=== PATIENT | male | born 1965 | race Caucasian/White ===

== ENCOUNTER 2018-04-02 12:38 | Emergency (ER) | payer MEDICAID ==
[~2018-04-02] VITALS: Ht 175.3 cm; Wt 72.6 kg
[2018-04-02] MEDS ORDERED: ADVIL200 MG PO (13:06)
[2018-04-02] MEDS ORDERED: LORAZEPAM2 MG PO (16:43)
[2018-04-02] MEDS ORDERED: ONDANSETRON ODT4 MG SL (16:44)
== END 2018-04-02 16:55 | disposition home or self-care (01) ==
LOC: ED 12:38
DX: F10.239 Alcohol dependence with withdrawal, unspecified (principal); R11.2 Nausea with vomiting, unspecified; R19.7 Diarrhea, unspecified; I10 Essential (primary) hypertension; F17.200 Nicotine dependence, unspecified, uncomplicated; Z88.8 Allergy status to other drugs, medicaments and biological substances; Z79.899 Other long term (current) drug therapy
CPT/HCPCS: 80053; 84484; 85025; 96360; 99284; J7030

== ENCOUNTER 2018-07-14 11:29 | Emergency (ER) | payer OTHER ==
[~2018-07-14] VITALS: Ht 175.3 cm; Wt 83.9 kg
[~2018-07-14 11:29] MED LIST: ADVIL200 MG PO; LORAZEPAM2 MG PO; ONDANSETRON ODT4 MG SL
[2018-07-14] MEDS ORDERED: PROPRANOLOL HCL10 MG PO (11:42)
[2018-07-14] MEDS ORDERED: LORAZEPAM1 MG PO (15:09)
== END 2018-07-14 15:34 | disposition home or self-care (01) ==
LOC: ED 11:29
DX: F43.10 Post-traumatic stress disorder, unspecified (principal); F41.9 Anxiety disorder, unspecified; F10.10 Alcohol abuse, uncomplicated; I10 Essential (primary) hypertension; F17.200 Nicotine dependence, unspecified, uncomplicated; Z88.6 Allergy status to analgesic agent; Z79.899 Other long term (current) drug therapy; Y90.7 Blood alcohol level of 200-239 mg/100 ml
CPT/HCPCS: 80053; 80176; 81001; 84443; 85025; 99284; G0480

== ENCOUNTER 2018-07-16 15:47 | Emergency (ER) | payer OTHER ==
[~2018-07-16] VITALS: Ht 175.3 cm; Wt 83.9 kg
[~2018-07-16 15:47] MED LIST changes: +LORAZEPAM1 MG PO; +PROPRANOLOL HCL10 MG PO
== END 2018-07-17 07:24 | disposition home or self-care (01) ==
LOC: ED 15:47
DX: T42.4X2A Poisoning by benzodiazepines, intentional self-harm, initial encounter (principal); F10.10 Alcohol abuse, uncomplicated; I10 Essential (primary) hypertension; F17.200 Nicotine dependence, unspecified, uncomplicated; Z79.899 Other long term (current) drug therapy; Y90.5 Blood alcohol level of 100-119 mg/100 ml
CPT/HCPCS: 36415; 80053; 80176; 81001; 85025; 96360; 99285; G0480; J7030

== ENCOUNTER 2019-09-12 18:58 | Emergency (ER) | payer OTHER ==
[~2019-09-12] VITALS: Ht 175.3 cm; Wt 96.6 kg
[2019-09-12] MEDS ORDERED: LEXAPRO20 MG PO (20:32)
[2019-09-12] MEDS ORDERED: ABILIFY5 MG PO (20:32)
[2019-09-12] MEDS ORDERED: CATAPRES0.3 MG PO (20:32)
[2019-09-12] MEDS ORDERED: HYDROXYZINE HCL25 MG PO (20:33)
== END 2019-09-12 23:26 | disposition home or self-care (01) ==
LOC: ED 18:58
DX: K52.9 Noninfective gastroenteritis and colitis, unspecified (principal); I10 Essential (primary) hypertension; F43.10 Post-traumatic stress disorder, unspecified; F17.200 Nicotine dependence, unspecified, uncomplicated; Z88.8 Allergy status to other drugs, medicaments and biological substances; Z79.899 Other long term (current) drug therapy
CPT/HCPCS: 80053; 81001; 83735; 85025; 96361; 96374; 99284-25; J2405; J7030

== ENCOUNTER 2020-03-19 12:18 | Emergency (ER) | payer OTHER ==
[~2020-03-19] VITALS: Ht 175.3 cm; Wt 95.3 kg
[~2020-03-19 12:18] MED LIST changes: +ABILIFY5 MG PO; +CATAPRES0.3 MG PO; +HYDROXYZINE HCL25 MG PO; +LEXAPRO20 MG PO
[2020-03-19] MEDS ORDERED: ALPRAZOLAM0.5 MG PO (12:38)
[2020-03-19] MEDS ORDERED: MINIPRESS2 MG PO (12:39)
[2020-03-19] MEDS ORDERED: MELATONIN10 MG PO (12:40)
--- NOTE | 2020-03-19 22:02 | EKG ---
[facility] [address] [facility] [place], [place] [address] Signed Normal sinus rhythm Cannot rule out Inferior infarct , age undetermined Abnormal ECG No previous ECGs available Confirmed by ISAIAH CONNER MD ([id number]) on 03/19/2020 10:02:29 PM Electronically Signed By: ISAIAH CONNER MD 03/19/202201 PATIENT NAME: LUCILLE PATEL Electrocardiogram DATE OF : 65 PHYSICIAN: ISAIAH CONNER MD REPORT #: [id number] REPORT IS CONFIDENTIAL AND NOT TO BE RELEASED WITHOUT AUTHORIZATION
== END 2020-03-19 14:07 | disposition home or self-care (01) ==
LOC: ED 12:18
DX: R20.0 Anesthesia of skin (principal); R20.2 Paresthesia of skin; G62.9 Polyneuropathy, unspecified; I10 Essential (primary) hypertension; F17.200 Nicotine dependence, unspecified, uncomplicated; Z79.899 Other long term (current) drug therapy
CPT/HCPCS: 70450; 71045; 80053; 84484; 85025; 85610; 85730; 93005; 93010; 99284-25

== ENCOUNTER 2020-07-27 12:30 | Observation (INO) | payer OTHER ==
[~2020-07-27] VITALS: Ht 175.3 cm; Wt 94.3 kg
--- OUTSIDE RECORDS SUMMARY | ~2020-07-27 | XMS | Clinical Summary ---
Demographics + + + | Address | [address] | | | [place] [address] | + + + | Home Phone | | + + + | Preferred Language | Unknown | + + + | Marital Status | | + + + | Yarsanism Affiliation | 1013 | + + + | Race | White | + + + | Ethnic Group | Not or | + + + Author + + + | Author | [facility] | | | and [place] | + + + | Organization | [facility] | | | and [place] | + + + | Address | Unknown | + + + | Phone | Unavailable | + + + Support + + + + + | Name | Relationship | Address | Phone | + + + + + | Susie Pollack | ECON | Unknown | | + + + + + | Mandeep Pollack | ECON | [place] [address] | | + + + + + Care Team Providers + +------+ + | Care [employer] Salesperson Name | Role | Phone | + +------+ + | Latasha Barnard | PCP | | + +------+ + Allergies No Known Allergies Medications + + + +---------+------+------+-------+ | Medication | Sig | Dispensed | Refills | Star | End | Statu | | | | | | t | Date | s | | | | | | Date | | | + + + +---------+------+------+-------+ | escitalopram | Take 30 mg by mouth | | 0 | | | Activ | | (LEXAPRO) 20 mg | Daily. | | | | | e | | tablet | | | | | | | + + + +---------+------+------+-------+ | prazosin | Take 5 mg by mouth | | 0 | | | Activ | | (MINIPRESS) 5 mg | nightly. | | | | | e | | capsule | | | | | | | + + + +---------+------+------+-------+ | ALPRAZolam (XANAX) | Take 0.5 mg by mouth | | 0 | | | Activ | | 0.5 mg tablet | Daily as needed. At | | | | | e | | | onset of panic | | | | | | | | attack | | | | | | + + + +---------+------+------+-------+ | clonazePAM | Take 1 mg by mouth | | 0 | | | Activ | | (KLONOPIN) 1 mg | nightly. | | | | | e | | tablet | | | | | | | + + + +---------+------+------+-------+ | busPIRone (BUSPAR) | Take 15 mg by mouth | | 0 | 05/1 | | Activ | | 10 MG tablet | 2 times daily. | | | 3/20 | | e | | | | | | 20 | | | + + + +---------+------+------+-------+ | acetaminophen | Take 1,000 mg by | | 0 | | | Activ | | (TYLENOL) 500 mg | mouth every 6 hours | | | | | e | | tablet | as needed for | | | | | | | | Headaches. | | | | | | + + + +---------+------+------+-------+ | Melatonin 10 MG | Take 10 mg by mouth | | 0 | | | Activ | | TABS | nightly. | | | | | e | + + + +---------+------+------+-------+ | aspirin 81 MG EC | Take 1 tablet by | 30 | 0 | 05/1 | | Activ | | tablet | mouth Daily. | tablet | | 04/16 | | e | | | | | | 20 | | | + + + +---------+------+------+-------+ +---+ + | | Additional | | | InformationPatient | | | not taking. Reason: | | | Not Available, | | | Reported on | | | 04/11/2020 9:20 AM | +---+ + + + +--------+---+------+---+-------+ | atorvaSTATin | Take 1 tablet by | 30 | 0 | 05/1 | | Activ | | (LIPITOR) 80 MG | mouth nightly. | tablet | | 03/17 | | e | | tablet | | | | 20 | | | + + +--------+---+------+---+-------+ +---+ + | | Additional | | | InformationPatient | | | not taking. Reason: | | | Not Available, | | | Reported on | | | 04/11/2020 9:20 AM | +---+ + + + +--------+---+------+---+-------+ | clonazePAM | Take 1 mg by mouth | | 0 | | | Activ | | (KLONOPIN) 1 mg | as needed. At onset | | | | | e | | tablet | of panic attack. No | | | | | | | | more than 2 tablets | | | | | | | | per day. (Give with | | | | | | | | Alprazolam) | | | | | | + + +--------+---+------+---+-------+ | hydrOXYzine | Take 50-100 mg by | | 0 | | | Activ | | (VISTARIL) 50 MG | mouth Twice daily | | | | | e | | capsule | as needed for | | | | | | | | Anxiety. | | | | | | + + +--------+---+------+---+-------+ | sildenafil | Take 100 mg by mouth | | 0 | | | Activ | | (VIAGRA) 100 MG | as needed for | | | | | e | | tablet | Erectile | | | | | | | | Dysfunction. Not to | | | | | | | | exceed 4 tabs in 1 | | | | | | | | month | | | | | | + + +--------+---+------+---+-------+ | lidocaine | Place 1 patch onto | | 0 | | | Activ | | (LIDODERM) 5% patch | the skin Daily. | | | | | e | | | Apply for 12 hours, | | | | | | | | then remove for 12 | | | | | | | | hours. | | | | | | + + +--------+---+------+---+-------+ | calcium carbonate | Chew and swallow 2 | | 0 | | | Activ | | (TUMS) 500 mg | tablets Daily as | | | | | e | | chewable tablet | needed for | | | | | | | | Heartburn. | | | | | | + + +--------+---+------+---+-------+ | ARTIFICIAL TEAR | Apply 2-3 drops to | | 0 | | | Activ | | SOLUTION OP | eye Twice daily as | | | | | e | | | needed (dry/itchy | | | | | | | | eyes). | | | | | | + + +--------+---+------+---+-------+ | cloNIDine | Take 1 tablet by | 60 | 3 | 05/2 | | Activ | | (CATAPRES) 0.1 mg | mouth 2 times daily. | tablet | | 7/20 | | e | | tablet | | | | 20 | | | + + +--------+---+------+---+-------+ | nicotine | Place 1 patch onto | 30 | 2 | 05/2 | | Activ | | (NICODERM) 14 mg/24 | the skin Daily. | patch | | 8/20 | | e | | hr | | | | 20 | | | + + +--------+---+------+---+-------+ | clopidogrel | Take 1 tablet by | 30 | 3 | 05/2 | | Activ | | (PLAVIX) 75 mg | mouth Daily. | tablet | | 7/20 | | e | | tablet | | | | 20 | | | + + +--------+---+------+---+-------+ Active Problems + + + | Problem | Noted Date | + + + | Dysphagia, oral phase | 07/11/2020 | + + + | Ischemic cerebrovascular accident (CVA) | 04/08/2020 | + + + | Hypertension | 04/08/2020 | + + + | Tobacco abuse | 04/08/2020 | + + + Encounters +--------+ + + + + | Date | Type | Specialty | Care Team | Description | +--------+ + + + + | 07/14/ | Telephone | Rehabilitation | Lenora Delgado, | Appointment | | 2019 | | | Speech Pathologist | | +--------+ + + + + | 07/10/ | Office | Rehabilitation | Lenora Delgado, | Ischemic | | 2019 | Visit | | Speech Pathologist | cerebrovascular | | | | | | accident (CVA) (HCC) | | | | | | (Primary Dx); | | | | | | Dysphagia, oral | | | | | | phase | +--------+ + + + + from Last 3 Months Social History + + + +--------+------+ | Tobacco Use | Types | Packs/Day | Years | Date | | | | | Used | | + + + +--------+------+ | Current Every Day | Cigarettes | | | | | Smoker | | | | | + + + +--------+------+ + +---+---+---+ | Smokeless Tobacco: | | | | | Never Used | | | | + +---+---+---+ + + +---------+ + | Alcohol Use | Drinks/Week | oz/Week | Comments | + + +---------+ + | Not Currently | | | | + + +---------+ + + + + | Sex Assigned at | Date Recorded | | | | + + + | Not on file | | + + + Last Filed Vital Signs + + + + + | Vital Sign | Reading | Time Taken | Comments | + + + + + | Blood Pressure | 123/63 | 04/23/2020 8:25 AM | | | | | PDT | | + + + + + | Pulse | 62 | 04/23/2020 8:25 AM | | | | | PDT | | + + + + + | Temperature | 37.1 C (98.7 F) | 04/23/2020 8:25 AM | | | | | PDT | | + + + + + | Respiratory Rate | 16 | 04/23/2020 8:25 AM | | | | | PDT | | + + + + + | Oxygen Saturation | 97% | 04/23/2020 8:25 AM | | | | | PDT | | + + + + + | Inhaled Oxygen | - | - | | | Concentration | | | | + + + + + | Weight | 93.8 kg (206 lb 12.7 | 04/17/2020 4:54 AM | | | | oz) | PDT | | + + + + + | Height | 175.3 cm (5' 9") | 04/10/2020 6:51 PM | | | | | PDT | | + + + + + | Body Mass Index | 30.54 | 04/10/2020 6:51 PM | | | | | PDT | | + + + + + Plan of Treatment +--------+---------+ + + + | Date | Type | Specialty | Care Team | Description | +--------+---------+ + + + | 07/29/ | Office | Rehabilitation | Lenora Delgado, | | | 2019 | Visit | | Speech Pathologist | | +--------+---------+ + + + | 08/05/ | Office | Rehabilitation | Lenora Delgado, | | | 2019 | Visit | | Speech Pathologist | | +--------+---------+ + + + | 08/07/ | Office | Rehabilitation | Lenora Delgado, | | | 2019 | Visit | | Speech Pathologist | | +--------+---------+ + + + + + +-------+ + | Health Maintenance | Due Date | Last | Comments | | | | Done | | + + +-------+ + | Hepatitis C | | | | | Screening | 5 | | | + + +-------+ + | Vaccine: | | | | | Pneumococcal 19-64 | 1 | | | | (1 of 1 - PPSV23) | | | | + + +-------+ + | Vaccine: | | | | | Dtap/Tdap/Td (1 - | 4 | | | | Tdap) | | | | + + +-------+ + | Colorectal Cancer | | | | | Screening | 5 | | | | (Colonoscopy) | | | | + + +-------+ + | Vaccine: Zoster (1 | | | | | of 2) | 5 | | | + + +-------+ + | Vaccine: Influenza | | | | | (#1) | 0 | | | + + +-------+ + Results Not on filefrom Last 3 Months Insurance + +--------+ +--------+-------+---------+--------+ | Payer | Benefi | Subscriber | Effect | Phone | Address | Type | | | t Plan | ID | ashish | | | | | | / | | Dates | | | | | | Group | | | | | | + +--------+ +--------+-------+---------+--------+ | [employer] | [employer] | [id number] | 05/02/20 | | | Indemn | | | NS | | 18-Pre | | | ity | | | ADMIN | | sent | | | | | | [place] | | | | | | | | [place] | | | | | | + +--------+ +--------+-------+---------+--------+ | [employer] | [employer] | [id number] | 05/02/20 | | | Indemn | | | NS | | 18-Pre | | | ity | | | ADMIN | | sent | | | | | | [place] | | | | | | | | [place] | | | | | | + +--------+ +--------+-------+---------+--------+ | [employer] | [place] | [id number] | 04/04/20 | | | Indemn | | | COMMUN | | 20-Pre | | | ity | | | ITY | | sent | | | | | | CARE | | | | | | + +--------+ +--------+-------+---------+--------+ + +--------+ +--------+ + + | Guarantor Name | Accoun | Relation to | Date | Phone | Billing Address | | | t Type | Patient | of | | | | | | | | | | + +--------+ +--------+ + + | Efren Pollack | Person | Self [birth year] | [address] | | | al/Fam | | 1965 | [phone] | [place] [address] | | | aline | | | 4 (Home) | | + +--------+ +--------+ + + | Efren Pollack | Person | Self | [birth year][address] | | [address] | | | al/Fam | | 1965 | [phone] | [place] [address] | | | aline | | | 4 (Home) | | + +--------+ +--------+ + + | Efren Pollack | Person | Self | [address] | | [address] | | | al/Fam | | 1965 | [phone] | [place] [address] | | | aline | | | 4 (Home) | | + +--------+ +--------+ + + Advance Directives + + + + + | Type | Date Recorded | Patient | Explanation | | | | Nanofabrication Specialist | | + + + + + | Power of | | | | | Steerer | | | | + + + + + | Advance | 04/08/2020 4:07 | | | | Directive | PM | | | + + + + + + + + + + | Code Status | Date | Date | Comments | | | Activated | Inactivated | | + + + + + | Full Code | 04/10/2020 | 04/23/2020 | | | | 6:51 PM | 2:15 PM | | + + + + + + + + +---+ | | | | | + + + +---+ | Full Code | 04/08/2020 | 04/10/2020 | | | | 9:07 PM | 6:44 PM | | + + + +---+
--- OUTSIDE RECORDS SUMMARY | ~2020-07-27 | XMS | Encounter Summary ---
Demographics + + + | Address | [address] | | | [place] [address] | + + + | Home Phone | | + + + | Preferred Language | Unknown | + + + | Marital Status | | + + + | Jehovah'S Witness Affiliation | 1013 | + + + | Race | White | + + + | Ethnic Group | Not or | + + + Author + + + | Author | [facility] | | | and [place] | + + + | Organization | [facility] | | | and [...] Mandeep Pollack | ECON | [place] [address] | | + + + + + Care Team Providers + +------+ + | Care Furniture Salesperson Name | Role | Phone | + +------+ + | Latasha Barnard | PCP | | + +------+ + Reason for Visit + + + | Reason | Comments | + + + | Headache (Adult - | | | New Onset Or New | | | Symptoms) | | + + + Auth/Cert +--------+--------+ + + + + | Status | Reason | Specialty | Diagnoses / | Referred By | Referred To | | | | | Procedures | Contact | Contact | +--------+--------+ + + + + | | | | Diagnoses | | | | | | | | | | | | | | Cerebrovascu | | | | | | | lar accident | | | | | | | (CVA), | | | | | | | unspecified | | | | | | | mechanism | | | | | | | (HCC) | | | +--------+--------+ + + + + Encounter Details +--------+ + + + + | Date | Type | Department | Care Team | Description | +--------+ + + + + | 04/08/ | Hospital | [facility] | Carter Hope MD | Cerebrovascular | | 2019 - | Encounter | MED CTR SUR[facility] | [address] | accident (CVA), | | | | [address] [place] | [place] | unspecified | | 04/10/ | | [place] [address] | [id number] | mechanism (HCC) | | 2019 | | [phone] | | (Primary Dx) | | | | | Loraine Mccallum, | | | | | | [address] | | | | | | [place] | | | | | | [phone] | | | | | | | | +--------+ + + + + Social History + + + +--------+------+ | [...] on file | | + + + documented as of this encounter Last Filed Vital Signs + + + + + | Vital Sign | Reading | Time Taken | Comments | + + + + + | Blood Pressure | 127/76 | 04/10/2020 3:13 PM | | | | | PDT | | + + + + + | Pulse | 62 | 04/10/2020 3:13 PM | | | | | PDT | | + + + + + | Temperature | 35.8 C (96.4 F) | 04/10/2020 3:13 PM | | | | | PDT | | + + + + + | Respiratory Rate | 19 | 04/10/2020 3:13 PM | | | | | PDT | | + + + + + | Oxygen Saturation | 94% | 04/10/2020 3:13 PM | | | | | PDT | | + + + + + | Inhaled Oxygen | - | - | | | Concentration | | | | + + + + + | Weight | 104.3 kg (230 lb) | 04/08/2020 3:17 PM | | | | | PDT | | + + + + + | Height | 175.3 cm (5' 9") | 04/08/2020 3:17 PM | | | | | PDT | | + + + + + | Body Mass Index | 33.97 | 04/08/2020 3:17 PM | | | | | PDT | | + + + + + documented in this encounter Discharge Summaries Kristopher Rios MD - 04/10/2020 4:15 PM PDTFormatting of this note might be differen t from the original. [facility] [place] HOSPITALIST DISCHARGE SUMMARY Pt. Name/Age/: Efren Pollack 55 y.o. 1965 Date of Admission: 04/08/2020 Date of Discharge: 04/10/2020 Admitting Physician: Loraine cMcallum MD Primary Care Provider: KORY Galarza Discharging Physician: Kristopehr Rios MD DISCHARGE DIAGNOSES: Active Hospital Problems Diagnosis Ischemic cerebrovascular accident (CVA) Hypertension Tobacco abuse Resolved Hospital Problems No resolved problems to display. DISCHARGE MEDICATIONS: Discharge Medications New Medications Details aspirin 81 MG EC tablet Take 1 tablet by mouth Daily. Start: April 11, 2020 atorvaSTATin 80 MG tablet Take 1 tablet by mouth nightly. aka: LIPITOR clopidogrel 75 mg tablet Take 1 tablet by mouth Daily. aka: PLAVIX Start: April 11, 2020 Unchanged Medications Details acetaminophen 325 mg tablet Take 650 mg by mouth every 4 hours as needed for Pain. aka: TYLENOL ALPRAZolam 0.5 mg tablet Take 0.5 mg by mouth 3 times daily as needed for Anxiety. aka: XANAX busPIRone 15 mg tablet Take 15 mg by mouth 2 times daily. aka: BUSPAR clonazePAM 1 mg tablet Take 1 mg by mouth nightly as needed for Anxiety. aka: klonoPIN cloNIDine 0.2 MG tablet Take 0.2 mg by mouth 2 times daily. aka: CATAPRES escitalopram 10 mg tablet Take 30 mg by mouth Daily. aka: LEXAPRO hydrOXYzine 50 MG tablet Take 100 mg by mouth 3 times daily as needed for Itching. aka: ATARAX melatonin 1 mg Tabs Take 10 mg by mouth nightly as needed. prazosin 5 mg capsule Take 5 mg by mouth nightly. aka: MINIPRESS [facility] COURSE: Please refer to the H&P for full details and the most recent rounding rounding (progress) n ote. 55M PMhx HTN, Anxiety, Depression, presented with around 2-3 weeks of left sided weakness, mild expressive aphasia and left visual field deficits, progressively worsened, admitted for subacute ischemic CVA, no current hemorrhagic conversion. #Acute Ischemic CVA, right posterior cerebral artery distribution Please see H&P for details. In brief, patient noticed to have symptoms of left sided weakne ss 03/19, evaluated in [place] and had a nonemegent outpatient MRI that was done on 04/03. Co ncern for hemorrhage at on 04/03 MRI brain and patient noted not to be on aspirin/plavix possi silva because of that finding, however it was unclear if it was stroke at that point and MS neo s on the differential. Weakness and left sided peripheral vision persisted and reevaluated i n [place] transferred to [place] for MRI. 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 As d iscussed below the admitting provider and Dr. Rios discussed findings with telestroke. Aspi rin/plavix and statin started on 04/08 after CTA findings and tpa/thrombectomy not indicated given length of symptoms. During hospitalization symptoms did not worsen, headache controlle d with tylenol during admission. No new neurologic symptoms during admission. Patient evalua singh by inpatient rehab and admitted to IPR on 04/[address] Vanegas's service. Recommend to continue telemetry during IPR service, recommend 30 day holter monitor to be arranged as ou tpatient, I discussed with [facility] that this can be arranged as outpatient. ECHO 04/09 not ed EF 65% with possible diastolic dysfunction, patient may have component of CHFpEF but on r oom air and euvolemic this can be followed up as outpatient, no diuresis required at time of discharge. As noted per progress note: MRI brain 04/09: Right posterior cerebral artery distribution: right occipital love, posteri or medial right tempral lobe, posterior right corpus callosm, posterior right thalamus. Like ly Subacute in nature. 04/08 CTA head/neck: Occlusion of right posterior cerebral artery Telestroke said to have been consulted but currently no note, will d/w telestroke with abov e finding. Dr. Reyes. Discussed case with him, agrees would not benefit from tpa at this luis e and to prevent further insults with aspirin/plavix/statin. Also recommended holter monitor Initial insult likely 03/19 and seen in [facility] in [place], was to follow up outp atient but has not yet prior to admission on 04/08. Not Tpa candidate. 04/09 ECHO: EF stable, possible diastolic dysfunction noted, no PFO, no clot 04/10: no new neurologic changes. IPR evaluation. Patient stable for discharge once able. -30 day Holter monitor as outpatient after discussion with tele stroke on 04/09 -Inpatient rehab -continue aspirin/plavix and high dose statin -smoking cessation, counseled #HTN Continue clonidine, permissive HTN #Anxiety/Depression Clonazapem, Xanax, escitalopram #Tobacco use. Nicotine patch, cessation Most recent weight: Input and output for last 24hrs: Wt Readings from Last 1 Encounters: 04/08/20 104.3 kg (230 lb) I/O last 24 Hours: In: 2009 [P.O.:2009] Out: 750 [Urine:750] Vitals Ranges: Temp: [35.7 C (96.2 F)-36.7 C (98 F)] 35.8 C (96.4 F) Pulse: [52-95] 62 Resp: [16-19] 19 BP: (105-132)/(61-76) 127/76 Vitals: Temp: 35.8 C (96.4 F) BP: 127/76 Pulse: 62 Resp: 19 SpO2: 94 % SpO2 94 % on room air at flow rate 3L/min PHYSICAL EXAM: Patient seen and examined by me on discharge day General NAD, AOx3 Cardiac RRR, no murmurs rubs or gallups Extremities No edema Lung CTA bilaterally Abdominal Soft, NT, ND, NBS Neuro Balance disturbance but cerebellar signs intact, 5/5 MS bilaterally, sluggish movement of l eft arm and leg noticeable but full range of motion, no facial assymmetry, no slurred speech . Noticeable left sided hemianopsia central vision both eyes is spared PROCEDURES AND CONSULTS: Procedures 04/09 MRI brain without contrast IMPRESSION: Right posterior cerebral artery distribution infarction involving the right occipital lobe, posterior medial right temporal lobe, posterior right corpus callosum, and posterior right thalamus. Nonspecific T2/FLAIR hyperintense periventricular and subcortical white matter findings likely reflect chronic microvascular changes. Chronic basal ganglia lacunar infarctions. Mastoid effusions, left greater than right. 04/08 CTA head neck IMPRESSION: Occlusion of the right posterior cerebral artery approximately 1 cm from its origin. High-grade and moderate to high-grade narrowing in the intracranial right and left vertebral arteries. No definite posterior communicating arteries. No significant atherosclerotic narrowing in the internal carotid arteries Bilaterally. CT head without contrast IMPRESSION: Findings in the right occipital and temporal lobes consistent with the history of subacute ischemia and probable cortical mineralization. Encephalomalacia in the left cerebellar hemisphere is diffusely with a chronic infarct. Bilateral white matter disease. Left otitis media. Consults Telestroke PT/OT IPR CM PENDING RESULTS: DISPOSITION AND DISCHARGE INSTRUCTIONS: Follow-up Information KORY Galarza. Schedule an appointment as soon as possible for a visit in 1 week. Specialty: Family Nurse Practitioner Why: Hospital follow up [facility] [address] Condition: Patient being discharged with condition improved Transferred to Inpatient rehab Diet: cardiac Greater than 30 minutes were spent on discharge and coordination of post-hospital care. Electronically signed by: Kristopher Rios MD, 04/10/2020 4:31 PM [facility] Reference. This is NOT part of the patient's formal assessment section. In the assessment or plan section of notes the author may date some of the subsections with a number such as "23" or "23rd" to indicate the date of that entry or event. In the example below the 1st line is the original entry and the subsequent lines indicate flowing updates to the subsection: Example assessment subsection (such as CHF or CP or Pneumonia) Patient is improved today with resolution of symptoms 24th Worse with recurrence of symptoms requiring further testing Portions of this chart may have been created with [employer] voice recognition software. Occasi onal wrong-word or sound-alike substitutions may have occurred due to the inherent phillips itations of voice recognition software. Please read the chart carefully and recognize, using context, where these substitutions have occurred documented in th is encounter Medications at Time of Discharge + + + +---------+ + + | Medication | Sig | Dispensed | Refills | Start | End Date | | | | | | Date | | + + + +---------+ + + | acetaminophen | Take 1,000 mg by | | 0 | | | | (TYLENOL) 500 mg | mouth every 6 hours | | | | | | tablet | as needed for | | | | | | | Headaches. | | | | | + + + +---------+ + + | ALPRAZolam (XANAX) | Take 0.5 mg by mouth | | 0 | | | | 0.5 mg tablet | Daily as needed. At | | | | | | | onset of panic | | | | | | | attack | | | | | + + + +---------+ + + | ARTIFICIAL TEAR | Apply 2-3 drops to | | 0 | | | | SOLUTION OP | eye Twice daily as | | | | | | | needed (dry/itchy | | | | | | | eyes). | | | | | + + + +---------+ + + | aspirin 81 MG EC | Take 1 tablet by | 30 | 0 | / | | | tablet | mouth Daily. | tablet | | 20 | | + + + +---------+ + + | atorvaSTATin | Take 1 tablet by | 30 | 0 | / | | | (LIPITOR) 80 MG | mouth nightly. | tablet | | 20 | | | tablet | | | | | | + + + +---------+ + + | busPIRone (BUSPAR) | Take 15 mg by mouth | | 0 | / | | | 10 MG tablet | 2 times daily. | | | 20 | | + + + +---------+ + + | calcium carbonate | Chew and swallow 2 | | 0 | | | | (TUMS) 500 mg | tablets Daily as | | | | | | chewable tablet | needed for | | | | | | | Heartburn. | | | | | + + + +---------+ + + | clonazePAM | Take 1 mg by mouth | | 0 | | | | (KLONOPIN) 1 mg | as needed. At onset | | | | | | tablet | of panic attack. No | | | | | | | more than 2 tablets | | | | | | | per day. (Give with | | | | | | | Alprazolam) | | | | | + + + +---------+ + + | clonazePAM | Take 1 mg by mouth | | 0 | | | | (KLONOPIN) 1 mg | nightly. | | | | | | tablet | | | | | | + + + +---------+ + + | cloNIDine | Take 1 tablet by | 60 | 3 | 04/23/20 | | | (CATAPRES) 0.1 mg | mouth 2 times daily. | tablet | | 20 | | | tablet | | | | | | + + + +---------+ + + | clopidogrel | Take 1 tablet by | 30 | 3 | 04/23/20 | | | (PLAVIX) 75 mg | mouth Daily. | tablet | | 20 | | | tablet | | | | | | + + + +---------+ + + | escitalopram | Take 30 mg by mouth | | 0 | | | | (LEXAPRO) 20 mg | Daily. | | | | | | tablet | | | | | | + + + +---------+ + + | hydrOXYzine | Take 50-100 mg by | | 0 | | | | (VISTARIL) 50 MG | mouth Twice daily | | | | | | capsule | as needed for | | | | | | | Anxiety. | | | | | + + + +---------+ + + | lidocaine | Place 1 patch onto | | 0 | | | | (LIDODERM) 5% patch | the skin Daily. | | | | | | | Apply for 12 hours, | | | | | | | then remove for 12 | | | | | | | hours. | | | | | + + + +---------+ + + | Melatonin 10 MG | Take 10 mg by mouth | | 0 | | | | TABS | nightly. | | | | | + + + +---------+ + + | nicotine | Place 1 patch onto | 30 | 2 | //20 | | | (NICODERM) 14 mg/24 | the skin Daily. | patch | | 20 | | | hr | | | | | | + + + +---------+ + + | prazosin | Take 5 mg by mouth | | 0 | | | | (MINIPRESS) 5 mg | nightly. | | | | | | capsule | | | | | | + + + +---------+ + + | sildenafil | Take 100 mg by mouth | | 0 | | | | (VIAGRA) 100 MG | as needed for | | | | | | tablet | Erectile | | | | | | | Dysfunction. Not to | | | | | | | exceed 4 tabs in 1 | | | | | | | month | | | | | + + + +---------+ + + | busPIRone (BUSPAR) | Take 10 mg by mouth | | 0 | 03/30/20 | | | 10 MG tablet | 2 times daily. For 5 | | | 20 | 0 | | | days | | | | | + + + +---------+ + + | busPIRone (BUSPAR) | Take 10 mg by mouth | | 0 | 04/04/20 | | | 10 MG tablet | every morning and 15 | | | 20 | 0 | | | mg every evening | | | | | | | for 5 days. | | | | | + + + +---------+ + + | cloNIDine | Take 0.2 mg by mouth | | 0 | 04/04/20 | | | (CATAPRES) 0.2 MG | 2 times daily. | | | 20 | 0 | | tablet | | | | | | + + + +---------+ + + | cloNIDine | Take 0.2 mg by mouth | | 0 | | | | (CATAPRES) 0.2 MG | 2 times daily. | | | | 0 | | tablet | | | | | | + + + +---------+ + + | cloNIDine | Take 0.15 mg by | | 0 | | | | (CATAPRES) 0.3 MG | mouth 2 times daily. | | | | 0 | | tablet | | | | | | + + + +---------+ + + | clopidogrel | Take 1 tablet by | 30 | 0 | 04/11/20 | | | (PLAVIX) 75 mg | mouth Daily. | tablet | | 20 | 0 | | tablet | | | | | | + + + +---------+ + + | hydrOXYzine | Take 100 mg by mouth | | 0 | | | | (ATARAX) 50 MG | 3 times daily as | | | | 0 | | tablet | needed for Itching. | | | | | + + + +---------+ + + | prazosin | Take 2 mg by mouth | | 0 | | | | (MINIPRESS) 2 MG | nightly. | | | | 0 | | capsule | | | | | | + + + +---------+ + + | tetrahydrozoline | Place 2 drops into | | 0 | | | | (VISINE) 0.05% | both eyes Twice | | | | 0 | | ophthalmic solution | daily as needed. | | | | | | | Dry/itchy eyes | | | | | + + + +---------+ + + documented as of this encounter Progress Notes Kristopher Rios MD - 04/10/2020 11:57 AM PDTFormatting of this note might be differen t from the original. [place], [place] HOSPITALIST PROGRESS NOTE Patient: Efren Pollack : 1965: Age: 55 y.o. MedRec: [id number] PCP: KORY Galarza Admission date: 04/08/2020 Hospital day # : 2 Physician author: Kristopher Rios MD Today: 04/10/2020 Assessment and Hospital Course Active Hospital Problems Diagnosis Ischemic cerebrovascular accident (CVA) Hypertension Tobacco abuse Resolved Hospital Problems No resolved problems to display. 55M PMhx HTN, Anxiety, Depression, presented with around 2-3 weeks of left sided weakness, mild expressive aphasia and left visual field deficits, progressively worsened, admitted for subacute ischemic CVA, no hemorrhagic conversion identified on scans during this admission. Plan #Acute Ischemic CVA, right posterior cerebral artery distribution MRI brain 04/09: Right posterior cerebral artery distribution: right occipital love, posteri or medial right tempral lobe, posterior right corpus callosm, posterior right thalamus. Like ly Subacute in nature. 04/08 CTA head/neck: Occlusion of right posterior cerebral artery Telestroke said to have been consulted but currently no note, will d/w telestroke with abov e finding. Dr. Reyes. Discussed case with him, agrees would not benefit from tpa at this luis e and to prevent further insults with aspirin/plavix/statin. Also recommended holter monitor Initial insult likely 03/19 and seen in [facility] in [place], was to follow up outp atient but has not yet prior to admission on 04/08. Not Tpa candidate. 04/09 ECHO: EF stable, possible diastolic dysfunction noted, no PFO, no clot 04/10: no new neurologic changes. IPR evaluation. Patient stable for discharge once able. -30 day Holter monitor as outpatient after discussion with tele stroke on 04/09 -Inpatient rehab consult, can benefit from structured setting -continue aspirin/plavix and high dose statin -smoking cessation, counseled #HTN Continue clonidine, permissive HTN #Anxiety/Depression Clonazapem, Xanax, escitalopram #Tobacco use. Nicotine patch, cessation DVT PPx: lovenox GI PPx: protonix Diet: cardiac diet DIspo: Pending IPR evaluation per PT/OT. Given [facility] coverage may not qualify, will follow up if can be transferred to SNF for PT/OT vs home with home health PT/OT. Kristopher Rios MD 04/10/2020 11:57 AM Merged with [facility] Subjective CC Had frontal headache overnight, controlled with tylenol. No new neurologic changes overnigh t, sluggishness of left arm and leg. Left peripheral vision deficit continued. ROS See above Objective Exam General NAD, AOx3 Cardiac RRR, no murmurs rubs or gallups Extremities No edema Lung CTA bilaterally Abdominal Soft, NT, ND, NBS Neuro Balance disturbance but cerebellar signs intact, 5/5 MS bilaterally, sluggish movement of l eft arm and leg noticeable but full range of motion, no facial assymmetry, no slurred speech . Noticeable left sided hemianopsia central vision both eyes is spared Serial weights: Filed Weights: 04/08/20 1517 Weight: 104.3 kg (230 lb) Most recent weight: Input and output 2 shifts and 3 shifts: Wt Readings from Last 1 Encounters: 04/08/20 104.3 kg (230 lb) I/O last 24 Hours: In: 2009 [P.O.:2009] Out: 750 [Urine:750] I/O last 3 completed shifts: In: 2010 [P.O.:2009] Out: 1100 [Urine:1100] Vitals Ranges: Temp: [35.7 C (96.2 F)-36.7 C (98 F)] 36.2 C (97.2 F) Pulse: [52-95] 95 Resp: [16-18] 16 BP: (105-132)/(61-75) 132/67 Vitals: Temp: 36.2 C (97.2 F) BP: 132/67 Pulse: 95 Resp: 16 SpO2: 96 % SpO2 96 % on room air at flow rate 3L/min Diet and Supplements Diet Diet fat and cholesterol modified; Effective Now Number of Occurrences: Until Specified Order Questions: Type Diet fat and cholesterol modified Objective Data Allergies: No Known Allergies Current Medications: Current Facility-Administered Medications Medication Dose Route Frequency Provider Last Rate Last Dose acetaminophen (TYLENOL) 160 mg/5 mL liquid 650 mg 650 mg Per NG tube Q4H PRN Loraine conti MD Or acetaminophen (TYLENOL) tablet 650 mg 650 mg Oral Q4H PRN Loraine Mccallum MD 650 mg at 04/09/20 1716 Or acetaminophen (TYLENOL) suppository 650 mg 650 mg Rectal Q4H PRN Loraine Mccallum MD ALPRAZolam (XANAX) tablet 0.5 mg 0.5 mg Oral TID PRN Loraine Mccallum MD 0.5 mg at 0 04/08/202256 aspirin EC tablet 81 mg 81 mg Oral Daily Loraine Mccallum MD 81 mg at 04/10/20918 atorvaSTATin (LIPITOR) tablet 80 mg 80 mg Oral Nightly Loraine Mccallum MD 80 mg at 04/09/202012 busPIRone (BUSPAR) tablet 15 mg 15 mg Oral BID Loraine Mccallum MD 15 mg at 04/10/20918 clonazePAM (klonoPIN) tablet 1 mg 1 mg Oral Nightly PRN Loraine Mccallum MD 1 mg at 04/09/202012 cloNIDine (CATAPRES) tablet 0.2 mg 0.2 mg Oral BID Loraine Mccallum MD 0.2 mg at 918 clopidogrel (PLAVIX) tablet 75 mg 75 mg Oral Daily Loraine Mccallum MD 75 mg at 03/28 docusate sodium (COLACE) capsule 100 mg 100 mg Oral BID PRN Loraine Mccallum MD enoxaparin (LOVENOX) 40 mg/0.4 mL injection 40 mg 40 mg Subcutaneous Daily Kristopher Cabello or MD Gabriel 40 mg at 04/10/20919 escitalopram (LEXAPRO) tablet 30 mg 30 mg Oral Daily Loraine Mccallum MD 30 mg at 918 nicotine (NICODERM) 14 mg/24 hr 1 patch 1 patch Transdermal Daily Loraine Mccallum MD 1 patch at 05/14/20 0921 ondansetron (ZOFRAN) injection 4 mg 4 mg Intravenous Q6H PRN Loraine Mccallum MD pantoprazole (PROTONIX) DR tablet 40 mg 40 mg Oral QAM AC Kristopher Rios MD 40 mg at 04/10/20 0634 polyethylene glycol (MIRALAX) powder 17 g 17 g Oral Daily PRN Loraine Mccallum MD prazosin (MINIPRESS) capsule 5 mg 5 mg Oral Nightly Loraine Mccallum MD 5 mg at 03/28 Current Infusions: Hematology and anemia Recent Labs Lab 04/10/2045704/09/206 04/08/20 1528 WBC 6.8 6.8 6.9 HGB 14.9 14.7 14.8 HCT 43.3 42.1 42.1 PLT 239 250 253 NEUPCT 52.3 53.7 50.0 Recent Labs Lab 04/09/2044604/08/20 1528 PROTIME 12.8 13.4 INR 0.9 1.0 No results for input(s): IRON, TIBC, PCTSAT, FERRITIN, TSH, LOLYPLNQ90, FOLATE in the last 168 hours. Inflammatory markers No results for input(s): LACTATE, PROCALCITONI, CRP, ESR in the last 168 hours. Chemistry Recent Labs Lab 04/10/2045704/09/207 04/08/20 1528 GLU 92 106 82 NA 140 140 139 K 4.0 3.7 3.9 CL 111* 109* 106 CO2 26 27 30 ANIONGAP 3 4 3 BUN 11 11 13 CREA 0.78 0.78 0.85 GFRNONAA >60 >60 >60 CALCIUM 9.3 9.4 9.8 Recent Labs Lab 04/10/2045704/09/20 044 MG 1.8 1.9 No results for input(s): AMYLASE, LIPASE in the last 168 hours. Recent Labs Lab 04/09/20446 TRIG 152* CHOL 149 HDL 28* LDL 91 No results for input(s): AMMONIA in the last 168 hours. Cardiology & Digoxin No results for input(s): TROPONIN, CK, CKMB, BNP, DIGOXIN in the last 168 hours. Invalid input(s): CKTOTAL ABG No results for input(s): PHART, PO2ART, BYO3PMZ, DYW4CDQ, BEART, Q4YFIHIT in the last 168 h ours. No results for input(s): SPECSOURCE, PHPOCB, PCO2, PO2, HCO3, TCO2, BEART, [id number] in the last 168 hours. Drug of overdose and abuse No results for input(s): ALCOHOL, ACTMN, SALICYLATE in the last 168 hours. No results for input(s): AMPHEQUAL, BARBITURATE, BENZSCR, CANNIBSCR, AMPHETAMINE, METHADSCR , OPIATESCR in the last 168 hours. Urinalysis No results for input(s): GLUCOSEU, WBCUA, RBCUA, SQUAMEPIUA, BACTERIAUA, CULTIF in the last 168 hours. Point of care glucose Recent Labs Lab 04/10/20 0635 04/09/20 2031 04/09/20 1633 04/09/20 1158 04/09/20 0643 POCGLU 102 104 100 138* 92 Micro results more choices using dot micro (below is last 7 days) Microbiology Results (Last 7) Date with Culture/Sensitivity) No results found for the last 168 hours. Radiology results (more choices using dot risresults) Ct Head Wo Contrast Result Date: 04/08/2020 EXAM: CT HEAD WO CONTRAST dated 04/08/2020 3:27 PM HISTORY: Emergent Patient - see comments Pain Comparison: None. TECHNIQUE: Noncontrast CT is performed from the top of calvarium thr ough the skull base. Coronal and sagittal reformats are performed. DOSE: DLP 735.38 mGy-cm FINDINGS: BRAIN: No significant cerebral or cerebellar atrophy. There is some subtle gyral hyperintensity in portions of the right occipital lobe and medial temporal lobe. There is a prominent area of hypoattenuation in some loss of shah-white differentiation throughout th is same region. There is no associated mass effect. There are areas of hypoattenuation in the periventricular white matter of both frontal lobes. There is a focal area of hypodensit y in the left cerebellar hemisphere that may be encephalomalacia. There is appropriate size and configuration of the ventricles. Bilateral basal ganglia mineralization. Calcified dis ease in the cavernous carotids and posterior circulation. SCALP/ CALVARIUM: The scalp and sk ull are intact and are unremarkable. SINUSES / ORBITS/ MASTOIDS: There is a small amount of opacification in the inferior right mastoid air cells. There is diffuse opacification throu ghout the left middle ear. There is mild mucosal thickening in the ethmoid air cells. There are chronic appearing changes along the upper right maxillary sinus. The globes and retrob ulbar structures are symmetric and unremarkable. Findings in the right occipital and temporal lobes consistent with the history of subacute ischemia and probable cortical mineralization. Encephalomalacia in the left cerebellar hemis phere is diffusely with a chronic infarct. Bilateral white matter disease. Left otitis media . Dictated and Signed by: Mehrdad Lakhani MD Electronically signed: 04/08/2020 4:09 PM Mri Brain Wo Contrast Result Date: 04/09/2020 TECHNIQUE: MRI of the brain with sequences to include sagittal T1, axial T1, axial diffusi on-weighted imaging and ADC maps, axial T2, axial T2 FLAIR, axial susceptibility weighted im aging. CLINICAL INFORMATION: Neuro deficit, acute, stroke suspected COMPARISON: CT dated 03/28 FINDINGS: Orbits have a normal appearance. Mild mucosal thickening at the ethmoid air cells. Left mastoid effusion and fluid in the middle ear. Trace right mastoid effusion. Lar ge area of restricted diffusion involving the distribution of the right posterior cerebral a rtery including the right occipital lobe, posterior medial right temporal lobe the posterior right corpus callosum, and posterior aspect of the right thalamus. Chronic bilateral basal ganglia lacunar infarctions. Multiple T2/flair hyperintense periventricular and subcortical white matter foci are noted without associated restricted diffusion. Focal susceptibility ar tifact at the basal ganglia, left greater than right, most compatible with punctate basal ga nglia mineralization. No suspicious susceptibility artifact in the area of acute infarction to suggest hemorrhagic conversion. Normal appearance of the ventricles and other CSF spaces. No midline shift. No intracranial hemorrhage or mass lesion. Right posterior cerebral artery distribution infarction involving the right occipital lobe, posterior medial right temporal lobe, posterior right corpus callosum, and posterior right thalamus. Nonspecific T2/FLAIR hyperintense periventricular and subcortical white matter fin dings likely reflect chronic microvascular changes. Chronic basal ganglia lacunar infarction s. Mastoid effusions, left greater than right. Dictated and Signed by: Barrett Hidalgo MD E lectronically signed: 04/09/2020 9:[address] Angiogram Head Neck Acute Stroke Result Date: 04/08/2020 EXAM: CT ANGIOGRAM HEAD NECK ACUTE STROKE dated 04/08/2020 5:55 PM HISTORY: Eval stroke wor k up COMPARISON: Noncontrast head CT performed the same day. TECHNIQUE: Post contrast imagi ng is performed through the head and neck vasculature following the arterial timed injection of 120 ml of Omnipaque 350. Images are reconstructed. DOSE: DLP 590.29 mGy per centimeter FINDINGS: HEAD CTA: Focal high-grade narrowing in the intracranial right vertebral artery. Focal moderate to severe narrowing in the intracranial left vertebral artery. There is a pa tent right posterior inferior cerebellar artery. There is a patent left anterior inferior c erebellar artery. Basilar artery is widely patent. Superior cerebellar arteries are patent bilaterally. The left posterior cerebral artery is diffusely diseased but patent. The rig ht posterior cerebral artery is patent for approximately 1 cm. It is then occluded. No def inite posterior communicating arteries. The intracranial internal carotid arteries are reveles nt bilaterally. There is diffuse disease through the cavernous portions with mostly mild na rrowing. There is a focal area of mild to moderate narrowing in the distal right cavernous internal carotid artery. The middle cerebral arteries are patent. The anterior cerebral ar teries are patent. There is diffuse mild disease in the right A1 segment. There is a paten t anterior communicating artery. NECK CTA: Aorta: No aneurysmal dilatation or dissection in the visible portion of the aortic arch. There is mild disease in mild narrowing in the prox imal brachiocephalic artery. There is mild disease in mild narrowing in the proximal right subclavian artery. The visible right axillary artery is patent. There is mild disease in n arrowing in the proximal several centimeters of the left subclavian artery. The visible lef t axillary artery is patent. Right: Mild disease in mild narrowing in the proximal, carotid artery. Mild disease in mild narrowing (less than 50% narrowing based on NASCET criteria) i n the internal carotid artery. The right vertebral artery is codominant. It is patent at i ts origin. It is patent throughout its extracranial extent. Left: Mild disease in the left common carotid artery. Mild disease in the internal carotid artery. No significant narrowi ng. The left vertebral artery is codominant. It is patent at its origin through its extrac ranial extent. NONVASCULAR: No abnormal parenchymal enhancement. No mass effect upon the ai rway. No cervical lymphadenopathy. No visible salivary gland mass. There is mild diffuse enlargement of the thyroid without definite focal thyroid disease. Emphysematous changes are present in the upper lungs bilaterally. Anterior cervical discectomy and fusion changes at C5, C6, and C7. Occlusion of the right posterior cerebral artery approximately 1 cm from its origin. High-g rade and moderate to high-grade narrowing in the intracranial right and left vertebral arter ies. No definite posterior communicating arteries. No significant atherosclerotic narrowing in the internal carotid arteries bilaterally. Dictated and Signed by: Mehrdad Lakhani MD E lectronically signed: 04/08/2020 6:30 PM Reference. This is NOT part of the patient's formal assessment section. In the assessment or plan section of notes the author may date some of the subsections with a number such as "" or "" to indicate the date of that entry or event. In the example below the 1st line is the original entry and the subsequent lines indicate flowing updates to the subsection: Example assessment subsection (such as CHF or CP or Pneumonia) Patient is improved today with resolution of symptoms Worse with recurrence of symptoms requiring further testing Portions of this chart may have been created with [employer] voice recognition software. Occasi onal wrong-word or sound-alike substitutions may have occurred due to the inherent phillips itations of voice recognition software. Please read the chart carefully and recognize, using context, where these substitutions have occurred erry, Kristopher finnegan MD - 04/09/2020 12:24 PM PDTFormatting of this note might be different from the origin [place], [place] HOSPITALIST PROGRESS NOTE Patient: Efren Pollack : 1965: Age: 55 y.o. MedRec: [id number] PCP: KORY Galarza Admission date: 04/08/2020 Hospital day # : 1 Physician author: Kristopher Rios MD Today: 04/09/2020 Assessment and Hospital Course Active Hospital Problems Diagnosis Ischemic cerebrovascular accident (CVA) Hypertension Tobacco abuse Resolved Hospital Problems No resolved problems to display. 55M PMhx HTN, Anxiety, Depression, presented with around 2-3 weeks of left sided weakness, mild expressive aphasia and left visual field deficits, progressively worsened, admitted for subacute ischemic CVA, no hemorrhagic conversion identified on scans during this admission. Plan #Acute Ischemic CVA MRI brain 04/09: Right posterior cerebral artery distribution: right occipital love, posteri or medial right tempral lobe, posterior right corpus callosm, posterior right thalamus. Like ly Subacute in nature. 04/08 CTA head/neck: Occlusion of right posterior cerebral artery Telestroke said to have been consulted but currently no note, will d/w telestroke with abov e finding. Dr. Reyes. Discussed case with him, agrees would not benefit from tpa at this luis e and to prevent further insults with aspirin/plavix/statin. Also recommended holter monitor Initial insult likely 03/19 and seen in [facility] in [place], was to follow up outp atient but has not yet prior to admission on 04/08. -Holter monitor as outpatient after discussion with tele stroke on 04/09 -f/u ECHO -Inpatient rehab consult, possibly can benefit starting on 04/10 -continue aspirin/plavix and high dose statin -smoking cessation, counseled -patient not in window for tpa on admission given history #HTN Continue clonidine, permissive HTN #Anxiety/Depression Clonazapem, Xanax, escitalopram #Tobacco use. Nicotine patch, cessation DVT PPx: lovenox GI PPx: protonix Diet: cardiac diet DIspo: may benefit from IPR, consult placed, if not qualify recommend home with home health within 1-2 days. Holter monitor on discharge Kristopher Rios MD 04/09/2020 12:24 PM Merged with [facility] Subjective CC Currently no complaints, neuro exam stable from previous, continued left visual defects, a tingling sensation in left fingertips. Cerebellar signs intact, no trouble swallowing, no fa cial droop, has full range of motion of left leg and arm. Worked with PT/OT in am. ROS See above Objective Exam General NAD, AOx3 Cardiac RRR, no murmurs rubs or gallups Extremities No edema Lung CTA bilaterally Abdominal Soft, NT, ND, NBS Neuro Addendum, Neuro exam previously from 04/09 note in error: addendum 544pm 04/10 Balance disturbance but cerebellar signs intact, 5/5 MS bilaterally, sluggish movement of l eft arm and leg noticeable but full range of motion, no facial assymmetry, no slurred speech . Noticeable left sided hemianopsia central vision both eyes is spared Serial weights: Filed Weights: 04/08/20 1517 Weight: 104.3 kg (230 lb) Most recent weight: Input and output 2 shifts and 3 shifts: Wt Readings from Last 1 Encounters: 04/08/20 104.3 kg (230 lb) I/O last 24 Hours: In: - Out: 350 [Urine:350] I/O last 3 completed shifts: In: - Out: 350 [Urine:350] Vitals Ranges: Temp: [35.6 C (96.1 F)-36.7 C (98.1 F)] 35.9 C (96.6 F) Pulse: [52-65] 52 Resp: [16-28] 16 BP: (103-136)/(66-87) 111/66 Vitals: Temp: 35.9 C (96.6 F) BP: 111/66 Pulse: 52 Resp: 16 SpO2: 98 % SpO2 98 % on nasal cannula at flow rate 3L/min Diet and Supplements Diet Diet fat and cholesterol modified; Effective Now Number of Occurrences: Until Specified Order Questions: Type Diet fat and cholesterol modified Objective Data Allergies: No Known Allergies Current Medications: Current Facility-Administered Medications Medication Dose Route Frequency Provider Last Rate Last Dose acetaminophen (TYLENOL) 160 mg/5 mL liquid 650 mg 650 mg Per NG tube Q4H PRN Loraine conti MD Or acetaminophen (TYLENOL) tablet 650 mg 650 mg Oral Q4H PRN Loraine Mccallum MD 650 mg at 04/09/20 0801 Or acetaminophen (TYLENOL) suppository 650 mg 650 mg Rectal Q4H PRN Loraine Mccallum MD ALPRAZolam (XANAX) tablet 0.5 mg 0.5 mg Oral TID PRN Loraine Mccallum MD 0.5 mg at 0 04/08/202256 aspirin EC tablet 81 mg 81 mg Oral Daily Loraine Mccallum MD 81 mg at 04/09/20 0859 atorvaSTATin (LIPITOR) tablet 80 mg 80 mg Oral Nightly Loraine Mccallum MD 80 mg at 04/08/20 230 busPIRone (BUSPAR) tablet 15 mg 15 mg Oral BID Loraine Mccallum MD 15 mg at 04/09/20 0859 clonazePAM (klonoPIN) tablet 1 mg 1 mg Oral Nightly PRN Loraine Mccallum MD cloNIDine (CATAPRES) tablet 0.2 mg 0.2 mg Oral BID Loraine Mccallum MD 0.2 mg at 11/16 2258 clopidogrel (PLAVIX) tablet 75 mg 75 mg Oral Daily Loraine Mccallum MD 75 mg at 03/28 02/14 0859 docusate sodium (COLACE) capsule 100 mg 100 mg Oral BID PRN Loraine Mccallum MD escitalopram (LEXAPRO) tablet 30 mg 30 mg Oral Daily Loraine Mccallum MD 30 mg at 0859 nicotine (NICODERM) 14 mg/24 hr 1 patch 1 patch Transdermal Daily Loraine Mccallum MD 1 patch at 04/09/20 0852 ondansetron (ZOFRAN) injection 4 mg 4 mg Intravenous Q6H PRN Loraine Mccallum MD polyethylene glycol (MIRALAX) powder 17 g 17 g Oral Daily PRN Loraine Mccallum MD prazosin (MINIPRESS) capsule 5 mg 5 mg Oral Nightly Loraine Mccallum MD 5 mg at 03/28 01/17 2303 Current Infusions: Hematology and anemia Recent Labs Lab 04/09/20 0446 04/08/20 1528 WBC 6.8 6.9 HGB 14.7 14.8 HCT 42.1 42.1 PLT 250 253 NEUPCT 53.7 50.0 Recent Labs Lab 04/09/20 0447 04/08/20 1528 PROTIME 12.8 13.4 INR 0.9 1.0 No results for input(s): IRON, TIBC, PCTSAT, FERRITIN, TSH, [id number], FOLATE in the last 168 hours. Inflammatory markers No results for input(s): LACTATE, PROCALCITONI, CRP, ESR in the last 168 hours. Chemistry Recent Labs Lab 04/09/20 0447 04/08/20 1528 GLU 106 82 NA 140 139 K 3.7 3.9 CL 109* 106 CO2 27 30 ANIONGAP 4 3 BUN 11 13 CREA 0.78 0.85 GFRNONAA >60 >60 CALCIUM 9.4 9.8 Recent Labs Lab 04/09/20 0447 MG 1.9 No results for input(s): AMYLASE, LIPASE in the last 168 hours. Recent Labs Lab 04/09/20 0447 TRIG 152* CHOL 149 HDL 28* LDL 91 No results for input(s): AMMONIA in the last 168 hours. Cardiology & Digoxin No results for input(s): TROPONIN, CK, CKMB, BNP, DIGOXIN in the last 168 hours. Invalid input(s): CKTOTAL ABG No results for input(s): PHART, PO2ART, OHM0JRA, FJF5TJG, BEART, [id number] in the last 168 h ours. No results for input(s): SPECSOURCE, PHPOCB, PCO2, PO2, HCO3, TCO2, BEART, PKDQ4IMP in the last 168 hours. Drug of overdose and abuse No results for input(s): ALCOHOL, ACTMN, SALICYLATE in the last 168 hours. No results for input(s): AMPHEQUAL, BARBITURATE, BENZSCR, CANNIBSCR, AMPHETAMINE, METHADSCR , OPIATESCR in the last 168 hours. Urinalysis No results for input(s): GLUCOSEU, WBCUA, RBCUA, SQUAMEPIUA, BACTERIAUA, CULTIF in the last 168 hours. Point of care glucose Recent Labs Lab 04/09/20 1158 04/09/20 0643 POCGLU 138* 92 Micro results more choices using dot micro (below is last 7 days) Microbiology Results (Last 7) Date with Culture/Sensitivity) No results found for the last 168 hours. Radiology results (more choices using dot risresults) Ct Head Wo Contrast Result Date: 04/08/2020 EXAM: CT HEAD WO CONTRAST dated 04/08/2020 3:27 PM HISTORY: Emergent Patient - see comments Pain Comparison: None. TECHNIQUE: Noncontrast CT is performed from the top of calvarium thr ough the skull base. Coronal and sagittal reformats are performed. DOSE: DLP 735.38 mGy-cm FINDINGS: BRAIN: No significant cerebral or cerebellar atrophy. There is some subtle gyral hyperintensity in portions of the right occipital lobe and medial temporal lobe. There is a prominent area of hypoattenuation in some loss of shah-white differentiation throughout th is same region. There is no associated mass effect. There are areas of hypoattenuation in the periventricular white matter of both frontal lobes. There is a focal area of hypodensit y in the left cerebellar hemisphere that may be encephalomalacia. There is appropriate size and configuration of the ventricles. Bilateral basal ganglia mineralization. Calcified dis ease in the cavernous carotids and posterior circulation. SCALP/ CALVARIUM: The scalp and sk ull are intact and are unremarkable. SINUSES / ORBITS/ MASTOIDS: There is a small amount of opacification in the inferior right mastoid air cells. There is diffuse opacification throu ghout the left middle ear. There is mild mucosal thickening in the ethmoid air cells. There are chronic appearing changes along the upper right maxillary sinus. The globes and retrob ulbar structures are symmetric and unremarkable. Findings in the right occipital and temporal lobes consistent with the history of subacute ischemia and probable cortical mineralization. Encephalomalacia in the left cerebellar hemis phere is diffusely with a chronic infarct. Bilateral white matter disease. Left otitis media . Dictated and Signed by: Mehrdad Lakhani MD Electronically signed: 04/08/2020 4:09 PM Mri Brain Wo Contrast Result Date: 04/09/2020 TECHNIQUE: MRI of the brain with sequences to include sagittal T1, axial T1, axial diffusi on-weighted imaging and ADC maps, axial T2, axial T2 FLAIR, axial susceptibility weighted im aging. CLINICAL INFORMATION: Neuro deficit, acute, stroke suspected COMPARISON: CT dated 03/28 FINDINGS: Orbits have a normal appearance. Mild mucosal thickening at the ethmoid air cells. Left mastoid effusion and fluid in the middle ear. Trace right mastoid effusion. Lar ge area of restricted diffusion involving the distribution of the right posterior cerebral a rtery including the right occipital lobe, posterior medial right temporal lobe the posterior right corpus callosum, and posterior aspect of the right thalamus. Chronic bilateral basal ganglia lacunar infarctions. Multiple T2/flair hyperintense periventricular and subcortical white matter foci are noted without associated restricted diffusion. Focal susceptibility ar tifact at the basal ganglia, left greater than right, most compatible with punctate basal ga nglia mineralization. No suspicious susceptibility artifact in the area of acute infarction to suggest hemorrhagic conversion. Normal appearance of the ventricles and other CSF spaces. No midline shift. No intracranial hemorrhage or mass lesion. Right posterior cerebral artery distribution infarction involving the right occipital lobe, posterior medial right temporal lobe, posterior right corpus callosum, and posterior right thalamus. Nonspecific T2/FLAIR hyperintense periventricular and subcortical white matter fin dings likely reflect chronic microvascular changes. Chronic basal ganglia lacunar infarction s. Mastoid effusions, left greater than right. Dictated and Signed by: Barrett Hidalgo MD E lectronically signed: 04/09/2020 9:[address] Angiogram Head Neck Acute Stroke Result Date: 04/08/2020 EXAM: CT ANGIOGRAM HEAD NECK ACUTE STROKE dated 04/08/2020 5:55 PM HISTORY: Eval stroke wor k up COMPARISON: Noncontrast head CT performed the same day. TECHNIQUE: Post contrast imagi ng is performed through the head and neck vasculature following the arterial timed injection of 120 ml of Omnipaque 350. Images are reconstructed. DOSE: DLP 590.29 mGy per centimeter FINDINGS: HEAD CTA: Focal high-grade narrowing in the intracranial right vertebral artery. Focal moderate to severe narrowing in the intracranial left vertebral artery. There is a pa tent right posterior inferior cerebellar artery. There is a patent left anterior inferior c erebellar artery. Basilar artery is widely patent. Superior cerebellar arteries are patent bilaterally. The left posterior cerebral artery is diffusely diseased but patent. The rig ht posterior cerebral artery is patent for approximately 1 cm. It is then occluded. No def inite posterior communicating arteries. The intracranial internal carotid arteries are reveles nt bilaterally. There is diffuse disease through the cavernous portions with mostly mild na rrowing. There is a focal area of mild to moderate narrowing in the distal right cavernous internal carotid artery. The middle cerebral arteries are patent. The anterior cerebral ar teries are patent. There is diffuse mild disease in the right A1 segment. There is a paten t anterior communicating artery. NECK CTA: Aorta: No aneurysmal dilatation or dissection in the visible portion of the aortic arch. There is mild disease in mild narrowing in the prox imal brachiocephalic artery. There is mild disease in mild narrowing in the proximal right subclavian artery. The visible right axillary artery is patent. There is mild disease in n arrowing in the proximal several centimeters of the left subclavian artery. The visible lef t axillary artery is patent. Right: Mild disease in mild narrowing in the proximal, carotid artery. Mild disease in mild narrowing (less than 50% narrowing based on NASCET criteria) i n the internal carotid artery. The right vertebral artery is codominant. It is patent at i ts origin. It is patent throughout its extracranial extent. Left: Mild disease in the left common carotid artery. Mild disease in the internal carotid artery. No significant narrowi ng. The left vertebral artery is codominant. It is patent at its origin through its extrac ranial extent. NONVASCULAR: No abnormal parenchymal enhancement. No mass effect upon the ai rway. No cervical lymphadenopathy. No visible salivary gland mass. There is mild diffuse enlargement of the thyroid without definite focal thyroid disease. Emphysematous changes are present in the upper lungs bilaterally. Anterior cervical discectomy and fusion changes at C5, C6, and C7. Occlusion of the right posterior cerebral artery approximately 1 cm from its origin. High-g rade and moderate to high-grade narrowing in the intracranial right and left vertebral arter ies. No definite posterior communicating arteries. No significant atherosclerotic narrowing in the internal carotid arteries bilaterally. Dictated and Signed by: Mehrdad Lakhani MD E lectronically signed: 04/08/2020 6:30 PM Reference. This is NOT part of the patient's formal assessment section. In the assessment or plan section of notes the author may date some of the subsections with a number such as "23" or "23" to indicate the date of that entry or event. In the example below the 1st line is the original entry and the subsequent lines indicate flowing updates to the subsection: Example assessment subsection (such as CHF or CP or Pneumonia) Patient is improved today with resolution of symptoms 24th Worse with recurrence of symptoms requiring further testing Portions of this chart may have been created with [employer] voice recognition software. Occasi onal wrong-word or sound-alike substitutions may have occurred due to the inherent phillips itations of voice recognition software. Please read the chart carefully and recognize, using context, where these substitutions have occurred Marcy Neri Chaplain - 04/08/2020 3:19 PM PDT Spiritual Care Efren Pollack is a 55 y.o. male who is admitted for No admission diagnoses are document ed for this encounter.. 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 Person(s) Visited, Contact Information: Patient spouse is Susie Pollack [phone]. 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 Communication Guidance Interventions: Per Susie Efren was seen on 03/13 for possible TIA, MRI at [facility] revealed infarc t and small bleed. Susie provided a medication list, insurance and ID information. Outcomes: Medication list was taken to patient room, ID and Insurance card scanned and returned. Travis matiasra appreciation contact with patient advocate and information. Plan / Follow-up: Chaplains will continue to provide communication assistance and emotional / spiritual suppo rt. documented in this encounter H&P Notes Loraine Mccallum MD - 04/08/2020 5:24 PM PDTFormatting of this note might be different fr om the original. [place], [place] HOSPITALIST HISTORY & PHYSICAL Patient: Efren Pollack : 1965: Age: 55 y.o. MedRec: [id number] Admission date: 04/08/2020 Hospital day # : 0 Physician author: Loraine Mccallum MD Today: 04/08/2020 CHIEF COMPLAINT: Left-sided weakness, mild expressive aphasia HISTORY OF PRESENT ILLNESS: This is a 55 y.o. male with a history of hypertension, anxiety, depression who presents wit h left-sided weakness, mild expressive aphasia and vision deficit with recent concern for ac deloris CVA with concern for progression of event versus new ischemic event. Spoke with patient and who reports initially presenting to [facility] on 03/19/2020 with new onset left-sided weakness, numbness and a syncopal episode. Patient additionally endorsed left-sided vision deficit. While in the emergency department had a CT head performed with f indings with bilateral white matter changes with concerns for possible demyelinating process and recommended nonemergent brain MRI. The reports that they were concerned there is a possible urinary tract infection but no additional medications were given. 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 As per the , felt weakness worsened on left side. Patient was using walker at home with poor coordination. Patient h ad increased bifrontal headache and prevented to the emergency department at [facility] again . Sent to [facility] for MRI evaluation. Patient and spouse were unable to get outpatient neurology appointment. While in the emergency department a CT scan was performed with right occipital and temporal lobes consistent with subacute ischemia and probable cortical mineralization. Encephalomal acia in the left cerebellar hemisphere is diffusely with a chronic infarct. Patient does have a longstanding smoking history currently smoking 4 cigarettes/day. PAST MEDICAL and SURGICAL HISTORY: Past Medical History: Diagnosis Date Hypertension FAMILY HISTORY: No pertinent family history SOCIAL HISTORY: reports that he has been smoking cigarettes. He has never used smokeless tobacco. He repor ts previous alcohol use. He reports current drug use. Drug: Marijuana. REVIEW OF SYSTEMS: Review of Systems Constitutional: Negative. HENT: Negative. Eyes: Negative. Respiratory: Negative. Cardiovascular: Negative. Gastrointestinal: Negative. Genitourinary: Negative. Musculoskeletal: Negative. Skin: Negative. Neurological: Positive for sensory change, speech change and weakness. Endo/Heme/Allergies: Negative. Psychiatric/Behavioral: Negative. HOME MEDICATIONS: PT REPORTED TAKING NOT TAKING Medication Sig Last Dose Dispense Doc. Provider acetaminophen (TYLENOL) 325 mg tablet Take 650 mg by mouth every 4 hours as needed for Lisandra n. Historical Provider, ALPRAZolam (XANAX) 0.5 mg tablet Take 0.5 mg by mouth 3 times daily as needed for Anxiety. Historical Provider, busPIRone (BUSPAR) 15 mg tablet Take 15 mg by mouth 2 times daily. Historical Provider, clonazePAM (KLONOPIN) 1 mg tablet Take 1 mg by mouth nightly as needed for Anxiety. Hist orical Provider, cloNIDine (CATAPRES) 0.2 MG tablet Take 0.2 mg by mouth 2 times daily. Historical Provid erMD escitalopram (LEXAPRO) 10 mg tablet Take 30 mg by mouth Daily. Historical Provider, hydrOXYzine (ATARAX) 50 MG tablet Take 100 mg by mouth 3 times daily as needed for Itching . Historical Provider, melatonin 1 mg TABS Take 10 mg by mouth nightly as needed. Historical Provider, prazosin (MINIPRESS) 5 mg capsule Take 5 mg by mouth nightly. Historical Provider, ALLERGIES: No Known Allergies VITAL SIGNS: Temp: 36.3 C (97.4 F), Pulse: 53, Resp: 28, BP: 118/87, SpO2 94 % on room air at flow r ate L/min Temp Min: 36.3 C (97.4 F) Max: 36.3 C (97.4 F) Weight: 104.3 kg (230 lb) PHYSICAL EXAMINATION: Constitutional Answering questions Eye No conjunctivitis nor scleral icterus ENT Unremarkable oral ear and nose Neck No adenopathy, thyromegaly nor masses Lymph node exam Negative in the following areas: neck and epitrochlear Cardiac S1, S2 present, no murmurs Lung CTA throughout Abdomen + BS, Soft, NT, no HSM nor masses Extremities No b/l LE edema Psych Mood and affect normal Neuro + Pronator drift, left lower quadrant, left eye field deficit, poor coordination with finge r-to-nose on the left upper extremity. 5/5 strength on upper and lower extremities. Mild e xpressive aphasia. CN otherwise intact. DIAGNOSTIC STUDIES: Lab results last 24 hours Recent Results (from the past 24 hour(s)) CBC w/ Auto Differential Collection Time: 04/08/20 3:28 PM Result Value Ref Range WBC 6.9 4.0 - 11.0 K/uL RBC 4.32 4.30 - 5.70 M/uL Hemoglobin 14.8 13.5 - 18.0 g/dL Hematocrit 42.1 40.0 - 51.0 % MCV 97.5 83.0 - 101.0 fL MCH 34.3 28.0 - 35.0 pg MCHC 35.2 32.0 - 36.0 g/dL RDW-CV 11.7 <15.0 % RDW-SD 42.4 35.1 - 46.3 fL Platelet Count 253 140 - 440 K/uL MPV 9.1 6.5 - 12.4 fL % Neutrophils 50.0 45.0 - 82.0 % % Lymphocytes 36.6 20.0 - 45.0 % % Monocytes 9.5 4.0 - 12.0 % % Eosinophils 3.2 0.0 - 5.0 % % Basophils 0.6 0.0 - 1.0 % % Immature Granulocytes 0.1 0.0 - 0.4 % Absolute Neutrophils 3.47 1.80 - 8.50 K/uL Absolute Lymphocytes 2.54 0.60 - 3.20 K/uL Absolute Monocytes 0.66 0.00 - 1.00 K/uL Absolute Eosinophils 0.22 0.00 - 0.40 K/uL Absolute Basophils 0.04 0.00 - 0.10 K/uL Absolute Immature Granulocytes 0.01 0.00 - 0.03 K/uL % nRBC 0 0 - 2 per 100 WBCs Absolute nRBC 0.00 0.00 - 0.01 K/uL Basic Metabolic Panel Collection Time: 04/08/20 3:28 PM Result Value Ref Range Na 139 136 - 145 mmol/L K 3.9 3.4 - 5.1 mmol/L Cl 106 98 - 107 mmol/L CO2 30 20 - 31 mmol/L Anion Gap 3 3 - 16 mmol/L Glucose 82 60 - 106 mg/dL BUN 13 9 - 23 mg/dL Creatinine 0.85 0.70 - 1.30 mg/dL eGFR if not >60 >=60 mL/min/1.73m2 Calcium 9.8 8.7 - 10.4 mg/dL BUN/Creatinine Ratio 15.3 Protime INR Collection Time: 04/08/20 3:28 PM Result Value Ref Range Prothrombin Time 13.4 11.3 - 13.9 seconds INR 1.0 0.9 - 1.1 Extra Lavender Top Tube Collection Time: 04/08/20 3:28 PM Result Value Ref Range Extra Lavender Top Tube Done Extra Green Top Tube Collection Time: 04/08/20 3:28 PM Result Value Ref Range Extra Green Top Tube Done ECG 12 lead Collection Time: 04/08/20 3:40 PM Result Value Ref Range INTERPRETATION TEXT Not Confirmed Micro results Microbiology Results (72 hrs) No results found for the last [address] Head Wo Contrast Result Date: 04/08/2020 EXAM: CT HEAD WO CONTRAST dated 04/08/2020 3:27 PM HISTORY: Emergent Patient - see comments Pain Comparison: None. TECHNIQUE: Noncontrast CT is performed from the top of calvarium thr ough the skull base. Coronal and sagittal reformats are performed. DOSE: DLP 735.38 mGy-cm FINDINGS: BRAIN: No significant cerebral or cerebellar atrophy. There is some subtle gyral hyperintensity in portions of the right occipital lobe and medial temporal lobe. There is a prominent area of hypoattenuation in some loss of shah-white differentiation throughout th is same region. There is no associated mass effect. There are areas of hypoattenuation in the periventricular white matter of both frontal lobes. There is a focal area of hypodensit y in the left cerebellar hemisphere that may be encephalomalacia. There is appropriate size and configuration of the ventricles. Bilateral basal ganglia mineralization. Calcified dis ease in the cavernous carotids and posterior circulation. SCALP/ CALVARIUM: The scalp and sk ull are intact and are unremarkable. SINUSES / ORBITS/ MASTOIDS: There is a small amount of opacification in the inferior right mastoid air cells. There is diffuse opacification throu ghout the left middle ear. There is mild mucosal thickening in the ethmoid air cells. There are chronic appearing changes along the upper right maxillary sinus. The globes and retrob ulbar structures are symmetric and unremarkable. Findings in the right occipital and temporal lobes consistent with the history of subacute ischemia and probable cortical mineralization. Encephalomalacia in the left cerebellar hemis phere is diffusely with a chronic infarct. Bilateral white matter disease. Left otitis media . Dictated and Signed by: Mehrdad Lakhani MD Electronically signed: 04/08/2020 4:09 PM I reviewed imaging EKG Results (I reviewed EKG) I reviewed and summarized old records ASSESSMENT: Principal Problem: Acute ischemic CVA versus progression of CVA Code Status Full Medical Decision Maker Self DVT Prophylaxis SCDs PLAN: Acute ischemic CVA vs progression of prior hemorrhagic CVA (possibly 2/2 to hemorrhagic con version from earlier CVA) Patient initially presented with onset of symptoms on 03/19. Initial CT scan with? Multipl e sclerosis findings. 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 Patient is a current smoker. reports concern for progression of symptoms. CT head showed right occipital and temporal lobes cons istent with history of subacute ischemia and probable cortical mineralization. 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 High-g rade and moderate to high-grade narrowing in the intracranial right and left vertebral arteries. Started asa and plavix. 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 Electronically signed by: Loraine Mccallum MD 04/08/2020 5:25 PM [facility] documented in this e ncounter Consult Notes Wiliam Vanegas MD - 04/10/2020 4:41 PM PDTFormatting of this note might be diff erent from the original. INPATIENT REHABILITATION MEDICINE PRESCREEN Patient Identification Efren Pollack is a 55 y.o. male. : 1965 Admit Date: 04/08/2020 Attending Provider: Gabby tyson. providers found Primary Care Physician: KORY Galarza Admitting Diagnosis: Cerebrovascular accident (CVA), unspecified mechanism (HCC) [I63.9] Chief Complaint/Identification: Efren Pollack is a 55 y.o. male who was admitted to [facility] on 04/08/2020 for Cerebrovascular accident (CVA), unspecified mechanism (HCC) [I63.9]. PM&R consultation was requested by Dr. Gabby tyson. providers found to provide an opinion regarding Efren Burnham en rehabilitation needs. History of Present Illness: This is a 55 y.o. male with a history of hypertension, anxiety, depression who presents wit h left-sided weakness, mild expressive aphasia and vision deficit with recent concern for ac deloris CVA with concern for progression of event versus new ischemic event. Spoke with patient and who reports initially presenting to [facility] on 03/19/2020 with new onset left-sided weakness, numbness and a syncopal episode. Patient additionally endorsed left-sided vision deficit. While in the emergency department had a CT head performed with f indings with bilateral white matter changes with concerns for possible demyelinating process and recommended nonemergent brain MRI. The reports that they were concerned there is a possible urinary tract infection but no additional medications were given. 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 As per the , felt weakness worsened on left side. Patient was using walker at home with poor coordination. Patient h ad increased bifrontal headache and prevented to the emergency department at [facility] again . Sent to [facility] for MRI evaluation. Patient and spouse were unable to get outpatient neurology appointment. While in the emergency department a CT scan was performed with right occipital and temporal lobes consistent with subacute ischemia and probable cortical mineralization. Encephalomal acia in the left cerebellar hemisphere is diffusely with a chronic infarct. Patient does have a longstanding smoking history currently smoking 4 cigarettes/day. Dr. Rios set him up with nicotine patches and warmed him not to smoke again. He has done well in all therapies and thus is to be admitted to [facility] with the goal of home w ith his , after we got approval from the [place] to admit him. PMHx: (per chart review confirmed with pt) Past Medical History: Diagnosis Date Hypertension PSx: No past surgical history on file. Meds During Hospitalization Current Facility-Administered Medications Medication Dose Route Frequency Provider Last Rate Last Dose acetaminophen (TYLENOL) 160 mg/5 mL liquid 650 mg 650 mg Per NG tube Q4H PRN Loraine conti MD Or acetaminophen (TYLENOL) tablet 650 mg 650 mg Oral Q4H PRN Loranie Mccallum MD 650 mg at 04/09/20 1716 Or acetaminophen (TYLENOL) suppository 650 mg 650 mg Rectal Q4H PRN Loraine Mccallum MD ALPRAZolam (XANAX) tablet 0.5 mg 0.5 mg Oral TID PRN Loraine Mccallum MD 0.5 mg at 0 04/08/202256 aspirin EC tablet 81 mg 81 mg Oral Daily Loraine Mccallum MD 81 mg at 04/10/20918 atorvaSTATin (LIPITOR) tablet 80 mg 80 mg Oral Nightly Loraine Mccallum MD 80 mg at 04/09/202012 busPIRone (BUSPAR) tablet 15 mg 15 mg Oral BID Loraine Mccallum MD 15 mg at 04/10/20 09 clonazePAM (klonoPIN) tablet 1 mg 1 mg Oral Nightly PRN Loraine Mccallum MD 1 mg at 04/09/202012 cloNIDine (CATAPRES) tablet 0.2 mg 0.2 mg Oral BID Loraine Mccallum MD 0.2 mg at 918 clopidogrel (PLAVIX) tablet 75 mg 75 mg Oral Daily Loraine Mccallum MD 75 mg at 03/28 docusate sodium (COLACE) capsule 100 mg 100 mg Oral BID PRN Loraine Mccallum MD enoxaparin (LOVENOX) 40 mg/0.4 mL injection 40 mg 40 mg Subcutaneous Daily Kristopher Rios MD 40 mg at 04/10/20919 escitalopram (LEXAPRO) tablet 30 mg 30 mg Oral Daily Loraine Mccallum MD 30 mg at 918 nicotine (NICODERM) 14 mg/24 hr 1 patch 1 patch Transdermal Daily Loraine Mccallum MD 1 patch at 04/10/20920 ondansetron (ZOFRAN) injection 4 mg 4 mg Intravenous Q6H PRN Loraine Mccallum MD pantoprazole (PROTONIX) DR tablet 40 mg 40 mg Oral QAM AC Kristopher Rios MD 40 mg at 04/10/20 06 polyethylene glycol (MIRALAX) powder 17 g 17 g Oral Daily PRN Loraine Mccallum MD prazosin (MINIPRESS) capsule 5 mg 5 mg Oral Nightly Loraine Mccallum MD 5 mg at 03/28 Allergies: Allergies No active allergies Intolerance No active intolerances/contraindications Family History: No family history on file. Social History: per chart review and confirmed with pt Social History Socioeconomic History Marital status: Spouse name: Not on file Number of children: Not on file Years of education: Not on file Highest education level: Not on file Occupational History Not on file Social Needs Financial resource strain: Not on file Food insecurity: Worry: Not on file Inability: Not on file Transportation needs: Medical: Not on file Non-medical: Not on file Tobacco Use Smoking status: Current Every Day Smoker Types: Cigarettes Smokeless tobacco: Never Used Substance and Sexual Activity Alcohol use: Not Currently Drug use: Yes Types: Marijuana Sexual activity: Not on file Lifestyle Physical activity: Days per week: Not on file Minutes per session: Not on file Stress: Not on file Relationships Social connections: Talks on phone: Not on file Gets together: Not on file Attends voodoo service: Not on file Active member of club or organization: Not on file Attends meetings of clubs or organizations: Not on file Relationship status: Not on file Intimate partner violence: Fear of current or ex partner: Not on file Emotionally abused: Not on file Physically abused: Not on file Forced sexual activity: Not on file Other Topics Concern Not on file Social History Narrative Not on file Lives with spouse in a 1 story home with 1 stairs to enter. Bedroom and shower on 1st floor . Functional History: PRIOR FUNCTION: Patient was independent in mobility, self-care, swallowing, bladder/bowel, communication, and cognition. CURRENT FUNCTION: Report Date 04/10/2020 [facility] Bed Transfer Score: 4 [facility] Toilet Transfer Score: [facility] Tub/Shower Transfer Score: [facility] Walk Score: 2 [facility] Distance Walked(feet): 20 [facility] Dressing Lower Body Score: 4 [facility] Toileting Score: 4 Labs: Recent Results (from the past 48 hour(s)) CBC with Differential Collection Time: 04/09/20 4:46 AM Result Value Ref Range WBC 6.8 4.0 - 11.0 K/uL RBC 4.33 4.30 - 5.70 M/uL Hemoglobin 14.7 13.5 - 18.0 g/dL Hematocrit 42.1 40.0 - 51.0 % MCV 97.2 83.0 - 101.0 fL MCH 33.9 28.0 - 35.0 pg MCHC 34.9 32.0 - 36.0 g/dL RDW-CV 11.4 <15.0 % RDW-SD 41.4 35.1 - 46.3 fL Platelet Count 250 140 - 440 K/uL MPV 9.4 6.5 - 12.4 fL % Neutrophils 53.7 45.0 - 82.0 % % Lymphocytes 34.0 20.0 - 45.0 % % Monocytes 8.7 4.0 - 12.0 % % Eosinophils 2.9 0.0 - 5.0 % % Basophils 0.6 0.0 - 1.0 % % Immature Granulocytes 0.1 0.0 - 0.4 % Absolute Neutrophils 3.65 1.80 - 8.50 K/uL Absolute Lymphocytes 2.31 0.60 - 3.20 K/uL Absolute Monocytes 0.59 0.00 - 1.00 K/uL Absolute Eosinophils 0.20 0.00 - 0.40 K/uL Absolute Basophils 0.04 0.00 - 0.10 K/uL Absolute Immature Granulocytes 0.01 0.00 - 0.03 K/uL % nRBC 0 0 - 2 per 100 WBCs Absolute nRBC 0.00 0.00 - 0.01 K/uL Hemoglobin A1C Collection Time: 04/09/20 4:46 AM Result Value Ref Range Hemoglobin A1c 5.5 4.3 - 6.0 % Estimated Average Glucose 111 mg/dL Basic Metabolic Panel Collection Time: 04/09/20 4:47 AM Result Value Ref Range Na 140 136 - 145 mmol/L K 3.7 3.4 - 5.1 mmol/L Cl 109 (H) 98 - 107 mmol/L CO2 27 20 - 31 mmol/L Anion Gap 4 3 - 16 mmol/L Glucose 106 60 - 106 mg/dL BUN 11 9 - 23 mg/dL Creatinine 0.78 0.70 - 1.30 mg/dL eGFR if not >60 >=60 mL/min/1.73m2 Calcium 9.4 8.7 - 10.4 mg/dL BUN/Creatinine Ratio 14.1 Magnesium Collection Time: 04/09/20 4:47 AM Result Value Ref Range Magnesium 1.9 1.6 - 2.6 mg/dL Protime INR Collection Time: 04/09/20 4:47 AM Result Value Ref Range Prothrombin Time 12.8 11.3 - 13.9 seconds INR 0.9 0.9 - 1.1 Lipid Panel Collection Time: 04/09/20 4:47 AM Result Value Ref Range Triglycerides 152 (H) <=150 mg/dL Cholesterol 149 <=200 mg/dL HDL 28 (L) 40 - 60 mg/dL Chol/HDL Ratio 5.3 LDL, Calculated 91 <=130 mg/dL POC Glucose Collection Time: 04/09/20 6:43 AM Result Value Ref Range Glucose, POC 92 70 - 109 mg/dL POC Glucose Collection Time: 04/09/20 11:58 AM Result Value Ref Range Glucose, POC 138 (H) 70 - 109 mg/dL ECHO Complete Collection Time: 04/09/20 2:49 PM Result Value Ref Range Inferior Vena Cava Diameter at Expiration 1.72 cm LVIDd 3.81 cm FS 20 % LA volume 60.83 mL Aortic arch 3.57 cm MV Area by P 1/2 method 3.61 cm2 LVOT diameter 2.25 cm LVOT peak travis 90.93 cm/s AV peak travis 113 cm/s AV peak gradient 5.11 mmHg MV Pressure 1/2 time 60.94 msec LA Volume Index 28 mL/m2 AV LVOT Peak Gradient 3.31 mmHg TR Peak Gradient 25 mmHg RV Free Wall Peak S' 14 cm/s TR Velocity 249.33 cm/s RV Diastolic Basal Diameter 3.56 cm LV Mckenna's Biplane EF 65 % MV E' Lateral Velocity 12.91 cm/s MV E' Septal Velocity 11.34 cm/s MV Deceleration [place] 282.7 cm/s2 MV Deceleration Time 210.15 msec MV E/A Ratio 0.98 MV Peak A-Wave 68.44 cm/s MV Peak E-Wave 66.98 cm/s RA Area 18 cm2 LA/Aorta Ratio 1.04 LA Area 18.92 cm2 LA Systolic Pressure 8.49 mmHg MV E/E SEPTAL 5.91 MV E/E LATERAL 5.19 Vitals Heart Rate Rest 58 Vitals BP Systolic 111 Vitals BP Diastolic 66 Vitals Height 175.3 Vitals Weight 104.30 Vitals BSA 2.19 Vitals BMI 33.97 Aortic Root Diameter 3.5 cm IVS Diastolic Thickness MM 0.9 cm LVPW Diastolic Thickness MM 1.12 cm IVS Systolic Thickness MM 0.94 cm LV Systolic Diameter MM 3.03 cm LVPW Systolic Thickness MM 0.99 cm LA Systolic Diameter MM 3.63 cm TAPSE 2.2 cm LVEF-TTE TRANSTHORACIC ECHO 65 POC Glucose Collection Time: 04/09/20 4:33 PM Result Value Ref Range Glucose, POC 100 70 - 109 mg/dL POC Glucose Collection Time: 04/09/20 8:31 PM Result Value Ref Range Glucose, POC 104 70 - 109 mg/dL CBC with Differential Collection Time: 04/10/20 4:58 AM Result Value Ref Range WBC 6.8 4.0 - 11.0 K/uL RBC 4.40 4.30 - 5.70 M/uL Hemoglobin 14.9 13.5 - 18.0 g/dL Hematocrit 43.3 40.0 - 51.0 % MCV 98.4 83.0 - 101.0 fL MCH 33.9 28.0 - 35.0 pg MCHC 34.4 32.0 - 36.0 g/dL RDW-CV 11.4 <15.0 % RDW-SD 41.6 35.1 - 46.3 fL Platelet Count 239 140 - 440 K/uL MPV 9.4 6.5 - 12.4 fL % Neutrophils 52.3 45.0 - 82.0 % % Lymphocytes 34.7 20.0 - 45.0 % % Monocytes 9.2 4.0 - 12.0 % % Eosinophils 3.3 0.0 - 5.0 % % Basophils 0.4 0.0 - 1.0 % % Immature Granulocytes 0.1 0.0 - 0.4 % Absolute Neutrophils 3.53 1.80 - 8.50 K/uL Absolute Lymphocytes 2.34 0.60 - 3.20 K/uL Absolute Monocytes 0.62 0.00 - 1.00 K/uL Absolute Eosinophils 0.22 0.00 - 0.40 K/uL Absolute Basophils 0.03 0.00 - 0.10 K/uL Absolute Immature Granulocytes 0.01 0.00 - 0.03 K/uL % nRBC 0 0 - 2 per 100 WBCs Absolute nRBC 0.00 0.00 - 0.01 K/uL Basic Metabolic Panel Collection Time: 04/10/20 4:58 AM Result Value Ref Range Na 140 136 - 145 mmol/L K 4.0 3.4 - 5.1 mmol/L Cl 111 (H) 98 - 107 mmol/L CO2 26 20 - 31 mmol/L Anion Gap 3 3 - 16 mmol/L Glucose 92 60 - 106 mg/dL BUN 11 9 - 23 mg/dL Creatinine 0.78 0.70 - 1.30 mg/dL eGFR if not >60 >=60 mL/min/1.73m2 Calcium 9.3 8.7 - 10.4 mg/dL BUN/Creatinine Ratio 14.1 Magnesium Collection Time: 04/10/20 4:58 AM Result Value Ref Range Magnesium 1.8 1.6 - 2.6 mg/dL POC Glucose Collection Time: 04/10/20 6:35 AM Result Value Ref Range Glucose, POC 102 70 - 109 mg/dL POC Glucose Collection Time: 04/10/20 11:47 AM Result Value Ref Range Glucose, POC 120 (H) 70 - 109 mg/dL Imaging: Recent Results (from the past 360 hour(s)) CT Head wo Contrast Narrative EXAM: CT HEAD WO CONTRAST dated 04/08/2020 3:27 PM HISTORY: Emergent Patient - see comments Pain Comparison: None. TECHNIQUE: Noncontrast CT is performed from the top of calvarium through the skull base. Coronal and sagittal reformats are performed. DOSE: DLP 735.38 mGy-cm FINDINGS: BRAIN: No significant cerebral or cerebellar atrophy. There is some subtle gyral hyperintensity in portions of the right occipital lobe and medial temporal lobe. There is a prominent area of hypoattenuation in some loss of shah-white differentiation throughout this same region. There is no associated mass effect. There are areas of hypoattenuation in the periventricular white matter of both frontal lobes. There is a focal area of hypodensity in the left cerebellar hemisphere that may be encephalomalacia. There is appropriate size and configuration of the ventricles. Bilateral basal ganglia mineralization. Calcified disease in the cavernous carotids and posterior circulation. SCALP/ CALVARIUM: The scalp and skull are intact and are unremarkable. SINUSES / ORBITS/ MASTOIDS: There is a small amount of opacification in the inferior right mastoid air cells. There is diffuse opacification throughout the left middle ear. There is mild mucosal thickening in the ethmoid air cells. There are chronic appearing changes along the upper right maxillary sinus. The globes and retrobulbar structures are symmetric and unremarkable. Impression Findings in the right occipital and temporal lobes consistent with the history of subacute ischemia and probable cortical mineralization. Encephalomalacia in the left cerebellar hemisphere is diffusely with a chronic infarct. Bilateral white matter disease. Left otitis media. Dictated and Signed by: Mehrdad Lakhani MD Electronically signed: 04/08/2020 4:[address] Angiogram Head Neck Acute Stroke Narrative EXAM: CT ANGIOGRAM HEAD NECK ACUTE STROKE dated 04/08/2020 5:55 PM HISTORY: Eval stroke work up COMPARISON: Noncontrast head CT performed the same day. TECHNIQUE: Post contrast imaging is performed through the head and neck vasculature following the arterial timed injection of 120 ml of Omnipaque 350. Images are reconstructed. DOSE: DLP 590.29 mGy per centimeter FINDINGS: HEAD CTA: Focal high-grade narrowing in the intracranial right vertebral artery. Focal moderate to severe narrowing in the intracranial left vertebral artery. There is a patent right posterior inferior cerebellar artery. There is a patent left anterior inferior cerebellar artery. Basilar artery is widely patent. Superior cerebellar arteries are patent bilaterally. The left posterior cerebral artery is diffusely diseased but patent. The right posterior cerebral artery is patent for approximately 1 cm. It is then occluded. No definite posterior communicating arteries. The intracranial internal carotid arteries are patent bilaterally. There is diffuse disease through the cavernous portions with mostly mild narrowing. There is a focal area of mild to moderate narrowing in the distal right cavernous internal carotid artery. The middle cerebral arteries are patent. The anterior cerebral arteries are patent. There is diffuse mild disease in the right A1 segment. There is a patent anterior communicating artery. NECK CTA: Aorta: No aneurysmal dilatation or dissection in the visible portion of the aortic arch. There is mild disease in mild narrowing in the proximal brachiocephalic artery. There is mild disease in mild narrowing in the proximal right subclavian artery. The visible right axillary artery is patent. There is mild disease in narrowing in the proximal several centimeters of the left subclavian artery. The visible left axillary artery is patent. Right: Mild disease in mild narrowing in the proximal, carotid artery. Mild disease in mild narrowing (less than 50% narrowing based on NASCET criteria) in the internal carotid artery. The right vertebral artery is codominant. It is patent at its origin. It is patent throughout its extracranial extent. Left: Mild disease in the left common carotid artery. Mild disease in the internal carotid artery. No significant narrowing. The left vertebral artery is codominant. It is patent at its origin through its extracranial extent. NONVASCULAR: No abnormal parenchymal enhancement. No mass effect upon the airway. No cervical lymphadenopathy. No visible salivary gland mass. There is mild diffuse enlargement of the thyroid without definite focal thyroid disease. Emphysematous changes are present in the upper lungs bilaterally. Anterior cervical discectomy and fusion changes at C5, C6, and C7. Impression Occlusion of the right posterior cerebral artery approximately 1 cm from its origin. High-grade and moderate to high-grade narrowing in the intracranial right and left vertebral arteries. No definite posterior communicating arteries. No significant atherosclerotic narrowing in the internal carotid arteries bilaterally. Dictated and Signed by: Mehrdad Lakhani MD Electronically signed: 04/08/2020 6:30 PM MRI Brain wo Contrast Narrative TECHNIQUE: MRI of the brain with sequences to include sagittal T1, axial T1, axial diffusion-weighted imaging and ADC maps, axial T2, axial T2 FLAIR, axial susceptibility weighted imaging. CLINICAL INFORMATION: Neuro deficit, acute, stroke suspected COMPARISON: CT dated 04/08/2020 FINDINGS: Orbits have a normal appearance. Mild mucosal thickening at the ethmoid air cells. Left mastoid effusion and fluid in the middle ear. Trace right mastoid effusion. Large area of restricted diffusion involving the distribution of the right posterior cerebral artery including the right occipital lobe, posterior medial right temporal lobe the posterior right corpus callosum, and posterior aspect of the right thalamus. Chronic bilateral basal ganglia lacunar infarctions. Multiple T2/flair hyperintense periventricular and subcortical white matter foci are noted without associated restricted diffusion. Focal susceptibility artifact at the basal ganglia, left greater than right, most compatible with punctate basal ganglia mineralization. No suspicious susceptibility artifact in the area of acute infarction to suggest hemorrhagic conversion. Normal appearance of the ventricles and other CSF spaces. No midline shift. No intracranial hemorrhage or mass lesion. Impression Right posterior cerebral artery distribution infarction involving the right occipital lobe, posterior medial right temporal lobe, posterior right corpus callosum, and posterior right thalamus. Nonspecific T2/FLAIR hyperintense periventricular and subcortical white matter findings likely reflect chronic microvascular changes. Chronic basal ganglia lacunar infarctions. Mastoid effusions, left greater than right. Dictated and Signed by: Barrett Hidalgo MD Electronically signed: 04/09/2020 9:01 AM Assessment: Pt now has deficits in attention, executive functioning, memory, cognition, coordination, a mbulation, strength, left field cut, ADLs, and IADLs. Patient demonstrated they are safe to continue therapies, has demonstrated they can do 3 ho urs of therapies per day, are medically complex and need 24 hours physician and IPR nursing care. Rehabilitation Medicine Plan: -- PT for strength, endurance, ROM, ambulation, balance -- OT for UE strengthening, functioning, and ROM; and training in ADLs, IADLs -- Speech therapy (BUSINESS CONTINUITY PLANNER) for cognitive/communication rehab Thank you for the opportunity to be involved in the care of this patient. Please feel free to call with questions or concerns. I will continue to follow with you regarding rehabilitat ion needs. -- -- -- -- -- -- -- -- -- -- -- -- -- -- -- -- -- -- -- -- ---- -- -- -- -- -- -- -- -- -- -- -- -- -- -- -- -- -- -- -- -- Supplemental Rehab Info: Primary Diagnosis: Stroke 01.1 Left body involvement (right brain) Onset: 04/08/2020, with initial CVA 03/19/20 Impairments include:hemiplegia, motor weakness, cognitive deficits, sensory deficits, lisandra n control, left field cut. Comorbidities: (current medical problems) Patient Active Problem List Diagnosis Ischemic cerebrovascular accident (CVA) Hypertension Tobacco abuse Rehab Problem list: Impaired mobility Impaired ADLs Impaired IADLs Impaired communication Impaired Cognition Inpatient Rehabilitation Evaluation Determination: By my evaluation, I have determined that: The patient can participate in 3 hours of therapy per day and has demonstrated appropriate carryover, they are ready for inpatient rehabilitation admission. The pt is medically ready with no further medical/surgical interventions planned, but has complex rehab and medical ne eds requiring intensive therapy intervention. I anticipate that the patient will meet the pamella criteria: 1) able to make a meaningful amount of functional progress in a reasonable amount of time. 2) The patient is willing and able to participate in rehabilitation therapies based on prog ress during acute care. 3) The patient will require 24 hours supervision from rehabilitation physicians and nursing . 4) Rehabilitation goals cannot be achieved at a lower level of care. 5) Patient requires a minimum of the 3 hours of intensive therapy per day. Rehabilitation medicine physician for daily monitoring of care, 24 hour availability for ac deloris medical issues, medication management, and therapeutic and diagnostic assessments. 24 hour rehabilitation nursing 7 days per week for: management/teaching of medications, bow el/bladder routine, skin care. PT for 60 minutes per day 5-6 days/week OT for 60 minutes per day 5-6 days/week BUSINESS CONTINUITY PLANNER for 60 minutes per day 4-6 days/week Prosthetics/Orthotics/Equipment: PT and OT will evaluate the patient regarding the need for equipment such as 2 wheeled walker, 4 wheeled walker versus a wheelchair, as well as other needs such as ankle or knee braces, bed side commodes, transfer poles, canes, toilet riser f rames, grab bars, sliding boards. They will also make recommendations regarding possible ne eds for extra help at home for laundry, grocery shopping, house cleaning, or even 24/ help or supervision. . SW for discharge planning, community resources, and family support. Estimated length of stay is 10 days and pt is planning to discharge home with his . Current barriers to inpatient rehabilitation include: weakness, decreased balance, neglect, decreased cognition, left neglect Goals/Expected level of improvement: mod I with ambulation, ADLs, toileting, supervision-min A with iADLs, and supervision with community access. Potential Clinical Complications: falls with injury, depression d/t new injury and deficits , [place], aspiration pneumonia Inpatient Rehabilitation Recommendation: The patient is currently a good candidate for inpatient rehabilitation. We will coordinate with the physicians, nurses, family, and, if applicable, the insurance companies to expedit e the admission as soon as possible. Signed: Deacon Vanegas MD DATE/TIME: 04/10/2020 4:41 PM Portions of this chart may have been created with [employer] voice recognition software. Occas ional wrong-word or sound-alike substitutions may have occurred due to the inherent li mitations of voice recognition software. Please read the chart carefully and recognize, in g context, where these substitutions have occurred Maria Elizondo MSW - 04/10/2020 4:29 PM PDTIRF Consultation Review and Final Decision sql manager received IRF consult for Efren and has reviewed his case with Dr. Vanegas. OJLENE h eard back from [facility] at the [place] who indicated that the [place] has given authorization for Tricia ross to be admitted to the IRF for continuation of care. VERS health and social care teacher, Basilio Marquez @ [phone], FAXED over authorization to JOLENE and Efren is being admitted to the unit th is evening between 5:00 and 7:00 pm. JOLENE reached out to his , Susie, and she is also aware of the transfer and will drop off his clothing, shoes, personal items and tablet this coming Tuesday. Case Management, nursing, and sales performance manager were also made aware of the decis ion and will schedule accordingly. .Electronically signed by: GRAYSON Keating 04/10/2020 4:35 PM Maria Elizondo MSW - 4:33 PM PDTIRF Consultation Review sql manager received IRF consult for Efren and has reviewed his case with Dr. Vanegas. Unf ortunately, IRF cannot accept VA Insurance, but if VA can be funding source, IRF can review patient for possible admittance. CM reached out to the [facility] and spoke with GUTIERREZ Sadler, who i nstructed CM to FAX over clinicals to LEÓN Ellington @ [phone] for review. CM FAXED over clinicals and will wait to hear back from [place] with determination if they are able to be the funding source for Efren and if they can, Dr. Vanegas will review Efren's case for possibl e IRF admittance. .Electronically signed by: GRAYSON Keating 04/09/2020 4:49 PM documented in this enco unter ED Notes Carter Hope MD - 04/08/2020 3:15 PM PDT Chief Complaint: Headache HPI: Efren Pollack is a 55 y.o. male who presents to the Emergency Department was been havin g headache for several days. He was seen in outside hospital had what he states is an MRI t hat revealed hemorrhage. They gave him a referral to neurosurgery but is not been able foll ow up with him. Since that time he developed increasing headache as well as left-sided weak ness and left-sided visual field cut. He's not had fever. No cough. No vomiting. No rece nt trauma. Past Medical and Surgical History: The patient has no past medical history on file. The patient has no past surgical history o n file. Family and Social History: The patient's family history is not on file. The patient Medications: No current outpatient medications on file prior to encounter. Allergies: No Known Allergies Review of Systems: Positive findings in the HPI, all other systems were reviewed and are negative Physical Examination: VITAL SIGNS: (first vital signs):Temp: 36.3 C (97.4 F) Pulse: 54 Resp: 23 SpO2: 99 % BP : 117/79 General: somewhat slowwith slow to respondbut alert and oriented, appears well, non toxic, GCS 15 Eyes::EOMI, no Ptosis, visual field cut on the left ENMT: Normocephalic, atraumatic, OP clear Neck: Supple, full range of motion, no tracheal deviation Cardiovascular: Normal rate and rhythm, normal 2 + radial pulse Respiratory: No tachypnea, no respiratory distress, no stridor Musculoskeletal: normal ROM, no edema, no cyanosis Neurologic: Alert, no cranial nerve deficits, no focal deficits Skin: warm and dry, no ulcerations ECG: (Interperted by me) Sinus bradycardia, 52 bpm, no other acute Labs: CBC: unremarkable BMP: unremarkable INR 1.0 Imaging: (Xrays interpreted by me) CT head with right occipital temporal lobe subacute ischemia ED Course & Medical Decision Making: Patient here with subacute stroke. He's been having progressing symptoms since this first occurred. Initially started with sensory processing but now is turned into a visual field c ut as well as partial left side hemiparesis. He continues to have a headache. CT scan reve als subacute ischemia. He has not been followed effectively as an outpatient. Given his wo rsening symptoms as well as need for urgent workup and evaluation discussed the case with ho spitalist for further evaluation management. Disposition: Admit Final Impression: CVA Carter Hope MD 04/08/20 1651 allory Hernandez RN - 04/08/2020 3:13 PM PDTArrives with c/o headache, "horrible BERNSTEIN" and left sided weakness. S tates he was referred here for "another MRI" for known brain bleed. Noted left side weaker a nd dec'd vision in left eye. 3:2 9 PM PDTdocumented in this encounter Miscellaneous Notes Plan of Care - Aylin Gottlieb RN - 04/10/2020 4:31 PM PDTGreg's NIH was stable at 4 throughout shift for mild droop with visual loss and left sided weakness. VSS, tolerating di et, CGA for ambulation, BM today. Transferred to IRF after dinner, notified via phone b y CM. lan of Care - Carolyn Luther RN - 04/10/2020 4:26 PM PDT Problem: Discharge Planning Goal: Patient's discharge needs will be identified in a timely manner Outcome: Ongoing, progressing Received a call from Mallory Ellington RN at the [place] who has been working with Efren trying to g et him into a neurologist. She explained her concerns and frustration with a neurology clinic in [facility] that would not see him. The [place] physicians were thinking that he may have MS, but his MRI today shows a recent stroke that correlates with his sx. Also received a message from the associate software application engineer that Efren's would like a call from joanna ford. This case liner called Susie with an update. Let her know that we are trying to get him into IPR. She wanted help applying for social Diversion benefits, but told her she needs to go to her local social security office to start the process. She would like a call from the doctor. Told her I would get Dr. Rios to give her an updat e. Dr. Rios did call her right away with an update. PT/OT and MD all think Efren would be an excellent candidate for IPR. A referral was placed and Maria, The rehab housekeeper child care is working with the [place] to authorize payment source. Maria the rehab, CM let me know about 1600 that Efren has been accepted into rehab. Called Monica torrez back and let her know that Efren has been accepted to IPR. She was very happy with t his news. She wanted to know if he could have visitors there and I let her know that it is no different that the hospital. She states she is going to drop off an ipad so they can vis it via skype or zoom. Plan: IPR between 1700 and 1900 tonight. Electronically signed by: Carolyn Luther RN 2019 4:43 PM This case liner also sent off a GEC to the [facility] to apply for some home based care. H & P , med list and PT/OT notes also provided. Fax confirmation received.Electronically signed b y: Carolyn Luther RN 04/10/2020 5:41 PM lan of Care - Fiorella Rao, Speech Pathologist - 04/10/2020 3:38 PM PDTFormatting of this note might be diffe rent from the original. Speech Therapy Plan of Care Treatment Note Summary: Efren has been participating in speech therapy for treatment of Severe cognitive impairments. Emphasis of session included administration of a full cognitive assessment demetrio ross the RBANS forma a. See below for results. Remaining barriers to Cognition include comorbi dities, severity of deficits. Speech was clear, spontaneous, and logical, however tangential at times. Efren will benefit from continued therapeutic intervention to address ongoing impa irments and increase safety and independence. Refer below for specific details regarding sp ecifics of session and impairments. Repeatable Battery for the Assessment of Neuropsychological Status (RBANS): Efren scored a total scale score of 65 on the RBANS (see breakdown below) and a Classificati on of Extremely Low (69 and below). This score indicates he is over 3 Standard Deviations ( 15) below normal limits (score 100). Scores: Total Score Index Score Classification Immediate Memory 69 Severe List Learning 21 Story Memory 11 Visuospatial/Constructional 64 Severe Figure Copy 7 Line Orientation 13 Language 90 WNL Picture Naming 10 16 Semantic Fluency 16 Attention 91 WNL Digit Span 16 Coding 8 Delayed Memory 48 Severe List Recall 3 List Recognition 16 Story Recall 0 Figure Recall 3 Sum of Index Scores: 362 Total Scale Score: 65, indicating an overall severe impairment. Severe deficits in the are a of immediate memory, short term memory, and visuospatial/constructional skills. Language a nd attention function within normal limits. Significant left side neglect also observed. Interpretation: Qualitative Descriptions of RBANS Index Scores Index Score Classification 130 and above Very Superior 120-129 Superior 110-119 Highly Average 90-109 Average 80-89 Mild 70-79 Moderate 69 and below Severe Speech Language Pathology Discharge Recommendations are: Recommended discharge disposition: IRF Post discharge speech language pathology recommendation: continue BUSINESS CONTINUITY PLANNER tx for cognitive-dillon guistic, outpatient therapy Identified Problems Needing Skilled Intervention: Severe cognitive impairments Planned Interventions: compensatory strategies, memory, executive function skills, reading , cognitive stimulation, writing Recommended Frequency: 5 times/wk, daily Patient Status/Goals: Reflects last filed data and may be from multiple contributors. Cognitive Mood/Behavior: calm, cooperative Orientation: oriented x 4 Attention: WNL/WFL Arousal Level: opens eyes spontaneously Speech: clear, logical, spontaneous Auditory Comprehension WNL Verbal Expression WNL Reading Wears reading glasses. Significant impairment with vision, left side neglect Writing Further assessment is needed. Voice WNL BUSINESS CONTINUITY PLANNER Goal Review Date Most Recent Value STG Review Date 04/17/20 at 04/10/2020 153 Cognition Goal Most Recent Value STG Status met at 04/10/20201537 STG Pt will participate in a cognitive assessment to determine strengths/weaknesses and u pdate POC. at 04/10/20201537 Additional Goals #1 BUSINESS CONTINUITY PLANNER Most Recent Value STG Status new at 04/10/20201537 STG Patient will improve immediate memory skills to accuracy of 85% and min cues from clin ician at 04/10/20201537 Additional Goals #2 BUSINESS CONTINUITY PLANNER Most Recent Value STG Status new at 04/10/20201537 STG Patient will improve short term memory skils to 85% with min cues at 04/10/20201537 Additional Goals #3 BUSINESS CONTINUITY PLANNER Most Recent Value STG Status new at 04/10/20201537 STG Patient will participate in education of compensatory strategies for improved STM at 0 04/10/20201537 LTG Status new at 04/10/20201537 LTG Patient will utilize compensatory strategies for improved recall 4/5 opportunities ove r 3 consecutive sessions and min cues at 04/10/20201537 BUSINESS CONTINUITY PLANNER Time Calculation BUSINESS CONTINUITY PLANNER Individual Start Time: 1500 BUSINESS CONTINUITY PLANNER Individual Stop Time: 1538 BUSINESS CONTINUITY PLANNER Individual Total Time: 38 BUSINESS CONTINUITY PLANNER Missed Treatment Time: 0 BUSINESS CONTINUITY PLANNER Total Treatment Time: 38 Timed TX Code Minutes: 0 Electronically signed by: Fiorella Rao Speech Pathologist, 04/10/2020 4:11 PMElectronicall y signed by Fiorella Rao Speech Pathologist at 04/10/2020 4:26 PM PDTPlan of Care - Zainab son, Gini, PT - 04/10/2020 2:00 PM PDTFormatting of this note might be different from t he original. Physical Therapy Plan of Care Treatment Note Summary: Efren has been participating in physical therapy for treatment of impaired balanc e, basic mobility, and high level gait following CVA 03/19. Emphasis of session included bal ance training and gait with distractions. Patient demonstrates progress towards functional goals as evidenced by increased tolerance to activity. Efren with significant path finding a nd memory impairment. Patient unable to recall instructions to "Take a right out of the deshawn m, walk down to the end of the holt, and take a right into the therapy room" - patient took a right in the holt, then attempted to take a right into the next patient room. Following re-instruction attempted to enter patient room 4 down from his. Unable to recall events of the therapy session or retrace steps when fatigued. Patient was agreeable to therapy. Patient participated without adverse reaction. Patient is encouraged to ambulate into hallway with nursing staff. It is encouraged that the patient b e up in chair for all meals. Recommended mobility with nursing: Day Night into the hallway into the bathroom No Assistive Device No Assistive Device stand by assistance contact guard assistance Remaining barriers to discharge and functional limitations include decreased insight into s afety and deficits, decreased functional activity tolerance, decreased functional transfers, decreased gait velocity, stairs at home, demonstrating need for 24/7 supervision, not yet a ble to mobilize at level safe for home discharge, AMPA indicating significant impairment wi th basic functional mobility, medical status, and vision and cognitive status. Efren may lakeisha efit from stay in IRF in order to attain level closer to baseline prior to return home. Efren will benefit from continued therapeutic intervention to address ongoing impairments an d increase safety and independence with activities necessary for safe discharge. Refer jean-pierre valle for specific details regarding functional levels. Physical Therapy Discharge Recommendations are: Recommended discharge disposition: inpatient rehabilitation facility Post discharge physical therapy recommendation: will benefit from structured setting, pt i s motivated participant, minimum 5 days of therapy/week, ongoing high intensity therapy Equipment Recommendations: none Planned Interventions: balance training, bed mobility training, gait training, home exerci se program, patient/family education, strengthening, transfer training Recommended Frequency: (5-7 times/wk) Patient Status/Goals: Reflects last filed data and may be from multiple contributors. Gait fatigue with prolonged activity. assistance and cues for safety. knee buckling with each step when fatigued, ran into wall on left x1 Level of Wilcox: stand by assist Assistive Device: none Impairments: impaired balance, coordination impaired, motor control impaired Transfers SBA with gait belt Sit-Stand, Level of Wilcox: stand by assist Stand-Sit, Level of Wilcox: stand by assist Hhu-Nyufg-Vwy, Assistive Device: gait belt Safety Issues: step length decreased, weight-shifting ability decreased Impairments: coordination impaired, sensory feedback impaired Therapeutic Exercise Balance exercises: catch, throw, head turns Repetitions: volleyball x5 min, impaired reaching to the left, no attempts to reach wh en the volleyball when about 3 feet left of midline. "round the world" catch x5 with cues t o keep feet planted as tendancy towards turning entire body Functional Exercises: A-G Scavenger chakraborty down 45 foot hallway (A,B,D,G on left; C,E,F on ri ght) with cues to find in alphabetical order. [id number] (BATHROOM BREAK) D Functional Endurance fatigue with prolonged activity PT Goal Review Date Most Recent Value STG Review Date 04/16/20 at 04/09/2020 1045 Gait Goal Most Recent Value STG Status progressing at 04/10/2020 1400 STG Wilcox Level modified independent at 04/09/2020 1045 STG Assistive Device none at 04/09/2020 1045 STG Distance (feet) 500 at 04/09/2020 1045 Additional Goal #1 PT Most Recent Value STG Status progressing at 04/10/2020 1400 STG Improve DGI to at 04/09/2020 1045 PT Time Calculation Individual Start Time: 1330 Individual Stop Time: 1400 Individual Total Time: 30 Missed Treatment Time: 0 PT Total Treatment Time: 30 Timed TX Code Minutes: 30 Electronically signed by: Gini Myers, PT, 04/10/2020 2:17 PM lan of Care - Anabela Bah OT - 04/10/2020 11:05 AM PDT Occupational Therapy Plan of Care Treatment Note Summary: Efren has been participating in occupational therapy for treatment of decreased A DLs, decreased functional mobility, mod to severe visual impairments affecting ADLS and func tional mobility,motor planning problems, LUE decreased proprioception and kinesthetic sense, sensory motor, sensation deficits affecting daily activities.. Emphasis of session include d ADLs, LUE sensation testing, ocular alignment-visual motor. Patient demonstrates progress towards functional goals as evidenced by participation with OT. RN cleared patient for participation in therapy. Patient was agreeable to therapy. Patient participated without adverse reaction. RN debriefed on therapy session and patient status. I t is encouraged that the patient be up in chair for all meals. Recommended toileting with nursing: Day Night toilet toilet No Assistive Device No Assistive Device contact guard assistance contact guard assistance Remaining barriers to discharge and functional limitations include decreased insight into s afety and deficits, decreased functional activity tolerance, decreased bed mobility, decreas ed functional transfers, decreased ability to perform ADLs, demonstrating need for 24/7 supe rvision, not yet able to mobilize at level safe for home discharge, and medical status. Efren will benefit from continued therapeutic intervention to address ongoing impairments an d increase safety and independence with activities necessary for safe discharge. Refer jean-pierre valle for specific details regarding functional levels. Occupational Therapy Discharge Recommendations are: Recommended discharge disposition: inpatient rehabilitation facility Post discharge occupational therapy recommendation: pt is motivated participant, will bene fit from structured setting, ongoing high intensity therapy, able to tolerate 3 hours of the rapy/day Equipment Recommendations: (TBD) Planned Interventions:ADL retraining, balance training, fine motor coordination training, f unctional endurance training, motor coordination training, neuromuscular re-education, patie nt/family education, transfer training, visual/perceptual retraining Recommended Frequency: daily Patient Status/Goals: Reflects last filed data and may be from multiple contributors. ADLs Increase time and effort VC throughout due to spatial relation and depth perception impairm ents. hospital pants. Increase time and effort to don. stand and pull up with continual VC to use LUE due to lack of sensation LUE and visual impairments LB Dressing, Level of Wilcox: stand by assist Assistive Device: none LB Dressing Assess/Train, Position: sitting, standing LB Dressing Impairments: coordination impaired, sensory feedback impaired, impaired vision standing at toilet to urinate. Toileting, Level of Wilcox: stand by assist Assistive Device: none Toileting Assess/Train, Position: standing Toileting Impairments: impaired vision, coordination impaired standing at sink to brush teeth and wash face. VC to engage LUE. increase time and effot. Grooming, Level of Wilcox: stand by assist, verbal cues required, set up required Assistive Device: none Grooming Assess/Train, Position: standing Grooming Impairments: coordination impaired, impaired vision Vision: Vision Comments: Object identification visual and naming: box with items in front 20 object s- pt able to distinguish all items. Ambulation tendency to run into object l side and R haylie e due to lack of spatial relations and depth perception. cont vertical diplopia.. lack of di fferentiation of eyes/head. visual motor activity pt tendency to log turn to object vs turni ng head eyes. Continual VC for pt to differentiate. Saccadic eye corrective movement. lakc of visual focus with turning of head. Additional Documentation: visual impairments, tracking visual pursuits Visual Impairment: visual impairment, left Functional Endurance Good for activities performed Cognitive Mood/Behavior: calm, cooperative Orientation: oriented x 4 Attention: WNL/WFL Arousal Level: opens eyes spontaneously Speech: spontaneous, logical, slurred, pace/rate variance Transfers SBA with gait belt. Pt tendency to run into objects L due to field cut and R due to lack of spatial relations and depth perception. Sit-Stand, Level of Wilcox: stand by assist Stand-Sit, Level of Wilcox: stand by assist Fpl-Acaux-Sli, Assistive Device: gait belt Safety Issues: step length decreased, weight-shifting ability decreased Impairments: coordination impaired, sensory feedback impaired Sensation: sensation BUE with eyes closed. Pt C/O not having sensation around L ear and temporal side of of head. LUE Light Touch: absent sensation RUE Light Touch: WNL LUE Sharp/Dull Discrimination: absent sensation RUE Sharp/Dull Discrimination: WNL LUE Proprioception: moderate impairment RUE Proprioception: WNL LUE Stereognosis: severe impairment RUE Stereognosis: WNL OT Goal Review Date Most Recent Value STG Review Date 04/16/20 at 04/09/2020 1400 Grooming Goal Most Recent Value STG Status met, revised at 04/10/2020 1341 STG Wilcox Level supervised at 04/10/2020 1341 STG Position standing at 04/09/2020 1400 STG Adaptive Equipment none at 04/09/2020 1400 LB Dressing Goal Most Recent Value STG Status progressing at 04/10/2020 1341 STG Wilcox Level supervised at 04/09/2020 1400 STG Adaptive Equipment none at 04/09/2020 1400 Toilet Transfer Goal Most Recent Value STG Status new at 04/09/2020 1400 STG Wilcox Level stand by assist at 04/09/2020 1400 STG Assistive Device none at 04/09/2020 1400 STG Comments decreasing log pattern. Able to differenitiate eye/head- turning normally at 04/09/2020 1400 Vision Goal Most Recent Value STG Status progressing at 04/10/2020 1341 STG Increase ocular alignment- smooth pursuits, vergence, initiate saccadic eye motion, in crease VOR with eye focusing. decrease diplopia, increase depth perception and spatial relat ion affecting ADLs. at 04/09/2020 1400 Additional Goals #2 OT Most Recent Value STG Status progressing at 04/10/2020 1341 STG Increase LUE sensation affecting ADLs and safety. Increase coordination. at 04/09/2020 1400 OT Time Calculation OT Individual Start Time: 1005 OT Individual Stop Time: 1100 OT Individual Total Time: 55 OT Total Treatment Time: 55 Timed [place] Code Minutes: 55 Electronically signed by: Anabela Bah OT, 04/10/2020 1:49 PM lan of [facility] - Dom Alvarez RN - 04/09/2020 7:02 PM PDTComplained of headache twice and managed wi th acetaminophen. Diet advanced to fat and cholesterol. Clonidine held due to BP 111/66 an d HR 52. New orders for enoxaparin, pantoprazole, and impatient consult to rehab unit. NIH Stroke Scale 4. BG ranged from 92-138 mg/dL. lan of Fiorella Gilmore, Speech Pathologist - 04/09/2020 3:35 PM PDT Speech Therapy Plan of Care Initial Evaluation Note Summary: Efren presents to speech therapy with Slight dysarthria, suspected higher level co gnitive deficits s/p CVA. Patient participated in an assessment of expressive and receptive language due to concerns for expressive aphasia. Patient participated in the Western Aphasia Battery - revised. See below for results. Objective exam reveals impairments characterized by slight dysarthria with more complex utterances and suspected high level cognitive abiliti es. Barriers to Cognition, motor speech include comorbidities. Efren will benefit from intens e therapeutic intervention in IRF to address impairments and increase safety and independenc e. Refer below for specific details regarding specifics of session and impairments. High lev el cognitive deficits suspected. Participation in a full cognitive assessment recommended to further guide treatment plan. Cognitive deficits observed today during session included: sl ow to respond, tangential conversation suspicious for attention deficits, difficulty with di vergent thinking. Western Aphasia-Battery Revised (WAB-R): Efren scored as following on the WAB-R: Aphasia Quotient (sum of below x2): Spontaneous speech: Aud comp: 09/06 Repetition: 09/06 Namin.6/10 Aphasia Type: None Spontaneous speech total: * Information content: 08/07 * Fluency: 09/06 Auditory verbal comprehension Total: 09/06 * Yes/no questions: 60/60 * Aud wd reco/60 * Seq commands: 80/80 Repetition: 100/100 Naming and Word Finding Total: * Object namin/60 * Wd fluency: 16/20 * Sentence completion: 09/06 * Responsive speech: 09/06 Aphasia Quotient (AQ): 93 and above = WNL- No Aphasia; High level cognitive deficits suspec singh. Participation in a full cognitive assessment recommended to further guide treatment mary n. Cognitive deficits observed today during session included: slow to respond, tangential co nversation suspicious for attention deficits, difficulty with divergent thinking. Slight sl urring of speech observed during complex verbal utterances. Will administer a dysarthria ass essment in upcoming sessions if warranted. For more information, please visit: [email or web address] Precautions/Limitations: falls, vision impairment Previous Level of Function: Transferring: independent Ambulation: independent Toileting: independent Bathing: independent Dressing: independent Eating: independent Communication: understands/communicates without difficulty Swallowin-->swallows foods/liquids without difficulty Equipment Currently Used at Home: 2 wheeled walker (FWW) Prior Functional Level Comment: prior to mid February: Pt lives at home with and was inde pendent with all ADLs, and gardening. No AD with ambulation. Potential available assistance at discharge: Significant Relationships: spouse Patient/Family s Goals: None stated at this time Rehabilitation potential: good Speech Language Pathology Discharge Recommendations are: Recommended discharge disposition: IRF Post discharge speech language pathology recommendation: continue BUSINESS CONTINUITY PLANNER tx for cognitive-dillon guistic, outpatient therapy Identified Problems Needing Skilled Intervention: Slight dysarthria, suspected higher leve l cognitiv deficits s/p CVA. Planned Interventions: attention, compensatory strategies, executive function skills, nataliia ent/caregiver education, memory, problem solving, cognitive stimulation Recommended Frequency: 4 times/wk, 5 times/wk Patient Status/Goals: Reflects last filed data and may be from multiple contributors. Cognitive Mood/Behavior: calm, cooperative Orientation: oriented x 4 Attention: WNL/WFL Arousal Level: opens eyes spontaneously Speech: pace/rate variance, slurred(Slight slurring of speech with complex speech) Able to follow 4 step directions Auditory Comprehension WNL Verbal Expression Slight dysarthria Reading Wears reading glasses Writing Patent reported writing ability has been impacted. Cognition Goal Most Recent Value STG Status new at 04/09/2020 1535 STG Pt will participate in a cognitive assessment to determine strengths/weaknesses and u pdate POC. at 04/09/2020 1535 BUSINESS CONTINUITY PLANNER Time Calculation BUSINESS CONTINUITY PLANNER Individual Start Time: 1450 BUSINESS CONTINUITY PLANNER Individual Stop Time: 1535 BUSINESS CONTINUITY PLANNER Individual Total Time: 45 BUSINESS CONTINUITY PLANNER Missed Treatment Time: 0 BUSINESS CONTINUITY PLANNER Total Treatment Time: 45 Timed TX Code Minutes: 0 Electronically signed by: Fiorella Rao, Speech Pathologist, 04/09/2020 3:53 PMElectronicall y signed by Fiorella Rao Speech Pathologist at 04/09/2020 4:07 PM PDTPlan of Care - Jonathan rosibel Anabela E, OT - 04/09/2020 2:30 PM PDTFormatting of this note might be different fr om the original. Occupational Therapy Plan of Care Initial Evaluation, Treatment Note Summary: Efren presents to occupational therapy with decreased ADLs, decreased functional mobility, mod to severe visual impairments affecting ADLS and functional mobility,motor plan yazmin problems, LUE decreased proprioception and kinesthetic sense, sensory motor, sensation deficits affecting daily activities.. Objective exam reveals impairments with aerobic capac ity/endurance, ergonomics and body mechanics, functional endurance/activity tolerance, gait, locomotion, and balance, motor function, neuromotor, sensory integration/regulation, visual /perceptual, .DX CVA 03/19. RN cleared patient for participation in therapy. Patient was agreeable to therapy. RN debri efed on therapy session and patient status. It is encouraged that the patient be up in chair for all meals.Pt is unsafe with AD due to visual and motor planning impairments. Recommended toileting with nursing: Day Night toilet toilet No assistive device No assistive device contact guard assistance contact guard assistance Barriers to discharge and functional limitations include decreased insight into safety and deficits, decreased functional activity tolerance, decreased bed mobility, decreased functio nal transfers, decreased ability to perform ADLs, demonstrating need for 24/7 supervision, n ot yet able to mobilize at level safe for home discharge, and medical status. Efren will benefit from therapeutic intervention to address impairments and increase safety and independence with activities necessary for safe discharge. Refer below for specific det ails regarding functional levels. Precautions/Limitations: falls, vision impairment Previous Level of Function: Transferring: independent Ambulation: independent Toileting: independent Bathing: independent Dressing: independent Eating: independent Communication: understands/communicates without difficulty Swallowin-->swallows foods/liquids without difficulty Equipment Currently Used at Home: 2 wheeled walker (FWW) Prior Functional Level Comment: prior to february: Pt lives at home with and was inde pendent with all ADLs, and gardening. No AD with ambulation. Potential available assistance at discharge: Significant Relationships: spouse Living Environment/Accessibility: Lives With: spouse Living Arrangements: house Home Accessibility: no concerns Number of Stairs to Enter Home: 0 Number of Stairs Within Home: 0 Financial Concerns: none Transportation Available: family or friend will provide Living Environment Comment: N/A Patient/Family s Goals: further therapy. Pt aware of visual problems and LUE problems aff ecting him to be independent. Rehabilitation potential: extremely good Occupational Therapy Discharge Recommendations are: Recommended discharge disposition: inpatient rehabilitation facility Post discharge occupational therapy recommendation: pt is motivated participant, will bene fit from structured setting, ongoing high intensity therapy, able to tolerate 3 hours of the rapy/day Equipment Recommendations: (TBD) Planned Interventions:ADL retraining, balance training, fine motor coordination training, f unctional endurance training, motor coordination training, neuromuscular re-education, patie nt/family education, transfer training, visual/perceptual retraining Recommended Frequency: daily Patient Status/Goals: Reflects last filed data and may be from multiple contributors. ADLs hospital socks. slow increase time and effort due to visual impairments and L side coordina tion impairments, spatial relation deficits LB Dressing, Level of Wilcox: stand by assist Assistive Device: none LB Dressing Assess/Train, Position: sitting LB Dressing Impairments: coordination impaired, sensory feedback impaired, sensation decrea sed Vision: Vision Comments: Ocular alignment: smooth pursuits: see below. vergence alck of B eyes movi ng except for breaks 24-16-8 inches. though attempting to find object. position of eyes focu sing R eye pupil superior to L side inferior. observed vertical diplopia and pt c/o vertica l diplopia. when asked if he was experiencing pt denied until therapist stated looks vertica l Pt stated he didn't consider that double vision.. Saccadic eye motion pt unable to perfor m continually had to turn head horizontal or vertical. VOR slow: serve lack of eyes focusin g on object saccadic eye correction horizontal and vertical. pt denied dizziness. finger to object to thumb. R side of midline pt able to perform with R and L hand slowly. L side of m idline undershooting r hand and L hand. peripheral R WNL. L lack 45 degrees from nose. yolanda re lack of depth perception and spatial relations demonstrated. Log pattern of movement due to visual impairments. Pt stated he only wears glasses for reading Additional Documentation: visual impairments, tracking visual pursuits Visual Impairment: inattention to the left, left neglect, needs cues to attend visually, de creased visual tracking, decreased convergence, diplopia Functional Endurance Good for activities performed Cognitive Mood/Behavior: calm, cooperative Orientation: oriented x 4 Attention: WNL/WFL Arousal Level: opens eyes spontaneously Speech: spontaneous, logical, slurred, pace/rate variance Bed Mobility Pt able to perform without assistance though L sided moderate lack of coordintaion and dec rease proprioceptive/kinesthetic senses. increase time and effort. Scoot/Bridge, Level of Wilcox: supervised Supine to Sit, Level of Wilcox: supervised Sit to Supine, Level of Wilcox: supervised Impairments: coordination impaired, sensation decreased, sensory feedback impaired, impaire d vision Transfers transfer chair to bed-SBA. Log pattern movement. lack of differentiation eye/head/torso. Sit-Stand, Level of Wilcox: stand by assist Stand-Sit, Level of [place]: stand by assist Euk-Uxecj-Spo, Assistive Device: gait belt Safety Issues: step length decreased, weight-shifting ability decreased Impairments: coordination impaired, motor control impaired, impaired balance, sensory feedb ack impaired Sensation: LUE pt demonstrated decreased stereognosis though will be formaily tesed with sharp/dull. Pt tendency to lean L. LUE hanging over arm rest lack of awareness position to arm. Pt state d at times will go to get up and find his L arm wrapped up. LUE Light Touch: mild impairment RUE Light Touch: WNL LUE Proprioception: moderate impairment RUE Proprioception: WNL Coordination: Coordination Comments: thumb to each finger R WNL. L slow and pt watching L hand. eyes clos ed pt unable to perform L side. R side WNL Additional Documentation: L UE, rapid alternating movements LUE coordination: impaired Rapid Alternating Movements: LUE slow when both hands plam down/palm up. Pt unable to perfo rm bilateral one palm up/other palm down. able to perform one hand at a time. ROM BUE. LUE slower to mobilize ROM Testing Results: no range of motion deficits identified Coordination and sensory impairments affecting daily function Strength RUE WNL. LUE movement initiated then able to hold. Strength Testing Results: no strength deficits were identified OT Goal Review Date Most Recent Value STG Review Date 04/16/20 at 04/09/2020 1400 Grooming Goal Most Recent Value STG Status new at 04/09/2020 1400 STG Wilcox Level stand by assist, set up required at 04/09/2020 1400 STG Position standing at 04/09/2020 1400 STG Adaptive Equipment none at 04/09/2020 1400 LB Dressing Goal Most Recent Value STG Status new at 04/09/2020 1400 STG Wilcox Level supervised at 04/09/2020 1400 STG Adaptive Equipment none at 04/09/2020 1400 Toilet Transfer Goal Most Recent Value STG Status new at 04/09/2020 1400 STG Wilcox Level stand by assist at 04/09/2020 1400 STG Assistive Device none at 04/09/2020 1400 STG Comments decreasing log pattern. Able to differenitiate eye/head- turning normally at 04/09/2020 1400 Vision Goal Most Recent Value STG Status new at 04/09/2020 1400 STG Increase ocular alignment- smooth pursuits, vergence, initiate saccadic eye motion, in crease VOR with eye focusing. decrease diplopia, increase depth perception and spatial relat ion affecting ADLs. at 04/09/2020 1400 Additional Goals #2 OT Most Recent Value STG Status new at 04/09/2020 1400 STG Increase LUE sensation affecting ADLs and safety. Increase coordination. at 04/09/2020 1400 OT Time Calculation OT Individual Start Time: 1330 OT Individual Stop Time: 1425 OT Individual Total Time: 55 OT Total Treatment Time: 55 Timed [place] Code Minutes: 40 Electronically signed by: Anabela Bah OT, 04/09/2020 4:33 PM lan of [facility] - Vince Arreguin [facility] - 04/09/2020 12:01 PM PDTVisited with this patient who came in with weakness and dysarthria. Patient lives in [place] with his . 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 Patient david that he has had symptoms for a couple of w eeks. He has tried to use a borrowed walker but it did not work. [facility] and a [facility] bench for his tub shower. Patient [facility] not [facility] but has s poken to her a few times over the phone since the symptoms started. Patient's plan is to re turn home with his .Electronically signed by: JODIE Vasquez 04/09/2020 12:06 PM lan of [facility] - Gini Myers, PT - 04/09/2020 10:45 AM PDTFormatting of this note might be differ ent from the original. Physical Therapy Plan of Care Initial Evaluation Note Summary: Efren presents to physical therapy with impaired balance, basic mobility, and hig h level gait following CVA 03/19. Objective exam reveals impairments with gait, locomotion, and balance, motor function, neuromotor, muscle performance, sensory integration/regulation, and vision. Efren was very pleasant. He reports that his symptoms started in February, no lisa nge since, but has felt like he is learning to adapt. Efren with high level balance needs an d vision needs (OT notified). Efren may benefit from stay in IRF in order to attain level cl oser to baseline prior to return home. RN cleared patient for participation in therapy. Patient was agreeable to therapy. Patient participated without adverse reaction. RN debriefed on therapy session and patient status. P atient is encouraged to ambulate into hallway with nursing staff. It is encouraged that the patient be up in chair for all meals. Recommended mobility with nursing: Day Night into the hallway into the bathroom No Assistive Device No Assistive Device contact guard assistance contact guard assistance Barriers to discharge and functional limitations include decreased gait velocity, demonstra ting need for 24/7 supervision, not yet able to mobilize at level safe for home discharge, A MPAC indicating significant impairment with basic functional mobility, medical status, and h igh level balance deficits. Efren will benefit from therapeutic intervention to address impairments and increase safety and independence with activities necessary for safe discharge. Refer below for specific det ails regarding functional levels. Precautions/Limitations: falls Previous Level of Function: Transferring: independent Ambulation: independent Toileting: independent Bathing: independent Dressing: independent Eating: independent Communication: understands/communicates without difficulty Swallowin-->swallows foods/liquids without difficulty Equipment Currently Used at Home: 2 wheeled walker (FWW) Prior Functional Level Comment: Borrowed a friends walker to use at home, intermittent use of FWW. prior to February, was independent without AD, likes to garden Potential available assistance at discharge: Significant Relationships: spouse Living Environment/Accessibility: Lives With: spouse Living Arrangements: house Home Accessibility: no concerns Number of Stairs to Enter Home: 0 Number of Stairs Within Home: 0 Financial Concerns: none Transportation Available: family or friend will provide Living Environment Comment: N/A Patient/Family s Goals: Be able to get back to being active Rehabilitation potential: good, to achieve stated therapy goals Physical Therapy Discharge Recommendations are: Recommended discharge disposition: inpatient rehabilitation facility Post discharge physical therapy recommendation: will benefit from structured setting, pt i s motivated participant, minimum 5 days of therapy/week, ongoing high intensity therapy Equipment Recommendations: none Planned Interventions: balance training, bed mobility training, gait training, home exerci se program, patient/family education, strengthening, transfer training Recommended Frequency: (5-7 times/wk) Patient Status/Goals: Reflects last filed data and may be from multiple contributors. Gait safety supervision; cues for safety (please see balance section). patient stopped and turne d entire body as opposed to turning head Level of Wilcox: stand by assist Assistive Device: none Impairments: impaired balance, coordination impaired, motor control impaired Stairs safety supervision Number of Stairs: 4 Handrail Location: right side (ascending) Level of Wilcox: stand by assist Assistive Device: 1 rail Technique Used: step to step (ascending), step to step (descending) Impairments: impaired balance, coordination impaired, motor control impaired Transfers Sit-Stand, Level of Wilcox: stand by assist Stand-Sit, Level of Wilcox: stand by assist [id number]-N[employer], Assistive Device: gait belt Impairments: impaired balance, coordination impaired, motor control impaired Bed Mobility [employer] reported supervision Balance Dynamic Gait Index: Efren scored 9/24 on the Dynamic Gait Index (with gait belt), indicating he is a high fall r isk. Gait Level Surface: 2 - Mild impairment, walks 20', uses assistive device, slower speed, mi ld gait deviation Change in Gait Speed: 2 - Mild impairment: is able to change speeds but demonstrates mild g ait deviation or not gait deviation but unable to achieve a significant change in velocity o r uses assistive device. Horizontal Head Turns: 0 - Severe impairment: performs task with severe disruption of gait, ie. stagger outside 15" path, loses balance, stops, reaches for wall. Vertical Head Turns: 1 - Moderate impairment: performs head turns with moderate change in g ait velocity, slows down, staggers but recovers, can continue to walk Gait Pivot Turn: 1 - Moderate impairment: turns slowly, requires verbal cueing, requires se veral small steps to catch balance following turn and stop Step over Obstacle: 1 - Moderate impairment: is able to step over box but must stop, then s tep over. May require verbal cueing Step around Obstacle: 1 - Moderate impairment: is able to clear cones but must significantl y decrease speed to accomplish task, or requires verbal cueing Steps: 1 - Moderate impairment: two feet to a stair, must use rail Total score: 9 Fall Risk: <19 - high fall risk Interpretation: - Predicts fall risk <19 = high fall risk 19-22 = moderate fall risk > 22 = low fall risk <19/24 = predictive of falls in elderly >22/24 = more likely to be safe ambulator - Brain Injury Score of 0 / 24 has 100% probability of falling Score of 19 / 24 has 28% probability of falling Score of 24 / 24 has 6% probability of falling For more information, please visit: [email or web address] Gait Velocity: Efren scored 0.52 meters/seconds on the Gait Velocity Test (with out AD ), indicating he is a fall risk. Interpretation: - Need for fall risk intervention > 1.0 m/s less likely to have adverse event < 1.0 m/s needs intervention to reduce fall risk - Ambulation Categories Household < 0.4 m/s Limited community ambulator 0.4 m/s to 0.8 m/s Community ambulator 0.8 m/s to 1.2 m/s Speed needed to cross street with normal walking speed > 1.2 or 1.4 m/s For more information, please visit: [email or web address] Functional Endurance good; 96% on RA ROM ROM Testing Results: no range of motion deficits identified Strength delayed initiation of movement, but true strength of L side okay L LE Strength: grossly 4/5 R LE Strength: grossly 5/5 MMT: Hip, Rehab Eval Left Flexion: 4/5 good, left Right Flexion: 5/5 normal, right Left ABduction: 4/5 good, left Right ABduction: 5/5 normal, right Left ADduction: 4/5 good, left Right ADduction: 5/5 normal, right MMT: Knee, Rehab Eval Left Flexion: 4/5 good, left Right Flexion: 5/5 normal, right Left Extension: 4/5 good, left Right Extension: 5/5 normal, right MMT: Ankle, Rehab Eval Left Dorsiflexion: 4/5 good, left Right Dorsiflexion: 5/5 normal, right Left Plantarflexion: 4/5 good, left Right Plantarflexion: 5/5 normal, right [facility] Turning from your back to your side while in a flat bed without using bedrails?: min assist , CGA, SBA, Supervision/a little help Moving from lying on your back to sitting on the side of a flat bed without using bedrails? : min assist, CGA, SBA, Supervision/a little help Standing up from a chair using your arms (e.g. wheelchair, or bedside chair)?: min assist, CGA, SBA, Supervision/a little help Moving to and from a bed to a chair (including a wheelchair)?: min assist, CGA, SBA, Superv ision/a little help To walk in a hospital room?: min assist, CGA, SBA, Supervision/a little of help Climbing 3-5 steps with a railing?: min assist, CGA, SBA, Supervision/a little help Total Basic Mobility Six Click AM-PAC: 18 Completed the [facility] Activity Measure for Post Acute Care (AM-PAC) "6 Clicks" Ba sic Mobility Inpatient Short Form. This version of the AM-PAC is an assessment tool used to measure a person's level of disability in performing basic mobility tasks. Efren's score in dicates a performance of 46.58% impairment in the functioning of basic mobility. Raw Score - Functional Limitation % (for CMS) - "Severity Modifier" CN 6 - 100.00 CM 7 - 92.36 8 - 86.62 9 - 81.38 CL 10 - 76.75 11 - 72.57 12 - 68.66 13 - 64.91 14 - 61.29 CK 15 - 57.70 16 - 54.16 17 - 50.57 18 - 46.58 19 - 41.77 CJ 20 - 35.83 21 - 28.97 22 - 20.91 CI 23 - 11.2 CH 24 - 0.00 Predicted Discharge During Acute Hospitalization (Raw Score) Home = 20.1 With assist = 17.9 SNF = 14 IRF = 13.6 LTAC = 11.5 PT Goal Review Date Most Recent Value STG Review Date 04/16/20 at 04/09/2020 1045 Gait Goal Most Recent Value STG Status new at 04/09/2020 1045 STG Wilcox Level modified independent at 04/09/2020 1045 STG Assistive Device none at 04/09/2020 1045 STG Distance (feet) 500 at 04/09/2020 1045 Additional Goal #1 PT Most Recent Value STG Status new at 04/09/2020 1045 STG Improve DGI to at 04/09/2020 1045 PT Time Calculation Individual Start Time: 1020 Individual Stop Time: 1046 Individual Total Time: 26 Missed Treatment Time: 0 PT Total Treatment Time: 26 Timed TX Code Minutes: 10 Electronically signed by: Gini Myers, PT, 04/09/2020 11:21 AM lan of Martha Yaa hSaw RN - 8:05 AM PDTPatient is alert and oriented x3, disoriented to time. Complains of cont inual headache from hemorrhage, PRN tylenol given with relief. Has a hx of depression, anxie ty and PTSD from being in the but very polite and pleasant, PRN xanax as needed. NI H stroke scale q 4 hours score of 4, left sided weakness and slight L sided facial droop not ed. Ambulates CGA, continent of bowel and bladder. VSS, heart rate can become sandy at night , 3L 02 at night to keep saturation between 94-98%. Denies N/V. Tolerating diet without diff iculty. Remains free from falls, hourly safety rounds completed. Problem: Adult Inpatient Plan of Care Goal: Plan of Care Review Outcome: Ongoing, progressing Goal: Patient-Specific Goal Outcome: Ongoing, progressing Goal: Absence of Hospital-Acquired Illness or Injury Outcome: Ongoing, progressing Goal: Optimal Comfort and Wellbeing Outcome: Ongoing, progressing Goal: Readiness for Transition of Care Outcome: Ongoing, progressing Goal: Rounds/Family Conference Outcome: Ongoing, progressing Problem: Fall Injury Risk Goal: Absence of Fall and Fall-Related Injury Outcome: Ongoing, progressing lan of Care - Liz Falcon 04/08/2020 5:57 PM PDTDischarge Planning: This CM Asst spoke with Efren at his bedside regarding discharge plans. Efren reports he lives with his in their home in [place]. There are 4 steps to enter the home at the front door and 6 steps at the back door. He reports no steps inside the home. The bathroom has a tub shower with a shower chair and a toilet riser. Efren reports previously being independent in his ADL's. He drove. He states he owns a FWW b ut doesnt use it because it gets in the way. He uses a CPAP at night. Efren is a 60% service connected . His PCP is Latasha Barnard at the [facility]. He fills pr escriptions at the [place] and [place] [facility] [facility]. CM will need to follow up with Efren after therapies have worked with him on Tuesday. Dispo: TBD Electronically signed by: Liz Lunsford 04/08/2020 6:11 PM documented in this encou nter Plan of Treatment +--------+---------+ + + + [...] Pathologist | | +--------+---------+ + + + documented as of this encounter Procedures + +--------+ + + + | Procedure Name | Priori | Date/Time | Associated Diagnosis | Comments | | | ty | | | | + +--------+ + + + | POC GLUCOSE | Routin | 04/10/2020 | | Results for this | | | e | 5:05 PM | | procedure are in the | | | | PDT | | results section. | + +--------+ + + + | POC GLUCOSE | Routin | 04/10/2020 | | Results for this | | | e | 11:47 AM | | procedure are in the | | | | PDT | | results section. | + +--------+ + + + | POC GLUCOSE | Routin | 04/10/2020 | | Results for this | | | e | 6:35 AM | | procedure are in the | | | | PDT | | results section. | + +--------+ + + + | CBC WITH | Routin | 04/10/2020 | | Results for this | | DIFFERENTIAL | e | 4:58 AM | | procedure are in the | | | | PDT | | results section. | + +--------+ + + + | MAGNESIUM | Routin | 04/10/2020 | | Results for this | | | e | 4:58 AM | | procedure are in the | | | | PDT | | results section. | + +--------+ + + + | BASIC METABOLIC | Routin | 04/10/2020 | | Results for this | | PANEL | e | 4:58 AM | | procedure are in the | | | | PDT | | results section. | + +--------+ + + + | POC GLUCOSE | Routin | 04/09/2020 | | Results for this | | | e | 8:31 PM | | procedure are in the | | | | PDT | | results section. | + +--------+ + + + | POC GLUCOSE | Routin | 04/09/2020 | | Results for this | | | e | 4:33 PM | | procedure are in the | | | | PDT | | results section. | + +--------+ + + + | ECHO COMPLETE | Routin | 04/09/2020 | | Results for this | | | e | 2:49 PM | | procedure are in the | | | | PDT | | results section. | + +--------+ + + + | POC GLUCOSE | Routin | 04/09/2020 | | Results for this | | | e | 11:58 AM | | procedure are in the | | | | PDT | | results section. | + +--------+ + + + | MRI BRAIN WO | STAT | 04/09/2020 | | Results for this | | CONTRAST | | 8:24 AM | | procedure are in the | | | | PDT | | results section. | + +--------+ + + + | POC GLUCOSE | Routin | 04/09/2020 | | Results for this | | | e | 6:43 AM | | procedure are in the | | | | PDT | | results section. | + +--------+ + + + | LIPID PANEL | Routin | 04/09/2020 | | Results for this | | | e | 4:47 AM | | procedure are in the | | | | PDT | | results section. | + +--------+ + + + | PROTIME INR | Routin | 04/09/2020 | | Results for this | | | e | 4:47 AM | | procedure are in the | | | | PDT | | results section. | + +--------+ + + + | MAGNESIUM | Routin | 04/09/2020 | | Results for this | | | e | 4:47 AM | | procedure are in the | | | | PDT | | results section. | + +--------+ + + + | BASIC METABOLIC | Routin | 04/09/2020 | | Results for this | | PANEL | e | 4:47 AM | | procedure are in the | | | | PDT | | results section. | + +--------+ + + + | CBC WITH | Routin | 04/09/2020 | | Results for this | | DIFFERENTIAL | e | 4:46 AM | | procedure are in the | | | | PDT | | results section. | + +--------+ + + + | HEMOGLOBIN A1C | Routin | 04/09/2020 | | Results for this | | | e | 4:46 AM | | procedure are in the | | | | PDT | | results section. | + +--------+ + + + | CT ANGIOGRAM HEAD | STAT | 04/08/2020 | | Results for this | | NECK ACUTE STROKE | | 5:59 PM | | procedure are in the | | | | PDT | | results section. | + +--------+ + + + | ECG 12 LEAD | STAT | 04/08/2020 | | Results for this | | | | 3:40 PM | | procedure are in the | | | | PDT | | results section. | + +--------+ + + + | CT HEAD WO CONTRAST | STAT | 04/08/2020 | | Results for this | | | | 3:30 PM | | procedure are in the | | | | PDT | | results section. | + +--------+ + + + | CBC W/AUTO | STAT | 04/08/2020 | | Results for this | | DIFFERENTIAL | | 3:28 PM | | procedure are in the | | | | PDT | | results section. | + +--------+ + + + | EXTRA LAVENDER TOP | STAT | 04/08/2020 | | Results for this | | TUBE | | 3:28 PM | | procedure are in the | | | | PDT | | results section. | + +--------+ + + + | EXTRA GREEN TOP TUBE | STAT | 04/08/2020 | | Results for this | | | | 3:28 PM | | procedure are in the | | | | PDT | | results section. | + +--------+ + + + | PROTIME INR | STAT | 04/08/2020 | | Results for this | | | | 3:28 PM | | procedure are in the | | | | PDT | | results section. | + +--------+ + + + | BASIC METABOLIC | STAT | 04/08/2020 | | Results for this | | PANEL | | 3:28 PM | | procedure are in the | | | | PDT | | results section. | + +--------+ + + + | IMAGING REPORT - | | 03/19/2020 | | Results for this | | EXTERNAL SCAN | | 12:00 AM | | procedure are in the | | | | PDT | | results section. | + +--------+ + + + documented in this encounter Results POC Glucose (04/10/2020 5:05 PM PDT) + +-------+ + + + | Component | Value | Ref Range | Performed | Pathologist | | | | | At | Signature | + +-------+ + + + | Glucose, | 109 | 70 - 109 mg/dL | [facility] | | | [facility] | | | [facility] | | | | | | [facility] | | | | | | [facility] - | | | | | | LABORATORY | | + +-------+ + + + + + | Specimen | + + | Blood | + + + + + + + | Performing | Address | City/State/Zipcode | Phone Number | | Organization | | | | + + + + + | [facility] | [address] | [place] | [phone] | | [facility] | | [address] | | | - LABORATORY | | | | + + + + + POC Glucose (04/10/2020 11:47 AM PDT) + +---------+ + + + | Component | Value | Ref Range | Performed | Pathologist | | | | | At | Signature | + +---------+ + + + | Glucose, | 120 (H) | 70 - 109 mg/dL | [facility] | | | [facility] | | | [facility] | | | | | [facility] | | | | | | [facility] - | | | | | | LABORATORY | | + +---------+ + + + + + | Specimen | + + | Blood | + + + + + + + | Performing | Address | City/State/Zipcode | Phone Number | | Organization | | | | + + + + + | [facility] | [address] | [place] | [phone] | | [facility] | | [address] | | | - LABORATORY | | | | + + + + + POC Glucose (04/10/2020 6:35 AM PDT) + +-------+ + + + | Component | Value | Ref Range | Performed | Pathologist | | | | | At | Signature | + +-------+ + + + | Glucose, | 102 | 70 - 109 mg/dL | [facility] | | | POC [facility] | | [facility] | | | | | | [facility] | | | | | | CENTER - | | | | | | LABORATORY | | + +-------+ + + + + + | Specimen | + + | Blood | + + + + + + + | Performing | Address | City/State/Zipcode | Phone Number | | Organization | | | | + + + + + | [facility] | [address] | [place] | [phone] | | [facility] | | [address] | | | - LABORATORY | | | | + + + + + Magnesium (04/10/2020 4:58 AM PDT) + +-------+ + + + | Component | Value | Ref Range | Performed | Pathologist | | | | | At | Signature | + +-------+ + + + | Magnesium | 1.8 | 1.6 - 2.6 mg/dL | [facility] | | | | | | [facility] | | | | | | [facility] | | | | | | CENTER - | | | | | | LABORATORY | | + +-------+ + + + + + | Specimen | + + | Blood | + + + + + + + | Performing | Address | City/State/Zipcode | Phone Number | | Organization | | | | + + + + + | [facility] | [address] | [place] | [phone] | | [facility] | | [address] | | | - LABORATORY | | | | + + + + + Basic Metabolic Panel (04/10/2020 4:58 AM PDT) + + + + + + | Component | Value | Ref Range | Performed | Pathologist | | | | | At | Signature | + + + + + + | Na | 140 | 136 - 145 | [facility] | | | | | mmol/L | [facility] | | | | | | MEDICAL | | | | | | CENTER - | | | | | | LABORATORY | | + + + + + + | K | 4.0 | 3.4 - 5.1 | [facility] | | | | | mmol/L | [facility] | | | | | | MEDICAL | | | | | | CENTER - | | | | | | LABORATORY | | + + + + + + | Cl | 111 (H) | 98 - 107 mmol/L | [facility] | | | | | | [facility] | | | | | | MEDICAL | | | | | | CENTER - | | | | | | LABORATORY | | + + + + + + | CO2 | 26 | 20 - 31 mmol/L | [facility] | | | | | | [facility] | | | | | | MEDICAL | | | | | | CENTER - | | | | | | LABORATORY | | + + + + + + | Anion Gap | 3 | 3 - 16 mmol/L | [facility] | | | | | | [facility] | | | | | | [facility]ICAL | | | | | | CENTER - | | | | | | LABORATORY | | + + + + + + | Glucose | 92 | 60 - 106 mg/dL | [facility] | | | | | | [facility] | | | | | | MEDICAL | | | | | | CENTER - | | | | | | LABORATORY | | + + + + + + | BUN | 11 | 9 - 23 mg/dL | [facility] | | | | | | [facility] | | | | | | [facility]ICAL | | | | | | CENTER - | | | | | | LABORATORY | | + + + + + + | Creatinine | 0.78 | 0.70 - 1.30 | [facility] | | | | | mg/dL | [facility] | | | | | | MEDICAL | | | | | | CENTER - | | | | | | LABORATORY | | + + + + + + | eGFR, | >60Comment: GLOMERULAR | >=60 | [facility] | | | non- | FILTRATION | mL/min/1.73m2 | [facility] | | | [place] | RATE,ESTIMATED | | MEDICAL | | | | mL/min/1.83e9Gwfa than | | CENTER - | | | | 60 Chronic kidney | | LABORATORY | | | | disease,if found over a | | | | | | 3-month period.Less than | | | | | | 15 Kidney failureFor | | | | | | | | | | | | Americans,multiply the | | | | | | calculated GFR by 1.21. | | | | | | | | | | + + + + + + | Calcium | 9.3 | 8.7 - 10.4 | [facility] | | | | | mg/dL | [facility] | | | | | | [facility] | | | | | | CENTER - | | | | | | LABORATORY | | + + + + + + | BUN/Creatin | 14.1 | | [facility] | | | ine Ratio | | | [facility] | | | | | | [facility]ICAL | | | | | | CENTER - | | | | | | LABORATORY | | + + + + + + + + | Specimen | + + | Blood | + + + + + + + | Performing | Address | City/State/Zipcode | Phone Number | | Organization | | | | + + + + + | [facility] | [address] | [place] | [phone] | | [facility] | | [address] | | | - LABORATORY | | | | + + + + + CBC with Differential (04/10/2020 4:58 AM PDT) + +-------+ + + + | Component | Value | Ref Range | Performed | Pathologist | | | | | At | Signature | + +-------+ + + + | White Blood | 6.8 | 4.0 - 11.0 K/uL | [facility] | | | Cells | | | [facility] | | | | | | MEDICAL | | | | | | CENTER - | | | | | | LABORATORY | | + +-------+ + + + | Red Blood | 4.40 | 4.30 - 5.70 | [facility] | | | Cells | | M/uL | [facility] | | | | | | MEDICAL | | | | | | CENTER - | | | | | | LABORATORY | | + +-------+ + + + | Hemoglobin | 14.9 | 13.5 - 18.0 | [facility] | | | | | g/dL | [facility] | | | | | | MEDICAL | | | | | | CENTER - | | | | | | LABORATORY | | + +-------+ + + + | Hematocrit | 43.3 | 40.0 - 51.0 % | [facility] | | | | | | [facility] | | | | | | [facility]ICAL | | | | | | CENTER - | | | | | | LABORATORY | | + +-------+ + + + | MCV | 98.4 | 83.0 - 101.0 fL | [facility] | | | | | | [facility] | | | | | | [facility] | | | | | | CENTER - | | | | | | LABORATORY | | + +-------+ + + + | MCH | 33.9 | 28.0 - 35.0 pg | [facility] | | | | | | [facility] | | | | | | [facility]ICAL | | | | | | CENTER - | | | | | | LABORATORY | | + +-------+ + + + | MCHC | 34.4 | 32.0 - 36.0 | [facility] | | | | | g/dL | [facility] | | | | | | [facility]ICAL | | | | | | CENTER - | | | | | | LABORATORY | | + +-------+ + + + | RDW-CV | 11.4 | <15.0 % | [facility] | | | | | | [facility] | | | | | | [facility] | | | | | | CENTER - | | | | | | LABORATORY | | + +-------+ + + + | RDW-SD | 41.6 | 35.1 - 46.3 fL | [facility] | | | | | | [facility] | | | | | | [facility] | | | | | | CENTER - | | | | | | LABORATORY | | + +-------+ + + + | Platelet | 239 | 140 - 440 K/uL | [facility] | | | Count | | | [facility] | | | | | | [facility]ICAL | | | | | | CENTER - | | | | | | LABORATORY | | + +-------+ + + + | MPV | 9.4 | 6.5 - 12.4 fL | [facility] | | | | | | [facility] | | | | | | [facility]ICAL | | | | | | CENTER - | | | | | | LABORATORY | | + +-------+ + + + | % | 52.3 | 45.0 - 82.0 % | [facility] | | | Neutrophils | | | [facility] | | | | | | [facility]ICAL | | | | | | CENTER - | | | | | | LABORATORY | | + +-------+ + + + | % | 34.7 | 20.0 - 45.0 % | [facility] | | | Lymphocytes | | | [facility] | | | | | | MEDICAL | | | | | | CENTER - | | | | | | LABORATORY | | + +-------+ + + + | % Monocytes | 9.2 | 4.0 - 12.0 % | [facility] | | | | | | [facility] | | | | | | [facility] | | | | | | CENTER - | | | | | | LABORATORY | | + +-------+ + + + | % | 3.3 | 0.0 - 5.0 % | [facility] | | | Eosinophils | | | [facility] | | | | | | MEDICAL | | | | | | CENTER - | | | | | | LABORATORY | | + +-------+ + + + | % Basophils | 0.4 | 0.0 - 1.0 % | [facility] | | | | | | [facility] | | | | | | MEDICAL | | | | | | CENTER - | | | | | | LABORATORY | | + +-------+ + + + | % Immature | 0.1 | 0.0 - 0.4 % | [facility] | | | Granulocyte | | | [facility] | | | s | | | MEDICAL | | | | | | CENTER - | | | | | | LABORATORY | | + +-------+ + + + | Absolute | 3.53 | 1.80 - 8.50 | [facility] | | | Neutrophils | | K/uL | [facility] | | | | | | [facility] | | | | | | CENTER - | | | | | | LABORATORY | | + +-------+ + + + | Absolute | 2.34 | 0.60 - 3.20 | [facility] | | | Lymphocytes | | K/uL | [facility] | | | | | | [facility] | | | | | | CENTER - | | | | | | LABORATORY | | + +-------+ + + + | Absolute | 0.62 | 0.00 - 1.00 | [facility] | | | Monocytes | | K/uL | [facility] | | | | | | MEDICAL | | | | | | CENTER - | | | | | | LABORATORY | | + +-------+ + + + | Absolute | 0.22 | 0.00 - 0.40 | [facility] | | | Eosinophils | | K/uL | [facility] | | | | | | [facility] | | | | | | CENTER - | | | | | | LABORATORY | | + +-------+ + + + | Absolute | 0.03 | 0.00 - 0.10 | [facility] | | | Basophils | | K/uL | [facility] | | | | | | MEDICAL | | | | | | CENTER - | | | | | | LABORATORY | | + +-------+ + + + | Absolute | 0.01 | 0.00 - 0.03 | [facility] | | | Immature | | K/uL | [facility] | | | Granulocyte | | | MEDICAL | | | s | | | CENTER - | | | | | | LABORATORY | | + +-------+ + + + | % nRBC | 0 | 0 - 2 per 100 | [facility] | | | | | WBCs | [facility] | | | | | | [facility] | | | | | | CENTER - | | | | | | LABORATORY | | + +-------+ + + + | Absolute | 0.00 | 0.00 - 0.01 | [facility] | | | nRBC | | K/uL | [facility] | | | | | | [facility] | | | | | | CENTER - | | | | | | LABORATORY | | + +-------+ + + + + + | Specimen | + + | Blood | + + + + + + + | Performing | Address | City/State/Zipcode | Phone Number | | Organization | | | | + + + + + | [facility] | [address] | [place] | [phone] | | [facility] | | [address] | | | - LABORATORY | | | | + + + + + POC Glucose (04/09/2020 8:31 PM PDT) + +-------+ + + + | Component | Value | Ref Range | Performed | Pathologist | | | | | At | Signature | + +-------+ + + + | Glucose, | 104 | 70 - 109 mg/dL | [facility] | | | POC | | | [facility] | | | | | | [facility] | | | | | | CENTER - | | | | | | LABORATORY | | + +-------+ + + + + + | Specimen | + + | Blood | + + + + + + + | Performing | Address | City/State/Zipcode | Phone Number | | Organization | | | | + + + + + | [facility] | [address] | [place] | [phone] | | [facility] | | [address] | | | - LABORATORY | | | | + + + + + POC Glucose (04/09/2020 4:33 PM PDT) + +-------+ + + + | Component | Value | Ref Range | Performed | Pathologist | | | | | At | Signature | + +-------+ + + + | Glucose, | 100 | 70 - 109 mg/dL | [facility] | | | POC | | | [facility] | | | | | | [facility] | | | | | | CENTER - | | | | | | LABORATORY | | + +-------+ + + + + + | Specimen | + + | Blood | + + + + + + + | Performing | Address | City/State/Zipcode | Phone Number | | Organization | | | | + + + + + | [facility] | [address] | [place] | [phone] | | [facility] | | [address] | | | - LABORATORY | | | | + + + + + ECHO Complete (04/09/2020 2:49 PM PDT) + +--------+ + + + | Component | Value | Ref Range | Performed | Pathologist | | | | | At | Signature | + +--------+ + + + | Inferior | 1.72 | cm | [facility] | | | Vena Cava | | | | | | Diameter at | | | | | | Expiration | | | | | + +--------+ + + + | LVIDd | 3.81 | cm | [facility] | | + +--------+ + + + | FS | 20 | % | [facility] | | + +--------+ + + + | LA volume | 60.83 | mL | [facility] | | + +--------+ + + + | Aortic arch | 3.57 | cm | [facility] | | + +--------+ + + + | MV Area by | 3.61 | cm2 | [facility] | | | P 1/2 | | | | | | method | | | | | + +--------+ + + + | LVOT | 2.25 | cm | [facility] | | | diameter | | | | | + +--------+ + + + | LVOT peak | 90.93 | cm/s | [facility] | | | travis | | | | | + +--------+ + + + | AV peak travis | 113 | cm/s | [facility] | | + +--------+ + + + | AV peak | 5.11 | mmHg | [facility] | | | gradient | | | | | + +--------+ + + + | MV Pressure | 60.94 | msec | [facility] | | | 1/2 time | | | | | + +--------+ + + + | LA Volume | 28 | mL/m2 | [facility] | | | Index | | | | | + +--------+ + + + | AV LVOT | 3.31 | mmHg | [facility] | | | Peak | | | | | | Gradient | | | | | + +--------+ + + + | TR Peak | 25 | mmHg | [facility] | | | Gradient | | | | | + +--------+ + + + | RV Free | 14 | cm/s | [facility] | | | Wall Peak | | | | | | S' | | | | | + +--------+ + + + | TR Velocity | 249.33 | cm/s | [facility] | | + +--------+ + + + | RV | 3.56 | cm | [facility] | | | Diastolic | | | | | | Basal | | | | | | Diameter | | | | | + +--------+ + + + | LV | 65 | % | [facility] | | | Mckenna's | | | | | | Biplane EF | | | | | + +--------+ + + + | MV E' | 12.91 | cm/s | [facility] | | | Lateral | | | | | | Velocity | | | | | + +--------+ + + + | MV E' | 11.34 | cm/s | [facility] | | | Septal | | | | | | Velocity | | | | | + +--------+ + + + | MV | 282.7 | cm/s2 | [facility] | | | Deceleratio | | | | | | n [place] | | | | | + +--------+ + + + | MV | 210.15 | msec | [facility] | | | Deceleratio | | | | | | n Time | | | | | + +--------+ + + + | MV E/A | 0.98 | | [facility] | | | Ratio | | | | | + +--------+ + + + | MV Peak | 68.44 | cm/s | [facility] | | | A-Wave | | | | | + +--------+ + + + | MV Peak | 66.98 | cm/s | [facility] | | | E-Wave | | | | | + +--------+ + + + | RA Area | 18 | cm2 | [facility] | | + +--------+ + + + | LA/Aorta | 1.04 | | [facility] | | | Ratio | | | | | + +--------+ + + + | LA Area | 18.92 | cm2 | [facility] | | + +--------+ + + + | LA Systolic | 8.49 | mmHg | [facility] | | | Pressure | | | | | + +--------+ + + + | MV E/E | 5.91 | | [facility] | | | SEPTAL | | | | | + +--------+ + + + | MV E/E | 5.19 | | [facility] | | | LATERAL | | | | | + +--------+ + + + | Vitals | 58 | | [facility] | | | Heart Rate | | | | | | Rest | | | | | + +--------+ + + + | Vitals BP | 111 | | [facility] | | | Systolic | | | | | + +--------+ + + + | Vitals BP | 66 | | [facility] | | | Diastolic | | | | | + +--------+ + + + | Vitals | 175.3 | | [facility] | | | Height | | | | | + +--------+ + + + | Vitals | 104.30 | | [facility] | | | Weight | | | | | + +--------+ + + + | Vitals BSA | 2.19 | | [facility] | | + +--------+ + + + | Vitals BMI | 33.97 | | [facility] | | + +--------+ + + + | Aortic Root | 3.5 | cm | [facility] | | | Diameter | | | | | + +--------+ + + + | IVS | 0.9 | cm | [facility] | | | Diastolic | | | | | | Thickness | | | | | | MM | | | | | + +--------+ + + + | LVPW | 1.12 | cm | [facility] | | | Diastolic | | | | | | Thickness | | | | | | MM | | | | | + +--------+ + + + | IVS | 0.94 | cm | [facility] | | | Systolic | | | | | | Thickness | | | | | | MM | | | | | + +--------+ + + + | LV Systolic | 3.03 | cm | [facility] | | | Diameter | | | | | | MM | | | | | + +--------+ + + + | LVPW | 0.99 | cm | [facility] | | | Systolic | | | | | | Thickness | | | | | | MM | | | | | + +--------+ + + + | LA Systolic | 3.63 | cm | [facility] | | | Diameter | | | | | | MM | | | | | + +--------+ + + + | TAPSE | 2.2 | cm | [facility] | | + +--------+ + + + | LVEF-TTE | 65 | | [facility] | | | TRANSTHORAC | | | | | | IC ECHO | | | | | + +--------+ + + + + + | Specimen | + + | | + + + + + | Narrative | Performed At | + + + | Transthoracic | [facility] | | Echocardiography Report (TTE) Demographics Patient Name JAKI | | | EFREN SANCHEZ Room Number 347 Patient Number | | | [id number] Date of Study 04/09/2020 Visit | | | Number [id number] Referring Physician EUSEBIA | | | LORAINE Washing Machine Repairer | | | JOYCE ROSENBERG [facility] Number Date of 1965 | | | Interpreting SOO AWAN MD | | | Physician 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 Procedure DateDate: 04/09/2020 Start: 02:20 PM Study | | | Location: [facility] Quality: Adequate visualization | | | Indications:Stroke 436/I67.89. Patient Status: Routine Height: 69 | | | inches Weight: 230 pounds BSA: 2.19 m^2 BMI: 33.96 kg/m^2 Rhythm: | | | Sinus bradycardia HR: 54 bpm Conclusions Summary Left ventricle is | | | normal in size and function. Ejection fraction is estimated at 65%. | | | Impaired relaxation compatible with diastolic dysfunction (reversed | | | E/A ratio). Structurally normal tricuspid valve with trace | | | insufficiency and peak velocity consistent with RVSP 30-35 mmHg. No | | | evidence of right to left shunt with agitated saline contrast. | | | Signature | | | | | | Electronically signed by SOO AWAN MD (Interpreting physician) on | | | 04/09/2020 at 05:23 PM | | | | | | Structures Left Atrium LA Dimension: 3.63 cm | | | LA Area: 18.92 cm^2 LA/Aorta: 1.04 | | | LA Systolic Pressure: 8.49 mmHg LA Volume/Index: 60.83 ml /28m^2 | | | Left Atrium Findings Left atrium is borderline enlarged. Left | | | Ventricle Diastolic Dimension: 3.81 cm Systolic | | | Dimension: 3.03 cm Septum Diastolic: 0.9 cm Septum | | | Systolic: 0.94 cm PW Diastolic: 1.12 cm PW | | | Systolic: 0.99 cm EF Estimated: 65% FS: | | | 20.5 % EF Calculated: 65% LVOT Diameter: 2.25 cm Left Ventricle | | | Findings Left ventricle is normal in size and function. Ejection | | | fraction is estimated at 65%. Impaired relaxation compatible with | | | diastolic dysfunction (reversed E/A ratio). Right Atrium | | | RA Area: 18 cm^2 Right Atrium | | | Findings Normal right atrial size. Right Ventricle Diastolic | | | Dimension: 3.56 cm S' velocity wall14 cm/s Right | | | Ventricle Findings Normal right ventricular size and function. TAPSE | | | 2.2 cm MiscellaneousAorta Aortic Root: 3.5 cm | | | Aortic Arch: 3.57 cm LVOT Diameter: 2.25 cm Vena Cava IVC | | | Expirium: 1.72 cm Miscellaneous FindingsAortic root is at the upper | | | limit of normal in size.No evidence of right to left shunt with | | | agitated saline contrast. Pericardium Pericardial Effusion Findings | | | No evidence of pericardial effusion. Pleura Pleural Effusion | | | Findings No evidence of pleural effusion. Valves Mitral Valve Peak | | | E-Wave: 66.98 cm/s Peak A-Wave: 68.44 cm/s | | | P1/2t: 60.9 msec E/A Ratio: 0.98 | | | Deceleration | | | Time: 210.2 msec Area (PHT): 3.61 cm^2 Tissue Doppler E' Septal | | | Velocity: 11.34 cm/s E' Lateral Velocity: 12.91 cm/s Mitral Valve | | | Findings Structurally normal mitral valve without significant stenosis | | | or regurgitation. Aortic Valve Peak Velocity: 113 cm/s Peak | | | Gradient: 5.11 mmHg Aortic Valve Findings Aortic valve is a probable | | | trileaflet valve without significant stenosis or regurgitation. | | | Tricuspid Valve TR Velocity: 249.33 cm/s TR | | | Gradient: 24.87 mmHg Tricuspid Valve Findings Structurally normal | | | tricuspid valve with trace insufficiency and peak velocity consistent | | | with RVSP 30-35 mmHg. Pulmonic Valve Pulmonic Valve Findings Normal | | | pulmonic valve structure and function. Normal pulmonary valve and RVOT | | | flow by color and Doppler flow imaging. LVOT Peak Velocity: 90.93 | | | cm/s Peak Gradient: 3.31 mmHg LVOT Diameter: 2.25 cm | | | | | | Left Atrium Findings | | | Left atrium is borderline enlarged. | | | | | | Left Ventricle | | | | | | Diastolic Dimension: 3.81 cm Systolic Dimension: 3.03 cm | | | Septum Diastolic: 0.9 cm Septum Systolic: 0.94 cm | | | PW Diastolic: 1.12 cm PW Systolic: 0.99 cm | | | EF Estimated: 65% FS: 20.5 % | | | EF Calculated: 65% | | | | | | LVOT Diameter: 2.25 cm | | | | | | Left Ventricle Findings | | | Left ventricle is normal in size and function. Ejection fraction is | | | estimated at 65%. | | | Impaired relaxation compatible with diastolic dysfunction (reversed E/A | | | ratio). | | | | | | Right Atrium | | | | | | RA Area: 18 cm^2 | | | | | | Right Atrium Findings | | | Normal right atrial size. | | | | | | Right Ventricle | | | | | | Diastolic Dimension: 3.56 cm S' velocity wall14 cm/s | | | | | | Right Ventricle Findings | | | Normal right ventricular size and function. | | | TAPSE 2.2 cm | | | | | |Miscellaneous | | |Aorta | | | | | | Aortic Root: 3.5 cm Aortic Arch: 3.57 cm | | | LVOT Diameter: 2.25 cm | | | | | |Vena Cava | | | | | | IVC Expirium: 1.72 cm | | | | | |Miscellaneous Findings | | |Aortic root is at the upper limit of normal in size. | | |No evidence of right to left shunt with agitated saline contrast. | | | | | | Pericardium | | | | | | Pericardial Effusion Findings | | | No evidence of pericardial effusion. | | | | | | Pleura | | | | | | Pleural Effusion Findings | | | No evidence of pleural effusion. | | | | | |Valves | | | | | | Mitral Valve | | | | | | Peak E-Wave: 66.98 cm/s Peak A-Wave: 68.44 cm/s | | | P1/2t: 60.9 msec E/A Ratio: 0.98 | | | Deceleration Time: 210.2 msec | | | Area (PHT): 3.61 cm^2 | | | | | | Tissue Doppler | | | | | | E' Septal Velocity: 11.34 cm/s | | | E' Lateral Velocity: 12.91 cm/s | | | | | | Mitral Valve Findings | | | Structurally normal mitral valve without significant stenosis or | | | regurgitation. | | | | | | Aortic Valve | | | | | | Peak Velocity: 113 cm/s | | | Peak Gradient: 5.11 mmHg | | | | | | Aortic Valve Findings | | | Aortic valve is a probable trileaflet valve without significant stenosis | | | or regurgitation. | | | | | | Tricuspid Valve | | | | | | TR Velocity: 249.33 cm/s TR Gradient: 24.87 mmHg | | | | | | Tricuspid Valve Findings | | | Structurally normal tricuspid valve with trace insufficiency and peak | | | velocity consistent with RVSP 30-35 mmHg. | | | | | | Pulmonic Valve | | | | | | Pulmonic Valve Findings | | | Normal pulmonic valve structure and function. Normal pulmonary valve and | | | RVOT flow by color and Doppler flow imaging. 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 Ejection fraction is estimated at 65%. Impaired | | relaxation compatible with diastolic dysfunction (reversed E/A ratio). Structurally | | normal tricuspid valve with trace insufficiency and peak velocity consistent with RVSP | | 30-35 mmHg. No evidence of right to left shunt with agitated saline contrast. Signature | | | | Structures Left Atrium | | LA Dimension: 3.63 cm LA Area: 18.92 cm^2 LA/Aorta: 1.04 | | LA Systolic Pressure: 8.49 mmHg LA Volume/Index: 60.83 ml /28m^2 Left Atrium | | Findings Left atrium is borderline enlarged. Left Ventricle Diastolic Dimension: 3.81 cm | | Systolic Dimension: 3.03 cm Septum Diastolic: 0.9 cm Septum | | Systolic: 0.94 cm PW Diastolic: 1.12 cm PW Systolic: 0.99 cm EF | | Estimated: 65% FS: 20.5 % EF Calculated: 65% LVOT Diameter: 2.25 cm | | Left Ventricle Findings Left ventricle is normal in size and function. Ejection fraction | | is estimated at 65%. Impaired relaxation compatible with diastolic dysfunction | | (reversed E/A ratio). Right Atrium RA Area: 18 cm^2 | | Right Atrium Findings Normal right atrial size. Right Ventricle Diastolic Dimension: | | 3.56 cm S' velocity wall14 cm/s Right Ventricle Findings Normal right | | ventricular size and function. TAPSE 2.2 cmMiscellaneousAorta Aortic Root: 3.5 cm | | Aortic Arch: 3.57 cm LVOT Diameter: 2.25 cmVena Cava IVC Expirium: 1.72 | | cmMiscellaneous FindingsAortic root is at the upper limit of normal in size.No evidence | | of right to left shunt with agitated saline contrast. Pericardium Pericardial Effusion | | Findings No evidence of pericardial effusion. Pleura Pleural Effusion Findings No | | evidence of pleural effusion.Valves Mitral Valve Peak E-Wave: 66.98 cm/s | | Peak A-Wave: 68.44 cm/s P1/2t: 60.9 msec E/A Ratio: 0.98 | | Deceleration Time: 210.2 msec Area (PHT): 3.61 cm^2 Tissue | | Doppler E' Septal Velocity: 11.34 cm/s E' Lateral Velocity: 12.91 cm/s Mitral Valve | | Findings Structurally normal mitral valve without significant stenosis or regurgitation. | | Aortic Valve Peak Velocity: 113 cm/s Peak Gradient: 5.11 mmHg Aortic Valve Findings | | Aortic valve is a probable trileaflet valve without significant stenosis or | | regurgitation. Tricuspid Valve TR Velocity: 249.33 cm/s TR Gradient: 24.87 | | mmHg Tricuspid Valve Findings Structurally normal tricuspid valve with trace | | insufficiency and peak velocity consistent with RVSP 30-35 mmHg. Pulmonic Valve Pulmonic | | Valve Findings Normal pulmonic valve structure and function. Normal pulmonary valve and | | RVOT flow by color and Doppler flow imaging. LVOT Peak Velocity: 90.93 cm/s Peak | | Gradient: 3.31 mmHg LVOT Diameter: 2.25 cm | | Structurally normal tricuspid valve with trace insufficiency and peak | | velocity consistent with RVSP 30-35 mmHg. | | No evidence of right to left shunt with agitated saline contrast. | | | | Signature | | | | | | | | | | | |Structures | | | | Left Atrium | | | | LA Dimension: 3.63 cm LA Area: 18.92 cm^2 | | LA/Aorta: 1.04 LA Systolic Pressure: 8.49 mmHg | | LA Volume/Index: 60.83 ml /28m^2 | | | | Left Atrium Findings | | Left atrium is borderline enlarged. | | | | Left Ventricle | | | | Diastolic Dimension: 3.81 cm Systolic Dimension: 3.03 cm | | Septum Diastolic: 0.9 cm Septum Systolic: 0.94 cm | | PW Diastolic: 1.12 cm PW Systolic: 0.99 cm | | EF Estimated: 65% FS: 20.5 % | | EF Calculated: 65% | | | | LVOT Diameter: 2.25 cm | | | | Left Ventricle Findings | | Left ventricle is normal in size and function. Ejection fraction is | | estimated at 65%. | | Impaired relaxation compatible with diastolic dysfunction (reversed E/A | | ratio). | | | | Right Atrium | | | | RA Area: 18 cm^2 | | | | Right Atrium Findings | | Normal right atrial size. | | | | Right Ventricle | | | | Diastolic Dimension: 3.56 cm S' velocity wall14 cm/s | | | | Right Ventricle Findings | | Normal right ventricular size and function. | | TAPSE 2.2 cm | | | |Miscellaneous | |Aorta | | | | Aortic Root: 3.5 cm Aortic Arch: 3.57 cm | | LVOT Diameter: 2.25 cm | | | |Vena Cava | | | | IVC Expirium: 1.72 cm | | | |Miscellaneous Findings | |Aortic root is at the upper limit of normal in size. | |No evidence of right to left shunt with agitated saline contrast. | | | | Pericardium | | | | Pericardial Effusion Findings | | No evidence of pericardial effusion. | | | | Pleura | | | | Pleural Effusion Findings | | No evidence of pleural effusion. | | | |Valves | | | | Mitral Valve | | | | Peak E-Wave: 66.98 cm/s Peak A-Wave: 68.44 cm/s | | P1/2t: 60.9 msec E/A Ratio: 0.98 | | Deceleration Time: 210.2 msec | | Area (PHT): 3.61 cm^2 | | | | Tissue Doppler | | | | E' Septal Velocity: 11.34 cm/s | | E' Lateral Velocity: 12.91 cm/s | | | | Mitral Valve Findings | | Structurally normal mitral valve without significant stenosis or | | regurgitation. | | | | Aortic Valve | | | | Peak Velocity: 113 cm/s | | Peak Gradient: 5.11 mmHg | | | | Aortic Valve Findings | | Aortic valve is a probable trileaflet valve without significant stenosis | | or regurgitation. | | | | Tricuspid Valve | | | | TR Velocity: 249.33 cm/s TR Gradient: 24.87 mmHg | | | | Tricuspid Valve Findings | | Structurally normal tricuspid valve with trace insufficiency and peak | | velocity consistent with RVSP 30-35 mmHg. | | | | Pulmonic Valve | | | | Pulmonic Valve Findings | | Normal pulmonic valve structure and function. Normal pulmonary valve and | | RVOT flow by color and Doppler flow imaging. | | | | LVOT | | | | Peak Velocity: 90.93 cm/s | | Peak Gradient: 3.31 mmHg | | LVOT Diameter: 2.25 cm | + + + +---------+ + + | Performing | Address | City/State/Zipcode | Phone Number | | Organization | | | | + +---------+ + + | [facility] | | | | + +---------+ + + POC Glucose (04/09/2020 11:58 AM PDT) + +---------+ + + + | Component | Value | Ref Range | Performed | Pathologist | | | | | At | Signature | + +---------+ + + + | Glucose, | 138 (H) | 70 - 109 mg/dL | [facility] | | | POC | | | [facility] | | | | | | [facility] | | | | | | C[facility] - | | | | | | LABORATORY | | + +---------+ + + + + + | Specimen | + + | Blood | + + + + + + + | Performing | Address | City/State/Zipcode | Phone Number | | Organization | | | | + + + + + | [facility] | [address] | [place] | [phone] | | [facility] | | [address] | | | - LABORATORY | | | | + + + + + MRI Brain wo Contrast (04/09/2020 8:24 AM PDT) + + | Specimen | + + | | + + + + + | Impressions | Performed At | + + + | Right posterior cerebral artery distribution infarction involving | [facility] | | the right occipital lobe, posterior medial right temporal lobe, | | | posterior right corpus callosum, and posterior right thalamus. | | | Nonspecific T2/FLAIR hyperintense periventricular and subcortical | | | white matter findings likely reflect chronic microvascular changes. | | | Chronic basal ganglia lacunar infarctions. Mastoid effusions, | | | left greater than right. Dictated and Signed by: Barrett Hidalgo, | | | Electronically signed: 04/09/2020 9:01 AM | | + + + + + + | Narrative | Performed At | + + + | TECHNIQUE: MRI of the brain with sequences to include sagittal | [facility] | | T1, axial T1, axial diffusion-weighted imaging and ADC maps, axial | | | T2, axial T2 FLAIR, axial susceptibility weighted imaging. | | | CLINICAL INFORMATION: Neuro deficit, acute, stroke suspected | | | COMPARISON: CT dated 04/08/2020 FINDINGS: Orbits have a normal | | | appearance. Mild mucosal thickening at the ethmoid air cells. Left | | | mastoid effusion and fluid in the middle ear. Trace right mastoid | | | effusion. Large area of restricted diffusion involving the | | | distribution of the right posterior cerebral artery including the | | | right occipital lobe, posterior medial right temporal lobe the | | | posterior right corpus callosum, and posterior aspect of the right | | | thalamus. Chronic bilateral basal ganglia lacunar infarctions. | | | Multiple T2/flair hyperintense periventricular and subcortical white | | | matter foci are noted without associated restricted diffusion. | | | Focal susceptibility artifact at the basal ganglia, left greater than | | | right, most compatible with punctate basal ganglia mineralization. No | | | suspicious susceptibility artifact in the area of acute infarction | | | to suggest hemorrhagic conversion. Normal appearance of the | | | ventricles and other CSF spaces. No midline shift. No intracranial | | | hemorrhage or mass lesion. | | + + + + + | Procedure Note | + + | Jose, Rad Results In 04/09/2020 9:04 AM PDT | | TECHNIQUE: MRI of the brain with sequences to include sagittal T1, axial T1, | | axial diffusion-weighted imaging and ADC maps, axial T2, axial T2 FLAIR, axial | | susceptibility weighted imaging. | | | | CLINICAL INFORMATION: Neuro deficit, acute, stroke suspected | | | | COMPARISON: CT dated 04/08/2020 | | | | FINDINGS: | | Orbits have a normal appearance. | | | | Mild mucosal thickening at the ethmoid air cells. Left mastoid effusion and | | fluid in the middle ear. Trace right mastoid effusion. | | | | Large area of restricted diffusion involving the distribution of the right | | posterior cerebral artery including the right occipital lobe, posterior medial | | right temporal lobe the posterior right corpus callosum, and posterior aspect of | | the right thalamus. Chronic bilateral basal ganglia lacunar infarctions. | | Multiple T2/flair hyperintense periventricular and subcortical white matter foci | | are noted without associated restricted diffusion. | | | | Focal susceptibility artifact at the basal ganglia, left greater than right, | | most compatible with punctate basal ganglia mineralization. No suspicious | | susceptibility artifact in the area of acute infarction to suggest hemorrhagic | | conversion. | | | | Normal appearance of the ventricles and other CSF spaces. No midline shift. No | | intracranial hemorrhage or mass lesion. | | | | | | IMPRESSION: | | | | Right posterior cerebral artery distribution infarction involving the right | | occipital lobe, posterior medial right temporal lobe, posterior right corpus | | callosum, and posterior right thalamus. | | | | Nonspecific T2/FLAIR hyperintense periventricular and subcortical white matter | | findings likely reflect chronic microvascular changes. Chronic basal ganglia | | lacunar infarctions. | | | | Mastoid effusions, left greater than right. | | | | Dictated and Signed by: Barrett Hidalgo MD | | Electronically signed: 04/09/2020 9:01 AM | + + + +---------+ + + | Performing | Address | City/State/Zipcode | Phone Number | | Organization | | | | + +---------+ + + | [facility] | | | | + +---------+ + + POC Glucose (04/09/2020 6:43 AM PDT) + +-------+ + + + | Component | Value | Ref Range | Performed | Pathologist | | | | | At | Signature | + +-------+ + + + | Glucose, | 92 | 70 - 109 mg/dL | [facility] | | | POC | | | [facility] | | | | | | [facility]ICAL | | | | | | CENTER - | | | | | | LABORATORY | | + +-------+ + + + + + | Specimen | + + | Blood | + + + + + + + | Performing | Address | City/State/Zipcode | Phone Number | | Organization | | | | + + + + + | [facility] | [address] | [place] | [phone] | | [facility] | | [address] | | | - LABORATORY | | | | + + + + + Lipid Panel (04/09/2020 4:47 AM PDT) + +---------+ + + + | Component | Value | Ref Range | Performed | Pathologist | | | | | At | Signature | + +---------+ + + + | Triglycerid | 152 (H) | <=150 mg/dL | [facility] | | | es | | | [facility] | | | | | | MEDICAL | | | | | | CENTER - | | | | | | LABORATORY | | + +---------+ + + + | Cholesterol | 149 | <=200 mg/dL | [facility] | | | | | | [facility] | | | | | | MEDICAL | | | | | | CENTER - | | | | | | LABORATORY | | + +---------+ + + + | HDL | 28 (L) | 40 - 60 mg/dL | [facility] | | | | | | [facility] | | | | | | MEDICAL | | | | | | CENTER - | | | | | | LABORATORY | | + +---------+ + + + | Chol/HDL | 5.3 | | [facility] | | | Ratio | | | [facility] | | | | | | MEDICAL | | | | | | CENTER - | | | | | | LABORATORY | | + +---------+ + + + | LDL, | 91 | <=130 mg/dL | [facility] | | | Calculated | | | [facility] | | | | | | MEDICAL | | | | | | CENTER - | | | | | | LABORATORY | | + +---------+ + + + + + | Specimen | + + | Blood | + + + + + + + | Performing | Address | City/State/Zipcode | Phone Number | | Organization | | | | + + + + + | [facility] | [address] | [place] | [phone] | | [facility] | | [address] | | | - LABORATORY | | | | + + + + + Protime INR (04/09/2020 4:47 AM PDT) + + + + + + | Component | Value | Ref Range | Performed | Pathologist | | | | | At | Signature | + + + + + + | Prothrombin | 12.8 | 11.3 - 13.9 | [facility] | | | Time | | seconds | [facility] | | | | | | [facility]ICAL | | | | | | CENTER - | | | | | | LABORATORY | | + + + + + + | INR | 0.9Comment: Usual Oral | 0.9 - 1.1 | [facility] | | | | Anticoagulation Range: | | [facility] | | | | 2.0 - 3.0High | | MEDICAL | | | | Level Oral | | CENTER - | | | | Anticoagulation Range: | | LABORATORY | | | | 2.5 - 3.5 | | | | + + + + + + + + | Specimen | + + | Blood | + + + + + + + | Performing | Address | City/State/Zipcode | Phone Number | | Organization | | | | + + + + + | [facility] | [address] | [place] | [phone] | | [facility] | | [address] | | | - LABORATORY | | | | + + + + + Magnesium (04/09/2020 4:47 AM PDT) + +-------+ + + + | Component | Value | Ref Range | Performed | Pathologist | | | | | At | Signature | + +-------+ + + + | Magnesium | 1.9 | 1.6 - 2.6 mg/dL | [facility] | | | | | | [facility] | | | | | | [facility] | | | | | | [facility] - | | | | | | LABORATORY | | + +-------+ + + + + + | Specimen | + + | Blood | + + + + + + + | Performing | Address | City/State/Zipcode | Phone Number | | Organization | | | | + + + + + | [facility] | [address] | [place] | [phone] | | [facility] | | [address] | | | - LABORATORY | | | | + + + + + Basic Metabolic Panel (04/09/2020 4:47 AM PDT) + + + + + + | Component | Value | Ref Range | Performed | Pathologist | | | | | At | Signature | + + + + + + | Na | 140 | 136 - 145 | [facility] | | | | | mmol/L | [facility] | | | | | | MEDICAL | | | | | | CENTER - | | | | | | LABORATORY | | + + + + + + | K | 3.7 | 3.4 - 5.1 | [facility] | | | | | mmol/L | [facility] | | | | | | MEDICAL | | | | | | CENTER - | | | | | | LABORATORY | | + + + + + + | Cl | 109 (H) | 98 - 107 mmol/L | [facility] | | | | | | [facility] | | | | | | MEDICAL | | | | | | CENTER - | | | | | | LABORATORY | | + + + + + + | CO2 | 27 | 20 - 31 mmol/L | [facility] | | | | | | [facility] | | | | | | [facility] | | | | | | [facility] - | | | | | | LABORATORY | | + + + + + + | Anion Gap | 4 | 3 - 16 mmol/L | [facility] | | | | | | [facility] | | | | | [facility] | | | | | | C[facility] - | | | | | | LABORATORY | | + + + + + + | Glucose | 106 | 60 - 106 mg/dL | [facility] | | | | | | [facility] | | | | | | [facility] | | | | | | CENTER - | | | | | | LABORATORY | | + + + + + + | BUN | 11 | 9 - 23 mg/dL | [facility] | | | | | | [facility] | | | | | | MEDICAL | | | | | | CENTER - | | | | | | LABORATORY | | + + + + + + | Creatinine | 0.78 | 0.70 - 1.30 | [facility] | | | | | mg/dL | [facility] | | | | | | MEDICAL | | | | | | CENTER - | | | | | | LABORATORY | | + + + + + + | eGFR, | >60Comment: GLOMERULAR | >=60 | [facility] | | | non- | FILTRATION | mL/min/1.73m2 | [facility] | | | [place] | RATE,ESTIMATED | | MEDICAL | | | | mL/min/1.04x4Pfie than | | CENTER - | | | | 60 Chronic kidney | | LABORATORY | | | | disease,if found over a | | | | | | 3-month period.Less than | | | | | | 15 Kidney failureFor | | | | | | | | | | | | Americans,multiply the | | | | | | calculated GFR by 1.21. | | | | | | | | | | + + + + + + | Calcium | 9.4 | 8.7 - 10.4 | [facility] | | | | | mg/dL | [facility] | | | | | | MEDICAL | | | | | | CENTER - | | | | | | LABORATORY | | + + + + + + | BUN/Creatin | 14.1 | | [facility] | | | ine Ratio | | | [facility] | | | | | | MEDICAL | | | | | | CENTER - | | | | | | LABORATORY | | + + + + + + + + | Specimen | + + | Blood | + + + + + + + | Performing | Address | City/State/Zipcode | Phone Number | | Organization | | | | + + + + + | [facility] | [address] | [place] | [phone] | | [facility] | | [address] | | | - LABORATORY | | | | + + + + + Hemoglobin A1C (04/09/2020 4:46 AM PDT) + +-------+ + + + | Component | Value | Ref Range | Performed | Pathologist | | | | | At | Signature | + +-------+ + + + | Hemoglobin | 5.5 | 4.3 - 6.0 % | [facility] | | | A1c | | | [facility] | [facility] | | | | | | CENTER - | | | | | | LABORATORY | | + +-------+ + + + | Estimated | 111 | mg/dL | [facility] | | | Average | | | [facility] | | | Glucose | | | MEDICAL | | | | | | CENTER - | | | | | | LABORATORY | | + +-------+ + + + + + | Specimen | + + | Blood | + + + + + + + | Performing | Address | City/State/Zipcode | Phone Number | | Organization | | | | + + + + + | [facility] | [address] | [place] | [phone] | | [facility] | | [address] | | | - LABORATORY | | | | + + + + + CBC with Differential (04/09/2020 4:46 AM PDT) + +-------+ + + + | Component | Value | Ref Range | Performed | Pathologist | | | | | At | Signature | + +-------+ + + + | White Blood | 6.8 | 4.0 - 11.0 K/uL | [facility] | | | Cells | | | [facility] | | | | | | MEDICAL | | | | | | CENTER - | | | | | | LABORATORY | | + +-------+ + + + | Red Blood | 4.33 | 4.30 - 5.70 | [facility] | | | Cells | | M/uL | [facility] | | | | | | MEDICAL | | | | | | CENTER - | | | | | | LABORATORY | | + +-------+ + + + | Hemoglobin | 14.7 | 13.5 - 18.0 | [facility] | | | | | g/dL | [facility] | | | | | | MEDICAL | | | | | | CENTER - | | | | | | LABORATORY | | + +-------+ + + + | Hematocrit | 42.1 | 40.0 - 51.0 % | [facility] | | | | | | [facility] | | | | | | MEDICAL | | | | | | CENTER - | | | | | | LABORATORY | | + +-------+ + + + | MCV | 97.2 | 83.0 - 101.0 fL | [facility] | | | | | | [facility] | | | | | | MEDICAL | | | | | | CENTER - | | | | | | LABORATORY | | + +-------+ + + + | MCH | 33.9 | 28.0 - 35.0 pg | [facility] | | | | | | [facility] | | | | | | MEDICAL | | | | | | CENTER - | | | | | | LABORATORY | | + +-------+ + + + | MCHC | 34.9 | 32.0 - 36.0 | [facility] | | | | | g/dL | [facility] | | | | | | MEDICAL | | | | | | CENTER - | | | | | | LABORATORY | | + +-------+ + + + | RDW-CV | 11.4 | <15.0 % | [facility] | | | | | | [facility] | | | | | | MEDICAL | | | | | | CENTER - | | | | | | LABORATORY | | + +-------+ + + + | RDW-SD | 41.4 | 35.1 - 46.3 fL | [facility] | | | | | | [facility] | | | | | | MEDICAL | | | | | | CENTER - | | | | | | LABORATORY | | + +-------+ + + + | Platelet | 250 | 140 - 440 K/uL | [facility] | | | Count | | | [facility] | | | | | | MEDICAL | | | | | | CENTER - | | | | | | LABORATORY | | + +-------+ + + + | MPV | 9.4 | 6.5 - 12.4 fL | [facility] | | | | | | [facility] | | | | | | MEDICAL | | | | | | CENTER - | | | | | | LABORATORY | | + +-------+ + + + | % | 53.7 | 45.0 - 82.0 % | [facility] | | | Neutrophils | | | [facility] | | | | | | MEDICAL | | | | | | CENTER - | | | | | | LABORATORY | | + +-------+ + + + | % | 34.0 | 20.0 - 45.0 % | [facility] | | | Lymphocytes | | | [facility] | | | | | | MEDICAL | | | | | | CENTER - | | | | | | LABORATORY | | + +-------+ + + + | % Monocytes | 8.7 | 4.0 - 12.0 % | [facility] | | | | | | [facility] | | | | | | MEDICAL | | | | | | CENTER - | | | | | | LABORATORY | | + +-------+ + + + | % | 2.9 | 0.0 - 5.0 % | [facility] | | | Eosinophils | | | [facility] | | | | | | MEDICAL | | | | | | CENTER - | | | | | | LABORATORY | | + +-------+ + + + | % Basophils | 0.6 | 0.0 - 1.0 % | [facility] | | | | | | [facility] | | | | | | MEDICAL | | | | | | CENTER - | | | | | | LABORATORY | | + +-------+ + + + | % Immature | 0.1 | 0.0 - 0.4 % | [facility] | | | Granulocyte | | | [facility] | | | s | | | MEDICAL | | | | | | CENTER - | | | | | | LABORATORY | | + +-------+ + + + | Absolute | 3.65 | 1.80 - 8.50 | [facility] | | | Neutrophils | | K/uL | [facility] | | | | | | MEDICAL | | | | | | CENTER - | | | | | | LABORATORY | | + +-------+ + + + | Absolute | 2.31 | 0.60 - 3.20 | [facility] | | | Lymphocytes | | K/uL | [facility] | | | | | | MEDICAL | | | | | | CENTER - | | | | | | LABORATORY | | + +-------+ + + + | Absolute | 0.59 | 0.00 - 1.00 | [facility] | | | Monocytes | | K/uL | [facility] | | | | | | MEDICAL | | | | | | CENTER - | | | | | | LABORATORY | | + +-------+ + + + | Absolute | 0.20 | 0.00 - 0.40 | [facility] | | | Eosinophils | | K/uL | [facility] | | | | | | MEDICAL | | | | | | CENTER - | | | | | | LABORATORY | | + +-------+ + + + | Absolute | 0.04 | 0.00 - 0.10 | [facility] | | | Basophils | | K/uL | [facility] | | | | | | MEDICAL | | | | | | CENTER - | | | | | | LABORATORY | | + +-------+ + + + | Absolute | 0.01 | 0.00 - 0.03 | [facility] | | | Immature | | K/uL | [facility] | | | Granulocyte | | | MEDICAL | | | s | | | CENTER - | | | | | | LABORATORY | | + +-------+ + + + | % nRBC | 0 | 0 - 2 per 100 | [facility] | | | | | WBCs | [facility] | | | | | | MEDICAL | | | | | | CENTER - | | | | | | LABORATORY | | + +-------+ + + + | Absolute | 0.00 | 0.00 - 0.01 | [facility] | | | nRBC | | K/uL | [facility] | | | | | | MEDICAL | | | | | | CENTER - | | | | | | LABORATORY | | + +-------+ + + + + + | Specimen | + + | Blood | + + + + + + + | Performing | Address | City/State/Zipcode | Phone Number | | Organization | | | | + + + + + | [facility] | 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 High-grade and moderate to high-grade | | | narrowing in the intracranial right and left vertebral arteries. | | | No definite posterior communicating arteries. No significant | | | atherosclerotic narrowing in the internal carotid arteries | | | bilaterally. Dictated and Signed by: Mehrdad Lakhani MD | | | Electronically signed: 04/08/2020 6:30 PM | | + + + + + + | Narrative | Performed At | + + + | EXAM: CT ANGIOGRAM HEAD NECK ACUTE STROKE dated 04/08/2020 5:55 PM | [facility] | | HISTORY: Eval stroke work up COMPARISON: Noncontrast head CT | | | performed the same day. TECHNIQUE: Post contrast imaging is | | | performed through the head and neck vasculature following the | | | arterial timed injection of 120 ml of Omnipaque 350. Images are | | | reconstructed. DOSE: DLP 590.29 mGy per centimeter FINDINGS: | | | HEAD CTA: Focal high-grade narrowing in the intracranial | | | right vertebral artery. Focal moderate to severe narrowing in the | | | intracranial left vertebral artery. There is a patent right | | | posterior inferior cerebellar artery. There is a patent left | | | anterior inferior cerebellar artery. Basilar artery is widely | | | patent. Superior cerebellar arteries are patent bilaterally. The | | | left posterior cerebral artery is diffusely diseased but patent. | | | The right posterior cerebral artery is patent for approximately 1 | | | cm. It is then occluded. No definite posterior communicating | | | arteries. The intracranial internal carotid arteries are patent | | | bilaterally. There is diffuse disease through the cavernous portions | | | with mostly mild narrowing. There is a focal area of mild to | | | moderate narrowing in the distal right cavernous internal carotid | | | artery. The middle cerebral arteries are patent. The anterior | | | cerebral arteries are patent. There is diffuse mild disease in the | | | right A1 segment. There is a patent anterior communicating artery. | | | NECK CTA: Aorta: No aneurysmal dilatation or dissection in the | | | visible portion of the aortic arch. There is mild disease in mild | | | narrowing in the proximal brachiocephalic artery. There is mild | | | disease in mild narrowing in the proximal right subclavian artery. | | | The visible right axillary artery is patent. There is mild | | | disease in narrowing in the proximal several centimeters of the left | | | subclavian artery. The visible left axillary artery is patent. | | | Right: Mild disease in mild narrowing in the proximal, carotid artery. | | | Mild disease in mild narrowing (less than 50% narrowing based on | | | NASCET criteria) in the internal carotid artery. The right | | | vertebral artery is codominant. It is patent at its origin. It is | | | patent throughout its extracranial extent. Left: Mild disease in | | | the left common carotid artery. Mild disease in the internal | | | carotid artery. No significant narrowing. The left vertebral | | | artery is codominant. It is patent at its origin through its | | | extracranial extent. NONVASCULAR: No abnormal parenchymal | | | enhancement. No mass effect upon the airway. No cervical | | | lymphadenopathy. No visible salivary gland mass. There is mild | | | diffuse enlargement of the thyroid without definite focal thyroid | | | disease. Emphysematous changes are present in the upper lungs | | | bilaterally. Anterior cervical discectomy and fusion changes at | | | C5, C6, and C7. | | + + + + + | Procedure Note | + + | Jose, Rad Results In - 04/08/2020 6:33 PM PDT EXAM: CT ANGIOGRAM HEAD NECK ACUTE | | STROKE dated 04/08/2020 5:55 PMHISTORY: Eval stroke work upCOMPARISON: Noncontrast head | | CT performed the same day.TECHNIQUE: Post contrast imaging is performed through the | | head and neckvasculature following the arterial timed injection of 120 ml of Omnipaque | | 350. Images are reconstructed.DOSE: DLP 590.29 mGy per centimeterFINDINGS: HEAD | | CTA:Focal high-grade narrowing in the intracranial right vertebral artery. | | Focalmoderate to severe narrowing in the intracranial left vertebral artery. Thereis a | | patent right posterior inferior cerebellar artery. There is a patent leftanterior | | inferior cerebellar artery. Basilar artery is widely patent. Superiorcerebellar | | arteries are patent bilaterally. The left posterior cerebral arteryis diffusely | | diseased but patent. The right posterior cerebral artery is patentfor approximately 1 | | cm. It is then occluded. No definite posteriorcommunicating arteries. The | | intracranial internal carotid arteries are patentbilaterally. There is diffuse disease | | through the cavernous portions withmostly mild narrowing. There is a focal area of mild | | to moderate narrowing inthe distal right cavernous internal carotid artery. The middle | | cerebralarteries are patent. The anterior cerebral arteries are patent. There | | isdiffuse mild disease in the right A1 segment. There is a patent anteriorcommunicating | | artery.NECK CTA:Aorta: No aneurysmal dilatation or dissection in the visible portion of | | theaortic arch. There is mild disease in mild narrowing in the proximalbrachiocephalic | | artery. There is mild disease in mild narrowing in the proximalright subclavian | | artery. The visible right axillary artery is patent. There ismild disease in narrowing | | in the proximal several centimeters of the leftsubclavian artery. The visible left | | axillary artery is patent.Right: Mild disease in mild narrowing in the proximal, carotid | | artery. Milddisease in mild narrowing (less than 50% narrowing based on NASCET | | criteria) inthe internal carotid artery. The right vertebral artery is codominant. It | | ispatent at its origin. It is patent throughout its extracranial extent.Left: Mild | | disease in the left common carotid artery. Mild disease in theinternal carotid artery. | | No significant narrowing. The left vertebral arteryis codominant. It is patent at its | | origin through its extracranial extent.NONVASCULAR:No abnormal parenchymal enhancement. | | No mass effect upon the airway. Nocervical lymphadenopathy. No visible salivary | | gland mass. There is milddiffuse enlargement of the thyroid without definite focal | | thyroid disease. Emphysematous changes are present in the upper lungs | | bilaterally.Anterior cervical discectomy and fusion changes at C5, C6, and | | C7.IMPRESSION: Occlusion of the right posterior cerebral artery approximately 1 cm from | | itsorigin.High-grade and moderate to high-grade narrowing in the intracranial right | | andleft vertebral arteries.No definite posterior communicating arteries.No significant | | atherosclerotic narrowing in the internal carotid arteriesbilaterally.Dictated and | | Signed by: Mehrdad Lakhani MD Electronically signed: 04/08/2020 6:30 PM | |subclavian artery. The visible left axillary artery is patent. | | | |Right: Mild disease in mild narrowing in the proximal, carotid artery. Mild | |disease in mild narrowing (less than 50% narrowing based on NASCET criteria) in | |the internal carotid artery. The right vertebral artery is codominant. It is | |patent at its origin. It is patent throughout its extracranial extent. | | | |Left: Mild disease in the left common carotid artery. Mild disease in the | |internal carotid artery. No significant narrowing. The left vertebral artery | |is codominant. It is patent at its origin through its extracranial extent. | | | |NONVASCULAR: | | | |No abnormal parenchymal enhancement. No mass effect upon the airway. No | |cervical lymphadenopathy. No visible salivary gland mass. There is mild | |diffuse enlargement of the thyroid without definite focal thyroid disease. | |Emphysematous changes are present in the upper lungs bilaterally. | | | |Anterior cervical discectomy and fusion changes at C5, C6, and C7. 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 | | | |High-grade and moderate to high-grade narrowing in the intracranial right and | |left vertebral arteries. | | | |No definite posterior communicating arteries. | | | |No significant atherosclerotic narrowing in the internal carotid arteries | |bilaterally. | | | |Dictated and Signed by: Mehrdad Lakhani MD | | Electronically signed: 04/08/2020 6:30 PM | + + + +---------+ + + | Performing | Address | City/State/Zipcode | Phone Number | | Organization | | | | + +---------+ + + | [facility] | | | | + +---------+ + + ECG 12 lead (04/08/2020 3:40 PM PDT) + + + + + + | Component | Value | Ref Range | Performed | Pathologist | | | | | At | Signature | + + + + + + | VENTRICULAR | 52 | BPM | [facility] | | | RATE EKG | | | | | + + + + + + | ATRIAL RATE | 52 | BPM | [facility] | | + + + + + + | P-R | 160 | ms | [facility] | | | INTERVAL | | | | | + + + + + + | QRS | 94 | ms | [facility] | | | DURATION | | | | | + + + + + + | Q-T | 466 | ms | [facility] | | | INTERVAL | | | | | + + + + + + | Q-T | 433 | ms | [facility] | | | INTERVAL | | | | | | (CORRECTED) | | | | | + + + + + + | P WAVE AXIS | 59 | degrees | [facility] | | + + + + + + | QRS AXIS | -16 | degrees | [facility] | | + + + + + + | T AXIS | 17 | degrees | [facility] | | + + + + + + | INTERPRETAT | Sinus | | [facility] | | | ION TEXT | bradycardiaInferior | | | | | | infarct , age | | | | | | undeterminedAbnormal | | | | | | ECGNo previous ECGs | | | | | | availableConfirmed by | | | | | | ACACIA MARINO MD ([id number]) | | | | | | on 04/09/2020 6:09:47 AM | | | | + + + + + + + + | Specimen | + + | | + + + + + | Narrative | Performed At | + + + | | | + + + + +---------+ + + | Performing | Address | City/State/Zipcode | Phone Number | | Organization | | | | + +---------+ + + | [facility] | | | | + +---------+ + + CT Head wo Contrast (04/08/2020 3:30 PM PDT) + + | Specimen | + + | | + + + + + | Impressions | Performed At | + + + | Findings in the right occipital and temporal lobes consistent | [facility] | | with the history of subacute ischemia and probable cortical | | | mineralization. Encephalomalacia in the left cerebellar hemisphere | | | is diffusely with a chronic infarct. Bilateral white matter | | | disease. Left otitis media. Dictated and Signed by: | | | Mehrdad Lakhani MD Electronically signed: 04/08/2020 4:09 PM | | + + + + + + | Narrative | Performed At | + + + | EXAM: CT HEAD WO CONTRAST dated 04/08/2020 3:27 PM HISTORY: | [facility] | | Emergent Patient - see comments Pain Comparison: None. | | | TECHNIQUE: Noncontrast CT is performed from the top of calvarium | | | through the skull base. Coronal and sagittal reformats are | | | performed. DOSE: DLP 735.38 mGy-cm FINDINGS: BRAIN: No | | | significant cerebral or cerebellar atrophy. There is some subtle | | | gyral hyperintensity in portions of the right occipital lobe and | | | medial temporal lobe. There is a prominent area of hypoattenuation | | | in some loss of shah-white differentiation throughout this same | | | region. There is no associated mass effect. There are areas of | | | hypoattenuation in the periventricular white matter of both frontal | | | lobes. There is a focal area of hypodensity in the left cerebellar | | | hemisphere that may be encephalomalacia. There is appropriate size | | | and configuration of the ventricles. Bilateral basal ganglia | | | mineralization. Calcified disease in the cavernous carotids and | | | posterior circulation. SCALP/ CALVARIUM: The scalp and skull are | | | intact and are unremarkable. SINUSES / ORBITS/ MASTOIDS: There is | | | a small amount of opacification in the inferior right mastoid air | | | cells. There is diffuse opacification throughout the left middle | | | ear. There is mild mucosal thickening in the ethmoid air cells. | | | There are chronic appearing changes along the upper right maxillary | | | sinus. The globes and retrobulbar structures are symmetric and | | | unremarkable. | | + + + + + | Procedure Note | + + | Jose, Rad Results In - 04/08/2020 4:12 PM PDT EXAM: CT HEAD WO CONTRAST dated | | 04/08/2020 3:27 PMHISTORY: Emergent Patient - see commentsPainComparison: | | None.TECHNIQUE: Noncontrast CT is performed from the top of calvarium through theskull | | base. Coronal and sagittal reformats are performed.DOSE: DLP 735.38 mGy-cmFINDINGS: | | BRAIN: No significant cerebral or cerebellar atrophy. There is some subtlegyral | | hyperintensity in portions of the right occipital lobe and medial temporallobe. There | | is a prominent area of hypoattenuation in some loss of shah-whitedifferentiation | | throughout this same region. There is no associated masseffect. There are areas of | | hypoattenuation in the periventricular white matterof both frontal lobes. There is a | | focal area of hypodensity in the leftcerebellar hemisphere that may be encephalomalacia. | | There is appropriate sizeand configuration of the ventricles. Bilateral basal ganglia | | mineralization. Calcified disease in the cavernous carotids and posterior | | circulation.SCALP/ CALVARIUM: The scalp and skull are intact and are | | unremarkable.SINUSES / ORBITS/ MASTOIDS: There is a small amount of opacification in | | theinferior right mastoid air cells. There is diffuse opacification throughout theleft | | middle ear. There is mild mucosal thickening in the ethmoid air cells. There are | | chronic appearing changes along the upper right maxillary sinus. Theglobes and | | retrobulbar structures are symmetric and unremarkable.IMPRESSION: Findings in the right | | occipital and temporal lobes consistent with the historyof subacute ischemia and | | probable cortical mineralization.Encephalomalacia in the left cerebellar hemisphere is | | diffusely with a chronicinfarct.Bilateral white matter disease.Left otitis | | media.Dictated and Signed by: Mehrdad Lakhani MD Electronically signed: 04/08/2020 4:09 | | PM | | | |SCALP/ CALVARIUM: The scalp and skull are intact and are unremarkable. | | | |SINUSES / ORBITS/ MASTOIDS: There is a small amount of opacification in the | |inferior right mastoid air cells. There is diffuse opacification throughout the | |left middle ear. There is mild mucosal thickening in the ethmoid air cells. | |There are chronic appearing changes along the upper right maxillary sinus. The | |globes and retrobulbar structures are symmetric and unremarkable. | | | |IMPRESSION: | | | |Findings in the right occipital and temporal lobes consistent with the history | |of subacute ischemia and probable cortical mineralization. | | | |Encephalomalacia in the left cerebellar hemisphere is diffusely with a chronic | |infarct. | | | |Bilateral white matter disease. | | | |Left otitis media. | | | | | | | |Dictated and Signed by: Mehrdad Lakhani MD | | Electronically signed: 04/08/2020 4:09 PM | + + + +---------+ + + | Performing | Address | City/State/Zipcode | Phone Number | | Organization | | | | + +---------+ + + | [facility] | | | | + +---------+ + + Extra Green Top Tube (04/08/2020 3:28 PM PDT) + +-------+ + + + | Component | Value | Ref Range | Performed | Pathologist | | | | | At | Signature | + +-------+ + + + | Extra Green | Done | | [facility] | | | Top Tube | | | [facility] | | | | | | [facility]ICAL | | | | | | CENTER - | | | | | | LABORATORY | | + +-------+ + + + + + | Specimen | + + | Blood | + + + + + + + | Performing | Address | City/State/Zipcode | Phone Number | | Organization | | | | + + + + + | [facility] | [address] | [place] | [phone] | | [facility] | | [address] | | | - LABORATORY | | | | + + + + + Extra Lavender Top Tube (04/08/2020 3:28 PM PDT) + +-------+ + + + | Component | Value | Ref Range | Performed | Pathologist | | | | | At | Signature | + +-------+ + + + | Extra | Done | | [facility] | | | [facility] | | | [facility] | | | [facility] | | | [facility] | | | | | | CENTER - | | | | | | LABORATORY | | + +-------+ + + + + + | Specimen | + + | Blood | + + + + + + + | Performing | Address | City/State/Zipcode | Phone Number | | Organization | | | | + + + + + | [facility] | [address] | [place] | [phone] | | [facility] | | [address] | | | - LABORATORY | | | | + + + + + Protime INR (04/08/2020 3:28 PM PDT) + + + + + + | Component | Value | Ref Range | Performed | Pathologist | | | | | At | Signature | + + + + + + | Prothrombin | 13.4 | 11.3 - 13.9 | [facility] | | | Time | | seconds | [facility] | | | | | | MEDICAL | | | | | | CENTER - | | | | | | LABORATORY | | + + + + + + | INR | 1.0Comment: Usual Oral | 0.9 - 1.1 | [facility] | | | | Anticoagulation Range: | | [facility] | | | | 2.0 - 3.0High | | MEDICAL | | | | Level Oral | | CENTER - | | | | Anticoagulation Range: | | LABORATORY | | | | 2.5 - 3.5 | | | | + + + + + + + + | Specimen | + + | Blood | + + + + + + + | Performing | Address | City/State/Zipcode | Phone Number | | Organization | | | | + + + + + | [facility] | [address] | [place] | [phone] | | [facility] | | [address] | | | - LABORATORY | | | | + + + + + Basic Metabolic Panel (04/08/2020 3:28 PM PDT) + + + + + + | Component | Value | Ref Range | Performed | Pathologist | | | | | At | Signature | + + + + + + | Na | 139 | 136 - 145 | [facility] | | | | | mmol/L | [facility] | | | | | | MEDICAL | | | | | | CENTER - | | | | | | LABORATORY | | + + + + + + | K | 3.9 | 3.4 - 5.1 | [facility] | | | | | mmol/L | [facility] | | | | | | MEDICAL | | | | | | CENTER - | | | | | | LABORATORY | | + + + + + + | Cl | 106 | 98 - 107 mmol/L | [facility] | | | | | | [facility] | | | | | | MEDICAL | | | | | | CENTER - | | | | | | LABORATORY | | + + + + + + | CO2 | 30 | 20 - 31 mmol/L | [facility] | | | | | | [facility] | | | | | | MEDICAL | | | | | | CENTER - | | | | | | LABORATORY | | + + + + + + | Anion Gap | 3 | 3 - 16 mmol/L | [facility] | | | | | | [facility] | | | | | | MEDICAL | | | | | | CENTER - | | | | | | LABORATORY | | + + + + + + | Glucose | 82 | 60 - 106 mg/dL | [facility] | | | | | | [facility] | | | | | | MEDICAL | | | | | | CENTER - | | | | | | LABORATORY | | + + + + + + | BUN | 13 | 9 - 23 mg/dL | [facility] | | | | | | [facility] | | | | | | MEDICAL | | | | | | CENTER - | | | | | | LABORATORY | | + + + + + + | Creatinine | 0.85 | 0.70 - 1.30 | [facility] | | | | | mg/dL | [facility] | | | | | | MEDICAL | | | | | | CENTER - | | | | | | LABORATORY | | + + + + + + | eGFR, | >60Comment: GLOMERULAR | >=60 | [facility] | | | non- | FILTRATION | mL/min/1.73m2 | [facility] | | | [place] | RATE,ESTIMATED | | MEDICAL | | | | mL/min/1.07f9Meii than | | CENTER - | | | | 60 Chronic kidney | | LABORATORY | | | | disease,if found over a | | | | | | 3-month period.Less than | | | | | | 15 Kidney failureFor | | | | | | | | | | | | Americans,multiply the | | | | | | calculated GFR by 1.21. | | | | | | | | | | + + + + + + | Calcium | 9.8 | 8.7 - 10.4 | [facility] | | | | | mg/dL | [facility] | | | | | | MEDICAL | | | | | | CENTER - | | | | | | LABORATORY | | + + + + + + | BUN/Creatin | 15.3 | | [facility] | | | ine Ratio | | | [facility] | | | | | | MEDICAL | | | | | | CENTER - | | | | | | LABORATORY | | + + + + + + + + | Specimen | + + | Blood | + + + + + + + | Performing | Address | City/State/Zipcode | Phone Number | | Organization | | | | + + + + + | [facility] | [address] | [place] | [phone] | | [facility] | | [address] | | | - LABORATORY | | | | + + + + + CBC w/ Auto Differential (04/08/2020 3:28 PM PDT) + +-------+ + + + | Component | Value | Ref Range | Performed | Pathologist | | | | | At | Signature | + +-------+ + + + | White Blood | 6.9 | 4.0 - 11.0 K/uL | [facility] | | | Cells | | | [facility] | | | | | | MEDICAL | | | | | | CENTER - | | | | | | LABORATORY | | + +-------+ + + + | Red Blood | 4.32 | 4.30 - 5.70 | [facility] | | | Cells | | M/uL | [facility] | | | | | | MEDICAL | | | | | | CENTER - | | | | | | LABORATORY | | + +-------+ + + + | Hemoglobin | 14.8 | 13.5 - 18.0 | [facility] | | | | | g/dL | [facility] | | | | | | MEDICAL | | | | | | CENTER - | | | | | | LABORATORY | | + +-------+ + + + | Hematocrit | 42.1 | 40.0 - 51.0 % | [facility] | | | | | | [facility] | | | | | | [facility]ICAL | | | | | | CENTER - | | | | | | LABORATORY | | + +-------+ + + + | MCV | 97.5 | 83.0 - 101.0 fL | [facility] | | | | | | [facility] | | | | | | MEDICAL | | | | | | CENTER - | | | | | | LABORATORY | | + +-------+ + + + | MCH | 34.3 | 28.0 - 35.0 pg | [facility] | | | | | | [facility] | | | | | | MEDICAL | | | | | | CENTER - | | | | | | LABORATORY | | + +-------+ + + + | MCHC | 35.2 | 32.0 - 36.0 | [facility] | | | | | g/dL | [facility] | | | | | | MEDICAL | | | | | | CENTER - | | | | | | LABORATORY | | + +-------+ + + + | RDW-CV | 11.7 | <15.0 % | [facility] | | | | | | [facility] | | | | | | MEDICAL | | | | | | CENTER - | | | | | | LABORATORY | | + +-------+ + + + | RDW-SD | 42.4 | 35.1 - 46.3 fL | [facility] | | | | | | [facility] | | | | | | MEDICAL | | | | | | CENTER - | | | | | | LABORATORY | | + +-------+ + + + | Platelet | 253 | 140 - 440 K/uL | [facility] | | | Count | | | [facility] | | | | | | MEDICAL | | | | | | CENTER - | | | | | | LABORATORY | | + +-------+ + + + | MPV | 9.1 | 6.5 - 12.4 fL | [facility] | | | | | | [facility] | | | | | | MEDICAL | | | | | | CENTER - | | | | | | LABORATORY | | + +-------+ + + + | % | 50.0 | 45.0 - 82.0 % | [facility] | | | Neutrophils | | | [facility] | | | | | | MEDICAL | | | | | | CENTER - | | | | | | LABORATORY | | + +-------+ + + + | % | 36.6 | 20.0 - 45.0 % | [facility] | | | Lymphocytes | | | [facility] | | | | | | MEDICAL | | | | | | CENTER - | | | | | | LABORATORY | | + +-------+ + + + | % Monocytes | 9.5 | 4.0 - 12.0 % | [facility] | | | | | | [facility] | | | | | | MEDICAL | | | | | | CENTER - | | | | | | LABORATORY | | + +-------+ + + + | % | 3.2 | 0.0 - 5.0 % | [facility] | | | Eosinophils | | | [facility] | | | | | | MEDICAL | | | | | | CENTER - | | | | | | LABORATORY | | + +-------+ + + + | % Basophils | 0.6 | 0.0 - 1.0 % | [facility] | | | | | | [facility] | | | | | | MEDICAL | | | | | | CENTER - | | | | | | LABORATORY | | + +-------+ + + + | % Immature | 0.1 | 0.0 - 0.4 % | [facility] | | | Granulocyte | | | [facility] | | | s | | | MEDICAL | | | | | | CENTER - | | | | | | LABORATORY | | + +-------+ + + + | Absolute | 3.47 | 1.80 - 8.50 | [facility] | | | Neutrophils | | K/uL | [facility] | | | | | | MEDICAL | | | | | | CENTER - | | | | | | LABORATORY | | + +-------+ + + + | Absolute | 2.54 | 0.60 - 3.20 | [facility] | | | Lymphocytes | | K/uL | [facility] | | | | | | MEDICAL | | | | | | CENTER - | | | | | | LABORATORY | | + +-------+ + + + | Absolute | 0.66 | 0.00 - 1.00 | [facility] | | | Monocytes | | K/uL | [facility] | | | | | | MEDICAL | | | | | | CENTER - | | | | | | LABORATORY | | + +-------+ + + + | Absolute | 0.22 | 0.00 - 0.40 | [facility] | | | Eosinophils | | K/uL | [facility] | | | | | | MEDICAL | | | | | | CENTER - | | | | | | LABORATORY | | + +-------+ + + + | Absolute | 0.04 | 0.00 - 0.10 | [facility] | | | Basophils | | K/uL | [facility] | | | | | | MEDICAL | | | | | | CENTER - | | | | | | LABORATORY | | + +-------+ + + + | Absolute | 0.01 | 0.00 - 0.03 | [facility] | | | Immature | | K/uL | [facility] | | | Granulocyte | | | MEDICAL | | | s | | | CENTER - | | | | | | LABORATORY | | + +-------+ + + + | % nRBC | 0 | 0 - 2 per 100 | [facility] | | | | | WBCs | [facility] | | | | | | MEDICAL | | | | | | CENTER - | | | | | | LABORATORY | | + +-------+ + + + | Absolute | 0.00 | 0.00 - 0.01 | [facility] | | | nRBC | | K/uL | [facility] | [facility] | | | | | | CENTER - | | | | | | LABORATORY | | + +-------+ + + + + + | Specimen | + + | Blood | + + + + + + + | Performing | Address | City/State/Zipcode | Phone Number | | Organization | | | | + + + + + | [facility] | [address] | [place] | [phone] | | [facility] | | [address] | | | - LABORATORY | | | | + + + + + IMAGING REPORT - EXTERNAL SCAN (03/19/2020 12:00 AM PDT) + + + | Narrative | Performed At | + + + | Ordered by an | | | unspecified provider. | | + + + documented in this encounter Visit Diagnoses + + | Diagnosis | + + | Cerebrovascular accident (CVA), unspecified mechanism (HCC) - Primary | + + | Ischemic cerebrovascular accident (CVA) (HCC) | + + | Hypertension Unspecified essential hypertension | + + | Tobacco abuse Tobacco use disorder | + + documented in this encounter Administered Medications + +--------+---------+------+------+------+ | Medication Order | MAR | Action | Dose | Rate | Site | | | Action | Date | | | | + +--------+---------+------+------+------+ + +---+ | acetaminophen (TYLENOL) 160 | | | mg/5 mL liquid 650 mg 650 mg, | | | Per NG tube, EVERY 4 HOURS PRN, | | | Pain, Fever, temperature > or | | | equal to 38.0 C (100.4 F), | | | Starting 04/08/20 at 2107 | | + +---+ | | | + +---+ | acetaminophen (TYLENOL) | | | suppository 650 mg 650 mg, | | | Rectal, EVERY 4 HOURS PRN, Pain, | | | Fever, temperature > or equal to | | | 38.0 C (100.4 F), Starting Tue | | | 04/08/20 at 2107, If unable to | | | take oral., | | + +---+ | | | + +---+ + +-------+ +--------+---+---+ | acetaminophen (TYLENOL) tablet | Given | 04/09/20 | 650 mg | | | | 650 mg 650 mg, Oral, EVERY 4 | | 20 5:16 | | | | | HOURS PRN, Pain, Fever, | | PM PDT | | | | | temperature > or equal to 38.0 C | | | | | | | (100.4 F), Starting 04/08/20 | | | | | | | at 2107 | | | | | | + +-------+ +--------+---+---+ +-------+ +--------+---+---+ | Given | 04/09/20 | 650 mg | | | | | 20 8:01 | | | | | | AM PDT | | | | +-------+ +--------+---+---+ | Given | 04/08/20 | 650 mg | | | | | 20 10:55 | | | | | | PM PDT | | | | +-------+ +--------+---+---+ +---+---+ | | | +---+---+ + +-------+ +--------+---+---+ | ALPRAZolam (XANAX) tablet 0.5 | Given | 04/08/20 | 0.5 mg | | | | mg 0.5 mg, Oral, 3 TIMES DAILY | | 20 10:57 | | | | | PRN, Anxiety, Starting Tue | | PM PDT | | | | | 04/08/20 at 1750 | | | | | | + +-------+ +--------+---+---+ +-------+ +--------+---+---+ | Given | 04/08/20 | 0.5 mg | | | | | 20 5:53 | | | | | | PM PDT | | | | +-------+ +--------+---+---+ +---+---+ | | | +---+---+ + +-------+ +-------+---+---+ | aspirin EC tablet 81 mg 81 mg, | Given | 04/10/20 | 81 mg | | | | Oral, DAILY, First dose on Tue | | 20 9:19 | | | | | 04/09/20 at 0900 | | AM PDT | | | | + +-------+ +-------+---+---+ +-------+ +-------+---+---+ | Given | 04/09/20 | 81 mg | | | | | 20 8:59 | | | | | | AM PDT | | | | +-------+ +-------+---+---+ +---+---+ | | | +---+---+ + +-------+ +--------+---+---+ | aspirin tablet 325 mg 325 mg, | Given | 04/08/20 | 325 mg | | | | Oral, ONCE, Tue04/08/20 at 1725, | | 20 5:47 | | | | | For 1 dose | | PM PDT | | | | + +-------+ +--------+---+---+ +---+---+ | | | +---+---+ + +-------+ +-------+---+---+ | atorvaSTATin (LIPITOR) tablet | Given | 04/09/20 | 80 mg | | | | 80 mg 80 mg, Oral, NIGHTLY, | | 20 8:13 | | | | | First dose on Tue04/08/20 at 2130 | | PM PDT | | | | + +-------+ +-------+---+---+ +-------+ +-------+---+---+ | Given | 04/08/20 | 80 mg | | | | | 20 11:02 | | | | | | PM PDT | | | | +-------+ +-------+---+---+ +---+---+ | | | +---+---+ + +-------+ +-------+---+---+ | busPIRone (BUSPAR) tablet 15 mg | Given | 04/10/20 | 15 mg | | | | 15 mg, Oral, 2 TIMES DAILY, | | 20 9:19 | | | | | First dose on Tue04/08/20 at 2130 | | AM PDT | | | | + +-------+ +-------+---+---+ +-------+ +-------+---+---+ | Given | 04/09/20 | 15 mg | | | | | 20 8:14 | | | | | | PM PDT | | | | +-------+ +-------+---+---+ | Given | 04/09/20 | 15 mg | | | | | 20 8:59 | | | | | | AM PDT | | | | +-------+ +-------+---+---+ +---+---+ | | | +---+---+ + +-------+ +------+---+---+ | clonazePAM (klonoPIN) tablet 1 | Given | 04/09/20 | 1 mg | | | | mg 1 mg, Oral, NIGHTLY PRN, | | 20 8:13 | | | | | Anxiety, Starting Tue04/08/20 at | | PM PDT | | | | | 2107, Reproductive Risk: Use | | | | | | | appropriate handling | | | | | | | precautions., | | | | | | + +-------+ +------+---+---+ +---+---+ | | | +---+---+ + +-------+ +--------+---+---+ | cloNIDine (CATAPRES) tablet 0.2 | Given | 04/10/20 | 0.2 mg | | | | mg 0.2 mg, Oral, 2 TIMES DAILY, | | 20 9:19 | | | | | First dose on Tue04/08/20 at | | AM PDT | | | | | 2130 | | | | | | + +-------+ +--------+---+---+ +-------+ +--------+---+---+ | Given | 04/09/20 | 0.2 mg | | | | | 20 8:13 | | | | | | PM PDT | | | | +-------+ +--------+---+---+ | Given | 04/08/20 | 0.2 mg | | | | | 20 10:58 | | | | | | PM PDT | | | | +-------+ +--------+---+---+ +---+---+ | | | +---+---+ + +-------+ +-------+---+---+ | clopidogrel (PLAVIX) tablet 75 | Given | 04/10/20 | 75 mg | | | | mg 75 mg, Oral, DAILY, First | | 20 9:19 | | | | | dose on 04/09/20 at 0900 | | AM PDT | | | | + +-------+ +-------+---+---+ +-------+ +-------+---+---+ | Given | 04/09/20 | 75 mg | | | | | 20 8:59 | | | | | | AM PDT | | | | +-------+ +-------+---+---+ +---+---+ | | | +---+---+ + +-------+ +-------+---+ + | enoxaparin (LOVENOX) 40 mg/0.4 | Given | 04/10/20 | 40 mg | | Abdomen- | | mL injection 40 mg 40 mg, | | 20 9:20 | | | LLQ | | Subcutaneous, EVERY 24 HOURS | | AM PDT | | | | | (Daily), First dose on Paloma | | | | | | | 04/10/20 at 0900 | | | | | | + +-------+ +-------+---+ + +---+---+ | | | +---+---+ + +-------+ +-------+---+---+ | escitalopram (LEXAPRO) tablet | Given | 04/10/20 | 30 mg | | | | 30 mg 30 mg, Oral, DAILY, First | | 20 9:19 | | | | | dose on Tue04/09/20 at 0900 | | AM PDT | | | | + +-------+ +-------+---+---+ +-------+ +-------+---+---+ | Given | 04/09/20 | 30 mg | | | | | 20 8:59 | | | | | | AM PDT | | | | +-------+ +-------+---+---+ +---+---+ | | | +---+---+ + +-------+ +---------+---+---+ | iohexol (OMNIPAQUE 350) 350 | Given | 04/08/20 | 120 mLs | | | | mg/mL injection 120 mL 120 mL, | | 20 6:03 | | | | | Intravenous, ONCE PRN, Other, | | PM PDT | | | | | Starting Tu04/08/20 at 1800, For | | | | | | | 1 dose, Cat Scanner | | | | | | + +-------+ +---------+---+---+ +---+---+ | | | +---+---+ + +---------+ +---------+---+ + | nicotine (NICODERM) 14 mg/24 hr | Patch | 04/10/20 | 1 patch | | Arm-Righ | | 1 patch 1 patch, Transdermal, | Applied | 20 9:21 | | | t Upper | | DAILY, First dose on Tue04/09/20 | | AM PDT | | | | | at 0900 | | | | | | + +---------+ +---------+---+ + + + +---------+---+ + | Patch Applied | 04/09/20 | 1 patch | | Deltoid- | | | 20 8:52 | | | Left | | | AM PDT | | | | + + +---------+---+ + +---+---+ | | | +---+---+ + +-------+ +-------+---+---+ | pantoprazole (PROTONIX) DR | Given | 04/10/20 | 40 mg | | | | tablet 40 mg 40 mg, Oral, DAILY | | 20 6:34 | | | | | BEFORE BREAKFAST, First dose on | | AM PDT | | | | | Paloma 04/10/20 at 0700, Do not cut | | | | | | | or crush., Indication: GERD | | | | | | + +-------+ +-------+---+---+ +---+---+ | | | +---+---+ + +-------+ +------+---+---+ | prazosin (MINIPRESS) capsule 5 | Given | 04/09/20 | 5 mg | | | | mg 5 mg, Oral, NIGHTLY, First | | 20 8:14 | | | | | dose on Tue04/08/20 at 2130 | | PM PDT | | | | + +-------+ +------+---+---+ +-------+ +------+---+---+ | Given | 04/08/20 | 5 mg | | | | | 20 11:03 | | | | | | PM PDT | | | | +-------+ +------+---+---+ +---+---+ | | | +---+---+ + +------+ +---------+-------+---+ | sodium chloride 0.9% (NS) bolus | Push | 04/08/20 | 100 mLs | 6000 | | | 100 mL 100 mL, Intravenous, | | 20 6:03 | | mL/hr | | | Administer over 1 Minutes, ONCE | | PM PDT | | | | | PRN, for contrast study, Starting | | | | | | | Tue04/08/20 at 1803, For 1 dose, | | | | | | | May infuse at a different rate | | | | | | | per protocol., Cat Scanner | | | | | | + +------+ +---------+-------+---+ +---+---+ | | | +---+---+ documented in this encounter
--- OUTSIDE RECORDS SUMMARY | ~2020-07-27 | XMS | Encounter Summary ---
Demographics + + + | Address | [address] | | | [place] [address] | + + + | Home Phone | | + + + | Preferred Language | Unknown | + + + | Marital Status | | + + + | Confucianism Affiliation | [id number] | + + + | Race | White | + + + | Ethnic Group | Not or | + + + Author + + + | Author | [facility] | | | and [place] | + + + | Organization | [facility] | | | and [...] Mandeep Pollack | ECON | [place] [address] | | + + + + + Care Team Providers + +------+ + | Care Net Coordinator Name | Role | Phone | + +------+ + | Latasha Branard | PCP | | + +------+ + Reason for Referral Evaluate & Treat (Routine) +--------+ + + + + + | Status | Reason | Specialty | Diagnoses / | Referred By | Referred To | | | | | Procedures | Contact | Contact | +--------+ + + + + + | Closed | Specialty | Home Health | Diagnoses | Guilherme, | | | | Services | Services | Essential | Wiliam | | | | Required | | hypertension | MD Pratik | | | | | | Ischemic | [address] | | | | | [address] | [address] | | | | | | lar accident | INDIRA INDIRA, | | | | | | (CVA) (HCC) | [place] [address] | | | | | | Tobacco | Phone: | | | | | | abuse Panic | [phone] | | | | | | anxiety | Fax: | | | | | | syndrome | [phone] | | | | | | Chronic | | | | | | | post-traumat | | | | | | | ic stress | | | | | | | disorder | | | | | | | (PTSD) Left | | | | | | | homonymous | | | | | | | hemianopsia | | | | | | | due to | | | | | | | recent | | | | | | | cerebral | | | | | | | infarction | | | | | | | Carlton-neglect | | | | | | | of left | | | | | | | side | | | +--------+ + + + + + Evaluate & Treat (Routine) +--------+ + + + + + | Status | Reason | Specialty | Diagnoses / | Referred By | Referred To | | | | | Procedures | Contact | Contact | +--------+ + + + + + | Closed | Specialty | Home Health | Diagnoses | Guilherme, | | | | Services | Services | Essential | Wiliam | | | | Required | | hypertension | MD Pratik | | | | | | Ischemic | [address] | | | | | | [address] | [address] | | | | | | lar accident | INDIRA JACOBSON, | | | | | | (CVA) ([facility]) | [place] [address] | | | | | | Tobacco | Phone: | | | | | | abuse Panic | [phone] | | | | | | anxiety | Fax: | | | | | | syndrome | [phone] | | | | | | Chronic | | | | | | | post-traumat | | | | | | | ic stress | | | | | | | disorder | | | | | | | (PTSD) Left | | | | | | | homonymous | | | | | | | hemianopsia | | | | | | | due to | | | | | | | recent | | | | | | | cerebral | | | | | | | infarction | | | | | | | Carlton-neglect | | | | | | | of left | | | | | | | side | | | +--------+ + + + + + Reason for Visit Auth/Cert +--------+--------+ + + + + | Status | Reason | Specialty | Diagnoses / | Referred By | Referred To | | | | | Procedures | Contact | Contact | +--------+--------+ + + + + | | | | Diagnoses | | | | | | | CVA | | | +--------+--------+ + + + + Encounter Details +--------+ + + + + | Date | Type | Department | Care Team | Description | +--------+ + + + + | 05/14/ | Hospital | [facility] | Wiliam Vanegas | Essential | | 2020 - | Encounter | MED [facility] [address] | MD Pratik [address] | hypertension; | | | | [place], | [address] [place] | Ischemic | | 04/23/ | | [place] [address] | [place] [address] | cerebrovascular | | 2020 | | [phone] | [phone] | accident (CVA) | | | | | | (HCC); Tobacco | | | | | | abuse; Panic anxiety | | | | | | syndrome; Chronic | | | | | | post-traumatic | | | | | | stress disorder | | | | | | (PTSD); Left | | | | | | homonymous | | | | | | hemianopsia due to | | | | | | recent cerebral | | | | | | infarction; | | | | | | Carlton-neglect of left | | | | | | side | +--------+ + + + + Social [...] + documented in this encounter Discharge Summaries Wiliam Vanegas MD - 04/23/2020 10:51 AM PDTFormatting of this note might be diff erent from the original. 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 FINDINGS: Hypoattenuation of parenchyma within the mesial right temporal and occipital lobes and right thalamus is again apparent and is similar in extent, allowing for beam hardening, corresponding with regions of ischemia/infarction described on recent MRI. Chronic infarcts are again visible in the left centrum semiovale and superior left cerebellar hemisphere. Additional small hypoattenuating foci are again apparent elsewhere in the frontoparietal white matter and are similar in appearance, favoring chronic, microvascular ischemic change. The ventricles and brainstem are unremarkable. There is no mass effect, evidence of recent intracranial hemorrhage or extra-axial abnormality. Heavily calcified plaque is present in the terminal vertebral and internal carotid arteries. Mucous membrane thickening is again apparent at the right frontoethmoidal recess and within bilateral ethmoid air cells. Low-attenuation fluid or other material persists in the left middle ear cavity. There is opacification of the paucity of left mastoid air cells as well as scattered right mastoid air cells. There is periapical lucency involving right maxillary molars. No fracture is visible. Impression 1. NO EVIDENCE OF TRAUMATIC INJURY OR NEW INTRACRANIAL DISEASE. 2. SIMILAR PARENCHYMAL HYPOATTENUATION IN THE RIGHT POSTERIOR CEREBRAL ARTERY DISTRIBUTION, CONSISTENT WITH INFARCTION. 3. STABLE CHRONIC INFARCTS IN THE LEFT CENTRUM SEMIOVALE AND LEFT CEREBELLUM. 4. EXTENSIVE VASCULAR CALCIFICATION. 5. SIMILAR PARANASAL SINUS DISEASE, LEFT MIDDLE EAR OPACIFICATION OF BILATERAL MASTOID FLUID. Preliminary results of this study were reported by the [facility] radiologist on April 16, 2020 at 2351 hours. Dictated and Signed by: Fred Acosta MD Electronically signed: 04/17/2020 7:24 AM Treatments: therapies: PT, OT and ST and intensive inpatient rehabilitation ADMISSION HPI: This is a55 y.o.malewith a history ofhypertension, anxiety, depression who presents with left-sided weakness, mild expressive aphasia and vision deficit with recent concern fo r acute CVA withconcern for progression of event versus new ischemic event. Spoke with p atient and who reports initially presenting to [facility] on 03/19/2020 wi th new onset left-sided weakness, numbness and a syncopal episode. Patient additionally en dorsed left-sided vision deficit. While in the emergency department had a CT head performe d with findings with bilateral white matter changes with concerns for possible demyelinating process and recommended nonemergent brain MRI. The reports that they were concerned there is a possible urinary tract infection but no additional medications were given. Meghana ent symptoms persisted and were able to have a outpatient MRI performed on 04/03 with mildly h emorrhagic right CAR ICER infarct and chronic small vessel ischemic change. As per the , fe lt weakness worsened on left side. Patient was using walker at home with poor coordination . Patient had increased bifrontal headache and prevented to the emergency department at [facility] again. Sent to [facility] for MRI evaluation. Patient and spouse were unable to get outpatient neurology appointment. While in the emergency department a CT scan was performed with right occipital and temporal lobes consistent with subacute ischemia and probable cortical mineralization. 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 Patient does have a longstanding smoking history currently smoking 4 cigarettes/day. Dr. Rios set him up with nicotine patches and warmed him not to smoke again. He has done well in all therapies and thus is to be admitted to [facility] with the goal of home w ith his , after we got approval from the [place] to admit him. PMHx: (per chart review confirmed with pt) Past Medical History: Diagnosis Date Hypertension PSx: No past surgical history on file. Meds During Hospitalization Current Facility-Administered Medications Medication Dose Route Frequency Provider Last Rate Last Dose acetaminophen (TYLENOL) 160 mg/5 mL liquid 650 mg 650 mg Per NG tube Q4H PRN Wiliam Vanegas MD Or acetaminophen (TYLENOL) tablet 650 mg 650 mg Oral Q4H PRN Wiliam Vanegas MD 650 mg at 04/21/20 1615 Or acetaminophen (TYLENOL) suppository 650 mg 650 mg Rectal Q4H PRN Wiliam Mejía nd, MD ALPRAZolam (XANAX) tablet 0.5 mg 0.5 mg Oral TID PRN Wiliam Vanegas MD 0.5 mg at 04/22/20 1047 aluminum & magnesium hydroxide-simethicone (MAALOX PLUS REGULAR STRENGTH) 200-200-20 mg /5 mL suspension 30 mL 30 mL Oral Q4H PRN Wiliam Vanegas MD aspirin EC tablet 81 mg 81 mg Oral Daily Wiliam Vanegas MD 81 mg at 0845 atorvaSTATin (LIPITOR) tablet 80 mg 80 mg Oral Nightly Wiliam Vanegas MD 8 0 mg at 04/22/202106 bisacodyl (DULCOLAX) suppository 10 mg 10 mg Rectal Daily PRN Wiliam Vanegas MD busPIRone (BUSPAR) tablet 10 mg 10 mg Oral BID Wiliam Vanegas MD 10 mg at 04/23/20 0845 carboxymethylcellulose (PF) (REFRESH CELLUVISC, THERATEARS) 1% ophthalmic gel 1 drop 1 drop Both Eyes Q1H PRN Wiliam Vanegas MD 1 drop at 04/14/202021 clonazePAM (klonoPIN) tablet 1 mg 1 mg Oral BID PRN Wiliam Vanegas MD 1 mg at 04/23/20 0845 cloNIDine (CATAPRES) tablet 0.1 mg 0.1 mg Oral BID Wiliam Vanegas MD 0.1 m g at 04/23/20 0845 clopidogrel (PLAVIX) tablet 75 mg 75 mg Oral Daily Wiliam Vanegas MD 75 mg at 04/23/20 0845 docusate sodium (COLACE) capsule 100 mg 100 mg Oral BID PRN Ollie Barksdale D 100 mg at 04/18/202011 enoxaparin (LOVENOX) 40 mg/0.4 mL injection 40 mg 40 mg Subcutaneous Daily Wiliam Vanegas MD 40 mg at 04/23/20 0845 escitalopram (LEXAPRO) tablet 30 mg 30 mg Oral Daily Wiliam Vanegas MD 30 mg at 04/23/20 0845 hydrOXYzine hydrochloride (ATARAX) tablet 25 mg 25 mg Oral Q8H PRN Wiliam mosquera MD magnesium hydroxide (MILK OF MAGNESIA) 400 mg/5 mL suspension 30 mL 30 mL Oral Nightly PRN Wiliam Vanegas MD nicotine (NICODERM) 14 mg/24 hr 1 patch 1 patch Transdermal Daily Wiliam Valerio MD 1 patch at 04/23/20 0846 ondansetron (ZOFRAN ODT) disintegrating tablet 4 mg 4 mg Oral Q6H PRN Wiliam Vanegas MD ondansetron (ZOFRAN) injection 4 mg 4 mg Intravenous Q6H PRN Wiliam Vanegas MD pantoprazole (PROTONIX) DR tablet 40 mg 40 mg Oral QAM AC Wiliam Vanegas MD 40 mg at 04/23/20 0632 polyethylene glycol (MIRALAX) powder 17 g 17 g Oral Daily PRN Wiliam Vanegas MD prazosin (MINIPRESS) capsule 3 mg 3 mg Oral Nightly Wiliam Vanegas MD 3 mg at 04/22/208 senna (SENOKOT) tablet 8.6 mg 8.6 mg Oral BID PRN Wiliam Vanegas MD 8.6 mg at 04/16/20 1825 Allergies: Allergies No active allergies Intolerance No [...] file Gets together: Not on file Attends yarsani service: Not on file Active member of [...] file Social History Narrative Not on file Liveswith spousein a 4story home with 1stairs to enter. Bedroom and shower on f wilmer Functional Status: Current: IRF-UCHE Bed Transfer Score: 6 IRF-UCHE Toilet Transfer Score: 5 IRF-UCHE Tub/Shower Transfer Score: IRF-UCHE Walk Score: 5 IRF-UCHE Distance Walked(feet): 200 IRF-UCHE Dressing Upper Body Score: 5 IRF-UCHE Dressing Lower Body Score: 5 IRF-UCHE Toileting Score: 5 DISCHARGE PHYSICAL EXAMINATION: VS: BP 123/63 | Pulse 62 | Temp 37.1 C (98.7 F) (Oral) | Resp 16 | Ht 1.753 m (5' 9 ") | Wt 93.8 kg (206 lb 12.7 oz) | SpO2 97% | BMI 30.54 kg/m GEN: Normally developed, sitting in chair, NAD PSYCH: Appropriate, pleasant, cooperative HEENT: moderate left visual field cut, moderate left neglect Throat: tongue protrudes slightlyto left and has a mild left facial droop CV: Heart RRR, no m/r/g Lungs: Clear ABD: +BS, soft Extremities:traceedema LE at ankles Neurologic Exam: CN II-XII: grossly intactexcept a right VII and XII nerve injury Muscle Strength: Right:UE/LE 4+ Left: Shoulder4, elbow4, grip4, hip4, knee4, ankle4- Sensory:decreased left scalp, face, neck, thorax, leg down to toes, tingling sensation Cognitive exam:Orientedto: Self, name of hospital, city, month, year, day. Follows 2step commands. Moderate left neglect noted. Hospital Course: He did really well, but still has a left neglect, so will need outpatient therapies after d one with home health. I cut his clonidine to 0.1 mg bid since his bp was a little low after his CVA. He was also started on Plavix on acute, so I re did his orders to include this and had it r esent to [facility], his correct pharmacy. 1.CVA with left hemiparesis: mild. Main barrier is d/c his sensory loss and field cut -: strength good, function improving. 2.Left hemisensory loss with neglect: left scalp down through the toes. 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 He also tends to ignore the left side -: improving, but still mild to moderate left sided neglect noted, especially with f atigue. Better spontaneous use today also of left arm. 3.Left visual field cut: moderate. Learning to compensate, but still tends to run into thing on the left -04/14-: improving, but still significant problem and probably main barrier to independent and safe living. -04/17: fall to left last night, no injury, neuro intact. Head CT no change. -: no new problems today, improving compensation, but still needs supervision. 4.PTSD: moderately severe, but under control so far with Klonopin, Xanax -04/14: moderate problems over the weekend. He was on atarax also at home, so I ordered phoenix t, plus he was on bid klonopin at home and would rather avoid the xanax, so I changed that t o BID. -04/15:moved to other side of building from where helicopters land, as they set off his PTSD . -: better with move -04/18: xanax today d/t panic attack with good benefit and not interfere with therapies. -04/21-: stable 5.Hypotension: BP down to 102 this morning, as well as in PT, so I cut back on his clonop ine to .1mg bid and asked OT to check BP when they first see him -04/14: bp improving, still a little low for post CVA, but no symptoms; lowest systolic wa s 110, but transient and no symptoms, still on BK TEDS. -04/15: bp down to 102, then up to 137, no symptoms, continue TEDS -04/16: down to 112 today, no symptoms, continue to monitor closely. -04/17: bp slowly coming up, low 114 today. -04/18: bp stabilizing 110-120's range. -04/21-: down to 100's transiently, no symptoms, continue TEDs 6. Tobacco Abuse: on nicotine patches and doing ok for now. -04/14-: stable on nicotine patches, so will give d/c script # Pain:MSK pain Tylenol, PRN narco. #Bowel/Bladder: Bowel and bladder program started per IPR protocol. Adjustments and treat ments as needed based upon results, including PVR's, IC, suppositories, enemas, and PO meds. DISCHARGE MEDICATIONS: Discharge Medications New Medications Details nicotine 14 mg/[address] 1 patch onto the skin Daily. aka: NICODERM Start: April 24, 2020 Changed Medications Details busPIRone 10 MG tablet Take 15 mg by mouth 2 times daily. What changed: Another medication with the same name was removed. Continue taking this medi cation, and follow the directions you see here. aka: BUSPAR cloNIDine 0.1 mg tablet Take 1 tablet by mouth 2 times daily. What changed: medication strength how much to take Another medication with the same name was removed. Continue taking this medication, and follow the directions you see here. aka: CATAPRES prazosin 5 mg capsule Take 5 mg by mouth nightly. What changed: Another medication with the same name was removed. Continue taking this medi cation, and follow the directions you see here. aka: MINIPRESS Unchanged Medications Details acetaminophen 500 mg tablet Take 1,000 mg by mouth every 6 hours as needed for Headaches. aka: TYLENOL ALPRAZolam 0.5 mg tablet Take 0.5 mg by mouth Daily as needed. At onset of panic attack aka: XANAX ARTIFICIAL TEAR SOLUTION OP Apply 2-3 drops to eye Twice daily as needed (dry/itchy eyes). aspirin 81 MG EC tablet Take 1 tablet by mouth Daily. atorvaSTATin 80 MG tablet Take 1 tablet by mouth nightly. aka: LIPITOR calcium carbonate 500 mg chewable tablet Chew and swallow 2 tablets Daily as needed for Heartburn. aka: TUMS clonazePAM 1 mg tablet Take 1 mg by mouth nightly. aka: klonoPIN clonazePAM 1 mg tablet Take 1 mg by mouth as needed. At onset of panic attack. No more than 2 tablets per day. (G ashish with Alprazolam) aka: klonoPIN clopidogrel 75 mg tablet Take 1 tablet by mouth Daily. aka: PLAVIX escitalopram 20 mg tablet Take 30 mg by mouth Daily. aka: LEXAPRO hydrOXYzine 50 MG capsule Take 50-100 mg by mouth Twice daily as needed for Anxiety. aka: VISTARIL lidocaine 5% patch Place 1 patch onto the skin Daily. Apply for 12 hours, then remove for 12 hours. aka: LIDODERM Melatonin 10 MG Tabs Take 10 mg by mouth nightly. sildenafil 100 MG tablet Take 100 mg by mouth as needed for Erectile Dysfunction. Not to exceed 4 tabs in 1 month aka: VIAGRA Current Discharge Medication List START taking these medications Medication Dose Last Dose Taken; nicotine (NICODERM) 14 mg/24 hr 1 patch [ ] Place 1 patch onto the skin Daily. Qty: 30 patch Refills: 2 Start date: 04/24/2020 CONTINUE these medications which have CHANGED or have been refilled with a NEW PRESCRIPTIO N Medication Dose Last Dose Taken; cloNIDine (CATAPRES) 0.1 mg tablet 0.1 mg [ ] Take 1 tablet by mouth 2 times daily. Qty: 60 tablet Refills: 3 Start date: 04/23/2020 CONTINUE these medications which have NOT CHANGED Medication Dose Last Dose Taken; acetaminophen (TYLENOL) 500 mg tablet 1,000 mg [ ] Take 1,000 mg by mouth every 6 hours as needed for Headaches. ALPRAZolam (XANAX) 0.5 mg tablet 0.5 mg [ ] Take 0.5 mg by mouth Daily as needed. At onset of panic attack ARTIFICIAL TEAR SOLUTION OP 2-3 drops [ ] Apply 2-3 drops to eye Twice daily as needed (dry/itchy eyes). aspirin 81 MG EC tablet 81 mg [ ] Take 1 tablet by mouth Daily. Qty: 30 tablet Refills: 0 Start date: 04/11/2020 atorvaSTATin (LIPITOR) 80 MG tablet 80 mg [ ] Take 1 tablet by mouth nightly. Qty: 30 tablet Refills: 0 Start date: 04/10/2020 busPIRone (BUSPAR) 10 MG tablet 15 mg [ ] Take 15 mg by mouth 2 times daily. calcium carbonate (TUMS) 500 mg chewable tablet 2 tablets [ ] Chew and swallow 2 tablets Daily as needed for Heartburn. !! clonazePAM (KLONOPIN) 1 mg tablet 1 mg [ ] Take 1 mg by mouth nightly. !! clonazePAM (KLONOPIN) 1 mg tablet 1 mg [ ] Take 1 mg by mouth as needed. At onset of panic attack. No more than 2 tablets per day. (G ashish with Alprazolam) clopidogrel (PLAVIX) 75 mg tablet 75 mg [ ] Take 1 tablet by mouth Daily. Qty: 30 tablet Refills: 0 Start date: 04/11/2020 escitalopram (LEXAPRO) 20 mg tablet 30 mg [ ] Take 30 mg by mouth Daily. hydrOXYzine (VISTARIL) 50 MG capsule 50-100 mg [ ] Take 50-100 mg by mouth Twice daily as needed for Anxiety. lidocaine (LIDODERM) 5% patch 1 patch [ ] Place 1 patch onto the skin Daily. Apply for 12 hours, then remove for 12 hours. Melatonin 10 MG TABS 10 mg [ ] Take 10 mg by mouth nightly. prazosin (MINIPRESS) 5 mg capsule 5 mg [ ] Take 5 mg by mouth nightly. sildenafil (VIAGRA) 100 MG tablet 100 mg [ ] Take 100 mg by mouth as needed for Erectile Dysfunction. Not to exceed 4 tabs in 1 month !! Potential duplicate medications found. Please discuss with provider. DISPOSITION: Home with family And HH FOLLOW UP: -PCP: 1-2 weeks after d/c from hospital, KORY Galarza DISCHARGE INSTRUCTIONS: Discharge Instructions 1. Home health will call you to set up appointments for PT, OT, and speech therapy, as wel l as a social media job titles to set up transport for outpatient therapies, after home health is done . 2. It is ok to continue your buspar and minipress at the same doses you were on at home if that is what you want. However, your health care provider wanted you to continue increasin g those medications, so those higher doses are what are on your discharge printout. I spent 52 minutes face to face with the patient, with over 50% spent in counseling and/or coordination of care regarding discharge meds, f/u appointments, setting up d/c therapies, a rranging for equipment. Signed: Deacon Vanegas MD 04/23/2020 10:51 AM CC: KORY Galarza Portions of this chart may have been created with [employer] voice recognition software. Occasi onal wrong-word or sound-alike substitutions may have occurred due to the inherent phillips itations of voice recognition software. Please read the chart carefully and recognize, using context, where these substitutions have occurred documented i n this encounter Discharge Instructions Instructions Wiliam Vanegas MD - 04/23/20201. Home health will call you to set up appointments for PT, OT, and speech therapy, as well as a social media job titles to set up transpo rt for outpatient therapies, after home health is done. 2. It is ok to continue your buspar and minipress at the same doses you were on at home if that is what you want. However, your health care provider wanted you to continue increasin g those medications, so those higher doses are what are on your discharge printout. documented in this encounter Medications at Time of Discharge + [...] | 0 | 04/11/20 | | | tablet | mouth Daily. | tablet | | 20 | | + + + +---------+ + + | atorvaSTATin | Take 1 tablet by | 30 | 0 | 04/10/20 | | | (LIPITOR) 80 MG | mouth nightly. | tablet | | 20 | | | tablet | | | | | | + + + +---------+ + + | busPIRone (BUSPAR) | Take 15 mg by mouth | | 0 | 04/09/20 | | | 10 MG tablet | [...] documented as of this encounter Progress Notes Wiliam Vanegas MD - 04/22/2020 2:17 PM PDTFormatting of this note might be diff erent from the original. [facility] Daily Progress Note Date: 04/22/20 ID/CC: Efren Menard a 55 y.o.malewho was admitted to [facility] on 04[facility]08[facility]20 20for Cerebrovascular accident (CVA), unspecified mechanism (HCC) [I63.9]. PM&R consulta tion was requested by Dr. Gabby tyson. providers foundto provide an opinion regarding Efren Hansennrehabilitation needs. Interval history: BP 119-127 today, therapists aware and checking bp when seeing him, continue TEDS for now. PSTD better after switched to opposite side of building and he's very pleased. Still using klonopin qd to bid with good help. Still tending to run into things on the left and left neglect is in the moderate range, but improving. [facility] can transport him and do training tomorrow. Team conference today, ready for d/c tomorrow Past Medical History: Past Medical History: Diagnosis Date Hypertension Current Meds: Current Facility-Administered Medications: acetaminophen (TYLENOL) 160 mg/5 mL liquid 650 mg, 650 mg, Per NG tube, Q4H PRN OR acetaminophen (TYLENOL) tablet 650 mg, 650 mg, Oral, Q4H PRN, 650 mg at 04/21/20 1615 OR* * acetaminophen (TYLENOL) suppository 650 mg, 650 mg, Rectal, Q4H PRN, Wiliam Mejía nd, MD ALPRAZolam (XANAX) tablet 0.5 mg, 0.5 mg, Oral, TID PRN, Wiliam Vanegas MD, 0.5 mg at 04/22/20 1047 aluminum & magnesium hydroxide-simethicone (MAALOX PLUS REGULAR STRENGTH) 200-200-20 m g/5 mL suspension 30 mL, 30 mL, Oral, Q4H PRN, Wiliam Vanegas MD aspirin EC tablet 81 mg, 81 mg, Oral, Daily, Wiliam Vanegas MD, 81 mg at 800 atorvaSTATin (LIPITOR) tablet 80 mg, 80 mg, Oral, Nightly, Wiliam Vanegas MD , 80 mg at 04/21/202107 bisacodyl (DULCOLAX) suppository 10 mg, 10 mg, Rectal, Daily PRN, Wiliam Valerio MD busPIRone (BUSPAR) tablet 10 mg, 10 mg, Oral, BID, Wiliam Vanegas MD carboxymethylcellulose (PF) (REFRESH CELLUVISC, THERATEARS) 1% ophthalmic gel 1 drop, 1 drop, Both Eyes, Q1H PRN, Wiliam Vanegas MD, 1 drop at 04/14/202021 clonazePAM (klonoPIN) tablet 1 mg, 1 mg, Oral, BID PRN, Wiliam Vanegas MD, 1 mg at 04/22/20802 cloNIDine (CATAPRES) tablet 0.1 mg, 0.1 mg, Oral, BID, Wiliam Vanegas MD, 0. 1 mg at 04/22/20800 clopidogrel (PLAVIX) tablet 75 mg, 75 mg, Oral, Daily, Wiliam Vanegas MD, 75 mg at 04/22/20 0800 docusate sodium (COLACE) capsule 100 mg, 100 mg, Oral, BID PRN, Wiliam montoya MD, 100 mg at 04/18/202011 enoxaparin (LOVENOX) 40 mg/0.4 mL injection 40 mg, 40 mg, Subcutaneous, Daily, Wiliam Vanegas MD, 40 mg at 04/22/20 0803 escitalopram (LEXAPRO) tablet 30 mg, 30 mg, Oral, Daily, Wiliam Vanegas MD, 30 mg at 04/22/20 0800 hydrOXYzine hydrochloride (ATARAX) tablet 25 mg, 25 mg, Oral, Q8H PRN, Wiliam Vanegas MD magnesium hydroxide (MILK OF MAGNESIA) 400 mg/5 mL suspension 30 mL, 30 mL, Oral, Nigh tly PRN, Wiliam Vanegas MD nicotine (NICODERM) 14 mg/24 hr 1 patch, 1 patch, Transdermal, Daily, Wiliam Vanegas MD, 1 patch at 04/22/20 0804 ondansetron (ZOFRAN ODT) disintegrating tablet 4 mg, 4 mg, Oral, Q6H PRN, Wiliam Vanegas MD ondansetron (ZOFRAN) injection 4 mg, 4 mg, Intravenous, Q6H PRN, Wiliam Mejía nd, MD pantoprazole (PROTONIX) DR tablet 40 mg, 40 mg, Oral, QAM AC, Wiliam Vanegas MD, 40 mg at 04/22/20 0643 polyethylene glycol (MIRALAX) powder 17 g, 17 g, Oral, Daily PRN, Wiliam Valerio MD prazosin (MINIPRESS) capsule 3 mg, 3 mg, Oral, Nightly, Wiliam Vanegas MD senna (SENOKOT) tablet 8.6 mg, 8.6 mg, Oral, BID PRN, Wiliam Vanegas MD, 8.6 mg at 04/16/20 1825 Allergies: Allergies No active allergies Intolerance No active intolerances/contraindications Physical Exam: BP 119/70 | Pulse 57 | Temp 36 C (96.8 F) (Oral) | Resp 18 | Ht 1.753 m (5' 9") | Wt 93.8 kg (206 lb 12.7 oz) | SpO2 97% | BMI 30.54 kg/m GEN: Normally developed, sitting in chair, NAD PSYCH: Appropriate, pleasant, cooperative HEENT: moderate left visual field cut, moderate left neglect Throat: tongue protrudes slightly to left and has a mild left facial droop CV: Heart RRR, no m/r/g Lungs: Clear ABD: +BS, soft Extremities: trace edema LE at ankles Neurologic Exam: CN II-XII: grossly intact except a right VII and XII nerve injury Muscle Strength: Right: UE/LE 4+ Left: Shoulder 4, elbow 4, surveying teacher 4, hip 4, knee 4, ankle 4- Sensory: decreased left scalp, face, neck, thorax, leg down to toes, tingling sensation Cognitive exam: Oriented to: Self, name of hospital, city, month, year, day. Follows [address] ep commands. Moderate left neglect noted. Assessment/Rehab Plan: This is a55 y.o.malewith a history ofhypertension, anxiety, depression who presents with left-sided weakness, mild expressive aphasia and vision deficit with recent concern fo r acute CVA withconcern for progression of event versus new ischemic event. Spoke with p suri and who reports initially presenting to [facility] on 03/19/2020 wi th new onset left-sided weakness, numbness and a syncopal episode. Patient additionally en dorsed left-sided vision deficit. While in the emergency department had a CT head performe d with findings with bilateral white matter changes with concerns for possible demyelinating process and recommended nonemergent brain MRI. The reports that they were concerned there is a possible urinary tract infection but no additional medications were given. Meghana ent symptoms persisted and were able to have a outpatient MRI performed on 04/03 with mildly h emorrhagic right CAR ICER infarct and chronic small vessel ischemic change. As per the , fe lt weakness worsened on left side. Patient was using walker at home with poor coordination . Patient had increased bifrontal headache and prevented to the emergency department at [facility] again. Sent to [facility] for MRI evaluation. Patient and spouse were unable to get outpatient neurology appointment. While in the emergency department a CT scan was performed with right occipital and temporal lobes consistent with subacute ischemia and probable cortical mineralization. 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 Patient does have a longstanding smoking history currently smoking 4 cigarettes/day[address] Dr. Rios set him up with nicotine patches and warmed him not to smoke again. He has done well in all therapies and thus is to be admitted to [facility] with the goal of home w ith his , after we got approval from the [place] to admit [place]. Patient is benefiting from inpatient rehabilitation since he needs physical therapy, occup ational therapy, speech therapy, social service director, physiatric and nursing intervention. #Rehab - -Continue PT for gait, transfers, braces, wheelchair versus walker evaluation. -Continue OT for adl's, self care, home eval, equipment, cognition, safety -Continue SAND WORKER for cognition, safety -Continue SW for discharge planning IMPRESSION/OVERALL PLAN: 1. CVA with left hemiparesis: mild. Main barrier is d/c his sensory loss and field cut -: strength good, function improving. 2. 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 He also tends to ignore the left side -: improving, but still mild to moderate left sided neglect noted, especially with f atigue. Better spontaneous use today also of left arm. 3. Left visual field cut: moderate. Learning to compensate, but still tends to run into th ing on the left -: improving, but still significant problem and probably main barrier to independent and safe living. -04/17: fall to left last night, no injury, neuro intact. Head CT no change. -: no new problems today, improving compensation, but still needs supervision. 4. PTSD: moderately severe, but under control so far with Klonopin, Xanax -04/14: moderate problems over the weekend. He was on atarax also at home, so I ordered phoenix t, plus he was on bid klonopin at home and would rather avoid the xanax, so I changed that t o BID. -04/15:moved to other side of building from where helicopters land, as they set off his PTSD . -04/16-: better with move -04/18: xanax today d/t panic attack with good benefit and not interfere with therapies. -: stable 5. Hypotension: BP down to 102 this morning, as well as in PT, so I cut back on his clonopi ne to .1mg bid and asked OT to check BP when they first see him -04/14: bp improving, still a little low for post CVA, but no symptoms; lowest systolic wa s 110, but transient and no symptoms, still on BK TEDS. -04/15: bp down to 102, then up to 137, no symptoms, continue TEDS -04/16: down to 112 today, no symptoms, continue to monitor closely. -04/17: bp slowly coming up, low 114 today. -04/18: bp stabilizing 110-120's range. -04/21-: down to 10's transiently, no symptoms, continue TEDs 6. Tobacco Abuse: on nicotine patches and doing ok for now. -04/14-: stable on nicotine patches. # Pain: MSK pain Tylenol, PRN narco. #Bowel/Bladder: Bowel and bladder program started per IPR protocol. Adjustments and treatm ents as needed based upon results, including PVR's, IC, suppositories, enemas, and PO meds. #Diet - Current active diet order is: Diet Diet fat and cholesterol modified; Effective Now Code Status: Full Code Dispo: Home with HH and Planned f/u: Primary Caregiver 2 weeks: ELOS: 04/21/20 Total time of 27 minutes was spent with the patient and/or patient's family, and/or on the patient's floor/unit, of which more than 50% was spent counseling and/or coordination the pa tient's care as outlined above. Signed: Deacon Vanegas MD Portions of this chart may have been created with [employer] voice recognition software. Occasi onal wrong-word or sound-alike substitutions may have occurred due to the inherent phillips itations of voice recognition software. Please read the chart carefully and recognize, using context, where these substitutions have occurred. Rufino Maldonado MD - 04/21/2020 2:25 PM PDTFormatting of this note might be different from th e original. [id number] Daily Progress Note Date: 04/21/20 ID/CC: Efren Menard a 55 y.o.malewho was admitted to [facility] on 04/08/20 20for Cerebrovascular accident (CVA), unspecified mechanism (HCC) [I63.9]. PM&R consulta tion was requested by Dr. Pierre att. providers foundto provide an opinion regarding Efren Hansennrehabilitation needs. Interval history: BP 103-134 today, therapists aware and checking bp when seeing him, continue TEDS for now. PSTD better after switched to opposite side of building and he's very pleased. Still using klonopin qd to bid with good help. Still tending to run into things on the left and left neglect is in the moderate range, but improving. He reached with both hands today alsowithout cueing, so this is improving. We will be in touch with re transport and training to be sure she can manage him at th is level at home. Past Medical History: Past Medical History: Diagnosis Date Hypertension Current Meds: Current Facility-Administered Medications: acetaminophen (TYLENOL) 160 mg/5 mL liquid 650 mg, 650 mg, Per NG tube, Q4H PRN OR acetaminophen (TYLENOL) tablet 650 mg, 650 mg, Oral, Q4H PRN, 650 mg at 04/21/20 0138 OR* * acetaminophen (TYLENOL) suppository 650 mg, 650 mg, Rectal, Q4H PRN, Wiliam Mejía nd, MD ALPRAZolam (XANAX) tablet 0.5 mg, 0.5 mg, Oral, TID PRN, Wiliam Vanegas MD, 0.5 mg at 04/21/20 0138 aluminum & magnesium hydroxide-simethicone (MAALOX PLUS REGULAR STRENGTH) 200-200-20 m g/5 mL suspension 30 mL, 30 mL, Oral, Q4H PRN, Wiliam Vanegas MD aspirin EC tablet 81 mg, 81 mg, Oral, Daily, Wiliam Vanegas MD, 81 mg at 0942 atorvaSTATin (LIPITOR) tablet 80 mg, 80 mg, Oral, Nightly, Wiliam Vanegas MD , 80 mg at 04/20/202002 bisacodyl (DULCOLAX) suppository 10 mg, 10 mg, Rectal, Daily PRN, Wiliam Valerio MD busPIRone (BUSPAR) tablet 15 mg, 15 mg, Oral, BID, Wiliam Vanegas MD, 15 mg at 04/21/20941 carboxymethylcellulose (PF) (REFRESH CELLUVISC, THERATEARS) 1% ophthalmic gel 1 drop, 1 drop, Both Eyes, Q1H PRN, Wiliam Vanegas MD, 1 drop at 04/14/202021 clonazePAM (klonoPIN) tablet 1 mg, 1 mg, Oral, BID PRN, Wiliam Vanegas MD, 1 mg at 04/21/20622 cloNIDine (CATAPRES) tablet 0.1 mg, 0.1 mg, Oral, BID, Wiliam Vanegas MD, 0. 1 mg at 04/21/20940 clopidogrel (PLAVIX) tablet 75 mg, 75 mg, Oral, Daily, Wiliam Vanegas MD, 75 mg at 04/21/20940 docusate sodium (COLACE) capsule 100 mg, 100 mg, Oral, BID PRN, Wiliam montoya MD, 100 mg at 04/18/202011 enoxaparin (LOVENOX) 40 mg/0.4 mL injection 40 mg, 40 mg, Subcutaneous, Daily, Wiliam Vanegas MD, 40 mg at 04/21/20940 escitalopram (LEXAPRO) tablet 30 mg, 30 mg, Oral, Daily, Wiliam Vanegas MD, 30 mg at 04/21/20941 hydrOXYzine hydrochloride (ATARAX) tablet 25 mg, 25 mg, Oral, Q8H PRN, Wiliam Vanegas MD magnesium hydroxide (MILK OF MAGNESIA) 400 mg/5 mL suspension 30 mL, 30 mL, Oral, Nigh tly PRN, Wiliam Vanegas MD nicotine (NICODERM) 14 mg/24 hr 1 patch, 1 patch, Transdermal, Daily, Wiliam Vanegas MD, 1 patch at 04/21/20940 ondansetron (ZOFRAN ODT) disintegrating tablet 4 mg, 4 mg, Oral, Q6H PRN, Wiliam Vanegas MD ondansetron (ZOFRAN) injection 4 mg, 4 mg, Intravenous, Q6H PRN, Wiliam Mejía nd, MD pantoprazole (PROTONIX) DR tablet 40 mg, 40 mg, Oral, QAM AC, Wiliam Vanegas MD, 40 mg at 04/21/20 06 polyethylene glycol (MIRALAX) powder 17 g, 17 g, Oral, Daily PRN, Wiliam Valerio MD prazosin (MINIPRESS) capsule 5 mg, 5 mg, Oral, Nightly, Wiliam Vanegas MD, 5 mg at 04/20/202001 senna (SENOKOT) tablet 8.6 mg, 8.6 mg, Oral, BID PRN, Wiliam Vanegas MD, 8.6 mg at 04/16/201824 Allergies: Allergies No active allergies Intolerance No active intolerances/contraindications Physical Exam: BP 103/79 | Pulse 60 | Temp 35.9 C (96.6 F) (Oral) | Resp 18 | Ht 1.753 m (5' 9") | Wt 93.8 kg (206 lb 12.7 oz) | SpO2 97% | BMI 30.54 kg/m GEN: Normally developed, sitting in chair, NAD PSYCH: Appropriate, pleasant, cooperative HEENT: moderate left visual field cut, moderate left neglect Throat: tongue protrudes in the midline to left and has left facial droop CV: Heart RRR, no m/r/g Lungs: Clear ABD: +BS, soft Extremities: trace edema LE at ankles Neurologic Exam: CN II-XII: grossly intact except a right VII and XII nerve injury Muscle Strength: Right: UE/LE 4+ Left: Shoulder 4, elbow 4, surveying teacher 4, hip 4, knee 4, ankle 4- Sensory: decreased left scalp, face, neck, thorax, leg down to toes, tingling sensation Cognitive exam: Oriented to: Self, name of hospital, city, month, year, day. Follows [address] ep commands. Moderate left neglect noted. Assessment/Rehab Plan: This is a55 y.o.malewith a history ofhypertension, anxiety, depression who presents with left-sided weakness, mild expressive aphasia and vision deficit with recent concern fo r acute CVA withconcern for progression of event versus new ischemic event. Spoke with p atient and who reports initially presenting [facility] on 03/[facility]2020 wi th new onset left-sided weakness, numbness and a syncopal episode. Patient additionally en dorsed left-sided vision deficit. While in the emergency department had a CT head performe d with findings with bilateral white matter changes with concerns for possible demyelinating process and recommended nonemergent brain MRI. The reports that they were concerned there is a possible urinary tract infection but no additional medications were given. Meghana ent symptoms persisted and were able to have a outpatient MRI performed on 04/03 with mildly h emorrhagic right CAR ICER infarct and chronic small vessel ischemic change. As per the , fe lt weakness worsened on left side. Patient was using walker at home with poor coordination . Patient had increased bifrontal headache and prevented to the emergency department at [facility] again. Sent to [facility] for MRI evaluation. Patient and spouse were unable to get outpatient neurology appointment. While in the emergency department a CT scan was performed with right occipital and temporal lobes consistent with subacute ischemia and probable cortical mineralization. 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 Patient does have a longstanding smoking history currently smoking 4 cigarettes/day. Dr. Rios set him up with nicotine patches and warmed him not to smoke again. He has done well in all therapies and thus is to be admitted to [facility] with the goal of home w ith his , after we got approval from the [place] to admit [place]. Patient is benefiting from inpatient rehabilitation since he needs physical therapy, occup ational therapy, speech therapy, social service director, physiatric and nursing intervention. #Rehab - -Continue PT for gait, transfers, braces, wheelchair versus walker evaluation. -Continue OT for adl's, self care, home eval, equipment, cognition, safety -Continue SAND WORKER for cognition, safety -Continue for discharge planning IMPRESSION/OVERALL PLAN: 1. CVA with left hemiparesis: mild. Main barrier is d/c his sensory loss and field cut -: strength good, function improving. 2. 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 He also tends to ignore the left side -: improving, but still moderate left sided neglect noted, especially with fatigue. Better spontaneous use today also of left arm. 3. Left visual field cut: moderate. Learning to compensate, but still tends to run into th ing on the left -: improving, but still significant problem and probably main barrier to independent and safe living. -04/17: fall to left last night, no injury, neuro intact. Head CT no change. -04/18-: no new problems today, improving compensation. 4. PTSD: moderately severe, but under control so far with Klonopin, Xanax -04/14: moderate problems over the weekend. He was on atarax also at home, so I ordered phoenix t, plus he was on bid klonopin at home and would rather avoid the xanax, so I changed that t o BID. -04/15:moved to other side of building from where helicopters land, as they set off his PTSD . -04/16-: better with move -04/18: xanax today d/t panic attack with good benefit and not interfere with therapies. -04/21: stable 5. Hypotension: BP down to 102 this morning, as well as in PT, so I cut back on his clonopi ne to .1mg bid and asked OT to check BP when they first see him -04/14: bp improving, still a little low for post CVA, but no symptoms; lowest systolic wa s 110, but transient and no symptoms, still on BK TEDS. -04/15: bp down to 102, then up to 137, no symptoms, continue TEDS -04/16: down to 112 today, no symptoms, continue to monitor closely. -04/17: bp slowly coming up, low 114 today. -04/18: bp stabilizing 110-120's range. -04/21: down to 104 transiently, no symptoms, continue TEDs 6. Tobacco Abuse: on nicotine patches and doing ok for now. -04/14-: stable on nicotine patches. # Pain: MSK pain Tylenol, PRN narco. #Bowel/Bladder: Bowel and bladder program started per IPR protocol. Adjustments and treatm ents as needed based upon results, including PVR's, IC, suppositories, enemas, and PO meds. #Diet - Current active diet order is: Diet Diet fat and cholesterol modified; Effective Now Code Status: Full Code Dispo: Home with HH and Planned f/u: Primary Caregiver 2 weeks: ELOS: 04/21/20 Total time of 19 minutes was spent with the patient and/or patient's family, and/or on the patient's floor/unit, of which more than 50% was spent counseling and/or coordination the pa manjeet's care as outlined above. Signed: Deacon Vanegas MD Portions of this chart may have been created with [employer] voice recognition software. Occasi onal wrong-word or sound-alike substitutions may have occurred due to the inherent phillips itations of voice recognition software. Please read the chart carefully and recognize, using context, where these substitutions have occurred. reland, Rufino Christie MD - 04/18/2020 11:32 AM PDTFormatting of this note might be different from th e original. [id number] Rehabilitation Medicine Daily Progress Note Date: 04/18/20 ID/CC: Efren Sanchez Cammiekristen a 55 y.o.malewho was admitted to [facility] on 04/08/20 20for Cerebrovascular accident (CVA), unspecified mechanism (HCC) [I63.9]. PM&R consulta tion was requested by Dr. Gabby tyson. providers foundto provide an opinion regarding Efren montoya Jadenrehabilitation needs. Interval history: BP 114-127 today, therapists aware and checking bp when seeing him, continue TEDS for now. Stabilizing in this range. PSTD better after switched to opposite side of building and he's very pleased. However, he needed a xanax this morning for a brief panic attack, which resolved with xanax. Still tending to run into things on the left and left neglect is in the moderate range, so between the hemianopsia and neglect, he's still significantly involved, but improving. He r eached with both hands without cueing, so this is improving. Fall night of 04/17 and hit head, no injury, CT head ok, neuro no change, no headache, not e yair any scrapes or bumps to head. Past Medical History: Past Medical History: Diagnosis Date Hypertension Current Meds: Current Facility-Administered Medications: acetaminophen (TYLENOL) 160 mg/5 mL liquid 650 mg, 650 mg, Per NG tube, Q4H PRN OR acetaminophen (TYLENOL) tablet 650 mg, 650 mg, Oral, Q4H PRN, 650 mg at 04/17/20 195 OR* * acetaminophen (TYLENOL) suppository 650 mg, 650 mg, Rectal, Q4H PRN, Wiliam Mejía nd, MD ALPRAZolam (XANAX) tablet 0.5 mg, 0.5 mg, Oral, TID PRN, Wiliam Vanegas MD, 0.5 mg at 04/18/20 0815 aluminum & magnesium hydroxide-simethicone (MAALOX PLUS REGULAR STRENGTH) 200-200-20 m g/5 mL suspension 30 mL, 30 mL, Oral, Q4H PRN, Wiliam Vanegas MD aspirin EC tablet 81 mg, 81 mg, Oral, Daily, Wiliam Vanegas MD, 81 mg at 08 atorvaSTATin (LIPITOR) tablet 80 mg, 80 mg, Oral, Nightly, Wiliam Vanegas MD , 80 mg at 04/17/20 2100 bisacodyl (DULCOLAX) suppository 10 mg, 10 mg, Rectal, Daily PRN, Wiliam Valerio MD busPIRone (BUSPAR) tablet 15 mg, 15 mg, Oral, BID, Wiliam Vanegas MD, 15 mg at 04/18/20 08 carboxymethylcellulose (PF) (REFRESH CELLUVISC, THERATEARS) 1% ophthalmic gel 1 drop, 1 drop, Both Eyes, Q1H PRN, Wiliam Vanegas MD, 1 drop at 04/14/202021 clonazePAM (klonoPIN) tablet 1 mg, 1 mg, Oral, BID PRN, Wiliam Vanegas MD, 1 mg at 04/18/20 100 cloNIDine (CATAPRES) tablet 0.1 mg, 0.1 mg, Oral, BID, Wiliam Vanegas MD, 0. 1 mg at 04/18/20 08 clopidogrel (PLAVIX) tablet 75 mg, 75 mg, Oral, Daily, Wiliam Vanegas MD, 75 mg at 04/18/20 08 docusate sodium (COLACE) capsule 100 mg, 100 mg, Oral, BID PRN, Wiliam montoya MD, 100 mg at 04/16/20 182 enoxaparin (LOVENOX) 40 mg/0.4 mL injection 40 mg, 40 mg, Subcutaneous, Daily, Wiliam Vanegas MD, 40 mg at 04/18/20 0805 escitalopram (LEXAPRO) tablet 30 mg, 30 mg, Oral, Daily, Wiliam Vanegas MD, 30 mg at 04/18/20 0804 hydrOXYzine hydrochloride (ATARAX) tablet 25 mg, 25 mg, Oral, Q8H PRN, Wiliam Vanegas MD magnesium hydroxide (MILK OF MAGNESIA) 400 mg/5 mL suspension 30 mL, 30 mL, Oral, Nigh tly PRN, Wiliam Vanegas MD nicotine (NICODERM) 14 mg/24 hr 1 patch, 1 patch, Transdermal, Daily, Wiliam Vanegas MD, 1 patch at 04/18/20 0806 ondansetron (ZOFRAN ODT) disintegrating tablet 4 mg, 4 mg, Oral, Q6H PRN, Wiliam Vanegas MD ondansetron (ZOFRAN) injection 4 mg, 4 mg, Intravenous, Q6H PRN, Wiliam Mejía nd, MD pantoprazole (PROTONIX) DR tablet 40 mg, 40 mg, Oral, QAM AC, Wiliam Vanegas MD, 40 mg at 04/18/20 0611 polyethylene glycol (MIRALAX) powder 17 g, 17 g, Oral, Daily PRN, Wiliam Valerio MD prazosin (MINIPRESS) capsule 5 mg, 5 mg, Oral, Nightly, Wiliam Vanegas MD, 5 mg at 04/17/20 2100 senna (SENOKOT) tablet 8.6 mg, 8.6 mg, Oral, BID PRN, Wiliam Vanegas MD, 8.6 mg at 04/16/20 1825 Allergies: Allergies No active allergies Intolerance No active intolerances/contraindications Physical Exam: BP 114/69 | Pulse 72 | Temp 36.9 C (98.4 F) (Oral) | Resp 18 | Ht 1.753 m (5' 9") | Wt 93.8 kg (206 lb 12.7 oz) | SpO2 97% | BMI 30.54 kg/m GEN: Normally developed, sitting in chair, NAD PSYCH: Appropriate, pleasant, cooperative HEENT: moderate left visual field cut, head atraumatic, no bumps, no scrapes. Throat: tongue protrudes in the midline to left and has left facial droop CV: Heart RRR, no m/r/g Lungs: Clear ABD: +BS, soft Extremities: trace edema LE at ankles Neurologic Exam: CN II-XII: grossly intact except a right VII and XII nerve injury Muscle Strength: Right: UE/LE 4+ Left: Shoulder 4, elbow 4, surveying teacher 4, hip 4, knee 4, ankle 4- Sensory: decreased left scalp, face, neck, thorax, leg down to toes, tingling sensation Cognitive exam: Oriented to: Self, name of hospital, city, month, year, day. Follows 1-2 step commands. Moderate left neglect noted. Assessment/Rehab Plan: This is a55 y.o.malewith a history ofhypertension, anxiety, depression who presents with left-sided weakness, mild expressive aphasia and vision deficit with recent concern fo r acute CVA withconcern for progression of event versus new ischemic event. Spoke with p suri and who reports initially presenting to [facility] on 03/19/2020 wi th new onset left-sided weakness, numbness and a syncopal episode. Patient additionally en dorsed left-sided vision deficit. While in the emergency department had a CT head performe d with findings with bilateral white matter changes with concerns for possible demyelinating process and recommended nonemergent brain MRI. The reports that they were concerned there is a possible urinary tract infection but no additional medications were given. Meghana ent symptoms persisted and were able to have a outpatient MRI performed on 04/03 with mildly h emorrhagic right CAR ICER infarct and chronic small vessel ischemic change. As per the , fe lt weakness worsened on left side. Patient was using walker at home with poor coordination . Patient had increased bifrontal headache and prevented to the emergency department at [facility] again. Sent to [facility] for MRI evaluation. Patient and spouse were unable to get outpatient neurology appointment. While in the emergency department a CT scan was performed with right occipital and temporal lobes consistent with subacute ischemia and probable cortical mineralization. 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 PTSD: moderately severe, but under control so far with Klonopin, Xanax -04/14: moderate problems over the weekend. He was on atarax also at home, so I ordered phoenix t, plus he was on bid klonopin at home and would rather avoid the xanax, so I changed that t o BID. -04/15:moved to other side of building from where helicopters land, as they set off his PTSD . -03/29: better with move 5. Hypotension: BP down to 102 this morning, as well as in PT, so I cut back on his clonopi ne to .1mg bid and asked OT to check BP when they first see him -04/14: bp improving, still a little low for post CVA, but no symptoms; lowest systolic wa s 110, but transient and no symptoms, still on BK TEDS. -04/15: bp down to 102, then up to 137, no symptoms, continue TEDS -04/16: down to 112 today, no symptoms, continue to monitor closely. 6. Tobacco Abuse: on nicotine patches and doing ok for now. -04/14-: stable on nicotine patches. # Pain: MSK pain Tylenol, PRN narco. #Bowel/Bladder: Bowel and bladder program started per IPR protocol. Adjustments and treatm ents as needed based upon results, including PVR's, IC, suppositories, enemas, and PO meds. #Diet - Current active diet order is: Diet Diet fat and cholesterol modified; Effective Now Code Status: Full Code Dispo: Home with HH and Planned f/u: Primary Caregiver 2 weeks: ELOS: 04/21/20 Total time of 18 minutes was spent with the patient and/or patient's family, and/or on the patient's floor/unit, of which more than 50% was spent counseling and/or coordination the pa tient's care as outlined above. Signed: Deacon Vanegas MD Portions of this chart may have been created with [employer] voice recognition software. Occasi onal wrong-word or sound-alike substitutions may have occurred due to the inherent phillips itations of voice recognition software. Please read the chart carefully and recognize, using context, where these substitutions have occurred. Rufino Maldonado MD - 04/15/2020 2:34 PM PDTFormatting of this note might be different from th e original. [id number] Daily Progress Note Date: 04/15/20 ID/CC: Efren Menard a 55 y.o.malewho was admitted to [facility] on 04/08/20 20for Cerebrovascular accident (CVA), unspecified mechanism (HCC) [I63.9]. PM&R consulta tion was requested by Dr. Pierre att. providers foundto provide an opinion regarding Efren Hansennrehabilitation needs. Interval history: BP 102-137 today, therapists aware and checking bp when seeing him, continue TEDS for now. Down to .1mb clonidine bid and minipress helps his PSTS, so will not change these meds for now. PSTD still a problem with episodic feelings of panic, worsened by hearing helicopter at [facility], so switched to opposite side of building today. Still tending to run into things on the left and left neglect is in the moderate range, so between the hemianopsia and neglect, he's still significantly involved, but improving. This was reviewed in team conference today and ELOS set. Past Medical History: Past Medical History: Diagnosis Date Hypertension Current Meds: Current Facility-Administered Medications: acetaminophen (TYLENOL) 160 mg/5 mL liquid 650 mg, 650 mg, Per NG tube, Q4H PRN OR acetaminophen (TYLENOL) tablet 650 mg, 650 mg, Oral, Q4H PRN, 650 mg at 04/15/20 1132 OR* * acetaminophen (TYLENOL) suppository 650 mg, 650 mg, Rectal, Q4H PRN, Wiliam Mejía nd, MD ALPRAZolam (XANAX) tablet 0.5 mg, 0.5 mg, Oral, TID PRN, Wiliam Vanegas MD, 0.5 mg at 04/15/20 1132 aluminum & magnesium hydroxide-simethicone (MAALOX PLUS REGULAR STRENGTH) 200-200-20 m g/5 mL suspension 30 mL, 30 mL, Oral, Q4H PRN, Wiliam Vanegas MD aspirin EC tablet 81 mg, 81 mg, Oral, Daily, Wiliam Vanegas MD, 81 mg at 0803 atorvaSTATin (LIPITOR) tablet 80 mg, 80 mg, Oral, Nightly, Wiliam Vanegas MD , 80 mg at 04/14/202019 bisacodyl (DULCOLAX) suppository 10 mg, 10 mg, Rectal, Daily PRN, Wiliam Valerio MD busPIRone (BUSPAR) tablet 15 mg, 15 mg, Oral, BID, Wiliam Vanegas MD, 15 mg at 04/15/20802 carboxymethylcellulose (PF) (REFRESH CELLUVISC, THERATEARS) 1% ophthalmic gel 1 drop, 1 drop, Both Eyes, Q1H PRN, Wiliam Vanegas MD, 1 drop at 04/14/202021 clonazePAM (klonoPIN) tablet 1 mg, 1 mg, Oral, BID PRN, Wiliam Vanegas MD, 1 mg at 04/15/20802 cloNIDine (CATAPRES) tablet 0.1 mg, 0.1 mg, Oral, BID, Wiliam Vanegas MD, 0. 1 mg at 04/15/20802 clopidogrel (PLAVIX) tablet 75 mg, 75 mg, Oral, Daily, Wiliam Vanegas MD, 75 mg at 04/15/20 08 docusate sodium (COLACE) capsule 100 mg, 100 mg, Oral, BID PRN, Wiliam montoya MD enoxaparin (LOVENOX) 40 mg/0.4 mL injection 40 mg, 40 mg, Subcutaneous, Daily, Wiliam Vanegas MD, 40 mg at 04/15/20 0804 escitalopram (LEXAPRO) tablet 30 mg, 30 mg, Oral, Daily, Wiliam Vanegas MD, 30 mg at 04/15/20 0802 hydrOXYzine hydrochloride (ATARAX) tablet 25 mg, 25 mg, Oral, Q8H PRN, Wiliam Vanegas MD magnesium hydroxide (MILK OF MAGNESIA) 400 mg/5 mL suspension 30 mL, 30 mL, Oral, Nigh tly PRN, Wiliam Vanegas MD nicotine (NICODERM) 14 mg/24 hr 1 patch, 1 patch, Transdermal, Daily, Wiliam Vanegas MD, 1 patch at 04/15/20 0804 ondansetron (ZOFRAN ODT) disintegrating tablet 4 mg, 4 mg, Oral, Q6H PRN, Wiliam Vanegas MD ondansetron (ZOFRAN) injection 4 mg, 4 mg, Intravenous, Q6H PRN, Wiliam Mejía nd, MD pantoprazole (PROTONIX) DR tablet 40 mg, 40 mg, Oral, QAM AC, Wiliam Vanegas MD, 40 mg at 04/15/20 0558 polyethylene glycol (MIRALAX) powder 17 g, 17 g, Oral, Daily PRN, Wiliam Valerio MD prazosin (MINIPRESS) capsule 5 mg, 5 mg, Oral, Nightly, Wiliam Vanegas MD, 5 mg at 04/14/202020 senna (SENOKOT) tablet 8.6 mg, 8.6 mg, Oral, BID PRN, Wiliam Vanegas MD Allergies: Allergies No active allergies Intolerance No active intolerances/contraindications Physical Exam: BP 102/61 | Pulse 67 | Temp 35.6 C (96.1 F) (Oral) | Resp 18 | Ht 1.753 m (5' 9") | Wt 92.5 kg (203 lb 14.8 oz) | SpO2 96% | BMI 30.11 kg/m GEN: Normally developed, sitting in OT, NAD PSYCH: Appropriate, pleasant, cooperative HEENT: left visual field cut Throat: tongue protrudes in the midline to left and has left facial droop CV: Heart RRR, no m/r/g Lungs: Clear ABD: +BS, soft Extremities: trace edema LE at ankles Neurologic Exam: CN II-XII: grossly intact except a right VII and XII nerve injury Muscle Strength: Right: UE/LE 4+ Left: Shoulder 4-, elbow 4, surveying teacher 4, hip 4-, knee 4-, ankle 4- Sensory: decreased left scalp, face, neck, thorax, leg down to toes, tingling sensation Cognitive exam: Oriented to: Self, name of hospital, city, month, year, day. Follows 1-2 step commands. Moderate left neglect noted. Assessment/Rehab Plan: This is a55 y.o.malewith a history ofhypertension, anxiety, depression who presents with left-sided weakness, mild expressive aphasia and vision deficit with recent concern fo r acute CVA withconcern for progression of event versus new ischemic event. Spoke with p atient and who reports initially presenting to [facility] on 03/19/2020 wi th new onset left-sided weakness, numbness and a syncopal episode. Patient additionally en dorsed left-sided vision deficit. While in the emergency department had a CT head performe d with findings with bilateral white matter changes with concerns for possible demyelinating process and recommended nonemergent brain MRI. The reports that they were concerned there is a possible urinary tract infection but no additional medications were given. Meghana ent symptoms persisted and were able to have a outpatient MRI performed on 04/03 with mildly h emorrhagic right CAR ICER infarct and chronic small vessel ischemic change. As per the , fe lt weakness worsened on left side. Patient was using walker at home with poor coordination . Patient had increased bifrontal headache and prevented to the emergency department at [facility] again. Sent to [facility] for MRI evaluation. Patient and spouse were unable to get outpatient neurology appointment. While in the emergency department a CT scan was performed with right occipital and temporal lobes consistent with subacute ischemia and probable cortical mineralization. 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 Patient does have a longstanding smoking history currently smoking 4 cigarettes/day[address] Dr. Rios set him up with nicotine patches and warmed him not to smoke again. He has done well in all therapies and thus is to be admitted to [facility] with the goal of home w ith his , after we got approval from the [place] to admit [place]. Patient is benefiting from inpatient rehabilitation since he needs physical therapy, occup ational therapy, speech therapy, social service director, physiatric and nursing intervention. #Rehab - -Continue PT for gait, transfers, braces, wheelchair versus walker evaluation. -Continue OT for adl's, self care, home eval, equipment, cognition, safety -Continue SAND WORKER for cognition, safety -Continue SW for discharge planning IMPRESSION/OVERALL PLAN: 1. CVA with left hemiparesis: mild. Main barrier is d/c his sensory loss and field cut -: strength good, function improving. 2. 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 He also tends to ignore the left side -: improving, but still moderate left sided neglect noted, especially with fatigue. 3. Left visual field cut: moderate. Learning to compensate, but still tends to run into th ing on the left -04/14-: improving, but still significant problem and probably main barrier to independent and safe living. 4. PTSD: moderately severe, but under control so far with Klonopin, Xanax -04/14: moderate problems over the weekend. He was on atarax also at home, so I ordered phoenix t, plus he was on bid klonopin at home and would rather avoid the xanax, so I changed that t o BID. -04/15:moved to other side of building from where helicopters land, as they set off his PTSD . 5. Hypotension: BP down to 102 this morning, as well as in PT, so I cut back on his clonopi ne to .1mg bid and asked OT to check BP when they first see him -04/14: bp improving, still a little low for post CVA, but no symptoms; lowest systolic wa s 110, but transient and no symptoms, still on BK TEDS. -04/15: bp down to 102, then up to 137, no symptoms, continue TEDS 6. Tobacco Abuse: on nicotine patches and doing ok for now. -04/14-: stable on nicotine patches. # Pain: MSK pain Tylenol, PRN narco. #Bowel/Bladder: Bowel and bladder program started per IPR protocol. Adjustments and treatm ents as needed based upon results, including PVR's, IC, suppositories, enemas, and PO meds. #Diet - Current active diet order is: Diet Diet fat and cholesterol modified; Effective Now Code Status: Full Code Dispo: Home with HH and Planned f/u: Primary Caregiver 2 weeks: ELOS: 04/21/20 Total time of 26 minutes was spent with the patient and/or patient's family, and/or on the patient's floor/unit, of which more than 50% was spent counseling and/or coordination the pa tient's care as outlined above. Signed: Deacon Vanegas MD Portions of this chart may have been created with [employer] voice recognition software. Occasi onal wrong-word or sound-alike substitutions may have occurred due to the inherent phillips itations of voice recognition software. Please read the chart carefully and recognize, using context, where these substitutions have occurred. uilherme, Rufino Christie MD - 04/14/2020 1:02 PM PDTFormatting of this note might be different from aaron soriano original. [id number] Rehabilitation Medicine Daily Progress Note Date: 04/14/20 ID/CC: Efren Menard a 55 y.o.malewho was admitted to [facility] on 04/08/20 20for Cerebrovascular accident (CVA), unspecified mechanism (HCC) [I63.9]. PM&R consulta tion was requested by Dr. Pierre att. providers foundto provide an opinion regarding Efren Hansennrehabilitation needs. Interval history: BP a little low at 110 systolic transiently and no symptoms. PSTD still a problem with episodic feelings of panic. He uses Klonopin bid at home, so lisa nged to that dosing, plus added atarax he was also on at home. Still tending to run into things on the left and left neglect is in the moderate range, so between the hemianopsia and neglect, he's still significantly involved, but improving. Past Medical History: Past Medical History: Diagnosis Date Hypertension Current Meds: Current Facility-Administered Medications: acetaminophen (TYLENOL) 160 mg/5 mL liquid 650 mg, 650 mg, Per NG tube, Q4H PRN OR acetaminophen (TYLENOL) tablet 650 mg, 650 mg, Oral, Q4H PRN, 650 mg at 04/14/20 0609 OR* * acetaminophen (TYLENOL) suppository 650 mg, 650 mg, Rectal, Q4H PRN, Wiliam Mejía nd, MD ALPRAZolam (XANAX) tablet 0.5 mg, 0.5 mg, Oral, TID PRN, Wiliam Vanegas MD, 0.5 mg at 04/14/20 1035 aluminum & magnesium hydroxide-simethicone (MAALOX PLUS REGULAR STRENGTH) 200-200-20 m g/5 mL suspension 30 mL, 30 mL, Oral, Q4H PRN, Wiliam Vanegas MD aspirin EC tablet 81 mg, 81 mg, Oral, Daily, Wiliam Vanegas MD, 81 mg at 0824 atorvaSTATin (LIPITOR) tablet 80 mg, 80 mg, Oral, Nightly, Wiliam Vanegas MD , 80 mg at 04/13/202035 bisacodyl (DULCOLAX) suppository 10 mg, 10 mg, Rectal, Daily PRN, Wiliam Valerio MD busPIRone (BUSPAR) tablet 15 mg, 15 mg, Oral, BID, Wiliam Vanegas MD, 15 mg at 04/14/20823 clonazePAM (klonoPIN) tablet 1 mg, 1 mg, Oral, BID PRN, Wiliam Vanegas MD cloNIDine (CATAPRES) tablet 0.1 mg, 0.1 mg, Oral, BID, Wiliam Vanegas MD, 0. 1 mg at 04/14/20823 clopidogrel (PLAVIX) tablet 75 mg, 75 mg, Oral, Daily, Wiliam Vanegas MD, 75 mg at 04/14/20824 docusate sodium (COLACE) capsule 100 mg, 100 mg, Oral, BID PRN, Wiliam montoya MD enoxaparin (LOVENOX) 40 mg/0.4 mL injection 40 mg, 40 mg, Subcutaneous, Daily, Wiliam Vanegas MD, 40 mg at 04/14/20824 escitalopram (LEXAPRO) tablet 30 mg, 30 mg, Oral, Daily, Wiliam Vanegas MD, 30 mg at 04/14/20823 magnesium hydroxide (MILK OF MAGNESIA) 400 mg/5 mL suspension 30 mL, 30 mL, Oral, Nigh tly PRN, Wiliam Vanegas MD nicotine (NICODERM) 14 mg/24 hr 1 patch, 1 patch, Transdermal, Daily, Wiliam Vanegas MD, 1 patch at 04/14/20824 ondansetron (ZOFRAN ODT) disintegrating tablet 4 mg, 4 mg, Oral, Q6H PRN, Wiliam Vanegas MD ondansetron (ZOFRAN) injection 4 mg, 4 mg, Intravenous, Q6H PRN, Wiliam Mejía nd, MD pantoprazole (PROTONIX) DR tablet 40 mg, 40 mg, Oral, QAM AC, Wiliam Vanegas MD, 40 mg at 04/14/20605 polyethylene glycol (MIRALAX) powder 17 g, 17 g, Oral, Daily PRN, Wiliam Valerio MD prazosin (MINIPRESS) capsule 5 mg, 5 mg, Oral, Nightly, Wiliam Vanegas MD, 5 mg at 04/13/202035 senna (SENOKOT) tablet 8.6 mg, 8.6 mg, Oral, BID PRN, Wiliam Vanegas MD Allergies: Allergies No active allergies Intolerance No active intolerances/contraindications Physical Exam: BP 129/74 | Pulse 63 | Temp 36.3 C (97.4 F) (Oral) | Resp 18 | Ht 1.753 m (5' 9") | Wt 92.5 kg (203 lb 14.8 oz) | SpO2 97% | BMI 30.11 kg/m GEN: Normally developed, sitting in chair, NAD PSYCH: Appropriate, pleasant, cooperative HEENT: EOMI, PERRL, anicteric sclera, left visual field cut Throat: tongue protrudes in the midline to left and has left facial droop CV: Heart RRR, no m/r/g Lungs: Clear ABD: +BS, soft Extremities: trace edema LE at ankles Neurologic Exam: CN II-XII: grossly intact except a right VII and XII nerve injury Muscle Strength: Right: UE/LE 4+ Left: Shoulder 4-, elbow 4, surveying teacher 4, hip 4-, knee 4-, ankle 4- Sensory: decreased left scalp, face, neck, thorax, leg down to toes, tingling sensation Cognitive exam: Oriented to: Self, name of hospital, city, month, year, day. Follows 1-2 step commands Labs: Recent Results (from the past 48 hour(s)) POC Glucose Result Value Ref Range Glucose, POC 107 70 - 109 mg/dL POC Glucose Result Value Ref Range Glucose, POC 90 70 - 109 mg/dL Assessment/Rehab Plan: This is a55 y.o.malewith a history ofhypertension, anxiety, depression who presents with left-sided weakness, mild expressive aphasia and vision deficit with recent concern fo r acute CVA withconcern for progression of event versus new ischemic event. Spoke with p atient and who reports initially presenting to [facility] on 03/19/2020 wi th new onset left-sided weakness, numbness and a syncopal episode. Patient additionally en dorsed left-sided vision deficit. While in the emergency department had a CT head performe d with findings with bilateral white matter changes with concerns for possible demyelinating process and recommended nonemergent brain MRI. The reports that they were concerned there is a possible urinary tract infection but no additional medications were given. Meghana ent symptoms persisted and were able to have a outpatient MRI performed on 04/03 with mildly h emorrhagic right CAR ICER infarct and chronic small vessel ischemic change. As per the , fe lt weakness worsened on left side. Patient was using walker at home with poor coordination . Patient had increased bifrontal headache and prevented to the emergency department at [facility] again. Sent to [facility] for MRI evaluation. Patient and spouse were unable to get outpatient neurology appointment. While in the emergency department a CT scan was performed with right occipital and temporal lobes consistent with subacute ischemia and probable cortical mineralization. 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 Patient does have a longstanding smoking history currently smoking 4 cigarettes/day. Dr. Rios set him up with nicotine patches and warmed him not to smoke again. He has done well in all therapies and thus is to be admitted to [facility] with the goal of home w ith his , after we got approval from the [place] to admit [place]. Patient is benefiting from inpatient rehabilitation since he needs physical therapy, occup ational therapy, speech therapy, social service director, physiatric and nursing intervention. #Rehab - -Continue PT for gait, transfers, braces, wheelchair versus walker evaluation. -Continue OT for adl's, self care, home eval, equipment, cognition, safety -Continue SAND WORKER for cognition, safety -Continue SW for discharge planning IMPRESSION/OVERALL PLAN: 1. CVA with left hemiparesis: mild. Main barrier is d/c his sensory loss and field cut -04/14: strength good, function improving. 2. 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 He also tends to ignore the left side -04/14: improving, but still moderate left sided neglect noted, especially with fatigue. 3. Left visual field cut: moderate. Learning to compensate, but still tends to run into th ing on the left -04/14: improving, but still significant problems. 4. PTSD: moderately severe, but under control so far with Lucas Xanax -04/14: moderate problems over the weekend. He was on atarax also at home, so I ordered phoenix t, plus he was on bid klonopin at home and would rather avoid the xanax, so I changed that t o BID. 5. Hypotension: BP down to 102 this morning, as well as in PT, so I cut back on his clonopi ne to .1mg bid and asked OT to check BP when they first see him -04/14: bp improving, still a little low for post CVA, but no symptoms; lowest systolic wa s 110, but transient and no symptoms, still on BK TEDS. 6. Tobacco Abuse: on nicotine patches and doing ok for now. -04/14: stable on nicotine patches. # Pain: MSK pain Tylenol, PRN narco. #Bowel/Bladder: Bowel and bladder program started per IPR protocol. Adjustments and treatm ents as needed based upon results, including PVR's, IC, suppositories, enemas, and PO meds. #Diet - Current active diet order is: Diet Diet fat and cholesterol modified; Effective Now Code Status: Full Code Dispo: Home with HH and Planned f/u: Primary Caregiver 2 weeks: ELOS: 04/21/20 Total time of 27 minutes was spent with the patient and/or patient's family, and/or on the patient's floor/unit, of which more than 50% was spent counseling and/or coordination the pa tient's care as outlined above. Signed: Deacon Vanegas MD Portions of this chart may have been created with [employer] voice recognition software. Occasi onal wrong-word or sound-alike substitutions may have occurred due to the inherent phillips itations of voice recognition software. Please read the chart carefully and recognize, using context, where these substitutions have occurred. Lydia Samaniego PharmD - 04/11/2020 11:26 AM PDTFormatting of this note might be different from the blane hernandez. PHARMACY SERVICES: ADMISSION MEDICATION REVIEW Efren Pollack is a 55 y.o. male admitted on 04/08/2020 (transferred to Inpatient Rehab o n 04/10/2020.) Patient is a reliable historian. Location of Patient when reviewed: MEDICAL FLOOR Patient s prior to admit medication and over the counter (OTC) medications/herbal supplem ents list obtained from: X Verbal interview with patient who was ABLE TO RECALL MOST name, strength, and directions X Doctor's office: [facility] and KATHERINE G[facility]mez Pharmacy list names: [facility], [facility] State Prescription Monitoring Program ([place]) Vaccines up to date? Influenza Yes Pneumococcal Yes Tdap Yes Shingles No Noted medications discrepancies or medication-related issues: Dosage/Form/Frequency change: [employer]ER Medication: Prior to Admission Sig: Correct Dosage/Form: Correct Sig: Patient taking di fferently as: Acetaminophen 325 mg tab 2 tabs by mouth every 4 hours as needed for pain Acetaminophen 500 mg tab 2 tabs by mouth every 6 hours as needed for headache 3 tabs by mouth every morning as scheduled dose And 3 tabs by mouth nightly as needed for headache Alprazolam 0.5 mg tab 1 tab by mouth three times daily as needed for anxiety 1 tab by cristy th daily as needed at onset of panic attack 1 tab by mouth daily as scheduled dose And 1 tab by mouth as needed at onset of panic attack Buspirone 15 mg tab 1 tab by mouth twice daily Buspirone 10 mg tab 10 mg by mouth twice da aline for 5 days Then 10 mg by mouth every morning and 15 mg every evening for 5 days Then 15 mg by mouth twice daily 10 mg by mouth twice daily Patient started therapy 03/30/2020 and was due to increase dose on 2020 but has not yet due to "chaos" at home. Clonazepam 1 mg tab 1 tab by mouth nightly as needed for anxiety 1 tab by mouth nightly a nd 1 tab as needed for onset panic attack (give with Alprazolam) 1 tab by mouth every eveni ng around 16:00 to help him wind down before bed. Patient states he does not take 2nd dose as needed as the medication makes him too drowsy . Escitalopram 10 mg tab 30 mg by mouth daily Escitalopram 20 mg tab 30 mg by mouth daily Hydroxyzine 50 mg tab 100 mg by mouth three times daily as needed for itching Hydroxyzine pamoate 50 mg cap 1 to 2 caps by mouth twice daily as needed for anxiety 2 caps by mouth da aline as scheduled dose Patient states he takes this as a routine dose to help "keep things in line" with his anx iety Melatonin 1 mg tab 10 mg by mouth nightly as needed for sleep Melatonin 10 mg tab 10 mg by mouth nightly Patient normally takes nightly but ran out of medication ~1 months ago. He intends to restart after discharge. Medication added: Medication: Prior to Admission Sig: Patient taking differently as: Clonidine 0.3 mg tab 0.15 mg by mouth twice daily for mood and blood pressure 0.3 mg by mo uth twice daily Patient [facility] but [facility] is [facility]. Prazosin 2 mg cap 2 mg by mouth nightly Still taking though dose increased to 5 mg nightly Patient has not yet increased dose due to "chaos" at home. Sildenafil 100 mg tab 1 tab by mouth daily as needed for erectile dysfunction. No more than 4 tablets per month Lidocaine 5% patch 1 patch topically daily. Leave on for 12 hours off for 12 hours. 1 patc h topically daily as needed for pain Patient states not needed daily as Tylenol has been effective in treating his pain. Calcium carbonate 500 mg chew tab 2 tabs by mouth daily as needed for heartburn Artificial tears ophth sabine 2 to 3 drops into both eyes twice daily as needed for dry/itchy eyes Recreational Substances, Tobacco & Alcohol use/frequency: X Tobacco: smoke- 0.5 packs per day. Last used: 03/31/2020 X Alcohol: ~1 beer every 2 weeks. Last used: ~3 weeks ago X Recreational substances: Marijuana- smoke twice daily. Last used: 03/31/2020 Other: Medications not yet started by patient as they were ordered by Dr. Rios on 04/10/2020 prio r to transfer to IRF: Aspirin Atorvastatin Clopidogrel Medication: Prior to Admission Sig: Patient taking differently BEL[employer]OR [employer] as: Clonidine 0.2 mg tab 0.2 mg by mouth twice daily Not taking Please note that the prescription was ordered by KATHERINE Galarza on 2020 #60/30 a nd filled at [facility] pharmacy. However, patient is not taking it nor should he be taking the m per Francisco Cross's office. Prazosin 5 mg cap 1 cap by mouth nightly Not taking Patient has not yet increased dose due to "chaos" at home Best possible [employer] CON[employer]OR [employer] medication list after pharmacy review: PT REPORTED TAKING NOT TAKING Medication Sig Last Dose Dispense Doc. Medina acetaminophen (TYLENOL) 500 mg tablet Take 1,000 mg by mouth every 6 hours as needed for H eadaches. Taking Differently Abran Medina MD ALPRAZolam (XANAX) 0.5 mg tablet Take 0.5 mg by mouth Daily as needed. At onset of panic a ttack Taking Differently Abran Medina MD ARTIFICIAL TEAR SOLUTION OP Apply 2-3 drops to eye Twice daily as needed (dry/itchy eyes) . Taking Abran Medina MD aspirin 81 MG EC tablet Take 1 tablet by mouth Daily. Patient not taking: Reported on 03/28 Not Taking 30 tablet Kristopher Rios MD atorvaSTATin (LIPITOR) 80 MG tablet Take 1 tablet by mouth nightly. Patient not taking: R eported on 04/11/2020 Not Taking 30 tablet Kristopher Rios MD busPIRone (BUSPAR) 10 MG tablet Take 10 mg by mouth 2 times daily. For 5 days Taking Anitha MURPHY busPIRone (BUSPAR) 10 MG tablet Take 10 mg by mouth every morning and 15 mg every evening for 5 days. Not Taking Francisco MURPHY busPIRone (BUSPAR) 10 MG tablet Take 15 mg by mouth 2 times daily. Not Taking Francisco MURPHY calcium carbonate (TUMS) 500 mg chewable tablet Chew and swallow 2 tablets Daily as needed for Heartburn. Taking Abran Medina MD clonazePAM (KLONOPIN) 1 mg tablet Take 1 mg by mouth nightly. Taking Differently Kylee Allen MD clonazePAM (KLONOPIN) 1 mg tablet Take 1 mg by mouth as needed. At onset of panic attack. No more than 2 tablets per day. (Give with Alprazolam) Not Taking Francisco MURPHY cloNIDine (CATAPRES) 0.2 MG tablet Take 0.2 mg by mouth 2 times daily. Not Taking Sundar Medina MD cloNIDine (CATAPRES) 0.3 MG tablet Take 0.15 mg by mouth 2 times daily. Taking Differently Francisco MURPHY clopidogrel (PLAVIX) 75 mg tablet Take 1 tablet by mouth Daily. Patient not taking: Repor singh on 04/11/2020 Not Taking 30 tablet Kristopher Rios MD escitalopram (LEXAPRO) 20 mg tablet Take 30 mg by mouth Daily. Taking Historical Provider MD hydrOXYzine (VISTARIL) 50 MG capsule Take 50-100 mg by mouth Twice daily as needed for An xiety. Taking Differently Historical MD Carol lidocaine (LIDODERM) 5% patch Place 1 patch onto the skin Daily. Apply for 12 hours, then remove for 12 hours. Taking Differently Historical MD Carol Melatonin 10 MG TABS Take 10 mg by mouth nightly. Not Taking Historical MD Carol prazosin (MINIPRESS) 2 MG capsule Take 2 mg by mouth nightly. Taking Differently Historic al MD Carol prazosin (MINIPRESS) 5 mg capsule Take 5 mg by mouth nightly. Not Taking Historical Provi MD altagracia sildenafil (VIAGRA) 100 MG tablet Take 100 mg by mouth as needed for Erectile Dysfunction. Not to exceed 4 tabs in 1 month Taking Abran Medina MD Medication review performed and electronically signed by Malgorzata Iyer, Color Card Maker 10:20 AM Reviewed by Renea Del Valle, PharmD 04/11/2020 11:24 AM documented in thi s encounter H&P Notes Wiliam Vanegas MD - 04/11/2020 4:22 PM PDTFormatting of this note might be diff erent from the original. IPR Admission: H&P/Post-admission PE/Overall Plan of Care History and Physical: Patient name: Efren Pollack : 1965 Date of Admission: 04/10/2020 Attending Physician: Wiliam Vanegas MD, PhD Primary Rehab Diagnosis: Stroke 01.1 Left body involvement (right brain) Comorbid Conditions/Problem List from Acute: Patient Active Problem List Diagnosis Ischemic cerebrovascular accident (CVA) Hypertension Tobacco abuse Rehabilitation Issues: Weakness Gait dysfunction Decreased balance Dyscoordination Cognitive deficits Sensory loss Visual impairment Dysphagia Aphasia Functional Deficits: Impaired mobility Impaired ADLs/iADLs Impaired community reintegration Impaired communication Impaired swallow CC/ID: Efren Pollack is a 55 y.o. male who was admitted to [facility] on 04/08/2020 for Cerebrovascular accident (CVA), unspecified mechanism (HCC) [I63.9]. PM&R consultation was requested by Dr. Gabby tyson. providers found to provide an opinion regarding Efren Burnham en rehabilitation needs. HISTORY OF PRESENT ILLNESS: This is a55 y.o.malewith a history ofhypertension, anxiety, depression who presents with left-sided weakness, mild expressive aphasia and vision deficit with recent concern fo r acute CVA withconcern for progression of event versus new ischemic event. Spoke with p suri and who reports initially presenting to [facility] on 03/19/2020 wi th new onset left-sided weakness, numbness and a syncopal episode. Patient additionally en dorsed left-sided vision deficit. While in the emergency department had a CT head performe d with findings with bilateral white matter changes with concerns for possible demyelinating process and recommended nonemergent brain MRI. The reports that they were concerned there is a possible urinary tract infection but no additional medications were given. Meghana ent symptoms persisted and were able to have a outpatient MRI performed on 04/03 with mildly h emorrhagic right CAR ICER infarct and chronic small vessel ischemic change. As per the , fe lt weakness worsened on left side. Patient was using walker at home with poor coordination . Patient had increased bifrontal headache and prevented to the emergency department at [facility] again. Sent to [facility] for MRI evaluation. Patient and spouse were unable to get outpatient neurology appointment. While in the emergency department a CT scan was performed with right occipital and temporal lobes consistent with subacute ischemia and probable cortical mineralization. 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 Patient does have a longstanding smoking history currently smoking 4 cigarettes/day. Dr. Rios set him up with nicotine patches and warmed him not to smoke again. He has done well in all therapies and thus is to be admitted to [facility] with the goal of home w ith his , after we got approval from the [place] to admit him. Review of Systems: Constitutional - denies fevers/chills, denies fatigue Eyes - denies diplopia, denies double vision, has left hemianopsia ENT denies sore throat, denies swallowing difficulty Card - denies CP, denies palpitations Pulm - denies dyspnea, cough Abd - denies n/v, denies diarrhea/constipation Vascular/Extremities - denies cold extremities, denies LE swelling Neuro - Denies previous CVA MSK - denies muscle pain, denies joint pain Endocrine - denies heat/cold intolerance Skin - denies open sores Psych - has PTSD with anxiety/panic atacks - denies dysuria, frequency, incontinence All denies rash, denies pruritis Hematologic- denies easy bruising or bleeding, denies weight loss PMHx: Past Medical History: Diagnosis Date Hypertension PSx: No past surgical history on file. Meds During Hospitalization Current Facility-Administered Medications Medication Dose Route Frequency Provider Last Rate Last Dose acetaminophen (TYLENOL) 160 mg/5 mL liquid 650 mg 650 mg Per NG tube Q4H PRN Wiliam Vanegas MD Or acetaminophen (TYLENOL) tablet 650 mg 650 mg Oral Q4H PRN Wiliam Vanegas MD 650 mg at 04/11/20 1223 Or acetaminophen (TYLENOL) suppository 650 mg 650 mg Rectal Q4H PRN Wiliam Mejía nd, MD ALPRAZolam (XANAX) tablet 0.5 mg 0.5 mg Oral TID PRN Wiliam Vanegas MD 0.5 mg at 04/11/20 1044 aluminum & magnesium hydroxide-simethicone (MAALOX PLUS REGULAR STRENGTH) 200-200-20 mg /5 mL suspension 30 mL 30 mL Oral Q4H PRN Wiliam Vanegas MD aspirin EC tablet 81 mg 81 mg Oral Daily Wiliam Vanegas MD 81 mg at 08 atorvaSTATin (LIPITOR) tablet 80 mg 80 mg Oral Nightly Wiliam Vanegas MD 8 0 mg at 04/10/202034 bisacodyl (DULCOLAX) suppository 10 mg 10 mg Rectal Daily PRN Wiliam Vanegas MD busPIRone (BUSPAR) tablet 15 mg 15 mg Oral BID Wiliam Vanegas MD 15 mg at 04/11/20 08 clonazePAM (klonoPIN) tablet 1 mg 1 mg Oral Nightly PRN Wiliam Vanegas MD 1 mg at 04/10/202035 cloNIDine (CATAPRES) tablet 0.2 mg 0.2 mg Oral BID Wiliam Vanegas MD 0.2 m g at 04/11/20 08 clopidogrel (PLAVIX) tablet 75 mg 75 mg Oral Daily Wiliam Vanegas MD 75 mg at 04/11/20 0808 docusate sodium (COLACE) capsule 100 mg 100 mg Oral BID PRN Ollie Barksdale enoxaparin (LOVENOX) 40 mg/0.4 mL injection 40 mg 40 mg Subcutaneous Daily Wiliam Vanegas MD 40 mg at 04/11/20 0809 escitalopram (LEXAPRO) tablet 30 mg 30 mg Oral Daily Wiliam Vanegas MD 30 mg at 04/11/20 0807 [START ON 04/12/2020] magnesium hydroxide (MILK OF MAGNESIA) 400 mg/5 mL suspension 30 m L 30 mL Oral Nightly PRN Wiliam Vanegas MD nicotine (NICODERM) 14 mg/24 hr 1 patch 1 patch Transdermal Daily Wiliam Valerio MD 1 patch at 04/11/20 08 ondansetron (ZOFRAN ODT) disintegrating tablet 4 mg 4 mg Oral Q6H PRN Wiliam Vanegas MD ondansetron (ZOFRAN) injection 4 mg 4 mg Intravenous Q6H PRN Wiliam Vanegas MD pantoprazole (PROTONIX) DR tablet 40 mg 40 mg Oral QAM AC Wiliam Vanegas MD 40 mg at 04/11/20 06 polyethylene glycol (MIRALAX) powder 17 g 17 g Oral Daily PRN Wiliam Vanegas MD prazosin (MINIPRESS) capsule 5 mg 5 mg Oral Nightly Wiliam Vanegas MD 5 mg at 04/10/202035 senna (SENOKOT) tablet 8.6 mg 8.6 mg Oral BID PRN Wiliam Vanegas MD Allergies: Allergies No active allergies Intolerance No [...] file Gets together: Not on file Attends yarsani service: Not on file Active member of [...] on file Lives with spouse in a 4 story home with 1 stairs to enter. Bedroom and shower on 1st floor . Functional History: PRIOR FUNCTION: Patient was independent in mobility, self-care, swallowing, bladder/bowel, communication, cognition. Current Function: Report Date 04/11/2020 [facility]F-UCHE Bed Transfer Score: 4 [facility]F-UCHE Walk Score: 3 [facility]F-UCHE Distance Walked(feet): 50 Physical Exam: BP 109/66 | Pulse 64 | Temp 35.6 C (96 F) (Oral) | Resp 18 | Ht 1.753 m (5' 9") | Wt 92.5 kg (203 lb 14.8 oz) | SpO2 98% | BMI 30.11 kg/m Body mass index is 30.11 kg/m. GEN: Normally developed, resting in bed, NAD PSYCH: Appropriate, pleasant, cooperative HEENT: EOMI, PERRL, anicteric sclera Throat: tongue protrudes in the midline to left and has left facial droop Neck: Supple with no LAD CV: Heart RRR, no m/r/g Lungs: Clear ABD: +BS, soft Extremities: trace edema LE at ankles : No hawkins Neurologic Exam: CN II-XII: grossly intact except a right VII and XII nerve injury Muscle Strength: Right: UE/LE 4+ Left: Shoulder 4-, elbow 4, surveying teacher 4, hip 4-, knee 4-, ankle 4- Sensory: decreased left scalp, face, neck, thorax, leg down to toes, tingling sensation Cerebellar: FNF: Right ok, Left ok HS: Right mildly decreased, Left mildly decreased Cognitive exam: Oriented to: Self, name of hospital, city, month, year, day. Follows 1-2 step commands Physical exam compared to the preadmission screen: No change Labs: Recent Results (from the past 48 hour(s)) Basic Metabolic Panel Collection Time: 04/11/20 6:29 AM Result Value Ref Range Na 141 136 - 145 mmol/L K 4.3 3.4 - 5.1 mmol/L Cl 112 (H) 98 - 107 mmol/L CO2 25 20 - 31 mmol/L Anion Gap 4 3 - 16 mmol/L Glucose 90 60 - 106 mg/dL BUN 9 9 - 23 mg/dL Creatinine 0.76 0.70 - 1.30 mg/dL eGFR if not >60 >=60 mL/min/1.73m2 Calcium 9.9 8.7 - 10.4 mg/dL BUN/Creatinine Ratio 11.8 CBC with Differential Collection Time: 04/11/20 7:01 AM Result Value Ref Range WBC 6.5 4.0 - 11.0 K/uL RBC 4.43 4.30 - 5.70 M/uL Hemoglobin 15.2 13.5 - 18.0 g/dL Hematocrit 43.9 40.0 - 51.0 % MCV 99.1 83.0 - 101.0 fL MCH 34.3 28.0 - 35.0 pg MCHC 34.6 32.0 - 36.0 g/dL RDW-CV 11.4 <15.0 % RDW-SD 41.8 35.1 - 46.3 fL Platelet Count 235 140 - 440 K/uL MPV 9.4 6.5 - 12.4 fL % Neutrophils 50.3 45.0 - 82.0 % % Lymphocytes 36.2 20.0 - 45.0 % % Monocytes 9.8 4.0 - 12.0 % % Eosinophils 2.8 0.0 - 5.0 % % Basophils 0.6 0.0 - 1.0 % % Immature Granulocytes 0.3 0.0 - 0.4 % Absolute Neutrophils 3.27 1.80 - 8.50 K/uL Absolute Lymphocytes 2.35 0.60 - 3.20 K/uL Absolute Monocytes 0.64 0.00 - 1.00 K/uL Absolute Eosinophils 0.18 0.00 - 0.40 K/uL Absolute Basophils 0.04 0.00 - 0.10 K/uL Absolute Immature Granulocytes 0.02 0.00 - 0.03 K/uL % nRBC 0 0 - 2 per 100 WBCs Absolute nRBC 0.00 0.00 - 0.01 K/uL Imaging: Recent Results (from the past 360 [...] Hidalgo MD Electronically signed: 04/09/2020 9:01 AM Assessment/Plan: This is a55 y.o.malewith a history ofhypertension, anxiety, depression who presents with left-sided weakness, mild expressive aphasia and vision deficit with recent concern fo r acute CVA withconcern for progression of event versus new ischemic event. Spoke with p suri and who reports [facility] wi th new onset left-sided weakness, numbness and a syncopal episode. Patient additionally en dorsed left-sided vision deficit. While in the emergency department had a CT head performe d with findings with bilateral white matter changes with concerns for possible demyelinating process and recommended nonemergent brain MRI. The reports that they were concerned there is a possible urinary tract infection but no additional medications were given. Meghana ent symptoms persisted and were able to have a outpatient MRI performed on 04/03 with mildly h emorrhagic right CAR ICER infarct and chronic small vessel ischemic change. As per the , fe lt weakness worsened on left side. Patient was using walker at home with poor coordination . Patient had increased bifrontal headache and prevented to the emergency department at [facility] again. Sent to [facility] for MRI evaluation. Patient and spouse were unable to get outpatient neurology appointment. While in the emergency department a CT scan was performed with right occipital and temporal lobes consistent with subacute ischemia and probable cortical mineralization. 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 Patient does have a longstanding smoking history currently smoking 4 cigarettes/day. Dr. Rios set him up with nicotine patches and warmed him not to smoke again. He has done well in all therapies and thus is to be admitted to [facility] with the goal of home w ith his , after we got approval from the [place] to admit him. Pt now has deficits in attention, executive functioning, memory, cognitive communication, c oordination, ambulation, strength, ADLs, and IADLs. The CVA with left carlton and left visual field cut diagnoses, impairments, and medical comple xity support that admission is reasonable and necessary. The patient is safe to initiate an d continue therapies but is medically complex requiring 24hr MD and nursing care. Rehabilitation - The patient will receive the following therapies: -- PT: for impairments in gait, transfers, bed mobility, ambulation, ROM, strengthening, en durance, braces, equipment -- OT: for impairments in ADLs and iADLs, ROM, strengthening, home evaluation, equipment. -- SAND WORKER: for impairments in cognition, communication -- SW: discharge planning Impression/Plan and Rehab Problem List: 1. CVA with left hemiparesis: mild. Main barrier is d/c his sensory loss and field cut 2. 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 He also tends to ignore the left side 3. Left visual field cut: moderate. Learning to compensate, but still tends to run into th ing on the left 4. PTSD: moderately severe, but under control so far with Klonopin, Xanax 5. Hypotension: BP down to 102 this morning, as well as in PT, so I cut back on his clonopi ne to .1mg bid and asked OT to check BP when they first see him 6. Tobacco Abuse: on nicotine patches and doing ok for now. # Pain: MSK pain Tylenol, PRN narco. #Bowel/Bladder: Bowel and bladder program started per IPR protocol. Adjustments and treatm ents as needed based upon results, including PVR's, IC, suppositories, enemas, and PO meds. #Diet: Diet and Supplements Diet Diet fat and cholesterol modified; Effective Now Number of Occurrences: Until Specified Order Questions: Type Diet fat and cholesterol modified #IV: accesses Active Peripheral IVs None #Code Status: Full Code POST-ADMISSION PHYSICIAN EVALUATION: Efren Pollack is a 55 y.o. male : 1965 Admit Date: 04/10/2020 Attending Provider: Wiliam Vanegas,* Admitting Diagnosis: CVA Primary Rehab Diagnosis: Stroke 01.1 Left body involvement (right brain) Medical Necessity: This admission is reasonable and necessary because of both medical and functional necessity . See H and P above dated 04/10/2020 for details, as well as Admitting Functional Status rep orted next. Major Discrepancies from pre-admission screen: Compared to the preadmission screen, the pat ient is as described. It is safe to initiate therapies. Documented History and Physical Exam: See H and P note above dated 04/10/2020 for details. Admitting Functional Status: See H and P note above dated 04/10/2020 for details. INDIVIDUALIZED OVERALL PLAN OF CARE: Individualized Plan: I have independently evaluated and examined the patient. I have formul ated the plan as outlined below. See Impression and Plan for details. This patient will req uire close daily supervision from a rehabilitation physician and will benefit from an interd isciplinary rehab team approach with the following anticipated interventions: Prior Functional Status: Mod I with adl's and mobility. Patient's Condition on Admission: See H and P above dated 04/10/2020 for details. Medical Necessity: This admission is reasonable and necessary because of both medical and functional necessity . See H and P above dated 04/10/2020 for details A rehabilitation medicine physician for daily monitoring of care, 24 hour availability for acute medical issues, medication management, and therapeutic and diagnostic assessments. 24 hour rehabilitation nursing 7 days per week for: management/teaching of medications, bow el/bladder routine, skin care. The patient requires and can tolerate 3 hours of therapy per day, will participate in thera py and has sufficient carryover to benefit from rehabilitation. The patient will benefit from comprehensive inpatient rehab therapies to address the functi onal goals above. I anticipate that this patient will make meaningful progress toward their rehab goals in a reasonable amount of time. Continued progress toward rehabilittation goal s cannot be achieved at a lower level of care. Clinical complications and medical conditions the patient is at risk for d/t comorbidities and rigors of the intensive rehab program with the specific plan to avoid them: See H and P note above dated 04/10/2020 The patient is at risk for the follow ing complications if the inpatient rehabilitation is not received: -Falls with injuries -Inability to perform activities of daily living -Depression d/t new injury -DVT and PE -Infection Comorbid Conditions: Patient Active Problem List Diagnosis Ischemic cerebrovascular accident (CVA) Hypertension Tobacco abuse Medical Prognosis: Good Anticipated Interventions: Daily intensive therapies and medical management as detailed in the H and P note above dated 04/10/2020 Expected Intensity and Frequency of Therapies: PT for 60 minutes per day 5-6 days/week OT for 60 minutes per day 5-6 days/week SAND WORKER for 60 minutes per day 4-6 days/week SW for discharge planning, community resources, and family support. This care plan will be updated as the patient condition changes and with input from the int erdisciplinary team Functional Outcomes to be Achieved During Intensive Rehabilitation Program: mod I with ambulation, ADLs and toileting, supervision-min A with iADLs, and supervision with community access. Discharge Destination: home with . ELOS: 04/21/20 Follow up: -PCP: 1-2 weeks after d/c from hospital -Home therapy vs outpatient therapy TBD Total time of approximately 48 minutes was spent with the patient and/or patient's family, and/or on the patient's floor/unit, of which more than 50% was spent counseling and/or coord ination the patient's care as outlined above. Deacon Vanegas MD 04/11/2020 4:22 PM Portions of this chart may have been created with [employer] voice recognition software. Occasi onal wrong-word or sound-alike substitutions may have occurred due to the inherent phillips itations of voice recognition software. Please read the chart carefully and recognize, using context, where these substitutions have occurred documented i n this encounter Miscellaneous Notes Plan of Care - Carolyn Gomez RN - 04/23/2020 12:15 PM PDTPt dcd home w/ . avs given and prescriptions called to [facility] pharmacy in [place]. No questions voiced. TPlan of Care - Tabatha Duque PT - 04/23/2020 11:51 AM PDT IRF Physical Therapy Plan of Care Discharge, Treatment Note Summary: Efren has been participating in physical therapy for treatment of Impaired balanc e, gait instability, impaired vision, coordination and sensation on (L) side following CVA . 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 At admission on 04/10/2020, Efren's mobility was as follows: - Bed mobility Sit to Supine, Level of [place]: stand by assist, verbal cues required Supine to Sit, Level of [place]: stand by assist, verbal cues required - Transfers Bed-Chair, Level of [place]: contact guard assist, verbal cues required Sit-Stand, Level of [place]: contact guard assist - Ambulation, Level of [place]: contact guard assist, verbal cues required, Distance ( feet): 50' x 3 - Wheelchair, , - Stairs, Level of [place]: contact guard assist, verbal cues required, Number of Stai rs: 8 At this time / discharge, Clints mobility is as follows: - Bed mobility Sit to Supine, Level of [place]: modified independent Supine to Sit, Level of [place]: modified independent - Transfers Bed-Chair, Level of [place]: modified independent Sit-Stand, Level of [place]: modified independent - Ambulation, Level of [place]: supervised, Distance (feet): 600' - Wheelchair, , - Stairs, Level of [place]: supervised, Number of Stairs: 13' + 12' Training completed: - Bed Mobility yes - Transfers yes - Ambulation yes - Wheelchair use not indicated - Stairs yes - Environment / Equipment yes - Adaptive Equipment not indicated - Safety concerns yes - Other: HEP yes Efren has shown adequate progress towards goals and is to discharge from IRF PT at this time . Recommending to have Home health PT initially to assess safety at home then progressed to out pt PT to cont.to work on balance, coordination and compensatory strategies for impaired vision on (L). Recommending supervision for general mobility d/t impaired vision and dec.s meliton to (L) side. Physical Therapy Discharge Recommendations are: Recommended discharge disposition: home with assist Post discharge physical therapy recommendation: home health Equipment Recommendations: none Planned Interventions: balance training, bed mobility training, gait training, home exerci se program, patient/family education, strengthening, transfer training, stair training, chay r coordination training, neuromuscular re-education Frequency: daily(1-2x/day, IRF) Patient Status/Goals: Reflects last filed data and may be from multiple contributors. Bed Mobility Mod I with all bed mobility Assistive Device: none Roll Left, Level of [place]: modified independent Roll Right, Level of [place]: modified independent Scoot/Bridge, Level of [place]: modified independent Supine to Sit, Level of [place]: modified independent Sit to Supine, Level of [place]: modified independent Sidelying to Sit, Level of [place]: modified independent Sit to Sidelying, Level of [place]: modified independent Impairments: impaired vision Transfers no LOB, stable Bed-Chair, Level of [place]: modified independent Chair-Bed, Level of [place]: modified independent [id number], Assistive Device: none Sit-Stand, Level of [place]: modified independent Stand-Sit, Level of [place]in[place]: modified independent [id number], Assistive Device: none Floor, Level of [place]in[place]: independent Floor Comments: caregiver training Safety Issues: other (see comments)(impaired vision on (L), visual field cut) Impairments: strength decreased, sensation decreased, impaired balance, postural control im paired, motor control impaired, impaired vision, coordination impaired Gait supervision for safety. caregiver training in proper guarding technique. return demo and verbalized understanding. did not work on distance . Pt can walk > 1,000' Level of Seminole: supervised Assistive Device: none Distance (feet): 600' Gait Pattern Analysis: (.) Gait Deviations: other (see comments)(dec.arm swing) Safety Issues: balance decreased during turns Impairments: impaired vision, coordination impaired Stairs caregiver training in proper guarding technique and cues for safe stair negotion. return d emo and verbalized understanding. Number of Stairs: 13' + 12' Handrail Location: right side (ascending) Level of Semin[place]: supervised Assistive Device: 1 rail Technique Used: step over step (ascending), step over step (descending) Safety Issues: balance decreased during turns, weight-shifting ability decreased Impairments: impaired balance, coordination impaired, impaired vision, sensory feedback imp aired, motor control impaired Therapeutic Exercise Pt and caregiver training in HEP. return demo and verbalized understanding. Seated exercises: right(resisted ankle PF using blue TB) Repetitions: 10 x 2 Standing exercises: heel raises/toe raises(Thera tube ex for UE, elb flex, SH ext, ER, elb ext, (L) LE heel raise) Repetitions: 4-5 sec. x 4 PT Goal Review Date Most Recent Value STG Review Date 04/18/20 at 04/11/2020 1108 LTG Review Date 04/25/20 at 04/11/2020 1108 Usditz-Lpj-Zbwfxe Goal Most Recent Value STG Status met at 04/14/2020 0935 STG Seminole Level supervised at 04/11/2020 1108 STG Assistive Device none at 04/11/2020 1108 LTG Status met at 04/14/2020 0935 LTG [place] Level modified independent at 04/11/2020 1108 LTG Assistive Device none at 04/11/2020 1108 Kdb-Teywv-Bxb Goal Most Recent Value STG Status met at 04/15/2020 1345 STG [place] Level supervised at 04/11/2020 1108 STG Assistive Device none at 04/11/2020 1108 LTG Status met at 04/22/2020 1344 LTG [place] Level modified independent at 04/11/2020 1108 LTG Assistive Device none at 04/11/2020 1108 Gait Goal Most Recent Value STG Status met at 04/14/2020 0935 STG [place] Level stand by assist at 04/11/2020 1108 STG Assistive Device none at 04/11/2020 1108 STG Distance (feet) 300' at 04/11/2020 1108 LTG Status met at 04/20/2020 1105 LTG [place] Level supervised at 04/11/2020 1108 LTG Assistive Device none at 04/11/2020 1108 LTG Distance (feet) > 1,000' at 04/15/2020 1345 LTG Comments for community mobility at 04/15/2020 1345 Stair Goal Most Recent Value STG Status met at 04/18/2020 0923 STG Semin[place] Level supervised at 04/11/2020 1108 STG Assistive Device 2 rails at 04/11/2020 1108 STG Number of Stairs 12 at 04/11/2020 1108 LTG Status not met at 04/23/2020 1151 LTG [place] Level modified independent at 04/11/2020 1108 LTG Assistive Device 2 rails at 04/11/2020 1108 LTG Number of Stairs 12 at 04/11/2020 1108 Additional Goal #1 PT Most Recent Value STG Status met at 04/18/2020 0923 STG Pt will demonstrate improve DGI score to 15/24 to reduce fall risk. at 04/11/2020 1108 LTG Status met at 04/23/2020 1151 LTG Improve DGI score to >19/24 to reduce fall rsik. at 04/11/2020 1108 Electronically signed by: TABATHA DUQUE, PT, 04/23/2020 12:18 PM lan of Martha - Maria Guo MSW - 04/23/2020 10:41 AM PDTDischarge Finalization Biodiesel Technology Manager met with Efren to finalize discharge that is scheduled for 1:00 pm this afterno on. Documents Provided Efren was provided with a copy of the [facility] Portable Medical Profile. DME Provided Efren is being discharged utilizing no executive sales assistant device for mobility, however [facility] with various DME for his home - bed railing, tub transfer bench, transfer pole, ra mp, and a medical alert bracelet. Ancillary Services to be Provided Home health services have been ordered. [facility] has been notified via FAX and will contact Efren within 48 hour to schedule initial evaluation assessment. Additionall y, paperwork was submitted for [place] to [place] part in [place] [facility] [place], as well as the [place] [facility] program for continued management of care. CM also FAXED last team conference note and Discharge Summary to [facility] for follow up through their facility as well. Discharge Transportation Efren's , Susie, and their neighbor will be transporting him back to his home in [place] [facility] [place], [place], and she will be his main caregiver support. .Electronically signed by: GRAYSON Keating 04/23/2020 10:47 AM lan of Care - Maria Guo MSW - 04/23/2020 9:10 AM PDTFormatting of this note might be different from the origi nal. Medical Passport NAME:Efren Bondswen : 1965 Gender: male Extended Emergency Contact Information Primary Emergency Contact: JakiSusie Relation: Spouse Preferred language: [place] Secondary Emergency Contact: [place] [address] [facility] [place] Relation: Son Advance Directives: Information Refused Attending Provider: Wiliam Vanegas,* Insurance: Payor/Plan Subscr Sex Relation Sub. Ins. ID Effective Group Num 1. [employer]* JAKIEFREN SANCHEZ 1965 Male [id number] 05/02/18 77 Suzanne Jacques 2. [employer]* JAKIEFREN SANCHEZ 1965 Male [id number] 05/[birth year]18 77 Suzanne Jacques Hospital Preference: [facility] Personal Health History No Known Allergies There is no immunization history on file for this patient. Patient Active Problem List Diagnosis Ischemic cerebrovascular accident (CVA) Hypertension Tobacco abuse Past Medical History: Diagnosis Date Hypertension No past surgical history on file. Social History Socioeconomic History Marital status: Spouse name: Not on file Number of children: Not on file Years of education: Not on file Highest education level: Not on file Tobacco Use Smoking status: Current Every Day Smoker Types: Cigarettes Smokeless tobacco: Never Used Substance and Sexual Activity Alcohol use: Not Currently Drug use: Yes Types: Marijuana Functional Status Transfers Bed to Chair not tested Chair to Bed not tested Sit to Stand supervised Gait Gait Comments: Path finding, scanning, multi-directional walking, obstacle navigation- cont inues to struggle with awareness, navigating around objects on the left side when they are c lose by and he is distracted Level of [place]: supervised, verbal cues required Assistive Device: none Distance (feet): 550 x2 Additional Documentation: deviations, impairments Gait Pattern Analysis: 2-point gait Gait Deviations: [id number] clearance decreased, stride width increased Safety Issues: balance decreased during turns Impairments: sensation decreased, impaired balance, impaired vision, motor control impaired , postural control impaired, coordination impaired Stairs Stairs, Comment: good pacing and self-monitoring throughout for safety- decreased stability with turning at top of landing Number of Stairs: 24 Handrail Location: right side (ascending) Level of [place]in[place]: supervised Assistive Device: 1 rail Technique Used: step over step (ascending), step over step (descending) Safety Issues: balance decreased during turns, weight-shifting ability decreased Impairments: impaired balance, coordination impaired, impaired vision, sensory feedback imp aired, motor control impaired Dressing Upper Body UB Dressing Assess/Train, Comment: Pt retrieved clean clothes from closet, ambulated to donn wer room, donned T shirt when done w/shower while sitting on shower chair. Supervision for g eneral safety. UB Dressing, Level of [place]: supervised, verbal cues required Assistive Device: none UB Dressing Assess/Train, Position: sitting UB Dressing Impairments: sensation decreased, impaired vision, coordination impaired, impai red cognition, motor control impaired, impaired balance Lower Body LB Dressing Assess/Train, Comment: Pt doffed shoes and SINGH hoes prior to shower. After bath ing he was able to don shorts, socks, and shoes. He was reminded to thread L LE first to hel p technique. He was able to tie laces w/no assist. LB Dressing, Level of [place]: supervised, verbal cues required Assistive Device: none LB Dressing Assess/Train, Position: sitting, standing LB Dressing Impairments: impaired vision, decreased flexibility, coordination impaired, mot or control impaired, sensation decreased, impaired functional endurance/activity tolerance, impaired balance, ROM decreased Bathing Bathing Assess/Train, Comment: Showered using shower chair, standing w/support of grab bar, cues for safety precautions and positioning. Pt was able to wash body without assit, SBA pr ovided for general safety during standing portions when doing pericare. Bathing, Level of [place]: stand by assist, verbal cues required, set up required Assistive Device: grab bars, hand-held shower head, shower chair with back Bathing Assess/Train, Position: sitting, standing Bathing Impairments: decreased flexibility, sensation decreased, strength decreased, impair ed balance, impaired vision, impaired functional endurance/activity tolerance, motor control impaired Diet Diet/Nutrition Prescription: fat and cholesterol modified Swallowing Corrective Lens: Hearing Aid: lan of Care - Namita Huerta COTA - 04/23/2020 8:00 AM PDT IRF Occupational Therapy Plan of Care Treatment Note Summary: Efren has been participating in occupational therapy for treatment of decreased safety/capacity for indep with ADLs, IADLs, functional mobility/tfs following admission afte r Ischemic cerebrovascular accident (CVA) . Efren made good process towards his alf goals meeting some and doing well enough to DC home with family assist and ongoing therapies. At admission on 04/10/2020, Efren's self care was as follows: - Toilet, Level of [place]: contact guard assist, verbal cues required - - Tub, Level of [place]: contact guard assist, set up required, verbal cues required - Bathing, Level of [place]: set up required, verbal cues required, contact guard assi st, stand by assist - UB Dressing, Level of [place]: stand by assist, set up required, verbal cues require d - LB Dressing, Level of [place]: moderate assist (50% patient effort), set up required , verbal cues required - Grooming, Level of [place]: stand by assist - Toileting, Level of [place]: minimal assist (75% patient effort), set up required, v erbal cues required - Cognition Mod/Max assist At this time / discharge, Clints self care is as follows: - Toilet, Level of [place]: supervised - - Tub, Level of [place]: not tested - Bathing, Level of [place]: stand by assist, verbal cues required, set up required - UB Dressing, Level of [place]: modified independent, supervised(Mod I for dressing, supervision for clothing retrieval) - LB Dressing, Level of [place]: modified independent, supervised(Mod I for LB dressin g, Supervision for clothing retrieval) - Grooming, Level of [place]: modified independent - Toileting, Level of [place]in[place]: modified independent - Cognition Occasional VC's and supervision Training completed: - Self-Care Transfers yes - Activities of daily living yes - Cognition / communication yes - Community Integration yes - Environment / Equipment yes - Safety concerns yes - Recreation and Leisure not indicated - Time Management yes - Other:Vision yes Efren has shown adequate progress towards goals and is to discharge OT at this time. Staff to continue to encourage and promote independence with ADLs and functional mobility. Occupational Therapy Discharge Recommendations are: Recommended discharge disposition: home with assist Post discharge occupational therapy recommendation: home health, outpatient therapy Equipment Recommendations: sisal operator, grab bars, hand held shower head Patient Status/Goals: Reflects last filed data and may be from multiple contributors. ADLs Pt up in chair agreeing to do self care this AM. Showered using shower chair, standing w/support of grab bar, cues for safety precautions an d positioning. Pt was able to wash body without assit, SBA provided for general safety durin g standing portions when doing pericare. Bathing, Level of [place]: stand by assist, verbal cues required, set up required Assistive Device: grab bars, hand-held shower head, shower chair with back Bathing Assess/Train, Position: sitting, standing Bathing Impairments: decreased flexibility, sensation decreased, strength decreased, impair ed balance, impaired vision, impaired functional endurance/activity tolerance, motor control impaired Pt retrieved clean clothes from closet and doffed shirt to don clean shirt while standing. Supervision for general safety w/clothing retrieval only. UB Dressing, Level of [place]: modified independent, supervised(Mod I for dressing, petit pervision for clothing retrieval) Assistive Device: none UB Dressing Assess/Train, Position: standing UB Dressing Impairments: sensation decreased, impaired vision, coordination impaired, impai red cognition, motor control impaired, impaired balance Pt donned clean pants and was able to put on shoes including tying them with no assist but needed extra time. Supervision for general safety with clothing retrieval. LB Dressing, Level of [place]in[place]: modified independent, supervised(Mod I for LB dressing, Supervision for clothing retrieval) Assistive Device: none LB Dressing Assess/Train, Position: sitting, standing LB Dressing Impairments: impaired vision, decreased flexibility, coordination impaired, mot or control impaired, sensation decreased, impaired functional endurance/activity tolerance, impaired balance, ROM decreased Standing void, no assist required. Supervision for mobility to/from bathroom for general sa fety. Toileting, Level of [place]in[place]: modified independent Assistive Device: grab bar Toileting Assess/Train, Position: standing Toileting Impairments: impaired vision, coordination impaired, impaired functional enduranc e/activity tolerance, sensation decreased, impaired balance Stood at sink for oral hygiene Grooming, Level of [place]in[place]: modified independent Assistive Device: none Grooming Assess/Train, Position: standing Grooming Impairments: coordination impaired, impaired vision, sensation decreased, impaired balance IADLs Pt gathered clothes in his room to pack up to get ready to go home. He was able to transfer clothes into bags but needed some directing for organization purposes. He ambulated into ba throom to gather toiletries then transferred them to bag w/no assist. While [facility]ing [facility] he seemed aware of his surroundings and moved cautiously. Supervision for general sa fety. Transfers sit to stand, stand to sit w/out LOB. Pt continues to demonstrate SBA needs 2/2 inattention of L side and for general safety. Sit-Stand, Level of [place]in[place]: supervised Stand-Sit, Level of [place]in[place]: supervised Odh-Srusc-Won, Assistive Device: none Toilet, Level of [place]: supervised Toilet, Assistive Device: none Tub, Level of [place]in[place]: Supervised Tub, Assistive Device: grab bars, shower chair Safety Issues: balance decreased during turns, sequencing ability decreased Impairments: strength decreased, sensation decreased, impaired balance, postural control im paired, motor control impaired, impaired vision, coordination impaired OT Goal Review Date Most Recent Value STG Review Date 04/18/20 at 04/11/2020 0922 LTG Review Date 04/25/20 at 04/11/2020 0922 Grooming Goal Most Recent Value STG Status met at 04/13/2020 1210 STG Semin[place] Level supervised at 04/11/2020 0922 STG Position standing at 04/11/2020 0922 STG Adaptive Equipment none at 04/11/2020 0922 LTG Status met at 04/23/2020 0715 LTG [place] Level modified independent at 04/11/2020 0922 LTG Position standing at 04/11/2020 0922 LTG Adaptive Equipment none at 04/11/2020 0922 Bathing Goal Most Recent Value STG Status met [Score taken 04/16 PM tx] at 04/18/2020 1105 STG [place] Level supervised, set up required, verbal cues required at 04/11/2020 092 2 STG Adaptive Equpiment grab bars, shower head, detachable, sponge, long handled, shower ch air, shower chair with back at 04/11/2020 0922 STG Position sitting, standing at 04/11/2020 0922 LTG Status not met [adequate for DC w/family assist] at 04/23/2020 0715 LTG [place]in[place] Level modified independent at 04/11/2020 0922 LTG Adaptive Equpiment grab bars, shower head, detachable, sponge, long handled, shower ch air, shower chair with back at 04/11/2020 0922 LTG Position sitting, standing at 04/11/2020 0922 UB Dressing Goal Most Recent Value STG Status met at 04/12/2020 1158 STG [place] Level supervised, set up required, verbal cues required at 04/11/2020 092 2 STG Adaptive Equipment none at 04/11/2020 0922 LTG Status met at 04/23/2020 0715 LTG [place] Level modified independent at 04/11/2020 0922 LTG Adaptive Equipment none at 04/11/2020 0922 LTG Comments including clothing retrieval at 04/12/2020 1158 LB Dressing Goal Most Recent Value STG Status met [Except for TEDs, Score taken 04/16 PM tx] at 04/18/2020 1105 STG [place] Level supervised, set up required, verbal cues required at 04/11/2020 092 2 STG Adaptive Equipment sock-aid, shoe horn, long handled, sisal operator at 04/11/2020 0922 LTG Status met at 04/23/2020 0715 LTG [place] Level modified independent at 04/11/2020 0922 LTG Adaptive Equipment shoe horn, long handled, sock-aid, sisal operator at 04/11/2020 0922 LTG Comments including clothing retrieval at 04/12/2020 1158 Toileting Goal Most Recent Value STG Status met at 04/13/2020 1210 STG [place] Level supervised, set up required, verbal cues required at 04/11/2020 092 2 STG Assistive Device grab bar at 04/11/2020 0922 LTG Status met at 04/23/2020 0715 LTG [place] Level modified independent at 04/11/2020 0922 LTG Assistive Device grab bar at 04/11/2020 0922 Toilet Transfer Goal Most Recent Value STG Status met at 04/13/2020 1210 STG [place] Level supervised, set up required, verbal cues required at 04/11/2020 092 2 STG Assistive Device grab bars at 04/11/2020 0922 LTG Status not met [adequate for DC w/family assist] at 04/23/2020 0715 LTG [place] Level modified independent at 04/11/2020 0922 LTG Assistive Device grab bars at 04/11/2020 0922 Tub/Shower Transfer Goal Most Recent Value Tub/Shower Type tub/shower combo at 04/11/2020 0922 STG Status met at 04/18/2020 1105 STG [place] Level supervised, set up required, verbal cues required at 04/11/2020 092 2 STG Assistive Device grab bars, shower chair at 04/11/2020 0922 LTG Status not met [adequate for DC w/family assist] at 04/23/2020 0715 LTG [place] Level modified independent at 04/11/2020 0922 LTG Assistive Device grab bars, shower chair at 04/11/2020 0922 IADL Goal Most Recent Value STG Status not met at 04/18/2020 1105 STG Pt will be supervision vcs setup prn for meal preparation task at 04/11/2020 0922 LTG Status not met [adequate for DC w/family assist] at 04/23/2020 0715 LTG Pt will be Mod I for meal preparation task at 04/11/2020 0922 Vision Goal Most Recent Value STG Status met at 04/18/2020 1105 STG Pt will participate in eye exercises to increase ocular alignment, initiate saccadic e ye motion, increase VOR with eye focusing, and decrease diplopia as well as increase depth p erception and spatial relations to improve visual functions for ADLs, functional mobility/tf s. at 04/11/2020 0922 LTG Status not met [adequate for DC w/family assist] at 04/23/2020 0715 LTG Pt will report improvements to visual deficits impact on ADLs and utilize visual compe nsatory strategies indep at 04/11/2020 0922 Additional Goals #1 OT Most Recent Value STG Status met [Score taken 520 AM tx] at 04/18/2020 1105 STG Pt will participate in tasks to increase/improve LUE sensation and coordination. at 0 04/11/2020 0922 LTG Status not met [L hand FMC continues to improve, 9 hole peg test not completed prior t o DC] at 04/23/2020 0715 LTG Pt L hand fine motor coordination will be improved as evidenced by L hand performance on the 9 hole peg test in 90 seconds or less. at 04/12/2020 1158 Electronically signed by: DAWNA Solares, 04/23/2020 3:02 PM Associated attestation - Irma Muse OT - 04/23/2020 6:54 PM PDTDischarge Note Spoke with DAWNA Grover regarding patient status and goals, agree with plan of care . Patient is adequate for discharge from Occupational Therapy services at this time. Patie nt to continue to mobilize with nursing until discharge. At evaluation, Efren's self care was as follows: - Toilet, Level of [place]: contact guard assist, verbal cues required - - Tub, Level of [place]: contact guard assist, set up required, verbal cues required - Bathing, Level of [place]: set up required, verbal cues required, contact guard assi st, stand by assist - UB Dressing, Level of [place]: stand by assist, set up required, verbal cues require d - LB Dressing, Level of [place]: moderate assist (50% patient effort), set up required , verbal cues required - Grooming, Level of [place]: stand by assist - Toileting, Level of [place]: minimal assist (75% patient effort), set up required, v erbal cues required At this time / discharge, Efren's self care is as follows: - Toilet, Level of [place]in[place]: supervised - - Tub, Level of [place]: not tested - Bathing, Level of [place]: stand by assist, verbal cues required, set up required - UB Dressing, Level of [place]: modified independent, supervised(Mod I for dressing, supervision for clothing retrieval) - LB Dressing, Level of [place]in[place]: modified independent, supervised(Mod I for LB dressin g, Supervision for clothing retrieval) - Grooming, Level of [place]in[place]: modified independent - Toileting, Level of Semin[place]: modified independent Electronically signed by: Irma Muse OT, 04/23/2020 6:49 PM Plan of Care - Yaa Shaw, RN - 04/23/2020 4:07 AM PDTGreg is alert and oriented x 3, disoriented to time. In a pleasant mood this evening, no c/o anixiety. Calls appropriatel y for assistance. L sided neglect still evident at times with L field of vision loss, stable transfers with supervision. Ataxia noted LUE with stroke assessment. PRN Tylenol for heada ches. Will continue to monitor for any changes. Slept well throughout night, looking forward to discharging home with to [facility] on 04/23/2020. Remains free from falls, hourly sa fety rounds completed. Problem: Adult Inpatient Plan of [...] Fall and Fall-Related Injury Outcome: Ongoing, progressing Problem: Adjustment to Illness (Stroke, Ischemic/Transient Ischemic Attack) Goal: Optimal Coping Outcome: Ongoing, progressing Problem: Bowel Elimination Impaired (Stroke, Ischemic/Transient Ischemic Attack) Goal: Effective Bowel Elimination Outcome: Ongoing, progressing Problem: Cerebral Tissue Perfusion Risk (Stroke, Ischemic/Transient Ischemic Attack) Goal: Optimal Cerebral Tissue Perfusion Outcome: Ongoing, progressing Problem: Eating/Swallowing Impairment (Stroke, Ischemic/Transient Ischemic Attack) Goal: Oral Intake without Aspiration Outcome: Ongoing, progressing Problem: Functional Ability Impaired (Stroke, Ischemic/Transient Ischemic Attack) Goal: Optimal Functional Ability Outcome: Ongoing, progressing Problem: Pain (Stroke, Ischemic/Transient Ischemic Attack) Goal: Acceptable Pain Control Outcome: Ongoing, progressing Problem: Urinary Elimination Impaired (Stroke, Ischemic/Transient Ischemic Attack) Goal: Effective Urinary Elimination Outcome: Ongoing, progressing Problem: Discharge Planning Goal: Patient's discharge needs will be identified in a timely manner Outcome: Ongoing, progressing Goal: Patient will be discharged in a safe manner Outcome: Ongoing, progressing Problem: Self-Care Deficit Goal: Improved Ability to Complete Activities of Daily Living Outcome: Ongoing, progressing Problem: Mobility Impairment Goal: Optimal Mobility Outcome: Ongoing, progressing Problem: Cognitive Impairment Goal: Optimal Functional [place] Outcome: Ongoing, progressing Problem: Skin Injury Risk Increased Goal: Skin Health and Integrity Outcome: Ongoing, progressing Problem: Spiritual Distress Risk or Actual Goal: Spiritual Wellbeing Outcome: Ongoing, progressing lan of Care - Namita Gillette COTA - 04/22/2020 2:48 PM PDTFormatting of this note might be different fr om the original. IRF Occupational Therapy Plan of Care Treatment Note Summary: Efren has been participating in occupational therapy for treatment of decreased sa fety/capacity for indep with ADLs, IADLs, functional mobility/tfs following admission after Ischemic cerebrovascular accident (CVA) . Emphasis of session included doing laundry task a nd working on FMC with card game focusing on L side neglect. Patient demonstrates progress towards functional goals as evidenced by his ongoing participation working towards his OT go als. Patient was agreeable to therapy. Patient participated without adverse reaction. It is enco uraged that the patient be up in chair for all meals. Recommended toileting with nursing: Day Night toilet toilet No Assistive Device No Assistive Device supervision / set-up stand by assistance and verbal cues stand by assistance contact guard assistance and verbal cues Remaining barriers to discharge and functional limitations include decreased insight into s afety and deficits, decreased functional activity tolerance, decreased functional transfers, decreased ability to perform ADLs, decreased ability to perform IADLs, decreased ability to perform medication management, and medical status. Efren will benefit from continued therapeutic intervention to address ongoing impairments an d increase safety and independence with activities necessary for safe discharge. Refer jean-pierre valle for specific details regarding functional levels. Occupational Therapy Discharge Recommendations are: Recommended discharge disposition: home with assist Post discharge occupational therapy recommendation: home health, other (see comment), outp atient therapy Equipment Recommendations: sisal operator Planned Interventions:ADL retraining, balance training, fine motor coordination training, f unctional endurance training, motor coordination training, neuromuscular re-education, patie nt/family education, transfer training, visual/perceptual retraining, IADL retraining, bed m obility training, ROM (Range of Motion), strengthening, other (see comments)(sensory) Recommended Frequency: (rehab schedule) Patient Status/Goals: Reflects last filed data and may be from multiple contributors. ADLs Pt up in chair and requested to void before activity. Standing void, no physical assist required. Supervision for mobility to/from bathroom and g eneral safety. Toileting, Level of [place]: supervised Assistive Device: none Toileting Assess/Train, Position: standing Toileting Impairments: impaired vision, coordination impaired, impaired functional enduranc e/activity tolerance, sensation decreased, impaired balance IADLs Pt gathered dirty clothes to put into bag. He missed the bag w/clothing falling to floor wi thout noticing. Cues were needed to retireve fallen clothing into bag. He ambulated to laund ry room carrying bag w/VC's for direction. He set washer up and put a load of laundry in w/S BA. Did better pouring soap into cup without spill. Was reminded to square L side up to wash er. On the way back to room he was able to make correct turns into hallway to his room with no asisst. 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 He used BUE w/some reminders to use L UE. He was able to hold cards in one hand and reach wi th the other. Needed occasional reminders for it being his turn. He was able to group cards with the same suit, 3 of a kind, and other runs when playing cards. [facility] [place] [facility] was addressed as wel gely as working on L side neglect. Transfers Supervision for all transfers, he demos good self instruction for lining self up before sit ting. Sit-Stand, Level of [place]: supervised Stand-Sit, Level of [place]: supervised Rid-Qlanq-Adh, Assistive Device: none Toilet, Level of [place]: supervised Toilet, Assistive Device: none Safety Issues: balance decreased during turns, sequencing ability decreased Impairments: strength decreased, sensation decreased, impaired balance, postural control im paired, motor control impaired, impaired vision, coordination impaired OT Goal Review Date Most Recent Value STG Review Date 04/18/20 at 04/11/2020 0922 LTG Review Date 04/25/20 at 04/11/2020 0922 Grooming Goal Most Recent Value STG Status met at 04/13/2020 1210 STG [place] Level supervised at 04/11/2020 0922 STG Position standing at 04/11/2020 0922 STG Adaptive Equipment none at 04/11/2020 09 LTG Status progressing at 04/22/2020 1207 LTG [place] Level modified independent at 04/11/2020 09 LTG Position standing at 04/11/2020 0922 LTG Adaptive Equipment none at 04/11/2020 0922 Bathing Goal Most Recent Value STG Status met [Score taken 04/16 PM tx] at 04/18/2020 1105 STG [place] Level supervised, set up required, verbal cues required at 04/11/2020 092 2 STG Adaptive Equpiment grab bars, shower head, detachable, sponge, long handled, shower ch air, shower chair with back at 04/11/2020 09 STG Position sitting, standing at 04/11/2020 09 LTG Status progressing at 04/22/2020 1207 LTG [place] Level modified independent at 04/11/2020 0922 LTG Adaptive Equpiment grab bars, shower head, detachable, sponge, long handled, shower ch air, shower chair with back at 04/11/2020 0922 LTG Position sitting, standing at 04/11/2020 0922 UB Dressing Goal Most Recent Value STG Status met at 04/12/2020 1158 STG [place] Level supervised, set up required, verbal cues required at 04/11/2020 092 2 STG Adaptive Equipment none at 04/11/2020 0922 LTG Status progressing at 04/22/2020 1207 LTG [place] Level modified independent at 04/11/2020 0922 LTG Adaptive Equipment none at 04/11/2020 0922 LTG Comments including clothing retrieval at 04/12/2020 1158 LB Dressing Goal Most Recent Value STG Status met [Except for TEDs, Score taken 04/16 PM tx] at 04/18/2020 1105 STG [place] Level supervised, set up required, verbal cues required at 04/11/2020 092 2 STG Adaptive Equipment sock-aid, shoe horn, long handled, sisal operator at 04/11/2020 0922 LTG Status progressing at 04/22/2020 1207 LTG [place] Level modified independent at 04/11/2020 0922 LTG Adaptive Equipment shoe horn, long handled, sock-aid, sisal operator at 04/11/2020 0922 LTG Comments including clothing retrieval at 04/12/2020 1158 Toileting Goal Most Recent Value STG Status met at 04/13/2020 1210 STG [place] Level supervised, set up required, verbal cues required at 04/11/2020 092 2 STG Assistive Device grab bar at 04/11/2020 0922 LTG Status progressing at 04/21/2020 1137 LTG [place] Level modified independent at 04/11/2020 0922 LTG Assistive Device grab bar at 04/11/2020 0922 Toilet Transfer Goal Most Recent Value STG Status met at 04/13/2020 1210 STG [place] Level supervised, set up required, verbal cues required at 04/11/2020 092 2 STG Assistive Device grab bars at 04/11/2020 0922 LTG Status progressing at 04/21/2020 1137 LTG [place] Level modified independent at 04/11/2020 0922 LTG Assistive Device grab bars at 04/11/2020 0922 Tub/Shower Transfer Goal Most Recent Value Tub/Shower Type tub/shower combo at 04/11/2020 0922 STG Status met at 04/18/2020 1105 STG [place] Level supervised, set up required, verbal cues required at 04/11/2020 092 2 STG Assistive Device grab bars, shower chair at 04/11/2020 0922 LTG Status progressing at 04/22/2020 1207 LTG [place] Level modified independent at 04/11/2020 0922 LTG Assistive Device grab bars, shower chair at 04/11/2020 0922 IADL Goal Most Recent Value STG Status not met at 04/18/2020 1105 STG Pt will be supervision vcs setup prn for meal preparation task at 04/11/2020 0922 LTG Status progressing at 04/17/2020 1207 LTG Pt will be Mod I for meal preparation task at 04/11/2020 0922 Vision Goal Most Recent Value STG Status met at 04/18/2020 1105 STG Pt will participate in eye exercises to increase ocular alignment, initiate saccadic e ye motion, increase VOR with eye focusing, and decrease diplopia as well as increase depth p erception and spatial relations to improve visual functions for ADLs, functional mobility/tf s. at 04/11/2020 0922 LTG Status progressing at 04/22/2020 1207 LTG Pt will report improvements to visual deficits impact on ADLs and utilize visual compe nsatory strategies indep at 04/11/2020 09 Additional Goals #1 OT Most Recent Value STG Status met [Score taken 5/20 AM tx] at 04/18/2020 1105 STG Pt will participate in tasks to increase/improve LUE sensation and coordination. at 0 04/11/2020 0922 LTG Status progressing at 04/21/2020 1137 LTG Pt L hand fine motor coordination will be improved as evidenced by L hand performance on the 9 hole peg test in 90 seconds or less. at 04/12/2020 1158 Electronically signed by: DAWNA Solares, 04/22/2020 3:18 PM lan of Care - Carolyn Gomez RN - 03/29 1:50 PM PDT Problem: Adult Inpatient Plan of Care Goal: [...] Fall and Fall-Related Injury Outcome: Ongoing, progressing Problem: Adjustment to Illness (Stroke, Ischemic/Transient Ischemic Attack) Goal: Optimal Coping Outcome: Ongoing, progressing Problem: Bowel Elimination Impaired (Stroke, Ischemic/Transient Ischemic Attack) Goal: Effective Bowel Elimination Outcome: Ongoing, progressing Problem: Cerebral Tissue Perfusion Risk (Stroke, Ischemic/Transient Ischemic Attack) Goal: Optimal Cerebral Tissue Perfusion Outcome: Ongoing, progressing Problem: Eating/Swallowing Impairment (Stroke, Ischemic/Transient Ischemic Attack) Goal: Oral Intake without Aspiration Outcome: Ongoing, progressing Problem: Functional Ability Impaired (Stroke, Ischemic/Transient Ischemic Attack) Goal: Optimal Functional Ability Outcome: Ongoing, progressing Problem: Pain (Stroke, Ischemic/Transient Ischemic Attack) Goal: Acceptable Pain Control Outcome: Ongoing, progressing Problem: Urinary Elimination Impaired (Stroke, Ischemic/Transient Ischemic Attack) Goal: Effective Urinary Elimination Outcome: Ongoing, progressing Problem: Discharge Planning Goal: Patient's discharge needs will be identified in a timely manner Outcome: Ongoing, progressing Goal: Patient will be discharged in a safe manner Outcome: Ongoing, progressing Problem: Self-Care Deficit Goal: Improved Ability to Complete Activities of Daily Living Outcome: Ongoing, progressing Problem: Mobility Impairment Goal: Optimal Mobility Outcome: Ongoing, progressing Problem: Cognitive Impairment Goal: Optimal Functional [place] Outcome: Ongoing, progressing Problem: Skin Injury Risk Increased Goal: Skin Health and Integrity Outcome: Ongoing, progressing Problem: Spiritual Distress Risk or Actual Goal: Spiritual Wellbeing Outcome: Ongoing, progressing Pt alert and oriented. Flat affect. Lt facial droop. Calls appropriately for help. Supervi xochilt w/ transfers. Tolerating fat/chol modified diet. LBM 04/20. Hrr sandy. Voids without dif ficulty. Redness to rt buttocks. Lt eye partial blindness. LUE ataxia. MS 04/01. Type Disk Quality Control Supervisor and hector si/planter strong. la n of Care - Anay Taylor PTA Student - 04/22/2020 1:44 PM PDTFormatting of this note mi ght be different from the original. IRF Physical Therapy Plan of Care Treatment Note Summary: Efren has been participating in physical therapy for treatment of Impaired balanc e, gait instability, impaired vision, coordination and sensation on (L) side following CVA . 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 Emphasis of session included functional mobility and training in preparation for potential d/c tomorrow- path finding, scanning for obstacles on L side, uneven surface walking, curb/s tep navigation multi-directionally. Patient demonstrates progress towards functional goals as evidenced by improved self-monito ring and pacing throughout session, as well as improved CARE and DGI scores compared to prev ious testing. Patient was agreeable to therapy. Patient participated without adverse reaction. Patient is encouraged to ambulate into hallway with nursing staff. It is encouraged that the patient b e up in chair for all meals. Recommended mobility with nursing: Day Night into the bathroom and into the hallway into the bathroom and into the hallway No Assistive Device No Assistive Device supervision / set-up supervision / set-up Remaining barriers to discharge and functional limitations include decreased insight into s afety and deficits and stairs at home. Efren will benefit from continued therapeutic intervention to address ongoing impairments an d increase safety and independence with activities necessary for safe discharge. Refer jean-pierre valle for specific details regarding functional levels. Physical Therapy Discharge Recommendations are: Recommended discharge disposition: home with assist Post discharge physical therapy recommendation: outpatient therapy Equipment Recommendations: none Planned Interventions: balance training, bed mobility training, gait training, home exerci se program, patient/family education, strengthening, transfer training, stair training, chay r coordination training, neuromuscular re-education Frequency: daily(1-2x/day, IRF) Patient Status/Goals: Reflects last filed data and may be from multiple contributors. Bed Mobility Mod I with all bed mobility Assistive Device: none Roll Left, Level of [place]: modified independent Roll Right, Level of [place]: modified independent Scoot/Bridge, Level of [place]: modified independent Supine to Sit, Level of [place]: modified independent Sit to Supine, Level of [place]: modified independent Sidelying to Sit, Level of [place]: modified independent Sit to Sidelying, Level of [place]: modified independent Impairments: impaired vision Transfers Supervision for all transfers- good self-instruction by patient for lining self up to surfa ce before sitting Bed-Chair, Level of [place]: supervised [id number], Assistive Device: none Sit-Stand, Level of [place]: modified independent Stand-Sit, Level of [place]: supervised [id number], Assistive Device: none Tub, Level of [place]: not tested Safety Issues: balance decreased during turns, sequencing ability decreased Impairments: strength decreased, sensation decreased, impaired balance, postural control im paired, motor control impaired, impaired vision, coordination impaired Gait Path finding, scanning, multi-directional walking, obstacle navigation- continues to strugg le with awareness, navigating around objects on the left side when they are close by and he is distracted Level of [place]: supervised, verbal cues required Assistive Device: none Distance (feet): 550 x2 Gait Pattern Analysis: 2-point gait Gait Deviations: [id number] clearance decreased, stride width increased Safety Issues: balance decreased during turns Impairments: sensation decreased, impaired balance, impaired vision, motor control impaired , postural control impaired, coordination impaired Stairs good pacing and self-monitoring throughout for safety- decreased stability with turning at top of landing Number of Stairs: 24 Handrail Location: right side (ascending) Level of [place]: supervised Assistive Device: 1 rail Technique Used: step over step (ascending), step over step (descending) Safety Issues: balance decreased during turns, weight-shifting ability decreased Impairments: impaired balance, coordination impaired, impaired vision, sensory feedback imp aired, motor control impaired Balance Good for activities presented- minor LOB's when distracted or when he gets moving too quick ly, but able to self-correct Sitting Balance: Static: normal balance Sitting Balance: Dynamic: normal balance Standing Balance: Static: good balance Standing Balance: Dynamic: good balance Functional Endurance Good for activities presented ROM L LE ROM: WFL R LE ROM: WFL Strength L LE Strength: grossly graded 4+/5 R LE Strength: grossly 5/5 PT Goal Review Date Most Recent Value STG Review Date 04/18/20 at 04/11/2020 1108 LTG Review Date 04/25/20 at 04/11/2020 1108 Lenewy-Pmd-Aoxzye Goal Most Recent Value STG Status met at 04/14/2020 0935 STG [place] Level supervised at 04/11/2020 1108 STG Assistive Device none at 04/11/2020 1108 LTG Status met at 04/14/2020 0935 LTG [place] Level modified independent at 04/11/2020 1108 LTG Assistive Device none at 04/11/2020 1108 Xbe-Bisan-Hut Goal Most Recent Value STG Status met at 04/15/2020 1345 STG [place] Level supervised at 04/11/2020 1108 STG Assistive Device none at 04/11/2020 1108 LTG Status met at 04/22/2020 1344 LTG [place] Level modified independent at 04/11/2020 1108 LTG Assistive Device none at 04/11/2020 1108 Gait Goal Most Recent Value STG Status met at 04/14/2020 0935 STG [place] Level stand by assist at 04/11/2020 1108 STG Assistive Device none at 04/11/2020 1108 STG Distance (feet) 300' at 04/11/2020 1108 LTG Status met at 04/20/2020 1105 LTG [place] Level supervised at 04/11/2020 1108 LTG Assistive Device none at 04/11/2020 1108 LTG Distance (feet) > 1,000' at 04/15/2020 1345 LTG Comments for community mobility at 04/15/2020 1345 Stair Goal Most Recent Value STG Status met at 04/18/2020 0923 STG [place] Level supervised at 04/11/2020 1108 STG Assistive Device 2 rails at 04/11/2020 1108 STG Number of Stairs 12 at 04/11/2020 1108 LTG Status progressing at 04/22/2020 1344 LTG [place] Level modified independent at 04/11/2020 1108 LTG Assistive Device 2 rails at 04/11/2020 1108 LTG Number of Stairs 12 at 04/11/2020 1108 Additional Goal #1 PT Most Recent Value STG Status met at 04/18/2020 0923 STG Pt will demonstrate improve DGI score to 15/24 to reduce fall risk. at 04/11/2020 1108 LTG Status progressing at 04/19/2020 1355 LTG Improve DGI score to >19/24 to reduce fall rsik. at 04/11/2020 1108 Electronically signed by: Anay Taylor PTA Student, 04/22/2020 2:46 PMElectronically sign ed by Darby Rutherford PTA at 04/22/2020 2:56 PM PDT Associated attestation - Darby Rutherford PTA - 04/22/2020 2:56 PM PDTPortions of the hayley luation data modeler were performed and entered by Anay Taylor, Physical Therapist Studio Owner Student, under the direct supervision of Clinical Instructing [facility] Physical Therapist Marlee lundberg. I have reviewed this documentation and agree w/ the treatment provided. Adequate supervision was given and correct CPT codes have been entered. Electronically signed by: Darby Rutherford PTA 04/22/2020 2:56 PM Plan of Care - Sonny Guo MSW - 04/22/2020 12:56 PM PDTTeam Conference Patient and Family Follow Up Biodiesel Technology Manager met with Efren to review the plan of care established at today's team conferenc e. 1. Efren's anticipated [facility] date remains [facility] 2. The only barrier to discharge remains to be his transportation home, as the [place] has suspe nded transportation services due to COVID. JOLENE [facility] not [facility] about whether [facility] qualifies for their [facility] services and after speaking with Negra from transportation s ervices, it is assumed that he most likely will not. JOLENE reached out to Efren's , eBrenice thorpe, as Efren had suggested that she might have access to the neighbor's car. CM was unable t o reach her, but was able to leave a detailed message requesting a call back to discuss if s he is able to locate a vehicle. CM will wait to hear back from Efren's if she is able to provide transportation. .Electronically signed by: GRAYSON Keating 04/22/2020 1:05 PM 2. JOLENE was able to speak with Kalyan from [facility] @ [phone] X [phone] and he verified that [facility] does NOT qualify for beneficiary travel services. .Electronically signed by: GRAYSON Keating 04/22/2020 1:14 PM 2. JOLENE heard back from Efren's , Susie, who stated that she is able to pick him up fr om the hospital tomorrow and is scheduled to attend caregiver training before discharge @ 11 :00 am. [employer] Special Education Teacher was made aware of the training and has scheduled accordingly. .Electronically signed by: GRAYSON Keating 04/22/2020 2:03 PM lan of Care - Namita Huerta COTA - 04/22/2020 12:07 PM PDT IRF Occupational Therapy Plan of Care Treatment Note Summary: Efren has been participating in occupational therapy for treatment of decreased saf ety/capacity for indep with ADLs, IADLs, functional mobility/tfs following admission after I schemic cerebrovascular accident (CVA) . Emphasis of session included UB/LB dressing, bathi ng, and neuro reeducation activity. Patient demonstrates progress towards functional goals as evidenced by his ongoing participation working towards his OT goals. RN cleared patient for participation in therapy. Patient was agreeable to therapy. Patient participated without adverse reaction. Patient is [facility] It is encouraged that the patient be up in chair for all meals. Recommended toileting with nursing: Day Night toilet toilet No Assistive Device No Assistive Device stand by assistance and verbal cues stand by assistance contact guard assistance and verba l cues Remaining barriers to discharge and functional limitations include decreased insight into s afety and deficits, decreased functional activity tolerance, decreased functional transfers, decreased ability to perform ADLs, decreased ability to perform IADLs, and medical status. Efren will benefit from continued therapeutic intervention to address ongoing impairments an d increase safety and independence with activities necessary for safe discharge. Refer jean-pierre valle for specific details regarding functional levels. Occupational Therapy Discharge Recommendations are: Recommended discharge disposition: home with assist Post discharge occupational therapy recommendation: home health, other (see comment), outp atient therapy Equipment Recommendations: sisal operator BP sittin/68 Planned Interventions:ADL retraining, balance training, fine motor coordination training, f unctional endurance training, motor coordination training, neuromuscular re-education, patie nt/family education, transfer training, visual/perceptual retraining, IADL retraining, bed m obility training, ROM (Range of Motion), strengthening, other (see comments)(sensory) Recommended Frequency: (rehab schedule) Patient Status/Goals: Reflects last filed data and may be from multiple contributors. ADLs Pt up in chair requesting to shower. Showered using shower chair, standing w/support of grab bar, cues for safety precautions an d positioning. Pt was able to wash body without assit, SBA provided for general safety durin g standing portions when doing pericare. Bathing, Level of [place]: stand by assist, verbal cues required, set up required Assistive Device: grab bars, hand-held shower head, shower chair with back Bathing Assess/Train, Position: sitting, standing Bathing Impairments: decreased flexibility, sensation decreased, strength decreased, impair ed balance, impaired vision, impaired functional endurance/activity tolerance, motor control impaired Pt retrieved clean clothes from closet, ambulated to shower room, donned T shirt when done w/shower while sitting on shower chair. Supervision for general safety. UB Dressing, Level of [place]: supervised, verbal cues required Assistive Device: none UB Dressing Assess/Train, Position: sitting UB Dressing Impairments: sensation decreased, impaired vision, coordination impaired, impai red cognition, motor control impaired, impaired balance Pt doffed shoes and SINGH hoes prior to shower. After bathing he was able to don shorts, sock s, and shoes. He was reminded to thread L LE first to help technique. He was able to tie lac es w/no assist. LB Dressing, Level of [place]: supervised, verbal cues required Assistive Device: none LB Dressing Assess/Train, Position: sitting, standing LB Dressing Impairments: impaired vision, decreased flexibility, coordination impaired, mot or control impaired, sensation decreased, impaired functional endurance/activity tolerance, impaired balance, ROM decreased Sat on shower chair to comb hair and apply deodorant. Grooming, Level of [place]: set up required Assistive Device: none Grooming Assess/Train, Position: sitting Grooming Impairments: coordination impaired, impaired vision, sensation decreased, impaired balance Neuro Reeducation Worked on Neuro doing a 20 piece nature puzzle. Needed frequent reminders to look to left. He was able to pick puzzle pieces up and flip over. Had hard time w/wooden pieces when match ing together. Required tactile and visual cues throuout entire puzzle and VC's for placement . Struggled w/finding matches and placing them together. He did better once half the puzzle was completed. He was then able to make out the picture and place the missing pieces, but st ill needed cueing. L FMC/vision were addressed during this activity. Transfers Supervision for general safety and occasional cues for scanning environment for ambulating. Sit-Stand, Level of [place]: supervised Stand-Sit, Level of [place]: supervised, verbal cues required [id number], Assistive Device: none Tub, Level of [place]: stand by assist, verbal cues required Tub, Assistive Device: grab bars, shower chair Safety Issues: balance decreased during turns, sequencing ability decreased Impairments: sensation decreased, strength decreased, postural control impaired, impaired v ision, impaired balance, coordination impaired OT Goal Review Date Most Recent Value STG Review Date 04/18/20 at 04/11/2020 0922 LTG Review Date 04/25/20 at 04/11/2020 0922 Grooming Goal Most Recent Value STG Status met at 04/13/2020 1210 STG [place] Level supervised at 04/11/2020 0922 STG Position standing at 04/11/2020 0922 STG Adaptive Equipment none at 04/11/2020 0922 LTG Status progressing at 04/22/2020 1207 LTG [place] Level modified independent at 04/11/2020 0922 LTG Position standing at 04/11/2020 0922 LTG Adaptive Equipment none at 04/11/2020 0922 Bathing Goal Most Recent Value STG Status met [Score taken 04/16 PM tx] at 04/18/2020 1105 STG [place] Level supervised, set up required, verbal cues required at 04/11/2020 092 2 STG Adaptive Equpiment grab bars, shower head, detachable, sponge, long handled, shower ch air, shower chair with back at 04/11/2020 0922 STG Position sitting, standing at 04/11/2020 0922 LTG Status progressing at 04/22/2020 1207 LTG [place] Level modified independent at 04/11/2020 0922 LTG Adaptive Equpiment grab bars, shower head, detachable, sponge, long handled, shower ch air, shower chair with back at 04/11/2020 0922 LTG Position sitting, standing at 04/11/2020 0922 UB Dressing Goal Most Recent Value STG Status met at 04/12/2020 1158 STG [place] Level supervised, set up required, verbal cues required at 04/11/2020 092 2 STG Adaptive Equipment none at 04/11/2020 0922 LTG Status progressing at 04/22/2020 1207 LTG [place] Level modified independent at 04/11/2020 0922 LTG Adaptive Equipment none at 04/11/2020 0922 LTG Comments including clothing retrieval at 04/12/2020 1158 LB Dressing Goal Most Recent Value STG Status met [Except for TEDs, Score taken 520 PM tx] at 04/18/2020 1105 STG [place] Level supervised, set up required, verbal cues required at 04/11/2020 092 2 STG Adaptive Equipment sock-aid, shoe horn, long handled, sisal operator at 04/11/2020 0922 LTG Status progressing at 04/22/2020 1207 LTG [place] Level modified independent at 04/11/2020 0922 LTG Adaptive Equipment shoe horn, long handled, sock-aid, sisal operator at 04/11/2020 0922 LTG Comments including clothing retrieval at 04/12/2020 1158 Toileting Goal Most Recent Value STG Status met at 04/13/2020 1210 STG [place] Level supervised, set up required, verbal cues required at 04/11/2020 092 2 STG Assistive Device grab bar at 04/11/2020 0922 LTG Status progressing at 04/21/2020 1137 LTG [place] Level modified independent at 04/11/2020 0922 LTG Assistive Device grab bar at 04/11/2020 0922 Toilet Transfer Goal Most Recent Value STG Status met at 04/13/2020 1210 STG [place] Level supervised, set up required, verbal cues required at 04/11/2020 092 2 STG Assistive Device grab bars at 04/11/2020 0922 LTG Status progressing at 04/21/2020 1137 LTG [place] Level modified independent at 04/11/2020 0922 LTG Assistive Device grab bars at 04/11/2020 0922 Tub/Shower Transfer Goal Most Recent Value Tub/Shower Type tub/shower combo at 04/11/2020 0922 STG Status met at 04/18/2020 1105 STG [place] Level supervised, set up required, verbal cues required at 04/11/2020 092 2 STG Assistive Device grab bars, shower chair at 04/11/2020921 LTG Status progressing at 04/22/2020 1207 LTG [place] Level modified independent at 04/11/2020 0922 LTG Assistive Device grab bars, shower chair at 04/11/2020 0922 IADL Goal Most Recent Value STG Status not met at 04/18/2020 1105 STG Pt will be supervision vcs setup prn for meal preparation task at 04/11/2020921 LTG Status progressing at 04/17/2020 1207 LTG Pt will be Mod I for meal preparation task at 04/11/2020 09 Vision Goal Most Recent Value STG Status met at 04/18/2020 1105 STG Pt will participate in eye exercises to increase ocular alignment, initiate saccadic e ye motion, increase VOR with eye focusing, and decrease diplopia as well as increase depth p erception and spatial relations to improve visual functions for ADLs, functional mobility/tf s. at 04/11/2020 0922 LTG Status progressing at 04/22/2020 1207 LTG Pt will report improvements to visual deficits impact on ADLs and utilize visual compe nsatory strategies indep at 04/11/2020 09 Additional Goals #1 OT Most Recent Value STG Status met [Score taken 5/20 AM tx] at 04/18/2020 1105 STG Pt will participate in tasks to increase/improve LUE sensation and coordination. at 0 04/11/2020 0922 LTG Status progressing at 04/21/2020 1137 LTG Pt L hand fine motor coordination will be improved as evidenced by L hand performance on the 9 hole peg test in 90 seconds or less. at 04/12/2020 1158 Electronically signed by: DAWNA Solares, 04/22/2020 1:46 PM lan of Care - Marylu, Dusty Levin, [employer]OR [employer]ER - 04/22/2020 9:48 AM PDT IRF Physical Therapy Plan of Care Treatment Note Summary: Efren has been participating in physical therapy for treatment of Impaired balance , gait instability, impaired vision, coordination and sensation on (L) side following CVA . 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 Emphasis of session included environmental awareness and problem solving for safety. Maxime burroughs demonstrates progress towards functional goals as evidenced by pt with improved path f inding, cross body movement and problem sloving. RN cleared patient for participation in therapy. Patient was agreeable to therapy. Patient participated without adverse reaction. RN debriefed on therapy session and patient status. P atient is encouraged to ambulate into hallway with nursing staff. It is encouraged that the patient be up in chair for all meals. Recommended mobility with nursing: Day Night into the bathroom and into the hallway into the bathroom and into the hallway No Assistive Device No Assistive Device supervision / set-up supervision / set-up Remaining barriers to discharge and functional limitations include decreased insight into s afety and deficits, stairs at home, and not yet able to mobilize at level safe for home disc harge. Efren will benefit from continued therapeutic intervention to address ongoing impairments an d increase safety and independence with activities necessary for safe discharge. Refer jean-pierre valle for specific details regarding functional levels. Physical Therapy Discharge Recommendations are: Recommended discharge disposition: home with assist Post discharge physical therapy recommendation: outpatient therapy Equipment Recommendations: none Planned Interventions: balance training, bed mobility training, gait training, home exerci se program, patient/family education, strengthening, transfer training, stair training, chay r coordination training, neuromuscular re-education Frequency: daily(1-2x/day, IRF) Patient Status/Goals: Reflects last filed data and may be from multiple contributors. Bed Mobility Pt demo'd Mod I and safety awareness to to properly move objects and set bed up so he was n ot lying on his glasses or cords Assistive Device: none Roll Left, Level of [place]: modified independent Roll Right, Level of [place]: modified independent Scoot/Bridge, Level of [place]: modified independent Supine to Sit, Level of [place]: modified independent Sit to Supine, Level of [place]: modified independent Impairments: impaired vision Transfers supervision for general safety and intermittent cues for scanning environment and problem s olving to make task safer Bed-Chair, Level of [place]: supervised, verbal cues required Chair-Bed, Level of [place]: supervised, verbal cues required Une-[id number]-Lvz, Assistive Device: none Sit-Stand, Level of [place]: supervised Stand-Sit, Level of [place]: supervised Oan-Znvlo-Jaq, Assistive Device: none Toilet, Level of [place]: supervised Toilet, Assistive Device: grab bars Safety Issues: balance decreased during turns, sequencing ability decreased Impairments: sensation decreased, strength decreased, postural control impaired, impaired v ision, impaired balance, coordination impaired Gait path finding, environmental awareness, problem solving in holt, room and new environments Level of [place]: verbal cues required, supervised Assistive Device: none Distance (feet): 550 Gait Pattern Analysis: 2-point gait Gait Deviations: stride width increased, pxf-sa-fhlyt clearance decreased Safety Issues: balance decreased during turns Impairments: impaired balance, coordination impaired, impaired vision, motor control impair ed, postural control impaired Balance Sitting Balance: Static: normal balance Sitting Balance: Dynamic: normal balance Standing Balance: Static: good balance Standing Balance: Dynamic: good balance Therapeutic Exercise PNF patterns with UE holding ball and following with head and eyes; 5 min Scifit warm up Functional Endurance good for activities completed PT Goal Review Date Most Recent Value STG Review Date 04/18/20 at 04/11/2020 1108 LTG Review Date 04/25/20 at 04/11/2020 1108 [id number] Goal Most Recent Value STG Status met at 04/14/2020 0935 STG [place] Level supervised at 04/11/2020 1108 STG Assistive Device none at 04/11/2020 1108 LTG Status met at 04/14/2020 0935 LTG [place] Level modified independent at 04/11/2020 1108 LTG Assistive Device none at 04/11/2020 1108 Yqc-Tzqdz-Cap Goal Most Recent Value STG Status met at 04/15/2020 1345 STG [place] Level supervised at 04/11/2020 1108 STG Assistive Device none at 04/11/2020 1108 LTG Status progressing at 04/22/2020 0948 LTG [place] Level modified independent at 04/11/2020 1108 LTG Assistive Device none at 04/11/2020 1108 Gait Goal Most Recent Value STG Status met at 04/14/2020 0935 STG [place] Level stand by assist at 04/11/2020 1108 STG Assistive Device none at 04/11/2020 1108 STG Distance (feet) 300' at 04/11/2020 1108 LTG Status met at 04/20/2020 1105 LTG [place] Level supervised at 04/11/2020 1108 LTG Assistive Device none at 04/11/2020 1108 LTG Distance (feet) > 1,000' at 04/15/2020 1345 LTG Comments for community mobility at 04/15/2020 1345 Stair Goal Most Recent Value STG Status met at 04/18/2020 0923 STG [place] Level supervised at 04/11/2020 1108 STG Assistive Device 2 rails at 04/11/2020 1108 STG Number of Stairs 12 at 04/11/2020 1108 LTG Status progressing at 04/21/2020 0924 LTG [place] Level modified independent at 04/11/2020 1108 LTG Assistive Device 2 rails at 04/11/2020 1108 LTG Number of Stairs 12 at 04/11/2020 1108 Additional Goal #1 PT Most Recent Value STG Status met at 04/18/2020 0923 STG Pt will demonstrate improve DGI score to 15/24 to reduce fall risk. at 04/11/2020 1108 LTG Status progressing at 04/19/2020 1355 LTG Improve DGI score to >19/24 to reduce fall rsik. at 04/11/2020 1108 Electronically signed by: Dusty Valero PTA, 04/22/2020 11:16 AM lan of Care - Lenora Delgado Spee ch Pathologist - 04/22/2020 8:56 AM PDT IRF Speech Therapy Plan of Care Treatment Note Summary: Efren has been participating in speech therapy for treatment of Moderately impair ed immediate and delayed memory, mildly impaired visuospatial skills. Emphasis of session in cluded continued training in use of external systems to improve recall and scanning skills; specifically training in use of "Vince" application on pt's personal tablet. Patient demonstr ates progress towards functional goals as evidenced by not needing any cues to put in voice recorded vince. Remaining barriers to Cognition include comorbidities, written language abili ties. Patient was initially irritated, as he thought he was told that his discharge date had been postpones indefinitely. SAND WORKER provided reassurance that was not the case, pt immediately felt much better. Pt demonstrated need for minimal cues initially, with ability to independently add a voice vince, access a voice vince, and to edit on two separate occasions. Re-education on need to scan left to right, top to bottom in organized fashion to decrease missing someth ing on left side when scanning; pt verbalized and demonstrated understanding during structur ed tasks. Efren will benefit from continued therapeutic intervention to address ongoing impairments an d increase safety and independence. Refer below for specific details regarding specifics of session and impairments. Speech Language Pathology Discharge Recommendations are: Recommended discharge disposition: home with family/caregiver Post discharge speech language pathology recommendation: continue SAND WORKER tx for cognitive-dillon guistic, outpatient therapy Planned Interventions: compensatory strategies, memory, executive function skills, reading , cognitive stimulation, other (see comments) Recommended Frequency: 5 times/wk Patient Status/Goals: Reflects last filed data and may be from multiple contributors. Cognitive Pt was upset as he thought his discharge date had changed Mood/Behavior: calm, cooperative Orientation: oriented x 4 Attention: WNL/WFL Arousal Level: opens eyes spontaneously Speech: logical, clear, spontaneous Cognition Goal Most Recent Value STG Status met [Pt initiated SAND WORKER filling out memory book with no cues] at 04/22/2020 0856 STG Pt will recall to use memory book to compensate for episodic memory impairment with m in cues from SAND WORKER in 3 consecutive sessions. at 04/15/2020 1339 Additional Goals #1 SAND WORKER Most Recent Value STG Status met at 04/14/2020 1430 STG Pt will verbally name 10 items in room from left space to target left visual neglect i ndep. at 04/12/2020 1224 LTG Status continued, progressing at 04/22/2020 0856 LTG Pt will complete functional reading tasks with 4/5 success on independent use of scann ing strateges e.g. recalling to scall all the way to left at 04/15/2020 1339 Additional Goals #2 SAND WORKER Most Recent Value STG Status continued, progressing at 04/22/2020 0856 STG Patient will use self selected compensatory strategy during structured immediate memor y tasks in 4/5 opportunities with mod cues from SAND WORKER. at 04/15/2020 1339 Additional Goals #3 SAND WORKER Most Recent Value STG Status continued, progressing at 04/21/2020 1333 STG Patient will participate in education of compensatory strategies for improved STM at 0 04/15/2020 1339 LTG Status continued, progressing at 04/22/2020 0856 LTG Patient will utilize compensatory strategies for improved recall 4/5 opportunities ove r 3 consecutive sessions and min cues at 04/12/2020 1224 Electronically signed by: Lenora Delgado Speech Pathologist, 04/22/2020 9:11 AMElectronic ally signed by Lenora Delgado Speech Pathologist at 04/22/2020 9:18 AM PDTPlan of Martha - Valeria, Yaa Levin RN - 04/22/2020 5:08 AM PDTGreg had a good night tonight, continues to have bouts of anxiety but calls appropriately for assistance. L sided neglect still evident at times with L field of vision loss, stable transfers with supervision. Ataxia noted GAGE gonzalez stroke assessment. PRN Tylenol for headaches. Will continue to monitor for any changes. Remains free from falls, hourly safety rounds [...] Fall and Fall-Related Injury Outcome: Ongoing, progressing Problem: Adjustment to Illness (Stroke, Ischemic/Transient Ischemic Attack) Goal: Optimal Coping Outcome: Ongoing, progressing Problem: Bowel Elimination Impaired (Stroke, Ischemic/Transient Ischemic Attack) Goal: Effective Bowel Elimination Outcome: Ongoing, progressing Problem: Cerebral Tissue Perfusion Risk (Stroke, Ischemic/Transient Ischemic Attack) Goal: Optimal Cerebral Tissue Perfusion Outcome: Ongoing, progressing Problem: Eating/Swallowing Impairment (Stroke, Ischemic/Transient Ischemic Attack) Goal: Oral Intake without Aspiration Outcome: Ongoing, progressing Problem: Functional Ability Impaired (Stroke, Ischemic/Transient Ischemic Attack) Goal: Optimal Functional Ability Outcome: Ongoing, progressing Problem: Pain (Stroke, Ischemic/Transient Ischemic Attack) Goal: Acceptable Pain Control Outcome: Ongoing, progressing Problem: Urinary Elimination Impaired (Stroke, Ischemic/Transient Ischemic Attack) Goal: Effective Urinary Elimination Outcome: Ongoing, progressing Problem: Discharge Planning Goal: Patient's discharge needs will be identified in a timely manner Outcome: Ongoing, progressing Goal: Patient will be discharged in a safe manner Outcome: Ongoing, progressing Problem: Self-Care Deficit Goal: Improved Ability to Complete Activities of Daily Living Outcome: Ongoing, progressing Problem: Mobility Impairment Goal: Optimal Mobility Outcome: Ongoing, progressing Problem: Cognitive Impairment Goal: Optimal Functional [place] Outcome: Ongoing, progressing Problem: Skin Injury Risk Increased Goal: Skin Health and Integrity Outcome: Ongoing, progressing Problem: Spiritual Distress Risk or Actual Goal: Spiritual Wellbeing Outcome: Ongoing, progressing lan of Care - Dwayne Stone OT - 04/21/2020 11:37 AM PDT IRF Occupational Therapy Plan of Care Treatment Note Summary: Efren has been participating in occupational therapy for treatment of decreased s afety/capacity for indep with ADLs, IADLs, functional mobility/tfs following admission after Ischemic cerebrovascular accident (CVA) . Emphasis of session included UB dressing includi ng clothing retrieval, grooming, toileting, functional mobility, wayfinding, L hand FMC and visual-motor activities to promote function in daily activities. Patient demonstrates progr ess towards functional goals as evidenced by good participation throughout session, improvin g with L visual scanning and L hand FMC. Patient was agreeable to therapy. Patient participated without adverse reaction. Patient is encouraged to ambulate into hallway with nursing staff. It is encouraged that the patient b e up in chair for all meals. Recommended toileting with nursing: Day Night toilet toilet No Assistive Device No Assistive Device supervision / set-up supervision / set-up Remaining barriers to discharge and functional limitations include decreased functional act ivity tolerance, decreased functional transfers, decreased ability to perform ADLs, decrease d ability to perform IADLs, decreased ability to perform medication management, and medical status. Efren will benefit from continued therapeutic intervention to address ongoing impairments an d increase safety and independence with activities necessary for safe discharge. Refer jean-pierre valle for specific details regarding functional levels. Occupational Therapy Discharge Recommendations are: Recommended discharge disposition: home with assist Post discharge occupational therapy recommendation: home health, other (see comment), outp atient therapy Equipment Recommendations: sisal operator Planned Interventions:ADL retraining, balance training, fine motor coordination training, f unctional endurance training, motor coordination training, neuromuscular re-education, patie nt/family education, transfer training, visual/perceptual retraining, IADL retraining, bed m obility training, ROM (Range of Motion), strengthening, other (see comments)(sensory) Recommended Frequency: (rehab schedule) Patient Status/Goals: Reflects last filed data and may be from multiple contributors. ADLs Pt wanted to change his shirt d/t getting food on his shirt from breakfast this AM. Pt also completed toileting x2 and grooming this session. Pt retrieved a shirt from the pile of clothes on the counter with min cues for attention to L side, ambulated to the bathroom, and changed shirt in standing, able to do so with superv ision for general safety UB Dressing, Level of [place]: supervised, verbal cues required Assistive Device: none UB Dressing Assess/Train, Position: standing UB Dressing Impairments: sensation decreased, impaired vision, coordination impaired, impai red cognition, motor control impaired, impaired balance Standing void x2 this session, no physical assist required, no LOB, mod I for isolated toil eting activity, supervision for mobility to/from bathroom. Setup according to IFPAI d/t requ iring supervision assist before/after activity. Toileting, Level of [place]: set up required Assistive Device: grab bar Toileting Assess/Train, Position: standing Toileting Impairments: impaired vision, coordination impaired, impaired functional enduranc e/activity tolerance, sensation decreased, impaired balance Stood at the sink to wash hands and complete oral care, no physical assist required, no cue ing required. Pt also seen scanning towards L to locate items. Mod I for isolated grooming a ctivity, however requires supervision for ambulation to/from bathroom. Setup according to I FPAI d/t requiring supervision assist before/after activity. Grooming, Level of [place]: set up required Assistive Device: none Grooming Assess/Train, Position: standing Grooming Impairments: coordination impaired, impaired vision, sensation decreased, impaired balance Therapeutic Activity Pt requested to work "with his hands" this AM, specifically working with the cards again. Karis carlisle, pt instructed therapist on how to play a simple card game. Pt worked on bilateral coor dination, with emphasis on L hand fine motor skills, hand-eye coordination, motor planning, sensorimotor skills by handling a deck of cards to shuffle, deal cards, and manipulate cards using the L hand. Therapist placed cards on the table towards L side to encourage pt to sca n to L side. Pt did require mod cues throughout the card game to continue to work on the L h and managing the cards as well as scanning towards L to not miss seeing cards that would aff ect game playing. Pt able to recall instructions of the game without assist, intermittently providing hints/tips for therapist. Towards end of the card game, pt had the L forearm on th e table, on top of a pile of cards, and accidently dropped the pile on the floor, d/t impair ed L arm sensation. Educated pt to continue to scan towards L side and attend to GAGE arce. Pt worked on picking up cards off the floor, one by one and placing cards on the table . Overall, pt is improving with L hand FMC and scanning towards L, though cont. to require m od cues. Functional Endurance Good for activities completed Cognitive Improving pathfinding using visual anchors, though does need prompting/cues. Able to recall activities completed this session, written in memory book. Mood/Behavior: calm, cooperative Arousal Level: opens eyes spontaneously Speech: logical, clear, spontaneous Bed Mobility NT, pt up in chair upon arrival, returned to chair at end of session Transfers Supervision for general safety, no physical assist required however does need intermittent cues for surroundings/safe techniques, though improving. Sit-Stand, Level of [place]: supervised Stand-Sit, Level of [place]: supervised [id number], Assistive Device: none Toilet, Level of [place]: supervised Toilet, Assistive Device: grab bars Safety Issues: balance decreased during turns, sequencing ability decreased Impairments: sensation decreased, strength decreased, postural control impaired, impaired v ision, impaired balance, coordination impaired OT Goal Review Date Most Recent Value STG Review Date 04/18/20 at 04/11/2020 0922 LTG Review Date 04/25/20 at 04/11/2020 0922 Grooming Goal Most Recent Value STG Status met at 04/13/2020 1210 STG [place] Level supervised at 04/11/2020 0922 STG Position standing at 04/11/2020 0922 STG Adaptive Equipment none at 04/11/2020 0922 LTG Status progressing at 04/21/2020 1137 LTG [place] Level modified independent at 04/11/2020 0922 LTG Position standing at 04/11/2020 0922 LTG Adaptive Equipment none at 04/11/2020 0922 Bathing Goal Most Recent Value STG Status met [Score taken 04/16 PM tx] at 04/18/2020 1105 STG [place] Level supervised, set up required, verbal cues required at 04/11/2020 092 2 STG Adaptive Equpiment grab bars, shower head, detachable, sponge, long handled, shower ch air, shower chair with back at 04/11/2020 0922 STG Position sitting, standing at 04/11/2020 0922 LTG Status progressing at 04/19/2020 1522 LTG [place] Level modified independent at 04/11/2020 0922 LTG Adaptive Equpiment grab bars, shower head, detachable, sponge, long handled, shower ch air, shower chair with back at 04/11/2020 0922 LTG Position sitting, standing at 04/11/2020 0922 UB Dressing Goal Most Recent Value STG Status met at 04/12/2020 1158 STG [place] Level supervised, set up required, verbal cues required at 04/11/2020 092 2 STG Adaptive Equipment none at 04/11/2020 0922 LTG Status progressing at 04/21/2020 1137 LTG [place] Level modified independent at 04/11/2020 0922 LTG Adaptive Equipment none at 04/11/2020 0922 LTG Comments including clothing retrieval at 04/12/2020 1158 LB Dressing Goal Most Recent Value STG Status met [Except for TEDs, Score taken 04/16 PM tx] at 04/18/2020 1105 STG [place] Level supervised, set up required, verbal cues required at 04/11/2020 092 2 STG Adaptive Equipment sock-aid, shoe horn, long handled, sisal operator at 04/11/2020 0922 LTG Status progressing at 04/20/2020 0922 LTG [place] Level modified independent at 04/11/2020 0922 LTG Adaptive Equipment shoe horn, long handled, sock-aid, sisal operator at 04/11/2020 0922 LTG Comments including clothing retrieval at 04/12/2020 1158 Toileting Goal Most Recent Value STG Status met at 04/13/2020 1210 STG [place] Level supervised, set up required, verbal cues required at 04/11/2020 092 2 STG Assistive Device grab bar at 04/11/2020 0922 LTG Status progressing at 04/21/2020 1137 LTG [place] Level modified independent at 04/11/2020 0922 LTG Assistive Device grab bar at 04/11/2020 0922 Toilet Transfer Goal Most Recent Value STG Status met at 04/13/2020 1210 STG [place] Level supervised, set up required, verbal cues required at 04/11/2020 092 2 STG Assistive Device grab bars at 04/11/2020 0922 LTG Status progressing at 04/21/2020 1137 LTG [place] Level modified independent at 04/11/2020 0922 LTG Assistive Device grab bars at 04/11/2020 0922 Tub/Shower Transfer Goal Most Recent Value Tub/Shower Type tub/shower combo at 04/11/2020 0922 STG Status met at 04/18/2020 1105 STG [place] Level supervised, set up required, verbal cues required at 04/11/2020 092 2 STG Assistive Device grab bars, shower chair at 04/11/2020 0922 LTG Status progressing at 04/19/2020 1522 LTG [place] Level modified independent at 04/11/2020 0922 LTG Assistive Device grab bars, shower chair at 04/11/2020 0922 IADL Goal Most Recent Value STG Status not met at 04/18/2020 1105 STG Pt will be supervision vcs setup prn for meal preparation task at 04/11/2020 0922 LTG Status progressing at 04/17/2020 1207 LTG Pt will be Mod I for meal preparation task at 04/11/2020 0922 Vision Goal Most Recent Value STG Status met at 04/18/2020 1105 STG Pt will participate in eye exercises to increase ocular alignment, initiate saccadic e ye motion, increase VOR with eye focusing, and decrease diplopia as well as increase depth p erception and spatial relations to improve visual functions for ADLs, functional mobility/tf s. at 04/11/2020 0922 LTG Status progressing at 04/21/2020 1137 LTG Pt will report improvements to visual deficits impact on ADLs and utilize visual compe nsatory strategies indep at 04/11/2020 0922 Additional Goals #1 OT Most Recent Value STG Status met [Score taken 04/16 AM tx] at 04/18/2020 1105 STG Pt will participate in tasks to increase/improve LUE sensation and coordination. at 0 04/11/2020 0922 LTG Status progressing at 04/21/2020 1137 LTG Pt L hand fine motor coordination will be improved as evidenced by L hand performance on the 9 hole peg test in 90 seconds or less. at 04/12/2020 1158 Electronically signed by: Dwayne IBARRA OT, 04/21/2020 5:08 PM lan of Care - Marylu, Dusty Levin, [employer] - 2019 9:24 AM PDT IRF Physical Therapy Plan of Care Treatment Note Summary: Efren has been participating in physical therapy for treatment of Impaired balance , gait instability, impaired vision, coordination and sensation on (L) side following CVA . 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 Emphasis of session included neuro re-ed, path finding and stair training. Patient demo nstrates progress towards functional goals as evidenced by pt was able to demo [id number] p descending stair. RN cleared patient for participation in therapy. Patient was agreeable to therapy. Patient participated without adverse reaction. RN debriefed on therapy session and patient status. P atient is encouraged to ambulate into hallway with nursing staff. It is encouraged that the patient be up in chair for all meals. Recommended mobility with nursing: Day Night into the bathroom into the bathroom No Assistive Device No Assistive Device supervision / set-up supervision / set-up Remaining barriers to discharge and functional limitations include decreased insight into s afety and deficits, stairs at home, not yet able to mobilize at level safe for home discharg e, and medical status. Efren will benefit from continued therapeutic intervention to address ongoing impairments an d increase safety and independence with activities necessary for safe discharge. Refer jean-pierre valle for specific details regarding functional levels. Physical Therapy Discharge Recommendations are: Recommended discharge disposition: home with assist Post discharge physical therapy recommendation: outpatient therapy Equipment Recommendations: none Planned Interventions: balance training, bed mobility training, gait training, home exerci se program, patient/family education, strengthening, transfer training, stair training, chay r coordination training, neuromuscular re-education Frequency: daily(1-2x/day, IRF) Patient Status/Goals: Reflects last filed data and may be from multiple contributors. Bed Mobility Pt continues to perform at Mod I, pt can with extra time pt can complete rolling without be d rails Assistive Device: none Roll Left, Level of [place]: modified independent Roll Right, Level of [place]: modified independent Scoot/Bridge, Level of [place]: modified independent Supine to Sit, Level of [place]: modified independent Sit to Supine, Level of [place]: modified independent Impairments: impaired vision Transfers supervision for general safety and intermittent v/c; pt tried to squeeze between tray table and bed vs pushing tray table to the side make the task safer and easier Bed-Chair, Level of [place]: supervised, verbal cues required Chair-Bed, Level of [place]: supervised, verbal cues required [id number], Assistive Device: none Sit-Stand, Level of [place]: supervised Stand-Sit, Level of [place]: supervised [id number], Assistive Device: none Toilet, Level of [place]: supervised Toilet, Assistive Device: grab bars Safety Issues: balance decreased during turns, sequencing ability decreased Impairments: sensation decreased, strength decreased, postural control impaired, impaired v ision, impaired balance, coordination impaired Gait gt with multitasking; passing ball horizontal following with head and eyes while trying to walk straight; pt with small stumbles no full LOB; gt training for distance without carrying object Level of [place]: verbal cues required, supervised Assistive Device: none Distance (feet): 650 Gait Pattern Analysis: 2-point gait Gait Deviations: stride width increased, [id number] clearance decreased Safety Issues: balance decreased during turns Impairments: impaired balance, coordination impaired, impaired vision, motor control impair ed, postural control impaired Stairs pt completed full flight of stair; pt was able to demo step over step descending, stopping every 3-5 steps briefly to check his balance and foot placement Number of Stairs: 24 Handrail Location: right side (ascending) Level of [place]: supervised Assistive Device: 1 rail Technique Used: step over step (ascending), step over step (descending) Safety Issues: balance decreased during turns, weight-shifting ability decreased Impairments: impaired balance, coordination impaired, impaired vision, motor control impair ed, sensory feedback impaired Balance Sitting Balance: Static: normal balance Sitting Balance: Dynamic: normal balance Standing Balance: Static: good balance Standing Balance: Dynamic: good balance Therapeutic Exercise Balance exercises: midline orientation, walk forward, turn 360 degrees, carry items, walk b ackwards, turn 180 degrees, sudden stops, throw, head turns, catch(Shuttle balance, set on g reen, catching/throwing ball; head and trunk turns left/right) Repetitions: total of 12 minutes Neuromuscular Reeducation: static standing passing ball at a diaginal; pt needing v/c to fo llow ball with his head and eyes and to remember pattern; 4 square grid for foot clearance a nd stepping Functional Endurance good for activities completed PT Goal Review Date Most Recent Value STG Review Date 04/18/20 at 04/11/2020 1108 LTG Review Date 04/25/20 at 04/11/2020 1108 [id number] Goal Most Recent Value STG Status met at 04/14/2020 0935 STG [place] Level supervised at 04/11/2020 1108 STG Assistive Device none at 04/11/2020 1108 LTG Status met at 04/14/2020 0935 LTG [place] Level modified independent at 04/11/2020 1108 LTG Assistive Device none at 04/11/2020 1108 [id number] Goal Most Recent Value STG Status met at 04/15/2020 1345 STG [place] Level supervised at 04/11/2020 1108 STG Assistive Device none at 04/11/2020 1108 LTG Status progressing at 04/21/2020 0924 LTG [place] Level modified independent at 04/11/2020 1108 LTG Assistive Device none at 04/11/2020 1108 Gait Goal Most Recent Value STG Status met at 04/14/2020 0935 STG [place] Level stand by assist at 04/11/2020 1108 STG Assistive Device none at 04/11/2020 1108 STG Distance (feet) 300' at 04/11/2020 1108 LTG Status met at 04/20/2020 1105 LTG [place] Level supervised at 04/11/2020 1108 LTG Assistive Device none at 04/11/2020 1108 LTG Distance (feet) > 1,000' at 04/15/2020 1345 LTG Comments for community mobility at 04/15/2020 1345 Stair Goal Most Recent Value STG Status met at 04/18/2020 0923 STG [place] Level supervised at 04/11/2020 1108 STG Assistive Device 2 rails at 04/11/2020 1108 STG Number of Stairs 12 at 04/11/2020 1108 LTG Status progressing at 04/21/2020 0924 LTG [place] Level modified independent at 04/11/2020 1108 LTG Assistive Device 2 rails at 04/11/2020 1108 LTG Number of Stairs 12 at 04/11/2020 1108 Additional Goal #1 PT Most Recent Value STG Status met at 04/18/2020 0923 STG Pt will demonstrate improve DGI score to 15/24 to reduce fall risk. at 04/11/2020 1108 LTG Status progressing at 04/19/2020 1355 LTG Improve DGI score to >19/24 to reduce fall rsik. at 04/11/2020 1108 Electronically signed by: Dusty Valero PTA, 04/21/2020 12:04 PM atient Care Conference - Rufino Vanegas MD - 04/21/2020 7:47 AM PDTFormatting of this note might be different from th e original. [facility] Individualized Overall Plan of Care Weekly Team Conference Patient Identification Efren Pollack is a 55 y.o. male. : 1965 Admit Date: 04/10/2020 Attending Provider: Wiliam Vanegas,* Primary Care Physician: KORY Galarza Admitting Diagnosis: CVA Team Conference Date: 04/22/2020 Medical Prognosis and need for Rehabilitation Physician oversight and anticipated Rehabilit ation Physician interventions: [place] for functional progress is good. Physician Summary: 1. CVA with left hemiparesis: mild. Main barrier is d/c his sensory loss and field cut -: strength good, function improving. 2. 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 He also tends to ignore the left side -: improving, but still mild to moderate left sided neglect noted, especially with clover golden. Better spontaneous use today also of left arm. 3. Left visual field cut: moderate. Learning to compensate, but still tends to run into th ing on the left -04/14-: improving, but still significant problem and probably main barrier to independent and safe living. -04/17: fall to left last night, no injury, neuro intact. Head CT no change. -: no new problems today, improving compensation, but still needs supervision. 4. PTSD: moderately severe, but under control so far with Klonopin, Xanax -04/14: moderate problems over the weekend. He was on atarax also at home, so I ordered [place] t, plus he was on bid klonopin at home and would rather avoid the xanax, so I changed that t o BID. -04/15:moved to other side of building from where helicopters land, as they set off his PTSD . -04/16-: better with move -04/18: xanax today d/t panic attack with good benefit and not interfere with therapies. -: stable 5. Hypotension: BP down to 102 this morning, as well as in PT, so I cut back on his clonopi ne to .1mg bid and asked OT to check BP when they first see him -04/14: bp improving, still a little low for post CVA, but no symptoms; lowest systolic wa s 110, but transient and no symptoms, still on BK TEDS. -04/15: bp down to 102, then up to 137, no symptoms, continue TEDS -04/16: down to 112 today, no symptoms, continue to monitor closely. -04/17: bp slowly coming up, low 114 today. -04/18: bp stabilizing 110-120's range. -04/21-: down to 10's transiently, no symptoms, continue TEDs 6. Tobacco Abuse: on nicotine patches and doing ok for now. -: stable on nicotine patches. Rehabilitation Nursing Summary: Continues to have bouts of anxiety but calls appropriately for assistance. Left sided neglect still evident at times with Left field of vision loss, s table transfers with supervision. Ataxia noted LUE with stroke assessment. PRN Tylenol for headaches. No residual effects from fall on 04/16 caused by knee buckling during transfer wit h staff. Last bowel movement 04/20. Safety Management: Elopement/wander risk: No Safety Management Goal: Efren will call out appropriately for assistance and will have no f alls during hospitalization stay Pain Management: Pain ratin Pain Management Goal: Clints pain will be controlled to allow for activity and rest Skin Management: Brooks Score: 19 Skin Management Goal: Clints skin will have no new breakdowns Bladder Management: Bladder Management Goal: Efren will be continent of bladder using urinal and/or BR Bowel Management: Bowel Management Goal: Efren will be continent of bowel using BR Nutrition Management: Nutrition Management Goal: Efren will eat 75-100% most meals and will drink adequate amount fluids Efren is eating 100% of a low fat diet. Fluid intake yesterday per I/O was 2827 mL. Intak e overall is good, will f/u to note need for interventions. Nightime Management: Nighttime Management Goal: Efren will report adequate sleep at night Mobility Summary: Pt david's good strength and activity tolerance. Pt with good recall for therapists he was worked with and their names. Able to remember all tasks completed for vince ry book at end of session. Pt showing little carryover for path finding and problem solving. Supervision for all OOB activity and intermittent v/c for problem solving and safety. Shows improvement with scanning environment, however is still running into things on his left haylie e due in part to his visual deficits. Pt is motivated and works hard during sessions. PT Equipment Recommendations: none Bed Mobility Section GG: Roll Left and Right Assistance Needed: Independent Physical Assistance Level: 06 - Independent CARE Score: 6 Section GG: Sit to Lying Assistance Needed: Independent Physical Assistance Level: 06 - Independent CARE Score: 6 Section GG: Lying to Sitting on Side of Bed Assistance Needed: Independent Physical Assistance Level: 06 - Independent CARE Score: 6 Transfers Section GG: Sit to Stand Assistance Needed: Supervision Physical Assistance Level: 04 - Supervision or touching assistance CARE Score: 4 Section GG: Toilet Transfer Assistance Needed: Supervision Physical Assistance Level: 04 - Supervision or touching assistance CARE Score: 4 CARE Score Goal: 06 - Independent Section GG: Car Transfer Reason if not Attempted: Environmental limitations CARE Score: 10 Locomotion Section GG: Walk 10 Feet Assistance Needed: Supervision Physical Assistance Level: 04 - Supervision or touching assistance CARE Score: 4 Section GG: Walk 50 Feet with Two Turns Assistance Needed: Supervision Physical Assistance Level: 04 - Supervision or touching assistance CARE Score: 4 Section GG: Walk 150 Feet Assistance Needed: Supervision Physical Assistance Level: 04 - Supervision or touching assistance Reason if not Attempted: Safety concerns CARE Score: 4 Section GG: Walking 10 Feet on Uneven Surfaces Assistance Needed: Supervision Physical Assistance Level: 04 - Supervision or touching assistance CARE Score: 4 Stairs Section G Step (Curb) Assistance Needed: Supervision Physical Assistance Level: 04 - Supervision or touching assistance CARE Score: 4 Section G Steps Assistance Needed: Supervision Physical Assistance Level: 04 - Supervision or touching assistance CARE Score: 4 Section G Steps Assistance Needed: Supervision Physical Assistance Level: 04 - Supervision or touching assistance Reason if not Attempted: Medical concerns CARE Score: 4 Picking up object Section GG: Picking Up Object Assistance Needed: Supervision Physical Assistance Level: 04 - Supervision or touching assistance CARE Score: 4 PT GOALS PT Goal Review Date Most Recent Value STG Review Date 04/18/20 at 04/11/2020 1108 LTG Review Date 04/25/20 at 04/11/2020 1108 [id number] Goal Most Recent Value STG Status met at 04/14/2020 0935 STG [place] Level supervised at 04/11/2020 1108 STG Assistive Device none at 04/11/2020 1108 LTG Status met at 04/14/2020 0935 LTG [place] Level modified independent at 04/11/2020 1108 LTG Assistive Device none at 04/11/2020 1108 [id number] Goal Most Recent Value STG Status met at 04/15/2020 1345 STG [place] Level supervised at 04/11/2020 1108 STG Assistive Device none at 04/11/2020 1108 LTG Status progressing at 04/21/2020 0924 LTG [place] Level modified independent at 04/11/2020 1108 LTG Assistive Device none at 04/11/2020 1108 Gait Goal Most Recent Value STG Status met at 04/14/2020 0935 STG [place] Level stand by assist at 04/11/2020 1108 STG Assistive Device none at 04/11/2020 1108 STG Distance (feet) 300' at 04/11/2020 1108 LTG Status met at 04/20/2020 1105 LTG [place] Level supervised at 04/11/2020 1108 LTG Assistive Device none at 04/11/2020 1108 LTG Distance (feet) > 1,000' at 04/15/2020 1345 LTG Comments for community mobility at 04/15/2020 1345 Stair Goal Most Recent Value STG Status met at 04/18/2020 0923 STG [place] Level supervised at 04/11/2020 1108 STG Assistive Device 2 rails at 04/11/2020 1108 STG Number of Stairs 12 at 04/11/2020 1108 LTG Status progressing at 04/21/2020 0924 LTG [place] Level modified independent at 04/11/2020 1108 LTG Assistive Device 2 rails at 04/11/2020 1108 LTG Number of Stairs 12 at 04/11/2020 1108 Additional Goal #1 PT Most Recent Value STG Status met at 04/18/2020 0923 STG Pt will demonstrate improve DGI score to 15/24 to reduce fall risk. at 04/11/2020 1108 LTG Status progressing at 04/19/2020 1355 LTG Improve DGI score to >19/24 to reduce fall rsik. at 04/11/2020 1108 Self Care Summary: Pt is progressing towards OT goals, performing all ADLs and transfers at supervision/setup level of assist d/t L inattention, neglect and visual impairment. Pt is improving with compensatory strategies and adaptive techniques to improve function, improvi ng recall of techniques and applying them to ADLs. Anticipate pt will continue to require petit pervision upon d/c home for functional mobility and ADLs for safety d/t visual impairment an d L inattention. Recommending caregiver training with spouse to educate on pt's deficits and level of assist/cueing needed. Recommending outpatient OT. OT Equipment Recommendations: sisal operator Eating Section GG: Eating Assistance Needed: Set-up / clean-up Physical Assistance Level: 05 - Setup or cleanup assistance CARE Score: 5 Hygiene Section GG: Oral Hygiene Assistance Needed: Set-up / clean-up Physical Assistance Level: 05 - Setup or cleanup assistance CARE Score: 5 CARE Score Goal: 06 - Independent Section GG: Toileting Hygiene Assistance Needed: Set-up / clean-up Physical Assistance Level: 05 - Setup or cleanup assistance CARE Score: 5 CARE Score Goal: 06 - Independent Section GG: Shower/Bathe Self Assistance Needed: Supervision, Verbal cues, Set-up / clean-up Physical Assistance Level: 04 - Supervision or touching assistance CARE Score: 4 CARE Score Goal: 06 - Independent Dressing Section GG: Upper Body Dressing Assistance Needed: Supervision, Verbal cues Physical Assistance Level: 04 - Supervision or touching assistance CARE Score: 4 CARE Score Goal: 06 - Independent Section GG: Lower Body Dressing Assistance Needed: Supervision, Verbal cues Physical Assistance Level: 04 - Supervision or touching assistance CARE Score: 4 CARE Score Goal: 06 - Independent Section GG: Putting On/Taking Off Footwear Assistance Needed: Supervision, Verbal cues Physical Assistance Level: 04 - Supervision or touching assistance CARE Score: 4 CARE Score Goal: 06 - Independent OT Goals OT Goal Review Date Most Recent Value STG Review Date 04/18/20 at 04/11/2020 0922 LTG Review Date 04/25/20 at 04/11/2020 0922 Grooming Goal Most Recent Value STG Status met at 04/13/2020 1210 STG [place] Level supervised at 04/11/2020 0922 STG Position standing at 04/11/2020 0922 STG Adaptive Equipment none at 04/11/2020 0922 LTG Status progressing at 04/21/2020 1137 LTG [place] Level modified independent at 04/11/2020 0922 LTG Position standing at 04/11/2020 0922 LTG Adaptive Equipment none at 04/11/2020 0922 Bathing Goal Most Recent Value STG Status met [Score taken 04/16 PM tx] at 04/18/2020 1105 STG [place] Level supervised, set up required, verbal cues required at 04/11/2020 092 2 STG Adaptive Equpiment grab bars, shower head, detachable, sponge, long handled, shower ch air, shower chair with back at 04/11/2020 0922 STG Position sitting, standing at 04/11/2020 0922 LTG Status progressing at 04/19/2020 1522 LTG [place] Level modified independent at 04/11/2020 0922 LTG Adaptive Equpiment grab bars, shower head, detachable, sponge, long handled, shower ch air, shower chair with back at 04/11/2020 0922 LTG Position sitting, standing at 04/11/2020 0922 UB Dressing Goal Most Recent Value STG Status met at 04/12/2020 1158 STG [place] Level supervised, set up required, verbal cues required at 04/11/2020 092 2 STG Adaptive Equipment none at 04/11/2020 0922 LTG Status progressing at 04/21/2020 1137 LTG [place] Level modified independent at 04/11/2020 0922 LTG Adaptive Equipment none at 04/11/2020 0922 LTG Comments including clothing retrieval at 04/12/2020 1158 LB Dressing Goal Most Recent Value STG Status met [Except for TEDs, Score taken 04/16 PM tx] at 04/18/2020 1105 STG [place] Level supervised, set up required, verbal cues required at 04/11/2020 092 2 STG Adaptive Equipment sock-aid, shoe horn, long handled, sisal operator at 04/11/2020 0922 LTG Status progressing at 04/20/2020 0922 LTG [place] Level modified independent at 04/11/2020 0922 LTG Adaptive Equipment shoe horn, long handled, sock-aid, sisal operator at 04/11/2020 0922 LTG Comments including clothing retrieval at 04/12/2020 1158 Toileting Goal Most Recent Value STG Status met at 04/13/2020 1210 STG [place] Level supervised, set up required, verbal cues required at 04/11/2020 092 2 STG Assistive Device grab bar at 04/11/2020 0922 LTG Status progressing at 04/21/2020 1137 LTG [place] Level modified independent at 04/11/2020 0922 LTG Assistive Device grab bar at 04/11/2020 0922 Toilet Transfer Goal Most Recent Value STG Status met at 04/13/2020 1210 STG [place] Level supervised, set up required, verbal cues required at 04/11/2020 092 2 STG Assistive Device grab bars at 04/11/2020 0922 LTG Status progressing at 04/21/2020 1137 LTG [place] Level modified independent at 04/11/2020 0922 LTG Assistive Device grab bars at 04/11/2020 0922 Tub/Shower Transfer Goal Most Recent Value Tub/Shower Type tub/shower combo at 04/11/2020 0922 STG Status met at 04/18/2020 1105 STG [place] Level supervised, set up required, verbal cues required at 04/11/2020 092 2 STG Assistive Device grab bars, shower chair at 04/11/2020 0922 LTG Status progressing at 04/19/2020 1522 LTG [place] Level modified independent at 04/11/2020921 LTG Assistive Device grab bars, shower chair at 04/11/2020921 IADL Goal Most Recent Value STG Status not met at 04/18/2020 1105 STG Pt will be supervision vcs setup prn for meal preparation task at 04/11/2020921 LTG Status progressing at 04/17/2020 1207 LTG Pt will be Mod I for meal preparation task at 04/11/2020921 Vision Goal Most Recent Value STG Status met at 04/18/2020 1105 STG Pt will participate in eye exercises to increase ocular alignment, initiate saccadic e ye motion, increase VOR with eye focusing, and decrease diplopia as well as increase depth p erception and spatial relations to improve visual functions for ADLs, functional mobility/tf s. at 04/11/2020921 LTG Status progressing at 04/21/2020 1137 LTG Pt will report improvements to visual deficits impact on ADLs and utilize visual compe nsatory strategies indep at 04/11/2020921 Additional Goals #1 OT Most Recent Value STG Status met [Score taken 04/16 AM tx] at 04/18/2020 1105 STG Pt will participate in tasks to increase/improve LUE sensation and coordination. at 0 04/11/2020921 LTG Status progressing at 04/21/2020 1137 LTG Pt L hand fine motor coordination will be improved as evidenced by L hand performance on the 9 hole peg test in 90 seconds or less. at 04/12/2020 1158 Cognition/Communication Summary: Moderately impaired immediate and delayed memory, mildly i mpaired visuospatial skills with left visual inattention. Patient has been making progress w ith use of external systems to functionally and independently use for improved recall. See s cores below for improvements in cognitive-linguistic skills. 04/18/20 Repeatable Battery for the Assessment of Neuropsychological Status (RBANS): Efren scored a total scale score of 409 on the RBANS (see breakdown below) and a Classificat ion of Moderately impaired (70-79). This score indicates he is more than one Standard Devia tion (15) below normal limits (score 100) . Significantly improved scored in delayed memory from 48 to 75, and visuospatial skills from 64 to 81. Scores: Total Score Index Score Classification Immediate Memory 65 Severely impaired (69 and below) List Learning 20 Story Memory 10 Visuospatial/Constructional 81 Mildly impaired (80-89) Figure Copy 15 Line Orientation 16 Language 94 Average (90-109) Picture Naming 10 Semantic Fluency 19 Attention 94 Average (90-109) Digit Span 16 Coding 13 Delayed Memory 75 Moderately impaired (70-79) List Recall 5 List Recognition 16 Story Recall 7 Figure Recall 13 Sum of Index Scores: 409 Total Scale Score: 77, scoring in the 6th percentile Interpretation: Qualitative Descriptions of RBANS Index Scores Index Score Classification 130 and above Very Superior 120-129 Superior 110-119 Highly Average 90-109 Average 80-89 Low Average 70-79 Borderline 69 and below Extremely Low Dysphagia/Swallow: No skilled need in this area SAND WORKER Goals Cognition Goal Most Recent Value STG Status continued, progressing at 04/21/2020 1333 STG Pt will recall to use memory book to compensate for episodic memory impairment with m in cues from SAND WORKER in 3 consecutive sessions. at 04/15/2020 1339 Additional Goals #1 SAND WORKER Most Recent Value STG Status met at 04/14/2020 1430 STG Pt will verbally name 10 items in room from left space to target left visual neglect i ndep. at 04/12/2020 1224 LTG Status continued, progressing at 04/21/2020 1333 LTG Pt will complete functional reading tasks with 4/5 success on independent use of scann ing strateges e.g. recalling to scall all the way to left at 04/15/2020 1339 Additional Goals #2 SAND WORKER Most Recent Value STG Status continued, progressing at 04/21/2020 1333 STG Patient will use self selected compensatory strategy during structured immediate memor y tasks in 4/5 opportunities with mod cues from SAND WORKER. at 04/15/2020 1339 Additional Goals #3 SAND WORKER Most Recent Value STG Status continued, progressing at 04/21/2020 1333 STG Patient will participate in education of compensatory strategies for improved STM at 0 04/15/2020 1339 LTG Status continued, progressing at 04/21/2020 1333 LTG Patient will utilize compensatory strategies for improved recall 4/5 opportunities ove r 3 consecutive sessions and min cues at 04/12/2020 1224 Leisure/Community: Therapeutic day pass appropriate: Not needed at this time Education Caregiver training initiated: Though it has been suggested that Efren's , Susie, at tend caregiver training, due to transportation issues she is not able to travel from [facility] on to [place] to do so and training is not possible Sexuality education initiated: Not needed at this time Other education initiated (see Patient Education activity): Nothing needed at this time Recommended Discharge Equipment none, sisal operator Barriers to Discharge Barriers to Discharge: decreased functional transfers, decreased functional gait and not yet able to mobilize at level safe for home discharge Barrier Resolution Plan: Continue with therapy training, Discuss with family and MD to [facility] medications Post-Discharge Plan Setting: Efren's goal is to return to his home in [place], [place], with his , Susie, as his main caregiver support. Level of Assist Recommended for Discharge: Efren will need 24/7 supervision for the first 7 to 10 days he returns home for risk of falling and minimal assistance with ADL's, mobility, and transfers. Anticipate post discharge services: Outpatient PT and Outpatient OT Prosthetics/Orthotics therapeutic interventions recommended: na Admission Date: 04/10/2020 Projected DC Date: 04/23/20 Team Goals: 1. Mod I bed mobility 2. Mod I transfers 3. Mod I to sba gait 4. Mod I to sba toileting 5. Mod I dressing after set up Participants: MD: Dr. Wiliam Vanegas RN: ISAÍAS Agustin PT: Cherri Emerson PT, DPT; Dusty Valero PTA OT: LUISA Olvera/Gely SAND WORKER: Lenroa Delgado MA, [facility]-SAND WORKER CM/SW: Maria Guo CM Following interdisciplinary discussion and planning, I fully agree with the above. lan of Care - Lenora Delgado, Speech Pathologist - 04/21/2020 7:30 AM PDTFormatting of this note mi ght be different from the original. IRF Speech Therapy Plan of Care Treatment Note Summary: Efren has been participating in speech therapy for treatment of Moderately impair ed immediate and delayed memory, mildly impaired visuospatial skills. Emphasis of session i ncluded continued training in use of external systems to improve recall and scanning skills; specifically training in use of "Vince" application on pt's personal tablet. Patient demonst rates progress towards functional goals as evidenced by decreased cues needed for completion of creating a voice recorded vince. Remaining barriers to Cognition include comorbidities, written language abilities. SAND WORKER provided fading cues to enter in a voice vince on pt's personal tablet for functional re call of new information. Patient was able to demonstrate need for maximal cues initially, wi th minimal cues by the end of the session to add a voice vince, access a voice vince, and to e dit. Errors due to impaired scanning were intermittent with verbal reminders to scan all the way to the left side of the tablet, and to scan left to right. Efren will benefit from continued therapeutic intervention to address ongoing impairments an d increase safety and independence. Refer below for specific details regarding specifics of session and impairments. Speech Language Pathology Discharge Recommendations are: Recommended discharge disposition: home with family/caregiver Post discharge speech language pathology recommendation: continue SAND WORKER tx for cognitive-dillon guistic, outpatient therapy Planned Interventions: compensatory strategies, memory, executive function skills, reading , cognitive stimulation, other (see comments) Recommended Frequency: 5 times/wk Patient Status/Goals: Reflects last filed data and may be from multiple contributors. Swallow Recommendations Swallow Cognitive Intermittent fluctuating SAIMA, with improved SAIMA at end of session Mood/Behavior: calm, cooperative Orientation: oriented x 4 Attention: WNL/WFL Arousal Level: opens eyes spontaneously Speech: logical, clear, spontaneous Auditory Comprehension Verbal Expression Reading Writing Augmentative/Alternative Communication Voice Cognition Goal Most Recent Value STG Status continued, progressing at 04/21/2020 1333 STG Pt will recall to use memory book to compensate for episodic memory impairment with m in cues from SAND WORKER in 3 consecutive sessions. at 04/15/2020 1339 Additional Goals #1 SAND WORKER Most Recent Value STG Status met at 04/14/2020 1430 STG Pt will verbally name 10 items in room from left space to target left visual neglect i ndep. at 04/12/2020 1224 LTG Status continued, progressing at 04/21/2020 1333 LTG Pt will complete functional reading tasks with 4/5 success on independent use of scann ing strateges e.g. recalling to scall all the way to left at 04/15/2020 1339 Additional Goals #2 SAND WORKER Most Recent Value STG Status continued, progressing at 04/21/2020 1333 STG Patient will use self selected compensatory strategy during structured immediate memor y tasks in 4/5 opportunities with mod cues from SAND WORKER. at 04/15/2020 1339 Additional Goals #3 SAND WORKER Most Recent Value STG Status continued, progressing at 04/21/2020 1333 STG Patient will participate in education of compensatory strategies for improved STM at 0 04/15/2020 1339 LTG Status continued, progressing at 04/21/2020 1333 LTG Patient will utilize compensatory strategies for improved recall 4/5 opportunities ove r 3 consecutive sessions and min cues at 04/12/2020 1224 Electronically signed by: Lenora Delgado, Speech Pathologist, 04/21/2020 2:54 PMElectronic ally signed by Lenora Delgado Speech Pathologist at 04/21/2020 3:00 PM PDTPlan of Kian Hatfield RN - 04/21/2020 2:27 AM PDTGreg had a good night tonight, continues to have bouts of anxiety but calls appropriately for assistance. L sided neglect still very bo dent with L field of vision loss. Ataxia noted LUE with stroke assessment, no pronation or d rift. Complained of mild headache PRN Tylenol administered which worked well for him. Will c ontinue to monitor for any changes. Electronically signed by Kian Lemus RN at 020 2:30 AM PDTPlan of Nilam Abbott RN - 04/20/2020 6:03 PM PDTGreg required Tylenol once today for a head ache, which resolved. He was given one dose of Xanax at the [facility] time for anxiety. His muscle strength on the left is about a 5 minus vs a 5/5 on the RT, he does still have noticeable neglect on the left as well. He has no drift in the upper and lower extremities. Calazyme cream was applied to his bottom to protect it. His BT's are good and his last BM was 04/20/20 and he is voiding with some dribbling from urgency. Electronica lly signed by Nilam Ellington RN at 04/20/2020 7:11 PM PDTPlan of Dwayne Bello OT - 04/20/2020 3:16 PM PDT IRF Occupational Therapy Plan of Care Treatment Note Summary: Efren has been participating in occupational therapy for treatment of decreased s afety/capacity for indep with ADLs, IADLs, functional mobility/tfs following admission after Ischemic cerebrovascular accident (CVA) . Emphasis of session included toilet t/f, toileti ng, grooming, functional mobility and way finding, bilateral coordination/motor planning/L h and FMC/visual scanning activity with sorting cards. Patient demonstrates progress towards functional goals as evidenced by ongoing participation in therapy, improving L side attentio n, improvement in wayfinding this afternoon using visual cues. Patient was agreeable to therapy. Patient participated without adverse reaction. Patient is encouraged to ambulate into hallway with nursing staff. It is encouraged that the patient b e up in chair for all meals. Recommended toileting with nursing: Day Night toilet toilet No Assistive Device No Assistive Device supervision / set-up supervision / set-up Remaining barriers to discharge and functional limitations include decreased functional act ivity tolerance, decreased functional transfers, decreased ability to perform ADLs, decrease d ability to perform IADLs, decreased ability to perform medication management, not yet able to mobilize at level safe for home discharge, and medical status. Efren will benefit from continued therapeutic intervention to address ongoing impairments an d increase safety and independence with activities necessary for safe discharge. Refer jean-pierre valle for specific details regarding functional levels. Occupational Therapy Discharge Recommendations are: Recommended discharge disposition: home with assist Post discharge occupational therapy recommendation: home health, other (see comment), outp atient therapy Equipment Recommendations: sisal operator Planned Interventions:ADL retraining, balance training, fine motor coordination training, f unctional endurance training, motor coordination training, neuromuscular re-education, patie nt/family education, transfer training, visual/perceptual retraining, IADL retraining, bed m obility training, ROM (Range of Motion), strengthening, other (see comments)(sensory) Recommended Frequency: (rehab schedule) Patient Status/Goals: Reflects last filed data and may be from multiple contributors. ADLs Pt able to complete toileting tasks including clothing mgmt and pericare after BM without a ssist, supervision for general safety Toileting, Level of [place]: supervised Assistive Device: grab bar Toileting Assess/Train, Position: standing, sitting Toileting Impairments: impaired vision, coordination impaired, impaired functional enduranc e/activity tolerance, sensation decreased, impaired balance Pt washed his hands at the sink with supervision, no cueing requiring for attending to item s on L side Grooming, Level of [place]: supervised Assistive Device: none Grooming Assess/Train, Position: standing Grooming Impairments: coordination impaired, impaired vision, sensation decreased, impaired balance IADLs Pt stood at the bedside to fold laundry, initially quickly folding clothes in "messy" way. Pt agreeable to work on neat folding, emphasizing use of L hand, L visual scanning. Min cues to fix inside/out clothes and to match up socks correctly. Pt then put clothing away on [employer] countertop. Overall, supervision/cues. Therapeutic Activity Pt worked on bilateral coordination with emphasis on L hand FMC, hand-eye coordination, fin e motor coordination/planning, sensorimotor skills by sorting deck of cards on table top in seated position. First sorting red from black cards and placing piles of cards on L side of the table. Then, pt worked on sorting each pile of cards by pairs, using the L hand to sort through cards. Pt dropped 10 cards throughout the activity, mostly d/t L forearm sliding car ds off table. Pt stated, "I need to see where my left arm is and pick it up off the table." Pt worked on picking up cards from seated, standing, and kneeling position, the last with CG A. Pt appeared mentally fatigued towards end of session, requiring more cues for attention t o task. Functional Endurance Good for activities completed Cognitive Improving pathfinding using visual anchors, though does need prompting/cues. Able to recall activities completed this session, written in memory book. Mood/Behavior: calm, cooperative Arousal Level: opens eyes spontaneously Speech: logical, clear, spontaneous Bed Mobility NT, pt up in chair upon arrival and end of session Transfers Supervision for general safety, improved awareness of surroundings and proper hand placemen t and squaring up with chair/toilet Sit-Stand, Level of [place]: supervised Stand-Sit, Level of [place]: supervised [id number], Assistive Device: none Toilet, Level of [place]: supervised Toilet, Assistive Device: grab bars Safety Issues: balance decreased during turns, sequencing ability decreased Impairments: sensation decreased, strength decreased, postural control impaired, impaired v ision, impaired balance, coordination impaired OT Goal Review Date Most Recent Value STG Review Date 04/18/20 at 04/11/2020 0922 LTG Review Date 04/25/20 at 04/11/2020 0922 Grooming Goal Most Recent Value STG Status met at 04/13/2020 1210 STG [place] Level supervised at 04/11/2020 0922 STG Position standing at 04/11/2020 0922 STG Adaptive Equipment none at 04/11/2020 0922 LTG Status progressing at 04/20/2020 1516 LTG [place] Level modified independent at 04/11/2020 0922 LTG Position standing at 04/11/2020 0922 LTG Adaptive Equipment none at 04/11/2020 0922 Bathing Goal Most Recent Value STG Status met [Score taken 04/16 PM tx] at 04/18/2020 1105 STG [place] Level supervised, set up required, verbal cues required at 04/11/2020 092 2 STG Adaptive Equpiment grab bars, shower head, detachable, sponge, long handled, shower ch air, shower chair with back at 04/11/2020 0922 STG Position sitting, standing at 04/11/2020 09 LTG Status progressing at 04/19/2020 1522 LTG [place] Level modified independent at 04/11/2020 0922 LTG Adaptive Equpiment grab bars, shower head, detachable, sponge, long handled, shower ch air, shower chair with back at 04/11/2020 0922 LTG Position sitting, standing at 04/11/2020 0922 UB Dressing Goal Most Recent Value STG Status met at 04/12/2020 1158 STG [place] Level supervised, set up required, verbal cues required at 04/11/2020 092 2 STG Adaptive Equipment none at 04/11/2020 0922 LTG Status progressing at 04/19/2020 1522 LTG [place] Level modified independent at 04/11/2020 0922 LTG Adaptive Equipment none at 04/11/2020 0922 LTG Comments including clothing retrieval at 04/12/2020 1158 LB Dressing Goal Most Recent Value STG Status met [Except for TEDs, Score taken 04/16 PM tx] at 04/18/2020 1105 STG [place] Level supervised, set up required, verbal cues required at 04/11/2020 092 2 STG Adaptive Equipment sock-aid, shoe horn, long handled, sisal operator at 04/11/2020 0922 LTG Status progressing at 04/20/2020 0922 LTG [place] Level modified independent at 04/11/2020 0922 LTG Adaptive Equipment shoe horn, long handled, sock-aid, sisal operator at 04/11/2020 0922 LTG Comments including clothing retrieval at 04/12/2020 1158 Toileting Goal Most Recent Value STG Status met at 04/13/2020 1210 STG [place] Level supervised, set up required, verbal cues required at 04/11/2020 092 2 STG Assistive Device grab bar at 04/11/2020 0922 LTG Status progressing at 04/20/2020 1516 LTG [place] Level modified independent at 04/11/2020 0922 LTG Assistive Device grab bar at 04/11/2020 0922 Toilet Transfer Goal Most Recent Value STG Status met at 04/13/2020 1210 STG [place] Level supervised, set up required, verbal cues required at 04/11/2020 092 2 STG Assistive Device grab bars at 04/11/2020 0922 LTG Status progressing at 04/20/2020 1516 LTG [place] Level modified independent at 04/11/2020 0922 LTG Assistive Device grab bars at 04/11/2020 0922 Tub/Shower Transfer Goal Most Recent Value Tub/Shower Type tub/shower combo at 04/11/2020 0922 STG Status met at 04/18/2020 1105 STG [place] Level supervised, set up required, verbal cues required at 04/11/2020 092 2 STG Assistive Device grab bars, shower chair at 04/11/2020 0922 LTG Status progressing at 04/19/2020 1522 LTG [place] Level modified independent at 04/11/2020 0922 LTG Assistive Device grab bars, shower chair at 04/11/2020 0922 IADL Goal Most Recent Value STG Status not met at 04/18/2020 1105 STG Pt will be supervision vcs setup prn for meal preparation task at 04/11/2020 0922 LTG Status progressing at 04/17/2020 1207 LTG Pt will be Mod I for meal preparation task at 04/11/2020 0922 Vision Goal Most Recent Value STG Status met at 04/18/2020 1105 STG Pt will participate in eye exercises to increase ocular alignment, initiate saccadic e ye motion, increase VOR with eye focusing, and decrease diplopia as well as increase depth p erception and spatial relations to improve visual functions for ADLs, functional mobility/tf s. at 04/11/2020 0922 LTG Status progressing at 04/20/2020 1516 LTG Pt will report improvements to visual deficits impact on ADLs and utilize visual compe nsatory strategies indep at 04/11/2020 0922 Additional Goals #1 OT Most Recent Value STG Status met [Score taken 520 AM tx] at 04/18/2020 1105 STG Pt will participate in tasks to increase/improve LUE sensation and coordination. at 0 04/11/2020 0922 LTG Status progressing at 04/20/2020 1516 LTG Pt L hand fine motor coordination will be improved as evidenced by L hand performance on the 9 hole peg test in 90 seconds or less. at 04/12/2020 1158 Electronically signed by: Dwayne IBARRA OT, 04/20/2020 4:05 PM lan of Care - Dusty Valero, BELT CONVEYOR DRIER - 2019 2:02 PM PDT IRF Physical Therapy Plan of Care Treatment Note Summary: Efren has been participating in physical therapy for treatment of Impaired balance , gait instability, impaired vision, coordination and sensation on (L) side following CVA . 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 Emphasis of session included gt/stair training, neuro re-ed and path finding. Patient d emonstrates progress towards functional goals as evidenced by pt completed a flight of stair , demo'ing safety and controled movement throughout. RN cleared patient for participation in therapy. Patient was agreeable to therapy. Patient participated without adverse reaction. RN debriefed on therapy session and patient status. P atient is encouraged to ambulate into hallway with nursing staff. It is encouraged that the patient be up in chair for all meals. Recommended mobility with nursing: Day Night into the bathroom into the bathroom No Assistive Device No Assistive Device supervision / set-up supervision / set-up Remaining barriers to discharge and functional limitations include decreased insight into s afety and deficits, stairs at home, not yet able to mobilize at level safe for home discharg e, and medical status. Efren will benefit from continued therapeutic intervention to address ongoing impairments an d increase safety and independence with activities necessary for safe discharge. Refer jean-pierre valle for specific details regarding functional levels. Physical Therapy Discharge Recommendations are: Recommended discharge disposition: home with assist Post discharge physical therapy recommendation: outpatient therapy Equipment Recommendations: none Planned Interventions: balance training, bed mobility training, gait training, home exerci se program, patient/family education, strengthening, transfer training, stair training, chay r coordination training, neuromuscular re-education Frequency: daily(1-2x/day, IRF) Patient Status/Goals: Reflects last filed data and may be from multiple contributors. Transfers no v/c needing for transfer during PM session Sit-Stand, Level of [place]: supervised Stand-Sit, Level of [place]: supervised Tst-Zlapt-Cbc, Assistive Device: none Toilet, Level of [place]: supervised Toilet, Assistive Device: grab bars Tub, Level of [place]: not tested Safety Issues: balance decreased during turns, sequencing ability decreased Impairments: sensation decreased, strength decreased, postural control impaired, impaired v ision, impaired balance, coordination impaired Gait pt with able to demo carrying an object, tossing a small ball a few inches up and catching it and passing ball right to left following it with his head and eyes; pt had a few small st umbles, however was able to self correct and continue safely Level of [place]: verbal cues required, supervised Assistive Device: none Distance (feet): 300 Gait Pattern Analysis: 2-point gait Gait Deviations: stride width increased, ltu-hd-fvalv clearance decreased Safety Issues: balance decreased during turns Impairments: impaired balance, coordination impaired, impaired vision, motor control impair ed, postural control impaired Stairs completed full flight of stairs in stair well; pt needing increased time descending, showe d good control, pt scanned new environment and made a plan for himself before being activity Number of Stairs: 12, 24 standing rest between Handrail Location: right side (ascending) Level of [place]: supervised Assistive Device: 1 rail Technique Used: step over step (ascending), step to step (descending) Safety Issues: balance decreased during turns, weight-shifting ability decreased Impairments: impaired balance, coordination impaired, impaired vision, motor control impair ed, sensory feedback impaired Balance Sitting Balance: Static: normal balance Sitting Balance: Dynamic: normal balance Standing Balance: Static: good balance Standing Balance: Dynamic: good balance Therapeutic Exercise SciFit level 2 Hill program; pt tolerated well; improved trunk and knee alignment; total of 15 minutes Balance exercises: midline orientation, walk forward, turn 360 degrees, carry items, walk b ackwards, turn 180 degrees, sudden stops, throw, head turns, catch(Shuttle balance, set on g reen, catching/throwing ball; head and trunk turns left/right) Repetitions: total of 12 minutes Neuromuscular Reeducation: [employer] target chart; static standing, pt showed good con trol of vertical and horizontal head turns; needing increased cues/assist for diagonal patte rns Functional Endurance good for activities completed PT Goal Review Date Most Recent Value STG Review Date 04/18/20 at 04/11/2020 1108 LTG Review Date 04/25/20 at 04/11/2020 1108 Yluvkf-Fra-Lffzli Goal Most Recent Value STG Status met at 04/14/2020 0935 STG [place] Level supervised at 04/11/2020 1108 STG Assistive Device none at 04/11/2020 1108 LTG Status met at 04/14/2020 0935 LTG [place] Level modified independent at 04/11/2020 1108 LTG Assistive Device none at 04/11/2020 1108 Yvt-Ectdm-Rzr Goal Most Recent Value STG Status met at 04/15/2020 1345 STG [place] Level supervised at 04/11/2020 1108 STG Assistive Device none at 04/11/2020 1108 LTG Status progressing at 04/20/2020 1402 LTG [place] Level modified independent at 04/11/2020 1108 LTG Assistive Device none at 04/11/2020 1108 Gait Goal Most Recent Value STG Status met at 04/14/2020 0935 STG [place] Level stand by assist at 04/11/2020 1108 STG Assistive Device none at 04/11/2020 1108 STG Distance (feet) 300' at 04/11/2020 1108 LTG Status met at 04/20/2020 1105 LTG [place] Level supervised at 04/11/2020 1108 LTG Assistive Device none at 04/11/2020 1108 LTG Distance (feet) > 1,000' at 04/15/2020 1345 LTG Comments for community mobility at 04/15/2020 1345 Stair Goal Most Recent Value STG Status met at 04/18/2020 0923 STG [place] Level supervised at 04/11/2020 1108 STG Assistive Device 2 rails at 04/11/2020 1108 STG Number of Stairs 12 at 04/11/2020 1108 LTG Status progressing at 04/20/2020 1402 LTG [place] Level modified independent at 04/11/2020 1108 LTG Assistive Device 2 rails at 04/11/2020 1108 LTG Number of Stairs 12 at 04/11/2020 1108 Additional Goal #1 PT Most Recent Value STG Status met at 04/18/2020 0923 STG Pt will demonstrate improve DGI score to 15/24 to reduce fall risk. at 04/11/2020 1108 LTG Status progressing at 04/19/2020 1355 LTG Improve DGI score to >19/24 to reduce fall rsik. at 04/11/2020 1108 Electronically signed by: Dusty Valero PTA, 04/20/2020 5:45 PM lan of Care - Dusty Valero PTA - 04/20/2020 11:05 AM PDT IRF Physical Therapy Plan of Care Treatment Note Summary: Efren has been participating in physical therapy for treatment of Impaired balance , gait instability, impaired vision, coordination and sensation on (L) side following CVA . 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 Emphasis of session included neuro re-ed, path finding and functional balance static/dyn amic. Patient demonstrates progress towards functional goals as evidenced by pt showing imp roved path finding with use of visual anchors. RN cleared patient for participation in therapy. Patient was agreeable to therapy. Patient participated without adverse reaction. RN debriefed on therapy session and patient status. P atient is encouraged to ambulate into hallway with nursing staff. It is encouraged that the patient be up in chair for all meals. Recommended mobility with nursing: Day Night into the bathroom into the bathroom No Assistive Device No Assistive Device supervision / set-up supervision / set-up Remaining barriers to discharge and functional limitations include decreased insight into s afety and deficits, decreased gait velocity, stairs at home, not yet able to mobilize at [facility] el safe for home discharge, and medical status. Efren will benefit from continued therapeutic intervention to address ongoing impairments an d increase safety and independence with activities necessary for safe discharge. Refer jean-pierre valle for specific details regarding functional levels. Physical Therapy Discharge Recommendations are: Recommended discharge disposition: home with assist Post discharge physical therapy recommendation: outpatient therapy Equipment Recommendations: none Planned Interventions: balance training, bed mobility training, gait training, home exerci se program, patient/family education, strengthening, transfer training, stair training, chay r coordination training, neuromuscular re-education Frequency: daily(1-2x/day, IRF) Patient Status/Goals: Reflects last filed data and may be from multiple contributors. Bed Mobility con't to demo Mod I Assistive Device: none Roll Left, Level of [place]: modified independent Roll Right, Level of [place]: modified independent Scoot/Bridge, Level of [place]: modified independent Supine to Sit, Level of [place]: modified independent Sit to Supine, Level of [place]: modified independent Impairments: impaired vision Transfers pt with good hand placement and controled [id number] Bed-Chair, Level of [place]: supervised, verbal cues required Chair-Bed, Level of [place]: supervised, verbal cues required Dhf-[id number], Assistive Device: none Sit-Stand, Level of [place]: supervised Stand-Sit, Level of [place]: supervised Svx-Svdes-Iyo, Assistive Device: none Toilet, Level of [place]: supervised Toilet, Assistive Device: grab bars Safety Issues: balance decreased during turns, sequencing ability decreased Impairments: sensation decreased, strength decreased, postural control impaired, impaired v ision, impaired balance, coordination impaired Gait noted pt has SRINIVAS was not as wide today without a decrease in balance; intermittent cues to attend to left side; emproved overall environmental awareness Level of [place]: verbal cues required, supervised Assistive Device: none Distance (feet): 1200 Gait Pattern Analysis: 2-point gait Gait Deviations: stride width increased, een-dk-lfgel clearance decreased Safety Issues: balance decreased during turns Impairments: impaired balance, coordination impaired, impaired vision, motor control impair ed, postural control impaired Balance Sitting Balance: Static: normal balance Sitting Balance: Dynamic: normal balance Standing Balance: Static: good balance Standing Balance: Dynamic: good balance Therapeutic Exercise Balance exercises: walk forward, walk backwards, turn 180 degrees, turn 360 degrees, carry items, step over obstacles, avoid obstacles, sudden stops, head turns, speed walk Repetitions: total of 12 min Neuromuscular Reeducation: quadriped work on mat; pt able to alternate arms without physica l assist; needing min assist for alignment and lifting/alternating LE's Functional Endurance good for activities completed; pt very driven PT Goal Review Date Most Recent Value STG Review Date 04/18/20 at 04/11/2020 1108 LTG Review Date 04/25/20 at 04/11/2020 1108 Bumdew-Jkf-Xfzabi Goal Most Recent Value STG Status met at 04/14/2020 0935 STG [place] Level supervised at 04/11/2020 1108 STG Assistive Device none at 04/11/2020 1108 LTG Status met at 04/14/2020 0935 LTG [place] Level modified independent at 04/11/2020 1108 LTG Assistive Device none at 04/11/2020 1108 Olu-Hvcrt-Nce Goal Most Recent Value STG Status met at 04/15/2020 1345 STG [place] Level supervised at 04/11/2020 1108 STG Assistive Device none at 04/11/2020 1108 LTG Status progressing at 04/20/2020 1105 LTG [place] Level modified independent at 04/11/2020 1108 LTG Assistive Device none at 04/11/2020 1108 Gait Goal Most Recent Value STG Status met at 04/14/2020 0935 STG [place] Level stand by assist at 04/11/2020 1108 STG Assistive Device none at 04/11/2020 1108 STG Distance (feet) 300' at 04/11/2020 1108 LTG Status met at 04/20/2020 1105 LTG [place] Level supervised at 04/11/2020 1108 LTG Assistive Device none at 04/11/2020 1108 LTG Distance (feet) > 1,000' at 04/15/2020 1345 LTG Comments for community mobility at 04/15/2020 1345 Stair Goal Most Recent Value STG Status met at 04/18/2020 0923 STG [place] Level supervised at 04/11/2020 1108 STG Assistive Device 2 rails at 04/11/2020 1108 STG Number of Stairs 12 at 04/11/2020 1108 LTG Status progressing at 04/19/2020 1355 LTG [place] Level modified independent at 04/11/2020 1108 LTG Assistive Device 2 rails at 04/11/2020 1108 LTG Number of Stairs 12 at 04/11/2020 1108 Additional Goal #1 PT Most Recent Value STG Status met at 04/18/2020 0923 STG Pt will demonstrate improve DGI score to 15/24 to reduce fall risk. at 04/11/2020 1108 LTG Status progressing at 04/19/2020 1355 LTG Improve DGI score to >19/24 to reduce fall rsik. at 04/11/2020 1108 Electronically signed by: Dusty Valero PTA, 04/20/2020 4:57 PM lan of Care - Dwayne Ibarra, OT - 0 04/20/2020 9:22 AM PDT IRF Occupational Therapy Plan of Care Treatment Note Summary: Efren has been participating in occupational therapy for treatment of decreased s afety/capacity for indep with ADLs, IADLs, functional mobility/tfs following admission after Ischemic cerebrovascular accident (CVA) . Emphasis of session included toileting, grooming , functional mobility and transfers, way finding, IADL laundry activity. Patient demonstrat es progress towards functional goals as evidenced by improved recall with visual cues/anchor s for wayfinding, decreased cues for ADL tasks, improving safety awareness. Patient was agreeable to therapy. Patient participated without adverse reaction. Patient is encouraged to ambulate into hallway with nursing staff. It is encouraged that the patient b e up in chair for all meals. Recommended toileting with nursing: Day Night toilet toilet No Assistive Device No Assistive Device supervision / set-up supervision / set-up Remaining barriers to discharge and functional limitations include decreased insight into s afety and deficits, decreased bed mobility, decreased functional transfers, decreased abilit y to perform ADLs, decreased ability to perform IADLs, decreased ability to perform medicati on management, not yet able to mobilize at level safe for home discharge, and medical status . Efren will benefit from continued therapeutic intervention to address ongoing impairments an d increase safety and independence with activities necessary for safe discharge. Refer jean-pierre valle for specific details regarding functional levels. Occupational Therapy Discharge Recommendations are: Recommended discharge disposition: home with assist Post discharge occupational therapy recommendation: home health, other (see comment), outp atient therapy Equipment Recommendations: sisal operator Planned Interventions:ADL retraining, balance training, fine motor coordination training, f unctional endurance training, motor coordination training, neuromuscular re-education, patie nt/family education, transfer training, visual/perceptual retraining, IADL retraining, bed m obility training, ROM (Range of Motion), strengthening, other (see comments)(sensory) Recommended Frequency: (rehab schedule) Patient Status/Goals: Reflects last filed data and may be from multiple contributors. ADLs Pt doffed hospital socks and donned shoes, including tying laces without assist or foot sto ol. Pt inquired about elastic laces for ease, though encouraged pt to continue to work on fi ne motor skills when tying laces. LB Dressing, Level of [place]: supervised, verbal cues required Assistive Device: none LB Dressing Assess/Train, Position: sitting LB Dressing Impairments: impaired vision, decreased flexibility, coordination impaired, mot or control impaired, sensation decreased, impaired functional endurance/activity tolerance, impaired balance, ROM decreased Standing void, supervision for general safety, no LOB or physical assist. Toileting, Level of [place]: supervised Assistive Device: none Toileting Assess/Train, Position: standing Toileting Impairments: impaired vision, coordination impaired, impaired functional enduranc e/activity tolerance, sensation decreased, impaired balance Pt stood at the sink to shave with electric razor, comb his hair, and wash his hands. Impro cinda awareness to the L side, no cueing required. Grooming, Level of [place]: supervised Assistive Device: none Grooming Assess/Train, Position: standing Grooming Impairments: coordination impaired, impaired vision, sensation decreased, impaired balance IADLs Pt agreeable to work on gathering dirty laundry in a bag, retrieved clothes from all around the room, needed min cues to scan room, especially to the L side. Encouraged pt to set bag down when putting clothes in the bag, also holding bag with L hand to work on coordination/s trengthening. Pt ambulated to the laundry room with cues for wayfinding. Pt loaded washer, p oured detergent without losing surveying teacher, improved safety awareness by setting detergent down on the washer when pouring for more stability. Pt able to operate washer with min cues. Overall , completing activities with supervision/cues. Laundry Training, OT Eval Level Of [place]: Laundry: supervised Physical Assist/Nonphysical Assist: Laundry: verbal cues Assistive Device: none Functional Endurance Good for activities completed Cognitive Spent extensive time working on wayfinding, using visual anchors/cues and repetition for ne uro re-education. Pt able to independently locate visual anchor outside room to locate inter section in hallway leading to the gym on the right and family room on the left. Pt is able t o locate gym without assist, though has difficulty recalling what room is on the left side, and what activities pt has completed there. Pt given cue to recall "left is for laundry room " and pt was able to recall immediately after x3 times. Though has more difficulty recalling that he has worked on the vision board and had a shower in the tub/shower room there. Larry fernández, pt has improved with practicing wayfinding approx 6 times, retracing steps to/from pt's r oom. Pt able to recall 75% of activities completed this session, written in memory book. Mood/Behavior: calm, cooperative Arousal Level: opens eyes spontaneously Speech: logical, clear, spontaneous Bed Mobility NT, pt up in chair upon arrival, returned to chair at end of session Transfers Supervision, min cues for proper stand>sit, for controlled sit and squaring up with the lisa ir. No LOB for standing void at toilet, able to manage toilet seat without assist. Sit-Stand, Level of [place]: supervised Stand-Sit, Level of [place]: supervised, verbal cues required [id number], Assistive Device: none Toilet, Level of [place]: supervised(standing void) Toilet, Assistive Device: none Safety Issues: balance decreased during turns, sequencing ability decreased Impairments: sensation decreased, strength decreased, postural control impaired, impaired v ision, impaired balance, coordination impaired OT Goal Review Date Most Recent Value STG Review Date 04/18/20 at 04/11/2020 0922 LTG Review Date 04/25/20 at 04/11/2020 0922 Grooming Goal Most Recent Value STG Status met at 04/13/2020 1210 STG [place] Level supervised at 04/11/2020 0922 STG Position standing at 04/11/2020 0922 STG Adaptive Equipment none at 04/11/2020 0922 LTG Status progressing at 04/20/2020 0922 LTG [place] Level modified independent at 04/11/2020 0922 LTG Position standing at 04/11/2020 0922 LTG Adaptive Equipment none at 04/11/2020 0922 Bathing Goal Most Recent Value STG Status met [Score taken 04/16 PM tx] at 04/18/2020 1105 STG [place] Level supervised, set up required, verbal cues required at 04/11/2020 092 2 STG Adaptive Equpiment grab bars, shower head, detachable, sponge, long handled, shower ch air, shower chair with back at 04/11/2020 0922 STG Position sitting, standing at 04/11/2020 0922 LTG Status progressing at 04/19/2020 1522 LTG [place] Level modified independent at 04/11/2020 0922 LTG Adaptive Equpiment grab bars, shower head, detachable, sponge, long handled, shower ch air, shower chair with back at 04/11/2020 0922 LTG Position sitting, standing at 04/11/2020 0922 UB Dressing Goal Most Recent Value STG Status met at 04/12/2020 1158 STG [place] Level supervised, set up required, verbal cues required at 04/11/2020 092 2 STG Adaptive Equipment none at 04/11/2020 0922 LTG Status progressing at 04/19/2020 1522 LTG [place] Level modified independent at 04/11/2020 0922 LTG Adaptive Equipment none at 04/11/2020 0922 LTG Comments including clothing retrieval at 04/12/2020 1158 LB Dressing Goal Most Recent Value STG Status met [Except for TEDs, Score taken 520 PM tx] at 04/18/2020 1105 STG [place] Level supervised, set up required, verbal cues required at 04/11/2020 092 2 STG Adaptive Equipment sock-aid, shoe horn, long handled, sisal operator at 04/11/2020 0922 LTG Status progressing at 04/20/2020 0922 LTG [place] Level modified independent at 04/11/2020 0922 LTG Adaptive Equipment shoe horn, long handled, sock-aid, sisal operator at 04/11/2020 0922 LTG Comments including clothing retrieval at 04/12/2020 1158 Toileting Goal Most Recent Value STG Status met at 04/13/2020 1210 STG [place] Level supervised, set up required, verbal cues required at 04/11/2020 092 2 STG Assistive Device grab bar at 04/11/2020 0922 LTG Status progressing at 04/20/2020 0922 LTG [place] Level modified independent at 04/11/2020 0922 LTG Assistive Device grab bar at 04/11/2020 0922 Toilet Transfer Goal Most Recent Value STG Status met at 04/13/2020 1210 STG [place] Level supervised, set up required, verbal cues required at 04/11/2020 092 2 STG Assistive Device grab bars at 04/11/2020 0922 LTG Status progressing at 04/20/2020 0922 LTG [place] Level modified independent at 04/11/2020 0922 LTG Assistive Device grab bars at 04/11/2020 09 Tub/Shower Transfer Goal Most Recent Value Tub/Shower Type tub/shower combo at 04/11/2020921 STG Status met at 04/18/2020 1105 STG [place] Level supervised, set up required, verbal cues required at 04/11/2020 092 2 STG Assistive Device grab bars, shower chair at 04/11/2020921 LTG Status progressing at 04/19/2020 1522 LTG [place] Level modified independent at 04/11/2020921 LTG Assistive Device grab bars, shower chair at 04/11/2020921 IADL Goal Most Recent Value STG Status not met at 04/18/2020 1105 STG Pt will be supervision vcs setup prn for meal preparation task at 04/11/2020921 LTG Status progressing at 04/17/2020 1207 LTG Pt will be Mod I for meal preparation task at 04/11/2020921 Vision Goal Most Recent Value STG Status met at 04/18/2020 1105 STG Pt will participate in eye exercises to increase ocular alignment, initiate saccadic e ye motion, increase VOR with eye focusing, and decrease diplopia as well as increase depth p erception and spatial relations to improve visual functions for ADLs, functional mobility/tf s. at 04/11/2020921 LTG Status progressing at 04/20/2020 0922 LTG Pt will report improvements to visual deficits impact on ADLs and utilize visual compe nsatory strategies indep at 04/11/2020921 Additional Goals #1 OT Most Recent Value STG Status met [Score taken 5/20 AM tx] at 04/18/2020 1105 STG Pt will participate in tasks to increase/improve LUE sensation and coordination. at 0 04/11/2020921 LTG Status revised, new at 04/12/2020 1158 LTG Pt L hand fine motor coordination will be improved as evidenced by L hand performance on the 9 hole peg test in 90 seconds or less. at 04/12/2020 1158 Electronically signed by: Dwayne IBARRA OT, 04/20/2020 9:41 AM lan of Ela Smith RN - 04/20/2020 1:2 6 AM PDTGreg A&O x4. Forgetful at times. Hx traumatic brain injury. His muscle strength on t he left slightly less the the right. He has no drift in the upper and lower extremities. kimani azyme to buttocks-redness. Last BM was 04/17. No falls this shift lan of Nilam Abbott RN - 04/19/2020 6:5 8 PM PDTGreg had a headache which was controlled with Tylenol. He was given one dose of Xana x at the same time for anxiety. His muscle strength on the left was only slightly less the t he right, he does still have noticeable neglect on the left as well. He has no drift in the upper and lower extremities. The foam was dressing on his coccyx was removed, there was no r edness or skin breakdown, calazyme was applied by OFFICE SERVICES ASSISTANT. His BT's are good and his last BM was 04/17 and he is voiding with some dribbling from urgency. lan of Dwayne Bello OT - 04/19/2020 3:22 PM PDT IRF Occupational Therapy Plan of Care Treatment Note Summary: Efren has been participating in occupational therapy for treatment of decreased s afety/capacity for indep with ADLs, IADLs, functional mobility/tfs following admission after Ischemic cerebrovascular accident (CVA) . Emphasis of session included shower, UB/LB dress ing including clothing retrieval and setup in bathroom, functional mobility and transfers. Patient demonstrates progress towards functional goals as evidenced by ongoing participation in therapy, receptive to education for safety during ADL routine. Patient was agreeable to therapy. Patient participated without adverse reaction. Patient is encouraged to ambulate into hallway with nursing staff. It is encouraged that the patient b e up in chair for all meals. Recommended toileting with nursing: Day Night toilet toilet No Assistive Device No Assistive Device stand by assistance stand by assistance Remaining barriers to discharge and functional limitations include decreased functional act ivity tolerance, decreased functional transfers, decreased ability to perform ADLs, decrease d ability to perform IADLs, not yet able to mobilize at level safe for home discharge, and m edical status. Efren will benefit from continued therapeutic intervention to address ongoing impairments an d increase safety and independence with activities necessary for safe discharge. Refer jean-pierre valle for specific details regarding functional levels. Occupational Therapy Discharge Recommendations are: Recommended discharge disposition: home with assist Post discharge occupational therapy recommendation: home health, other (see comment), outp atient therapy Equipment Recommendations: sisal operator Planned Interventions:ADL retraining, balance training, fine motor coordination training, f unctional endurance training, motor coordination training, neuromuscular re-education, patie nt/family education, transfer training, visual/perceptual retraining, IADL retraining, bed m obility training, ROM (Range of Motion), strengthening, other (see comments)(sensory) Recommended Frequency: (rehab schedule) Patient Status/Goals: Reflects last filed data and may be from multiple contributors. ADLs Pt agreeable to shower, UB/LB dressing this afternoon. Pt also worked on clothing retrieval as well as grooming items, and carrying items to/from shower room pt dropped clothing x3 du ring session, requiring CGA/cues for safe technique to hand picker items off floor. Showered in tub/shower, seated on shower chair, standing with support through grab bar thou gh needed cues for attending to L grab bar. Pt able to wash all areas of the body without as sist, SBA provided for general safety during standing portions. Bathing, Level of [place]: stand by assist, verbal cues required, set up required Assistive Device: grab bars, hand-held shower head, shower chair without back Bathing Assess/Train, Position: sitting, standing Bathing Impairments: decreased flexibility, sensation decreased, strength decreased, impair ed balance, impaired vision, impaired functional endurance/activity tolerance, motor control impaired Pt doffed/donned shirt seated outside the shower, supervision UB Dressing, Level of [place]: supervised Assistive Device: none UB Dressing Assess/Train, Position: sitting UB Dressing Impairments: sensation decreased, impaired vision, coordination impaired, impai red cognition, motor control impaired Pt doffed/donned clothing outside shower, seated on chair, standing with support through gr ab bar. Pt required cues to sit down to doff clothing past feet. Cues to distinguish front/b ack for pants. Pt able to doff TEDs with extra time/effort, donned TEDs with mod A to get ov er feet, then pt able to pull up. Pt able to doff/don shoes and manage laces without a foot stool, improving. LB Dressing, Level of [place]: supervised, verbal cues required(min A for TEDs) Assistive Device: none LB Dressing Assess/Train, Position: sitting, standing LB Dressing Impairments: impaired vision, decreased flexibility, coordination impaired, mot or control impaired, sensation decreased, impaired functional endurance/activity tolerance, impaired balance, ROM decreased Functional Endurance Good for activities completed Cognitive Increased cueing for general safety, wayfinding, techniques this afternoon, possibly d/t fa tigue and c/o headache, difficulty focusing. Wayfinding difficult, needing prompts/cues. Mood/Behavior: calm, cooperative Arousal Level: opens eyes spontaneously Speech: logical, clear, spontaneous Bed Mobility NT, pt up in chair upon arrival and end of session Transfers Supervision for sit<>stand from chair without cues for safety techniques and proper hand pl acement. SBA/cues required for tub t/f, stepping in/out safely, using grab bars for steadyin g, cues to attend to L side for proper hand placement. Sit-Stand, Level of [place]: supervised Stand-Sit, Level of [place]: supervised [id number], Assistive Device: none Tub, Level of [place]: stand by assist, verbal cues required Tub, Assistive Device: grab bars, shower chair Safety Issues: balance decreased during turns, sequencing ability decreased Impairments: sensation decreased, strength decreased, postural control impaired, impaired v ision, impaired balance, coordination impaired OT Goal Review Date Most Recent Value STG Review Date 04/18/20 at 04/11/2020 0922 LTG Review Date 04/25/20 at 04/11/2020 0922 Grooming Goal Most Recent Value STG Status met at 04/13/2020 1210 STG [place] Level supervised at 04/11/2020 0922 STG Position standing at 04/11/2020 0922 STG Adaptive Equipment none at 04/11/2020 0922 LTG Status progressing at 04/19/2020 1115 LTG [place] Level modified independent at 04/11/2020 0922 LTG Position standing at 04/11/2020 0922 LTG Adaptive Equipment none at 04/11/2020 0922 Bathing Goal Most Recent Value STG Status met [Score taken 04/16 PM tx] at 04/18/2020 1105 STG [place] Level supervised, set up required, verbal cues required at 04/11/2020 092 2 STG Adaptive Equpiment grab bars, shower head, detachable, sponge, long handled, shower ch air, shower chair with back at 04/11/2020 0922 STG Position sitting, standing at 04/11/2020 0922 LTG Status progressing at 04/19/2020 1522 LTG [place] Level modified independent at 04/11/2020 0922 LTG Adaptive Equpiment grab bars, shower head, detachable, sponge, long handled, shower ch air, shower chair with back at 04/11/2020 0922 LTG Position sitting, standing at 04/11/2020 0922 UB Dressing Goal Most Recent Value STG Status met at 04/12/2020 1158 STG [place] Level supervised, set up required, verbal cues required at 04/11/2020 092 2 STG Adaptive Equipment none at 04/11/2020 0922 LTG Status progressing at 04/19/2020 1522 LTG [place] Level modified independent at 04/11/2020 0922 LTG Adaptive Equipment none at 04/11/2020 0922 LTG Comments including clothing retrieval at 04/12/2020 1158 LB Dressing Goal Most Recent Value STG Status met [Except for TEDs, Score taken 04/16 PM tx] at 04/18/2020 1105 STG [place] Level supervised, set up required, verbal cues required at 04/11/2020 092 2 STG Adaptive Equipment sock-aid, shoe horn, long handled, sisal operator at 04/11/2020 0922 LTG Status progressing at 04/19/2020 1522 LTG [place] Level modified independent at 04/11/2020 0922 LTG Adaptive Equipment shoe horn, long handled, sock-aid, sisal operator at 04/11/2020 0922 LTG Comments including clothing retrieval at 04/12/2020 1158 Toileting Goal Most Recent Value STG Status met at 04/13/2020 1210 STG [place] Level supervised, set up required, verbal cues required at 04/11/2020 092 2 STG Assistive Device grab bar at 04/11/2020 0922 LTG Status progressing at 04/19/2020 1115 LTG [place] Level modified independent at 04/11/2020 0922 LTG Assistive Device grab bar at 04/11/2020 0922 Toilet Transfer Goal Most Recent Value STG Status met at 04/13/2020 1210 STG [place] Level supervised, set up required, verbal cues required at 04/11/2020 092 2 STG Assistive Device grab bars at 04/11/2020 0922 LTG Status progressing at 04/15/2020 0830 LTG [place] Level modified independent at 04/11/2020 0922 LTG Assistive Device grab bars at 04/11/2020 0922 Tub/Shower Transfer Goal Most Recent Value Tub/Shower Type tub/shower combo at 04/11/2020 0922 STG Status met at 04/18/2020 1105 STG [place] Level supervised, set up required, verbal cues required at 04/11/2020 092 2 STG Assistive Device grab bars, shower chair at 04/11/2020 0922 LTG Status progressing at 04/19/2020 1522 LTG [place] Level modified independent at 04/11/2020 0922 LTG Assistive Device grab bars, shower chair at 04/11/2020 0922 IADL Goal Most Recent Value STG Status not met at 04/18/2020 1105 STG Pt will be supervision vcs setup prn for meal preparation task at 04/11/2020 0922 LTG Status progressing at 04/17/2020 1207 LTG Pt will be Mod I for meal preparation task at 04/11/2020 0922 Vision Goal Most Recent Value STG Status met at 04/18/2020 1105 STG Pt will participate in eye exercises to increase ocular alignment, initiate saccadic e ye motion, increase VOR with eye focusing, and decrease diplopia as well as increase depth p erception and spatial relations to improve visual functions for ADLs, functional mobility/tf s. at 04/11/2020 0922 LTG Status progressing at 04/19/2020 1115 LTG Pt will report improvements to visual deficits impact on ADLs and utilize visual compe nsatory strategies indep at 04/11/2020 0922 Additional Goals #1 OT Most Recent Value STG Status met [Score taken 5/20 AM tx] at 04/18/2020 1105 STG Pt will participate in tasks to increase/improve LUE sensation and coordination. at 0 04/11/2020 0922 LTG Status revised, new at 04/12/2020 1158 LTG Pt L hand fine motor coordination will be improved as evidenced by L hand performance on the 9 hole peg test in 90 seconds or less. at 04/12/2020 1158 Electronically signed by: Dwayne IBARRA OT, 04/19/2020 5:21 PM lan of Care - Marylu, Dusty Levin, [employer] - 2019 1:55 PM PDT Physical Therapy Plan of Care Treatment Note Summary: Efren has been participating in physical therapy for treatment of Impaired balance , gait instability, impaired vision, coordination and sensation on (L) side following CVA . 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 Emphasis of session included DGI and neuro re-ed. Patient demonstrates progress towards functional goals as evidenced by pt scored a 20/24 for the DGI, however pt needs to show co nsistency and safety. RN cleared patient for participation in therapy. Patient was agreeable to therapy. Patient participated without adverse reaction. RN debriefed on therapy session and patient status. P atient is encouraged to ambulate into hallway with nursing staff. It is encouraged that the patient be up in chair for all meals. Recommended mobility with nursing: Day Night into the bathroom into the bathroom No Assistive Device No Assistive Device supervision / set-up supervision / set-up Remaining barriers to discharge and functional limitations include decreased insight into s afety and deficits, decreased gait velocity, stairs at home, not yet able to mobilize at lev el safe for home discharge, and medical status. Efren will benefit from continued therapeutic intervention to address ongoing impairments an d increase safety and independence with activities necessary for safe discharge. Refer jean-pierre valle for specific details regarding functional levels. Physical Therapy Discharge Recommendations are: Recommended discharge disposition: home with assist Post discharge physical therapy recommendation: outpatient therapy Equipment Recommendations: none Planned Interventions: balance training, bed mobility training, gait training, home exerci se program, patient/family education, strengthening, transfer training, stair training, chay r coordination training, neuromuscular re-education Recommended Frequency: daily(1-2x/day, IRF) Patient Status/Goals: Reflects last filed data and may be from multiple contributors. Gait pt showed improved balance with vertical head motions while walking, continues to struggle with horizontal head turns Level of [place]: verbal cues required, stand by assist Assistive Device: none Distance (feet): 580 Gait Deviations: stride width increased, [id number] clearance decreased Safety Issues: balance decreased during turns Impairments: impaired balance, coordination impaired, impaired vision, motor control impair ed, postural control impaired Stairs completed stair training with single rail; noted pt switching between [id number] and step -over-step method Number of Stairs: 12 Handrail Location: right side (ascending) Level of [place]: supervised Assistive Device: 1 rail Technique Used: step over step (ascending), step over step (descending), step to step (asce nding), step to step (descending) Safety Issues: balance decreased during turns, weight-shifting ability decreased Impairments: impaired balance, coordination impaired, impaired vision, motor control impair ed, sensory feedback impaired Transfers pt used the technique of talking through the steps out loud to assist with carryover and co nsistancy; intermittent cues for safety and sequenicng Bed-Chair, Level of [place]: supervised, verbal cues required Chair-Bed, Level of [place]: supervised, verbal cues required [id number], Assistive Device: none Sit-Stand, Level of [place]: supervised Stand-Sit, Level of [place]: supervised [id number], Assistive Device: none Toilet, Level of [place]: supervised(standing void) Toilet, Assistive Device: grab bars Safety Issues: balance decreased during turns, sequencing ability decreased Impairments: sensation decreased, strength decreased, postural control impaired, impaired v ision, impaired balance, coordination impaired Bed Mobility pt demo'd safety and consistancy with bed mobility; pt only using bed rail for rolling comp letely onto right side Assistive Device: bed rails Roll Left, Level of [place]: modified independent Roll Right, Level of [place]: modified independent Scoot/Bridge, Level of [place]: modified independent Supine to Sit, Level of [place]: modified independent Sit to Supine, Level of [place]: modified independent Impairments: impaired vision Balance Sitting Balance: Static: normal balance Sitting Balance: Dynamic: normal balance Standing Balance: Static: good balance Standing Balance: Dynamic: good balance Therapeutic Exercise Scifit level 1.0 hill program; emphasis on pacing, knee and trunk alignment, total of 15 mi nutes Balance exercises: walk forward, walk backwards, turn 180 degrees, turn 360 degrees, carry items, step over obstacles, avoid obstacles, sudden stops, head turns, speed walk Repetitions: total of 18 minutes Functional Endurance Good for activities completed Dynamic Gait Index: Efren scored 20/24 on the Dynamic Gait Index (with no assistive device), indicating he is a moderate fall risk. Gait Level Surface: 3 - Normal: walk 20' no assistive devices, good speed, no evidence of i mbalance, normal gait pattern Change in Gait Speed: 2 - Mild impairment: is able to change speeds but demonstrates mild g ait deviation or not gait deviation but unable to achieve a significant change in velocity o r uses assistive device. Horizontal Head Turns: 2 - Mild impairment: performs head turns smoothly with slight change in gait velocity, ie: minor disruption to smooth gait or uses walking aid Vertical Head Turns: 3 - Normal: performs head turns smoothly with no change in gait Gait Pivot Turn: 2 - Mild impairment: Pivot turn safely in > 3 seconds and stops with no lo ss of balance Step over Obstacle: 3 - Normal: is able to step over the box without changing gait speed, n o evidence of imbalance Step around Obstacle: 3 - Normal: is able to walk around both cones without changing gait s peed, no evidence of imbalance Steps: 2 - Mild impairment: alternating feet, must use rail Total score: 20 Fall Risk: 19-22 - moderate fall risk Note: w/o AD Interpretation: - Predicts fall risk <19 = [...] of falling For more information, please visit: [email or web address] PT Goal Review Date Most Recent Value STG Review Date 04/18/20 at 04/11/2020 1108 LTG Review Date 04/25/20 at 04/11/2020 1108 [id number] Goal Most Recent Value STG Status met at 04/14/2020 0935 STG [place] Level supervised at 04/11/2020 1108 STG Assistive Device none at 04/11/2020 1108 LTG Status met at 04/14/2020 0935 LTG [place] Level modified independent at 04/11/2020 1108 LTG Assistive Device none at 04/11/2020 1108 Sli-[id number] Goal Most Recent Value STG Status met at 04/15/2020 1345 STG [place] Level supervised at 04/11/2020 1108 STG Assistive Device none at 04/11/2020 1108 LTG Status progressing at 04/19/2020 1355 LTG [place] Level modified independent at 04/11/2020 1108 LTG Assistive Device none at 04/11/2020 1108 Gait Goal Most Recent Value STG Status met at 04/14/2020 0935 STG [place] Level stand by assist at 04/11/2020 1108 STG Assistive Device none at 04/11/2020 1108 STG Distance (feet) 300' at 04/11/2020 1108 LTG Status progressing at 04/19/2020 1355 LTG [place] Level supervised at 04/11/2020 1108 LTG Assistive Device none at 04/11/2020 1108 LTG Distance (feet) > 1,000' at 04/15/2020 1345 LTG Comments for community mobility at 04/15/2020 1345 Stair Goal Most Recent Value STG Status met at 04/18/2020 0923 STG [place] Level supervised at 04/11/2020 1108 STG Assistive Device 2 rails at 04/11/2020 1108 STG Number of Stairs 12 at 04/11/2020 1108 LTG Status progressing at 04/19/2020 1355 LTG [place] Level modified independent at 04/11/2020 1108 LTG Assistive Device 2 rails at 04/11/2020 1108 LTG Number of Stairs 12 at 04/11/2020 1108 Additional Goal #1 PT Most Recent Value STG Status met at 04/18/2020 0923 STG Pt will demonstrate improve DGI score to 15/24 to reduce fall risk. at 04/11/2020 1108 LTG Status progressing at 04/19/2020 1355 LTG Improve DGI score to >19/24 to reduce fall rsik. at 04/11/2020 1108 PT Time Calculation Individual Start Time: 1302 Individual Stop Time: 1355 Individual Total Time: 53 Missed Treatment Time: 0 PT Total Treatment Time: 53 Timed TX Code Minutes: 53 Electronically signed by: Dusty Valero PTA, 04/19/2020 6:15 PM lan of Care - Dwayne Ibarra, OT - 0 04/19/2020 11:15 AM PDT IRF Occupational Therapy Plan of Care Treatment Note Summary: Efren has been participating in occupational therapy for treatment of decreased s afety/capacity for indep with ADLs, IADLs, functional mobility/tfs following admission after Ischemic cerebrovascular accident (CVA) . Emphasis of session included oculomotor, dynamic balance, L side attention activities to promote function in daily activities, IADL housekee ping tasks, toileting, grooming. Patient demonstrates progress towards functional goals as evidenced by good participation in therapy. Patient was agreeable to therapy. Patient participated without adverse reaction. Patient is encouraged to ambulate into hallway with nursing staff. It is encouraged that the patient b e up in chair for all meals. Recommended toileting with nursing: Day Night toilet toilet No Assistive Device No Assistive Device stand by assistance stand by assistance Remaining barriers to discharge and functional limitations include decreased functional act ivity tolerance, decreased functional transfers, decreased ability to perform ADLs, decrease d ability to perform IADLs, not yet able to mobilize at level safe for home discharge and me dical status. Efren will benefit from continued therapeutic intervention to address ongoing impairments an d increase safety and independence with activities necessary for safe discharge. Refer jean-pierre valle for specific details regarding functional levels. Occupational Therapy Discharge Recommendations are: Recommended discharge disposition: home with assist Post discharge occupational therapy recommendation: home health, other (see comment), outp atient therapy Equipment Recommendations: sisal operator Planned Interventions:ADL retraining, balance training, fine motor coordination training, f unctional endurance training, motor coordination training, neuromuscular re-education, patie nt/family education, transfer training, visual/perceptual retraining, IADL retraining, bed m obility training, ROM (Range of Motion), strengthening, other (see comments)(sensory) Recommended Frequency: (rehab schedule) Patient Status/Goals: Reflects last filed data and may be from multiple contributors. ADLs Pt requested to shower in afternoon. Completed toileting/grooming prior to further activiti es this session. Standing void, supervision for general safety, improved safety awareness of surroundings. Toileting, Level of [place]: supervised Assistive Device: none Toileting Assess/Train, Position: standing Toileting Impairments: impaired vision, coordination impaired, impaired functional enduranc e/activity tolerance, sensation decreased Pt stood at the sink and washed his hands with supervision for general safety Grooming, Level of [place]: supervised Assistive Device: none Grooming Assess/Train, Position: standing Grooming Impairments: coordination impaired, impaired vision, sensation decreased, impaired balance IADLs Pt participatory in simulated housekeeping activity of watering plants with a watering can. Pt retrieved water in watering can from the sink, filled fdc and ambulated throughout t he room to pour water into containers/sink (simulating going around room to water potted mary nts). Pt able to ambulate while carrying the watering can without LOB or losing hold of the can, overall performed at supervision level of assist/min cues. Housekeeping Training, OT Eval Level Of [place]: Housekeeping: supervised Physical Assist/Nonphysical Assist: Housekeeping: verbal cues Assistive Device: none Therapeutic Exercise / Activity Pt participatory in dynamic balance and L side visual attention/oculomotor exercises while standing on the shuttle board to challenge balance. First, with BUE supported through handle s, weightshifted side<>side, forward<>backward, no LOB. Then, with support through one hand, other reaching for therapist hand to the sides, emphasizing L side to challenge L eye movem ents, L eye/head movements. Pt required cues to keep head straight while moving eyes only to wards L, able to accurately locate therapist hand 75% of the time. Challenged pt with increa sing speed of reaching out to the sides, one minor LOB requiring CGA. Functional Endurance Good for activities completed Cognitive Pt able to recall activities completed during previous therapy sessions, as well as after O T session. Using techniques for safe transfers and mobility learned from previous session, s aying out loud techniques for improved learning. Decreased cueing for L side attention this session, more aware of surroundings. Pt is having difficulty with wayfinding, unable to find location of commonly used rooms (family room, gym) requiring prompts/cues. Mood/Behavior: calm, cooperative Arousal Level: opens eyes spontaneously Speech: logical, clear, spontaneous Bed Mobility NT, pt up in chair at beginning and end of session Transfers Supervision for general safety, improving with overall safety awareness by verbalizing what his surroundings are, techniques for backing up to a chair and proper hand placement. Pt wo rked on managing chair at dining table, able to safely pull out/complete transfer/push in ch air. No cueing required this session. Sit-Stand, Level of [place]: supervised Stand-Sit, Level of [place]: supervised [id number], Assistive Device: none Safety Issues: balance decreased during turns, sequencing ability decreased Impairments: sensation decreased, strength decreased, postural control impaired, impaired v ision, impaired balance, coordination impaired OT Goal Review Date Most Recent Value STG Review Date 04/18/20 at 04/11/2020 09 LTG Review Date 04/25/20 at 04/11/2020 09 Grooming Goal Most Recent Value STG Status met at 04/13/2020 1210 STG [place] Level supervised at 04/11/2020 0922 STG Position standing at 04/11/2020 0922 STG Adaptive Equipment none at 04/11/2020 09 LTG Status progressing at 04/19/2020 1115 LTG [place] Level modified independent at 04/11/2020 09 LTG Position standing at 04/11/2020 0922 LTG Adaptive Equipment none at 04/11/2020 09 Bathing Goal Most Recent Value STG Status met [Score taken 04/16 PM tx] at 04/18/2020 1105 STG [place] Level supervised, set up required, verbal cues required at 04/11/2020 092 2 STG Adaptive Equpiment grab bars, shower head, detachable, sponge, long handled, shower ch air, shower chair with back at 04/11/2020921 STG Position sitting, standing at 04/11/2020 09 LTG Status new at 04/11/2020921 LTG [place] Level modified independent at 04/11/2020 09 LTG Adaptive Equpiment grab bars, shower head, detachable, sponge, long handled, shower ch air, shower chair with back at 04/11/2020 0922 LTG Position sitting, standing at 04/11/2020 0922 UB Dressing Goal Most Recent Value STG Status met at 04/12/2020 1158 STG [place] Level supervised, set up required, verbal cues required at 04/11/2020 092 2 STG Adaptive Equipment none at 04/11/2020 0922 LTG Status progressing at 04/16/2020 1405 LTG [place] Level modified independent at 04/11/2020 0922 LTG Adaptive Equipment none at 04/11/2020 0922 LTG Comments including clothing retrieval at 04/12/2020 1158 LB Dressing Goal Most Recent Value STG Status met [Except for TEDs, Score taken 04/16 PM tx] at 04/18/2020 1105 STG [place] Level supervised, set up required, verbal cues required at 04/11/2020 092 2 STG Adaptive Equipment sock-aid, shoe horn, long handled, sisal operator at 04/11/2020 0922 LTG Status progressing at 04/15/2020 0830 LTG [place] Level modified independent at 04/11/2020 0922 LTG Adaptive Equipment shoe horn, long handled, sock-aid, sisal operator at 04/11/2020 0922 LTG Comments including clothing retrieval at 04/12/2020 1158 Toileting Goal Most Recent Value STG Status met at 04/13/2020 1210 STG [place] Level supervised, set up required, verbal cues required at 04/11/2020 092 2 STG Assistive Device grab bar at 04/11/2020 0922 LTG Status progressing at 04/19/2020 1115 LTG [place] Level modified independent at 04/11/2020 0922 LTG Assistive Device grab bar at 04/11/2020 0922 Toilet Transfer Goal Most Recent Value STG Status met at 04/13/2020 1210 STG [place] Level supervised, set up required, verbal cues required at 04/11/2020 092 2 STG Assistive Device grab bars at 04/11/2020 0922 LTG Status progressing at 04/15/2020 0830 LTG [place] Level modified independent at 04/11/2020 0922 LTG Assistive Device grab bars at 04/11/2020 0922 Tub/Shower Transfer Goal Most Recent Value Tub/Shower Type tub/shower combo at 04/11/2020 0922 STG Status met at 04/18/2020 1105 STG [place] Level supervised, set up required, verbal cues required at 04/11/2020 092 2 STG Assistive Device grab bars, shower chair at 04/11/2020 0922 LTG Status new at 04/11/2020921 LTG [place] Level modified independent at 04/11/2020921 LTG Assistive Device grab bars, shower chair at 04/11/2020921 IADL Goal Most Recent Value STG Status not met at 04/18/2020 1105 STG Pt will be supervision vcs setup prn for meal preparation task at 04/11/2020921 LTG Status progressing at 04/17/2020 1207 LTG Pt will be Mod I for meal preparation task at 04/11/2020921 Vision Goal Most Recent Value STG Status met at 04/18/2020 1105 STG Pt will participate in eye exercises to increase ocular alignment, initiate saccadic e ye motion, increase VOR with eye focusing, and decrease diplopia as well as increase depth p erception and spatial relations to improve visual functions for ADLs, functional mobility/tf s. at 04/11/2020921 LTG Status progressing at 04/19/2020 1115 LTG Pt will report improvements to visual deficits impact on ADLs and utilize visual compe nsatory strategies indep at 04/11/2020921 Additional Goals #1 OT Most Recent Value STG Status met [Score taken 520 AM tx] at 04/18/2020 1105 STG Pt will participate in tasks to increase/improve LUE sensation and coordination. at 0 04/11/2020921 LTG Status revised, new at 04/12/2020 1158 LTG Pt L hand fine motor coordination will be improved as evidenced by L hand performance on the 9 hole peg test in 90 seconds or less. at 04/12/2020 1158 Electronically signed by: Dwayne IBARRA OT, 04/19/2020 4:16 PM lan of Care - Dusty Valero, BELT CONVEYOR DRIER - 2019 9:26 AM PDT IRF Physical Therapy Plan of Care Treatment Note Summary: Efren has been participating in physical therapy for treatment of Impaired balance , gait instability, impaired vision, coordination and sensation on (L) side following CVA . 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 Emphasis of session included neuro re-ed. Patient demonstrates progress towards functio nal goals as evidenced by pt was able to path find from room<>gym without v/c. Showing impro cinda multitasking, with only small LOB that pt is able to correct. Close SBA for safety RN cleared patient for participation in therapy. Patient was agreeable to therapy. Patient participated without adverse reaction. RN debriefed on therapy session and patient status. P atient is encouraged to ambulate into hallway with nursing staff. It is encouraged that the patient be up in chair for all meals. Recommended mobility with nursing: Day Night into the bathroom into the bathroom No Assistive Device No Assistive Device supervision / set-up supervision / set-up Remaining barriers to discharge and functional limitations include decreased insight into s afety and deficits, stairs at home, not yet able to mobilize at level safe for home discharg e, and medical status. Efren will benefit from continued therapeutic intervention to address ongoing impairments an d increase safety and independence with activities necessary for safe discharge. Refer jean-pierre valle for specific details regarding functional levels. Physical Therapy Discharge Recommendations are: Recommended discharge disposition: home with assist Post discharge physical therapy recommendation: outpatient therapy Equipment Recommendations: none Planned Interventions: balance training, bed mobility training, gait training, home exerci se program, patient/family education, strengthening, transfer training, stair training, chay r coordination training, neuromuscular re-education Frequency: daily(1-2x/day, IRF) Patient Status/Goals: Reflects last filed data and may be from multiple contributors. Transfers pt demo's improved safety with proper hand placement with all transfers completed Sit-Stand, Level of [place]: supervised Stand-Sit, Level of [place]: supervised [id number], Assistive Device: none Toilet, Level of [place]: supervised Toilet, Assistive Device: grab bars Safety Issues: balance decreased during turns, sequencing ability decreased, other (see com ments) Impairments: sensation decreased, strength decreased, postural control impaired, impaired v ision, impaired balance, coordination impaired Gait training for multitasking during gt; pt with small LOB, able to correct no falls Level of [place]: verbal cues required, stand by assist Assistive Device: none Distance (feet): 250 Gait Deviations: stride width increased, drl-jc-ywgek clearance decreased Safety Issues: balance decreased during turns Impairments: impaired balance, coordination impaired, impaired vision, motor control impair ed, postural control impaired Balance Sitting Balance: Static: normal balance Sitting Balance: Dynamic: normal balance Standing Balance: Static: good balance Standing Balance: Dynamic: good balance Therapeutic Exercise Balance exercises: carry items, avoid obstacles, sudden stops, head turns Repetitions: 3 x15 sec for each single LE stance. 20 repetitions of throws in clock co nfiguration infront of pt. Functional Exercises: standing rows and gentle neck stretches Repetitions: 8 min Functional Endurance good for activities completed PT Goal Review Date Most Recent Value STG Review Date 04/18/20 at 04/11/2020 1108 LTG Review Date 04/25/20 at 04/11/2020 1108 Kapuev-Rqn-Dmnvii Goal Most Recent Value STG Status met at 04/14/2020 0935 STG [place] Level supervised at 04/11/2020 1108 STG Assistive Device none at 04/11/2020 1108 LTG Status met at 04/14/2020 0935 LTG [place] Level modified independent at 04/11/2020 1108 LTG Assistive Device none at 04/11/2020 1108 Gos-Kypqc-Dal Goal Most Recent Value STG Status met at 04/15/2020 1345 STG [place] Level supervised at 04/11/2020 1108 STG Assistive Device none at 04/11/2020 1108 LTG Status progressing at 04/19/2020 0926 LTG [place] Level modified independent at 04/11/2020 1108 LTG Assistive Device none at 04/11/2020 1108 Gait Goal Most Recent Value STG Status met at 04/14/2020 0935 STG [place] Level stand by assist at 04/11/2020 1108 STG Assistive Device none at 04/11/2020 1108 STG Distance (feet) 300' at 04/11/2020 1108 LTG Status progressing at 04/19/2020 0926 LTG [place] Level supervised at 04/11/2020 1108 LTG Assistive Device none at 04/11/2020 1108 LTG Distance (feet) > 1,000' at 04/15/2020 1345 LTG Comments for community mobility at 04/15/2020 1345 Stair Goal Most Recent Value STG Status met at 04/18/2020 0923 STG [place] Level supervised at 04/11/2020 1108 STG Assistive Device 2 rails at 04/11/2020 1108 STG Number of Stairs 12 at 04/11/2020 1108 LTG Status progressing at 04/18/2020 1507 LTG [place] Level modified independent at 04/11/2020 1108 LTG Assistive Device 2 rails at 04/11/2020 1108 LTG Number of Stairs 12 at 04/11/2020 1108 Additional Goal #1 PT Most Recent Value STG Status met at 04/18/2020 0923 STG Pt will demonstrate improve DGI score to 15/24 to reduce fall risk. at 04/11/2020 1108 LTG Status progressing at 04/18/2020 1507 LTG Improve DGI score to >19/24 to reduce fall rsik. at 04/11/2020 1108 Electronically signed by: Dusty Valero PTA, 04/19/2020 12:21 PM lan of Care - Lenora Delgado Spee Pathologist - 04/19/2020 7:30 AM PDT IRF Speech Therapy Plan of Care Treatment Note Summary: Efren has been participating in speech therapy for treatment of Moderately impair ed immediate and delayed memory, mildly impaired visuospatial skills. Emphasis of session in cluded training in results of cognitive-linguistic assessment, and use of external systems t o improve recall and thought organization. Patient demonstrates progress towards functional goals as evidenced by ability to demonstrate use of tablet for recall. Remaining barriers t o Cognition include comorbidities, memory impairment. Patient demonstrated use of tablet vince application with voice recording option to make not es. Max cues needed for use, with fading cues. Pt continuing to use written daily notes unti l tablet use independent. Patient motivated to practice tablet use; prefers this method at h e does not need to write and can utilize voice recording. Efren will benefit from continued therapeutic intervention to address ongoing impairments an d increase safety and independence. Refer below for specific details regarding specifics of session and impairments. Speech Language Pathology Discharge Recommendations are: Recommended discharge disposition: home with family/caregiver Post discharge speech language pathology recommendation: continue SAND WORKER tx for cognitive-dillon guistic, outpatient therapy Planned Interventions: compensatory strategies, memory, executive function skills, reading , cognitive stimulation, writing, other (see comments) Recommended Frequency: 5 times/wk Patient Status/Goals: Reflects last filed data and may be from multiple contributors. Cognitive Pt demonstrated good recall throughout session, recalling information provided at beginning of session. Mood/Behavior: calm, cooperative Orientation: oriented x 4 Attention: WNL/WFL Arousal Level: opens eyes spontaneously Speech: logical, clear, spontaneous Cognition Goal Most Recent Value STG Status continued, progressing at 04/19/2020 0730 STG Pt will recall to use memory book to compensate for episodic memory impairment with m in cues from SAND WORKER in 3 consecutive sessions. at 04/15/2020 1339 Additional Goals #1 SAND WORKER Most Recent Value STG Status met at 04/14/2020 1430 STG Pt will verbally name 10 items in room from left space to target left visual neglect i ndep. at 04/12/2020 1224 LTG Status continued, progressing at 04/19/2020 0730 LTG Pt will complete functional reading tasks with 4/5 success on independent use of scann ing strateges e.g. recalling to scall all the way to left at 04/15/2020 1339 Additional Goals #2 SAND WORKER Most Recent Value STG Status continued, progressing at 04/18/2020 1643 STG Patient will use self selected compensatory strategy during structured immediate memor y tasks in 4/5 opportunities with mod cues from SAND WORKER. at 04/15/2020 1339 Additional Goals #3 SAND WORKER Most Recent Value STG Status continued, progressing at 04/19/2020 0730 STG Patient will participate in education of compensatory strategies for improved STM at 0 04/15/2020 1339 LTG Status continued, progressing at 04/19/2020 0730 LTG Patient will utilize compensatory strategies for improved recall 4/5 opportunities ove r 3 consecutive sessions and min cues at 04/12/2020 1224 Electronically signed by: Lenora Delgado Speech Pathologist, 04/19/2020 7:45 AMElectronic ally signed by Lenora Delgado Speech Pathologist at 04/19/2020 7:50 AM PDTPlan of Care - Anthony Goodman Chaplain - 04/18/2020 4:20 PM PDT Spiritual Care Efren Pollack is a 55 y.o. male who is admitted for CVA. Cooker Operator visit is in response to routine rounding Spiritual Evaluation: Efren appeared energetic and joyful as he asked for prayer. He went on to talk about his str yoan and the life style changes now facing him. He draws strength from his el and the supp ort of his . Spiritual Interventions: I offered supportive presence and prayer Spiritual Outcomes: Efren expresses deep spiritual comfort and renewed hope following the visit. Spiritual Goals/Follow-up: Spiritual Care continue to offer prayer and supportive presence while in hospital.Traci gannon signed by Efraín Barnhartlain at 04/18/2020 4:52 PM PDTPlan of Care - Yenni Jiménez RN - 04/18/2020 4:20 PM PDT Problem: Adult Inpatient Plan of Care Goal: [...] Fall and Fall-Related Injury Outcome: Ongoing, progressing Problem: Adjustment to Illness (Stroke, Ischemic/Transient Ischemic Attack) Goal: Optimal Coping Outcome: Ongoing, progressing Problem: Bowel Elimination Impaired (Stroke, Ischemic/Transient Ischemic Attack) Goal: Effective Bowel Elimination Outcome: Ongoing, progressing Problem: Cerebral Tissue Perfusion Risk (Stroke, Ischemic/Transient Ischemic Attack) Goal: Optimal Cerebral Tissue Perfusion Outcome: Ongoing, progressing Problem: Eating/Swallowing Impairment (Stroke, Ischemic/Transient Ischemic Attack) Goal: Oral Intake without Aspiration Outcome: Ongoing, progressing Problem: Functional Ability Impaired (Stroke, Ischemic/Transient Ischemic Attack) Goal: Optimal Functional Ability Outcome: Ongoing, progressing Problem: Pain (Stroke, Ischemic/Transient Ischemic Attack) Goal: Acceptable Pain Control Outcome: Ongoing, progressing Problem: Urinary Elimination Impaired (Stroke, Ischemic/Transient Ischemic Attack) Goal: Effective Urinary Elimination Outcome: Ongoing, progressing Problem: Discharge Planning Goal: Patient's discharge needs will be identified in a timely manner Outcome: Ongoing, progressing Goal: Patient will be discharged in a safe manner Outcome: Ongoing, progressing Problem: Self-Care Deficit Goal: Improved Ability to Complete Activities of Daily Living Outcome: Ongoing, progressing Problem: Mobility Impairment Goal: Optimal Mobility Outcome: Ongoing, progressing Problem: Cognitive Impairment Goal: Optimal Functional [place] Outcome: Ongoing, progressing Problem: Skin Injury Risk Increased Goal: Skin Health and Integrity Outcome: Ongoing, progressing Problem: Spiritual Distress Risk or Actual Goal: Spiritual Wellbeing Outcome: Ongoing, progressing Efren is A&Ox4, calling out appropriately for assistance. No c/o pain during day shift. C/o anxiety this morning, required rx to aid with anxiety prn. Ambulating w sba, no AD. LBM toda y. Voiding in BR w/o difficulties. Eating and drinking w/o difficulties. Taking rx whole w w ater. Pt verbalizing understanding when walking to turn slowly around the corners. lan of Care - Jenna Duque PT - 04/18/2020 3:07 PM PDTFormatting of this note might be different from the [facility]. [facility] Physical Therapy Plan of Care Treatment Note Summary: Efren has been participating in physical therapy for treatment of Impaired balanc e, gait instability, impaired vision, coordination and sensation on (L) side following CVA . 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 Emphasis of session included gait training, path finding, community re-integration and neuro re-education. Patient demonstrates progress towards functional goals as evidenced by increased awareness and scanning to his (L) side and dec.veering to (L) side. RN cleared patient for participation in therapy. Patient was agreeable to therapy. Patient participated without adverse reaction. Patient is [facility] It is encouraged that the patient be up in chair for all meals. Recommended mobility with nursing: Day Night into the bathroom and into the hallway into the bathroom and into the hallway No Assistive Device No Assistive Device supervision / set-up supervision / set-up Remaining barriers to discharge and functional limitations include decreased functional tra nsfers, decreased gait velocity, demonstrating need for 24/7 supervision, not yet able to mo bilize at level safe for home discharge, and medical status. Efren will benefit from continued therapeutic intervention to address ongoing impairments an d increase safety and independence with activities necessary for safe discharge. Refer jean-pierre w for specific details regarding functional levels. Physical Therapy Discharge Recommendations are: Recommended discharge disposition: home with assist Post discharge physical therapy recommendation: outpatient therapy Equipment Recommendations: none Planned Interventions: balance training, bed mobility training, gait training, home exerci se program, patient/family education, strengthening, transfer training, stair training, chay r coordination training, neuromuscular re-education Frequency: daily(1-2x/day, IRF) Patient Status/Goals: Reflects last filed data and may be from multiple contributors. Bed Mobility cont.to demo Mod I Assistive Device: bed rails Roll Left, Level of [place]: modified independent Roll Right, Level of [place]: modified independent Scoot/Bridge, Level of [place]: modified independent Supine to Sit, Level of [place]: modified independent Sit to Supine, Level of [place]: modified independent Impairments: impaired vision Transfers supervision for safety, improved attention and scanning to (L) Bed-Chair, Level of [place]: supervised, verbal cues required Chair-Bed, Level of [place]: supervised, verbal cues required [id number], Assistive Device: none Sit-Stand, Level of [place]: supervised Stand-Sit, Level of [place]: supervised [id number], Assistive Device: none Safety Issues: balance decreased during turns, sequencing ability decreased, other (see com ments)(impaired vision) Impairments: sensation decreased, strength decreased, postural control impaired, impaired v ision, impaired balance, coordination impaired Gait community re-integration, walked on grass, cross walk, inclined/declined w/o LOB. Good sca nning when crossing the street. Minimal cues when pt was close to the edge of curb for safe ty. Level of [place]: verbal cues required, stand by assist Assistive Device: none Distance (feet): > 1,000 Gait Deviations: stride width increased, mmf-oz-umodm clearance decreased Safety Issues: balance decreased during turns Impairments: impaired balance, coordination impaired, impaired vision, motor control impair ed, postural control impaired Stairs no LOB. Number of Stairs: 12 Handrail Location: right side (ascending) Level of [place]: supervised Assistive Device: 1 rail Technique Used: step over step (ascending), step over step (descending) Safety Issues: balance decreased during turns, weight-shifting ability decreased Impairments: impaired balance, coordination impaired, impaired vision, motor control impair ed, sensory feedback impaired Therapeutic Exercise Neuromuscular Reeducation: sit to stand from a low surface and a compliant surface with EO/ EC. difficuty controlling descent with eyes close. PT Goal Review Date Most Recent Value STG Review Date 04/18/20 at 04/11/2020 1108 LTG Review Date 04/25/20 at 04/11/2020 1108 [id number]-Ntg-Yadtqi Goal Most Recent Value STG Status met at 04/14/2020 0935 STG [place] Level supervised at 04/11/2020 1108 STG Assistive Device none at 04/11/2020 1108 LTG Status met at 04/14/2020 0935 LTG [place] Level modified independent at 04/11/2020 1108 LTG Assistive Device none at 04/11/2020 1108 Ehz-Zosdp-Ace Goal Most Recent Value STG Status met at 04/15/2020 1345 STG [place] Level supervised at 04/11/2020 1108 STG Assistive Device none at 04/11/2020 1108 LTG Status progressing at 04/18/2020 1507 LTG [place] Level modified independent at 04/11/2020 1108 LTG Assistive Device none at 04/11/2020 1108 Gait Goal Most Recent Value STG Status met at 04/14/2020 0935 STG [place] Level stand by assist at 04/11/2020 1108 STG Assistive Device none at 04/11/2020 1108 STG Distance (feet) 300' at 04/11/2020 1108 LTG Status progressing at 04/18/2020 1507 LTG [place] Level supervised at 04/11/2020 1108 LTG Assistive Device none at 04/11/2020 1108 LTG Distance (feet) > 1,000' at 04/15/2020 1345 LTG Comments for community mobility at 04/15/2020 1345 Stair Goal Most Recent Value STG Status met at 04/18/2020 0923 STG [place] Level supervised at 04/11/2020 1108 STG Assistive Device 2 rails at 04/11/2020 1108 STG Number of Stairs 12 at 04/11/2020 1108 LTG Status progressing at 04/18/2020 1507 LTG [place] Level modified independent at 04/11/2020 1108 LTG Assistive Device 2 rails at 04/11/2020 1108 LTG Number of Stairs 12 at 04/11/2020 1108 Additional Goal #1 PT Most Recent Value STG Status met at 04/18/2020 0923 STG Pt will demonstrate improve DGI score to 15/24 to reduce fall risk. at 04/11/2020 1108 LTG Status progressing at 04/18/2020 1507 LTG Improve DGI score to >19/24 to reduce fall rsik. at 04/11/2020 1108 Electronically signed by: TABATHA DUQUE, PT, 04/18/2020 5:14 PM lan of Namita Schulz COTA - 04/18/2020 2:20 PM PDT IRF Occupational Therapy Plan of Care Treatment Note Summary: Efren has been participating in occupational therapy for treatment of decreased sa fety/capacity for indep with ADLs, IADLs, functional mobility/tfs following admission after Ischemic cerebrovascular accident (CVA) . Emphasis of session included Neuro Reeducation wi th visual perceptual activities working on L sided deficits. Patient demonstrates progress towards functional goals as evidenced by his ongoing participation and positivity working to wards his OT goals. Patient was agreeable to therapy. Patient participated without adverse reaction. RN debrief ed on therapy session and patient status. It is encouraged that the patient be up in chair f or all meals. Recommended toileting with nursing: Day Night toilet toilet No Assistive Device No Assistive Device stand by assistance stand by assistance Remaining barriers to discharge and functional limitations include decreased insight into s afety and deficits, decreased functional activity tolerance, decreased functional transfers, decreased ability to perform ADLs, decreased ability to perform IADLs, decreased ability to perform medication management, not yet able to mobilize at level safe for home discharge, a nd medical status. Efren will benefit from continued therapeutic intervention to address ongoing impairments an d increase safety and independence with activities necessary for safe discharge. Refer jean-pierre valle for specific details regarding functional levels. Occupational Therapy Discharge Recommendations are: Recommended discharge disposition: home with assist Post discharge occupational therapy recommendation: home health, other (see comment), outp atient therapy Equipment Recommendations: sisal operator Planned Interventions:ADL retraining, balance training, fine motor coordination training, f unctional endurance training, motor coordination training, neuromuscular re-education, patie nt/family education, transfer training, visual/perceptual retraining, IADL retraining, bed m obility training, ROM (Range of Motion), strengthening, other (see comments)(sensory) Recommended Frequency: (rehab schedule) Patient Status/Goals: Reflects last filed data and may be from multiple contributors. ADLs standing void, SBA for general safety Toileting, Level of [place]: stand by assist Assistive Device: none Toileting Assess/Train, Position: standing Toileting Impairments: impaired vision, coordination impaired, impaired functional enduranc e/activity tolerance, sensation decreased Pt stood at sink and washed his hands with SBA for general safety, but needed VC's requirin g to look to L and square up when reaching to sink to wash hands. Used L UE to locate paper towel dispenser. Grooming, Level of [place]: stand by assist Assistive Device: other (see comments) Grooming Assess/Train, Position: standing Grooming Impairments: coordination impaired, impaired vision, sensation decreased, impaired balance NEURO REEDUCATION; walked to conference room working on looking R/L and started session with "connect four" rodney fournier to work on visual perceptual skills for L side defecits. He was able to distinguish betwe en rows and colors and turn taking. Efren required VC's for using L UE and looking to the lef t during game. For last half of session MVPT was used to work on addressing defecits in visu al memory, visual closure, and spatial discrimination. He is presenting w/increased difficul ty w/spatial discrimination and some visual closure. More VC's and compensatory strategies w ere needed for explanation of differences in shapes and other objects that were missing [facility] es. We graded task by covering images only displaying 2 at a time to show the differeces in the images. His figure ground and visual memory seems to be easier for him to detect. During this exercise he was reminded to look to the L and use L UE to point to objects. Transfers SBA for general safety, cues for L side attention and for squaring up Sit-Stand, Level of [place]: verbal cues required, stand by assist Stand-Sit, Level of [place]: verbal cues required, stand by assist [id number], Assistive Device: none Toilet, Level of [place]: stand by assist, supervised Toilet, Assistive Device: (gait belt) Safety Issues: balance decreased during turns, sequencing ability decreased Impairments: sensation decreased, strength decreased, motor control impaired, postural cont rol impaired, impaired vision OT Goal Review Date Most Recent Value STG Review Date 04/18/20 at 04/11/2020 0922 LTG Review Date 04/25/20 at 04/11/2020 0922 Grooming Goal Most Recent Value STG Status met at 04/13/2020 1210 STG [place] Level supervised at 04/11/2020 0922 STG Position standing at 04/11/2020 0922 STG Adaptive Equipment none at 04/11/2020 0922 LTG Status progressing at 04/17/2020 1520 LTG [place] Level modified independent at 04/11/2020 0922 LTG Position standing at 04/11/2020 0922 LTG Adaptive Equipment none at 04/11/2020 0922 Bathing Goal Most Recent Value STG Status met [Score taken 04/16 PM tx] at 04/18/2020 1105 STG [place] Level supervised, set up required, verbal cues required at 04/11/2020 092 2 STG Adaptive Equpiment grab bars, shower head, detachable, sponge, long handled, shower ch air, shower chair with back at 04/11/2020 0922 STG Position sitting, standing at 04/11/2020 0922 LTG Status new at 04/11/2020 0922 LTG [place] Level modified independent at 04/11/2020 0922 LTG Adaptive Equpiment grab bars, shower head, detachable, sponge, long handled, shower ch air, shower chair with back at 04/11/2020 0922 LTG Position sitting, standing at 04/11/2020 0922 UB Dressing Goal Most Recent Value STG Status met at 04/12/2020 1158 STG [place] Level supervised, set up required, verbal cues required at 04/11/2020 092 2 STG Adaptive Equipment none at 04/11/2020 0922 LTG Status progressing at 04/16/2020 1405 LTG [place] Level modified independent at 04/11/2020 0922 LTG Adaptive Equipment none at 04/11/2020 0922 LTG Comments including clothing retrieval at 04/12/2020 1158 LB Dressing Goal Most Recent Value STG Status met [Except for TEDs, Score taken 04/16 PM tx] at 04/18/2020 1105 STG [place] Level supervised, set up required, verbal cues required at 04/11/2020 092 2 STG Adaptive Equipment sock-aid, shoe horn, long handled, sisal operator at 04/11/2020 0922 LTG Status progressing at 04/15/2020 0830 LTG [place] Level modified independent at 04/11/2020 0922 LTG Adaptive Equipment shoe horn, long handled, sock-aid, sisal operator at 04/11/2020 0922 LTG Comments including clothing retrieval at 04/12/2020 1158 Toileting Goal Most Recent Value STG Status met at 04/13/2020 1210 STG [place] Level supervised, set up required, verbal cues required at 04/11/2020 092 2 STG Assistive Device grab bar at 04/11/2020 0922 LTG Status progressing at 04/18/2020 1105 LTG [place] Level modified independent at 04/11/2020 0922 LTG Assistive Device grab bar at 04/11/2020 0922 Toilet Transfer Goal Most Recent Value STG Status met at 04/13/2020 1210 STG [place] Level supervised, set up required, verbal cues required at 04/11/2020 092 2 STG Assistive Device grab bars at 04/11/2020 0922 LTG Status progressing at 04/15/2020 0830 LTG [place] Level modified independent at 04/11/2020 0922 LTG Assistive Device grab bars at 04/11/2020 0922 Tub/Shower Transfer Goal Most Recent Value Tub/Shower Type tub/shower combo at 04/11/2020 0922 STG Status met at 04/18/2020 1105 STG [place] Level supervised, set up required, verbal cues required at 04/11/2020 092 2 STG Assistive Device grab bars, shower chair at 04/11/2020 0922 LTG Status new at 04/11/2020 0922 LTG [place] Level modified independent at 04/11/2020 0922 LTG Assistive Device grab bars, shower chair at 04/11/2020 0922 IADL Goal Most Recent Value STG Status not met at 04/18/2020 1105 STG Pt will be supervision vcs setup prn for meal preparation task at 04/11/2020 0922 LTG Status progressing at 04/17/2020 1207 LTG Pt will be Mod I for meal preparation task at 04/11/2020 0922 Vision Goal Most Recent Value STG Status met at 04/18/2020 1105 STG Pt will participate in eye exercises to increase ocular alignment, initiate saccadic e ye motion, increase VOR with eye focusing, and decrease diplopia as well as increase depth p erception and spatial relations to improve visual functions for ADLs, functional mobility/tf s. at 04/11/2020 0922 LTG Status progressing at 04/15/2020 0830 LTG Pt will report improvements to visual deficits impact on ADLs and utilize visual compe nsatory strategies indep at 04/11/2020 0922 Additional Goals #1 OT Most Recent Value STG Status met [Score taken 5/20 AM tx] at 04/18/2020 1105 STG Pt will participate in tasks to increase/improve LUE sensation and coordination. at 0 04/11/2020 0922 LTG Status revised, new at 04/12/2020 1158 LTG Pt L hand fine motor coordination will be improved as evidenced by L hand performance on the 9 hole peg test in 90 seconds or less. at 04/12/2020 1158 Electronically signed by: DAWNA Solares, 04/18/2020 4:20 PM lan of Care - Lenora Delgado Speech P athologist - 04/18/2020 11:56 AM PDTFormatting of this note might be different from the orig inal. IRF Speech Therapy Plan of Care Re-Evaluation Note Summary: Efren has been participating in speech therapy for treatment of Moderately impair ed immediate and delayed memory, mildly impaired visuospatial skills. Emphasis of session i ncluded re-assessment with RBANDS. Patient demonstrates progress towards functional goals as evidenced by improved subtest scores in visuospatial and delayed memory. Remaining barriers to Cognition include comorbidities, cognitive impairments, short term memory impairment. Efren will benefit from continued therapeutic intervention to address ongoing impairments an d increase safety and independence. Refer below for specific details regarding specifics of session and impairments. Speech Language Pathology Discharge Recommendations are: Recommended discharge disposition: home with family/caregiver Post discharge speech language pathology recommendation: continue SAND WORKER tx for cognitive-dillon guistic, outpatient therapy Planned Interventions: compensatory strategies, memory, executive function skills, reading , cognitive stimulation, writing, other (see comments) Recommended Frequency: 5 times/wk Patient Status/Goals: Reflects last filed data and may be from multiple contributors. Cognitive Pt recalling to use memory notebook, and utilizing daily schedule Mood/Behavior: calm, cooperative Orientation: oriented x 4 Attention: WNL/WFL Arousal Level: opens eyes spontaneously Speech: logical, clear, spontaneous Repeatable Battery for the Assessment of Neuropsychological Status (RBANS): Efren scored a total scale score of 409 on the RBANS (see breakdown below) and a Classificat ion of Moderately impaired (70-79). This score indicates he is more than one Standard Devia tion (15) below normal limits (score 100) . Significantly improved scored in delayed memory from 48 to 75, and visuospatial skills from 64 to 81. Scores: Total Score Index Score Classification Immediate Memory 65 Severely impaired (69 and below) List Learning 20 Story Memory 10 Visuospatial/Constructional 81 Mildly impaired (80-89) Figure Copy 15 Line Orientation 16 Language 94 Average (90-109) Picture Naming 10 Semantic Fluency 19 Attention 94 Average (90-109) Digit Span 16 Coding 13 Delayed Memory 75 Moderately impaired (70-79) List Recall 5 List Recognition 16 Story Recall 7 Figure Recall 13 Sum of Index Scores: 409 Total Scale Score: 77, scoring in the 6th percentile Interpretation: Qualitative Descriptions of RBANS Index Scores Index Score Classification 130 and above Very Superior 120-129 Superior 110-119 Highly Average 90-109 Average 80-89 Low Average 70-79 Borderline 69 and below Extremely Low Cognition Goal Most Recent Value STG Status progressing, continued at 04/18/2020 1643 STG Pt will recall to use memory book to compensate for episodic memory impairment with m in cues from SAND WORKER in 3 consecutive sessions. at 04/15/2020 1339 Additional Goals #1 SAND WORKER Most Recent Value STG Status met at 04/14/2020 1430 STG Pt will verbally name 10 items in room from left space to target left visual neglect i ndep. at 04/12/2020 1224 LTG Status continued, progressing at 04/18/2020 1643 LTG Pt will complete functional reading tasks with 4/5 success on independent use of scann ing strateges e.g. recalling to scall all the way to left at 04/15/2020 1339 Additional Goals #2 SAND WORKER Most Recent Value STG Status continued, progressing at 04/18/2020 1643 STG Patient will use self selected compensatory strategy during structured immediate memor y tasks in 4/5 opportunities with mod cues from SAND WORKER. at 04/15/2020 1339 Additional Goals #3 SAND WORKER Most Recent Value STG Status progressing, continued at 04/18/2020 1643 STG Patient will participate in education of compensatory strategies for improved STM at 0 04/15/2020 1339 LTG Status continued at 04/12/2020 1224 LTG Patient will utilize compensatory strategies for improved recall 4/5 opportunities ove r 3 consecutive sessions and min cues at 04/12/2020 1224 Electronically signed by: Lenora Delgado, Speech Pathologist, 04/18/2020 4:52 PMElectronic ally signed by Lenora Delgado Speech Pathologist at 04/18/2020 5:01 PM PDTPlan of Martha - Namita Huerta COTA - 04/18/2020 11:05 AM PDT IRF Occupational Therapy Plan of Care Treatment Note Summary: Efren has been participating in occupational therapy for treatment of decreased sa fety/capacity for indep with ADLs, IADLs, functional mobility/tfs following admission after Ischemic cerebrovascular accident (CVA) . Emphasis of session included neuro reeducation us ing production checker game. Patient demonstrates progress towards functional goals as evidenced by hi s ongoing participation working toward his OT goals. RN cleared patient for participation in therapy. Patient was agreeable to therapy. Patient participated without adverse reaction. RN debriefed on therapy session and patient status. I t is encouraged that the patient be up in chair for all meals. Recommended toileting with nursing: Day Night toilet toilet No Assistive Device No Assistive Device stand by assistance stand by assistance Remaining barriers to discharge and functional limitations include decreased insight into s afety and deficits, decreased functional activity tolerance, decreased functional transfers, decreased ability to perform ADLs, decreased ability to perform IADLs, decreased ability to perform medication management, not yet able to mobilize at level safe for home discharge, a nd medical status. Efren will benefit from continued therapeutic intervention to address ongoing impairments an d increase safety and independence with activities necessary for safe discharge. Refer jean-pierre valle for specific details regarding functional levels. Occupational Therapy Discharge Recommendations are: Recommended discharge disposition: home with assist Post discharge occupational therapy recommendation: home health, other (see comment), outp atient therapy Equipment Recommendations: sisal operator Planned Interventions:ADL retraining, balance training, fine motor coordination training, f unctional endurance training, motor coordination training, neuromuscular re-education, patie nt/family education, transfer training, visual/perceptual retraining, IADL retraining, bed m obility training, ROM (Range of Motion), strengthening, other (see comments)(sensory) Recommended Frequency: (rehab schedule) Patient Status/Goals: Reflects last filed data and may be from multiple contributors. ADLs Standing void, SBA for general safety, no cueing required for hand placement on grab bar fo r steadying Toileting, Level of [place]: stand by assist Assistive Device: grab bar Toileting Assess/Train, Position: standing Toileting Impairments: impaired vision, coordination impaired, impaired functional enduranc e/activity tolerance, sensation decreased NEURO REEDUCATION; playing checkers w/STEREOTYPER HELPER student addressing spatial relations being able to move by color and diagonally, figureground when checkers were stacked, hand placement on board, FMC w/L UE to retireve pieces, L inattention, perceptual defictis in visual closure and spatial relations to be able to get to one side of board to be crowned, to be able to make move on board with in space and color while moving chips w/L UE. Pt needed frequent VC's to be reminded to use L UE throughout exercise but was able to manuever w/some occasional moving of pieces by drag ging L UE across board. Needed some HOHA for hand placement for awareness of other pieces on board when moving individual piece. Left side of board was less tended to rather than right side. Pt enjoyed this exercise working on defecits. Pt did void in between exercise. Transfers SBA for general safety, cues for L side attention and for squaring up Sit-Stand, Level of [place]: verbal cues required, stand by assist Stand-Sit, Level of [place]: verbal cues required, stand by assist [id number], Assistive Device: none Toilet, Level of [place]: supervised Toilet, Assistive Device: (gait belt) Safety Issues: balance decreased during turns, sequencing ability decreased Impairments: sensation decreased, strength decreased, motor control impaired, postural cont rol impaired, impaired vision OT Goal Review Date Most Recent Value STG Review Date 04/18/20 at 04/11/2020 0922 LTG Review Date 04/25/20 at 04/11/2020 0922 Grooming Goal Most Recent Value STG Status met at 04/13/2020 1210 STG [place] Level supervised at 04/11/2020 0922 STG Position standing at 04/11/2020 0922 STG Adaptive Equipment none at 04/11/2020 0922 LTG Status progressing at 04/17/2020 1520 LTG [place] Level modified independent at 04/11/2020 0922 LTG Position standing at 04/11/2020 0922 LTG Adaptive Equipment none at 04/11/2020 0922 Bathing Goal Most Recent Value STG Status met [Score taken 04/16 PM tx] at 04/18/2020 1105 STG [place] Level supervised, set up required, verbal cues required at 04/11/2020 092 2 STG Adaptive Equpiment grab bars, shower head, detachable, sponge, long handled, shower ch air, shower chair with back at 04/11/2020 0922 STG Position sitting, standing at 04/11/2020 0922 LTG Status new at 04/11/2020 0922 LTG [place] Level modified independent at 04/11/2020 0922 LTG Adaptive Equpiment grab bars, shower head, detachable, sponge, long handled, shower ch air, shower chair with back at 04/11/2020 0922 LTG Position sitting, standing at 04/11/2020 0922 UB Dressing Goal Most Recent Value STG Status met at 04/12/2020 1158 STG [place] Level supervised, set up required, verbal cues required at 04/11/2020 092 2 STG Adaptive Equipment none at 04/11/2020 0922 LTG Status progressing at 04/16/2020 1405 LTG [place] Level modified independent at 04/11/2020 0922 LTG Adaptive Equipment none at 04/11/2020 0922 LTG Comments including clothing retrieval at 04/12/2020 1158 LB Dressing Goal Most Recent Value STG Status met [Except for TEDs, Score taken 04/16 PM tx] at 04/18/2020 1105 STG [place] Level supervised, set up required, verbal cues required at 04/11/2020 092 2 STG Adaptive Equipment sock-aid, shoe horn, long handled, sisal operator at 04/11/2020 0922 LTG Status progressing at 04/15/2020 0830 LTG [place] Level modified independent at 04/11/2020 0922 LTG Adaptive Equipment shoe horn, long handled, sock-aid, sisal operator at 04/11/2020 0922 LTG Comments including clothing retrieval at 04/12/2020 1158 Toileting Goal Most Recent Value STG Status met at 04/13/2020 1210 STG [place] Level supervised, set up required, verbal cues required at 04/11/2020 092 2 STG Assistive Device grab bar at 04/11/2020 0922 LTG Status progressing at 04/18/2020 1105 LTG [place] Level modified independent at 04/11/2020 0922 LTG Assistive Device grab bar at 04/11/2020 0922 Toilet Transfer Goal Most Recent Value STG Status met at 04/13/2020 1210 STG [place] Level supervised, set up required, verbal cues required at 04/11/2020 092 2 STG Assistive Device grab bars at 04/11/202022 LTG Status progressing at 04/15/2020 0830 LTG [place] Level modified independent at 04/11/2020921 LTG Assistive Device grab bars at 04/11/2020921 Tub/Shower Transfer Goal Most Recent Value Tub/Shower Type tub/shower combo at 04/11/2020921 STG Status met at 04/18/2020 1105 STG [place] Level supervised, set up required, verbal cues required at 04/11/2020 092 2 STG Assistive Device grab bars, shower chair at 04/11/2020921 LTG Status new at 04/11/2020921 LTG [place] Level modified independent at 04/11/2020921 LTG Assistive Device grab bars, shower chair at 04/11/2020921 IADL Goal Most Recent Value STG Status not met at 04/18/2020 1105 STG Pt will be supervision vcs setup prn for meal preparation task at 04/11/2020921 LTG Status progressing at 04/17/2020 1207 LTG Pt will be Mod I for meal preparation task at 04/11/2020 09 Vision Goal Most Recent Value STG Status met at 04/18/2020 1105 STG Pt will participate in eye exercises to increase ocular alignment, initiate saccadic e ye motion, increase VOR with eye focusing, and decrease diplopia as well as increase depth p erception and spatial relations to improve visual functions for ADLs, functional mobility/tf s. at 04/11/2020921 LTG Status progressing at 04/15/2020 0830 LTG Pt will report improvements to visual deficits impact on ADLs and utilize visual compe nsatory strategies indep at 04/11/2020 09 Additional Goals #1 OT Most Recent Value STG Status met [Score taken 5/20 AM tx] at 04/18/2020 1105 STG Pt will participate in tasks to increase/improve LUE sensation and coordination. at 0 04/11/2020921 LTG Status revised, new at 04/12/2020 1158 LTG Pt L hand fine motor coordination will be improved as evidenced by L hand performance on the 9 hole peg test in 90 seconds or less. at 04/12/2020 1158 Electronically signed by: DAWNA Solares, 04/18/2020 4:03 PM lan of Care - Tabatha Duque, PT - 2019 9:23 AM PDT IRF Physical Therapy Plan of Care Treatment Note Summary: Efren has been participating in physical therapy for treatment of Impaired balanc e, gait instability, impaired vision, coordination and sensation on (L) side following CVA . 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 Emphasis of session included transfers, gait, stairs, neuro re-education. Noted dec. B alance on gradient surface when doing multitasking activities and (L) foot unable to clear o bstacles well when stepping up. Pt education in doing 1 task at a time to reduce instabilit y. Patient demonstrates progress towards functional goals as evidenced by improved scanning to (L) and improved DGI score from to . RN cleared patient for participation in therapy. Patient was agreeable to therapy. Patient participated without adverse reaction. Patient is encouraged to ambulate into hallway with n ursing staff. It is encouraged that the patient be up in chair for all meals. Recommended mobility with nursing: Day Night into the bathroom and into the hallway into the bathroom and into the hallway No Assistive Device No Assistive Device supervision / set-up supervision / set-up Remaining barriers to discharge and functional limitations include decreased functional tra nsfers, demonstrating need for 24/7 supervision, not yet able to mobilize at level safe for home discharge, and medical status. Efren will benefit from continued therapeutic intervention to address ongoing impairments an d increase safety and independence with activities necessary for safe discharge. Refer jean-pierre valle for specific details regarding functional levels. Physical Therapy Discharge Recommendations are: Recommended discharge disposition: home with assist Post discharge physical therapy recommendation: outpatient therapy Equipment Recommendations: none Planned Interventions: balance training, bed mobility training, gait training, home exerci se program, patient/family education, strengthening, transfer training, stair training, chay r coordination training, neuromuscular re-education Frequency: daily(1-2x/day, IRF) Patient Status/Goals: Reflects last filed data and may be from multiple contributors. Bed Mobility cont.to demo Mod I Assistive Device: bed rails Roll Left, Level of [place]: modified independent Roll Right, Level of [place]: modified independent Scoot/Bridge, Level of [place]: modified independent Supine to Sit, Level of [place]: modified independent Sit to Supine, Level of [place]: modified independent Impairments: impaired vision Transfers supervision for safety d/t impaired vision. no episode of colliting to obstacles this sess ion. Bed-Chair, Level of [place]: supervised, verbal cues required Chair-Bed, Level of [place]: supervised, verbal cues required [id number], Assistive Device: none Sit-Stand, Level of [place]: supervised Stand-Sit, Level of [place]: supervised [id number], Assistive Device: none Safety Issues: balance decreased during turns, sequencing ability decreased, other (see com ments)(impaired vision) Impairments: sensation decreased, strength decreased, postural control impaired, impaired v ision, impaired balance, coordination impaired Gait incorporated gait velocity test. improving, dec. veering to (L). improved scanning to (L) side. Level of [place]: verbal cues required, stand by assist Assistive Device: none Distance (feet): 600' + 150' Gait Deviations: stride width increased, [id number] clearance decreased Safety Issues: balance decreased during turns Impairments: impaired balance, coordination impaired, impaired vision, motor control impair ed, postural control impaired Stairs improving, a little slower descending steps d/t impaired vision. Number of Stairs: 12 Handrail Location: right side (ascending) Level of [place]: supervised Assistive Device: 1 rail Technique Used: step over step (ascending), step over step (descending) Safety Issues: balance decreased during turns, weight-shifting ability decreased Impairments: impaired balance, coordination impaired, impaired vision, motor control impair ed, sensory feedback impaired Balance Dynamic Gait Index: Efren scored 19/24 on the Dynamic Gait Index (with no assistive device), indicating he is a moderate fall risk. Gait Level Surface: 3 - Normal: walk 20' no assistive devices, good speed, no evidence of i mbalance, normal gait pattern Change in Gait Speed: 2 - Mild impairment: is able to change speeds but demonstrates mild g ait deviation or not gait deviation but unable to achieve a significant change in velocity o r uses assistive device. Horizontal Head Turns: 2 - Mild impairment: performs head turns smoothly with slight change in gait velocity, ie: minor disruption to smooth gait or uses walking aid Vertical Head Turns: 2 - Mild impairment: performs head turns smoothly with slight change i n gait velocity, ie minor disruption to smooth gait path or uses walking aid Gait Pivot Turn: 2 - Mild impairment: Pivot turn safely in > 3 seconds and stops with no lo ss of balance Step over Obstacle: 3 - Normal: is able to step over the box without changing gait speed, n o evidence of imbalance Step around Obstacle: 3 - Normal: is able to walk around both cones without changing gait s peed, no evidence of imbalance Steps: 2 - Mild impairment: alternating feet, must use rail Total score: 19 Fall Risk: 19-22 - moderate fall risk Note: w/o AD Interpretation: - Predicts fall risk <19 = [...] of falling For more information, please visit: [email or web address] Therapeutic Exercise improved ankle strategies, o major LOB during balance activities. Balance exercises: multiple steps/stairs, distractible environment, head turns, catch, thr ow, speed walk, step over obstacles, avoid obstacles, narrow base of support(standing on a d ynadisc with a board on top. Pt pulling on a rope) Repetitions: 3 x15 sec for each single LE stance. 20 repetitions of throws in clock co nfiguration infront of pt. PT Goal Review Date Most Recent Value STG Review Date 04/18/20 at 04/11/2020 1108 LTG Review Date 04/25/20 at 04/11/2020 1108 [id number] Goal Most Recent Value STG Status met at 04/14/2020 0935 STG [place] Level supervised at 04/11/2020 1108 STG Assistive Device none at 04/11/2020 1108 LTG Status met at 04/14/2020 0935 LTG [place] Level modified independent at 04/11/2020 1108 LTG Assistive Device none at 04/11/2020 1108 Vew-Icqwm-Szl Goal Most Recent Value STG Status met at 04/15/2020 1345 STG [place] Level supervised at 04/11/2020 1108 STG Assistive Device none at 04/11/2020 1108 LTG Status progressing at 04/18/2020 0923 LTG [place] Level modified independent at 04/11/2020 1108 LTG Assistive Device none at 04/11/2020 1108 Gait Goal Most Recent Value STG Status met at 04/14/2020 0935 STG [place] Level stand by assist at 04/11/2020 1108 STG Assistive Device none at 04/11/2020 1108 STG Distance (feet) 300' at 04/11/2020 1108 LTG Status progressing at 04/18/2020 0923 LTG [place] Level supervised at 04/11/2020 1108 LTG Assistive Device none at 04/11/2020 1108 LTG Distance (feet) > 1,000' at 04/15/2020 1345 LTG Comments for community mobility at 04/15/2020 1345 Stair Goal Most Recent Value STG Status met at 04/18/2020 0923 STG [place] Level supervised at 04/11/2020 1108 STG Assistive Device 2 rails at 04/11/2020 1108 STG Number of Stairs 12 at 04/11/2020 1108 LTG Status continued at 04/18/2020 0923 LTG [place] Level modified independent at 04/11/2020 1108 LTG Assistive Device 2 rails at 04/11/2020 1108 LTG Number of Stairs 12 at 04/11/2020 1108 Additional Goal #1 PT Most Recent Value STG Status met at 04/18/2020 0923 STG Pt will demonstrate improve DGI score to 15/24 to reduce fall risk. at 04/11/2020 1108 LTG Status continued at 04/18/2020 0923 LTG Improve DGI score to >19/24 to reduce fall rsik. at 04/11/2020 1108 Electronically signed by: TABATHA DUQUE, PT, 04/18/2020 4:58 PM lan of Nilam Abbott RN - 04/17/2020 6 :53 PM PDTGreg denied pain today. He is having problems with forgetfulness but is A&O. He arriaga s a left visual field cut and left sided neglect. He did not have drift or pronation of his extremities today, his finger to nose was between his eyebrows at first but he corrected imm ediately. His eyes were PERRLA and his muscle strength was moderate. He has some numbness in his LUE. BT's were present and last BM was 04/17/20. He did have some anxiety today for whic h he received xanax. Plan of Care - Dwayne Ibarra, OT - 04/17/2020 3:20 PM PDTFormatting of this note might b e different from the original. IRF Occupational Therapy Plan of Care Treatment Note Summary: Efren has been participating in occupational therapy for treatment of decreased s afety/capacity for indep with ADLs, IADLs, functional mobility/tfs following admission after Ischemic cerebrovascular accident (CVA) . Emphasis of session included toileting, grooming , oculomotor/balance exercises to promote function in daily activities. Patient demonstrate s progress towards functional goals as evidenced by improving insight/problem solving with f all prevention techniques, good participation throughout vision exercises. Patient was agreeable to therapy. Patient participated without adverse reaction. Patient is encouraged to ambulate into hallway with nursing staff. It is encouraged that the patient b e up in chair for all meals. Recommended toileting with nursing: Day Night toilet toilet No Assistive Device No Assistive Device stand by assistance contact guard assistance stand by assistance contact guard assistance Remaining barriers to discharge and functional limitations include decreased insight into s afety and deficits, decreased functional activity tolerance, decreased functional transfers, decreased ability to perform ADLs, decreased ability to perform IADLs, decreased ability to perform medication management, not yet able to mobilize at level safe for home discharge, a nd medical status. Efren will benefit from continued therapeutic intervention to address ongoing impairments an d increase safety and independence with activities necessary for safe discharge. Refer jean-pierre valle for specific details regarding functional levels. Occupational Therapy Discharge Recommendations are: Recommended discharge disposition: home with assist Post discharge occupational therapy recommendation: home health, other (see comment), outp atient therapy Equipment Recommendations: sisal operator Planned Interventions:ADL retraining, balance training, fine motor coordination training, f unctional endurance training, motor coordination training, neuromuscular re-education, patie nt/family education, transfer training, visual/perceptual retraining, IADL retraining, bed m obility training, ROM (Range of Motion), strengthening, other (see comments)(sensory) Recommended Frequency: (rehab schedule) Patient Status/Goals: Reflects last filed data and may be from multiple contributors. ADLs Standing void, SBA for general safety, no cueing required for hand placement on grab bar fo r steadying Toileting, Level of [place]: stand by assist Assistive Device: grab bar Toileting Assess/Train, Position: standing Toileting Impairments: impaired vision, coordination impaired, impaired functional enduranc e/activity tolerance, sensation decreased Pt stood at the sink and washed his hands with SBA for general safety, no cueing required t o look to L to locate paper towel dispenser Grooming, Level of [place]: stand by assist Assistive Device: none Grooming Assess/Train, Position: standing Grooming Impairments: coordination impaired, impaired vision, sensation decreased, impaired balance Vision: Vision Comments: Pt participatory in oculomotor and vision/balance activities using target cross board and laser headpiece. Pt performed exercises standing approximately 12 ft from th e hot oiler. First, with wide SRINIVAS, pt directed to following lines on L side as instructed with both eyes open, then with R eye covered. Pt slightly overshooting d/t difficulty locating th e laser light, using head turns to locate lines accurately. Pt then challenged to find corne rs of the hot oiler when instructions, working on tracking and saccades, increased time to loca te corners on L side, slight imbalances needing intermittent CGA. Pt then challenged to johnathan d with narrow SRINIVAS and perform exercises locating corners of the hot oiler as instructions, LOB after 2 R<>L head movement, able to self-correct to wider SRINIVAS without cues. Functional Endurance Good for activities completed Cognitive Anxious upon OT arrival, had just called RN for anxiety medication. Pt agreeable to therapy , stating he needs a distraction from feeling anxious. Pt able to recall activities complete d this session, therapist noted activities in memory book. Pt had fall last night, and pt di scussed/problem solved through what went wrong, improved insight into deficits, able to reca ll fall recovery techniques. Problem solved through fall prevention techniques. Mood/Behavior: cooperative, calm, anxious Arousal Level: opens eyes spontaneously Speech: logical, clear, spontaneous Bed Mobility NT, pt up in chair at beginning and end of session Transfers SBA for general safety, cues for L side attention Sit-Stand, Level of [place]: verbal cues required, stand by assist Stand-Sit, Level of [place]: verbal cues required, stand by assist [id number], Assistive Device: none Safety Issues: balance decreased during turns, sequencing ability decreased Impairments: sensation decreased, strength decreased, motor control impaired, postural cont rol impaired, impaired vision OT Goal Review Date Most Recent Value STG Review Date 04/18/20 at 04/11/2020 0922 LTG Review Date 04/25/20 at 04/11/2020 0922 Grooming Goal Most Recent Value STG Status met at 04/13/2020 1210 STG [place] Level supervised at 04/11/2020 0922 STG Position standing at 04/11/2020 0922 STG Adaptive Equipment none at 04/11/2020 09 LTG Status progressing at 04/17/2020 1520 LTG [place] Level modified independent at 04/11/2020 0922 LTG Position standing at 04/11/2020 0922 LTG Adaptive Equipment none at 04/11/2020 0922 Bathing Goal Most Recent Value STG Status progressing at 04/16/2020 1405 STG [place] Level supervised, set up required, verbal cues required at 04/11/2020 092 2 STG Adaptive Equpiment grab bars, shower head, detachable, sponge, long handled, shower ch air, shower chair with back at 04/11/2020 0922 STG Position sitting, standing at 04/11/2020 0922 LTG Status new at 04/11/2020 0922 LTG [place] Level modified independent at 04/11/2020 0922 LTG Adaptive Equpiment grab bars, shower head, detachable, sponge, long handled, shower ch air, shower chair with back at 04/11/2020 0922 LTG Position sitting, standing at 04/11/2020 0922 UB Dressing Goal Most Recent Value STG Status met at 04/12/2020 1158 STG [place] Level supervised, set up required, verbal cues required at 04/11/2020 092 2 STG Adaptive Equipment none at 04/11/2020 0922 LTG Status progressing at 04/16/2020 1405 LTG [place] Level modified independent at 04/11/2020 0922 LTG Adaptive Equipment none at 04/11/2020 0922 LTG Comments including clothing retrieval at 04/12/2020 1158 LB Dressing Goal Most Recent Value STG Status progressing at 04/16/2020 1405 STG [place] Level supervised, set up required, verbal cues required at 04/11/2020 092 2 STG Adaptive Equipment sock-aid, shoe horn, long handled, sisal operator at 04/11/2020 0922 LTG Status progressing at 04/15/2020 0830 LTG [place] Level modified independent at 04/11/2020 0922 LTG Adaptive Equipment shoe horn, long handled, sock-aid, sisal operator at 04/11/2020 0922 LTG Comments including clothing retrieval at 04/12/2020 1158 Toileting Goal Most Recent Value STG Status met at 04/13/2020 1210 STG [place] Level supervised, set up required, verbal cues required at 04/11/2020 092 2 STG Assistive Device grab bar at 04/11/2020 0922 LTG Status progressing at 04/17/2020 1520 LTG [place] Level modified independent at 04/11/2020 0922 LTG Assistive Device grab bar at 04/11/2020 0922 Toilet Transfer Goal Most Recent Value STG Status met at 04/13/2020 1210 STG [place] Level supervised, set up required, verbal cues required at 04/11/2020 092 2 STG Assistive Device grab bars at 04/11/2020 0922 LTG Status progressing at 04/15/2020 0830 LTG [place] Level modified independent at 04/11/2020 0922 LTG Assistive Device grab bars at 04/11/2020 0922 Tub/Shower Transfer Goal Most Recent Value Tub/Shower Type tub/shower combo at 04/11/2020 0922 STG Status progressing at 04/16/2020 1405 STG [place] Level supervised, set up required, verbal cues required at 04/11/2020 092 2 STG Assistive Device grab bars, shower chair at 04/11/2020 0922 LTG Status new at 04/11/2020 0922 LTG [place] Level modified independent at 04/11/2020 0922 LTG Assistive Device grab bars, shower chair at 04/11/2020 0922 IADL Goal Most Recent Value STG Status progressing at 04/17/2020 1207 STG Pt will be supervision vcs setup prn for meal preparation task at 04/11/2020 0922 LTG Status progressing at 04/17/2020 1207 LTG Pt will be Mod I for meal preparation task at 04/11/2020 0922 Vision Goal Most Recent Value STG Status progressing at 04/17/2020 1520 STG Pt will participate in eye exercises to increase ocular alignment, initiate saccadic e ye motion, increase VOR with eye focusing, and decrease diplopia as well as increase depth p erception and spatial relations to improve visual functions for ADLs, functional mobility/tf s. at 04/11/2020 0922 LTG Status progressing at 04/15/2020 0830 LTG Pt will report improvements to visual deficits impact on ADLs and utilize visual compe nsatory strategies indep at 04/11/2020 0922 Additional Goals #1 OT Most Recent Value STG Status progressing at 04/16/2020 1032 STG Pt will participate in tasks to increase/improve LUE sensation and coordination. at 0 04/11/2020 0922 LTG Status revised, new at 04/12/2020 1158 LTG Pt L hand fine motor coordination will be improved as evidenced by L hand performance on the 9 hole peg test in 90 seconds or less. at 04/12/2020 1158 Electronically signed by: Dwayne IBARRA OT, 04/17/2020 5:16 PM lan of Care - Anay Taylor PTA Student - 2:33 PM PDT IRF Physical Therapy Plan of Care Treatment Note Summary: Efren has been participating in physical therapy for treatment of Impaired balanc e, gait instability, impaired vision, coordination and sensation on (L) side following CVA . 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 Emphasis of session included increasing functional mobility during dynamic balance. Patient demonstrates progress towards functional goals as evidenced by demonstrating good d ynamic balance throughout session, with good stepping strategies and coordination. Patient was agreeable to therapy. Patient participated without adverse reaction. Patient is encouraged to ambulate into hallway with nursing staff. It is encouraged that the patient b e up in chair for all meals. Recommended mobility with nursing: Day Night into the bathroom and into the hallway into the bathroom and into the hallway No Assistive Device No Assistive Device stand by assistance stand by assistance Remaining barriers to discharge and functional limitations include decreased insight into s afety and deficits. Efren will benefit from continued therapeutic intervention to address ongoing impairments an d increase safety and independence with activities necessary for safe discharge. Refer belo w for specific details regarding functional levels. Physical Therapy Discharge Recommendations are: Recommended discharge disposition: home with assist Post discharge physical therapy recommendation: outpatient therapy Equipment Recommendations: none Planned Interventions: balance training, bed mobility training, gait training, home exerci se program, patient/family education, strengthening, transfer training, stair training, chay r coordination training, neuromuscular re-education Frequency: daily(1-2x/day, IRF) Patient Status/Goals: Reflects last filed data and may be from multiple contributors. Transfers Supervision for general safety, soem cues for attention towards left side of body Sit-Stand, Level of [place]: verbal cues required, supervised Stand-Sit, Level of [place]: verbal cues required, stand by assist Gui-[id number]-Mfd, Assistive Device: none Safety Issues: balance decreased during turns, sequencing ability decreased Impairments: sensation decreased, strength decreased, motor control impaired, postural cont rol impaired, impaired vision Gait scanning to the left and verbalization of hallway obstacles with patient able to avoid all of them, continues to drift to the left during gait and has to remind himself to walk in the middle of the hallway Level of [place]: verbal cues required, stand by assist Assistive Device: none Distance (feet): 520 Gait Deviations: stride width increased Safety Issues: balance decreased during turns Impairments: impaired balance, coordination impaired, impaired vision, motor control impair ed Balance dynamic balance performed during Wii bowling, with patient demonstrating good stepping stra tegies and improved dynamic stability Sitting Balance: Static: normal balance Sitting Balance: Dynamic: normal balance Standing Balance: Static: good balance Standing Balance: Dynamic: good balance Therapeutic Exercise neuro re-ed and balance Neuromuscular Reeducation: Wii bowling with stepping forward into lunge with L LE. Improved coordination, balance and stepping strategy with each bowl. Functional Endurance good for activities presented ROM L LE ROM: WFL R LE ROM: WFL Strength L LE Strength: grossly graded 4+/5 R LE Strength: grossly 5/5 PT Goal Review Date Most Recent Value STG Review Date 04/18/20 at 04/11/2020 1108 LTG Review Date 04/25/20 at 04/11/2020 1108 Lslrth-Vls-[id number] Goal Most Recent Value STG Status met at 04/14/2020 0935 STG [place] Level supervised at 04/11/2020 1108 STG Assistive Device none at 04/11/2020 1108 LTG Status met at 04/14/2020 0935 LTG [place] Level modified independent at 04/11/2020 1108 LTG Assistive Device none at 04/11/2020 1108 Qed-[id number]-Thw Goal Most Recent Value STG Status met at 04/15/2020 1345 STG [place] Level supervised at 04/11/2020 1108 STG Assistive Device none at 04/11/2020 1108 LTG Status progressing at 04/16/2020 1202 LTG [place] Level modified independent at 04/11/2020 1108 LTG Assistive Device none at 04/11/2020 1108 Gait Goal Most Recent Value STG Status met at 04/14/2020 0935 STG [place] Level stand by assist at 04/11/2020 1108 STG Assistive Device none at 04/11/2020 1108 STG Distance (feet) 300' at 04/11/2020 1108 LTG Status progressing at 04/17/2020 1433 LTG [place] Level supervised at 04/11/2020 1108 LTG Assistive Device none at 04/11/2020 1108 LTG Distance (feet) > 1,000' at 04/15/2020 1345 LTG Comments for community mobility at 04/15/2020 1345 Stair Goal Most Recent Value STG Status progressing at 04/17/2020 0952 STG [place] Level supervised at 04/11/2020 1108 STG Assistive Device 2 rails at 04/11/2020 1108 STG Number of Stairs 12 at 04/11/2020 1108 LTG Status new at 04/11/2020 1108 LTG [place] Level modified independent at 04/11/2020 1108 LTG Assistive Device 2 rails at 04/11/2020 1108 LTG Number of Stairs 12 at 04/11/2020 1108 Additional Goal #1 PT Most Recent Value STG Status progressing at 04/16/2020 1202 STG Pt will demonstrate improve DGI score to 15/24 to reduce fall risk. at 04/11/2020 1108 LTG Status new at 04/11/2020 1108 LTG Improve DGI score to >19/24 to reduce fall rsik. at 04/11/2020 1108 Electronically signed by: Anay Taylor BELT CONVEYOR DRIER Student, 04/17/2020 4:01 PMElectronically sign ed by Darby Rutherford PTA at 04/18/2020 12:29 PM PDT Associated attestation - Darby Rutherford, BELT CONVEYOR DRIER - 04/18/2020 12:29 PM PDTPortions of the hayley luation data modeler were performed and entered by Anay Taylor, Physical Therapist Studio Owner Student, under the direct supervision of Clinical Instructing Delanoed Physical Therapist Marlee lundberg. I have reviewed this documentation and agree w/ the treatment provided. Adequate supervision was given and correct CPT codes have been entered. Electronically signed by: Darby Rutherford PTA 04/17/2020 4:15 PM Plan of Care - Sonny Guo, [facility] [place] - 04/17/2020 12:11 PM PDTTeam Conference Patient and Family Follow Up Biodiesel Technology Manager met with Efren to review the plan of care established at today's team [facility]. 1. Efren continues to be progressing as was expected and his anticipated discharge date mannie ins scheduled for April 23, which he was agreeable to. 2. His , Susie, stated that she would not be able to attend caregiver training, as had been recommended, due to lacking a means for transportation from [place] to [facility]. JOLENE spoke with his about his discharge plan and she assured that she does feel com fortable providing cares for Efren at time of discharge, as she was able to assist him prior to this hospitalization when he was at a lesser level of independence than he will be after this stay. 3. CM affirmed that per his 's request, he would benefit from a tub transfer bench, tra nsfer pole, and a bed railing upon discharge. CM will reach out to Efren's provider at the [facility] EDGARDO Barnard, about ordering such items for him. Also, JOLENE will verify with the [place] if karis gomez will also be able to provide transportation for him back to [place] on day of discharg e . .Electronically signed by: GRAYSON Keating 04/17/2020 12:47 PM 3. JOLENE spoke to [place] medical practice manager for [facility]GARD[facility] Barnard asking her to request from [employer] orders for Efren for the above mentioned items - tub transfer bench, transfer pole, and a bed railing. MA indicated she would let MEDIA TECHNICIAN know of the request and contact CM if they are not able to b e filled, which CM was agreeable to. JOLENE reached out to [place] [facility] and spoke with Negra who indicated that due to COVID precautions, they have suspended general transportation services at this time. She di d state that they are making certain aceptions if the qualifies and transferred JOLENE t o the main office to inquire, but CM was only able to leave a detailed message with the inqu iry and will wait to hear back. .Electronically signed by: GRAYSON Keating 04/18/2020 2:12 PM 3. JOLENE heard back from LEÓN Ellington from [employer]GARDO Barnard's office who indicated that she had p laced orders for the tub transfer bench, transfer pole, and bed side railing to be mailed an d delivered to Efren's home, hopefully prior to his discharge home. She also indicated that he would be [facility] (JOLENE is unsure of correct acronym), which will assist with his vision deficits from the CVA. RN also suggested that a [facility] form be FAXE D to the [facility] office for caregiver support, which a window caser previously handling Efren's care had done. .Electronically signed by: GRAYSON Keating 04/18/2020 4:49 PM lan of Care - Namita Huerta COTA - 04/17/2020 12:07 PM PDT IRF Occupational Therapy Plan of Care Treatment Note Summary: Efren has been participating in occupational therapy for treatment of decreased sa fety/capacity for indep with ADLs, IADLs, functional mobility/tfs following admission after Ischemic cerebrovascular accident (CVA) . Emphasis of session included walking to the kitch en to do meal prep activity while tending to attention of L side. Patient demonstrates prog ress towards functional goals as evidenced by his ongoing participation working towards his OT goals.. RN cleared patient for participation in therapy. Patient was agreeable to therapy. Patient participated without adverse reaction. It is encouraged that the patient be up in chair for all meals. Recommended toileting with nursing: Day Night toilet toilet No Assistive Device No Assistive Device stand by assistance and verbal cues supervision / set-up stand by assistance and verbal cu es Remaining barriers to discharge and functional limitations include decreased insight into s afety and deficits, decreased functional activity tolerance, decreased functional transfers, decreased ability to perform ADLs, decreased ability to perform IADLs, not yet able to mobi lize at level safe for home discharge, and medical status. Efren will benefit from continued therapeutic intervention to address ongoing impairments an d increase safety and independence with activities necessary for safe discharge. Refer jean-pierre valle for specific details regarding functional levels. Occupational Therapy Discharge Recommendations are: Recommended discharge disposition: home with assist Post discharge occupational therapy recommendation: home health, other (see comment), outp atient therapy Equipment Recommendations: sisal operator Planned Interventions:ADL retraining, balance training, fine motor coordination training, f unctional endurance training, motor coordination training, neuromuscular re-education, patie nt/family education, transfer training, visual/perceptual retraining, IADL retraining, bed m obility training, ROM (Range of Motion), strengthening, other (see comments)(sensory) Recommended Frequency: (rehab schedule) BP sittin/64 HR sittin BP standin/61 HR standin Patient Status/Goals: Reflects last filed data and may be from multiple contributors. IADLs Pt agreeable to participate in meal prep activity in kitchen. BP check before walking to [facility]. Throughout activity, Efren required cues for attending to L side and squaring up due t o neglect of L side and being turned facing more to his right. He chose to make soup and was able to retrieve a pot from the cupboard and a can conference and event organiser from the drawer. HOHA was needed when using manual can conference and event organiser for steading and to losen surveying teacher of L UE. He set oven to low and stirred occasionlly w/spoon, waited for soup to warm up while he cleaned the counters. When soup was ready he turned off burner. He was able to retrieve a laddle and scoop soup and tf into a bowl. When pouring remainder of soup he needed VC's and assist w/placement of pot ove r bowl to keep from spilling. After he put dirty dishes into washer and finished tidying up. Efren demonstrated good safety awareness in kitchen, especially w/stove top. He poured (pum ped) himself a cup of coffee w/VC's for L hand/cup placement and carefully carried it back w /him to room w/no spills. Meal Preparation/Planning Training, OT Eval Level Of [place]: Meal Prep: stand by assist Physical Assist/Nonphysical Assist: Meal Prep: verbal cues, supervision Assistive Device: none Transfers SBA for general safety, assist with cues for attending to L side and squaring body up befor e sitting. Sit-Stand, Level of [place]: stand by assist, verbal cues required Stand-Sit, Level of [place]: verbal cues required, stand by assist Tbr-[id number]-Dyf, Assistive Device: none Safety Issues: balance decreased during turns, sequencing ability decreased, weight-shiftin g ability decreased Impairments: sensation decreased, impaired balance, strength decreased, motor control impai red, impaired vision, postural control impaired OT Goal Review Date Most Recent Value STG Review Date 04/18/20 at 04/11/2020 0922 LTG Review Date 04/25/20 at 04/11/2020 0922 Grooming Goal Most Recent Value STG Status met at 04/13/2020 1210 STG [place] Level supervised at 04/11/2020 0922 STG Position standing at 04/11/2020 0922 STG Adaptive Equipment none at 04/11/2020 0922 LTG Status progressing at 04/16/2020 1405 LTG [place] Level modified independent at 04/11/2020 0922 LTG Position standing at 04/11/2020 0922 LTG Adaptive Equipment none at 04/11/2020 0922 Bathing Goal Most Recent Value STG Status progressing at 04/16/2020 1405 STG [place] Level supervised, set up required, verbal cues required at 04/11/2020 092 2 STG Adaptive Equpiment grab bars, shower head, detachable, sponge, long handled, shower ch air, shower chair with back at 04/11/2020 0922 STG Position sitting, standing at 04/11/2020 0922 LTG Status new at 04/11/2020 0922 LTG [place] Level modified independent at 04/11/2020 0922 LTG Adaptive Equpiment grab bars, shower head, detachable, sponge, long handled, shower ch air, shower chair with back at 04/11/2020 0922 LTG Position sitting, standing at 04/11/2020 0922 UB Dressing Goal Most Recent Value STG Status met at 04/12/2020 1158 STG [place] Level supervised, set up required, verbal cues required at 04/11/2020 092 2 STG Adaptive Equipment none at 04/11/2020 0922 LTG Status progressing at 04/16/2020 1405 LTG [place] Level modified independent at 04/11/2020 0922 LTG Adaptive Equipment none at 04/11/2020 0922 LTG Comments including clothing retrieval at 04/12/2020 1158 LB Dressing Goal Most Recent Value STG Status progressing at 04/16/2020 1405 STG [place] Level supervised, set up required, verbal cues required at 04/11/2020 092 2 STG Adaptive Equipment sock-aid, shoe horn, long handled, sisal operator at 04/11/2020 0922 LTG Status progressing at 04/15/2020 0830 LTG [place] Level modified independent at 04/11/2020 0922 LTG Adaptive Equipment shoe horn, long handled, sock-aid, sisal operator at 04/11/2020 0922 LTG Comments including clothing retrieval at 04/12/2020 1158 Toileting Goal Most Recent Value STG Status met at 04/13/2020 1210 STG [place] Level supervised, set up required, verbal cues required at 04/11/2020 092 2 STG Assistive Device grab bar at 04/11/2020 0922 LTG Status progressing at 04/16/2020 1032 LTG [place] Level modified independent at 04/11/2020 0922 LTG Assistive Device grab bar at 04/11/2020 0922 Toilet Transfer Goal Most Recent Value STG Status met at 04/13/2020 1210 STG [place] Level supervised, set up required, verbal cues required at 04/11/2020 092 2 STG Assistive Device grab bars at 04/11/2020 0922 LTG Status progressing at 04/15/2020 0830 LTG [place] Level modified independent at 04/11/2020 0922 LTG Assistive Device grab bars at 04/11/2020 0922 Tub/Shower Transfer Goal Most Recent Value Tub/Shower Type tub/shower combo at 04/11/2020 0922 STG Status progressing at 04/16/2020 1405 STG [place] Level supervised, set up required, verbal cues required at 04/11/2020 092 2 STG Assistive Device grab bars, shower chair at 04/11/2020 0922 LTG Status new at 04/11/2020 0922 LTG [place] Level modified independent at 04/11/2020 0922 LTG Assistive Device grab bars, shower chair at 04/11/2020 09 IADL Goal Most Recent Value STG Status progressing at 04/17/2020 1207 STG Pt will be supervision vcs setup prn for meal preparation task at 04/11/2020921 LTG Status progressing at 04/17/2020 1207 LTG Pt will be Mod I for meal preparation task at 04/11/2020 0922 Vision Goal Most Recent Value STG Status progressing at 04/16/2020 1032 STG Pt will participate in eye exercises to increase ocular alignment, initiate saccadic e ye motion, increase VOR with eye focusing, and decrease diplopia as well as increase depth p erception and spatial relations to improve visual functions for ADLs, functional mobility/tf s. at 04/11/2020921 LTG Status progressing at 04/15/2020 0830 LTG Pt will report improvements to visual deficits impact on ADLs and utilize visual compe nsatory strategies indep at 04/11/2020 09 Additional Goals #1 OT Most Recent Value STG Status progressing at 04/16/2020 1032 STG Pt will participate in tasks to increase/improve LUE sensation and coordination. at 0 04/11/2020921 LTG Status revised, new at 04/12/2020 1158 LTG Pt L hand fine motor coordination will be improved as evidenced by L hand performance on the 9 hole peg test in 90 seconds or less. at 04/12/2020 1158 Additional Goals #2 OT Most Recent Value STG Status progressing at 04/15/2020 0830 Electronically signed by: DAWNA Solares, 04/17/2020 2:15 PM lan of Care - Anay Taylor PTA Studen t - 04/17/2020 9:52 AM PDT IRF Physical Therapy Plan of Care Treatment Note Summary: Efren has been participating in physical therapy for treatment of Impaired balanc e, gait instability, impaired vision, coordination and sensation on (L) side following CVA . 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 Emphasis of session included functional mobility with emphasis towards awareness of L side of body and increasing scanning of surroundings for patient safety. Balance on compliant huey face static and dynamic with mirror for visual feedback to promote postural awareness and fu nctional neuro re-educ. Patient demonstrates progress towards functional goals as evidenced by good vocalization of hallway obstacles and self-talk by patient to slow down and control movements. Patient was agreeable to therapy. Patient participated without adverse reaction. Patient is encouraged to ambulate into hallway with nursing staff. It is encouraged that the patient b e up in chair for all meals. Recommended mobility with nursing: Day Night into the bathroom and into the hallway into the bathroom and into the hallway No Assistive Device No Assistive Device supervision / set-up supervision / set-up Remaining barriers to discharge and functional limitations include decreased insight into s afety and deficits and stairs at home. Efren will benefit from continued therapeutic intervention to address ongoing impairments an d increase safety and independence with activities necessary for safe discharge. Refer jean-pierre valle for specific details regarding functional levels. Physical Therapy Discharge Recommendations are: Recommended discharge disposition: home with assist Post discharge physical therapy recommendation: outpatient therapy Equipment Recommendations: none Planned Interventions: balance training, bed mobility training, gait training, home exerci se program, patient/family education, strengthening, transfer training, stair training, chay r coordination training, neuromuscular re-education Frequency: daily(1-2x/day, IRF) Patient Status/Goals: Reflects last filed data and may be from multiple contributors. Bed Mobility pt demo'd Mod I for all bed mobility; light use of rails when turning Assistive Device: bed rails Roll Left, Level of [place]: modified independent Roll Right, Level of [place]: modified independent Scoot/Bridge, Level of [place]: modified independent Supine to Sit, Level of [place]: modified independent Sit to Supine, Level of [place]: modified independent Impairments: impaired vision Transfers Supervision for general safety, soem cues for attention towards left side of body Sit-Stand, Level of [place]: supervised, verbal cues required Stand-Sit, Level of [place]: supervised, verbal cues required Knm-Blroq-Orn, Assistive Device: none Tub, Level of [place]: not tested Safety Issues: balance decreased during turns, sequencing ability decreased, weight-shiftin g ability decreased Impairments: sensation decreased, impaired balance, strength decreased, motor control impai red, impaired vision, postural control impaired Gait scanning to the left and verbalization of hallway obstacles with patient able to avoid all of them, continues to drift to the left during gait and has to remind himself to walk in the middle of the hallway Level of [place]: verbal cues required, stand by assist Assistive Device: none Distance (feet): 520 Gait Deviations: stride width increased Safety Issues: balance decreased during turns Impairments: impaired balance, coordination impaired, sensory feedback impaired, motor cont rol impaired, impaired vision, postural control impaired Stairs Pt required v/c when descending stairs to remain close to hand railing for safety as he kep t stepping away from it, SBA for rails, no LOB Number of Stairs: 12 Handrail Location: right side (ascending) Level of [place]: stand by assist Assistive Device: 1 rail Technique Used: step over step (ascending), step to step (descending) Safety Issues: balance decreased during turns, weight-shifting ability decreased Impairments: impaired balance, coordination impaired, impaired vision, motor control impair ed, sensory feedback impaired Balance Decreased stability with dynamic balance when moving quickly, but with v/c to move slow and controlled, pt has improved balance Sitting Balance: Static: normal balance Sitting Balance: Dynamic: normal balance Standing Balance: Static: good balance Standing Balance: Dynamic: other (see comments)(fair+) Therapeutic Exercise neuro re-ed and balance Balance exercises: Static bilateral SLS on airex with v/c and tactile cues for upright post ure and body alignment. Dynamic bilateral SLS on airex with v/c: forward, lateral and hot oiler ior taps. Use of mirror throughout for visual feedback. Repetitions: 5-10 sec holds x3 bilaterally for static balance, 10 taps all directions for dynamic balance Functional Endurance good for activities presented ROM L LE ROM: WFL R LE ROM: WFL Strength L LE Strength: grossly graded 4+/5 R LE Strength: grossly 5/5 PT Goal Review Date Most Recent Value STG Review Date 04/18/20 at 04/11/2020 1108 LTG Review Date 04/25/20 at 04/11/2020 1108 Ugmglp-Puy-Nnzozx Goal Most Recent Value STG Status met at 04/14/2020 0935 STG [place] Level supervised at 04/11/2020 1108 STG Assistive Device none at 04/11/2020 1108 LTG Status met at 04/14/2020 0935 LTG [place] Level modified independent at 04/11/2020 1108 LTG Assistive Device none at 04/11/2020 1108 Mrz-Camrn-Qug Goal Most Recent Value STG Status met at 04/15/2020 1345 STG [place] Level supervised at 04/11/2020 1108 STG Assistive Device none at 04/11/2020 1108 LTG Status progressing at 04/16/2020 1202 LTG [place] Level modified independent at 04/11/2020 1108 LTG Assistive Device none at 04/11/2020 1108 Gait Goal Most Recent Value STG Status met at 04/14/2020 0935 STG [place] Level stand by assist at 04/11/2020 1108 STG Assistive Device none at 04/11/2020 1108 STG Distance (feet) 300' at 04/11/2020 1108 LTG Status progressing at 04/16/2020 1717 LTG [place] Level supervised at 04/11/2020 1108 LTG Assistive Device none at 04/11/2020 1108 LTG Distance (feet) > 1,000' at 04/15/2020 1345 LTG Comments for community mobility at 04/15/2020 1345 Stair Goal Most Recent Value STG Status progressing at 04/17/2020 0952 STG [place] Level supervised at 04/11/2020 1108 STG Assistive Device 2 rails at 04/11/2020 1108 STG Number of Stairs 12 at 04/11/2020 1108 LTG Status new at 04/11/2020 1108 LTG [place] Level modified independent at 04/11/2020 1108 LTG Assistive Device 2 rails at 04/11/2020 1108 LTG Number of Stairs 12 at 04/11/2020 1108 Additional Goal #1 PT Most Recent Value STG Status progressing at 04/16/2020 1202 STG Pt will demonstrate improve DGI score to 15/24 to reduce fall risk. at 04/11/2020 1108 LTG Status new at 04/11/2020 1108 LTG Improve DGI score to >19/24 to reduce fall rsik. at 04/11/2020 1108 Electronically signed by: Anay Taylor PTA Student, 04/17/2020 11:53 AMElectronically sig holly by Darby Rutherford PTA at 04/17/2020 12:06 PM PDT Associated attestation - Darby Rutherford PTA - 04/17/2020 12:06 PM PDTPortions of the hayley luation data modeler were performed and entered by Anay Taylor, Physical Therapist Studio Owner Student, under the direct supervision of Clinical Instructing Ness Physical Therapist Marlee lundberg. I have reviewed this documentation and agree w/ the treatment provided. Adequate supervision was given and correct CPT codes have been entered. Electronically signed by: Darby Rutherford, BELT CONVEYOR DRIER 04/17/2020 12:05 PM Plan of Care - Gini Myers, PT - 04/17/2020 8:55 AM PDTFormatting of this note might be different from the or iginal. IRF Physical Therapy Plan of Care Re-Assessment Note Summary: Efren seen for therapy re-assessment following GLF this AM. He reports that he arriaga d to go to the bathroom urgently so he got himself to the side of the bed. He then waited f or staff and stood quickly then fell to his knees and hit his head while catching himself. Strength is grossly WFL, some delayed initiation of movements, but strength unchanged. Heal to espinal unchanged. SBA for sit to stand and gait in room for safety. Resume POC. Physical Therapy Discharge Recommendations are: Recommended discharge disposition: home with assist Post discharge physical therapy recommendation: outpatient therapy Equipment Recommendations: none Planned Interventions: balance training, bed mobility training, gait training, home exerci se program, patient/family education, strengthening, transfer training, stair training, chay r coordination training, neuromuscular re-education Frequency: daily(1-2x/day, IRF) Patient Status/Goals: Reflects last filed data and may be from multiple contributors. PT Goal Review Date Most Recent Value STG Review Date 04/18/20 at 04/11/2020 1108 LTG Review Date 04/25/20 at 04/11/2020 1108 Merarc-Wpi-Hysjlr Goal Most Recent Value STG Status met at 04/14/2020 0935 STG [place] Level supervised at 04/11/2020 1108 STG Assistive Device none at 04/11/2020 1108 LTG Status met at 04/14/2020 0935 LTG [place] Level modified independent at 04/11/2020 1108 LTG Assistive Device none at 04/11/2020 1108 Dvd-Omgts-Lvc Goal Most Recent Value STG Status met at 04/15/2020 1345 STG [place] Level supervised at 04/11/2020 1108 STG Assistive Device none at 04/11/2020 1108 LTG Status progressing at 04/16/2020 1202 LTG [place] Level modified independent at 04/11/2020 1108 LTG Assistive Device none at 04/11/2020 1108 Gait Goal Most Recent Value STG Status met at 04/14/2020 0935 STG [place] Level stand by assist at 04/11/2020 1108 STG Assistive Device none at 04/11/2020 1108 STG Distance (feet) 300' at 04/11/2020 1108 LTG Status progressing at 04/16/2020 1717 LTG [place] Level supervised at 04/11/2020 1108 LTG Assistive Device none at 04/11/2020 1108 LTG Distance (feet) > 1,000' at 04/15/2020 1345 LTG Comments for community mobility at 04/15/2020 1345 Stair Goal Most Recent Value STG Status progressing at 04/16/2020 1717 STG [place] Level supervised at 04/11/2020 1108 STG Assistive Device 2 rails at 04/11/2020 1108 STG Number of Stairs 12 at 04/11/2020 1108 LTG Status new at 04/11/2020 1108 LTG [place] Level modified independent at 04/11/2020 1108 LTG Assistive Device 2 rails at 04/11/2020 1108 LTG Number of Stairs 12 at 04/11/2020 1108 Additional Goal #1 PT Most Recent Value STG Status progressing at 04/16/2020 1202 STG Pt will demonstrate improve DGI score to 15/24 to reduce fall risk. at 04/11/2020 1108 LTG Status new at 04/11/2020 1108 LTG Improve DGI score to >19/24 to reduce fall rsik. at 04/11/2020 1108 Electronically signed by: Gini Myers, PT, 04/17/2020 8:56 AM lan of Care - Ce Walker RN - 04/17/20 20 4:54 AM PDT Problem: Adult Inpatient Plan of Care Goal: [...] Fall and Fall-Related Injury Outcome: Ongoing, progressing Problem: Adjustment to Illness (Stroke, Ischemic/Transient Ischemic Attack) Goal: Optimal Coping Outcome: Ongoing, progressing Problem: Bowel Elimination Impaired (Stroke, Ischemic/Transient Ischemic Attack) Goal: Effective Bowel Elimination Outcome: Ongoing, progressing Problem: Cerebral Tissue Perfusion Risk (Stroke, Ischemic/Transient Ischemic Attack) Goal: Optimal Cerebral Tissue Perfusion Outcome: Ongoing, progressing Problem: Eating/Swallowing Impairment (Stroke, Ischemic/Transient Ischemic Attack) Goal: Oral Intake without Aspiration Outcome: Ongoing, progressing Problem: Functional Ability Impaired (Stroke, Ischemic/Transient Ischemic Attack) Goal: Optimal Functional Ability Outcome: Ongoing, progressing Problem: Pain (Stroke, Ischemic/Transient Ischemic Attack) Goal: Acceptable Pain Control Outcome: Ongoing, progressing Problem: Urinary Elimination Impaired (Stroke, Ischemic/Transient Ischemic Attack) Goal: Effective Urinary Elimination Outcome: Ongoing, progressing Problem: Discharge Planning Goal: Patient's discharge needs will be identified in a timely manner Outcome: Ongoing, progressing Goal: Patient will be discharged in a safe manner Outcome: Ongoing, progressing Problem: Self-Care Deficit Goal: Improved Ability to Complete Activities of Daily Living Outcome: Ongoing, progressing Problem: Mobility Impairment Goal: Optimal Mobility Outcome: Ongoing, progressing Problem: Cognitive Impairment Goal: Optimal Functional [place] Outcome: Ongoing, progressing Problem: Skin Injury Risk Increased Goal: Skin Health and Integrity Outcome: Ongoing, progressing No changes noted in neuro status since fall this evening. Calls appropriately and takes hi s time in moving from sitting to standing position. Continues w/mild lt facial droop. Finger /nose off very slightly but self corrects. Mild weakness lt arm/leg. Numbness present lt arm /leg. He continues to be forgetful, requires frequent reminders of tasks recently accomplish ed. Ambulates w/cga for safety. Lt neglect continues. Had one urine accident during the t. Requires cueing to visiting nurse front of toilet when voiding or he misses toilet completely. He specifically requested to go for walk before bedtime but when offered he declinedElectro nically signed by Ce Walker RN at 04/17/2020 5:02 AM PDTPlan of Care - Phillip Valero ea, PTA - 04/16/2020 5:17 PM PDTFormatting of this note might be different from the origi nal. Physical Therapy Plan of Care Treatment Note Summary: Efren has been participating in physical therapy for treatment of Impaired balance , gait instability, impaired vision, coordination and sensation on (L) side following CVA . 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 Emphasis of session included neuro re-ed and path finding. Patient demonstrates progres s towards functional goals as evidenced by pt demo's able to path find from his room to gym and back with moderate v/c vs [id number] instructions needed during AM session. Will monit or for carryover. RN cleared patient for participation in therapy. Patient was agreeable to therapy. Patient participated without adverse reaction. RN debriefed on therapy session and patient status. P atient is encouraged to ambulate into hallway with nursing staff. It is encouraged that the patient be up in chair for all meals. Recommended mobility with nursing: Day Night into the bathroom into the bathroom No Assistive Device No Assistive Device stand by assistance stand by assistance Remaining barriers to discharge and functional limitations include decreased insight into s afety and deficits, decreased functional activity tolerance, decreased functional transfers, decreased gait velocity, stairs at home, not yet able to mobilize at level safe for home luanne martínez [facility] indicating significant impairment with basic functional mobility, and medical status. Efren will benefit from continued therapeutic intervention to address ongoing impairments an d increase safety and independence with activities necessary for safe discharge. Refer jean-pierre valle for specific details regarding functional levels. Physical Therapy Discharge Recommendations are: Recommended discharge disposition: home with assist Post discharge physical therapy recommendation: outpatient therapy Equipment Recommendations: none Planned Interventions: balance training, bed mobility training, gait training, home exerci se program, patient/family education, strengthening, transfer training, stair training, chay r coordination training, neuromuscular re-education Recommended Frequency: daily(1-2x/day, IRF) Patient Status/Goals: Reflects last filed data and may be from multiple contributors. Gait path finding and scanning to left; pt with good heel strike carryover in gt pattern, pt sta singh several times "I need to scan left" however still missed things on his left Level of [place]: stand by assist, verbal cues required Assistive Device: none Distance (feet): 1000 Gait Deviations: stride width increased Safety Issues: balance decreased during turns Impairments: impaired balance, coordination impaired, motor control impaired, sensory feedb ack impaired, impaired vision, postural control impaired Stairs increased time/effort d/t impaired vision and depth perception, no LOB; SBA with use of morton ls, CGA for no rails Number of Stairs: 12 Handrail Location: right side (ascending) Level of [place]: stand by assist Assistive Device: 1 rail, none Technique Used: step to step (ascending), step to step (descending) Safety Issues: balance decreased during turns, weight-shifting ability decreased Impairments: impaired balance, coordination impaired, motor control impaired, impaired visi on, sensory feedback impaired Transfers supervision for general safety; intermittent cues to attend to left side and safety Bed-Chair, Level of [place]: supervised, verbal cues required Chair-Bed, Level of [place]: supervised, verbal cues required [id number], Assistive Device: none Sit-Stand, Level of [place]: supervised, verbal cues required Stand-Sit, Level of [place]: supervised, verbal cues required [id number], Assistive Device: none Safety Issues: step length decreased, weight-shifting ability decreased, sequencing ability decreased, balance decreased during turns Impairments: impaired balance, impaired vision, sensation decreased, motor control impaired , coordination impaired, postural control impaired Bed Mobility pt demo'd Mod I for all bed mobility; light use of rails when turning Assistive Device: bed rails Roll Left, Level of [place]: modified independent Roll Right, Level of [place]: modified independent Scoot/Bridge, Level of [place]: modified independent Supine to Sit, Level of [place]: modified independent Sit to Supine, Level of [place]: modified independent Impairments: impaired vision Balance Sitting Balance: Static: normal balance Sitting Balance: Dynamic: normal balance Standing Balance: Static: good balance Standing Balance: Dynamic: good balance Therapeutic Exercise neuro re-ed and balance Functional Exercises: quadriped mat work; static alterinating arms just arms; alterninating just legs, min assist for postures and leg extension Functional Endurance good for activities complete PT Goal Review Date Most Recent Value STG Review Date 04/18/20 at 04/11/2020 1108 LTG Review Date 04/25/20 at 04/11/2020 1108 Lukawf-Kpr-Kygnle Goal Most Recent Value STG Status met at 04/14/2020 0935 STG [place] Level supervised at 04/11/2020 1108 STG Assistive Device none at 04/11/2020 1108 LTG Status met at 04/14/2020 0935 LTG [place] Level modified independent at 04/11/2020 1108 LTG Assistive Device none at 04/11/2020 1108 Chp-Vwbrd-Dvs Goal Most Recent Value STG Status met at 04/15/2020 1345 STG [place] Level supervised at 04/11/2020 1108 STG Assistive Device none at 04/11/2020 1108 LTG Status progressing at 04/16/2020 1202 LTG [place] Level modified independent at 04/11/2020 1108 LTG Assistive Device none at 04/11/2020 1108 Gait Goal Most Recent Value STG Status met at 04/14/2020 0935 STG [place] Level stand by assist at 04/11/2020 1108 STG Assistive Device none at 04/11/2020 1108 STG Distance (feet) 300' at 04/11/2020 1108 LTG Status progressing at 04/16/2020 1717 LTG [place] Level supervised at 04/11/2020 1108 LTG Assistive Device none at 04/11/2020 1108 LTG Distance (feet) > 1,000' at 04/15/2020 1345 LTG Comments for community mobility at 04/15/2020 1345 Stair Goal Most Recent Value STG Status progressing at 04/16/2020 1717 STG [place] Level supervised at 04/11/2020 1108 STG Assistive Device 2 rails at 04/11/2020 1108 STG Number of Stairs 12 at 04/11/2020 1108 LTG Status new at 04/11/2020 1108 LTG [place] Level modified independent at 04/11/2020 1108 LTG Assistive Device 2 rails at 04/11/2020 1108 LTG Number of Stairs 12 at 04/11/2020 1108 Additional Goal #1 PT Most Recent Value STG Status progressing at 04/16/2020 1202 STG Pt will demonstrate improve DGI score to 15/24 to reduce fall risk. at 04/11/2020 1108 LTG Status new at 04/11/2020 1108 LTG Improve DGI score to >19/24 to reduce fall rsik. at 04/11/2020 1108 Electronically signed by: Dusty Valero PTA, 04/16/2020 5:40 PM lan of Martha - Yenni Jiménez RN - 03/29 4:51 PM PDT Problem: Adult Inpatient Plan of Care Goal: [...] Fall and Fall-Related Injury Outcome: Ongoing, progressing Problem: Adjustment to Illness (Stroke, Ischemic/Transient Ischemic Attack) Goal: Optimal Coping Outcome: Ongoing, progressing Problem: Bowel Elimination Impaired (Stroke, Ischemic/Transient Ischemic Attack) Goal: Effective Bowel Elimination Outcome: Ongoing, progressing Problem: Cerebral Tissue Perfusion Risk (Stroke, Ischemic/Transient Ischemic Attack) Goal: Optimal Cerebral Tissue Perfusion Outcome: Ongoing, progressing Problem: Eating/Swallowing Impairment (Stroke, Ischemic/Transient Ischemic Attack) Goal: Oral Intake without Aspiration Outcome: Ongoing, progressing Problem: Functional Ability Impaired (Stroke, Ischemic/Transient Ischemic Attack) Goal: Optimal Functional Ability Outcome: Ongoing, progressing Problem: Pain (Stroke, Ischemic/Transient Ischemic Attack) Goal: Acceptable Pain Control Outcome: Ongoing, progressing Problem: Urinary Elimination Impaired (Stroke, Ischemic/Transient Ischemic Attack) Goal: Effective Urinary Elimination Outcome: Ongoing, progressing Problem: Discharge Planning Goal: Patient's discharge needs will be identified in a timely manner Outcome: Ongoing, progressing Goal: Patient will be discharged in a safe manner Outcome: Ongoing, progressing Problem: Self-Care Deficit Goal: Improved Ability to Complete Activities of Daily Living Outcome: Ongoing, progressing Problem: Mobility Impairment Goal: Optimal Mobility Outcome: Ongoing, progressing Problem: Cognitive Impairment Goal: Optimal Functional [place] Outcome: Ongoing, progressing Problem: Skin Injury Risk Increased Goal: Skin Health and Integrity Outcome: Ongoing, progressing Efren is A&Ox4, calling out appropriately. No c/o pain t/o shift. C/o occ anxiety, rx clonaz epam and/or xanax given for anxiety. Ambulating w sba but requires cues on looking to left r /t some peripheral vision loss. 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 LBM /, rx given. Eating 100 % meals w/o difficulties. lan of Care - Maria Guo MSW - 04/16/2020 3:11 PM PDTInitial IRF Discharge Planning Biodiesel Technology Manager met with Efren in Room 332 to begin discharge planning. Efren's goal is to return to his home in [place], [place] with his , Susie, as his main caregiver support. Current Living Situation Efren reported that he lives in a single level 2 bedroom home with his in [place], [place] . OUTSIDE OF HOME There are 4 to 5 steps leading up to the front door. There are railings on both sides as he enters the front steps and his indicated that karis gomez also have a ramp [facility] to assist with Efren entering the home th rough the back. INSIDE THE HOME There are 2 bedrooms and Efren will be staying in the bedroom that he shares with his . There is 1 bathroom and it is in close proximity to Efren's bedroom. There is a shower/tub combo with a hand held shower head and a shower seat. Efren indicated that are no grab bars currently and he feels a tub transfer bench would assist with his sta bility if bars cannot be installed. There are no additional stairs within the home Prior Activity Level Efren was moderately active, completing most ADL's independently. Support Situation Efren's main supports are his , Susie, and [facility]. Prior DME Efren currently has no other known DME at this time. Efren does feel that he could utilize a transfer pole, tub transfer bench, toilet seat riser, bed railing, and lever door handles wi thin his home. .Electronically signed by: GRAYSON Keating 04/16/2020 3:20 PM lan of Martha - Tia Guillen, Speech Pathologist - 04/16/2020 2:15 PM PDT [facility] Speech Therapy Plan of Care Treatment Note Summary: Efren has been participating in speech therapy for treatment of Moderate to sever quoc impaired immediate and delayed memory. Left visual field inattention with reminders need ed to attend to left visual space. . Emphasis of session included left visual inattention, episodic recall, use of memory book. Patient demonstrates progress towards functional goals as evidenced by subjectively improved recall, using strategies to attend left indep. Leonardo arce barriers to Cognition include prior cog impairment. Efren will benefit from continued therapeutic intervention to address ongoing impairments an d increase safety and independence. Refer below for specific details regarding specifics of session and impairments. Speech Language Pathology Discharge Recommendations are: Recommended discharge disposition: home with family/caregiver Post discharge speech language pathology recommendation: continue SAND WORKER tx for cognitive-dillon guistic, outpatient therapy Planned Interventions: compensatory strategies, memory, executive function skills, reading , cognitive stimulation, writing, other (see comments)(functional reading tasks) Recommended Frequency: 5 times/wk Cognitive Recall 4/5 facts from recent OT sessions indep Min cues needed to use memory book Verbalized indep importance of looking left and working on left attention, forcing himself to use left hand Aware of going to fast during OT/PT activities Needs cognitive reassessment Discussion depth perception difficulty and problem solved scenarios at home where this cou ld be a problem- pt able to ID problems and provide solutions with min cues Picture description to indep attend to all quadrants of 1 minute in duration -Attended to left upper quadrant but not to left lower quadrant, did so with min cues in 2 instances Copy of drawing -Pt indep attended first to images on left side, but evident deficits with depth perceptio n noted, Needed extra time to attend to image on far left but did so indep A Cognition Goal Most Recent Value STG Status progressing at 04/15/2020 1339 STG Pt will recall to use memory book to compensate for episodic memory impairment with m in cues from SAND WORKER in 3 consecutive sessions. at 04/15/2020 1339 Additional Goals #1 SAND WORKER Most Recent Value STG Status met at 04/14/2020 1430 STG Pt will verbally name 10 items in room from left space to target left visual neglect i ndep. at 04/12/2020 1224 LTG Status progressing at 04/15/2020 1339 LTG Pt will complete functional reading tasks with 4/5 success on independent use of scann ing strateges e.g. recalling to scall all the way to left at 04/15/2020 1339 Additional Goals #2 SAND WORKER Most Recent Value STG Status progressing at 04/15/2020 1339 STG Patient will use self selected compensatory strategy during structured immediate memor y tasks in 4/5 opportunities with mod cues from SAND WORKER. at 04/15/2020 1339 Additional Goals #3 SAND WORKER Most Recent Value STG Status progressing at 04/15/2020 1339 STG Patient will participate in education of compensatory strategies for improved STM at 0 04/15/2020 1339 LTG Status continued at 04/12/2020 1224 LTG Patient will utilize compensatory strategies for improved recall 4/5 opportunities ove r 3 consecutive sessions and min cues at 04/12/2020 1224 Electronically signed by: Tia Guillen, Speech Pathologist, 04/16/2020 2:15 PMElect ronically signed by Tia Guillen Speech Pathologist at 04/16/2020 2:20 PM PDTPlan of Care - jaxon Au, Namita R TONEY - 04/16/2020 2:05 PM PDT IRF Occupational Therapy Plan of Care Treatment Note Summary: Efren has been participating in occupational therapy for treatment of decreased sa fety/capacity for indep with ADLs, IADLs, functional mobility/tfs following admission after Ischemic cerebrovascular accident (CVA) . Emphasis of session included BP check prior to sh ower and UB/LB dressing. Patient demonstrates progress towards functional goals as evidence d by his ongoing participation towards his OT goals. Patient was agreeable to therapy. Patient participated without adverse reaction. It is enco uraged that the patient be up in chair for all meals. Recommended toileting with nursing: Day Night toilet toilet No Assistive Device No Assistive Device supervision / set-up stand by assistance supervision / set-up stand by assistance Remaining barriers to discharge and functional limitations include decreased insight into s afety and deficits, decreased functional activity tolerance, decreased functional transfers, decreased ability to perform ADLs, decreased ability to perform IADLs, decreased ability to perform medication management, not yet able to mobilize at level safe for home discharge, a nd medical status. Efren will benefit from continued therapeutic intervention to address ongoing impairments an d increase safety and independence with activities necessary for safe discharge. Refer jean-pierre valle for specific details regarding functional levels. Occupational Therapy Discharge Recommendations are: Recommended discharge disposition: home with assist Post discharge occupational therapy recommendation: home health, other (see comment), outp atient therapy Equipment Recommendations: sisal operator Planned Interventions:ADL retraining, balance training, fine motor coordination training, f unctional endurance training, motor coordination training, neuromuscular re-education, patie nt/family education, transfer training, visual/perceptual retraining, IADL retraining, bed m obility training, ROM (Range of Motion), strengthening, other (see comments)(sensory) Recommended Frequency: (rehab schedule) BP sittin/58 HR sittin BP standing: (S) 88/55(after short walk 113/71 HR 72) HR standin Patient Status/Goals: Reflects last filed data and may be from multiple contributors. ADLs Pt requested to shower this afternoon. He picked clean clothes out for after bathing. Short walk was needed to meet BP requirements prior to shower for safety. Pt used tub shower, SBA for general safety. VC's for looking to left to initiate use of gra b bar. He was able to wash body and hair with no assist Bathing, Level of [place]: stand by assist, verbal cues required, set up required Assistive Device: grab bars, hand-held shower head, tub bench Bathing Assess/Train, Position: sitting, standing Bathing Impairments: decreased flexibility, sensation decreased, strength decreased, impair ed balance, motor control impaired, impaired vision, impaired functional endurance/activity tolerance Pt doffed clothing prior to shower. VC's to remind pt to thread affected side (L UE) first and for distinguishing between front and back of shirt when donning. UB Dressing, Level of [place]: supervised, set up required, verbal cues required Assistive Device: none UB Dressing Assess/Train, Position: sitting, standing UB Dressing Impairments: sensation decreased, impaired balance, impaired vision, coordinati on impaired, impaired cognition Pt doffed shoes and pants with no assist but needed help getting TEDs off prior to shower. He required assist getting TEDs over toes and heel but was able to pull them up. Was able to don pants/underwear with VC's for distinguishing between front and back. He managed to don shoes and tie them by putting feet up on stool. LB Dressing, Level of [place]: supervised, set up required, verbal cues required Assistive Device: none LB Dressing Assess/Train, Position: sitting, standing LB Dressing Impairments: impaired vision, decreased flexibility, coordination impaired, mot or control impaired, sensation decreased, impaired functional endurance/activity tolerance, impaired balance, ROM decreased Pt declined toileting this session. Toileting, Level of [place]: not tested Assistive Device: none Toileting Assess/Train, Position: standing Toileting Impairments: impaired vision, coordination impaired, impaired functional enduranc e/activity tolerance, sensation decreased Pt stood at sink and combed his hair. Grooming, Level of [place]: set up required, stand by assist Assistive Device: none Grooming Assess/Train, Position: standing Grooming Impairments: coordination impaired, impaired vision, sensation decreased, impaired balance Transfers Supervision for general safety, requires some VC's to look left before action. Sit-Stand, Level of [place]: supervised Stand-Sit, Level of [place]: supervised, verbal cues required [id number], Assistive Device: none Tub, Level of [place]: stand by assist, verbal cues required, set up required Tub, Assistive Device: grab bars, shower chair Safety Issues: step length decreased, weight-shifting ability decreased, sequencing ability decreased, balance decreased during turns Impairments: impaired balance, impaired vision, sensation decreased, motor control impaired , coordination impaired, postural control impaired OT Goal Review Date Most Recent Value STG Review Date 04/18/20 at 04/11/2020 0922 LTG Review Date 04/25/20 at 04/11/2020 0922 Grooming Goal Most Recent Value STG Status met at 04/13/2020 1210 STG [place] Level supervised at 04/11/2020 0922 STG Position standing at 04/11/2020 0922 STG Adaptive Equipment none at 04/11/2020 0922 LTG Status progressing at 04/16/2020 1405 LTG [place] Level modified independent at 04/11/2020 0922 LTG Position standing at 04/11/2020 0922 LTG Adaptive Equipment none at 04/11/2020 0922 Bathing Goal Most Recent Value STG Status progressing at 04/16/2020 1405 STG [place] Level supervised, set up required, verbal cues required at 04/11/2020 092 2 STG Adaptive Equpiment grab bars, shower head, detachable, sponge, long handled, shower ch air, shower chair with back at 04/11/2020 0922 STG Position sitting, standing at 04/11/2020 0922 LTG Status progressing at 04/16/2020 1405 LTG [place] Level modified independent at 04/11/2020 0922 LTG Adaptive Equpiment grab bars, shower head, detachable, sponge, long handled, shower ch air, shower chair with back at 04/11/2020 0922 LTG Position sitting, standing at 04/11/2020 0922 UB Dressing Goal Most Recent Value STG Status met at 04/12/2020 1158 STG [place] Level supervised, set up required, verbal cues required at 04/11/2020 092 2 STG Adaptive Equipment none at 04/11/2020 0922 LTG Status progressing at 04/16/2020 1405 LTG [place] Level modified independent at 04/11/2020 0922 LTG Adaptive Equipment none at 04/11/2020 0922 LTG Comments including clothing retrieval at 04/12/2020 1158 LB Dressing Goal Most Recent Value STG Status progressing at 04/16/2020 1405 STG [place] Level supervised, set up required, verbal cues required at 04/11/2020 092 2 STG Adaptive Equipment sock-aid, shoe horn, long handled, sisal operator at 04/11/2020 0922 LTG Status progressing at 04/16/2020 1405 LTG [place] Level modified independent at 04/11/2020 0922 LTG Adaptive Equipment shoe horn, long handled, sock-aid, sisal operator at 04/11/2020 0922 LTG Comments including clothing retrieval at 04/12/2020 1158 Toileting Goal Most Recent Value STG Status met at 04/13/2020 1210 STG [place] Level supervised, set up required, verbal cues required at 04/11/2020 092 2 STG Assistive Device grab bar at 04/11/2020 0922 LTG Status progressing at 04/16/2020 1405 LTG [place] Level modified independent at 04/11/2020 0922 LTG Assistive Device grab bar at 04/11/2020 0922 Toilet Transfer Goal Most Recent Value STG Status met at 04/13/2020 1210 STG [place] Level supervised, set up required, verbal cues required at 04/11/2020 092 2 STG Assistive Device grab bars at 04/11/2020 0922 LTG Status progressing at 04/16/2020 1405 LTG [place] Level modified independent at 04/11/2020 0922 LTG Assistive Device grab bars at 04/11/2020 0922 Tub/Shower Transfer Goal Most Recent Value Tub/Shower Type tub/shower combo at 04/11/2020 0922 STG Status progressing at 04/16/2020 1405 STG [place] Level supervised, set up required, verbal cues required at 04/11/2020 092 2 STG Assistive Device grab bars, shower chair at 04/11/2020921 LTG Status progressing at 04/16/2020 1405 LTG [place] Level modified independent at 04/11/2020921 LTG Assistive Device grab bars, shower chair at 04/11/2020921 IADL Goal Most Recent Value STG Status new at 04/11/2020921 STG Pt will be supervision vcs setup prn for meal preparation task at 04/11/2020921 LTG Status new at 04/11/2020921 LTG Pt will be Mod I for meal preparation task at 04/11/2020921 Vision Goal Most Recent Value STG Status progressing at 04/16/2020 1032 STG Pt will participate in eye exercises to increase ocular alignment, initiate saccadic e ye motion, increase VOR with eye focusing, and decrease diplopia as well as increase depth p erception and spatial relations to improve visual functions for ADLs, functional mobility/tf s. at 04/11/2020921 LTG Status progressing at 04/15/2020 0830 LTG Pt will report improvements to visual deficits impact on ADLs and utilize visual compe nsatory strategies indep at 04/11/2020921 Additional Goals #1 OT Most Recent Value STG Status progressing at 04/16/2020 1032 STG Pt will participate in tasks to increase/improve LUE sensation and coordination. at 0 04/11/2020921 LTG Status revised, new at 04/12/2020 1158 LTG Pt L hand fine motor coordination will be improved as evidenced by L hand performance on the 9 hole peg test in 90 seconds or less. at 04/12/2020 1158 Additional Goals #2 OT Most Recent Value STG Status progressing at 04/15/2020 0830 Electronically signed by: DAWNA Solares, 04/16/2020 2:44 PM lan of Care - Dusty Valero, BELT CONVEYOR DRIER - 04/16/2020 12:02 PM PDT IRF Physical Therapy Plan of Care Treatment Note Summary: Efren has been participating in physical therapy for treatment of Impaired balance , gait instability, impaired vision, coordination and sensation on (L) side following CVA . 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 Emphasis of session included floor recovery and neuro re-ed. Patient demonstrates progr ess towards functional goals as evidenced by pt was able to verbalize and return demo for fl oor recovery. RN cleared patient for participation in therapy. Patient was agreeable to therapy. Patient participated without adverse reaction. RN debriefed on therapy session and patient status. I t is encouraged that the patient be up in chair for all meals. Recommended mobility with nursing: Day Night into the bathroom into the bathroom No Assistive Device No Assistive Device stand by assistance stand by assistance Remaining barriers to discharge and functional limitations include decreased functional act ivity tolerance, decreased functional transfers, decreased functional gait distance, decreas ed gait velocity, not able to navigate stairs, demonstrating need for 24/7 supervision, not yet able to mobilize at level safe for home discharge, AMPAC indicating significant impairme nt with basic functional mobility, and medical status Efren will benefit from continued therapeutic intervention to address ongoing impairments an d increase safety and independence with activities necessary for safe discharge. Refer jean-pierre valle for specific details regarding functional levels. Physical Therapy Discharge Recommendations are: Recommended discharge disposition: home with assist Post discharge physical therapy recommendation: outpatient therapy Equipment Recommendations: none Planned Interventions: balance training, bed mobility training, gait training, home exerci se program, patient/family education, strengthening, transfer training, stair training, chay r coordination training, neuromuscular re-education Frequency: daily(1-2x/day, IRF) Patient Status/Goals: Reflects last filed data and may be from multiple contributors. Bed Mobility NT during AM session Transfers Supervision for general safety; requires intermittent cues for L side attention; pt verbali zed and returned demo for floor recovery Sit-Stand, Level of [place]: supervised Stand-Sit, Level of [place]: supervised [id number], Assistive Device: none Toilet, Level of [place]: supervised(standing void) Toilet, Assistive Device: grab bars Safety Issues: step length decreased, weight-shifting ability decreased, sequencing ability decreased, balance decreased during turns Impairments: impaired balance, impaired vision, sensation decreased, motor control impaired , coordination impaired, postural control impaired Gait gt training: path finding, balance and heel strike; pt self correcting verbalizing out loud "I got to scan left" Level of [place]: stand by assist, verbal cues required Assistive Device: none Distance (feet): 450 Gait Deviations: stride width increased Safety Issues: balance decreased during turns Impairments: impaired balance, coordination impaired, motor control impaired, sensory feedb ack impaired, impaired vision, postural control impaired Balance slgiht improvments with level surfaces within hospital Sitting Balance: Static: normal balance Sitting Balance: Dynamic: normal balance Standing Balance: Static: good balance Standing Balance: Dynamic: good balance Therapeutic Exercise neuro re-ed and balance Seated exercises: other (see comments)(Seated on green ball w/ stabilizer under. Reaching o utside Srinivas cross body high and low) Repetitions: x10 each side Standing exercises: with UE support(standing on 1 leg (L)) Repetitions: 4-5 sec. x 4 Balance exercises: narrow base of support, walk forward, walk backwards, turn 180 degrees, distractible environment, tandem walk forward Repetitions: 3 x15 sec for each single LE stance. 20 repetitions of throws in clock co nfiguration infront of pt. Neuromuscular Reeducation: coordination ex, frenkels on the mat (L) hip flex, abd, bent kne e fall out x 5 with emphasis on looking at the leg. Functional Endurance good for activiites completed PT Goal Review Date Most Recent Value STG Review Date 04/18/20 at 04/11/2020 1108 LTG Review Date 04/25/20 at 04/11/2020 1108 [id number] Goal Most Recent Value STG Status met at 04/14/2020 0935 STG [place] Level supervised at 04/11/2020 1108 STG Assistive Device none at 04/11/2020 1108 LTG Status met at 04/14/2020 0935 LTG [place] Level modified independent at 04/11/2020 1108 LTG Assistive Device none at 04/11/2020 1108 [id number] Goal Most Recent Value STG Status met at 04/15/2020 1345 STG [place] Level supervised at 04/11/2020 1108 STG Assistive Device none at 04/11/2020 1108 LTG Status progressing at 04/16/2020 1202 LTG [place] Level modified independent at 04/11/2020 1108 LTG Assistive Device none at 04/11/2020 1108 Gait Goal Most Recent Value STG Status met at 04/14/2020 0935 STG [place] Level stand by assist at 04/11/2020 1108 STG Assistive Device none at 04/11/2020 1108 STG Distance (feet) 300' at 04/11/2020 1108 LTG Status progressing at 04/16/2020 1202 LTG [place] Level supervised at 04/11/2020 1108 LTG Assistive Device none at 04/11/2020 1108 LTG Distance (feet) > 1,000' at 04/15/2020 1345 LTG Comments for community mobility at 04/15/2020 1345 Stair Goal Most Recent Value STG Status progressing at 04/15/2020 1345 STG [place] Level supervised at 04/11/2020 1108 STG Assistive Device 2 rails at 04/11/2020 1108 STG Number of Stairs 12 at 04/11/2020 1108 LTG Status new at 04/11/2020 1108 LTG [place] Level modified independent at 04/11/2020 1108 LTG Assistive Device 2 rails at 04/11/2020 1108 LTG Number of Stairs 12 at 04/11/2020 1108 Additional Goal #1 PT Most Recent Value STG Status progressing at 04/16/2020 1202 STG Pt will demonstrate improve DGI score to 15/24 to reduce fall risk. at 04/11/2020 1108 LTG Status new at 04/11/2020 1108 LTG Improve DGI score to >19/24 to reduce fall rsik. at 04/11/2020 1108 Electronically signed by: Dusty Valero PTA, 04/16/2020 1:33 PM lan of Care - Dwayne Ibarra, OT - 0 04/16/2020 10:32 AM PDT IRF Occupational Therapy Plan of Care Treatment Note Summary: Efren has been participating in occupational therapy for treatment of decreased s afety/capacity for indep with ADLs, IADLs, functional mobility/tfs following admission after Ischemic cerebrovascular accident (CVA) . Emphasis of session included grooming, toileting , donning/doffing footwear, functional mobility and transfers with attention to L side throu ghout activities, IADL laundry activity, functional balance activities, assessment of vision , LUE ROM/coordination. Patient demonstrates progress towards functional goals as evidenced by participation throughout session, very motivated. BP's assessed at beginning of session: BP sittin/64(BK TEDs) HR sittin BP standin/59(BK TEDs, asymptomatic) HR standin BP assessed after activity: Vitals with Comments 04/16/2020 SYSTOLIC 112 DIASTOLIC 67 BP Comments BK TEDs, after activity Pulse 58 RN cleared patient for participation in therapy. Patient was agreeable to therapy. Patient participated without adverse reaction. RN debriefed on therapy session and patient status. P atient is encouraged to ambulate into hallway with nursing staff. It is encouraged that the patient be up in chair for all meals. Recommended toileting with nursing: Day Night toilet toilet No Assistive Device No Assistive Device stand by assistance and verbal cues stand by assistance and verbal cues Remaining barriers to discharge and functional limitations include decreased functional tra nsfers, decreased ability to perform ADLs, decreased ability to perform IADLs, not yet able to mobilize at level safe for home discharge and medical status. Efren will benefit from continued therapeutic intervention to address ongoing impairments an d increase safety and independence with activities necessary for safe discharge. Refer jean-pierre valle for specific details regarding functional levels. Occupational Therapy Discharge Recommendations are: Recommended discharge disposition: home with assist Post discharge occupational therapy recommendation: home health, other (see comment), outp atient therapy Equipment Recommendations: sisal operator(Additional equipment TBD) Planned Interventions:ADL retraining, balance training, fine motor coordination training, f unctional endurance training, motor coordination training, neuromuscular re-education, patie nt/family education, transfer training, visual/perceptual retraining, IADL retraining, bed m obility training, ROM (Range of Motion), strengthening, other (see comments)(sensory) Recommended Frequency: (rehab schedule) Patient Status/Goals: Reflects last filed data and may be from multiple contributors. ADLs Pt hopes to shower and change clothes this afternoon. Agreeable to toileting, grooming, and managing footwear this AM. Socks/shoes only this AM. Pt able to doff socks with extra time, leaning forward. Pt able t o don shoes over heels leaning forward, then used commode to prop foot up to tie laces, cues to make L loop and get a good hold on it before proceeding, able to tie both shoe laces wit h success, without assist. LB Dressing, Level of [place]: stand by assist, set up required, verbal cues required Assistive Device: (BSC to prop feet up) LB Dressing Assess/Train, Position: sitting LB Dressing Impairments: impaired vision, decreased flexibility, coordination impaired, mot or control impaired, sensation decreased, impaired functional endurance/activity tolerance, impaired balance Standing void x2 during this session, supervision for general safety Toileting, Level of [place]: supervised Assistive Device: none Toileting Assess/Train, Position: standing Toileting Impairments: impaired vision, coordination impaired, impaired functional enduranc e/activity tolerance, sensation decreased Pt washed his hands, completed oral care, shaved face, and washed hair/face standing at the sink with cues to attend to L side to locate grooming items and for LUE use throughout. Grooming, Level of [place]: verbal cues required, stand by assist Assistive Device: none Grooming Assess/Train, Position: standing Grooming Impairments: coordination impaired, impaired vision, sensation decreased, impaired balance IADLs Pt agreeable to retrieve clothing from dryer, needed cues for wayfinding and attending to L side when ambulating to ensure not running into obstacles. Pt able to retrieve clothing fro m dryer with cues for hand placement for steadying, intermittent CGA when leaning down to re trieve clothes. Challenged pt to carry small laundry basket with clothes back to the room, C GA for safety d/t challenging balance, though no LOB noted. Laundry Training, OT Eval Level Of [place]: Laundry: contact guard assist Physical Assist/Nonphysical Assist: Laundry: verbal cues, set-up required Assistive Device: none Functional Endurance Good for activities completed Cognitive Needs reminders/cues to attend to L side throughout functional activities, at times unable to find items needed for ADLs and "gives up," needs cues to scan environment to locate items . Mood/Behavior: cooperative, calm Arousal Level: opens eyes spontaneously Speech: logical, clear, spontaneous Bed Mobility NT, pt up in chair upon arrival, returned to chair at end of session Transfers Supervision sit>stand without LOB, SBA for stand>sit d/t requiring cues for safe turn to ch air and L side attention. Sit-Stand, Level of [place]: supervised Stand-Sit, Level of [place]: stand by assist [id number], Assistive Device: none Safety Issues: step length decreased, weight-shifting ability decreased, sequencing ability decreased, balance decreased during turns Impairments: impaired balance, impaired vision, sensation decreased, motor control impaired , coordination impaired, postural control impaired ROM WFL, mild pain with L shoulder IR Vision: Vision Comments: Short visual assessment. Noted difficulty with smooth pursuits towards out er L side (up, center, down), R eye WNL, L eye appears to have visual field cut. Vergence: d ifficulty converging eyes together, no reports of double vision out of normal range. L side visual attention with functional mobility, ADLs. Sensation: Pt reports L UB numbness/tingling, specifically to face and arm. Difficulty placing mask ov er L ear d/t sensory deficits, recommended use of mirror for visual feedback. Assessed sharp /dull sensation to LUE, decreased sensation proximally, though unable to determine sharp/dul l consistently throughout LUE. More difficulty with sharp, "pinpoint" sensations LUE Sharp/Dull Discrimination: moderate impairment OT Goal Review Date Most Recent Value STG Review Date 04/18/20 at 04/11/2020 0922 LTG Review Date 04/25/20 at 04/11/2020 0922 Grooming Goal Most Recent Value STG Status met at 04/13/2020 1210 STG [place] Level supervised at 04/11/2020 0922 STG Position standing at 04/11/2020 0922 STG Adaptive Equipment none at 04/11/2020 0922 LTG Status progressing at 04/16/2020 1032 LTG [place] Level modified independent at 04/11/2020 0922 LTG Position standing at 04/11/2020 0922 LTG Adaptive Equipment none at 04/11/2020 0922 Bathing Goal Most Recent Value STG Status progressing at 04/13/2020 1451 STG [place] Level supervised, set up required, verbal cues required at 04/11/2020 092 2 STG Adaptive Equpiment grab bars, shower head, detachable, sponge, long handled, shower ch air, shower chair with back at 04/11/2020 0922 STG Position sitting, standing at 04/11/2020 0922 LTG Status new at 04/11/2020 0922 LTG [place] Level modified independent at 04/11/2020 0922 LTG Adaptive Equpiment grab bars, shower head, detachable, sponge, long handled, shower ch air, shower chair with back at 04/11/2020 0922 LTG Position sitting, standing at 04/11/2020 0922 UB Dressing Goal Most Recent Value STG Status met at 04/12/2020 1158 STG [place] Level supervised, set up required, verbal cues required at 04/11/2020 092 2 STG Adaptive Equipment none at 04/11/2020 0922 LTG Status progressing at 04/15/2020 0830 LTG [place] Level modified independent at 04/11/2020 0922 LTG Adaptive Equipment none at 04/11/2020 0922 LTG Comments including clothing retrieval at 04/12/2020 1158 LB Dressing Goal Most Recent Value STG Status progressing at 04/16/2020 1032 STG [place] Level supervised, set up required, verbal cues required at 04/11/2020 092 2 STG Adaptive Equipment sock-aid, shoe horn, long handled, sisal operator at 04/11/2020 0922 LTG Status progressing at 04/15/2020 0830 LTG [place] Level modified independent at 04/11/2020 0922 LTG Adaptive Equipment shoe horn, long handled, sock-aid, sisal operator at 04/11/2020 0922 LTG Comments including clothing retrieval at 04/12/2020 1158 Toileting Goal Most Recent Value STG Status met at 04/13/2020 1210 STG [place] Level supervised, set up required, verbal cues required at 04/11/2020 092 2 STG Assistive Device grab bar at 04/11/2020 0922 LTG Status progressing at 04/16/2020 1032 LTG [place] Level modified independent at 04/11/2020 0922 LTG Assistive Device grab bar at 04/11/2020 0922 Toilet Transfer Goal Most Recent Value STG Status met at 04/13/2020 1210 STG [place] Level supervised, set up required, verbal cues required at 04/11/2020 092 2 STG Assistive Device grab bars at 04/11/2020 0922 LTG Status progressing at 04/15/2020 0830 LTG [place] Level modified independent at 04/11/2020 0922 LTG Assistive Device grab bars at 04/11/2020 0922 Tub/Shower Transfer Goal Most Recent Value Tub/Shower Type tub/shower combo at 04/11/2020 0922 STG Status progressing at 04/13/2020 1451 STG [place] Level supervised, set up required, verbal cues required at 04/11/2020 092 2 STG Assistive Device grab bars, shower chair at 04/11/2020921 LTG Status new at 04/11/2020921 LTG [place] Level modified independent at 04/11/2020921 LTG Assistive Device grab bars, shower chair at 04/11/2020921 IADL Goal Most Recent Value STG Status new at 04/11/2020921 STG Pt will be supervision vcs setup prn for meal preparation task at 04/11/2020921 LTG Status new at 04/11/2020921 LTG Pt will be Mod I for meal preparation task at 04/11/2020921 Vision Goal Most Recent Value STG Status progressing at 04/16/2020 1032 STG Pt will participate in eye exercises to increase ocular alignment, initiate saccadic e ye motion, increase VOR with eye focusing, and decrease diplopia as well as increase depth p erception and spatial relations to improve visual functions for ADLs, functional mobility/tf s. at 04/11/2020921 LTG Status progressing at 04/15/2020 0830 LTG Pt will report improvements to visual deficits impact on ADLs and utilize visual compe nsatory strategies indep at 04/11/2020921 Additional Goals #1 OT Most Recent Value STG Status progressing at 04/16/2020 1032 STG Pt will participate in tasks to increase/improve LUE sensation and coordination. at 0 04/11/2020921 LTG Status revised, new at 04/12/2020 1158 LTG Pt L hand fine motor coordination will be improved as evidenced by L hand performance on the 9 hole peg test in 90 seconds or less. at 04/12/2020 1158 Additional Goals #2 OT Most Recent Value STG Status progressing at 04/15/2020 0830 Electronically signed by: Dwayne IBARRA OT, 04/16/2020 10:58 AM lan of Martha - Daisy Morrow RN - 04/16/2020 3:36 AM PDTPt [id number] calls for assist bed alarm for safety no falls this shift. Pt with L si de neglect and reduces L eye peripheral vision states dexterity in L hand is improving, tyle nol given for headache with relief. Pt sba to br and using urinal one episode of incontinenc e last night. Pt slept well between care, requested Klonopin last night but states likes his new room. No falls this shift, frequent rounding. lan of Care - Carolyn Gomez RN - 04/15/2020 3:20 PM PDTForm atting of this note might be different from the original. Problem: Adult Inpatient Plan of Care Goal: [...] Fall and Fall-Related Injury Outcome: Ongoing, progressing Problem: Adjustment to Illness (Stroke, Ischemic/Transient Ischemic Attack) Goal: Optimal Coping Outcome: Ongoing, progressing Problem: Bowel Elimination Impaired (Stroke, Ischemic/Transient Ischemic Attack) Goal: Effective Bowel Elimination Outcome: Ongoing, progressing Problem: Cerebral Tissue Perfusion Risk (Stroke, Ischemic/Transient Ischemic Attack) Goal: Optimal Cerebral Tissue Perfusion Outcome: Ongoing, progressing Problem: Eating/Swallowing Impairment (Stroke, Ischemic/Transient Ischemic Attack) Goal: Oral Intake without Aspiration Outcome: Ongoing, progressing Problem: Functional Ability Impaired (Stroke, Ischemic/Transient Ischemic Attack) Goal: Optimal Functional Ability Outcome: Ongoing, progressing Problem: Pain (Stroke, Ischemic/Transient Ischemic Attack) Goal: Acceptable Pain Control Outcome: Ongoing, progressing Problem: Urinary Elimination Impaired (Stroke, Ischemic/Transient Ischemic Attack) Goal: Effective Urinary Elimination Outcome: Ongoing, progressing Problem: Discharge Planning Goal: Patient's discharge needs will be identified in a timely manner Outcome: Ongoing, progressing Goal: Patient will be discharged in a safe manner Outcome: Ongoing, progressing Problem: Self-Care Deficit Goal: Improved Ability to Complete Activities of Daily Living Outcome: Ongoing, progressing Problem: Mobility Impairment Goal: Optimal Mobility Outcome: Ongoing, progressing Problem: Cognitive Impairment Goal: Optimal Functional [place] Outcome: Ongoing, progressing Pt alert and oriented. Calls appropriately for help. Bed/chair alarm on for safety. Lt neg lect and partial lt field cut. CGA w/ transfers. Tolerating fat/chol modified diet. LBM 04/14 . Lt pronation and drift.Ms 4/5 to LT. Numbness to LT side. LUE ataxic, finger to nose sligh tly off. lan of Care - Irma Muse, OT - 04/15/2020 2:30 PM PDTFormatting of this note might be different from the or iginal. IRF Occupational Therapy Plan of Care Treatment Note Summary: Efren has been participating in occupational therapy for treatment of decreased s afety/capacity for indep with ADLs, IADLs, functional mobility/tfs following admission after Ischemic cerebrovascular accident (CVA) . Emphasis of session included functional mob/tfs, theract for FMC/strength/stereognosis/sensation/balance, standing toileting, standing groom ing. Patient demonstrates progress towards functional goals as evidenced by participatory t hroughout. BP beginning of session from chair Vitals with Orthostatic BP with comments 04/15/2020 SYSTOLIC 123 DIASTOLIC 77 BP Comments seated dinamap, BK teds donned Pulse 62 Patient was agreeable to therapy. Patient participated without adverse reaction. It is enco uraged that the patient be up in chair for all meals. Recommended toileting with nursing: Day Night toilet toilet No Assistive Device No Assistive Device supervision / set-up stand by assistance supervision / set-up stand by assistance Remaining barriers to discharge and functional limitations include decreased insight into s afety and deficits, decreased functional activity tolerance, decreased bed mobility, decreas ed functional transfers, decreased ability to perform ADLs, decreased ability to perform IAD Ls, decreased ability to perform medication management, demonstrating need for 24/7 supervis ion, and medical status. Efren will benefit from continued therapeutic intervention to address ongoing impairments an d increase safety and independence with activities necessary for safe discharge. Refer jean-pierre valle for specific details regarding functional levels. Occupational Therapy Discharge Recommendations are: Recommended discharge disposition: home with assist Post discharge occupational therapy recommendation: home health, other (see comment), outp atient therapy Equipment Recommendations: sisal operator(Additional equipment TBD) Planned Interventions:ADL retraining, balance training, fine motor coordination training, f unctional endurance training, motor coordination training, neuromuscular re-education, patie nt/family education, transfer training, visual/perceptual retraining, IADL retraining, bed m obility training, ROM (Range of Motion), strengthening, other (see comments)(sensory) Recommended Frequency: (rehab schedule) Patient Status/Goals: Reflects last filed data and may be from multiple contributors. ADLs Supervision standing void Toileting, Level of [place]: supervised Assistive Device: (gait belt) Toileting Assess/Train, Position: standing Toileting Impairments: impaired vision, coordination impaired, impaired functional enduranc e/activity tolerance, sensation decreased Supervision washing hands at sink Grooming, Level of [place]: supervised Assistive Device: (gait belt) Grooming Assess/Train, Position: standing Grooming Impairments: coordination impaired, impaired vision, sensation decreased, impaired balance Therapeutic Exercise Seated at table for FMC task to unscrew/screw x3 large bolts, x3 small bolts from VALPAR 4. Pt also performed standing facing forward at VALPAR 4 on table with SBA for activity focusi ng on balance challenge along with emphasis on FMC, stereognosis to unscrew/screw x3 large b olts, x3 small bolts with encouragement to perform unscrewing/screwing without looking, thou gh occassionally pt permitted to look. Pt with report of tingly feeling in L hand, as well a s felt tendons working. Pt with decreseased hand strength and in hand manipulation throughou t, dropping bolts at times throughout task. Functional Endurance Good activity tolerance overall Bed Mobility No bed mob this session Transfers SBA for functional mob/tfs including chair tfs and supervision for standing void at toilet. Pt SBA with gait belt throughout functional mob room<>gym for theract. Pt walked up close t o bed in hallway at L side, vcs for awareness to this. Vcs for assist pathfinding room<>gym, partly due to pt had just moved rooms. Sit-Stand, Level of [place]: stand by assist Stand-Sit, Level of [place]: stand by assist [id number], Assistive Device: gait belt Toilet, Level of [place]: supervised(standing void) Toilet, Assistive Device: (gait belt) Safety Issues: step length decreased, weight-shifting ability decreased, sequencing ability decreased, balance decreased during turns Impairments: impaired balance, impaired vision, sensation decreased, motor control impaired , coordination impaired, postural control impaired OT Goal Review Date Most Recent Value STG Review Date 04/18/20 at 04/11/2020 0922 LTG Review Date 04/25/20 at 04/11/2020 0922 Grooming Goal Most Recent Value STG Status met at 04/13/2020 1210 STG [place] Level supervised at 04/11/2020 0922 STG Position standing at 04/11/2020 0922 STG Adaptive Equipment none at 04/11/2020 0922 LTG Status progressing at 04/15/2020 1430 LTG [place] Level modified independent at 04/11/2020 0922 LTG Position standing at 04/11/2020 0922 LTG Adaptive Equipment none at 04/11/2020 0922 Bathing Goal Most Recent Value STG Status progressing at 04/13/2020 1451 STG [place] Level supervised, set up required, verbal cues required at 04/11/2020 092 2 STG Adaptive Equpiment grab bars, shower head, detachable, sponge, long handled, shower ch air, shower chair with back at 04/11/2020 0922 STG Position sitting, standing at 04/11/2020 0922 LTG Status new at 04/11/2020 0922 LTG [place] Level modified independent at 04/11/2020 0922 LTG Adaptive Equpiment grab bars, shower head, detachable, sponge, long handled, shower ch air, shower chair with back at 04/11/2020 0922 LTG Position sitting, standing at 04/11/2020 0922 UB Dressing Goal Most Recent Value STG Status met at 04/12/2020 1158 STG [place] Level supervised, set up required, verbal cues required at 04/11/2020 092 2 STG Adaptive Equipment none at 04/11/2020 0922 LTG Status progressing at 04/15/2020 0830 LTG [place] Level modified independent at 04/11/2020 0922 LTG Adaptive Equipment none at 04/11/2020 0922 LTG Comments including clothing retrieval at 04/12/2020 1158 LB Dressing Goal Most Recent Value STG Status progressing at 04/15/2020 0830 STG [place] Level supervised, set up required, verbal cues required at 04/11/2020 092 2 STG Adaptive Equipment sock-aid, shoe horn, long handled, sisal operator at 04/11/2020 0922 LTG Status progressing at 04/15/2020 0830 LTG [place] Level modified independent at 04/11/2020 0922 LTG Adaptive Equipment shoe horn, long handled, sock-aid, sisal operator at 04/11/2020 0922 LTG Comments including clothing retrieval at 04/12/2020 1158 Toileting Goal Most Recent Value STG Status met at 04/13/2020 1210 STG [place] Level supervised, set up required, verbal cues required at 04/11/2020 092 2 STG Assistive Device grab bar at 04/11/2020 0922 LTG Status progressing at 04/15/2020 1430 LTG [place] Level modified independent at 04/11/2020 0922 LTG Assistive Device grab bar at 04/11/2020 0922 Toilet Transfer Goal Most Recent Value STG Status met at 04/13/2020 1210 STG [place] Level supervised, set up required, verbal cues required at 04/11/2020 092 2 STG Assistive Device grab bars at 04/11/2020 0922 LTG Status progressing at 04/15/2020 0830 LTG [place] Level modified independent at 04/11/2020 0922 LTG Assistive Device grab bars at 04/11/2020 0922 Tub/Shower Transfer Goal Most Recent Value Tub/Shower Type tub/shower combo at 04/11/2020 0922 STG Status progressing at 04/13/2020 1451 STG [place] Level supervised, set up required, verbal cues required at 04/11/2020 092 2 STG Assistive Device grab bars, shower chair at 04/11/2020 0922 LTG Status new at 04/11/2020 0922 LTG [place] Level modified independent at 04/11/2020 0922 LTG Assistive Device grab bars, shower chair at 04/11/2020 0922 IADL Goal Most Recent Value STG Status new at 04/11/2020 0922 STG Pt will be supervision vcs setup prn for meal preparation task at 04/11/2020 0922 LTG Status new at 04/11/2020 0922 LTG Pt will be Mod I for meal preparation task at 04/11/2020 0922 Vision Goal Most Recent Value STG Status progressing at 04/14/2020 1653 STG Pt will participate in eye exercises to increase ocular alignment, initiate saccadic e ye motion, increase VOR with eye focusing, and decrease diplopia as well as increase depth p erception and spatial relations to improve visual functions for ADLs, functional mobility/tf s. at 04/11/2020 0922 LTG Status progressing at 04/15/2020 0830 LTG Pt will report improvements to visual deficits impact on ADLs and utilize visual compe nsatory strategies indep at 04/11/2020 0922 Additional Goals #1 OT Most Recent Value STG Status progressing at 04/15/2020 1430 STG Pt will participate in tasks to increase/improve LUE sensation and coordination. at 0 04/11/2020 0922 LTG Status revised, new at 04/12/2020 1158 LTG Pt L hand fine motor coordination will be improved as evidenced by L hand performance on the 9 hole peg test in 90 seconds or less. at 04/12/2020 1158 Additional Goals #2 OT Most Recent Value STG Status progressing at 04/15/2020 0830 Electronically signed by: Irma Muse OT, 04/15/2020 5:40 PM lan of Care - Tabatha Duque, PT - 04/15/2020 1:45 P M PDT IRF Physical Therapy Plan of Care Treatment Note Summary: Efren has been participating in physical therapy for treatment of Impaired balanc e, gait instability, impaired vision, coordination and sensation on (L) side following CVA . 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 Emphasis of session included gait training, community re-integration training. Pt was able to scan to (L) when crossing cross walk and walked on uneven surface w/o LOB. Wide bas e gait walking on the grass. Able to avoid obstacles. Still needed cues for path finding. Patient demonstrates progress towards functional goals as evidenced by improved balance an d scanning to (L) side. RN cleared patient for participation in therapy. Patient was agreeable to therapy. Patient participated without adverse reaction. Patient is encouraged to ambulate into hallway with n ursing staff. It is encouraged that the patient be up in chair for all meals. Recommended mobility with nursing: Day Night into the bathroom and into the hallway into the bathroom and into the hallway No Assistive Device No Assistive Device supervision / set-up supervision / set-up Remaining barriers to discharge and functional limitations include decreased functional act ivity tolerance, decreased functional transfers, decreased functional gait distance, decreas ed gait velocity, not able to navigate stairs, demonstrating need for 24/7 supervision, not yet able to mobilize at level safe for home discharge, [facility] indicating significant impairme nt with basic functional mobility, and medical status. Efren will benefit from continued therapeutic intervention to address ongoing impairments an d increase safety and independence with activities necessary for safe discharge. Refer jean-pierre valle for specific details regarding functional levels. Physical Therapy Discharge Recommendations are: Recommended discharge disposition: home with assist Post discharge physical therapy recommendation: outpatient therapy Equipment Recommendations: none Planned Interventions: balance training, bed mobility training, gait training, home exerci se program, patient/family education, strengthening, transfer training, stair training, chay r coordination training, neuromuscular re-education Frequency: daily(1-2x/day, IRF) Patient Status/Goals: Reflects last filed data and may be from multiple contributors. Bed Mobility Not tested at this session. Pt up in chair upon arrival Assistive Device: none Roll Left, Level of [place]: modified independent Roll Right, Level of [place]: modified independent Scoot/Bridge, Level of [place]: modified independent Supine to Sit, Level of [place]: modified independent Sit to Supine, Level of [place]: modified independent Impairments: impaired vision Transfers improving, better scanning to (L) side w/o cues. no LOB. did not bumped into obstacles in his room. Bed-Chair, Level of [place]: supervised Chair-Bed, Level of [place]: supervised [id number]-Bcn, Assistive Device: none Sit-Stand, Level of [place]: supervised Stand-Sit, Level of [place]: supervised [id number], Assistive Device: none Safety Issues: step length decreased, weight-shifting ability decreased, sequencing ability decreased, balance decreased during turns Impairments: impaired balance, impaired vision, sensation decreased, motor control impaired , coordination impaired, postural control impaired Gait outdoor gait training curbs, cross walk, on grass, path finding. No LOB, occasional cues f or scanning to (L). gets closed to edge of curbs but able to correct. Level of [place]: stand by assist, verbal cues required Assistive Device: none Distance (feet): >1,000' Gait Deviations: stride width increased Safety Issues: balance decreased during turns Impairments: impaired balance, coordination impaired, motor control impaired, sensory feedb ack impaired, impaired vision, postural control impaired Stairs slow d/t impaired vision and depth perception. no LOB. Number of Stairs: 6 x 2 Handrail Location: right side (ascending) Level of [place]: stand by assist Assistive Device: 1 rail Technique Used: step to step (ascending), step to step (descending) Safety Issues: balance decreased during turns, weight-shifting ability decreased Impairments: impaired balance, coordination impaired, motor control impaired, impaired visi on, sensory feedback impaired Therapeutic Exercise Standing exercises: with UE support(standing on 1 leg (L)) Repetitions: 4-5 sec. x 4 PT Goal Review Date Most Recent Value STG Review Date 04/18/20 at 04/11/2020 1108 LTG Review Date 04/25/20 at 04/11/2020 1108 [id number] Goal Most Recent Value STG Status met at 04/14/2020 0935 STG [place] Level supervised at 04/11/2020 1108 STG Assistive Device none at 04/11/2020 1108 LTG Status met at 04/14/2020 0935 LTG [place] Level modified independent at 04/11/2020 1108 LTG Assistive Device none at 04/11/2020 1108 [id number] Goal Most Recent Value STG Status met at 04/15/2020 1345 STG [place] Level supervised at 04/11/2020 1108 STG Assistive Device none at 04/11/2020 1108 LTG Status continued at 04/15/2020 1345 LTG [place] Level modified independent at 04/11/2020 1108 LTG Assistive Device none at 04/11/2020 1108 Gait Goal Most Recent Value STG Status met at 04/14/2020 0935 STG [place] Level stand by assist at 04/11/2020 1108 STG Assistive Device none at 04/11/2020 1108 STG Distance (feet) 300' at 04/11/2020 1108 LTG Status progressing at 04/15/2020 1345 LTG [place] Level supervised at 04/11/2020 1108 LTG Assistive Device none at 04/11/2020 1108 LTG Distance (feet) > 1,000' at 04/15/2020 1345 LTG Comments for community mobility at 04/15/2020 1345 Stair Goal Most Recent Value STG Status progressing at 04/15/2020 1345 STG [place] Level supervised at 04/11/2020 1108 STG Assistive Device 2 rails at 04/11/2020 1108 STG Number of Stairs 12 at 04/11/2020 1108 LTG Status new at 04/11/2020 1108 LTG [place] Level modified independent at 04/11/2020 1108 LTG Assistive Device 2 rails at 04/11/2020 1108 LTG Number of Stairs 12 at 04/11/2020 1108 Additional Goal #1 PT Most Recent Value STG Status progressing at 04/11/2020 1422 STG Pt will demonstrate improve DGI score to 15/24 to reduce fall risk. at 04/11/2020 1108 LTG Status new at 04/11/2020 1108 LTG Improve DGI score to >19/24 to reduce fall rsik. at 04/11/2020 1108 Electronically signed by: TABATHA DUQUE, PT, 04/15/2020 4:06 PM lan of Care - Tia Guillen, Speech Patholo gist - 04/15/2020 1:40 PM PDT IRF Speech Therapy Plan of Care Treatment Note Summary: Efren has been participating in speech therapy for treatment of Moderate to sever quoc impaired immediate and delayed memory. Left visual field inattention with reminders need ed to attend to left visual space. . Emphasis of session included education on use of memor y book, recall with min cues recent events to place in memory book, functional reading tasks to target left visual inattention. Patient demonstrates progress towards functional goals as evidenced by requiring less cues to look left, self evaluate work, target increasing insi ght into awareness. Remaining barriers to Cognition include baseline chronic cognitive impa irment secondary to TBI. Efren will benefit from continued therapeutic intervention to address ongoing impairments an d increase safety and independence. Refer below for specific details regarding specifics of session and impairments. Speech Language Pathology Discharge Recommendations are: Recommended discharge disposition: home with family/caregiver Post discharge speech language pathology recommendation: continue SAND WORKER tx for cognitive-dillon guistic, outpatient therapy Planned Interventions: compensatory strategies, memory, executive function skills, reading , cognitive stimulation, writing, other (see comments)(functional reading tasks) Recommended Frequency: 5 times/wk Cognitive Indep left scanning to extra personal space: 09/06 Functional reading tasks: Menu-1/3 items indep correct, min cues to look left, reading med icine label: indep no errors, reading recipe label, x3 errors, mod cues to attend left and u se of reading aid to assist in scanning L>R, libertarian invite indep no errors, vince: x1 error mi n cues Feedback and homework provided to target left inattention Clock drawin/ completed - significant visual spatial skills Cognition Goal Most Recent Value STG Status progressing at 04/15/2020 1339 STG Pt will recall to use memory book to compensate for episodic memory impairment with m in cues from SAND WORKER in 3 consecutive sessions. at 04/15/2020 1339 Additional Goals #1 SAND WORKER Most Recent Value STG Status met at 04/14/2020 1430 STG Pt will verbally name 10 items in room from left space to target left visual neglect i ndep. at 04/12/2020 1224 LTG Status progressing at 04/15/2020 1339 LTG Pt will complete functional reading tasks with 4/5 success on independent use of scann ing strateges e.g. recalling to scall all the way to left at 04/15/2020 1339 Additional Goals #2 SAND WORKER Most Recent Value STG Status progressing at 04/15/2020 1339 STG Patient will use self selected compensatory strategy during structured immediate memor y tasks in 4/5 opportunities with mod cues from SAND WORKER. at 04/15/2020 1339 Additional Goals #3 SAND WORKER Most Recent Value STG Status progressing at 04/15/2020 1339 STG Patient will participate in education of compensatory strategies for improved STM at 0 04/15/2020 1339 LTG Status continued at 04/12/2020 1224 LTG Patient will utilize compensatory strategies for improved recall 4/5 opportunities ove r 3 consecutive sessions and min cues at 04/12/2020 1224 Electronically signed by: Tia Guillen, Speech Pathologist, 04/15/2020 1:40 PMElect ronically signed by Tia Guillen, Speech Pathologist at 04/15/2020 1:49 PM PDTPlan of Care - Maria Guo, [employer] - 04/15/2020 1:03 PM PDTTeam Conference Patient and Family Foll ow Up [employer] Technology Manager met with Efren to review the plan of care established at today's team erica morejon Efren's anticipated discharge date has been scheduled for Tuesday, April 23, which he was agreeable to. His , Susie, is also being asked to attend caregiver training some time during the week. JOLENE was able to reach out to his , but unfortunately due to the fact that she does not own a vehicle, she is unable to travel to [place]. CM inquired whether finding tra nsportation would cause more anxiety for her than not seeing him until he discharges, she st ated that it would. Susie shared that she has been able to communicate with Efren garcia h his tablet and she had previously been trained in stroke support when she served as her fa ther's caregiver before he passed and feels equipped in handling Efren's needs as well. CM explored additional DME items that he will most likely need upon discharge - transfer po le, tub transfers bench, bed side railing, grab bars installed in bathroom - which she is lo oking in to. CM will also [facility] to [facility] to see their ability in covering these items for Efren. In speaking with Efren's it was also discovered that he will need transportation home t o [place] upon discharge. His suggested reaching out to [facility] coordinator, Ariane Pacheco, to arrange such, as the [facility] had helped Efren in the past with transportation and thought they co uld arrange travel again for him on day of discharge. CM was agreeable to contacting them a nd will do so as discharge nears. .Electronically signed by: GRAYSON Keating 04/15/2020 1:36 PM lan of Care - Aylin Bustillos, BELT CONVEYOR DRIER Student - 04/15/2020 11:20 AM PDT IRF Physical Therapy Plan of Care Treatment Note Summary: Efren has been participating in physical therapy for treatment of Impaired balanc e, gait instability, impaired vision, coordination and sensation on (L) side following CVA . 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 Emphasis of session included changing laundry over from washer to dryer w/ min VC for seque ncing. Ambulation including pathfinding w/ emphasis on utilizing signage to find directions. Community distance ambulation greater than 1000' on 1st, 2nd, and 3rd floor. Continue need for vc to scan left if unable to locate items on right. VC for continued arm swing on L side . Pt states he needs to be reminded to scan left and down d/t pt recognizing vision field de ficit. Pt able to recall aprox 3/4 of activities completed during session. Patient demonstrates progress towards functional goals as evidenced by ability to complete increase complexity of pathfinding tasks. No instances of bumping into items on L side. Pt continues to present with deficits in scanning to left when unable to locate items on ri ght. RN cleared patient for participation in therapy. Patient was agreeable to therapy. Patient participated without adverse reaction. Recommended mobility with nursing: Day Night into the bathroom into the bathroom Gait belt Gait belt stand by assistance stand by assistance contact guard assistance Remaining barriers to discharge and functional limitations include decreased insight into s afety and deficits, decreased functional activity tolerance, decreased functional gait dista nce, and decreased gait velocity. Efren will benefit from continued therapeutic intervention to address ongoing impairments an d increase safety and independence with activities necessary for safe discharge. Refer jean-pierre valle for specific details regarding functional levels. Physical Therapy Discharge Recommendations are: Recommended discharge disposition: home with assist Post discharge physical therapy recommendation: outpatient therapy Equipment Recommendations: none Planned Interventions: balance training, bed mobility training, gait training, home exerci se program, patient/family education, strengthening, transfer training, stair training, chay r coordination training, neuromuscular re-education Frequency: daily(1-2x/day, IRF) Patient Status/Goals: Reflects last filed data and may be from multiple contributors. Bed Mobility Not tested at this session. Pt up in chair upon arrival Transfers SBA occasional cueing to scan left and low for safety. Sit-Stand, Level of [place]: stand by assist, verbal cues required Stand-Sit, Level of [place]: stand by assist, verbal cues required [id number], Assistive Device: none Toilet, Level of [place]: supervised Toilet, Assistive Device: none Safety Issues: step length decreased, weight-shifting ability decreased, sequencing ability decreased, balance decreased during turns Impairments: impaired balance, impaired vision, sensation decreased, motor control impaired , coordination impaired Gait SBA w/ VC required for more complex path finding using elevator to access level 2, level 1 and back to level 3. Level of [place]: stand by assist, verbal cues required Assistive Device: none Distance (feet): Community distance ambulation greater than 1000' on 1st, 2nd, 3rd foor. Gait Deviations: stride width increased Safety Issues: balance decreased during turns Impairments: impaired balance, coordination impaired, motor control impaired, sensory feedb ack impaired, impaired vision, postural control impaired PT Goal Review Date Most Recent Value STG Review Date 04/18/20 at 04/11/2020 1108 LTG Review Date 04/25/20 at 04/11/2020 1108 [id number] Goal Most Recent Value STG Status met at 04/14/2020 0935 STG [place] Level supervised at 04/11/2020 1108 STG Assistive Device none at 04/11/2020 1108 LTG Status met at 04/14/2020 0935 LTG [place] Level modified independent at 04/11/2020 1108 LTG Assistive Device none at 04/11/2020 1108 [id number]-Ppa Goal Most Recent Value STG Status progressing at 04/14/2020 0935 STG [place] Level supervised at 04/11/2020 1108 STG Assistive Device none at 04/11/2020 1108 LTG Status new at 04/11/2020 1108 LTG [place] Level modified independent at 04/11/2020 1108 LTG Assistive Device none at 04/11/2020 1108 Gait Goal Most Recent Value STG Status met at 04/14/2020 0935 STG [place] Level stand by assist at 04/11/2020 1108 STG Assistive Device none at 04/11/2020 1108 STG Distance (feet) 300' at 04/11/2020 1108 LTG Status progressing at 04/14/2020 1345 LTG [place] Level supervised at 04/11/2020 1108 Stair Goal Most Recent Value STG Status progressing at 04/13/2020 1358 STG [place] Level supervised at 04/11/2020 1108 STG Assistive Device 2 rails at 04/11/2020 1108 STG Number of Stairs 12 at 04/11/2020 1108 LTG Status new at 04/11/2020 1108 LTG [place] Level modified independent at 04/11/2020 1108 LTG Assistive Device 2 rails at 04/11/2020 1108 LTG Number of Stairs 12 at 04/11/2020 1108 Additional Goal #1 PT Most Recent Value STG Status progressing at 04/11/2020 1422 STG Pt will demonstrate improve DGI score to 15/24 to reduce fall risk. at 04/11/2020 1108 LTG Status new at 04/11/2020 1108 LTG Improve DGI score to >19/24 to reduce fall rsik. at 04/11/2020 1108 Electronically signed by: Aylin Bustillos PTA Student, 04/15/2020 11:45 AM Associated attestation - Alexander Acharya PTA - 04/15/2020 12:27 PM PDTPortions of the evalu ation data modeler were performed and entered by Aylin Bustillos Physical Therapist [employer] t Student, under the direct supervision of Clinical Instructing Liscensed Physical Therapist Studio Owner. I have reviewed this documentation and agree w/ the treatment provided. Adequat e supervision was given and correct CPT codes have been entered. Electronically signed by: Alexander Acharya PTA 04/15/2020 12:27 PM Plan of Care - Namita Huerta COTA - 04/15/2020 8:30 AM PDTFormatting of this note kiersten ht be different from the original. IRF Occupational Therapy Plan of Care Treatment Note Summary: Efren has been participating in occupational therapy for treatment of decreased s afety/capacity for indep with ADLs, IADLs, functional mobility/tfs following admission after Ischemic cerebrovascular accident (CVA) . Emphasis of session included self care tasks and FMC with L UE. Patient demonstrates progress towards functional goals as evidenced by part icipating in therapy working towards his OT goals. Patient was agreeable to therapy. Patient participated without adverse reaction. It is enco uraged that the patient be up in chair for all meals. Recommended toileting with nursing: Day Night toilet toilet No Assistive Device No Assistive Device supervision / set-up supervision / set-up Remaining barriers to discharge and functional limitations include decreased insight into s afety and deficits, decreased functional activity tolerance, decreased functional transfers, decreased ability to perform ADLs, decreased ability to perform IADLs, decreased ability to perform medication management, not yet able to mobilize at level safe for home discharge, a nd medical status. Efren will benefit from continued therapeutic intervention to address ongoing impairments an d increase safety and independence with activities necessary for safe discharge. Refer jean-pierre valle for specific details regarding functional levels. Occupational Therapy Discharge Recommendations are: Recommended discharge disposition: home with assist Post discharge occupational therapy recommendation: home health, other (see comment), outp atient therapy Equipment Recommendations: sisal operator(Additional equipment TBD) Planned Interventions:ADL retraining, balance training, fine motor coordination training, f unctional endurance training, motor coordination training, neuromuscular re-education, patie nt/family education, transfer training, visual/perceptual retraining, IADL retraining, bed m obility training, ROM (Range of Motion), strengthening, other (see comments)(sensory) Recommended Frequency: (rehab schedule) Patient Status/Goals: Reflects last filed data and may be from multiple contributors. VAISHNAVIs Efren is up in recliner, he is agreeable to complete morning self care tasks light sponge bath standing at sink, SBA for general safety, VC's to scan sink area to his left to find items. Bathing, Level of [place]: stand by assist, verbal cues required, set up required Assistive Device: none Bathing Assess/Train, Position: standing Bathing Impairments: decreased flexibility, sensation decreased, strength decreased, impair ed balance, motor control impaired, impaired vision, impaired functional endurance/activity tolerance VC to bring to pt's attn. that he dropped his shirt. Vc for orientation of puller over shirt to thread affected arm first UB Dressing, Level of [place]: supervised, set up required Assistive Device: none UB Dressing Assess/Train, Position: standing UB Dressing Impairments: sensation decreased, impaired balance, impaired vision, coordinati on impaired vc for orientation of briefs, he demonstrated carry over w/ shorts. assist required to marita BK Teds over toes/heals. He assisted w/pulling BK Teds over calfs. He is able to doff/marita slipper socks, and marita shoes. Pt was able to tie his shoes with placing foot on stool. LB Dressing, Level of [place]: minimal assist (75% patient effort) Assistive Device: other (see comments)(BSC for sitting ) LB Dressing Assess/Train, Position: sitting, standing LB Dressing Impairments: impaired vision, decreased flexibility, coordination impaired, mot or control impaired, sensation decreased, impaired balance, impaired functional endurance/ac tivity tolerance standing at toilet to void x2 Toileting, Level of [place]: supervised Assistive Device: none Toileting Assess/Train, Position: standing Toileting Impairments: impaired vision, coordination impaired, impaired functional enduranc e/activity tolerance, sensation decreased standing at sink, VC to look to his L for supplies Grooming, Level of [place]: supervised, set up required, verbal cues required Assistive Device: none Grooming Assess/Train, Position: standing Grooming Impairments: coordination impaired, impaired vision, sensation decreased, impaired balance IADLs Pt requests to wash his clothes this session. Carrying laundry in a basket, he walked hallw ay to conference room where he got clothes started in washer. Noted visual deficits with at tempting to pour laundry.fabric softener in to caps to measure, spilling both. Laundry Training, OT Eval Level Of [place]: Laundry: stand by assist Physical Assist/Nonphysical Assist: Laundry: verbal cues, set-up required, supervision Assistive Device: none Transfers SBA-CGA and occasional VC's for safety awareness during mobility and for looking to his L. VC's given to reach back when sitting. Sit-Stand, Level of [place]: stand by assist Stand-Sit, Level of [place]: stand by assist, verbal cues required Iax-Kkpsx-Wxo, Assistive Device: none Toilet, Level of [place]: supervised Toilet, Assistive Device: none Safety Issues: step length decreased, weight-shifting ability decreased, sequencing ability decreased, balance decreased during turns Impairments: impaired balance, impaired vision, sensation decreased, motor control impaired , coordination impaired OT Goal Review Date Most Recent Value STG Review Date 04/18/20 at 04/11/2020 0922 LTG Review Date 04/25/20 at 04/11/2020 0922 Grooming Goal Most Recent Value STG Status met at 04/13/2020 1210 STG [place] Level supervised at 04/11/2020 0922 STG Position standing at 04/11/2020 0922 STG Adaptive Equipment none at 04/11/2020 0922 LTG Status progressing at 04/15/2020 0830 LTG [place] Level modified independent at 04/11/2020 0922 LTG Position standing at 04/11/2020 0922 LTG Adaptive Equipment none at 04/11/2020 0922 Bathing Goal Most Recent Value STG Status progressing at 04/13/2020 1451 STG [place] Level supervised, set up required, verbal cues required at 04/11/2020 092 2 STG Adaptive Equpiment grab bars, shower head, detachable, sponge, long handled, shower ch air, shower chair with back at 04/11/2020 0922 STG Position sitting, standing at 04/11/2020 0922 LTG Status new at 04/11/2020 0922 LTG [place] Level modified independent at 04/11/2020 0922 LTG Adaptive Equpiment grab bars, shower head, detachable, sponge, long handled, shower ch air, shower chair with back at 04/11/2020 0922 LTG Position sitting, standing at 04/11/2020 0922 UB Dressing Goal Most Recent Value STG Status met at 04/12/2020 1158 STG [place] Level supervised, set up required, verbal cues required at 04/11/2020 092 2 STG Adaptive Equipment none at 04/11/2020 0922 LTG Status progressing at 04/15/2020 0830 LTG [place] Level modified independent at 04/11/2020 0922 LTG Adaptive Equipment none at 04/11/2020 0922 LTG Comments including clothing retrieval at 04/12/2020 1158 LB Dressing Goal Most Recent Value STG Status progressing at 04/15/2020 0830 STG [place] Level supervised, set up required, verbal cues required at 04/11/2020 092 2 STG Adaptive Equipment sock-aid, shoe horn, long handled, sisal operator at 04/11/2020 0922 LTG Status progressing at 04/15/2020 0830 LTG [place] Level modified independent at 04/11/2020 0922 LTG Adaptive Equipment shoe horn, long handled, sock-aid, sisal operator at 04/11/2020 0922 LTG Comments including clothing retrieval at 04/12/2020 1158 Toileting Goal Most Recent Value STG Status met at 04/13/2020 1210 STG [place] Level supervised, set up required, verbal cues required at 04/11/2020 092 2 STG Assistive Device grab bar at 04/11/2020 0922 LTG Status progressing at 04/15/2020 0830 LTG [place] Level modified independent at 04/11/2020 0922 LTG Assistive Device grab bar at 04/11/2020 0922 Toilet Transfer Goal Most Recent Value STG Status met at 04/13/2020 1210 STG [place] Level supervised, set up required, verbal cues required at 04/11/2020 092 2 STG Assistive Device grab bars at 04/11/2020 0922 LTG Status progressing at 04/15/2020 0830 LTG [place] Level modified independent at 04/11/2020 0922 LTG Assistive Device grab bars at 04/11/2020 0922 Tub/Shower Transfer Goal Most Recent Value Tub/Shower Type tub/shower combo at 04/11/2020 0922 STG Status progressing at 04/13/2020 1451 STG [place] Level supervised, set up required, verbal cues required at 04/11/2020 092 2 STG Assistive Device grab bars, shower chair at 04/11/2020 09 LTG Status new at 04/11/2020 09 LTG [place] Level modified independent at 04/11/2020 0922 LTG Assistive Device grab bars, shower chair at 04/11/2020 0922 IADL Goal Most Recent Value STG Status new at 04/11/2020 0922 STG Pt will be supervision vcs setup prn for meal preparation task at 04/11/2020921 LTG Status new at 04/11/2020921 LTG Pt will be Mod I for meal preparation task at 04/11/2020 09 Vision Goal Most Recent Value STG Status progressing at 04/14/2020 1653 STG Pt will participate in eye exercises to increase ocular alignment, initiate saccadic e ye motion, increase VOR with eye focusing, and decrease diplopia as well as increase depth p erception and spatial relations to improve visual functions for ADLs, functional mobility/tf s. at 04/11/2020 0922 LTG Status progressing at 04/15/2020 0830 LTG Pt will report improvements to visual deficits impact on ADLs and utilize visual compe nsatory strategies indep at 04/11/2020 09 Additional Goals #1 OT Most Recent Value STG Status progressing at 04/15/2020 0830 STG Pt will participate in tasks to increase/improve LUE sensation and coordination. at 0 04/11/2020 0922 LTG Status revised, new at 04/12/2020 1158 LTG Pt L hand fine motor coordination will be improved as evidenced by L hand performance on the 9 hole peg test in 90 seconds or less. at 04/12/2020 1158 Additional Goals #2 OT Most Recent Value STG Status progressing at 04/15/2020 0830 Electronically signed by: DAWNA Solares, 04/15/2020 1:58 PM lan of Daisy Sheikh, RN - 2019 3:06 AM PDTPt [id number] calls for needs bed alarm on for safety. Pt sba to br Left sided n eglect with loss of dexterity to that side and numbness and tingling. Pt continues to report loss of Left eye peripheral vision but states improving. Pt given tylenol for headache with relief and requested klonopin for anxiety stated the helicopter noise sent off memories fro m the [place] given with relief. Pt slept well between cares. Voiding last bm 04/14. No fall s this shift ,frequent rounding maintained.Electronically signed by Daisy Morrow RN at 3:29 AM PDTPlan of Care - Irma Muse OT - 04/14/2020 4:53 PM PDT [facility] Occupational Therapy Plan of Care Treatment Note Summary: Efren has been participating in occupational therapy for treatment of decreased s afety/capacity for indep with ADLs, IADLs, functional mobility/tfs following admission after Ischemic cerebrovascular accident (CVA) . Emphasis of session included visual discussion a nd assessment from chair level. Patient demonstrates progress towards functional goals as e videnced by cooperative throughout. RN cleared patient for participation in therapy. Patient was agreeable to therapy. Patient participated without adverse reaction. It is encouraged that the patient be up in chair for all meals. Recommended toileting with nursing: Day Night toilet toilet No Assistive Device No Assistive Device stand by assistance stand by assistance Remaining barriers to discharge and functional limitations include decreased insight into s afety and deficits, decreased functional activity tolerance, decreased bed mobility, decreas ed functional transfers, decreased ability to perform ADLs, decreased ability to perform IAD Ls, decreased ability to perform medication management, and medical status. Efren will benefit from continued therapeutic intervention to address ongoing impairments an d increase safety and independence with activities necessary for safe discharge. Refer jean-pierre valle for specific details regarding functional levels. Occupational Therapy Discharge Recommendations are: Recommended discharge disposition: home with assist Post discharge occupational therapy recommendation: home health, other (see comment), outp atient therapy(Will continue to determine pt benefit from post d/c therapy HHOT vs outpatien t, TBD) Equipment Recommendations: sisal operator(Additional equipment TBD) Planned Interventions:ADL retraining, balance training, fine motor coordination training, f unctional endurance training, motor coordination training, neuromuscular re-education, patie nt/family education, transfer training, visual/perceptual retraining, IADL retraining, bed m obility training, ROM (Range of Motion), strengthening, other (see comments)(sensory) Recommended Frequency: (rehab schedule) Patient Status/Goals: Reflects last filed data and may be from multiple contributors. Vision Pt reports that his vision for objects at a distance is improving. Reports that he still ex periences headaches when reading, after approx 30 to 45 minutes, denies screen time on his t ablet bothering him. OT discussed with pt breaking up his reading time so that he isn't read ing for extended periods all the way to the point of experiencing a headache. Explained grad ually increasing reading time. Pt continues to express presence of a "blind spot" to L side though denies presence of dizziness, double vision, fuzziness. Pt expresses awareness to alberto keys to compensate for his decreased L peripheral vision. Pt reports the doctor has prescrib ed drops for his dry eyes. Peripheral vision: When pen moved from back of head toward midline vision, pt reports seeing pen at R peripher y just in front of ear level and at L periphery approx 45 degrees from ear level. No signifi cant deficits noted for peripheral vision superiorly/inferiorly. Smooth pursuits: With both eyes open, pt with smooth horizontal/vertical tracking at R side/center, though r eports loss of pen for horizontal/vertical tracking at L side. With each eye individually/op posite eye covered, pt with smooth horizontal/vertical tracking at R side/center but report of loss of pen for horizontal/vertical tracking at L side. Some visual inattention noted. Vergence: Pt reports double pen at approx 3 inches from nose, however OT noticed lack of eyes coming inward. Saccades: Able to perform shifting gaze from pen to finger, both eyes open, for all positions though slower overall for saccades to vertically upward and L horizontally/diagonally. Horizontal: Shifting gaze to R smooth/quick though slower for shifting gaze to L. Vertical: Shifting gaz e upward slower than shifting gaze downward. Diagonal upper R/lower L: Slower shifting gaze to lower L corner. Diagonal upper L/lower R: Slower shifting gaze to upper L, faster down to lower R. VOR: Both eyes open. Horizontal: Fuzziness to clarity reported with horizontal VOR for pen at R side. No issues reported with horizontal VOR for pen at center. Fuzziness reported with hor izontal VOR for pen at L. Vertical: Pt denied fuzziness though reported reliance on R eye wi th vertical VOR for pen at R side. Pt reported loss of pen when chin down, looking up at pen with vertical VOR for pen at center/L side. Pt denied dizziness. Functional Endurance Good participation throughout Cognitive Mood/Behavior: calm, cooperative OT Goal Review Date Most Recent Value STG Review Date 04/18/20 at 04/11/2020 0922 LTG Review Date 04/25/20 at 04/11/2020 0922 Grooming Goal Most Recent Value STG Status met at 04/13/2020 1210 STG [place] Level supervised at 04/11/2020 0922 STG Position standing at 04/11/2020 0922 STG Adaptive Equipment none at 04/11/2020 0922 LTG Status progressing at 04/13/2020 1451 LTG [place] Level modified independent at 04/11/2020 0922 LTG Position standing at 04/11/2020 0922 LTG Adaptive Equipment none at 04/11/2020 0922 Bathing Goal Most Recent Value STG Status progressing at 04/13/2020 1451 STG [place] Level supervised, set up required, verbal cues required at 04/11/2020 092 2 STG Adaptive Equpiment grab bars, shower head, detachable, sponge, long handled, shower ch air, shower chair with back at 04/11/2020 0922 STG Position sitting, standing at 04/11/2020 0922 LTG Status new at 04/11/2020 0922 LTG [place] Level modified independent at 04/11/2020 0922 LTG Adaptive Equpiment grab bars, shower head, detachable, sponge, long handled, shower ch air, shower chair with back at 04/11/2020 0922 LTG Position sitting, standing at 04/11/2020 0922 UB Dressing Goal Most Recent Value STG Status met at 04/12/2020 1158 STG [place] Level supervised, set up required, verbal cues required at 04/11/2020 092 2 STG Adaptive Equipment none at 04/11/2020 0922 LTG Status progressing at 04/13/2020 1451 LTG [place] Level modified independent at 04/11/2020 0922 LTG Adaptive Equipment none at 04/11/2020 0922 LTG Comments including clothing retrieval at 04/12/2020 1158 LB Dressing Goal Most Recent Value STG Status progressing at 04/14/2020 1200 STG [place] Level supervised, set up required, verbal cues required at 04/11/2020 092 2 STG Adaptive Equipment sock-aid, shoe horn, long handled, sisal operator at 04/11/2020 0922 LTG Status new at 04/11/2020 0922 LTG [place] Level modified independent at 04/11/2020 0922 LTG Adaptive Equipment shoe horn, long handled, sock-aid, sisal operator at 04/11/2020 0922 LTG Comments including clothing retrieval at 04/12/2020 1158 Toileting Goal Most Recent Value STG Status met at 04/13/2020 1210 STG [place] Level supervised, set up required, verbal cues required at 04/11/2020 092 2 STG Assistive Device grab bar at 04/11/2020 0922 LTG Status progressing at 04/14/2020 1200 LTG [place] Level modified independent at 04/11/2020 0922 LTG Assistive Device grab bar at 04/11/2020 0922 Toilet Transfer Goal Most Recent Value STG Status met at 04/13/2020 1210 STG [place] Level supervised, set up required, verbal cues required at 04/11/2020 092 2 STG Assistive Device grab bars at 04/11/2020 0922 LTG Status progressing at 04/14/2020 1200 LTG [place] Level modified independent at 04/11/2020 0922 LTG Assistive Device grab bars at 04/11/2020 0922 Tub/Shower Transfer Goal Most Recent Value Tub/Shower Type tub/shower combo at 04/11/2020 0922 STG Status progressing at 04/13/2020 1451 STG [place] Level supervised, set up required, verbal cues required at 04/11/2020 092 2 STG Assistive Device grab bars, shower chair at 04/11/2020 0922 LTG Status new at 04/11/2020 0922 LTG [place] Level modified independent at 04/11/2020 0922 LTG Assistive Device grab bars, shower chair at 04/11/2020 0922 IADL Goal Most Recent Value STG Status new at 04/11/2020 0922 STG Pt will be supervision vcs setup prn for meal preparation task at 04/11/2020 0922 LTG Status new at 04/11/2020 0922 LTG Pt will be Mod I for meal preparation task at 04/11/2020 0922 Vision Goal Most Recent Value STG Status progressing at 04/14/2020 1653 STG Pt will participate in eye exercises to increase ocular alignment, initiate saccadic e ye motion, increase VOR with eye focusing, and decrease diplopia as well as increase depth p erception and spatial relations to improve visual functions for ADLs, functional mobility/tf s. at 04/11/2020 09 LTG Status new at 04/11/2020 0922 LTG Pt will report improvements to visual deficits impact on ADLs and utilize visual compe nsatory strategies indep at 04/11/2020 09 Additional Goals #1 OT Most Recent Value STG Status progressing at 04/14/2020 1200 STG Pt will participate in tasks to increase/improve LUE sensation and coordination. at 0 04/11/2020921 LTG Status revised, new at 04/12/2020 1158 LTG Pt L hand fine motor coordination will be improved as evidenced by L hand performance on the 9 hole peg test in 90 seconds or less. at 04/12/2020 1158 Electronically signed by: Irma Muse OT, 04/14/2020 5:03 PM lan of Care - Carolyn Gomez RN - 04/14/2020 3:58 PM PDT Problem: Adult Inpatient Plan of Care Goal: [...] Fall and Fall-Related Injury Outcome: Ongoing, progressing Problem: Adjustment to Illness (Stroke, Ischemic/Transient Ischemic Attack) Goal: Optimal Coping Outcome: Ongoing, progressing Problem: Bowel Elimination Impaired (Stroke, Ischemic/Transient Ischemic Attack) Goal: Effective Bowel Elimination Outcome: Ongoing, progressing Problem: Cerebral Tissue Perfusion Risk (Stroke, Ischemic/Transient Ischemic Attack) Goal: Optimal Cerebral Tissue Perfusion Outcome: Ongoing, progressing Problem: Eating/Swallowing Impairment (Stroke, Ischemic/Transient Ischemic Attack) Goal: Oral Intake without Aspiration Outcome: Ongoing, progressing Problem: Functional Ability Impaired (Stroke, Ischemic/Transient Ischemic Attack) Goal: Optimal Functional Ability Outcome: Ongoing, progressing Problem: Pain (Stroke, Ischemic/Transient Ischemic Attack) Goal: Acceptable Pain Control Outcome: Ongoing, progressing Problem: Urinary Elimination Impaired (Stroke, Ischemic/Transient Ischemic Attack) Goal: Effective Urinary Elimination Outcome: Ongoing, progressing Problem: Discharge Planning Goal: Patient's discharge needs will be identified in a timely manner Outcome: Ongoing, progressing Goal: Patient will be discharged in a safe manner Outcome: Ongoing, progressing Problem: Self-Care Deficit Goal: Improved Ability to Complete Activities of Daily Living Outcome: Ongoing, progressing Problem: Mobility Impairment Goal: Optimal Mobility Outcome: Ongoing, progressing Problem: Cognitive Impairment Goal: Optimal Functional [place] Outcome: Ongoing, progressing Pt alert and oriented. Calls appropriately for help. Bed/chair alarm on for safety. Lt neg lect and partial lt field cut. CGA w/ transfers. Tolerating fat/chol modified diet. LBM /18 . Lt pronation and drift.Ms 4/5 to LT. Numbness to LT side. lan of Care - Lenora Delgado, Speech Pathologist - 04/14/2020 2:42 PM PDT IRF Speech Therapy Plan of Care Treatment Note Summary: Efren has been participating in speech therapy for treatment of Moderate to sever quoc impaired immediate and delayed memory. Left visual field inattention with reminders need ed to attend to left visual space. Emphasis of session included continuing use of memory n otebook, education on impairments and reason for SAND WORKER services, and scanning with functional reading tasks. Patient demonstrates progress towards functional goals as evidenced by impro cinda recall of recent events, willingness to participate, and use of strategies. Remaining b arriers to Communication and Cognition include comorbidities, severity of impairments. Pt unable to utilize written language to use memory notebook. Able to recall detail on PT s ession that was completed this morning. SAND WORKER wrote in memory notebook for patient. Oriented x 4 independently. When reading memory notebook sheet, minimal verbal reminders needed to scan "all the way to the left". Patient needs continued training and use of scanning strategies to improve functional reading and scanning skills. Pt unable to independently recall correct reasons for needing to participate in SAND WORKER service s, given minimal cues able to generate "memory" and "vision". Needs min verbal cues to provi de explanation on how these impairments impact daily life and communication. Efren will benefit from continued therapeutic intervention to address ongoing impairments an d increase safety and independence. Refer below for specific details regarding specifics of session and impairments. Speech Language Pathology Discharge Recommendations are: Recommended discharge disposition: home with family/caregiver Post discharge speech language pathology recommendation: continue SAND WORKER tx for cognitive-dillon guistic, outpatient therapy Planned Interventions: compensatory strategies, memory, executive function skills, reading , cognitive stimulation, writing, other (see comments)(functional reading tasks) Recommended Frequency: 5 times/wk Patient Status/Goals: Reflects last filed data and may be from multiple contributors. Cognitive Needs reminders why he has ST services Mood/Behavior: cooperative, anxious Orientation: oriented x 4 Arousal Level: opens eyes spontaneously Speech: clear, spontaneous, logical Cognition Goal Most Recent Value STG Status continued, progressing at 04/14/2020 1430 STG Pt will recall to use memory book to compensate for episodic memory impairment with m in cues from SAND WORKER in 3 consecutive sessions. at 04/12/2020 1224 Additional Goals #1 SAND WORKER Most Recent Value STG Status met at 04/14/2020 1430 STG Pt will verbally name 10 items in room from left space to target left visual neglect i ndep. at 04/12/2020 1224 LTG Status new, progressing at 04/14/2020 1430 LTG Pt will complete functional reading tasks with 4/5 success on independent use of scann ing strateges e.g. recalling to scall all the way to left at 04/14/2020 1430 Additional Goals #2 SAND WORKER Most Recent Value STG Status continued at 04/12/2020 1224 STG Patient will use self selected compensatory strategy during structured immediate memor y tasks in 4/5 opportunities with mod cues from SAND WORKER. at 04/12/2020 1224 Additional Goals #3 SAND WORKER Most Recent Value STG Status continued at 04/12/2020 1224 STG Patient will participate in education of compensatory strategies for improved STM at 0 04/12/2020 1224 LTG Status continued at 04/12/2020 1224 LTG Patient will utilize compensatory strategies for improved recall 4/5 opportunities ove r 3 consecutive sessions and min cues at 04/12/2020 1224 Electronically signed by: Lenora Delgado, Speech Pathologist, 04/14/2020 2:42 PMElectronic ally signed by Lenora Delgado Speech Pathologist at 04/14/2020 2:48 PM PDTPlan of Care - Aylin Bustillos, [employer]OR [employer] Student - 04/14/2020 1:45 PM PDT IR[facility] Physical Therapy Plan of Care Treatment Note Summary: Efren has been participating in physical therapy for treatment of Impaired balanc e, gait instability, impaired vision, coordination and sensation on (L) side following CVA . 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 Emphasis of session included neuro re-ed with balance training on airex single leg stance w ith mirror for visual input on midline. Catching/throwing ball while standing on airex from L/R side. Seated on green therapy ball reaching outside Srinivas. Gait training including path fi nding, scanning to L side for obstacle avoidance. Patient demonstrates progress towards functional goals as evidenced by increase awareness o f L sided deficits in vision. Improved pathfinding abilities when walking back to room utili zing signage and room numbers to guide. Pt continues to present with deficits in, hand eye coordination for ball catching and giancarlo ce on L side. RN cleared patient for participation in therapy. Patient was agreeable to therapy. Patient participated without adverse reaction. It is encouraged that the patient be up in chair for all meals. Recommended mobility with nursing: Day Night into the bathroom into the bathroom Gait belt Gait belt stand by assistance contact guard assistance stand by assistance contact guard assistance Remaining barriers to discharge and functional limitations include decreased insight into s afety and deficits, decreased functional activity tolerance, and decreased gait velocity. Efren will benefit from continued therapeutic intervention to address ongoing impairments an d increase safety and independence with activities necessary for safe discharge. Refer jean-pierre valle for specific details regarding functional levels. Physical Therapy Discharge Recommendations are: Recommended discharge disposition: home with assist Post discharge physical therapy recommendation: outpatient therapy Equipment Recommendations: none Planned Interventions: balance training, bed mobility training, gait training, home exerci se program, patient/family education, strengthening, transfer training, stair training, chay r coordination training, neuromuscular re-education Frequency: daily(1-2x/day, IRF) Patient Status/Goals: Reflects last filed data and may be from multiple contributors. Transfers SBA>CGA for safety d/t impaired vision w/ vc for visual scanning. Able to stand from therap y ball in gym with no LOB/significant increase effort Bed-Chair, Level of [place]: stand by assist, contact guard assist, verbal cues requir ed Chair-Bed, Level of [place]: stand by assist, contact guard assist, verbal cues requir ed [id number], Assistive Device: none Sit-Stand, Level of [place]: stand by assist Stand-Sit, Level of [place]: stand by assist, contact guard assist, verbal cues requir ed [id number], Assistive Device: none Toilet, Level of [place]: supervised Toilet, Assistive Device: none Safety Issues: step length decreased, weight-shifting ability decreased, sequencing ability decreased, balance decreased during turns Impairments: impaired balance, impaired vision, sensation decreased, motor control impaired , coordination impaired Gait Very minimal cues for path finding and obstacle avoidance on L side. Bumped into wall on le ft while standing in room with no LoB. Pt verbalizing sighting objects on the horizon to min imizing veering. Level of [place]: contact guard assist, verbal cues required Assistive Device: none Distance (feet): 310', 40' Gait Deviations: stride width increased Safety Issues: balance decreased during turns Impairments: impaired balance, coordination impaired, motor control impaired, sensory feedb ack impaired, impaired vision, postural control impaired Therapeutic Exercise Balance decreased during single leg balance on airex L>R. LOB corrected with hands on rails . decreased ability to catch ball when thrown from L side. Seated exercises: other (see comments)(Seated on green ball w/ stabilizer under. Reaching o utside Srinivas cross body high and low) Repetitions: x10 each side Standing exercises: sidestepping, stepping forward/backward Repetitions: x5 Balance exercises: single LE stance, catch, throw Repetitions: 3 x15 sec for each single LE stance. 20 repetitions of throws in clock co nfiguration infront of pt. Neuromuscular Reeducation: coordination ex, frenkels on the mat (L) hip flex, abd, bent kne e fall out x 5 with emphasis on looking at the leg. PT Goal Review Date Most Recent Value STG Review Date 04/18/20 at 04/11/2020 1108 LTG Review Date 04/25/20 at 04/11/2020 1108 [id number] Goal Most Recent Value STG Status met at 04/14/2020 0935 STG [place] Level supervised at 04/11/2020 1108 STG Assistive Device none at 04/11/2020 1108 LTG Status met at 04/14/2020 0935 LTG [place] Level modified independent at 04/11/2020 1108 LTG Assistive Device none at 04/11/2020 1108 [id number] Goal Most Recent Value STG Status progressing at 04/14/2020 0935 STG [place] Level supervised at 04/11/2020 1108 STG Assistive Device none at 04/11/2020 1108 LTG Status new at 04/11/2020 1108 LTG [place] Level modified independent at 04/11/2020 1108 LTG Assistive Device none at 04/11/2020 1108 Gait Goal Most Recent Value STG Status met at 04/14/2020 0935 STG [place] Level stand by assist at 04/11/2020 1108 STG Assistive Device none at 04/11/2020 1108 STG Distance (feet) 300' at 04/11/2020 1108 LTG Status progressing at 04/14/2020 1345 LTG [place] Level supervised at 04/11/2020 1108 Stair Goal Most Recent Value STG Status progressing at 04/13/2020 1358 STG [place] Level supervised at 04/11/2020 1108 STG Assistive Device 2 rails at 04/11/2020 1108 STG Number of Stairs 12 at 04/11/2020 1108 LTG Status new at 04/11/2020 1108 LTG [place] Level modified independent at 04/11/2020 1108 LTG Assistive Device 2 rails at 04/11/2020 1108 LTG Number of Stairs 12 at 04/11/2020 1108 Additional Goal #1 PT Most Recent Value STG Status progressing at 04/11/2020 1422 STG Pt will demonstrate improve DGI score to 15/24 to reduce fall risk. at 04/11/2020 1108 LTG Status new at 04/11/2020 1108 LTG Improve DGI score to >19/24 to reduce fall rsik. at 04/11/2020 1108 Electronically signed by: Aylin Bustillos BELT CONVEYOR DRIER Student, 04/14/2020 2:22 PM Associated attestation - Alexander Acharya PTA - 04/14/2020 4:22 PM PDTPortions of the evalu [facility] data modeler were performed and entered by Aylin Bustillos, Physical Therapist Duke Bagley, under the direct supervision of Clinical Instructing Ness Physical Therapist Studio Owner. I have reviewed this documentation and agree w/ the treatment provided. Adequat e supervision was given and correct CPT codes have been entered. Electronically signed by: Alexander Acharya, BUSHRA 04/14/2020 4:22 PM Plan of Care - Georgette Robles MSW - 04/14/2020 1:44 PM PDTPhone call from the [facility] would need to be complete d closer to discharge from the hospital. [facility] also stated that if patient needed home health o r DME, would need to go through patient's PCP at the [facility], Latasha Barnard. Electronically signed by: GRAYSON Webster 04/14/2020 1:49 PM lan of Care - Namita Huerta COTA - 12:00 PM PDT IRF Occupational Therapy Plan of Care Treatment Note Summary: Efren has been participating in occupational therapy for treatment of decreased s afety/capacity for indep with ADLs, IADLs, functional mobility/tfs following admission after Ischemic cerebrovascular accident (CVA) . Emphasis of session included sensory reintegrati on for increasing awareness with using L UE during self cares. Patient demonstrates progress towards functional goals as evidenced by his ongoing participation working toward his OT go als . Patient was agreeable to therapy. Patient participated without adverse reaction. It is enco uraged that the patient be up in chair for all meals. Recommended toileting with nursing: Day Night toilet toilet No Assistive Device No Assistive Device stand by assistance and verbal cues stand by assistance and verbal cues Remaining barriers to discharge and functional limitations include decreased insight into s afety and deficits, decreased functional activity tolerance, decreased bed mobility, decreas ed functional transfers, decreased ability to perform ADLs, decreased ability to perform IAD Ls, decreased ability to perform medication management, and not yet able to mobilize at [facility] safe for home discharge. Efren will benefit from continued therapeutic intervention to address ongoing impairments an d increase safety and independence with activities necessary for safe discharge. Refer jean-pierre valle for specific details regarding functional levels. Occupational Therapy Discharge Recommendations are: Recommended discharge disposition: home with assist Post discharge occupational therapy recommendation: home health, other (see comment), outp atient therapy(Will continue to determine pt benefit from post d/c therapy HHOT vs outpatien t, TBD) Equipment Recommendations: sisal operator(Additional equipment TBD) Planned Interventions:ADL retraining, balance training, fine motor coordination training, f unctional endurance training, motor coordination training, neuromuscular re-education, patie nt/family education, transfer training, visual/perceptual retraining, IADL retraining, bed m obility training, ROM (Range of Motion), strengthening, other (see comments)(sensory) Recommended Frequency: (rehab schedule) Patient Status/Goals: Reflects last filed data and may be from multiple contributors. ADLs Pt up in chair, dressed and ready to go for our session, had pt doff his slipper socks, (we jazmin PLATA's) and marita his shoes, He requested to use the bathroom during session. Socks/shoes only, assist to tie only LB Dressing, Level of [place]: minimal assist (75% patient effort) Assistive Device: none LB Dressing Assess/Train, Position: sitting LB Dressing Impairments: impaired vision, decreased flexibility, coordination impaired, mot or control impaired, sensation decreased, impaired balance, impaired functional endurance/ac tivity tolerance Supervision for general safety 2/2 L inatention Toileting, Level of [place]: supervised Assistive Device: none Toileting Assess/Train, Position: standing Toileting Impairments: impaired vision, coordination impaired, impaired functional enduranc e/activity tolerance, sensation decreased Therapeutic Exercise Efren participated with sensory intigration with L UE/hand. provided dry wash cloth, small rough sponge (toothlet), tooth brush, and made a rough (coaban)/smooth (heal foam) for diffe rent textures to rub against posterior hand and arm. Pt reports discomfort in L shoulder w /Shoulder flx. Pt presented w/slight subluxation that may be causing a mild impingement w/s hlr flx. with slight repositioning he is able to raise L arm w/o pain. Transfers SBA for gerneral safety, VC's to look to his L with ambulation. Sit-Stand, Level of [place]: stand by assist Stand-Sit, Level of [place]: stand by assist, verbal cues required [id number], Assistive Device: none Toilet, Level of [place]: supervised Toilet, Assistive Device: none Safety Issues: step length decreased, weight-shifting ability decreased, sequencing ability decreased, balance decreased during turns Impairments: impaired balance, impaired vision, sensation decreased, motor control impaired , coordination impaired OT Goal Review Date Most Recent Value STG Review Date 04/18/20 at 04/11/2020 0922 LTG Review Date 04/25/20 at 04/11/2020 0922 Grooming Goal Most Recent Value STG Status met at 04/13/2020 1210 STG [place] Level supervised at 04/11/2020 0922 STG Position standing at 04/11/2020 0922 STG Adaptive Equipment none at 04/11/2020 0922 LTG Status progressing at 04/13/2020 1451 LTG [place] Level modified independent at 04/11/2020 0922 LTG Position standing at 04/11/2020 0922 LTG Adaptive Equipment none at 04/11/2020 0922 Bathing Goal Most Recent Value STG Status progressing at 04/13/2020 1451 STG [place] Level supervised, set up required, verbal cues required at 04/11/2020 092 2 STG Adaptive Equpiment grab bars, shower head, detachable, sponge, long handled, shower ch air, shower chair with back at 04/11/2020 0922 STG Position sitting, standing at 04/11/2020 0922 LTG Status new at 04/11/2020 0922 LTG [place] Level modified independent at 04/11/2020 0922 LTG Adaptive Equpiment grab bars, shower head, detachable, sponge, long handled, shower ch air, shower chair with back at 04/11/2020 0922 LTG Position sitting, standing at 04/11/2020 0922 UB Dressing Goal Most Recent Value STG Status met at 04/12/2020 1158 STG [place] Level supervised, set up required, verbal cues required at 04/11/2020 092 2 STG Adaptive Equipment none at 04/11/2020 0922 LTG Status progressing at 04/13/2020 1451 LTG [place] Level modified independent at 04/11/2020 0922 LTG Adaptive Equipment none at 04/11/2020 0922 LTG Comments including clothing retrieval at 04/12/2020 1158 LB Dressing Goal Most Recent Value STG Status progressing at 04/14/2020 1200 STG [place] Level supervised, set up required, verbal cues required at 04/11/2020 092 2 STG Adaptive Equipment sock-aid, shoe horn, long handled, sisal operator at 04/11/2020 0922 LTG Status new at 04/11/2020 0922 LTG [place] Level modified independent at 04/11/2020 0922 LTG Adaptive Equipment shoe horn, long handled, sock-aid, sisal operator at 04/11/2020 0922 LTG Comments including clothing retrieval at 04/12/2020 1158 Toileting Goal Most Recent Value STG Status met at 04/13/2020 1210 STG [place] Level supervised, set up required, verbal cues required at 04/11/2020 092 2 STG Assistive Device grab bar at 04/11/2020 0922 LTG Status progressing at 04/14/2020 1200 LTG [place] Level modified independent at 04/11/2020 0922 LTG Assistive Device grab bar at 04/11/2020 0922 Toilet Transfer Goal Most Recent Value STG Status met at 04/13/2020 1210 STG [place] Level supervised, set up required, verbal cues required at 04/11/2020 092 2 STG Assistive Device grab bars at 04/11/2020 0922 LTG Status progressing at 04/14/2020 1200 LTG [place] Level modified independent at 04/11/2020 0922 LTG Assistive Device grab bars at 04/11/2020 0922 Tub/Shower Transfer Goal Most Recent Value Tub/Shower Type tub/shower combo at 04/11/2020 0922 STG Status progressing at 04/13/2020 1451 STG [place] Level supervised, set up required, verbal cues required at 04/11/2020 092 2 STG Assistive Device grab bars, shower chair at 04/11/2020 0922 LTG Status new at 04/11/2020 0922 LTG [place] Level modified independent at 04/11/2020 0922 LTG Assistive Device grab bars, shower chair at 04/11/2020 0922 IADL Goal Most Recent Value STG Status new at 04/11/2020 0922 STG Pt will be supervision vcs setup prn for meal preparation task at 04/11/2020921 LTG Status new at 04/11/2020 0922 LTG Pt will be Mod I for meal preparation task at 04/11/2020921 Vision Goal Most Recent Value STG Status new at 04/11/2020921 STG Pt will participate in eye exercises to increase ocular alignment, initiate saccadic e ye motion, increase VOR with eye focusing, and decrease diplopia as well as increase depth p erception and spatial relations to improve visual functions for ADLs, functional mobility/tf s. at 04/11/2020921 LTG Status new at 04/11/2020921 LTG Pt will report improvements to visual deficits impact on ADLs and utilize visual compe nsatory strategies indep at 04/11/2020921 Additional Goals #1 OT Most Recent Value STG Status progressing at 04/14/2020 1200 STG Pt will participate in tasks to increase/improve LUE sensation and coordination. at 0 04/11/2020921 LTG Status revised, new at 04/12/2020 1158 LTG Pt L hand fine motor coordination will be improved as evidenced by L hand performance on the 9 hole peg test in 90 seconds or less. at 04/12/2020 1158 Electronically signed by: DAWNA Solares, 04/14/2020 3:58 PM atient Care Conference - Wiliam Vanegas MD - 04/14/2020 10:35 AM PDTFormatting of this note might be different from the or iginal. [facility] Individualized Overall Plan of Care Weekly Team Conference Patient Identification Efren Pollack is a 55 y.o. male. : 1965 Admit Date: 04/10/2020 Attending Provider: Wiliam Vanegas,* Primary Care Physician: KORY Galarza Admitting Diagnosis: CVA Team Conference Date: 04/15/2020 Medical Prognosis and need for Rehabilitation Physician oversight and anticipated Rehabilit ation Physician interventions: [place] for functional progress is good. Physician Summary: 1. CVA with left hemiparesis: mild. Main barrier is d/c his sensory loss and field cut -: strength good, function improving. 2. 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 He also tends to ignore the left side -: improving, but still moderate left sided neglect noted, especially with fatigue. 3. Left visual field cut: moderate. Learning to compensate, but still tends to run into th ing on the left -: improving, but still significant problem and probably main barrier to independent and safe living. 4. PTSD: moderately severe, but under control so far with Klonopin, Xanax -04/14: moderate problems over the weekend. He was on atarax also at home, so I ordered [place] t, plus he was on bid klonopin at home and would rather avoid the xanax, so I changed that t o BID. -04/15:moved to other side of building from where helicopters land, as they set off his PTSD . 5. Hypotension: BP down to 102 this morning, as well as in PT, so I cut back on his clonopi ne to .1mg bid and asked OT to check BP when they first see him -04/14: bp improving, still a little low for post CVA, but no symptoms; lowest systolic wa s 110, but transient and no symptoms, still on BK TEDS. -04/15: bp down to 102, then up to 137, no symptoms, continue TEDS 6. Tobacco Abuse: on nicotine patches and doing ok for now. -04/14-: stable on nicotine patches. Rehabilitation Nursing Summary: Pt alert and oriented. Calls appropriately for help. Bed/c hair alarm on for safety. Left neglect and partial left field cut. Contact-guard assist with transfers. Tolerating fat/chol modified diet. LBM 04/14. Left pronation and drift. Muscle st rengths 4/5 to left. Numbness to left side. Safety Management: Elopement/wander risk: No Safety Management Goal: Efren will call out appropriately for assistance and will have no f alls during hospitalization stay Pain Management: Pain ratin-5/10 Pain Management Goal: Efren's pain will be controlled to allow for activity and rest Skin Management: Brooks Score: 19 Skin Management Goal: Clints skin will have no new breakdowns Bladder Management: Bladder Management Goal: Efren will be continent of bladder using urinal and/or BR Bowel Management: Bowel Management Goal: Efren will be continent of bowel using BR Nutrition Management: Nutrition Management Goal: Efren will eat 75-100% most meals and will drink adequate amount fluids Efren is eating 100% of a low fat diet. Fluid intake per I/O shows 8798-0983 mL for the pas t 2 days. Intake overall appears appropriate for meeting his assessed needs. Will continue to f/u to note need for interventions. SPENCER Perrin Nightime Management: Nighttime Management Goal: Efren will report adequate sleep at night Mobility Summary: Patient demonstrates progress towards functional goals as evidenced by increase awareness of L sided deficits in vision. Improved pathfinding abilities when walki ng back to room utilizing signage and room numbers to guide. Pt continues to present with deficits in, hand eye coordination for ball catching and giancarlo ce on L side. PT Equipment Recommendations: none Bed Mobility Section GG: Roll Left and Right Assistance Needed: Independent Physical Assistance Level: 06 - Independent CARE Score: 6 Section GG: Sit to Lying Assistance Needed: Independent Physical Assistance Level: 06 - Independent CARE Score: 6 Section GG: Lying to Sitting on Side of Bed Assistance Needed: Supervision Physical Assistance Level: 04 - Supervision or touching assistance CARE Score: 4 Transfers Section GG: Sit to Stand Assistance Needed: Supervision Physical Assistance Level: 04 - Supervision or touching assistance CARE Score: 4 Section GG: Toilet Transfer Assistance Needed: Supervision, Verbal cues Physical Assistance Level: 04 - Supervision or touching assistance CARE Score: 4 CARE Score Goal: 06 - Independent Section GG: Car Transfer Reason if not Attempted: Environmental limitations CARE Score: 10 Locomotion Section GG: Walk 10 Feet Assistance Needed: Verbal cues, Incidental touching, Supervision Physical Assistance Level: 03 - Partial/moderate assistance CARE Score: 4 Section GG: Walk 50 Feet with Two Turns Assistance Needed: Verbal cues, Incidental touching, Supervision Physical Assistance Level: 03 - Partial/moderate assistance CARE Score: 4 Section GG: Walk 150 Feet Assistance Needed: Supervision, Verbal cues, Incidental touching Physical Assistance Level: 04 - Supervision or touching assistance Reason if not Attempted: Safety concerns CARE Score: 4 Section GG: Walking 10 Feet on Uneven Surfaces Assistance Needed: Incidental touching, Supervision, Verbal cues Physical Assistance Level: 04 - Supervision or touching assistance CARE Score: 4 Stairs Section G Step (Curb) Assistance Needed: Physical assistance Physical Assistance Level: 03 - Partial/moderate assistance CARE Score: 3 Section G Steps Assistance Needed: Supervision, Verbal cues, Incidental touching Physical Assistance Level: 04 - Supervision or touching assistance CARE Score: 4 Section G Steps Assistance Needed: Supervision, Verbal cues, Incidental touching Physical Assistance Level: 04 - Supervision or touching assistance Reason if not Attempted: Medical concerns CARE Score: 4 Picking up object Section GG: Picking Up Object Assistance Needed: Incidental touching Physical Assistance Level: 04 - Supervision or touching assistance CARE Score: 4 PT GOALS PT Goal Review Date Most Recent Value STG Review Date 04/18/20 at 04/11/2020 1108 LTG Review Date 04/25/20 at 04/11/2020 1108 [id number] Goal Most Recent Value STG Status met at 04/14/2020 0935 STG [place] Level supervised at 04/11/2020 1108 STG Assistive Device none at 04/11/2020 1108 LTG Status met at 04/14/2020 0935 LTG [place] Level modified independent at 04/11/2020 1108 LTG Assistive Device none at 04/11/2020 1108 Hdt-[id number]-Kvv Goal Most Recent Value STG Status progressing at 04/14/2020 0935 STG [place] Level supervised at 04/11/2020 1108 STG Assistive Device none at 04/11/2020 1108 LTG Status new at 04/11/2020 1108 LTG [place] Level modified independent at 04/11/2020 1108 LTG Assistive Device none at 04/11/2020 1108 Gait Goal Most Recent Value STG Status met at 04/14/2020 0935 STG [place] Level stand by assist at 04/11/2020 1108 STG Assistive Device none at 04/11/2020 1108 STG Distance (feet) 300' at 04/11/2020 1108 LTG Status progressing at 04/14/2020 1345 LTG [place] Level supervised at 04/11/2020 1108 Stair Goal Most Recent Value STG Status progressing at 04/13/2020 1358 STG [place] Level supervised at 04/11/2020 1108 STG Assistive Device 2 rails at 04/11/2020 1108 STG Number of Stairs 12 at 04/11/2020 1108 LTG Status new at 04/11/2020 1108 LTG [place] Level modified independent at 04/11/2020 1108 LTG Assistive Device 2 rails at 04/11/2020 1108 LTG Number of Stairs 12 at 04/11/2020 1108 Additional Goal #1 PT Most Recent Value STG Status progressing at 04/11/2020 1422 STG Pt will demonstrate improve DGI score to 15/24 to reduce fall risk. at 04/11/2020 1108 LTG Status new at 04/11/2020 1108 LTG Improve DGI score to >19/24 to reduce fall rsik. at 04/11/2020 1108 Self Care Summary: Pt motivated to work with therapies. He is completing self cares with setup/supervision with UB dressing, grooming, toileting, and transfers. Min A is needed wit h LB dressing and for tying shoes. He continues to require VC's to looking to his L with al l mobility, started sensory integration with L UE to improve awareness/use with ADL's. OT Equipment Recommendations: sisal operator(Additional equipment TBD) Eating Section GG: Eating Assistance Needed: Set-up / clean-up Physical Assistance Level: 05 - Setup or cleanup assistance CARE Score: 5 Hygiene Section GG: Oral Hygiene Assistance Needed: Set-up / clean-up Physical Assistance Level: 05 - Setup or cleanup assistance CARE Score: 5 CARE Score Goal: 06 - Independent Section GG: Toileting Hygiene Assistance Needed: Supervision Physical Assistance Level: 04 - Supervision or touching assistance CARE Score: 4 CARE Score Goal: 06 - Independent Section GG: Shower/Bathe Self Assistance Needed: Supervision, Verbal cues, Set-up / clean-up Physical Assistance Level: 04 - Supervision or touching assistance CARE Score: 4 CARE Score Goal: 06 - Independent Dressing Section GG: Upper Body Dressing Assistance Needed: Supervision, Set-up / clean-up Physical Assistance Level: 04 - Supervision or touching assistance CARE Score: 4 CARE Score Goal: 06 - Independent Section GG: Lower Body Dressing Assistance Needed: Physical assistance Physical Assistance Level: 03 - Partial/moderate assistance CARE Score: 3 CARE Score Goal: 06 - Independent Section GG: Putting On/Taking Off Footwear Assistance Needed: Physical assistance Physical Assistance Level: 03 - Partial/moderate assistance CARE Score: 3 CARE Score Goal: 06 - Independent OT Goals OT Goal Review Date Most Recent Value STG Review Date 04/18/20 at 04/11/2020 0922 LTG Review Date 04/25/20 at 04/11/2020 0922 Grooming Goal Most Recent Value STG Status met at 04/13/2020 1210 STG [place] Level supervised at 04/11/2020 0922 STG Position standing at 04/11/2020 0922 STG Adaptive Equipment none at 04/11/2020 0922 LTG Status progressing at 04/13/2020 1451 LTG [place] Level modified independent at 04/11/2020 0922 LTG Position standing at 04/11/2020 0922 LTG Adaptive Equipment none at 04/11/2020 0922 Bathing Goal Most Recent Value STG Status progressing at 04/13/2020 1451 STG [place] Level supervised, set up required, verbal cues required at 04/11/2020 092 2 STG Adaptive Equpiment grab bars, shower head, detachable, sponge, long handled, shower ch air, shower chair with back at 04/11/2020 0922 STG Position sitting, standing at 04/11/2020 0922 LTG Status new at 04/11/2020 0922 LTG [place] Level modified independent at 04/11/2020 0922 LTG Adaptive Equpiment grab bars, shower head, detachable, sponge, long handled, shower ch air, shower chair with back at 04/11/2020 0922 LTG Position sitting, standing at 04/11/2020 0922 UB Dressing Goal Most Recent Value STG Status met at 04/12/2020 1158 STG [place] Level supervised, set up required, verbal cues required at 04/11/2020 092 2 STG Adaptive Equipment none at 04/11/2020 0922 LTG Status progressing at 04/13/2020 1451 LTG [place] Level modified independent at 04/11/2020 0922 LTG Adaptive Equipment none at 04/11/2020 0922 LTG Comments including clothing retrieval at 04/12/2020 1158 LB Dressing Goal Most Recent Value STG Status progressing at 04/14/2020 1200 STG [place] Level supervised, set up required, verbal cues required at 04/11/2020 092 2 STG Adaptive Equipment sock-aid, shoe horn, long handled, sisal operator at 04/11/2020 0922 LTG Status new at 04/11/2020 0922 LTG [place] Level modified independent at 04/11/2020 0922 LTG Adaptive Equipment shoe horn, long handled, sock-aid, sisal operator at 04/11/2020 0922 LTG Comments including clothing retrieval at 04/12/2020 1158 Toileting Goal Most Recent Value STG Status met at 04/13/2020 1210 STG [place] Level supervised, set up required, verbal cues required at 04/11/2020 092 2 STG Assistive Device grab bar at 04/11/2020 0922 LTG Status progressing at 04/14/2020 1200 LTG [place] Level modified independent at 04/11/2020 0922 LTG Assistive Device grab bar at 04/11/2020 0922 Toilet Transfer Goal Most Recent Value STG Status met at 04/13/2020 1210 STG [place] Level supervised, set up required, verbal cues required at 04/11/2020 092 2 STG Assistive Device grab bars at 04/11/2020 0922 LTG Status progressing at 04/14/2020 1200 LTG [place] Level modified independent at 04/11/2020 0922 LTG Assistive Device grab bars at 04/11/2020 0922 Tub/Shower Transfer Goal Most Recent Value Tub/Shower Type tub/shower combo at 04/11/2020 0922 STG Status progressing at 04/13/2020 1451 STG [place] Level supervised, set up required, verbal cues required at 04/11/2020 092 2 STG Assistive Device grab bars, shower chair at 04/11/2020 0922 LTG Status new at 04/11/2020 0922 LTG [place] Level modified independent at 04/11/2020 0922 LTG Assistive Device grab bars, shower chair at 04/11/2020 0922 IADL Goal Most Recent Value STG Status new at 04/11/2020 0922 STG Pt will be supervision vcs setup prn for meal preparation task at 04/11/2020 0922 LTG Status new at 04/11/2020 0922 LTG Pt will be Mod I for meal preparation task at 04/11/2020 0922 Vision Goal Most Recent Value STG Status new at 04/11/2020 0922 STG Pt will participate in eye exercises to increase ocular alignment, initiate saccadic e ye motion, increase VOR with eye focusing, and decrease diplopia as well as increase depth p erception and spatial relations to improve visual functions for ADLs, functional mobility/tf s. at 04/11/2020 0922 LTG Status new at 04/11/2020 0922 LTG Pt will report improvements to visual deficits impact on ADLs and utilize visual compe nsatory strategies indep at 04/11/2020 0922 Additional Goals #1 OT Most Recent Value STG Status progressing at 04/14/2020 1200 STG Pt will participate in tasks to increase/improve LUE sensation and coordination. at 0 04/11/2020 0922 LTG Status revised, new at 04/12/2020 1158 LTG Pt L hand fine motor coordination will be improved as evidenced by L hand performance on the 9 hole peg test in 90 seconds or less. at 04/12/2020 1158 Cognition/Communication Summary: Patient presents with moderate to severe impairments wit h immediate memory, delayed memory, and left visual field inattention impacting functional r eading. Demonstrating emerging use of memory notebook and use of visual scanning bridge construction inspector y strategies. Mini Inventory of Right Brain Injury: Efren scored 29/43 on the MIRBI, indicating a mild moderate severity of cognitive deficit. Section I: Record of Scores Process Sub-Score Score Possible points Visual Processing 11 21 Language Processing 15 18 Emotion and Affect Processing 1 1 General Behavior and Psychic Integrity 2 3 Total 29 43 Section II: Right-Left Differentiation Subscale Score Items 1,2,5,6,14,15,22,24,25,27 7/11 *9 points or below = strong probability of right brain injury Interpretation: Section III: MIRBI Severity Profile 0-7 Profound 8-15 Severe 16-20 Moderate-Severe 21-26 Moderate 27-31 Mild-Moderate 32-37 Mild 38-43 Normal Dysphagia/Swallow: No skilled need in this area at this time SAND WORKER Goals Cognition Goal Most Recent Value STG Status continued, progressing at 04/14/2020 1430 STG Pt will recall to use memory book to compensate for episodic memory impairment with m in cues from SAND WORKER in 3 consecutive sessions. at 04/12/2020 1224 Additional Goals #1 SAND WORKER Most Recent Value STG Status met at 04/14/2020 1430 STG Pt will verbally name 10 items in room from left space to target left visual neglect i ndep. at 04/12/2020 1224 LTG Status new, progressing at 04/14/2020 1430 LTG Pt will complete functional reading tasks with 4/5 success on independent use of scann ing strateges e.g. recalling to scall all the way to left at 04/14/2020 1430 Additional Goals #2 SAND WORKER Most Recent Value STG Status continued at 04/12/2020 1224 STG Patient will use self selected compensatory strategy during structured immediate memor y tasks in 4/5 opportunities with mod cues from SAND WORKER. at 04/12/2020 1224 Additional Goals #3 SAND WORKER Most Recent Value STG Status continued at 04/12/2020 1224 STG Patient will participate in education of compensatory strategies for improved STM at 0 04/12/2020 1224 LTG Status continued at 04/12/2020 1224 LTG Patient will utilize compensatory strategies for improved recall 4/5 opportunities ove r 3 consecutive sessions and min cues at 04/12/2020 1224 Leisure/Community: Therapeutic day pass appropriate: Not needed at this time Education Caregiver training initiated: None has been ordered as of yet, but as Efren nears his antic ipated discharge date his and primary caregiver, Susie, will be scheduled to attend caregiver training to better prepare her for the level of care he will need at discharge Sexuality education initiated: Not needed at this time Other education initiated (see Patient Education activity): Nothing needed at this time Recommended Discharge Equipment none, sisal operator(Additional equipment TBD) Barriers to Discharge Barriers to Discharge: decreased insight into safety and deficits, decreased ability to p erform IADLs and not yet able to mobilize at level safe for home discharge Barrier Resolution Plan: Continue with therapy training and MD to manage medications Post-Discharge Plan Setting: Hany's goal is to return to his home in [place], [place] with his , Susie, marlee s his main caregiver support. Level of Assist Recommended for Discharge: Efren will need 24/7 supervision for the first 7 to 10 days he returns home for risk of falling and minimal assistance with ADL's, mobility, and transfers. Anticipate post discharge services: Home health care PT, Home health care OT and Home a lt care SAND WORKER Prosthetics/Orthotics therapeutic interventions recommended: na Admission Date: 04/10/2020 Projected DC Date: 04/24/27 Team Goals: 1. Mod I transfers 2. Mod I gait and compensates for left neglect 3. Mod I dressing 4. Mod I toileting 5. No orthostasis Participants: MD: Dr. Wiliam Vanegas RN: ISAÍAS Agustin PT: Tabatha Duque, PT; Alexander Acharya, BUSHRA OT: Irma Muse, OTR/L; Namita Huerta, TONEY/L SAND WORKER: Lizet Guillen MS, [facility]-SAND WORKER & Lenora Delgado MA, CCC-SAND WORKER CM/SW: Maria Guo CM Following interdisciplinary discussion and planning, I fully agree with the above. lan of Care - Tabatha Duque, PT - 04/14/2020 9:35 AM PDTFormatting of this note might be different fr om the original. IRF Physical Therapy Plan of Care Treatment Note Summary: Efren has been participating in physical therapy for treatment of Impaired balanc e, gait instability, impaired vision, coordination and sensation on (L) side following CVA . 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 Emphasis of session included bed mobility, gait, transfers training, balance training a nd Neuro Re-education. Patient demonstrates progress towards functional goals as evidenced by inc.awareness towards his (L) side and able to compensate with minimal cuing. Pt just arriaga d 1 episode of bumping into a table on her way out of the bathroom but no LOB. RN cleared patient for participation in therapy. Patient was agreeable to therapy. Patient participated without adverse reaction. RN debriefed on therapy session and patient status. P atient is encouraged to ambulate into hallway with nursing staff. It is encouraged that the patient be up in chair for all meals. Recommended mobility with nursing: Day Night into the bathroom and into the hallway into the bathroom and into the hallway No Assistive Device No Assistive Device stand by assistance stand by assistance Remaining barriers to discharge and functional limitations include decreased functional tra nsfers, decreased gait velocity, stairs at home, demonstrating need for 24/7 supervision, no t yet able to mobilize at level safe for home discharge, [facility] indicating significant impair ment with basic functional mobility, and medical status. Efren will benefit from continued therapeutic intervention to address ongoing impairments an d increase safety and independence with activities necessary for safe discharge. Refer jean-pierre valle for specific details regarding functional levels. Physical Therapy Discharge Recommendations are: Recommended discharge disposition: home with assist Post discharge physical therapy recommendation: outpatient therapy Equipment Recommendations: none Planned Interventions: balance training, bed mobility training, gait training, home exerci se program, patient/family education, strengthening, transfer training, stair training, chay r coordination training, neuromuscular re-education Frequency: daily(1-2x/day, IRF) Patient Status/Goals: Reflects last filed data and may be from multiple contributors. Bed Mobility no physical assistance required. Assistive Device: none Roll Left, Level of [place]: modified independent Roll Right, Level of [place]: modified independent Scoot/Bridge, Level of [place]: modified independent Supine to Sit, Level of [place]: modified independent Sit to Supine, Level of [place]: modified independent Impairments: impaired vision Transfers SBA for safety d/t impaired vision. verbal cues to scan to (L). Pt still tends to turn to wards (R) side to see. Bed-Chair, Level of [place]: stand by assist, verbal cues required Chair-Bed, Level of [place]: stand by assist, verbal cues required [id number], Assistive Device: none Sit-Stand, Level of [place]: stand by assist Stand-Sit, Level of [place]: stand by assist [id number], Assistive Device: none Safety Issues: step length decreased, weight-shifting ability decreased, sequencing ability decreased, balance decreased during turns Impairments: impaired balance, impaired vision, sensation decreased, motor control impaired , coordination impaired Gait able to avoid obstacles with minimal cuing to scan to (L) side. Pt verbalized the things h e's seeing on (L) during gt.traiing. no episodes of colliding to obstacles but tend to veer a little to (L) side. Level of [place]: stand by assist, verbal cues required Assistive Device: none Distance (feet): 500' Gait Deviations: stride width increased Safety Issues: balance decreased during turns(impaired vision) Impairments: impaired balance, coordination impaired, motor control impaired, sensory feedb ack impaired, impaired vision, postural control impaired Therapeutic Exercise missed catching the ball at times when coming from the (L) side. No LOB. Standing exercises: sidestepping, stepping forward/backward Repetitions: x5 Balance exercises: head turns, throw, catch, carry items, step over obstacles(throw/catch b all while side stepping mostly to (L). walked on foam surface while picking up cones and we ights) Repetitions: x 10 mins. Neuromuscular Reeducation: coordination ex, frenkels on the mat (L) hip flex, abd, bent kne e fall out x 5 with emphasis on looking at the leg. PT Goal Review Date Most Recent Value STG Review Date 04/18/20 at 04/11/2020 1108 LTG Review Date 04/25/20 at 04/11/2020 1108 [id number] Goal Most Recent Value STG Status met at 04/14/2020 0935 STG [place] Level supervised at 04/11/2020 1108 STG Assistive Device none at 04/11/2020 1108 LTG Status met at 04/14/2020 0935 LTG [place] Level modified independent at 04/11/2020 1108 LTG Assistive Device none at 04/11/2020 1108 Doc-Aearx-Hot Goal Most Recent Value STG Status progressing at 04/14/2020 0935 STG [place] Level supervised at 04/11/2020 1108 STG Assistive Device none at 04/11/2020 1108 LTG Status new at 04/11/2020 1108 LTG [place] Level modified independent at 04/11/2020 1108 LTG Assistive Device none at 04/11/2020 1108 Gait Goal Most Recent Value STG Status met at 04/14/2020 0935 STG [place] Level stand by assist at 04/11/2020 1108 STG Assistive Device none at 04/11/2020 1108 STG Distance (feet) 300' at 04/11/2020 1108 LTG Status continued at 04/14/2020 0935 LTG [place] Level supervised at 04/11/2020 1108 Stair Goal Most Recent Value STG Status progressing at 04/13/2020 1358 STG [place] Level supervised at 04/11/2020 1108 STG Assistive Device 2 rails at 04/11/2020 1108 STG Number of Stairs 12 at 04/11/2020 1108 LTG Status new at 04/11/2020 1108 LTG [place] Level modified independent at 04/11/2020 1108 LTG Assistive Device 2 rails at 04/11/2020 1108 LTG Number of Stairs 12 at 04/11/2020 1108 Additional Goal #1 PT Most Recent Value STG Status progressing at 04/11/2020 1422 STG Pt will demonstrate improve DGI score to 15/24 to reduce fall risk. at 04/11/2020 1108 LTG Status new at 04/11/2020 1108 LTG Improve DGI score to >19/24 to reduce fall rsik. at 04/11/2020 1108 Electronically signed by: TABATHA DUQUE, PT, 04/14/2020 12:27 PM lan of Care - Lashell Brunson RN - 04/14/2020 1:02 AM PDTA&O x4, CMS intact however pt c/o of numbness/tingling present in the LUE and LLE , NIH scale score of 6 this shift, L hand dexterity loss noted and some ataxia to LUE, posit ashish for L pronator drift upper and lower limbs, strengths all around 4/5, VSS, lungs clear o n RA, bowel tones active x4 (last BM was 04-13-20), passing flatus, denies n/v, up ambulating to the bathroom voiding c/y urine w/o difficulty, calls appropriately and is able to make n eeds known, purposeful rounding performed. Efren c/o a mild headache - medicated w/650mg Tylenol PRN. Will continue to monitor. lan of Care - Asim Rivas RN - 04/13/2020 3:28 PM PDTPt denies pain at this ti me. Pt continues with decreased dexterity to LUE. Pt continues to c/o left side numbness. Pt continues with decreased left side peripheral vision. No new neuro deficits noted at this t lm. Pt is ambulating CGA. Pt is voiding without difficulty. BM today. Tolerating diet well, no swallowing difficulties noted at this time. Drinking fluids. Skin remains intact. Pt has been calling appropriately. Remains free from falls. Problem: Adult Inpatient Plan of Care Goal: [...] Fall and Fall-Related Injury Outcome: Ongoing, progressing Problem: Adjustment to Illness (Stroke, Ischemic/Transient Ischemic Attack) Goal: Optimal Coping Outcome: Ongoing, progressing Problem: Bowel Elimination Impaired (Stroke, Ischemic/Transient Ischemic Attack) Goal: Effective Bowel Elimination Outcome: Ongoing, progressing Problem: Cerebral Tissue Perfusion Risk (Stroke, Ischemic/Transient Ischemic Attack) Goal: Optimal Cerebral Tissue Perfusion Outcome: Ongoing, progressing Problem: Functional Ability Impaired (Stroke, Ischemic/Transient Ischemic Attack) Goal: Optimal Functional Ability Outcome: Ongoing, progressing Problem: Pain (Stroke, Ischemic/Transient Ischemic Attack) Goal: Acceptable Pain Control Outcome: Ongoing, progressing lan of Care - Irma Muse, OT - 04/13/2020 2:51 PM PDTFormatting of this note might be different from the or iginal. IRF Occupational Therapy Plan of Care Treatment Note Summary: Efren has been participating in occupational therapy for treatment of decreased s afety/capacity for indep with ADLs, IADLs, functional mobility/tfs following admission after Ischemic cerebrovascular accident (CVA) . Emphasis of session included toileting standing void, standing grooming, BP check, functional mob/tfs, shower in tub shower with shower wei r, total body dressing. Patient demonstrates progress towards functional goals as evidenced by limited physical assist required overall. RUE BP with BK teds prior to shower Vitals with Orthostatic BP with comments 04/13/2020 SYSTOLIC 118 DIASTOLIC 79 BP Comments dinamap, BK teds, standing Pulse 79 *Pt was then showered without BK teds* RN cleared patient for participation in therapy. Patient was agreeable to therapy. Patient participated without adverse reaction. RN debriefed on therapy session and patient status. I t is encouraged that the patient be up in chair for all meals. Recommended toileting with nursing: Day Night toilet toilet No Assistive Device No Assistive Device stand by assistance stand by assistance Remaining barriers to discharge and functional limitations include decreased insight into s afety and deficits, decreased functional activity tolerance, decreased bed mobility, decreas ed functional transfers, decreased ability to perform ADLs, decreased ability to perform IAD Ls, decreased ability to perform medication management, and medical status. Efren will benefit from continued therapeutic intervention to address ongoing impairments an d increase safety and independence with activities necessary for safe discharge. Refer jean-pierre valle for specific details regarding functional levels. Occupational Therapy Discharge Recommendations are: Recommended discharge disposition: home with assist Post discharge occupational therapy recommendation: home health, other (see comment), outp atient therapy(Will continue to determine pt benefit from post d/c therapy HHOT vs outpatien t, TBD) Equipment Recommendations: sisal operator(Additional equipment TBD) Planned Interventions:ADL retraining, balance training, fine motor coordination training, f unctional endurance training, motor coordination training, neuromuscular re-education, patie nt/family education, transfer training, visual/perceptual retraining, IADL retraining, bed m obility training, ROM (Range of Motion), strengthening, other (see comments)(sensory) Recommended Frequency: (rehab schedule) Patient Status/Goals: Reflects last filed data and may be from multiple contributors. ADLs toileting, standing grooming, and total body dressing surrounding shower in tub shower with shower chair SBA for safety for shower in tub shower with grab bar, shower chair, [facility]. Pt with one inst ance of tipping on shower chair though pt reflexively used grab bar for steadying. Sitting/s tanding throughout shower. no teds Bathing, Level of [place]: stand by assist, verbal cues required, set up required Assistive Device: grab bars, hand-held shower head, shower chair without back Bathing Assess/Train, Position: sitting, standing Bathing Impairments: decreased flexibility, sensation decreased, strength decreased, impair ed balance, motor control impaired, impaired vision, impaired functional endurance/activity tolerance Supervision setup UB dressing UB Dressing, Level of [place]: supervised, set up required Assistive Device: (shower chair) UB Dressing Assess/Train, Position: sitting, standing UB Dressing Impairments: sensation decreased, impaired balance, impaired vision Doffed underwear/pants/socks without assist, he performed half BK teds off, otherwise teds doffed/donned before/after shower by OT. Min A for assist threading R leg for underwear, vcs for correct orientation underwear/pants on. SBA pants up briefs/pants. Grab bar and shower chair use throughout. LB Dressing, Level of [place]: minimal assist (75% patient effort), set up required, v erbal cues required Assistive Device: (shower chair, grab bars) LB Dressing Assess/Train, Position: sitting, standing LB Dressing Impairments: impaired vision, decreased flexibility, coordination impaired, mot or control impaired, sensation decreased, impaired balance, impaired functional endurance/ac tivity tolerance Supervision standing void Toileting, Level of [place]: supervised Assistive Device: none Toileting Assess/Train, Position: standing Toileting Impairments: impaired vision, coordination impaired, impaired functional enduranc e/activity tolerance, sensation decreased Supervision standing hand wash Grooming, Level of [place]: supervised Assistive Device: none Grooming Assess/Train, Position: standing Grooming Impairments: coordination impaired, impaired vision, sensation decreased, impaired balance Functional Endurance Good activity tolerance overall Cognitive Pt pleasantly participatory and cooperative throughout Mood/Behavior: calm, cooperative Orientation: (confirmed name and ) Arousal Level: opens eyes spontaneously Speech: clear, spontaneous, logical Bed Mobility No bed mob this session Transfers SBA during tfs for safety throughout. Supervision for pt standing void at toilet with no gr ab bar use. Supervision standing groom at sink for hand wash. SBA with vcs, grab bar shower chair use, for pt stepping in/out of tub. Ambulated SBA room<>tub shower room, no AD Sit-Stand, Level of [place]: stand by assist Stand-Sit, Level of [place]: stand by assist [id number], Assistive Device: none Tub, Level of [place]: verbal cues required, stand by assist Tub, Assistive Device: grab bars, shower chair Safety Issues: step length decreased, weight-shifting ability decreased, sequencing ability decreased, balance decreased during turns Impairments: impaired balance, impaired vision, sensation decreased, motor control impaired OT Goal Review Date Most Recent Value STG Review Date 04/18/20 at 04/11/2020 0922 LTG Review Date 04/25/20 at 04/11/2020 0922 Grooming Goal Most Recent Value STG Status met at 04/13/2020 1210 STG [place] Level supervised at 04/11/2020 0922 STG Position standing at 04/11/2020 0922 STG Adaptive Equipment none at 04/11/2020 0922 LTG Status progressing at 04/13/2020 1451 LTG [place] Level modified independent at 04/11/2020 0922 LTG Position standing at 04/11/2020 0922 LTG Adaptive Equipment none at 04/11/2020 0922 Bathing Goal Most Recent Value STG Status progressing at 04/13/2020 1451 STG [place] Level supervised, set up required, verbal cues required at 04/11/2020 092 2 STG Adaptive Equpiment grab bars, shower head, detachable, sponge, long handled, shower ch air, shower chair with back at 04/11/2020 0922 STG Position sitting, standing at 04/11/2020 0922 LTG Status new at 04/11/2020 0922 LTG [place] Level modified independent at 04/11/2020 0922 LTG Adaptive Equpiment grab bars, shower head, detachable, sponge, long handled, shower ch air, shower chair with back at 04/11/2020 0922 LTG Position sitting, standing at 04/11/2020 0922 UB Dressing Goal Most Recent Value STG Status met at 04/12/2020 1158 STG [place] Level supervised, set up required, verbal cues required at 04/11/2020 092 2 STG Adaptive Equipment none at 04/11/2020 0922 LTG Status progressing at 04/13/2020 1451 LTG [place] Level modified independent at 04/11/2020 0922 LTG Adaptive Equipment none at 04/11/2020 0922 LTG Comments including clothing retrieval at 04/12/2020 1158 LB Dressing Goal Most Recent Value STG Status progressing at 04/13/2020 1451 STG [place] Level supervised, set up required, verbal cues required at 04/11/2020 092 2 STG Adaptive Equipment sock-aid, shoe horn, long handled, sisal operator at 04/11/2020 0922 LTG Status new at 04/11/2020 0922 LTG [place] Level modified independent at 04/11/2020 0922 LTG Adaptive Equipment shoe horn, long handled, sock-aid, sisal operator at 04/11/2020 0922 LTG Comments including clothing retrieval at 04/12/2020 1158 Toileting Goal Most Recent Value STG Status met at 04/13/2020 1210 STG [place] Level supervised, set up required, verbal cues required at 04/11/2020 092 2 STG Assistive Device grab bar at 04/11/2020 0922 LTG Status progressing at 04/13/2020 1451 LTG [place] Level modified independent at 04/11/2020 0922 LTG Assistive Device grab bar at 04/11/2020 0922 Toilet Transfer Goal Most Recent Value STG Status met at 04/13/2020 1210 STG [place] Level supervised, set up required, verbal cues required at 04/11/2020 092 2 STG Assistive Device grab bars at 04/11/2020 0922 LTG Status progressing at 04/13/2020 1451 LTG [place] Level modified independent at 04/11/2020 0922 LTG Assistive Device grab bars at 04/11/2020 0922 Tub/Shower Transfer Goal Most Recent Value Tub/Shower Type tub/shower combo at 04/11/202022 STG Status progressing at 04/13/2020 1451 STG [place] Level supervised, set up required, verbal cues required at 04/11/2020 092 2 STG Assistive Device grab bars, shower chair at 04/11/2020921 LTG Status new at 04/11/2020921 LTG [place] Level modified independent at 04/11/202022 LTG Assistive Device grab bars, shower chair at 04/11/2020 09 IADL Goal Most Recent Value STG Status new at 04/11/2020921 STG Pt will be supervision vcs setup prn for meal preparation task at 04/11/2020921 LTG Status new at 04/11/2020921 LTG Pt will be Mod I for meal preparation task at 04/11/2020921 Vision Goal Most Recent Value STG Status new at 04/11/2020 09 STG Pt will participate in eye exercises to increase ocular alignment, initiate saccadic e ye motion, increase VOR with eye focusing, and decrease diplopia as well as increase depth p erception and spatial relations to improve visual functions for ADLs, functional mobility/tf s. at 04/11/2020921 LTG Status new at 04/11/2020921 LTG Pt will report improvements to visual deficits impact on ADLs and utilize visual compe nsatory strategies indep at 04/11/2020921 Additional Goals #1 OT Most Recent Value STG Status progressing at 04/13/2020 1210 STG Pt will participate in tasks to increase/improve LUE sensation and coordination. at 0 04/11/2020 0922 LTG Status revised, new at 04/12/2020 1158 LTG Pt L hand fine motor coordination will be improved as evidenced by L hand performance on the 9 hole peg test in 90 seconds or less. at 04/12/2020 1158 Electronically signed by: Irma Muse OT, 04/13/2020 7:15 PM lan of Martha - Aylin Bustillos PTA Student - 03/28 1:58 PM PDT IRF Physical Therapy Plan of Care Treatment Note Summary: Efren has been participating in physical therapy for treatment of Impaired balanc e, gait instability, impaired vision, coordination and sensation on (L) side following CVA . 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 Emphasis of session included safe ambulation SBA>CGA on grass/sidewalk implementing VC for obstacle avoidance, path finding, scanning to L side, spotting a point on the horizon to hans ntain straight path, and arm swing. Stair training CGA with step over pattern. Therex in par allel bars high stepping forward/backward/side. Patient demonstrates progress towards functional goals as evidenced by increase activity to lerance and awareness of impairment of path finding. Patient continues to present with deficits in path finding, obstacle avoidance on L side, p acing to reduce risk of falls. RN cleared patient for participation in therapy. Patient was agreeable to therapy. Patient participated without adverse reaction. It is encouraged that the patient be up in chair for all meals. Recommended mobility with nursing: Day Night into the bathroom bedside commode and into the bathroom 4 Wheel Walker 4 Wheel Walker stand by assistance contact guard assistance stand by assistance contact guard assistance Remaining barriers to discharge and functional limitations include decreased insight into s afety and deficits, decreased functional activity tolerance, decreased bed mobility, decreas ed functional transfers, decreased functional gait distance, and decreased gait velocity. Efren will benefit from continued therapeutic intervention to address ongoing impairments an d increase safety and independence with activities necessary for safe discharge. Refer jean-pierre valle for specific details regarding functional levels. Physical Therapy Discharge Recommendations are: Recommended discharge disposition: home with assist Post discharge physical therapy recommendation: outpatient therapy Equipment Recommendations: none Planned Interventions: balance training, bed mobility training, gait training, home exerci se program, patient/family education, strengthening, transfer training, stair training, chay r coordination training, neuromuscular re-education Frequency: daily(1-2x/day, IRF) Patient Status/Goals: Reflects last filed data and may be from multiple contributors. Transfers All transfers SBA from various surfaces (chair/mat). Bed-Chair, Level of [place]: stand by assist Chair-Bed, Level of [place]: not tested [id number]-[id number], Assistive Device: none Sit-Stand, Level of [place]: stand by assist Stand-Sit, Level of [place]: stand by assist [id number], Assistive Device: none Safety Issues: step length decreased, weight-shifting ability decreased, sequencing ability decreased, balance decreased during turns Impairments: impaired balance, impaired vision, sensation decreased, motor control impaired Gait SBA while ambulating on level surfaces requiring mod VC for path finding, turning/avoiding objects on L, distant targeting to maintain walking path. VC for LUE arm swing. Ambulated ou tside on various surfaces (sidewalk, grass) requiring CGA d/t instability on varied surfaces . Bumped into object on L d/t vision cut on L side. Level of [place]: stand by assist, contact guard assist, verbal cues required, tactile cues required Assistive Device: none Distance (feet): outside ambulation around hospital parking lot Gait Deviations: limb motion velocity decreased, weight-shifting ability decreased(Decrease d L arm swing) Safety Issues: balance decreased during turns, step length decreased Impairments: impaired balance, coordination impaired, motor control impaired, sensory feedb ack impaired, impaired vision, postural control impaired Stairs Pt able to ascend/descend with step-over pattern CGA VC for pacing. Number of Stairs: 12, 6"x8 Handrail Location: both sides Level of [place]: contact guard assist, tactile cues required, verbal cues required, s et up required Assistive Device: 2 rails Technique Used: step over step (ascending), step over step (descending) Safety Issues: balance decreased during turns, weight-shifting ability decreased Impairments: impaired balance, coordination impaired, motor control impaired, impaired visi on, sensory feedback impaired Therapeutic Exercise Step over obstacles in parallell bars forward/backward/sideways Standing exercises: sidestepping, stepping forward/backward Repetitions: x5 Balance exercises: step over obstacles, sidestep, walk backwards PT Goal Review Date Most Recent Value STG Review Date 04/18/20 at 04/11/2020 1108 LTG Review Date 04/25/20 at 04/11/2020 1108 Oxspvt-Lbs-[id number] Goal Most Recent Value STG Status progressing at 04/13/2020 1358 STG [place] Level supervised at 04/11/2020 1108 STG Assistive Device none at 04/11/2020 1108 LTG Status new at 04/11/2020 1108 LTG [place] Level modified independent at 04/11/2020 1108 LTG Assistive Device none at 04/11/2020 1108 Rot-Atruf-Mle Goal Most Recent Value STG Status progressing at 04/13/2020 1358 STG [place] Level supervised at 04/11/2020 1108 STG Assistive Device none at 04/11/2020 1108 LTG Status new at 04/11/2020 1108 LTG [place] Level modified independent at 04/11/2020 1108 LTG Assistive Device none at 04/11/2020 1108 Gait Goal Most Recent Value STG Status progressing at 04/13/2020 1358 STG [place] Level stand by assist at 04/11/2020 1108 STG Assistive Device none at 04/11/2020 1108 STG Distance (feet) 300' at 04/11/2020 1108 LTG Status new at 04/11/2020 1108 LTG [place] Level supervised at 04/11/2020 1108 Stair Goal Most Recent Value STG Status progressing at 04/13/2020 1358 STG [place] Level supervised at 04/11/2020 1108 STG Assistive Device 2 rails at 04/11/2020 1108 STG Number of Stairs 12 at 04/11/2020 1108 LTG Status new at 04/11/2020 1108 LTG [place] Level modified independent at 04/11/2020 1108 LTG Assistive Device 2 rails at 04/11/2020 1108 LTG Number of Stairs 12 at 04/11/2020 1108 Additional Goal #1 PT Most Recent Value STG Status progressing at 04/11/2020 1422 STG Pt will demonstrate improve DGI score to 15/24 to reduce fall risk. at 04/11/2020 1108 LTG Status new at 04/11/2020 1108 LTG Improve DGI score to >19/24 to reduce fall rsik. at 04/11/2020 1108 Electronically signed by: Aylin Bustillos PTA Student, 04/13/2020 2:39 PM Associated attestation - Alexander Acharya PTA - 04/13/2020 3:07 PM PDTPortions of the evalu ation data modeler were performed and entered by Aylin Bustillos Physical Therapist Assistan t Student, under the direct supervision of Clinical Instructing Liscensed Physical Therapist Studio Owner. I have reviewed this documentation and agree w/ the treatment provided. Adequat e supervision was given and correct CPT codes have been entered. Electronically signed by: Alexander Acharya, [employer]T CONVEYOR DRIER 04/13/2020 3:07 PMPlan of Care - Micha Irma Danelle, OT - 04/13/2020 12:10 PM PDT IRF Occupational Therapy Plan of Care Treatment Note Summary: Efren has been participating in occupational therapy for treatment of decreased s afety/capacity for indep with ADLs, IADLs, functional mobility/tfs following admission after Ischemic cerebrovascular accident (CVA) . Emphasis of session included functional mob/tfs, toileting, standing grooming, theraputty therex for strengthening/FMC. Patient demonstrate s progress towards functional goals as evidenced by met STGs for grooming, toileting/toilet tfs. RN cleared patient for participation in therapy. Patient was agreeable to therapy. Patient participated without adverse reaction. RN debriefed on therapy session and patient status. I t is encouraged that the patient be up in chair for all meals. Recommended toileting with nursing: Day Night toilet toilet No Assistive Device No Assistive Device supervision / set-up supervision / set-up Remaining barriers to discharge and functional limitations include decreased insight into s afety and deficits, decreased functional activity tolerance, decreased bed mobility, decreas ed functional transfers, decreased ability to perform ADLs, decreased ability to perform IAD Ls, decreased ability to perform medication management, and medical status. Efren will benefit from continued therapeutic intervention to address ongoing impairments an d increase safety and independence with activities necessary for safe discharge. Refer jean-pierre valle for specific details regarding functional levels. Occupational Therapy Discharge Recommendations are: Recommended discharge disposition: home with assist Post discharge occupational therapy recommendation: home health, other (see comment), outp atient therapy(Will continue to determine pt benefit from post d/c therapy HHOT vs outpatien t, TBD) Equipment Recommendations: sisal operator(Additional equipment TBD) Planned Interventions:ADL retraining, balance training, fine motor coordination training, f unctional endurance training, motor coordination training, neuromuscular re-education, patie nt/family education, transfer training, visual/perceptual retraining, IADL retraining, bed m obility training, ROM (Range of Motion), strengthening, other (see comments)(sensory) Recommended Frequency: (rehab schedule) Patient Status/Goals: Reflects last filed data and may be from multiple contributors. ADLs toileting, standing grooming Supervision for x2 standing voids at toilet Toileting, Level of [place]: supervised Assistive Device: none Toileting Assess/Train, Position: standing Toileting Impairments: impaired vision, coordination impaired, impaired functional enduranc e/activity tolerance, sensation decreased Supervision for standing grooming at sink x2 to wash hands after x2 toileting occurrences Grooming, Level of [place]: supervised Assistive Device: none Grooming Assess/Train, Position: standing Grooming Impairments: coordination impaired, impaired vision, sensation decreased, impaired balance Therapeutic Exercise Pt participatory for red theraputty practice of finger hook, full surveying teacher, finger extension, f allie spread, finger scissor, finger pinch, scissor spread, thumb extension, thumb press, th umb adduction, thumb pinch strengthening and three jaw jarett pinch. OT provided demonstratio n, vcs throughout for encouragement of accurate exercise execution. Pt also participatory fo r picking up x3 cylinder beads and x3 disk beads off table and into container with L hand. P t then removed the x3 cylinder beads and x3 disk beads from theraputty with encouragement to use L hand, though R hand also assisting. Disk beads were difficult to locate in the therap utty, thus these were exchanged end of session for x3 rounder beads. Discussed with pt not o verworking hands by excessive theraputty exercises. Functional Endurance Good activity tolerance overall. Cognitive Pt pleasantly participatory and cooperative throughout Mood/Behavior: calm, cooperative Orientation: (confirmed name and ) Arousal Level: opens eyes spontaneously Speech: clear, spontaneous, logical Bed Mobility No bed mob this session Transfers SBA for chair sit<>stands this session, supervision for standing void at toilet and standin g grooming at sink. Pt ambulated room<>family room for therapy. Vcs for careful walking thro ughout. Pt did bump into cart at L side when returning family room>room and also started spenser emerson by his room, required vcs for awareness to where his room is. Sit-Stand, Level of [place]: stand by assist Stand-Sit, Level of [place]: stand by assist [id number], Assistive Device: none Toilet, Level of [place]: stand by assist Toilet, Assistive Device: grab bars Safety Issues: step length decreased, weight-shifting ability decreased, sequencing ability decreased, balance decreased during turns Impairments: impaired balance, impaired vision, sensation decreased, motor control impaired OT Goal Review Date Most Recent Value STG Review Date 04/18/20 at 04/11/2020921 LTG Review Date 04/25/20 at 04/11/2020 0922 Grooming Goal Most Recent Value STG Status met at 04/13/2020 1210 STG [place] Level supervised at 04/11/202022 STG Position standing at 04/11/2020921 STG Adaptive Equipment none at 04/11/2020921 LTG Status new at 04/11/2020921 LTG [place] Level modified independent at 04/11/2020921 LTG Position standing at 04/11/2020921 LTG Adaptive Equipment none at 04/11/2020921 Bathing Goal Most Recent Value STG Status progressing [Supervised today though for sponge bathing] at 04/12/2020 1158 STG [place] Level supervised, set up required, verbal cues required at 04/11/2020 092 2 STG Adaptive Equpiment grab bars, shower head, detachable, sponge, long handled, shower ch air, shower chair with back at 04/11/2020921 STG Position sitting, standing at 04/11/2020921 LTG Status new at 04/11/2020921 LTG [place] Level modified independent at 04/11/2020921 LTG Adaptive Equpiment grab bars, shower head, detachable, sponge, long handled, shower ch air, shower chair with back at 04/11/2020 09 LTG Position sitting, standing at 04/11/2020 0922 UB Dressing Goal Most Recent Value STG Status met at 04/12/2020 1158 STG [place] Level supervised, set up required, verbal cues required at 04/11/2020 092 2 STG Adaptive Equipment none at 04/11/2020 0922 LTG Status revised at 04/12/2020 1158 LTG [place] Level modified independent at 04/11/202022 LTG Adaptive Equipment none at 04/11/2020 0922 LTG Comments including clothing retrieval at 04/12/2020 1158 LB Dressing Goal Most Recent Value STG Status revised at 04/12/2020 1158 STG [place] Level supervised, set up required, verbal cues required at 04/11/2020 092 2 STG Adaptive Equipment sock-aid, shoe horn, long handled, sisal operator at 04/11/2020 0922 LTG Status new at 04/11/2020 0922 LTG [place] Level modified independent at 04/11/2020 0922 LTG Adaptive Equipment deepak gordon handled, sock-aid, sisal operator at 04/11/2020 0922 LTG Comments including clothing retrieval at 04/12/2020 1158 Toileting Goal Most Recent Value STG Status met at 04/13/2020 1210 STG [place] Level supervised, set up required, verbal cues required at 04/11/2020 092 2 STG Assistive Device grab bar at 04/11/2020 0922 LTG Status new at 04/11/2020 0922 LTG [place] Level modified independent at 04/11/2020 0922 LTG Assistive Device grab bar at 04/11/2020 0922 Toilet Transfer Goal Most Recent Value STG Status met at 04/13/2020 1210 STG [place] Level supervised, set up required, verbal cues required at 04/11/2020 092 2 STG Assistive Device grab bars at 04/11/2020 0922 LTG Status new at 04/11/2020 0922 LTG [place] Level modified independent at 04/11/2020 0922 LTG Assistive Device grab bars at 04/11/2020 0922 Tub/Shower Transfer Goal Most Recent Value Tub/Shower Type tub/shower combo at 04/11/2020 0922 STG Status progressing at 04/11/2020 1712 STG [place] Level supervised, set up required, verbal cues required at 04/11/2020 092 2 STG Assistive Device grab bars, shower chair at 04/11/2020 0922 LTG Status new at 04/11/2020 0922 LTG [place] Level modified independent at 04/11/2020 0922 LTG Assistive Device grab bars, shower chair at 04/11/2020 0922 IADL Goal Most Recent Value STG Status new at 04/11/2020 0922 STG Pt will be supervision vcs setup prn for meal preparation task at 04/11/2020 0922 LTG Status new at 04/11/2020 0922 LTG Pt will be Mod I for meal preparation task at 04/11/2020 0922 Vision Goal Most Recent Value STG Status new at 04/11/2020 0922 STG Pt will participate in eye exercises to increase ocular alignment, initiate saccadic e ye motion, increase VOR with eye focusing, and decrease diplopia as well as increase depth p erception and spatial relations to improve visual functions for ADLs, functional mobility/tf s. at 04/11/2020 0922 LTG Status new at 04/11/2020 0922 LTG Pt will report improvements to visual deficits impact on ADLs and utilize visual compe nsatory strategies indep at 04/11/2020 09 Additional Goals #1 OT Most Recent Value STG Status progressing at 04/13/2020 1210 STG Pt will participate in tasks to increase/improve LUE sensation and coordination. at 0 04/11/2020 09 LTG Status revised, new at 04/12/2020 1158 LTG Pt L hand fine motor coordination will be improved as evidenced by L hand performance on the 9 hole peg test in 90 seconds or less. at 04/12/2020 1158 Electronically signed by: Irma Muse OT, 04/13/2020 12:39 PM lan of Care - Alexander Acharya, BELT CONVEYOR DRIER - 04/13/2020 9:20 AM PDT IRF Physical Therapy Plan of Care Treatment Note Summary: Efren has been participating in physical therapy for treatment of Impaired balanc e, gait instability, impaired vision, coordination and sensation on (L) side following CVA . 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 Emphasis of session included transfer training, gt training, there ex for LE/UE strengtheni ng, reciprocal patterning, ROM. Patient demonstrates progress towards functional goals as e videnced by slight improved LUE arm swing with ambulation but still require ~80-85% vc/tc wi th distraction, improving consistency,sequencing and sit<>stand activities with pt display f air+ return demo for LUE placement throughout session. Pt cont to present with reduced safety awareness and slight impulsivity with upright activi ties, L sided weakness, L sided drift with ambulation/standing, L sided visual field cut and inattention. RN cleared patient for participation in therapy. Patient was agreeable to therapy. Patient participated without adverse reaction. RN debriefed on therapy session and patient status. P atient is encouraged to ambulate into hallway with nursing staff. It is encouraged that the patient be up in chair for all meals. Recommended mobility with nursing: Day Night into the bathroom and into the hallway into the bathroom Gait Belt Gait Belt stand by assistance contact guard assistance and verbal cues and tactile cues contact guar d assistance and verbal cues and tactile cues Remaining barriers to discharge and functional limitations include decreased functional act ivity tolerance, decreased bed mobility, decreased functional transfers, decreased functiona l gait distance, decreased gait velocity, stairs at home, demonstrating need for 24/7 superv ision, not yet able to mobilize at level safe for home discharge, [facility] indicating significa nt impairment with basic functional mobility, and medical status. Efren will benefit from continued therapeutic intervention to address ongoing impairments an d increase safety and independence with activities necessary for safe discharge. Refer jean-pierre valle for specific details regarding functional levels. Physical Therapy Discharge Recommendations are: Recommended discharge disposition: home with assist Post discharge physical therapy recommendation: outpatient therapy Equipment Recommendations: none Planned Interventions: balance training, bed mobility training, gait training, home exerci se program, patient/family education, strengthening, transfer training, stair training, chay r coordination training, neuromuscular re-education Frequency: daily(1-2x/day, IRF) Patient Status/Goals: Reflects last filed data and may be from multiple contributors. Bed Mobility NT, pt upright in chair and request to return to chair Transfers SBA, general safety d/t L sided drift/lean in prolong standing, extra time/effort d/t L haylie ed weakness, L lateral shift, vc for visual targeting, upright posture, sequencing, safety, pacing Bed-Chair, Level of [place]: not tested Chair-Bed, Level of [place]: not tested [id number], Assistive Device: none Sit-Stand, Level of [place]: stand by assist, verbal cues required, set up required Stand-Sit, Level of [place]: stand by assist, verbal cues required [id number], Assistive Device: gait belt Safety Issues: step length decreased, weight-shifting ability decreased, sequencing ability decreased, balance decreased during turns Impairments: impaired balance, impaired vision, sensation decreased, motor control impaired Gait SBA with level surfaces throughout session, extra time/effort d/t L sided weakness, L sided drifting, general safety d/t L lateral instability, L visual cut, L inattention, reduced mi dline orientation, vc for distant targeting, LUE arm swing, upright posture, pacing, complet e scanning to L for obstacle avoidance and path finding activities, tc for arm swing 15% of time Level of [place]: stand by assist, verbal cues required, set up required Assistive Device: gait belt Distance (feet): level surfaces with emphasis on posture, seqeuncing, arm swing, L sided sc anning Gait Deviations: stride width increased, cti-pj-jzeyn clearance decreased, limb motion [facility] decreased Safety Issues: balance decreased during turns, step length decreased(L visual feild cut, L side inattention) Impairments: impaired balance, coordination impaired, motor control impaired, sensory feedb ack impaired, impaired vision, postural control impaired Balance slight improvements with level surfaces within hospital Sitting Balance: Static: normal balance Sitting Balance: Dynamic: normal balance Standing Balance: Static: good balance Standing Balance: Dynamic: fair balance(+) Therapeutic Exercise recumbent bike, clarence, course 1, lv 2.0, for reciprocal patterning for LE/UE, L UE/LE stren gthening/ROM [id number], static standing on airex mat ~8mins, normal Srinivas, narrow Srinivas, split lane dem with UE and without upper extremity support, ~30 without UE support for narrow Sirnivas and s plit tandem with LLE back this session Functional Endurance good with mild bouts of ambulation, secondary d/t instability to L, L visual field cut and L inattention PT Goal Review Date Most Recent Value STG Review Date 04/18/20 at 04/11/2020 1108 LTG Review Date 04/25/20 at 04/11/2020 1108 [id number] Goal Most Recent Value STG Status progressing at 04/11/2020 1422 STG [place] Level supervised at 04/11/2020 1108 STG Assistive Device none at 04/11/2020 1108 LTG Status new at 04/11/2020 1108 LTG [place] Level modified independent at 04/11/2020 1108 LTG Assistive Device none at 04/11/2020 1108 Ikh-Ivayw-Qgc Goal Most Recent Value STG Status progressing at 04/13/2020 0920 STG [place] Level supervised at 04/11/2020 1108 STG Assistive Device none at 04/11/2020 1108 LTG Status new at 04/11/2020 1108 LTG [place] Level modified independent at 04/11/2020 1108 LTG Assistive Device none at 04/11/2020 1108 Gait Goal Most Recent Value STG Status progressing at 04/13/2020 0920 STG [place] Level stand by assist at 04/11/2020 1108 STG Assistive Device none at 04/11/2020 1108 STG Distance (feet) 300' at 04/11/2020 1108 LTG Status new at 04/11/2020 1108 LTG [place] Level supervised at 04/11/2020 1108 Stair Goal Most Recent Value STG Status progressing at 04/12/2020 1624 STG [place] Level supervised at 04/11/2020 1108 STG Assistive Device 2 rails at 04/11/2020 1108 STG Number of Stairs 12 at 04/11/2020 1108 LTG Status new at 04/11/2020 1108 LTG [place] Level modified independent at 04/11/2020 1108 LTG Assistive Device 2 rails at 04/11/2020 1108 LTG Number of Stairs 12 at 04/11/2020 1108 Additional Goal #1 PT Most Recent Value STG Status progressing at 04/11/2020 1422 STG Pt will demonstrate improve DGI score to 15/24 to reduce fall risk. at 04/11/2020 1108 LTG Status new at 04/11/2020 1108 LTG Improve DGI score to >19/24 to reduce fall rsik. at 04/11/2020 1108 Electronically signed by: Alexander Acharya PTA, 04/13/2020 12:34 PM lan of Daisy Sheikh RN - 04/13/2020 3 :31 AM PDTPt [id number] slept well t/o night ,using urinal ,bed alarm in place no falls this shif t. Pt continues with L side numbness and L arm slight weakness with decreased dexterity. Pt also has reduced peripheral vision L eye but stated improving. Pt sba assist to br and chair . Pt also has some decrease body space perception/ awareness. Pt reported anxiety last nigh t klonopin given. Pt slept well between cares, frequent rounding maintainedElectronically si gned by Daisy Morrow RN at 04/13/2020 3:37 AM PDTPlan of Alexander Girard PTA - 4:24 PM PDT IRF Physical Therapy Plan of Care Treatment Note Summary: Efren has been participating in physical therapy for treatment of Impaired balanc e, gait instability, impaired vision, coordination and sensation on (L) side following CVA . 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 Emphasis of session included transfer training, gt training on dynamic/level surfaces, incl ine/decline surfaces, progression toward community level distances and stair and curb step t raining. Patient demonstrates progress towards functional goals as evidenced by min improve d sequencing for LUE arm swing in ambulation and obstacle avoidance with min cueing this ses xochilt, pt garry to complete ambulation on dynamic grass surface and incline/decline sidewalk s urfaces with CGA and cueing this session and no LoB or adverse event. Pt cont to present with L visual field cut vs L inattention with mod/max cueing throughout to scanning to the L for obstacle avoidance and to reduced L sided drifting with ambulation, cueing throughout session for safety, sequencing, upright posture and pacing this session. RN cleared patient for participation in therapy. Patient was agreeable to therapy. Patient participated without adverse reaction. Patient is encouraged to ambulate into hallway with n ursing staff. It is encouraged that the patient be up in chair for all meals. Recommended mobility with nursing: Day Night into the bathroom and into the hallway into the bathroom No Assistive Device No Assistive Device contact guard assistance contact guard assistance Remaining barriers to discharge and functional limitations include decreased functional act ivity tolerance, decreased bed mobility, decreased functional transfers, decreased functiona l gait distance, decreased gait velocity, stairs at home, demonstrating need for 24/7 superv ision, not yet able to mobilize at level safe for home discharge, [facility] indicating significa nt impairment with basic functional mobility, and medical status. Efren will benefit from continued therapeutic intervention to address ongoing impairments an d increase safety and independence with activities necessary for safe discharge. Refer jean-pierre valle for specific details regarding functional levels. Physical Therapy Discharge Recommendations are: Recommended discharge disposition: home with assist Post discharge physical therapy recommendation: outpatient therapy Equipment Recommendations: none Planned Interventions: balance training, bed mobility training, gait training, home exerci se program, patient/family education, strengthening, transfer training, stair training, chay r coordination training, neuromuscular re-education Frequency: daily(1-2x/day, IRF) Patient Status/Goals: Reflects last filed data and may be from multiple contributors. Bed Mobility NT d/t pt upright in chair and back to chair for dinner Transfers SBA throughout session for safety, pacing, sequencing Bed-Chair, Level of [place]: not tested Chair-Bed, Level of [place]: not tested Mqk-Dnxja-Owi, Assistive Device: none Sit-Stand, Level of [place]: stand by assist, verbal cues required, set up required Stand-Sit, Level of [place]: stand by assist, verbal cues required, set up required Vxx-Cauld-Utr, Assistive Device: gait belt Safety Issues: step length decreased, weight-shifting ability decreased, sequencing ability decreased, balance decreased during turns Impairments: impaired balance, impaired vision, sensation decreased, motor control impaired Gait CGA with outside ambulation and gt training on grass this session for safety, and min insta bility, vc for L arm swing, horizon targeting, upright posture, midline orientation Level of [place]: contact guard assist, stand by assist, verbal cues required, set up required, tactile cues required Assistive Device: gait belt Distance (feet): grass surfaces, sidewalk and decline/incline surfaces this Gait Deviations: stride width increased, fcm-gd-[id number] clearance decreased, limb motion [place] decreased Safety Issues: balance decreased during turns, step length decreased(L visual feild cut vs L inattention) Impairments: impaired balance, coordination impaired, motor control impaired, sensory feedb ack impaired, impaired vision, postural control impaired Stairs pt garry to place LUE with cueing for scanning to L, pt able to complete ascending/descendin g with step-over patterning, CGA throughout with stair and curb training this session Number of Stairs: 12, 6" x3 Handrail Location: both sides Level of [place]: contact guard assist, tactile cues required, verbal cues required, s et up required Assistive Device: 2 rails Technique Used: step over step (ascending), step over step (descending) Safety Issues: balance decreased during turns, weight-shifting ability decreased Impairments: impaired balance, coordination impaired, motor control impaired, impaired visi on, sensory feedback impaired Balance CGA with curb training and grass ambulation Sitting Balance: Static: normal balance Sitting Balance: Dynamic: normal balance Standing Balance: Static: good balance Standing Balance: Dynamic: fair balance(+) Therapeutic Exercise path finding and community level distances, trial grass surfaces, incline/decline/level haylie ewalk surfaces ~35mins Functional Endurance good throughout session with increasing toward community level activities/distances PT Goal Review Date Most Recent Value STG Review Date 04/18/20 at 04/11/2020 1108 LTG Review Date 04/25/20 at 04/11/2020 1108 Qnencf-Qep-Tekzmg Goal Most Recent Value STG Status progressing at 04/11/2020 1422 STG [place] Level supervised at 04/11/2020 1108 STG Assistive Device none at 04/11/2020 1108 LTG Status new at 04/11/2020 1108 LTG [place] Level modified independent at 04/11/2020 1108 LTG Assistive Device none at 04/11/2020 1108 Hza-Illmq-Qgu Goal Most Recent Value STG Status progressing at 04/12/2020 1624 STG [place] Level supervised at 04/11/2020 1108 STG Assistive Device none at 04/11/2020 1108 LTG Status new at 04/11/2020 1108 LTG [place] Level modified independent at 04/11/2020 1108 LTG Assistive Device none at 04/11/2020 1108 Gait Goal Most Recent Value STG Status progressing at 04/12/2020 1624 STG [place] Level stand by assist at 04/11/2020 1108 STG Assistive Device none at 04/11/2020 1108 STG Distance (feet) 300' at 04/11/2020 1108 LTG Status new at 04/11/2020 1108 LTG [place] Level supervised at 04/11/2020 1108 Stair Goal Most Recent Value STG Status progressing at 04/12/2020 1624 STG [place] Level supervised at 04/11/2020 1108 STG Assistive Device 2 rails at 04/11/2020 1108 STG Number of Stairs 12 at 04/11/2020 1108 LTG Status new at 04/11/2020 1108 LTG [place] Level modified independent at 04/11/2020 1108 LTG Assistive Device 2 rails at 04/11/2020 1108 LTG Number of Stairs 12 at 04/11/2020 1108 Additional Goal #1 PT Most Recent Value STG Status progressing at 04/11/2020 1422 STG Pt will demonstrate improve DGI score to 15/24 to reduce fall risk. at 04/11/2020 1108 LTG Status new at 04/11/2020 1108 LTG Improve DGI score to >19/24 to reduce fall rsik. at 04/11/2020 1108 Electronically signed by: Alexander Acharya PTA, 04/12/2020 5:26 PM lan of Care - Asim Rivas RN - 04/12/2020 2 :58 PM PDTPt denies pain at this time. Pt continues with decreased dexterity to LUE. Pt cont inues to c/o left side numbness. Pt continues with decreased left side peripheral vision. No new neuro deficits noted at this time. Pt is ambulating CGA. Pt is voiding without difficul ty. BM today. Tolerating diet well. Drinking fluids. Skin remains intact. Remains free from falls. Problem: Adult Inpatient Plan of Care Goal: [...] Fall and Fall-Related Injury Outcome: Ongoing, progressing Problem: Adjustment to Illness (Stroke, Ischemic/Transient Ischemic Attack) Goal: Optimal Coping Outcome: Ongoing, progressing Problem: Bowel Elimination Impaired (Stroke, Ischemic/Transient Ischemic Attack) Goal: Effective Bowel Elimination Outcome: Ongoing, progressing Problem: Cerebral Tissue Perfusion Risk (Stroke, Ischemic/Transient Ischemic Attack) Goal: Optimal Cerebral Tissue Perfusion Outcome: Ongoing, progressing Problem: Eating/Swallowing Impairment (Stroke, Ischemic/Transient Ischemic Attack) Goal: Oral Intake without Aspiration Outcome: Ongoing, progressing Problem: Functional Ability Impaired (Stroke, Ischemic/Transient Ischemic Attack) Goal: Optimal Functional Ability Outcome: Ongoing, progressing Problem: Pain (Stroke, Ischemic/Transient Ischemic Attack) Goal: Acceptable Pain Control Outcome: Ongoing, progressing lan of Care - Irma Muse OT - 04/12/2020 11:58 AM PDTFormatting of this note might be different from the or iginal. IRF Occupational Therapy Plan of Care Treatment Note Summary: Efren has been participating in occupational therapy for treatment of decreased s afety/capacity for indep with ADLs, IADLs, functional mobility/tfs following admission after Ischemic cerebrovascular accident (CVA) . Emphasis of session included BP checks, function al mob/tfs, toileting, UB sponge bathing, dynamometer and 9 hole peg testing. Patient jeni trevizo progress towards functional goals as evidenced by met UB dressing STG . This OT prov ided revisions to LTGs for UB/LB dressing to include clothing retrieval as well as revised F MC goal to include 9 hole peg test as measure of progress. RUE dinamap Bps with BK teds Vitals with Orthostatic BP with comments 04/12/2020 BP sitting 111/79 HR sitting 59 BP standing 106/65 After approx 3 min standing due to dinamap error reading after 1.5 min reading attempt HR standing 69 Patient was agreeable to therapy. Patient participated without adverse reaction. RN debrief ed on therapy session and patient status. It is encouraged that the patient be up in chair f or all meals. Recommended toileting with nursing: Day Night toilet toilet No Assistive Device No Assistive Device stand by assistance stand by assistance Remaining barriers to discharge and functional limitations include decreased insight into s afety and deficits, decreased functional activity tolerance, decreased bed mobility, decreas ed functional transfers, decreased ability to perform ADLs, decreased ability to perform IAD Ls, decreased ability to perform medication management, not yet able to mobilize at level sa fe for home discharge, and medical status. Efren will benefit from continued therapeutic intervention to address ongoing impairments an d increase safety and independence with activities necessary for safe discharge. Refer jean-pierre valle for specific details regarding functional levels. Occupational Therapy Discharge Recommendations are: Recommended discharge disposition: home with assist Post discharge occupational therapy recommendation: home health, other (see comment), outp atient therapy(Will continue to determine pt benefit from post d/c therapy HHOT vs outpatien t, TBD) Equipment Recommendations: sisal operator(Additional equipment TBD) Planned Interventions:ADL retraining, balance training, fine motor coordination training, f unctional endurance training, motor coordination training, neuromuscular re-education, patie nt/family education, transfer training, visual/perceptual retraining, IADL retraining, bed m obility training, ROM (Range of Motion), strengthening, other (see comments)(sensory) Recommended Frequency: (rehab schedule) Patient Status/Goals: Reflects last filed data and may be from multiple contributors. ADLs total body dressing surrounding shower in tub shower Pt performed UB sponge bathing from standing at sink with supervision Bathing, Level of [place]: supervised Assistive Device: none Bathing Assess/Train, Position: standing Bathing Impairments: decreased flexibility, sensation decreased, strength decreased, impair ed balance, motor control impaired, impaired vision Supervision for doffing/donning shirt change from standing at sink UB Dressing, Level of [place]: supervised Assistive Device: none UB Dressing Assess/Train, Position: sitting, standing UB Dressing Impairments: sensation decreased, impaired balance, impaired vision SBA with incidental CGA surrounding brief doffing/donning and pant doffing/donning. Pt was showered in BK teds for BP safety, pt able to bring wet BK teds down to ankle after shower, then doffed rest of way by OT and donned by OT after shower. Pt able to perform mgmt of sock s off/on without physical assist, required sock aide for L sock donning. LB Dressing, Level of [place]: minimal assist (75% patient effort), set up required, v erbal cues required(Min overall due to BK singh assist, otherwise SBA/CGA) Assistive Device: sock-aid LB Dressing Assess/Train, Position: sitting, standing, supported standing LB Dressing Impairments: impaired vision, decreased flexibility, coordination impaired, mot or control impaired, sensation decreased, impaired balance SBA for standing void at toilet Toileting, Level of [place]: stand by assist Assistive Device: grab bar Toileting Assess/Train, Position: supported standing Toileting Impairments: impaired vision, coordination impaired, impaired functional enduranc e/activity tolerance, sensation decreased Functional Endurance Pt with good activity tolerance overall. Cognitive Pt pleasantly participatory and cooperative throughout Mood/Behavior: calm, cooperative Orientation: (confirmed name and ) Arousal Level: opens eyes spontaneously Speech: clear, spontaneous, logical Bed Mobility No bed mob this session, pt up in chair beginning/ending of session. Transfers SBA for sit<>stand tfs this session including standing void at toilet with grab bars Sit-Stand, Level of [place]: stand by assist Stand-Sit, Level of [place]: stand by assist Yqp-[id number]-Yvc, Assistive Device: none Toilet, Level of [place]: stand by assist Toilet, Assistive Device: grab bars Safety Issues: step length decreased, weight-shifting ability decreased, sequencing abilit y decreased, balance decreased during turns Impairments: impaired balance, impaired vision, sensation decreased, motor control impaired Strength Dynamometer strength test: R hand: 42 kg, 51 kg, 44 kg (Avg 45.67 kg) and L hand 27 kg, 38 kg, 37 kg (Avg 34 kg) 9 Hole Peg Test: Efren scored 168 seconds for L hand and 27 seconds for R hand on 9 Hole Peg Test indicating manual dexterity deficit is likely for both hands, especially for L hand. L hand performance comments: -OT provided picking up of pegs from floor and pt did perform some picking up of pegs with L hand from table. -OT did not provide cues for "Faster" and "Out again...faster" -During pt L hand performance of 9 hole peg test, pt reported experiencing "fuzzy" vision. Pt explained that when squinting eyes to focus during L hand performance of 9 hole peg test, pt felt that his vision got fuzzy and he couldn't see his hand. Following rest break after L hand performance of 9 hole peg test, pt report of "fuzzy" vision resolved. R hand performance comments: -OT provided no cue for "Faster" and only provided cue for taking pegs "back out again" -Pt denied fuzzy vision during R hand performance Interpretation: - Average and Standard Deviation of MALE Participants Scores AGE Right (SD) in sec Left (SD) in sec 21-25 16.41 (1.65) 17.53 (1.73) 26-30 16.88 (1.89) 17.84 (2.22) 31-35 17.54 (2.70) 18.47 (2.94) 36-40 17.71 (2.12) 18.62 (2.30) 41-45 18.54 (2.88) 18.49 (2.42) 46-50 18.35 (2.47) 19.57 (2.69) 51-55 18.93 (2.37) 19.84 (3.10) 56-60 20.90 (4.55) 21.64 (3.39) 61-65 20.87 (3.50) 21.60 (2.98) 66-70 21.23 (3.29) 22.29 (3.71) 71+ 25.79 (5.60) 25.95 (4.54) All Male Subjects 18.99 (3.91) 19.79 (3.66) Normative Data s/p Stroke 1 month 3 month 6 month 88.8 (40.2) 67.8 (41.7) 60.8 (39.7) Alternative scoring: the number of pegs placed in 50 or 100 seconds can be recorded. In this case, results are expressed as number of pegs placed per second. For more information, please visit: [email or web address]://[email or web address].org/[email or web address]-measures/ligb-oyrn-lcr-test Vision: Vision Comments: During pt L hand performance of 9 hole peg test, pt reported experiencing "fuzzy" vision. Pt explained that when squinting eyes to focus during L hand performance of 9 hole peg test, pt felt that his vision got fuzzy and he couldn't see his hand. Following r est break after L hand performance of 9 hole peg test, pt report of "fuzzy" vision resolved. Sensation: At end of session, pt continues to report that L hand feels tingling, swollen, "asleep." OT Goal Review Date Most Recent Value STG Review Date 04/18/20 at 04/11/2020 0922 LTG Review Date 04/25/20 at 04/11/2020 0922 Grooming Goal Most Recent Value STG Status new, progressing at 04/11/2020 0922 STG [place] Level supervised at 04/11/2020 0922 STG Position standing at 04/11/2020 0922 STG Adaptive Equipment none at 04/11/2020 0922 LTG Status new at 04/11/2020 0922 LTG [place] Level modified independent at 04/11/2020 0922 LTG Position standing at 04/11/2020 0922 LTG Adaptive Equipment none at 04/11/2020 0922 Bathing Goal Most Recent Value STG Status progressing [Supervised today though for sponge bathing] at 04/12/2020 1158 STG [place] Level supervised, set up required, verbal cues required at 04/11/2020 092 2 STG Adaptive Equpiment grab bars, shower head, detachable, sponge, long handled, shower ch air, shower chair with back at 04/11/2020 0922 STG Position sitting, standing at 04/11/2020 0922 LTG Status new at 04/11/2020 0922 LTG [place] Level modified independent at 04/11/2020 0922 LTG Adaptive Equpiment grab bars, shower head, detachable, sponge, long handled, shower ch air, shower chair with back at 04/11/2020 0922 LTG Position sitting, standing at 04/11/2020 0922 UB Dressing Goal Most Recent Value STG Status met at 04/12/2020 1158 STG [place] Level supervised, set up required, verbal cues required at 04/11/2020 092 2 STG Adaptive Equipment none at 04/11/2020 0922 LTG Status revised at 04/12/2020 1158 LTG [place] Level modified independent at 04/11/2020 0922 LTG Adaptive Equipment none at 04/11/2020 0922 LTG Comments including clothing retrieval at 04/12/2020 1158 LB Dressing Goal Most Recent Value STG Status revised at 04/12/2020 1158 STG [place] Level supervised, set up required, verbal cues required at 04/11/2020 092 2 STG Adaptive Equipment sock-aid, shoe horn, long handled, sisal operator at 04/11/2020 0922 LTG Status new at 04/11/2020 0922 LTG [place] Level modified independent at 04/11/2020 0922 LTG Adaptive Equipment shoe horn, long handled, sock-aid, sisal operator at 04/11/2020 0922 LTG Comments including clothing retrieval at 04/12/2020 1158 Toileting Goal Most Recent Value STG Status progressing at 04/12/2020 1158 STG [place] Level supervised, set up required, verbal cues required at 04/11/2020 092 2 STG Assistive Device grab bar at 04/11/2020 0922 LTG Status new at 04/11/2020 0922 LTG [place] Level modified independent at 04/11/2020 0922 LTG Assistive Device grab bar at 04/11/2020 0922 Toilet Transfer Goal Most Recent Value STG Status progressing at 04/12/2020 1158 STG [place] Level supervised, set up required, verbal cues required at 04/11/2020 092 2 STG Assistive Device grab bars at 04/11/2020 0922 LTG Status new at 04/11/2020 0922 LTG [place] Level modified independent at 04/11/2020 0922 LTG Assistive Device grab bars at 04/11/2020921 Tub/Shower Transfer Goal Most Recent Value Tub/Shower Type tub/shower combo at 04/11/2020921 STG Status progressing at 04/11/2020 1712 STG [place] Level supervised, set up required, verbal cues required at 04/11/2020 092 2 STG Assistive Device grab bars, shower chair at 04/11/2020921 LTG Status new at 04/11/2020921 LTG [place] Level modified independent at 04/11/2020921 LTG Assistive Device grab bars, shower chair at 04/11/2020 09 IADL Goal Most Recent Value STG Status new at 04/11/2020921 STG Pt will be supervision vcs setup prn for meal preparation task at 04/11/2020921 LTG Status new at 04/11/2020921 LTG Pt will be Mod I for meal preparation task at 04/11/2020921 Vision Goal Most Recent Value STG Status new at 04/11/2020 09 STG Pt will participate in eye exercises to increase ocular alignment, initiate saccadic e ye motion, increase VOR with eye focusing, and decrease diplopia as well as increase depth p erception and spatial relations to improve visual functions for ADLs, functional mobility/tf s. at 04/11/2020921 LTG Status new at 04/11/2020921 LTG Pt will report improvements to visual deficits impact on ADLs and utilize visual compe nsatory strategies indep at 04/11/2020921 Additional Goals #1 OT Most Recent Value STG Status new at 04/11/2020921 STG Pt will participate in tasks to increase/improve LUE sensation and coordination. at 0 04/11/2020 09 LTG Status revised, new at 04/12/2020 1158 LTG Pt L hand fine motor coordination will be improved as evidenced by L hand performance on the 9 hole peg test in 90 seconds or less. at 04/12/2020 1158 Electronically signed by: Irma Muse OT, 04/12/2020 12:53 PM lan of Care - Jenna Mcmillan, Speech Pathologist - 04/12/2020 11:05 AM PDTFormatting of this note might be diffe rent from the original. 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 Emphasis of session included introducing a memory book and discussing the benefi ts of using it. His primary methods of learning (watching and doing) were discussed. Using the memory technique of story making was practice with good immediate recall. Pt stated th at he is getting a new smart phone, so using a sticky note keyla was discussed and demonstrate d. Patient demonstrates progress towards functional goals as evidenced by good immediate re call of items using story making. Remaining barriers to Cognition include memory deficits. Efren will benefit from continued therapeutic intervention to address ongoing impairments an d increase safety and independence. Refer below for specific details regarding specifics of session and impairments. Speech Language Pathology Discharge Recommendations are: Recommended discharge disposition: home with family/caregiver Post discharge speech language pathology recommendation: continue SAND WORKER tx for cognitive-dillon guistic, outpatient therapy Planned Interventions: compensatory strategies, memory, executive function skills, reading , cognitive stimulation, writing Recommended Frequency: 5 times/wk Patient Status/Goals: Reflects last filed data and may be from multiple contributors. Cognitive Pt was alert and participated throughout the session. Mood/Behavior: calm, cooperative Orientation: (confirmed name and ) Arousal Level: opens eyes spontaneously Speech: clear, spontaneous, logical Cognition Goal Most Recent Value STG Status continued at 04/12/2020 1224 STG Pt will recall to use memory book to compensate for episodic memory impairment with m in cues from SAND WORKER in 3 consecutive sessions. at 04/12/2020 1224 Additional Goals #1 SAND WORKER Most Recent Value STG Status continued at 04/12/2020 1224 STG Pt will verbally name 10 items in room from left space to target left visual neglect i ndep. at 04/12/2020 1224 Additional Goals #2 SAND WORKER Most Recent Value STG Status continued at 04/12/2020 1224 STG Patient will use self selected compensatory strategy during structured immediate memor y tasks in 4/5 opportunities with mod cues from SAND WORKER. at 04/12/2020 1224 Additional Goals #3 SAND WORKER Most Recent Value STG Status continued at 04/12/2020 1224 STG Patient will participate in education of compensatory strategies for improved STM at 0 04/12/2020 1224 LTG Status continued at 04/12/2020 1224 LTG Patient will utilize compensatory strategies for improved recall 4/5 opportunities ove r 3 consecutive sessions and min cues at 04/12/2020 1224 Electronically signed by: Fallon Mcmillan Speech Pathologist, 04/12/2020 12:29 PMElectronic ally signed by Fallon Mcmillan Speech Pathologist at 04/12/2020 12:33 PM PDTPlan of Care - Alexander Acharya, [employer]OR [employer]ER - 04/12/2020 9:15 AM PDT IRF Physical Therapy Plan of Care Treatment Note Summary: Efren has been participating in physical therapy for treatment of Impaired balanc e, gait instability, impaired vision, coordination and sensation on (L) side following CVA . 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 Emphasis of session included transfer training, gt training, there ex for LE strengthening, reciprocal patterning and LUE arm swing. Patient demonstrates progress towards functional goals as evidenced by min increased tolerance with functional mobility overall, slight impro ving arm swing with ambulation training with ~40% return demo with mod cueing this session. Pt cont to present with L visual field cut vs L inattention with mod/max cueing throughout to scanning to the L for obstacle avoidance and to reduced L sided drifting with ambulation, cueing throughout session for safety, sequencing, upright posture and pacing this session. RN cleared patient for participation in therapy. Patient was agreeable to therapy. Patient participated without adverse reaction. Patient is encouraged to ambulate into hallway with n ursing staff. It is encouraged that the patient be up in chair for all meals. Recommended mobility with nursing: Day Night into the bathroom and into the hallway into the bathroom No Assistive Device No Assistive Device contact guard assistance contact guard assistance Remaining barriers to discharge and functional limitations include decreased functional act ivity tolerance, decreased bed mobility, decreased functional transfers, decreased functiona l gait distance, decreased gait velocity, stairs at home, demonstrating need for 24/7 superv ision, not yet able to mobilize at level safe for home discharge, [facility] indicating significa nt impairment with basic functional mobility, and medical status. Efren will benefit from continued therapeutic intervention to address ongoing impairments an d increase safety and independence with activities necessary for safe discharge. Refer jean-pierre valle for specific details regarding functional levels. Physical Therapy Discharge Recommendations are: Recommended discharge disposition: home with assist Post discharge physical therapy recommendation: outpatient therapy Equipment Recommendations: none Planned Interventions: balance training, bed mobility training, gait training, home exerci se program, patient/family education, strengthening, transfer training, stair training, chay r coordination training, neuromuscular re-education Frequency: daily(1-2x/day, IRF) Patient Status/Goals: Reflects last filed data and may be from multiple contributors. Bed Mobility NT d/t pt upright in chair requesting to return back to chair Transfers SBA throughout session for safety, sequencing, upright posture with sit<>stand activities Bed-Chair, Level of [place]: not tested Chair-Bed, Level of [place]: not tested Nra-Noiba-Mny, Assistive Device: none Sit-Stand, Level of [place]: stand by assist, verbal cues required, set up required Stand-Sit, Level of [place]: stand by assist, verbal cues required, set up required [id number], Assistive Device: gait belt Safety Issues: step length decreased, weight-shifting ability decreased, sequencing ability decreased, balance decreased during turns Impairments: impaired balance, impaired vision, sensory feedback impaired, postural control impaired, coordination impaired, sensation decreased Gait SBA for safety, sequencing, hand placement, vc for L arm swing, upright posture, distant ho rizon targeting, trial trekking pole for reciprocal arm swing, pt states he feel less succes sful with pole this session Level of [place]: contact guard assist, stand by assist, verbal cues required, set up required, tactile cues required Assistive Device: gait belt Distance (feet): trekking poles to assist arm swing, increased cueing for L arm swing Gait Deviations: stride width increased, jwi-ks-inwad clearance decreased, limb motion [place] decreased Safety Issues: balance decreased during turns, step length decreased(L visual feild cut vs L inattention) Impairments: impaired balance, coordination impaired, motor control impaired, sensory feedb ack impaired, impaired vision, postural control impaired Balance slight L sided drift, L visual field cut vs L inattention Sitting Balance: Static: normal balance Sitting Balance: Dynamic: normal balance Standing Balance: Static: good balance Standing Balance: Dynamic: fair balance Therapeutic Exercise recummbent bike, lv 1.0, quick start, x4mins, x6mins, to promote reciprocal patterning and UE swing, trialing increased LUE swinging ~20mins Functional Endurance good/good- throughout session with moderate functional activities PT Goal Review Date Most Recent Value STG Review Date 04/18/20 at 04/11/2020 1108 LTG Review Date 04/25/20 at 04/11/2020 1108 [id number]-Zuf-[id number] Goal Most Recent Value STG Status progressing at 04/11/2020 1422 STG [place] Level supervised at 04/11/2020 1108 STG Assistive Device none at 04/11/2020 1108 LTG Status new at 04/11/2020 1108 LTG [place] Level modified independent at 04/11/2020 1108 LTG Assistive Device none at 04/11/2020 1108 Mya-Tkfau-Xtf Goal Most Recent Value STG Status progressing at 04/12/2020 0915 STG [place] Level supervised at 04/11/2020 1108 STG Assistive Device none at 04/11/2020 1108 LTG Status new at 04/11/2020 1108 LTG [place] Level modified independent at 04/11/2020 1108 LTG Assistive Device none at 04/11/2020 1108 Gait Goal Most Recent Value STG Status progressing at 04/12/2020 0915 STG [place] Level stand by assist at 04/11/2020 1108 STG Assistive Device none at 04/11/2020 1108 STG Distance (feet) 300' at 04/11/2020 1108 LTG Status new at 04/11/2020 1108 LTG [place] Level supervised at 04/11/2020 1108 Stair Goal Most Recent Value STG Status new at 04/11/2020 1108 STG [place] Level supervised at 04/11/2020 1108 STG Assistive Device 2 rails at 04/11/2020 1108 STG Number of Stairs 12 at 04/11/2020 1108 LTG Status new at 04/11/2020 1108 LTG [place] Level modified independent at 04/11/2020 1108 LTG Assistive Device 2 rails at 04/11/2020 1108 LTG Number of Stairs 12 at 04/11/2020 1108 Additional Goal #1 PT Most Recent Value STG Status progressing at 04/11/2020 1422 STG Pt will demonstrate improve DGI score to 15/24 to reduce fall risk. at 04/11/2020 1108 LTG Status new at 04/11/2020 1108 LTG Improve DGI score to >19/24 to reduce fall rsik. at 04/11/2020 1108 Electronically signed by: Alexander Acharya PTA, 04/12/2020 5:01 PM lan of [facility] - Daisy Morrow RN - 04/12/2020 3: 51 AM PDTPt aaox4 vss on ra. Pt continues to reports decreased dexterity with L arm hand gri p slightly weaker. L sided visual peripheral loss. Pt reports headache tylenol given with re lief, klonopin given per pt request for anxiety. Pt sba voiding. Slept well t/o night no fal ls this shift, frequent rounding maintained.Electronically signed by Daisy Morrow RN at 3:54 AM PDTPlan of [place] - Irma Muse OT - 04/11/2020 5:12 PM PDT IRF Occupational Therapy Plan of Care Treatment Note Summary: Efren has been participating in occupational therapy for treatment of decreased s afety/capacity for indep with ADLs, IADLs, functional mobility/tfs following admission after Ischemic cerebrovascular accident (CVA) . Emphasis of session included total body dressing surrounding shower in tub shower with BK teds for BP safety. Patient demonstrates progress towards functional goals as evidenced by limited physical assist necessary overall. RICHIE cisse BPs Vitals with Orthostatic BP with comments 04/11/2020 04/11/2020 BP sitting 126/71 - HR sitting 51 - BP standing 122/74 After approx 1 min stand 109/74 After approx 3 min stand HR standing 57 58 *After Bps taken above, OT showered pt with BK teds donned during shower for BP safety due to second standing BP at 109/74* RN cleared patient for participation in therapy. [...] functional transfers, decreased ability to perform ADLs, decreased ability to perform IAD Ls, decreased ability to perform medication management, not yet able to mobilize at level sa fe for home discharge, and medical status. Efren will benefit from continued therapeutic intervention to address ongoing impairments an d increase safety and independence with activities necessary for safe discharge. Refer jean-pierre valle for specific details regarding functional levels. Occupational Therapy Discharge Recommendations are: Recommended discharge disposition: home with assist Post discharge occupational therapy recommendation: home health, other (see comment), outp atient therapy(Will continue to determine pt benefit from post d/c therapy HHOT vs outpatien t, TBD) Equipment Recommendations: sisal operator(Additional equipment TBD) Planned Interventions:ADL retraining, balance training, fine motor coordination training, f unctional endurance training, motor coordination training, neuromuscular re-education, patie nt/family education, transfer training, visual/perceptual retraining, IADL retraining, bed m obility training, ROM (Range of Motion), strengthening, other (see comments)(sensory) Recommended Frequency: (rehab schedule) Patient Status/Goals: Reflects last filed data and may be from multiple contributors. ADLs total body dressing surrounding shower in tub shower SBA with incidental CGA for showering primarily standing in tub shower with grab bar, showe r chair, and HHSH use. Assist provided for drying back though no physical assist otherwise Bathing, Level of [place]: set up required, verbal cues required, contact guard assist , stand by assist Assistive Device: grab bars, hand-held shower head, shower chair without back Bathing Assess/Train, Position: sitting, standing, supported standing Bathing Impairments: decreased flexibility, sensation decreased, strength decreased, impair ed balance, motor control impaired, impaired vision SBA for shirt doff/don surrounding shower UB Dressing, Level of [place]: stand by assist, set up required, verbal cues required Assistive Device: none UB Dressing Assess/Train, Position: sitting, standing UB Dressing Impairments: sensation decreased, impaired balance, impaired vision SBA with incidental CGA surrounding brief doffing/donning and pant doffing/donning. Pt was showered in BK teds for BP safety, pt able to bring wet BK teds down to ankle after shower, then doffed rest of way by OT and donned by OT after shower. Pt able to perform mgmt of sock s off/on without physical assist, required sock aide for L sock donning. LB Dressing, Level of [place]: minimal assist (75% patient effort), set up required, v erbal cues required(Min overall due to BK isngh assist, otherwise SBA/CGA) Assistive Device: sock-aid LB Dressing Assess/Train, Position: sitting, standing, supported standing LB Dressing Impairments: impaired vision, decreased flexibility, coordination impaired, mot or control impaired, sensation decreased, impaired balance Functional Endurance Fair activity tolerance overall. Pt required limited physical assist for shower and associa singh BADLs this session. Cognitive Pt pleasantly participatory and cooperative throughout Mood/Behavior: calm, cooperative Orientation: (confirmed name and ) Arousal Level: opens eyes spontaneously Speech: clear, spontaneous, logical Bed Mobility No bed mob this session, pt up in chair beginning/ending of session. Transfers SBA for sit<>stands this session, though CGA for steping in/out of tub shower with grab bar use. Sit-Stand, Level of [place]: stand by assist Stand-Sit, Level of [place]: stand by assist [id number], Assistive Device: none Tub, Level of [place]: contact guard assist, set up required, verbal cues required Tub, Assistive Device: grab bars, shower chair Safety Issues: step length decreased, weight-shifting ability decreased, sequencing ability decreased, balance decreased during turns Impairments: impaired balance, impaired vision, sensation decreased, motor control impaired OT Goal Review Date Most Recent Value STG Review Date 04/18/20 at 04/11/2020 0922 LTG Review Date 04/25/20 at 04/11/2020 0922 Grooming Goal Most Recent Value STG Status new, progressing at 04/11/2020 0922 STG [place] Level supervised at 04/11/2020 0922 STG Position standing at 04/11/2020 0922 STG Adaptive Equipment none at 04/11/2020 0922 LTG Status new at 04/11/2020 0922 LTG [place] Level modified independent at 04/11/2020 0922 LTG Position standing at 04/11/2020 0922 LTG Adaptive Equipment none at 04/11/2020 0922 Bathing Goal Most Recent Value STG Status progressing at 04/11/2020 1712 STG [place] Level supervised, set up required, verbal cues required at 04/11/2020 092 2 STG Adaptive Equpiment grab bars, shower head, detachable, tub bench with back, sponge, lo ng handled at 04/11/2020921 STG Position sitting, standing at 04/11/202022 LTG Status new at 04/11/2020921 LTG [place] Level modified independent at 04/11/2020921 LTG Adaptive Equpiment grab bars, shower head, detachable, sponge, long handled, tub bench with back at 04/11/2020 0922 LTG Position sitting, standing at 04/11/2020 0922 UB Dressing Goal Most Recent Value STG Status progressing at 04/11/2020 1712 STG [place] Level supervised, set up required, verbal cues required at 04/11/2020 092 2 STG Adaptive Equipment none at 04/11/202022 LTG Status new at 04/11/2020921 LTG [place] Level modified independent at 04/11/2020921 LTG Adaptive Equipment none at 04/11/2020 0922 LB Dressing Goal Most Recent Value STG Status progressing at 04/11/2020 1712 STG [place] Level supervised, set up required, verbal cues required at 04/11/2020 092 2 STG Adaptive Equipment sock-aid, shoe horn, long handled, sisal operator at 04/11/2020921 LTG Status new at 04/11/2020921 LTG [place] Level modified independent at 04/11/2020921 LTG Adaptive Equipment shoe horn, long handled, sock-aid, sisal operator at 04/11/2020 09 Toileting Goal Most Recent Value STG Status new, progressing at 04/11/202022 STG [place] Level supervised, set up required, verbal cues required at 04/11/2020 092 2 STG Assistive Device grab bar at 04/11/2020 0922 LTG Status new at 04/11/202022 LTG [place] Level modified independent at 04/11/202022 LTG Assistive Device grab bar at 04/11/2020 09 Toilet Transfer Goal Most Recent Value STG Status new, progressing at 04/11/2020921 STG [place] Level supervised, set up required, verbal cues required at 04/11/2020 092 2 STG Assistive Device grab bars at 04/11/2020 0922 LTG Status new at 04/11/2020 0922 LTG [place] Level modified independent at 04/11/2020 0922 LTG Assistive Device grab bars at 04/11/2020 0922 Tub/Shower Transfer Goal Most Recent Value Tub/Shower Type tub/shower combo at 04/11/2020921 STG Status progressing at 04/11/2020 1712 STG [place] Level supervised, set up required, verbal cues required at 04/11/2020 092 2 STG Assistive Device grab bars at 04/11/2020921 LTG Status new at 04/11/2020921 LTG [place] Level modified independent at 04/11/2020921 LTG Assistive Device grab bars at 04/11/2020921 IADL Goal Most Recent Value STG Status new at 04/11/2020921 STG Pt will be supervision vcs setup prn for meal preparation task at 04/11/2020921 LTG Status new at 04/11/2020921 LTG Pt will be Mod I for meal preparation task at 04/11/2020921 Vision Goal Most Recent Value STG Status new at 04/11/2020921 STG Pt will participate in eye exercises to increase ocular alignment, initiate saccadic e ye motion, increase VOR with eye focusing and decrease diplopia as well as increase depth pe rception and spatial relations to improve visual functions for ADLs, functional mobility/tfs . at 04/11/2020921 LTG Status new at 04/11/2020921 LTG Pt will report improvements to visual deficits impact on ADLs and utilize visual compe nsatory strategies indep at 04/11/2020921 Additional Goals #1 OT Most Recent Value STG Status new at 04/11/2020921 STG Pt will participate in tasks to increase/improve LUE sensation and coordination at 921 LTG Status new at 04/11/2020921 LTG Pt will be Mod I for performance of theraputty exercises to increase L hand FMC. at 0 04/11/2020921 Electronically signed by: Irma Muse OT, 04/11/2020 5:50 PM lan of Care - Asim Rivas RN - 04/11/2020 3:19 PM PDTPt c/o headache x1 today, resolved with prn tylenol. Ambulating SBA. C/o numbness to L UE. Continues with decreased dexterity to LUE. Pt continues with decreased left side periphe ral vision. Pt is voiding without difficulty. BM 04/10. Tolerating diet. Drinking fluids. Pt remains free from falls at this time. Problem: Adult Inpatient Plan of Care Goal: [...] Fall and Fall-Related Injury Outcome: Ongoing, progressing Problem: Adjustment to Illness (Stroke, Ischemic/Transient Ischemic Attack) Goal: Optimal Coping Outcome: Ongoing, progressing Problem: Bowel Elimination Impaired (Stroke, Ischemic/Transient Ischemic Attack) Goal: Effective Bowel Elimination Outcome: Ongoing, progressing Problem: Cerebral Tissue Perfusion Risk (Stroke, Ischemic/Transient Ischemic Attack) Goal: Optimal Cerebral Tissue Perfusion Outcome: Ongoing, progressing lan of Care - Tabatha Duque PT - 04/11/2020 2:22 PM PDTFormatting of this note might be different from the o riginal. IRF Physical Therapy Plan of Care Treatment Note Summary: Efren has been participating in physical therapy for treatment of Impaired balanc e, gait instability, impaired vision, coordination and sensation on (L) side following CVA . 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 Emphasis of session included gait, bed mobility, transfers training, DGI test and neuro re-education. Pt continue to require cues to scan to (L) to avoid obstacles. DGI score in dicated that pt is a high fall risk. RN cleared patient for participation in therapy. Patient was agreeable to therapy. Patient participated without adverse reaction. [facility] It is encouraged that the patient be up in chair for all meals. Recommended mobility with nursing: Day Night into the bathroom and into the hallway into the bathroom No Assistive Device No Assistive Device contact guard assistance contact guard assistance Remaining barriers to discharge and functional limitations include decreased functional act ivity tolerance, decreased bed mobility, decreased functional transfers, decreased functiona l gait distance, decreased gait velocity, stairs at home, demonstrating need for 24/7 superv ision, not yet able to mobilize at level safe for home discharge, [facility] indicating significa nt impairment with basic functional mobility, and medical status. Efren will benefit from continued therapeutic intervention to address ongoing impairments an d increase safety and independence with activities necessary for safe discharge. Refer jean-pierre valle for specific details regarding functional levels. Physical Therapy Discharge Recommendations are: Recommended discharge disposition: home with assist Post discharge physical therapy recommendation: outpatient therapy Equipment Recommendations: none Planned Interventions: balance training, bed mobility training, gait training, home exerci se program, patient/family education, strengthening, transfer training, stair training, chay r coordination training, neuromuscular re-education Frequency: daily(1-2x/day, IRF) Patient Status/Goals: Reflects last filed data and may be from multiple contributors. Bed Mobility SBA for safety Assistive Device: none Roll Left, Level of [place]: stand by assist, verbal cues required Roll Right, Level of [place]: stand by assist, verbal cues required Scoot/Bridge, Level of [place]: stand by assist Supine to Sit, Level of [place]: stand by assist, verbal cues required Sit to Supine, Level of [place]: stand by assist, verbal cues required Impairments: coordination impaired, sensation decreased, sensory feedback impaired, impaire d vision Transfers verbal cues to scan to (L) side and which direction to turn. Pt tends to do a 360 deg.turn to find his target d/t impaired vision on (L) Bed-Chair, Level of [place]: contact guard assist, verbal cues required Chair-Bed, Level of [place]: contact guard assist, verbal cues required Baw-Bzugf-Noy, Assistive Device: none Sit-Stand, Level of [place]: contact guard assist, verbal cues required Stand-Sit, Level of [place]: contact guard assist, verbal cues required [id number], Assistive Device: none Safety Issues: step length decreased, weight-shifting ability decreased, sequencing ability decreased, balance decreased during turns Impairments: impaired balance, impaired vision, sensory feedback impaired, postural control impaired, coordination impaired, sensation decreased Gait incorporated DGI on gt.training, significant drifting to (L) side with head turns and looki ng up. wide base gait and dec. arm swing. Level of [place]: stand by assist Assistive Device: none Distance (feet): did not focused on distance Gait Deviations: stride width increased Impairments: impaired balance, coordination impaired, motor control impaired, sensory feedb ack impaired, impaired vision Stairs hand over hand for placement of (L) hand on the rail. Curb training Min A Number of Stairs: 8 Handrail Location: both sides Level of [place]: contact guard assist, verbal cues required Assistive Device: 2 rails Technique Used: step to step (ascending), step to step (descending) Safety Issues: balance decreased during turns, weight-shifting ability decreased Impairments: impaired balance, coordination impaired, motor control impaired, impaired visi on, sensory feedback impaired Balance Dynamic Gait Index: Efren scored 12/24 on the Dynamic Gait Index (with no assistive device), indicating he is a high fall risk. Gait Level Surface: 2 - Mild impairment, walks 20', uses assistive device, slower speed, mi ld gait deviation Change in Gait Speed: 2 - Mild impairment: is able to change speeds but demonstrates mild g ait deviation or not gait deviation but unable to achieve a significant change in velocity o r uses assistive device. Horizontal Head Turns: 1 - Moderate impairment: performs head turns with moderate change in gait velocity, slows down, staggers but recovers, can continue to walk Vertical Head Turns: 1 - Moderate impairment: performs head turns with moderate change in g ait velocity, slows down, staggers but recovers, can continue to walk Gait Pivot Turn: 1 - Moderate impairment: turns slowly, requires verbal cueing, requires se veral small steps to catch balance following turn and stop Step over Obstacle: 2 - Mild impairment: is able to step over box but must slow down and ad just steps to clear cones Step around Obstacle: 1 - Moderate impairment: is able to clear cones but must significantl y decrease speed to accomplish task, or requires verbal cueing Steps: 2 - Mild impairment: alternating feet, must use rail Total score: 12 Note: w/o AD Interpretation: - Predicts fall risk <19 = [...] of falling For more information, please visit: [email or web address] Therapeutic Exercise verbal cues on correct sequence with AD., dec. coordination Neuromuscular Reeducation: coordination ex using trekking pole to facilitate reciprocal arm swing . PT Goal Review Date Most Recent Value STG Review Date 04/18/20 at 04/11/2020 1108 LTG Review Date 04/25/20 at 04/11/2020 1108 Vykzup-Zpt-Lwstit Goal Most Recent Value STG Status progressing at 04/11/2020 1422 STG [place] Level supervised at 04/11/2020 1108 STG Assistive Device none at 04/11/2020 1108 LTG Status new at 04/11/2020 1108 LTG [place] Level modified independent at 04/11/2020 1108 LTG Assistive Device none at 04/11/2020 1108 Nme-Qhvhq-Asr Goal Most Recent Value STG Status progressing at 04/11/2020 1422 STG [place] Level supervised at 04/11/2020 1108 STG Assistive Device none at 04/11/2020 1108 LTG Status new at 04/11/2020 1108 LTG [place] Level modified independent at 04/11/2020 1108 LTG Assistive Device none at 04/11/2020 1108 Gait Goal Most Recent Value STG Status progressing at 04/11/2020 1422 STG [place] Level stand by assist at 04/11/2020 1108 STG Assistive Device none at 04/11/2020 1108 STG Distance (feet) 300' at 04/11/2020 1108 LTG Status new at 04/11/2020 1108 LTG [place] Level supervised at 04/11/2020 1108 Stair Goal Most Recent Value STG Status new at 04/11/2020 1108 STG [place] Level supervised at 04/11/2020 1108 STG Assistive Device 2 rails at 04/11/2020 1108 STG Number of Stairs 12 at 04/11/2020 1108 LTG Status new at 04/11/2020 1108 LTG [place] Level modified independent at 04/11/2020 1108 LTG Assistive Device 2 rails at 04/11/2020 1108 LTG Number of Stairs 12 at 04/11/2020 1108 Additional Goal #1 PT Most Recent Value STG Status progressing at 04/11/2020 1422 STG Pt will demonstrate improve DGI score to 15/24 to reduce fall risk. at 04/11/2020 1108 LTG Status new at 04/11/2020 1108 LTG Improve DGI score to >19/24 to reduce fall rsik. at 04/11/2020 1108 Electronically signed by: TABATHA DUQUE, PT, 04/11/2020 6:09 PM lan of Care - Tia Guillen, Speech Patholo gist - 04/11/2020 1:54 PM PDT IRF Speech Therapy Plan of Care Initial Evaluation Note Summary: Efren presents to speech therapy with acute on chronic moderate cognitive communi cation impairment specific to right brain injury, severe memory impairment. Objective exam reveals impairments with visual spatial processing, and short term memory. Barriers to Cogn ition include chronic cognitive impairment. Pt admitted to IRF following right occipital lobe, posterior medial right temporal lobe, po sterior right corpus callosum, and posterior right thalamus. MRI shows chronic lacunar infar cts. Pt presents with left visual neglect, but he is stimulable to look left. Pt evaluated o n acute with RBANS with a score of 65 indicating over all severe cognitive impairment. Zafar ross interview, Pt states that he had a TBI 8 years prior and has since had a poor memory. He s tates he uses electronic calendar and reminders to compensate for memory impairment and his manages his iADLS. Today Pt completed Mini Inventory of Right Brain Injury with overall score indicating a mild moderate level of cognitive impairment likely related specifically to right hemisphere injury. He has tactile anosognosia of LUE and left visual neglect to ex tra personal space. Pt is agreeable to SAND WORKER services to train on compensatory strategies whil e in IRF, train on compensatory strategy use during structured activities, and use of memory book to assist with episodic recall of daily events. SAND WORKER to call to gather baseline an d update functional goals. Efren will benefit from therapeutic intervention to address impairments and increase safety and independence. Refer below for specific details regarding specifics of session and impai rments. Precautions/Limitations: falls, vision impairment Previous Level of Function: Transferring: independent Ambulation: independent Toileting: independent Bathing: independent Dressing: independent(Recently since stroke pt reports need for assist with pants, belt, so cks and shoes, however indep prior) Eating: independent Communication: understands/communicates without difficulty Swallowin-->swallows foods/liquids without difficulty Equipment Currently Used at Home: none Prior Functional Level Comment: Pt was independent with IADL's and ambulates w/o AD. Pt wa s still driving. Hx of TBI approx.8 yrs ago and affected STM Potential available assistance at discharge: Significant Relationships: spouse Provides Primary Care For: pet(s) Role Relationships Comment: Supportive spouse Patient/Family s Goals: Did not state Rehabilitation potential: good Speech Language Pathology Discharge Recommendations are: Recommended discharge disposition: home with family/caregiver Post discharge speech language pathology recommendation: continue SAND WORKER tx for cognitive-dillon guistic, outpatient therapy Planned Interventions: compensatory strategies, memory, executive function skills, reading , cognitive stimulation, writing Recommended Frequency: 5 times/wk Cognitive Mini Inventory of Right Brain Injury: Efren scored 29/43 on the MIRBI, indicating a mild moderate severity of cognitive deficit. Section I: Record of Scores Process Sub-Score Score Possible points Visual Processing 11 21 Language Processing 15 18 Emotion and Affect Processing 1 1 General Behavior and Psychic Integrity 2 3 Total 29 43 Section II: Right-Left Differentiation Subscale Score Items 1,2,5,6,14,15,22,24,25,27 7/11 *9 points or below = strong probability of right brain injury Interpretation: Section III: MIRBI Severity Profile 0-7 Profound 8-15 Severe 16-20 Moderate-Severe 21-26 Moderate 27-31 Mild-Moderate 32-37 Mild 38-43 Normal Cognition Goal Most Recent Value STG Status new at 04/11/2020 1313 STG Pt will recall to use memory book to compensate for episodic memory impairment with m in cues from SAND WORKER in 3 consecutive sessions. at 04/11/2020 1313 Additional Goals #1 SAND WORKER Most Recent Value STG Status new at 04/11/2020 1313 STG Pt will verbally name 10 items in room from left space to target left visual neglect i ndep. at 04/11/2020 1313 Additional Goals #2 SAND WORKER Most Recent Value STG Status new at 04/11/2020 1313 STG Patient will use self selected compensatory strategy during structured immediate memor y tasks in 4/5 opportunities with mod cues from SAND WORKER. at 04/11/2020 1313 Additional Goals #3 SAND WORKER Most Recent Value STG Status new at 04/11/2020 1313 STG Patient will participate in education of compensatory strategies for improved STM at 0 04/11/2020 1313 Electronically signed by: Tia Guillen, Speech Pathologist, 04/11/2020 1:54 PMElect ronically signed by Tia Guillen Speech Pathologist at 04/11/2020 2:06 PM PDTPlan of Care - Tabatha Duque, PT - 04/11/2020 11:08 AM PDTFormatting of this note might be diffe rent from the original. IRF Physical Therapy Plan of Care Initial Evaluation, Treatment Note Summary: Efren presents to physical therapy with Impaired balance, gait instability, impai red vision, coordination and sensation on (L) side following CVA 03/19. MRI findings Right p osterior cerebral artery distribution infarction involving the right. Objective exam reveal s impairments with aerobic capacity/endurance, arousal, attention, and cognition, cognitive, functional endurance/activity tolerance, gait, locomotion, and balance, ergonomics and body mechanics, neuromotor, posture, sensory integration/regulation, visual/perceptual. Pt has a significant balance impairments d/t his visual impairments, impaired sensations on (L) side putting pt at a higher risk of falling. Pt is now admitted to IRF for therapies f or neuro re-education and to inc.independence in functional mobility. Pt appears to have a visual field cut on (L) and needed cuing to scan to the (L) side to av oid obstacles. Pt had several occasions wherein he will run into things on his (L) side if not cued to scan. Pt has a PTSD and reported that memories from the [place] war triggers it. Pt was having some anxiety during this tx session and requested for meds. RN cleared patient for participation in therapy. Patient was agreeable to therapy. Patient participated without adverse reaction. RN debriefed on therapy session and patient status. P atient is encouraged to ambulate into hallway with nursing staff. It is encouraged that the patient be up in chair for all meals. Recommended mobility with nursing: Day Night into the bathroom and into the hallway into the bathroom No Assistive Device No Assistive Device contact guard assistance contact guard assistance Barriers to discharge and functional limitations include decreased functional activity tole abram, decreased bed mobility, decreased functional transfers, decreased functional gait dis tance, decreased gait velocity, stairs at home, demonstrating need for 24/7 supervision, not yet able to mobilize at level safe for home discharge, [facility] indicating significant impairm ent with basic functional mobility, and medical status. Efren will benefit from therapeutic intervention to address impairments and increase safety and independence with activities necessary for safe discharge. Refer below for specific det ails regarding functional levels. Precautions/Limitations: falls, vision impairment Precaution Comment: light ex per Dr. Thomas for first 3 days in rehab Previous Level of Function: Transferring: independent Ambulation: independent Toileting: independent Bathing: independent Dressing: independent(Recently since stroke pt reports need for assist with pants, belt, so cks and shoes, however indep prior) Eating: independent Communication: understands/communicates without difficulty Swallowin-->swallows foods/liquids without difficulty Equipment Currently Used at Home: none Prior Functional Level Comment: Pt was independent with IADL's and ambulates w/o AD. Pt wa s still driving. Hx of TBI approx.8 yrs ago and affected STM Potential available assistance at discharge: Significant Relationships: spouse Provides Primary Care For: pet(s) Role Relationships Comment: Supportive spouse Living Environment/Accessibility: Lives With: spouse Living Arrangements: house Home Accessibility: stairs to enter home Number of Stairs to Enter Home: 6 Number of Stairs Within Home: 0 Stair Railings at Home: outside, present at both sides Financial Concerns: none Transportation Available: car, family or friend will provide Living Environment Comment: Tub shower, no grab bar but wishes he had some, [facility], shower ch air. Patient/Family s Goals: to be independent Rehabilitation potential: good, to achieve stated therapy goals Physical Therapy Discharge Recommendations are: Recommended discharge disposition: home with assist Post discharge physical therapy recommendation: outpatient therapy Equipment Recommendations: none Planned Interventions: balance training, bed mobility training, gait training, home exerci se program, patient/family education, strengthening, transfer training, stair training, chay r coordination training, neuromuscular re-education Frequency: daily(1-2x/day, IRF) Patient Status/Goals: Reflects last filed data and may be from multiple contributors. Bed Mobility SBA for safety Assistive Device: none Roll Left, Level of [place]: stand by assist, verbal cues required Roll Right, Level of [place]: stand by assist, verbal cues required Scoot/Bridge, Level of [place]: stand by assist Supine to Sit, Level of [place]: stand by assist, verbal cues required Sit to Supine, Level of [place]: stand by assist, verbal cues required Impairments: coordination impaired, sensation decreased, sensory feedback impaired, impaire d vision Transfers verbal cues to scan to (L) side for safety. Pt tends to turn towards (R) side to see anamaria r d/t visual impairments. Bed-Chair, Level of [place]: contact guard assist, verbal cues required Chair-Bed, Level of [place]: contact guard assist, verbal cues required Yfy-Hyayq-Caq, Assistive Device: none Sit-Stand, Level of [place]: contact guard assist, verbal cues required Stand-Sit, Level of [place]: contact guard assist, verbal cues required Jqi-[id number], Assistive Device: none Safety Issues: step length decreased, weight-shifting ability decreased, sequencing ability decreased, balance decreased during turns Impairments: impaired balance, impaired vision, sensory feedback impaired, postural control impaired, coordination impaired, sensation decreased Gait drifting to (L) and bumps into obstacles on (L) side. verbal cues to scan to (L). Gait ins tability with head turns. Level of [place]: contact guard assist, verbal cues required Assistive Device: none Distance (feet): 50' x 3 Stairs hand over hand for placement of (L) hand on the rail. Curb training Min A Number of Stairs: 8 Handrail Location: both sides Level of [place]: contact guard assist, verbal cues required Assistive Device: 2 rails Technique Used: step to step (ascending), step to step (descending) Safety Issues: balance decreased during turns, weight-shifting ability decreased Impairments: impaired balance, coordination impaired, motor control impaired, impaired visi on, sensory feedback impaired Balance 6 meter gait velocity= 0.7 m/sec. Gait Velocity: Efren scored 0.7 meters/seconds on the Gait Velocity Test (with out ), indicating he is a fa ll risk. Interpretation: - Need for fall risk [...] 1.4 m/s For more information, please visit: [email or web address] Sitting Balance: Static: normal balance Sitting Balance: Dynamic: normal balance Standing Balance: Static: good balance Standing Balance: Dynamic: (F+) Functional Endurance Fair, able to tolerate moderate activities w/o c/o fatigue. ROM L LE ROM: WFL R LE ROM: WFL Strength L LE Strength: grossly graded 4+/5 R LE Strength: grossly 5/5 [facility] BASIC MOBILITY Turning from your back to [...] Mobility Six Click AM-PAC: 18 Completed the [facility] Activity Measure for Post Acute Care (AM-PAC) "6 Clicks" [facility] Mobility Inpatient Short Form. This version of the AM-PAC is an assessment tool used to measure a person's level of disability in performing basic mobility tasks. Erfen's score in dicates a performance of 46.58% impairment in the functioning of basic mobility. Raw Score - Functional Limitation % (for [facility]) - "Severity Modifier" CN 6 - 100.00 [...] Date Most Recent Value STG Review Date 04/18/20 at 04/11/2020 1108 LTG Review Date 04/25/20 at 04/11/2020 1108 Jzexxg-Uog-Sizfbm Goal Most Recent Value STG Status new at 04/11/2020 1108 STG [place] Level supervised at 04/11/2020 1108 STG Assistive Device none at 04/11/2020 1108 LTG Status new at 04/11/2020 1108 LTG [place] Level modified independent at 04/11/2020 1108 LTG Assistive Device none at 04/11/2020 1108 Vci-Bojqv-Hqz Goal Most Recent Value STG Status new at 04/11/2020 1108 STG [place] Level supervised at 04/11/2020 1108 STG Assistive Device none at 04/11/2020 1108 LTG Status new at 04/11/2020 1108 LTG [place] Level modified independent at 04/11/2020 1108 LTG Assistive Device none at 04/11/2020 1108 Gait Goal Most Recent Value STG Status new at 04/11/2020 1108 STG [place] Level stand by assist at 04/11/2020 1108 STG Assistive Device none at 04/11/2020 1108 STG Distance (feet) 300' at 04/11/2020 1108 LTG Status new at 04/11/2020 1108 LTG [place] Level supervised at 04/11/2020 1108 Stair Goal Most Recent Value STG Status new at 04/11/2020 1108 STG [place] Level supervised at 04/11/2020 1108 STG Assistive Device 2 rails at 04/11/2020 1108 STG Number of Stairs 12 at 04/11/2020 1108 LTG Status new at 04/11/2020 1108 LTG [place] Level modified independent at 04/11/2020 1108 LTG Assistive Device 2 rails at 04/11/2020 1108 LTG Number of Stairs 12 at 04/11/2020 1108 Additional Goal #1 PT Most Recent Value STG Status new at 04/11/2020 1108 STG Pt will demonstrate improve DGI score to 15/24 to reduce fall risk. at 04/11/2020 1108 LTG Status new at 04/11/2020 1108 LTG Improve DGI score to >19/24 to reduce fall rsik. at 04/11/2020 1108 Electronically signed by: TABATHA DUQUE, PT, 04/11/2020 6:01 PM lan of Care - Maria Guo MSW - 04/11/2020 9:32 AM PDTInitial IRF Admission Note [employer] Manager met with Efren in Room 343 for initial encounter since being admitted to the IR F Unit on 04/10/20. Documentation Provided CM reviewed the IR Disclosure Statement and the Patient Right's Consent Form, highlighting the IRF requirements and plan of care, expected length of stay to be 10 days, and his financ ial responsibility. CM reviewed with Efren the IRF Orientation Checklist and he is aware of a nd agreeable to the requirements. He was provided with [facility] contact information for all other questions or concerns. [facility] authorization for IRF services was authorized for Efren, with an end date set for 0, AUTH #_[id number], with contact GRAYSON Marquez @ [phone]. JOLENE was also able to connect with Efren's , Susie, who is agreeable to the admittance and plans on bringing clothing and personal items to the hospital on 04/12/20, for him to utilize throughout his stay in the IRF. .Electronically signed by: GRAYSON Keating 04/11/2020 9:37 AM lan of Care - Gely Muse OT - 04/11/2020 9:22 AM PDTFormatting of this note might be different from the origi nal. IRF Occupational Therapy Plan of Care Initial Evaluation, Treatment Note Summary: Efren presents to occupational therapy with decreased safety/capacity for indep with ADLs, IADLs, functional mobility/tfs following admission after Ischemic cerebrovascular accident (CVA) . Objective exam reveals impairments with arousal, attention, and cognition ; ergonomics and body mechanics; functional endurance/activity tolerance; gait, locomotion, and balance; sensory integration/regulation; visual/perceptual; motor function; neuromotor. Session included BP checks, footware mgmt, functional mob/tfs, toileting/toilet tf, standin g grooming. RN cleared patient for participation in therapy. Patient was agreeable to therapy. Patient participated without adverse reaction. It is encouraged that the patient be up in chair for all meals. RUE Dinamap Bps with BK sherry Seated 117/77 HR 58 After approx 1 min standing 110/72 HR 71 After approx 3 min standing 112/74 HR 74 Recommended toileting with nursing: Day Night toilet toilet No Assistive Device No Assistive Device stand by assistance contact guard assistance stand by assistance contact guard assistance Barriers to discharge and functional limitations include decreased insight into safety and deficits, decreased functional activity tolerance, decreased bed mobility, decreased functio nal transfers, decreased ability to perform ADLs, decreased ability to perform IADLs, decrea sed ability to perform medication management, not yet able to mobilize at level safe for carmen e discharge and medical status. Efren will benefit from therapeutic intervention to address impairments and increase safety and independence with activities necessary for safe discharge. Refer below for specific det ails regarding functional levels. Precautions/Limitations: falls, vision impairment Precaution Comment: light ex per Dr. Thomas for first 3 days in rehab Previous Level of Function: Transferring: independent Ambulation: independent Toileting: independent Bathing: independent Dressing: independent(Recently since stroke pt reports need for assist with pants, belt, so cks and shoes, however indep prior) Eating: independent Communication: understands/communicates without difficulty Swallowin-->swallows foods/liquids without difficulty Equipment Currently Used at Home: none Prior Functional Level Comment: Manages stairs indep. Pt reports no AD use, has used walker though it doesn't work well for pt. Pt reports prior indep though recent need for assist wi th LB dressing since stroke, indep dressing prior. Pt reports new vision deficits, especiall y on the L side. Pt reports does meal preparation, though he does some microwaving, wif e does laundry. Pt reports he and spouse manage finances, manage shopping/list together. Pt reports performs med mgmt for him. Potential available assistance at discharge: Significant Relationships: spouse Provides Primary Care For: pet(s) Role Relationships Comment: Supportive spouse Living Environment/Accessibility: Lives With: spouse Living Arrangements: house Home Accessibility: stairs to enter home Number of Stairs to Enter Home: 6 Number of Stairs Within Home: 0 Stair Railings at Home: outside, present at both sides Financial Concerns: none Transportation Available: car, family or friend will provide Living Environment Comment: Toilet with riser/handles. Tub shower, no grab bar but wishes h e had some, [facility], shower chair. Patient/Family s Goals: Pt expresses desire to improve on "everything," "anything" he can . Rehabilitation potential: good, to achieve stated therapy goals Occupational Therapy Discharge Recommendations are: Recommended discharge disposition: home with assist Post discharge occupational therapy recommendation: home health, other (see comment), outp atient therapy(Will continue to determine pt benefit from post d/c therapy HHOT vs outpatien t, TBD) Equipment Recommendations: sisal operator(Additional equipment TBD) Planned Interventions:ADL retraining, balance training, fine motor coordination training, f unctional endurance training, motor coordination training, neuromuscular re-education, patie nt/family education, transfer training, visual/perceptual retraining, IADL retraining, bed m obility training, ROM (Range of Motion), strengthening, other (see comments)(sensory) Recommended Frequency: (rehab schedule) Patient Status/Goals: Reflects last filed data and may be from multiple contributors. ADLs OT donned BK teds this session, pt able to doff/don socks surrounding teds without AE, vcs provided. LB Dressing, Level of [place]: moderate assist (50% patient effort), set up required, verbal cues required Assistive Device: none LB Dressing Assess/Train, Position: sitting LB Dressing Impairments: sensation decreased, impaired vision, decreased flexibility, coord ination impaired, motor control impaired CGA standing void at toilet, incidental assist for finishing tying of hospital pants Toileting, Level of [place]: Minimal assist (75% patient effort); setup required; christin bal cues requried Assistive Device: grab bar Toileting Assess/Train, Position: supported standing Toileting impairments: impaired vision; coordination impaired; impaired functional enduranc e/activity tolerance; sensation decreased SBA for standing oral cares at sink, pt reported presence of visual deficits during oral ca res. Grooming, Level of [place]: stand by assist Assistive Device: none Grooming Assess/Train, Position: standing Grooming Impairments: coordination impaired, impaired vision, sensation decreased Functional Endurance Fair activity tolerance overall. Cognitive Pt pleasantly participatory and cooperative throughout. Pt with some inpulsivity, stood a f ew times without prompting from OT Mood/Behavior: calm, cooperative Orientation: oriented x 4 Arousal Level: opens eyes spontaneously Speech: clear, spontaneous, logical Bed Mobility No bed mob this session, pt up in chair throughout. Transfers CGA for sit>stand at chair, SBA for stand>sit. Pt performed standing toileting at [facility], also performed toilet tf at [facility] grab bar use. CGA for safety during functional mob. Pt with some impulsivity, performed some stands from chair during session when not cued by OT. 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 Pt reports that LUE muscles sometimes hurt with con tact, LLE feels like he pulled his hamstring. Sensation: Pt reports tingling on L hand, reports it feels puffy and tingly. Coordination: Bilateral finger individuation grossly WFL with extra time/effort. Able to do with both e yes closed for both hands, some extra focus when performing on L. Vision: Vision Comments: Pt reports L peripheral vision deficits and reports that he gets headaches when he tries to read for a long time which didn't use to happen. OT Goal Review Date Most Recent Value STG Review Date 04/18/20 at 04/11/202022 LTG Review Date 04/25/20 at 04/11/2020 0922 Grooming Goal Most Recent Value STG Status new, progressing at 04/11/202022 STG [place] Level supervised at 04/11/2020 0922 STG Position standing at 04/11/2020 0922 STG Adaptive Equipment none at 04/11/2020 0922 LTG Status new at 04/11/2020921 LTG [place] Level modified independent at 04/11/2020 0922 LTG Position standing at 04/11/2020 0922 LTG Adaptive Equipment none at 04/11/2020 0922 Bathing Goal Most Recent Value STG Status new at 04/11/2020 0922 STG [place] Level supervised, set up required, verbal cues required at 04/11/2020 092 2 STG Adaptive Equpiment grab bars, shower head, detachable, shower chair, shower chair with back, sponge, long handled at 04/11/2020921 STG Position sitting, standing at 04/11/2020921 LTG Status new at 04/11/2020921 LTG [place] Level modified independent at 04/11/2020921 LTG Adaptive Equpiment grab bars, shower head, detachable, sponge, long handled, shower ch air, shower chair with back at 04/11/2020921 LTG Position sitting, standing at 04/11/2020921 UB Dressing Goal Most Recent Value STG Status new at 04/11/2020921 STG [place] Level supervised, set up required, verbal cues required at 04/11/2020 09 2 STG Adaptive Equipment none at 04/11/2020921 LTG Status new at 04/11/2020921 LTG [place] Level modified independent at 04/11/2020921 LTG Adaptive Equipment none at 04/11/2020921 LB Dressing Goal Most Recent Value STG Status new at 04/11/2020921 STG [place] Level supervised, set up required, verbal cues required at 04/11/2020 092 2 STG Adaptive Equipment sock-aid, shoe horn, long handled, sisal operator at 04/11/2020921 LTG Status new at 04/11/2020921 LTG [place] Level modified independent at 04/11/2020921 LTG Adaptive Equipment shoe horn, long handled, sock-aid, sisal operator at 04/11/2020921 Toileting Goal Most Recent Value STG Status new, progressing at 04/11/2020921 STG [place] Level supervised, set up required, verbal cues required at 04/11/2020 092 2 STG Assistive Device grab bar at 04/11/202022 LTG Status new at 04/11/2020921 LTG [place] Level modified independent at 04/11/2020921 LTG Assistive Device grab bar at 04/11/2020921 Toilet Transfer Goal Most Recent Value STG Status new, progressing at 04/11/2020921 STG [place] Level supervised, set up required, verbal cues required at 04/11/2020 092 2 STG Assistive Device grab bars at 04/11/2020921 LTG Status new at 04/11/2020921 LTG [place] Level modified independent at 04/11/2020921 LTG Assistive Device grab bars at 04/11/2020921 Tub/Shower Transfer Goal Most Recent Value Tub/Shower Type tub/shower combo at 04/11/2020921 STG Status new at 04/11/2020921 STG [place] Level supervised, set up required, verbal cues required at 04/11/2020 09 2 STG Assistive Device grab bars, shower chair at 04/11/2020921 LTG Status new at 04/11/2020921 LTG [place] Level modified independent at 04/11/2020921 LTG Assistive Device grab bars, shower chair at 04/11/2020921 IADL Goal Most Recent Value STG Status new at 04/11/2020921 STG Pt will be supervision vcs setup prn for meal preparation task at 04/11/2020921 LTG Status new at 04/11/2020921 LTG Pt will be Mod I for meal preparation task at 04/11/2020921 Vision Goal Most Recent Value STG Status new at 04/11/2020921 STG Pt will participate in eye exercises to increase ocular alignment, initiate saccadic e ye motion, increase VOR with eye focusing and decrease diplopia as well as increase depth pe rception and spatial relations to improve visual functions for ADLs, functional mobility/tfs . at 04/11/2020921 LTG Status new at 04/11/2020921 LTG Pt will report improvements to visual deficits impact on ADLs and utilize visual compe nsatory strategies indep at 04/11/2020921 Additional Goals #1 OT Most Recent Value STG Status new at 04/11/2020921 STG Pt will participate in tasks to increase/improve LUE sensation and coordination at 921 LTG Status new at 04/11/2020921 LTG Pt will be Mod I for performance of theraputty exercises to increase L hand FMC. at 0 04/11/2020921 Electronically signed by: Irma Muse OT, 04/11/2020 12:51 PM lan of [place] - Daisy Morrow RN - 04/11/2020 3:30 AM PDTPt [id number] sba to br bed alarm in place stubborn at times and does not always call. Vss on ra. 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 Pt c/o of anxiety at beginning of shift states he requested klonopin for PTSD, given per order. Pt denies pain voiding without problems las t bm 04/10. Pt slept well between cares.Electronically signed by Daisy Morrow RN at 020 3:46 AM PDTdocumented in this encounter Plan of Treatment +--------+---------+ + + + [...] | +--------+---------+ + + + + + +--------+ + + | Name | Type | Priori | Associated Diagnoses | Order Schedule | | | | ty | | | + + +--------+ + + | Home Health, | Outpatient | Routin | Essential | Ordered: 04/23/2020 | | External - AMB | Referral | e | hypertension | | | Referral | | | Ischemic | | | | | | cerebrovascular | | | | | | accident (CVA) (HCC) | | | | | | Tobacco abuse | | | | | | Panic anxiety | | | | | | syndrome Chronic | | | | | | post-traumatic | | | | | | stress disorder | | | | | | (PTSD) Left | | | | | | homonymous | | | | | | hemianopsia due to | | | | | | recent cerebral | | | | | | infarction | | | | | | Carlton-neglect of left | | | | | | side | | + + +--------+ + + | Home Health, | Outpatient | Routin | Essential | Ordered: 04/23/2020 | | External - AMB | Referral | e | hypertension | | | Referral | | | Ischemic | | | | | | cerebrovascular | | | | | | accident (CVA) (HCC) | | | | | | Tobacco abuse | | | | | | Panic anxiety | | | | | | syndrome Chronic | | | | | | post-traumatic | | | | | | stress disorder | | | | | | (PTSD) Left | | | | | | homonymous | | | | | | hemianopsia due to | | | | | | recent cerebral | | | | | | infarction | | | | | | Carlton-neglect of left | | | | | | side | | + + +--------+ + + documented as of this encounter Procedures + +--------+ + + + | Procedure Name | Priori | Date/Time | Associated Diagnosis | Comments | | | ty | | | | + +--------+ + + + | CT HEAD WO CONTRAST | STAT | 04/16/2020 | | Results for this | | | | 11:18 PM | | procedure are in the | | | | PDT | | results section. | + +--------+ + + + | POC GLUCOSE | Routin | 04/13/2020 | | Results for this | | | e | 6:09 AM | | procedure are in the | | | | PDT | | results section. | + +--------+ + + + | POC GLUCOSE | Routin | 04/12/2020 | | Results for this | | | e | 5:50 PM | | procedure are in the | | | | PDT | | results section. | + +--------+ + + + | POC GLUCOSE | Routin | 04/12/2020 | | Results for this | | | e | 6:02 AM | | procedure are in the | | | | PDT | | results section. | + +--------+ + + + | POC GLUCOSE | Routin | 04/11/2020 | | Results for this | | | e | 5:44 PM | | procedure are in the | | | | PDT | | results section. | + +--------+ + + + | CBC WITH | Routin | 04/11/2020 | | Results for this | | DIFFERENTIAL | e | 7:01 AM | | procedure are in the | | | | PDT | | results section. | + +--------+ + + + | BASIC METABOLIC | Routin | 04/11/2020 | | Results for this | | PANEL | e | 6:29 AM | | procedure are in the | | | | PDT | | results section. | + +--------+ + + + documented in this encounter Results CT Head wo Contrast (04/16/2020 11:18 PM PDT) + + | Specimen | + + | | + + + + + | Impressions | Performed At | + + + | 1. NO EVIDENCE OF TRAUMATIC INJURY OR NEW INTRACRANIAL DISEASE. | [facility] | | 2. SIMILAR PARENCHYMAL HYPOATTENUATION IN THE RIGHT POSTERIOR | | | CEREBRAL ARTERY DISTRIBUTION, CONSISTENT WITH INFARCTION. 3. | | | STABLE CHRONIC INFARCTS IN THE LEFT CENTRUM SEMIOVALE AND LEFT | | | CEREBELLUM. 4. EXTENSIVE VASCULAR CALCIFICATION. 5. | | | SIMILAR PARANASAL SINUS DISEASE, LEFT MIDDLE EAR OPACIFICATION OF | | | BILATERAL MASTOID FLUID. Preliminary results of this study were | | | [facility] on April 16, 2020 at | | | 2351 hours. Dictated and Signed by: Fred Acosta MD | | | Electronically signed: 04/17/2020 7:24 AM | | + + + + + + | Narrative | Performed At | + + + | UNENHANCED HEAD CT 04/16/2020 11:17 PM CLINICAL HISTORY: Head | [facility] | | trauma, abnormal mental status (Age 19-64y) COMPARISON: MRI | | | April 09, CT and CTA April 08 TECHNIQUE: Axial unenhanced images are | | | performed through the head, along with coronal and sagittal | | | reformations. FINDINGS: Hypoattenuation of parenchyma within | | | the mesial right temporal and occipital lobes and right thalamus is | | | again apparent and is similar in extent, allowing for beam hardening, | | | corresponding with regions of ischemia/infarction described on | | | recent MRI. Chronic infarcts are again visible in the left centrum | | | semiovale and superior left cerebellar hemisphere. Additional small | | | hypoattenuating foci are again apparent elsewhere in the | | | frontoparietal white matter and are similar in appearance, favoring | | | chronic, microvascular ischemic change. The ventricles and | | | brainstem are unremarkable. There is no mass effect, evidence of | | | recent intracranial hemorrhage or extra-axial abnormality. Heavily | | | calcified plaque is present in the terminal vertebral and internal | | | carotid arteries. Mucous membrane thickening is again apparent at | | | the right frontoethmoidal recess and within bilateral ethmoid air | | | cells. Low-attenuation fluid or other material persists in the left | | | middle ear cavity. There is opacification of the paucity of left | | | mastoid air cells as well as scattered right mastoid air cells. | | | There is periapical lucency involving right maxillary molars. No | | | fracture is visible. | | + + + + + | Procedure Note | + + | Jose, Rad Results In - 04/17/2020 7:27 AM PDT UNENHANCED HEAD CT 04/16/2020 11:17 PM | | | | CLINICAL HISTORY: Head trauma, abnormal mental status (Age 19-64y) | | | | COMPARISON: MRI April 09, CT and CTA April 08 | | | | TECHNIQUE: Axial unenhanced images are performed through the head, along with | | coronal and sagittal reformations. | | | | FINDINGS: Hypoattenuation of parenchyma within the mesial right temporal and | | occipital lobes and right thalamus is again apparent and is similar in extent, | | allowing for beam hardening, corresponding with regions of ischemia/infarction | | described on recent MRI. Chronic infarcts are again visible in the left centrum | | semiovale and superior left cerebellar hemisphere. Additional small | | hypoattenuating foci are again apparent elsewhere in the frontoparietal white | | matter and are similar in appearance, favoring chronic, microvascular ischemic | | change. The ventricles and brainstem are unremarkable. There is no mass | | effect, evidence of recent intracranial hemorrhage or extra-axial abnormality. | | Heavily calcified plaque is present in the terminal vertebral and internal | | carotid arteries. Mucous membrane thickening is again apparent at the right | | frontoethmoidal recess and within bilateral ethmoid air cells. Low-attenuation | | fluid or other material persists in the left middle ear cavity. There is | | opacification of the paucity of left mastoid air cells as well as scattered | | right mastoid air cells. There is periapical lucency involving right maxillary | | molars. No fracture is visible. | | | | IMPRESSION: | | 1. NO EVIDENCE OF TRAUMATIC INJURY OR NEW INTRACRANIAL DISEASE. | | | | 2. SIMILAR PARENCHYMAL HYPOATTENUATION IN THE RIGHT POSTERIOR CEREBRAL ARTERY | | DISTRIBUTION, CONSISTENT WITH INFARCTION. | | | | 3. STABLE CHRONIC INFARCTS IN THE LEFT CENTRUM SEMIOVALE AND LEFT CEREBELLUM. | | | | 4. EXTENSIVE VASCULAR CALCIFICATION. | | | | 5. SIMILAR PARANASAL SINUS DISEASE, LEFT MIDDLE EAR OPACIFICATION OF BILATERAL | | MASTOID FLUID. | | | | Preliminary results of this study were reported by the [facility] | | radiologist on April 16, 2020 at 2351 hours. | | | | Dictated and Signed by: Fred Acosta MD | | Electronically signed: 04/17/2020 7:24 AM | + + + +---------+ + + | Performing | Address | City/State/Zipcode | Phone Number | | Organization | | | | + +---------+ + + | [facility] | | | | + +---------+ + + POC Glucose (04/13/2020 6:09 AM PDT) + +-------+ + + + | Component | Value | Ref Range | Performed | Pathologist | | | | | At | Signature | + +-------+ + + + | Glucose, | 90 | 70 - 109 mg/dL | [facility] | | | [facility] | [facility] | | | | | | [facility] [...] + | [facility] | [address] | [place] | [phone] | | [facility] | | [address] | | | - LABORATORY | | | | + + + + + POC Glucose (04/12/2020 5:50 PM PDT) + +-------+ + + + | Component | Value | Ref Range | Performed | Pathologist | | | | | At | Signature | + +-------+ + + + | Glucose, | 107 | 70 - 109 mg/dL | [facility] | | | POC | | | [facility] | | | | | | MEDICAL [...] [address] | [place] | [phone] | | [facility] | | [address] | | | - LABORATORY | | | | + + + + + POC Glucose (04/12/2020 6:02 AM PDT) + +-------+ + + + | Component | Value | Ref Range | Performed | Pathologist | | | | | At | Signature | + +-------+ + + + | Glucose, | 94 | 70 - 109 mg/dL | [facility] | | | [facility] | | | [facility] | | | | | | [facility] [...] [address] | [place] | [phone] | | [facility] | | [address] | | | - LABORATORY | | | | + + + + + POC Glucose (04/11/2020 5:44 PM PDT) + +-------+ + + + | Component | Value | Ref Range | Performed | Pathologist | | | | | At | Signature | + +-------+ + + + | Glucose, | 102 | 70 - 109 mg/dL | [facility] | | | [facility] | | | [facility] | | | | | | MED[facility] [...] [address] | [place] | [phone] | | [facility] | | [address] | | | - LABORATORY | | | | + + + + + CBC with Differential (04/11/2020 7:01 AM PDT) + +-------+ + + + | Component | Value | Ref Range | Performed | Pathologist | | | | | At | Signature | + +-------+ + + + | White Blood | 6.5 | 4.0 - 11.0 K/uL | [facility] | | | Cells | | | [facility] | | | | | | MEDICAL | | | | | | CENTER - | | | | | | LABORATORY | | + +-------+ + + + | Red Blood | 4.43 | 4.30 - 5.70 | [facility] | | | Cells | | M/uL | [facility] | | | | | | MEDICAL | | | | | | CENTER - | | | | | | LABORATORY | | + +-------+ + + + | Hemoglobin | 15.2 | 13.5 - 18.0 | [facility] | | | | | g/dL | [facility] | | [facility] | | | MED[facility] | | | | | | CENTER - | | | | | | LABORATORY | | + +-------+ + + + | Hematocrit | 43.9 | 40.0 - 51.0 % | [facility] | | | | | | [facility] | | | | | | [facility] | | | | | | CENTER - | | | | | | LABORATORY | | + +-------+ + + + | MCV | 99.1 | 83.0 - 101.0 fL | [facility] | | | | | | [facility] | | | | | | [facility] | | | | | | CENTER - | | | | | | LABORATORY | | + +-------+ + + + | MCH | 34.3 | 28.0 - 35.0 pg | [facility] | | | | | | [facility] | | | | | | [facility] | | | | | | CENTER - | | | | | | LABORATORY | | + +-------+ + + + | MCHC | 34.6 | 32.0 - 36.0 | [facility] | | | | | g/dL | [facility] | | | | | | MEDICAL | | | | | | CENTER - | | | | | | LABORATORY | | + +-------+ + + + | RDW-CV | 11.4 | <15.0 % | [facility] | | | | | | [facility] | | | | | | [facility] | | | | | | CENTER - | | | | | | LABORATORY | | + +-------+ + + + | RDW-SD | 41.8 | 35.1 - 46.3 fL | [facility] | | | | | | [facility] | | | | | | [facility] | | | | | | CENTER - | | | | | | LABORATORY | | + +-------+ + + + | Platelet | 235 | 140 - 440 K/uL | [facility] | | | Count | | | [facility] | | | | | | MEDICAL | | | | | | CENTER - | | | | | | LABORATORY | | + +-------+ + + + | MPV | 9.4 | 6.5 - 12.4 fL | [facility] | | | | | | [facility] | | | | | | [facility] | | | | | | CENTER - | | | | | | LABORATORY | | + +-------+ + + + | % | 50.3 | 45.0 - 82.0 % | [facility] | | | Neutrophils | | | [facility] | | | | | | MEDICAL | | | | | | CENTER - | | | | | | LABORATORY | | + +-------+ + + + | % | 36.2 | 20.0 - 45.0 % | [facility] | | | Lymphocytes | | | [facility] | | | | | | MEDICAL | | | | | | CENTER - | | | | | | LABORATORY | | + +-------+ + + + | % Monocytes | 9.8 | 4.0 - 12.0 % | [facility] | | | | | | [facility] | | | | | | MEDICAL | | | | | | CENTER - | | | | | | LABORATORY | | + +-------+ + + + | % | 2.8 | 0.0 - 5.0 % | [facility] | | | Eosinophils | | | [facility] | | | | | | MEDICAL | | | | | | CENTER - | | | | | | LABORATORY | | + +-------+ + + + | % Basophils | 0.6 | 0.0 - 1.0 % | [facility] | | | | | | [facility] | | | | | | [facility]ICAL | | | | | | CENTER - | | | | | | LABORATORY | | + +-------+ + + + | % Immature | 0.3 | 0.0 - 0.4 % | [facility] | | | Granulocyte | | | [facility] | | | s | | | MEDICAL | | | | | | CENTER - | | | | | | LABORATORY | | + +-------+ + + + | Absolute | 3.27 | 1.80 - 8.50 | [facility] | | | Neutrophils | | K/uL | [facility] | | | | | | MEDICAL | | | | | | CENTER - | | | | | | LABORATORY | | + +-------+ + + + | Absolute | 2.35 | 0.60 - 3.20 | [facility] | | | Lymphocytes | | K/uL | [facility] | | | | | | MEDICAL | | | | | | CENTER - | | | | | | LABORATORY | | + +-------+ + + + | Absolute | 0.64 | 0.00 - 1.00 | [facility] | | | Monocytes | | K/uL | [facility] | | | | | | MEDICAL | | | | | | CENTER - | | | | | | LABORATORY | | + +-------+ + + + | Absolute | 0.18 | 0.00 - 0.40 | [facility] | | | Eosinophils | | K/uL | [facility] | | | | | | MEDICAL | | | | | | CENTER - | | | | | | LABORATORY | | + +-------+ + + + | Absolute | 0.04 | 0.00 - 0.10 | [facility] | | | Basophils | | K/uL | [facility] | | | | | | MEDICAL | | | | | | CENTER - | | | | | | LABORATORY | | + +-------+ + + + | Absolute | 0.02 | 0.00 - 0.03 | [facility] | | | Immature | | K/uL | [facility] | | | Granulocyte | | | MEDICAL | | | s | | | CENTER - | | | | | | LABORATORY | | + +-------+ + + + | % nRBC | 0 | 0 - 2 per 100 | [facility] | | | | | WBCs | [facility] | | | | | | MEDICAL | | | | | | CENTER - | | | | | | LABORATORY | | + +-------+ + + + | Absolute | 0.00 | 0.00 - 0.01 | [facility] | | | nRBC | | K/uL | [facility] | | | | | | MEDICAL [...] + | [facility] | [address] | [place] | [phone] | | [facility] | | [address] | | | - LABORATORY | | | | + + + + + Basic Metabolic Panel (04/11/2020 6:29 AM PDT) + + + + + + | Component | Value | Ref Range | Performed | Pathologist | | | | | At | Signature | + + + + + + | Na | 141 | 136 - 145 | [facility] | | | | | mmol/L | [facility] | | | | | | MEDICAL | | | | | | CENTER - | | | | | | LABORATORY | | + + + + + + | K | 4.3 | 3.4 - 5.1 | [facility] | | | | | mmol/L | [facility] | | | | | | MEDICAL | | | | | | CENTER - | | | | | | LABORATORY | | + + + + + + | Cl | 112 (H) | 98 - 107 mmol/L | [facility] | | | | | | [facility] | | | | | | MEDICAL | | | | | | CENTER - | | | | | | LABORATORY | | + + + + + + | CO2 | 25 | 20 - 31 mmol/L | [facility] | | | | | | [facility] | | | | | | MEDICAL | | | | | | CENTER - | | | | | | LABORATORY | | + + + + + + | Anion Gap | 4 | 3 - 16 mmol/L | [facility] | | | | | | [facility] | | | | | | MEDICAL | | | | | | CENTER - | | | | | | LABORATORY | | + + + + + + | Glucose | 90 | 60 - 106 mg/dL | [facility] | | | | | | [facility] | | | | | | MEDICAL | | | | | | CENTER - | | | | | | LABORATORY | | + + + + + + | BUN | 9 | 9 - 23 mg/dL | [facility] | | | | | | [facility] | | | | | | MEDICAL | | | | | | CENTER - | | | | | | LABORATORY | | + + + + + + | Creatinine | 0.76 | 0.70 - 1.30 | [facility] | | | | | mg/dL | [facility] | | | | | | MEDICAL | | | | | | CENTER - | | | | | | LABORATORY | | + + + + + + | eGFR, | >60Comment: GLOMERULAR | >=60 | [facility] | | | non- | FILTRATION | mL/min/1.73m2 | [facility] | | | [place] | RATE,ESTIMATED | | MEDICAL | | | | mL/min/1.32s4Dddv than | | CENTER - | | [...] + + + + | Calcium | 9.9 | 8.7 - 10.4 | [facility] | | | | | mg/dL | [facility] | | | | | | [facility]ICAL | | | | | | CENTER - | | | | | | LABORATORY | | + + + + + + | BUN/Creatin | 11.8 | | [facility] | | | ine [...] + + + + + | [facility] | [address] | [place] | [phone] | | [facility] | | [address] | | | - LABORATORY | | | | + + + + + documented in this encounter Visit Diagnoses + + | Diagnosis | + + | Essential hypertension Unspecified essential hypertension | + + | Ischemic cerebrovascular accident (CVA) (HCC) | + + | Tobacco abuse Tobacco use disorder | + + | Panic anxiety syndrome Panic disorder without agoraphobia | + + | Chronic post-traumatic stress disorder (PTSD) | + + | Left homonymous hemianopsia due to recent cerebral infarction | + + | 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 | + + documented in this encounter [...] C (100.4 F), | | | Starting [facility] 04/10/20 at 1850, | | | Discharge Readmit | | + +---+ | | | + +---+ | acetaminophen (TYLENOL) | | | suppository 650 mg 650 mg, | | | Rectal, EVERY 4 HOURS PRN, Pain, | | | Fever, temperature > or equal to | | | 38.0 C (100.4 F), Starting [facility] | | | 04/10/20 at 1850, If unable to | | | take oral., Discharge Readmit | | + +---+ | | | + +---+ + +-------+ +--------+---+---+ | acetaminophen (TYLENOL) tablet | Given | 04/21/20 | 650 mg | | | | 650 mg 650 mg, Oral, EVERY 4 | | 20 4:15 | | | | | HOURS PRN, Pain, Fever, | | PM PDT | | | | | temperature > or equal to 38.0 C | | | | | | | (100.4 F), Starting [facility] 04/10/20 | | | | | | | at 1850, Discharge Readmit | | | | | | + +-------+ +--------+---+---+ +-------+ +--------+---+---+ | Given | 04/21/20 | 650 mg | | | | | 20 1:38 | | | | | | AM PDT | | | | +-------+ +--------+---+---+ | Given | 04/20/20 | 650 mg | | | | | 20 2:29 | | | | | | PM PDT | | | | +-------+ +--------+---+---+ +---+---+ | | | +---+---+ + +-------+ +--------+---+---+ | ALPRAZolam (XANAX) tablet 0.5 | Given | 04/22/20 | 0.5 mg | | | | mg 0.5 mg, Oral, 3 TIMES DAILY | | 20 10:47 | | | | | PRN, Anxiety, Starting [place] | | AM PDT | | | | | 04/10/20 at 1850, Discharge | | | | | | | Readmit | | | | | | + +-------+ +--------+---+---+ +-------+ +--------+---+---+ | Given | 04/21/20 | 0.5 mg | | | | | 20 4:15 | | | | | | PM PDT | | | | +-------+ +--------+---+---+ | Given | 04/21/20 | 0.5 mg | | | | | 20 2:30 | | | | | | PM PDT | | | | +-------+ +--------+---+---+ +---+---+ | | | +---+---+ + +-------+ +-------+---+---+ | aspirin EC tablet 81 mg 81 mg, | Given | 04/23/20 | 81 mg | | | | Oral, DAILY, First dose (after | | 20 8:45 | | | | | last modification) on Tue04/11/20 | | AM PDT | | | | | at 0900, Discharge Readmit | | | | | | + +-------+ +-------+---+---+ +-------+ +-------+---+---+ | Given | 04/22/20 | 81 mg | | | | | 20 8:01 | | | | | | AM PDT | | | | +-------+ +-------+---+---+ | Given | 04/21/20 | 81 mg | | | | | 20 9:42 | | | | | | AM PDT | | | | +-------+ +-------+---+---+ +---+---+ | | | +---+---+ + +-------+ +-------+---+---+ | atorvaSTATin (LIPITOR) tablet | Given | 04/22/20 | 80 mg | | | | 80 mg 80 mg, Oral, NIGHTLY, | | 20 9:07 | | | | | First dose (after last | | PM PDT | | | | | modification) on [facility] 04/10/20 at | | | | | | | 2100, Discharge Readmit | | | | | | + +-------+ +-------+---+---+ +-------+ +-------+---+---+ | Given | 04/21/20 | 80 mg | | | | | 20 9:08 | | | | | | PM PDT | | | | +-------+ +-------+---+---+ | Given | 04/20/20 | 80 mg | | | | | 20 8:03 | | | | | | PM PDT | | | | +-------+ +-------+---+---+ +---+---+ | | | +---+---+ + +-------+ +-------+---+---+ | busPIRone (BUSPAR) tablet 10 mg | Given | 04/23/20 | 10 mg | | | | 10 mg, Oral, 2 TIMES DAILY, | | 20 8:45 | | | | | First dose (after last | | AM PDT | | | | | modification) on Tue04/22/20 at | | | | | | | 2100, Discharge Readmit | | | | | | + +-------+ +-------+---+---+ +-------+ +-------+---+---+ | Given | 04/22/20 | 10 mg | | | | | 20 9:07 | | | | | | PM PDT | | | | +-------+ +-------+---+---+ +---+---+ | | | +---+---+ + +-------+ +-------+---+---+ | busPIRone (BUSPAR) tablet 15 mg | Given | 04/22/20 | 15 mg | | | | 15 mg, Oral, 2 TIMES DAILY, | | 20 8:01 | | | | | First dose (after last | | AM PDT | | | | | modification) on Tue04/10/20 at | | | | | | | 2100, Discharge Readmit | | | | | | + +-------+ +-------+---+---+ +-------+ +-------+---+---+ | Given | 04/21/20 | 15 mg | | | | | 20 9:08 | | | | | | PM PDT | | | | +-------+ +-------+---+---+ | Given | 04/21/20 | 15 mg | | | | | 20 9:42 | | | | | | AM PDT | | | | +-------+ +-------+---+---+ +---+---+ | | | +---+---+ + +-------+ +--------+---+---+ | carboxymethylcellulose (PF) | Given | 04/14/20 | 1 drop | | | | (REFRESH CELLUVISC, THERATEARS) | | 20 8:22 | | | | | 1% ophthalmic gel 1 drop 1 drop, | | PM PDT | | | | | Both Eyes, EVERY 1 HOUR PRN, Dry | | | | | | | Eyes, Starting 04/14/20 at | | | | | | | 1346, Discharge Readmit | | | | | | + +-------+ +--------+---+---+ +-------+ +--------+---+---+ | Given | 05/18/20 | 1 drop | | | | | 20 3:30 | | | | | | PM PDT | | | | +-------+ +--------+---+---+ +---+---+ | | | +---+---+ + +-------+ +------+---+---+ | clonazePAM (klonoPIN) tablet 1 | Given | 04/12/20 | 1 mg | | | | mg 1 mg, Oral, NIGHTLY PRN, | | 20 8:53 | | | | | Anxiety, Starting [place] 04/10/20 at | | PM PDT | | | | | 1850, Reproductive Risk: Use | | | | | | | appropriate handling | | | | | | | precautions., Discharge Readmit | | | | | | + +-------+ +------+---+---+ +-------+ +------+---+---+ | Given | 04/11/20 | 1 mg | | | | | 20 8:22 | | | | | | PM PDT | | | | +-------+ +------+---+---+ | Given | 04/10/20 | 1 mg | | | | | 20 8:36 | | | | | | PM PDT | | | | +-------+ +------+---+---+ +---+---+ | | | +---+---+ + +-------+ +------+---+---+ | clonazePAM (klonoPIN) tablet 1 | Given | 04/23/20 | 1 mg | | | | mg 1 mg, Oral, 2 TIMES DAILY | | 20 8:45 | | | | | PRN, Anxiety, Starting Mon | | AM PDT | | | | | 04/14/20 at 1245, Reproductive | | | | | | | Risk: Use appropriate handling | | | | | | | precautions., Discharge Readmit | | | | | | + +-------+ +------+---+---+ +-------+ +------+---+---+ | Given | 04/22/20 | 1 mg | | | | | 20 8:03 | | | | | | AM PDT | | | | +-------+ +------+---+---+ | Given | 04/21/20 | 1 mg | | | | | 20 6:23 | | | | | | AM PDT | | | | +-------+ +------+---+---+ +---+---+ | | | +---+---+ + +-------+ +--------+---+---+ | cloNIDine (CATAPRES) tablet 0.1 | Given | 04/23/20 | 0.1 mg | | | | mg 0.1 mg, Oral, 2 TIMES DAILY, | | 20 8:45 | | | | | First dose (after last | | AM PDT | | | | | modification) on Tue04/11/20 at | | | | | | | 2100, Discharge Readmit | | | | | | + +-------+ +--------+---+---+ +-------+ +--------+---+---+ | Given | 04/22/20 | 0.1 mg | | | | | 20 9:07 | | | | | | PM PDT | | | | +-------+ +--------+---+---+ | Given | 04/22/20 | 0.1 mg | | | | | 20 8:01 | | | | | | AM PDT | | | | +-------+ +--------+---+---+ +---+---+ | | | +---+---+ + +-------+ +--------+---+---+ | cloNIDine (CATAPRES) tablet 0.2 | Given | 04/11/20 | 0.2 mg | | | | mg 0.2 mg, Oral, 2 TIMES DAILY, | | 20 8:07 | | | | | First dose (after last | | AM PDT | | | | | modification) on [facility] 04/10/20 at | | | | | | | 2100, Discharge Readmit | | | | | | + +-------+ +--------+---+---+ +-------+ +--------+---+---+ | Given | 04/10/20 | 0.2 mg | | | | | 20 8:35 | | | | | | PM PDT | | | | +-------+ +--------+---+---+ +---+---+ | | | +---+---+ + +-------+ +-------+---+---+ | clopidogrel (PLAVIX) tablet 75 | Given | 04/23/20 | 75 mg | | | | mg 75 mg, Oral, DAILY, First | | 20 8:45 | | | | | dose (after last modification) on | | AM PDT | | | | | 04/11/20 at 0900, Discharge | | | | | | | Readmit | | | | | | + +-------+ +-------+---+---+ +-------+ +-------+---+---+ | Given | 04/22/20 | 75 mg | | | | | 20 8:00 | | | | | | AM PDT | | | | +-------+ +-------+---+---+ | Given | 04/21/20 | 75 mg | | | | | 20 9:41 | | | | | | AM PDT | | | | +-------+ +-------+---+---+ +---+---+ | | | +---+---+ + +-------+ +--------+---+---+ | docusate sodium (COLACE) | Given | 04/18/20 | 100 mg | | | | capsule 100 mg 100 mg, Oral, 2 | | 20 8:12 | | | | | TIMES DAILY PRN, Constipation, | | PM PDT | | | | | Starting [facility] 04/10/20 at 1850, 1st | | | | | | | line agent for constipation | | | | | | | relief., Discharge Readmit | | | | | | + +-------+ +--------+---+---+ +-------+ +--------+---+---+ | Given | 04/16/20 | 100 mg | | | | | 20 6:25 | | | | | | PM PDT | | | | +-------+ +--------+---+---+ +---+---+ | | | +---+---+ + +-------+ +-------+---+ + | enoxaparin (LOVENOX) 40 mg/0.4 | Given | 04/23/20 | 40 mg | | Abdomen- | | mL injection 40 mg 40 mg, | | 20 8:45 | | | RLQ | | Subcutaneous, EVERY 24 HOURS | | AM PDT | | | | | (Daily), First dose (after last | | | | | | | modification) on Tue04/11/20 at | | | | | | | 0900, Discharge Readmit | | | | | | + +-------+ +-------+---+ + +-------+ +-------+---+ + | Given | 04/22/20 | 40 mg | | Abdomen- | | | 20 8:03 | | | LLQ | | | AM PDT | | | | +-------+ +-------+---+ + | Given | 04/21/20 | 40 mg | | Abdomen- | | | 20 9:41 | | | RLQ | | | AM PDT | | | | +-------+ +-------+---+ + +---+---+ | | | +---+---+ + +-------+ +-------+---+---+ | escitalopram (LEXAPRO) tablet | Given | 04/23/20 | 30 mg | | | | 30 mg 30 mg, Oral, DAILY, First | | 20 8:45 | | | | | dose (after last modification) on | | AM PDT | | | | | 04/11/20 at 0900, Discharge | | | | | | | Readmit | | | | | | + +-------+ +-------+---+---+ +-------+ +-------+---+---+ | Given | 04/22/20 | 30 mg | | | | | 20 8:00 | | | | | | AM PDT | | | | +-------+ +-------+---+---+ | Given | 04/21/20 | 30 mg | | | | | 20 9:42 | | | | | | AM PDT | | | | +-------+ +-------+---+---+ + +---+ | | | + +---+ | hydrOXYzine hydrochloride | | | (ATARAX) tablet 25 mg 25 mg, | | | Oral, EVERY 8 HOURS PRN, Anxiety, | | | Starting 04/14/20 at 1346, | | | Discharge Readmit | | + +---+ | | | + +---+ + +---------+ +---------+---+ + | nicotine (NICODERM) 14 mg/24 hr | Patch | 04/23/20 | 1 patch | | Deltoid- | | 1 patch 1 patch, Transdermal, | Applied | 20 8:46 | | | Right | | DAILY, First dose (after last | | AM PDT | | | | | modification) on Tue04/11/20 at | | | | | | | 0900, Discharge Readmit | | | | | | + +---------+ +---------+---+ + + + +---------+---+ + | Patch Applied | 04/22/20 | 1 patch | | Deltoid- | | | 20 8:04 | | | Left | | | AM PDT | | | | + + +---------+---+ + | Patch Applied | 04/21/20 | 1 patch | | Deltoid- | | | 20 9:41 | | | Right | | | AM PDT | | | | + + +---------+---+ + +---+---+ | | | +---+---+ + +-------+ +-------+---+---+ | pantoprazole (PROTONIX) DR | Given | 04/23/20 | 40 mg | | | | tablet 40 mg 40 mg, Oral, DAILY | | 20 6:32 | | | | | BEFORE BREAKFAST, First dose | | AM PDT | | | | | (after last modification) on Fri | | | | | | | 04/11/20 at 0700, Do not cut or | | | | | | | crush., Indication: GERD, | | | | | | | Discharge Readmit | | | | | | + +-------+ +-------+---+---+ +-------+ +-------+---+---+ | Given | 04/22/20 | 40 mg | | | | | 20 6:43 | | | | | | AM PDT | | | | +-------+ +-------+---+---+ | Given | 04/21/20 | 40 mg | | | | | 20 6:23 | | | | | | AM PDT | | | | +-------+ +-------+---+---+ +---+---+ | | | +---+---+ + +-------+ +------+---+---+ | prazosin (MINIPRESS) capsule 3 | Given | 04/22/20 | 3 mg | | | | mg 3 mg, Oral, NIGHTLY, First | | 20 9:08 | | | | | dose (after last modification) on | | PM PDT | | | | | 04/22/20 at 2100, Discharge | | | | | | | Readmit | | | | | | + +-------+ +------+---+---+ +---+---+ | | | +---+---+ + +-------+ +------+---+---+ | prazosin (MINIPRESS) capsule 5 | Given | 04/21/20 | 5 mg | | | | mg 5 mg, Oral, NIGHTLY, First | | 20 9:08 | | | | | dose (after last modification) on | | PM PDT | | | | | [facility] 04/10/20 at 2100, Discharge | | | | | | | Readmit | | | | | | + +-------+ +------+---+---+ +-------+ +------+---+---+ | Given | 04/20/20 | 5 mg | | | | | 20 8:02 | | | | | | PM PDT | | | | +-------+ +------+---+---+ | Given | 04/19/20 | 5 mg | | | | | 20 8:34 | | | | | | PM PDT | | | | +-------+ +------+---+---+ +---+---+ | | | +---+---+ + +-------+ +--------+---+---+ | senna (SENOKOT) tablet 8.6 mg | Given | 04/16/20 | 8.6 mg | | | | 8.6 mg, Oral, 2 TIMES DAILY PRN, | | 20 6:25 | | | | | Constipation, Starting [place] | | PM PDT | | | | | 04/10/20 at 1850, If docusate | | | | | | | ineffective or not ordered, give | | | | | | | BID until BM, then PRN. Hold for | | | | | | | loose stools, Discharge Readmit | | | | | | + +-------+ +--------+---+---+ +---+---+ | | | +---+---+ documented in this encounter
--- OUTSIDE RECORDS SUMMARY | ~2020-07-27 | XMS | Encounter Summary ---
Demographics + + + | Address | [address] | | | [place] [address] | + + + | Home Phone | | + + + | Preferred Language | Unknown | + + + | Marital Status | | + + + | Tenriism Affiliation | 1013 | + + + | Race | White | + + + | Ethnic Group | Not or | + + + Author + + + | Author | [facility] | | | and [place] | + + + | Organization | [facility] | | | [...] Mandeep Pollack | ECON | [place] [address] | | + + + + + Care Team Providers + +------+ + | Care Quarry Plant Crusher Operator Name | Role | Phone | + +------+ + | Latasha Barnard | PCP | | + +------+ + Reason for Visit + +--------+ + | Reason | Onset | Comments | | | Date | | + +--------+ + | Appointment | 07/14/ | | | | 2020 | | + +--------+ + Encounter Details +--------+ + + + + | Date | Type | Department | Care Team | Description | +--------+ + + + + | 07/14/ | Telephone | [facility] [place] | Lenora Delgado, | Appointment | | 2019 | | [facility] | Speech Pathologist | | | | | [address] | | | | | | [place] | | | | | | [address] | | | | | | [phone] | | | +--------+ + + + [...] + + documented as of this encounter Miscellaneous Notes Telephone Encounter - Manuela Huffman - 07/14/2020 4:42 PM PDTAppts up to Jul 29 c ancelled due to patient's testing positive for COVID. Patient under 2 week monitoring documented in this encounter Plan of Treatment +--------+---------+ + + + | Date | Type | Specialty | Care Team | Description | +--------+---------+ + + + | 07/29/ | Office | Rehabilitation | Lenora Delgado, | | | 2019 | Visit | | Speech Pathologist | | +--------+---------+ + + + | 08/05/ | Office | Rehabilitation | Lenora Delgado, | | 2019 | Visit | | Speech Pathologist | | +--------+---------+ + + + | 08/07/ | Office | Rehabilitation | Lenora Delgado, | | 2019 | Visit | | Speech Pathologist | | +--------+---------+ + + + documented as of this encounter Visit Diagnoses Not on filedocumented in this encounter"
--- OUTSIDE RECORDS SUMMARY | ~2020-07-27 | XMS | Encounter Summary ---
Demographics + + + | Address | [address] | | | [place] [address] | + + + | Home Phone | | + + + | Preferred Language | Unknown | + + + | Marital Status | | + + + | Pentecostalism Affiliation | 1013 | + + + | Race | White | + + + | Ethnic Group | Not or | + + + Author + + + | Author | [facility] | | | and [place] | + + + | Organization | [facility] | | | and [place] | + + + | Address | Unknown | + + + | Phone | Unavailable | + + + Support + + + + + | Name | Relationship | Address | Phone | + + + + + | Susie Pollakc | ECON | Unknown | | + + + + + | Mandeep Pollack | ECON | [place] [address] | | + + + + + Care Team Providers + +------+ + | Care Restaurant Hospitality Manager Name | Role | Phone | + +------+ + | Latasha Barnard | PCP | | + +------+ + Reason for Visit + + + | Reason | Comments | + + + | Initial Assessment | | + + + Evaluate & Treat (Routine) + +--------+ + + + + | Status | Reason | Specialty | Diagnoses / | Referred By | Referred To | | | | | Procedures | Contact | Contact | + +--------+ + + + + | Authorized | | Rehabilitatio | Diagnoses | Evon, | [facility] | | | | n | Cerebral | Latasha, QUAD STAYER | [place] | | | | | infarction, | [address] | Therapy [address] | | | | | unspecified | [place] | [address] | | | | | (HCC) [address] | [address] | [place], | | | | | Procedures | [facility] [place] | [place] [address] | | | | | SECRETARY BOOK KEEPER | [address] | Phone: | | | | | | Phone: | [phone] | | | | | | [phone] | Fax: | | | | | | Fax: | [phone] | | | | | | [phone] | | + +--------+ + + + + Encounter Details +--------+---------+ + + + | Date | Type | Department | Care Team | Description | +--------+---------+ + + + | 07/10/ | Office | [facility] [place] | Lenora Delgado, | Ischemic | | 2020 | Visit | [facility] | Speech Pathologist | cerebrovascular | | | | [address] | | accident (CVA) (HCC) | | | | [place] | | (Primary Dx); | | | | [address] | | Dysphagia, oral | | | | [phone] | | phase | +--------+---------+ + + + Social History + + [...] documented as of this encounter Progress Notes Lenora Delgado, Speech Pathologist - 07/10/2020 3:00 PM PDTFormatting of this note migh t be different from the original. [facility] [address] [place] [address] Speech Therapy Initial Assessment Date: 07/10/2020 Patient Information Patient Name: Efren Pollack Date of : 1965 Age: 55 y.o. History Problem Dysphagia, Oral Phase Mechanism of injury: Right posterior cerebral artery distribution infarct involving right o ccipital lobe, posterior medial right temporal lobe, posterior right corpus callosum, and po sterior right thalamus in 03/2020 History of symptoms: Patient reports impaired sensation on left side of face/body since CVA with ability to complete most mastication on the right side, but notes difficulty with mast ication on left and intermittent slurred speech when tiers, fatigued, excited, or stressed Previous level of function and limitations: independent prior to CVA, PTSD Work status:Off work Living situation: Lives with Social History Socioeconomic History Marital status: Spouse name: Not on file Number of children: Not on file Years of education: Not on file Highest education level: Not on file Tobacco Use Smoking status: Current Every Day Smoker Types: Cigarettes Smokeless tobacco: Never Used Substance and Sexual Activity Alcohol use: Not Currently Drug use: Yes Types: Marijuana Encounter Diagnoses Code Name Primary? I63.9 Ischemic cerebrovascular accident (CVA) ([facility]) Yes R13.11 Dysphagia, oral phase Date of Onset: 07/10/2020 Referring Provider: KORY Galarza No history on file. Past Medical History: Diagnosis Date Hypertension History reviewed. No pertinent surgical history. History reviewed. No pertinent family history. Developmental History No Known Allergies Prior Treatment: Hospital rehab unit - within the last sixty days and Outpatient rehab clin ic - within the last sixty days Rehab Precautions [facility] Rehab Precautions Precautions Cognitive impairment, Aspiration, Vision impairment Learning Style Patient's Optimum Learning Style: listening, performance of task Abuse Assessment Do you feel safe in your current relationship or home?: Yes Pain Assessment: Pain Scale Used: NUMERIC Pain Rating Pre Assessment: 6 Location: Left shoulder/arm and leg Subjective: History of Presenting Problem: Efren is a 55 y.o. male who presents to therap y status post right CONE RUNNER CVA with complaint of excess saliva production, facial paralysis imp acting speech and swallowing. Functional Limitations: vision impairment, cognitive impairment; memory Precaution/special problems: PTSD Patient s Goals: retrain facial muscles Objective: Oral Motor Evaluation: CN V sensory impaired sensation on left on forehead, cheek, and Jaw; does have sensation bu t decreased. CN VII motor decreased retraction on left with smiles, decreased labial seal with lips. Reports taste intact. Patient reports excess salivary production, and xerostomia at the same time. With further e valuation and discussion I think pt has pooling of secretions on left secondary to decreased sensation. Patient has habit on constantly licking lips that is new behavior s/p CVA. Oral phase swallow characterized by mastication on right, with avoidance of placement on ben ilir on left due to "loosing it" or biting tongue. Impaired ability to locate bolus in oral c avity on left increasing risk of aspiration. Decreased labial seal on left, with no labial e scape secondary to avoidance of bolus on left. Pharyngeal phase swallow appears intact. Voice: occasional intermittent glottal alvarado Expressive language: speech is 100% intelligible in conversation with rare speech sound err ors to a trained listener Cognitive aspects of Language: patient has cognitive impairment mostly impacting memory s/p CVA, no interested in addressing this at this time. Able to follow directions and answer qu estions about his own care and wishes with no difficulty. Swallow Function: Administered Vanegas Assessment of Swallowing Ability (MASA), scoring 176/200 indicating mil d dysphagia. Assessment Patient presents to speech therapy with complaints of left sided facial paralysis s/p CONE RUNNER infarct with decreased sensation and motor function impacting speech and swallowing. Object ashish exam reveals impairments with cranial nerve V sensory, and CN VII motor impacting oral p hase of swallow and motor speech. These impairments and diagnosis are causing functional phillips itations with patient s inability to masticate food on the left side and maintain awarenes s of bolus in the oral cavity, increasing risk of aspiration. Minimal impact on motor speech with most symptoms of dysarthria occurring when excited or tierd affecting participation in conversation and successful communication. Signs and symptoms are consistent with right haylie ed CONE RUNNER CVA. Complexities contributing to frequency and duration of therapy: comorbidities. Rehabilitation potential: Patient demonstrates good potential to achieve established goals to address the documented impairments by participating in skilled speech and language therap y services. Goals: Additional SECRETARY BOOK KEEPER Goals OP SECRETARY BOOK KEEPER Goals: Goal 1 Goal 1: Patient will demonstrate improved recruitment of CN VII and oropharyngeal sling fun ction with improved bolus control and decreased pocketing/residuals with dysphagia advanced textures, with less than 10% of bolus present in oral cavity after the swallow. Goal 1 Status: New Plan Date of Onset: 07/10/2020 Start of Care Date: 07/10/2020 Requested # of Visits: 18 visits 2x/week for 2x week for 60 days Certification From: 07/10/2020 Certification To: 09/09/2020 Treatment Plan/Interventions [id number] - Swallow [id number] - Treatment of Swallowing [id number] - Speech/Hearing Therapy - [id number] - Evaluation of Speech Production Swallowing therapy to include neuromuscular electrical stimulation (NMES) swallow treatme nt to decrease risk of aspiration. 80pps, dual channel, dual intensity up to 25 mAmp peak cu rrent output to facilitate recruitment of CN VII and oropharyngeal sling to target improved swallow function and decrease aspiration risk. Four adult electrodes to be used per visit. Patient and/or family has indicated understanding of treatment needs and actively participa singh in the creation of this plan for care. Today's Treatment Start Time: 1502 Stop time: 1557 Duration: 55 minutes Timed Treatment Codes: 0 minutes # of Speech Visits to Date: 1 Objective: Education provided on basic anatomy and physiology of swallow function, with edu cation on current oral dysphagia impairments and risk for aspiration. Discussed rehabilitati on options to treat oral dysphagia. Next Visit: Initiated NMES facial placement to improve recruitment of CN VII and oropharyng eal sling to improve oral phase of the swallow Electronically signed by: Lenora Delgado Speech Pathologist, 07/11/2020 5:47 PM [facility] Patient Name: Efren Bondswen/: 1965/ [facility] umented in this encounter Plan of Treatment +--------+---------+ [...] | +--------+---------+ + + + | 08/07/ Office | Rehabilitation | Lenora Delgado, | | | 2019 | Visit | | Speech Pathologist | | +--------+---------+ + + + documented as of this encounter Visit Diagnoses + + | Diagnosis | + + | Ischemic cerebrovascular accident (CVA) ([facility]) - Primary | + + | Dysphagia, oral phase | + + documented in this encounter
--- OUTSIDE RECORDS SUMMARY | ~2020-07-27 | XMS | Encounter Summary ---
Demographics + + + | Address | [address] | | | [place] [address] | + + + | Home Phone | | + + + | Preferred Language | Unknown | + + + | Marital Status | | + + + | Presybeterian Affiliation | 1013 | + + + | Race | White | + + + | Ethnic Group | Not or | + + + Author + + + | Author | [facility] | | | and [place] | + + + | Organization | [facility] | | | and [...] Mandeep Pollack | ECON | [place] [address] | | + + + + + Care Team Providers + +------+ + | Care Power Sewing Machine Operator Name | Role | Phone | + +------+ + | Latasha Barnard | PCP | | + +------+ + Reason for Visit + +--------+ + | Reason | Onset | Comments | | | Date | | + +--------+ + | Referral | 04/08/ | | | | 2020 | | + +--------+ + Encounter Details +--------+ + + + + | Date | Type | Department | Care Team | Description | +--------+ + + + + | 04/08/ | Telephone | [facility] | Joshua Cat MD 1100 | Referral | | 2020 | | NEUROLOGY [address] | [facility] | | | | | [address] | [address], | | | | | [place], [place] | [place] [address] | | | | | [id number] | [phone] | | | | | [phone] | | | +--------+ + + + [...] this encounter Miscellaneous Notes Telephone Encounter - Eileen Stearns - 04/08/2020 3:08 PM PDTRouted message to referring office with Dr. Cat's recommendation on scheduling. elephone Encounter - Sue Flores - 04/08/2020 11:23 AM [facility], is calling regarding Referral and would like a call back. Additional Call Details: Stated she had sent an Urgent Referral. Would like us to schedule with patient from new referral. Please call Efren back at [phone]. Jeannette would like a ca ll with date and time of appointment when scheduled. Call her at [phone] If this is a symptom based call, was patient offered triage? Not Applicable If this is a symptom based call and you were unable to immediately transfer the call to a jair malik dish machine operator was caller made aware that if at any time he feels it is an emergency they donn uld call 911 or go to the nearest emergency room? not applicable documented in this encounter Plan of Treatment [...]
[~2020-07-27 12:30] MED LIST changes: +ALPRAZOLAM0.5 MG PO; -HYDROXYZINE HCL25 MG PO; +HYDROXYZINE PA100 MG PO; +MELATONIN10 MG PO; +MINIPRESS5 MG PO
--- OUTSIDE RECORDS SUMMARY | 2020-07-27 12:32 | XMS ---
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 Bk has no Care Guidelines for this patient. Remigio VISIT COUNT (12 MO.) 3 ELLE [facility] TOTAL 3 NOTE: Visits indicate total known visits. ED/C VISIT TRACKING (12 MO.) 07/27/2020 12:31 [facility] [place] TYPE: Emergency COMPLAINT: - POSSIBLE STROKE 03/19/2020 12:19 [facility] [place] TYPE: Emergency COMPLAINT: - LEFT SIDE NUMBNESS DIAGNOSES: - Essential (primary) hypertension - Paresthesia of skin - Nicotine dependence, unspecified, uncomplicated - Other fdc (current) drug therapy - Polyneuropathy, unspecified - Anesthesia of skin 09/12/2019 18:59 [facility] [place] TYPE: Emergency COMPLAINT: - POSS HIGH PB DIAGNOSES: - Nicotine dependence, unspecified, uncomplicated - Other meterman (current) drug therapy - Allergy status to other drugs, medicaments and biological sub - Essential (primary) hypertension - Noninfective gastroenteritis and colitis, unspecified - Dizziness and giddiness - Post-traumatic stress disorder, unspecified INPATIENT VISIT TRACKING (12 MO.) No inpatient visits to display in this time frame [id number]
[2020-07-27] MEDS ORDERED: ATORVASTATIN CA80 MG PO (12:59)
[2020-07-27] MEDS ORDERED: OLANZAPINE5 MG PO (12:59)
[2020-07-27] MEDS ORDERED: BUSPIRONE HCL15 MG PO (13:01)
[2020-07-27] MEDS ORDERED: CIPRODEX OTIC7.5 ML OS (13:01)
[2020-07-27] MEDS ORDERED: KLONOPIN1 MG PO (16:55)
[2020-07-27] MEDS ORDERED: CATAPRES0.1 MG PO (16:56)
--- NOTE | 2020-07-27 19:40 | NUR ---
REPORT RECEIVED FROM DAY SHIFT RN. PT REQUESTED NOT TO BE DISTURBED AT THIS TIME. REPORT DONE IN HALLWAY. TELE #[address] SINUS SUSAN. HR 53.
--- NOTE | 2020-07-27 21:30 | NUR ---
EVENING ASSESSMENT COMPLETE. PT DENIES PAIN OR NAUSEA. LEFT SIDE WEAKNESS NOTED THAT PT STATES IS BASELINE. NO OTHER DEFICITS NOTED. TELE #[address] SINUS SUSAN WITH HR IN THE LOW 50'S. VSS. SCHEDULED MEDS ADMINISTERED PER EMAR. NO SWALLOWING ISSUES NOTED. FRESH WATER PROVIDED. PT DENIES QUESTIONS OR CONCERNS. WHITE BOARD UPDATED. CALL LIGHT IN REACH.
--- NOTE | 2020-07-27 21:35 | NUR ---
WENT IN TO THE ROOM TO CHECK THE TELE.. PATIENT C/O COLD AND ASKED FOR WARM BLANKET. PROVIDED.
--- NOTE | 2020-07-28 00:25 | NUR ---
PATIENT HAD A LOOSE BOWEL MOVEMENT. WIPED/CLEANED AND CHANGED PULL UPS, SOCKS AND GOWN. WIPED/CLEANED FLOOR WITH DISINFECTANT. PATIENT IS BACK IN BED. CALL LIGHT IN REACH. BED ALARM ON FOR SAFETY.
--- NOTE | 2020-07-28 00:44 | NUR ---
CALL LIGHT ANSWERED. PT STANDING AT SOB. INCOTINENT OF LARGE AMOUNT OF LIQUID STOOL AND URINE. SBA TO BR. ASSISTED WITH ANA CARE. CLEAN LINENS, GOWN, AND BRIEF PROVIDED. BACK TO BED, CAROL WELL. PT DENIES PAIN OR NAUSEA. NO NEW NEURO DEFICITS NOTED. PT AGAIN ENCOURAGED TO USE CALL LIGHT FOR ASSISTANCE. BED ALARM PLACED FOR SAFETY.
--- NOTE | 2020-07-28 02:04 | NUR ---
VSS. PT DENIES PAIN OR NAUSEA. NO NEURO DEFICITS NOTED ASIDE FROM BASELINE LEFT SIDE WEAKNESS. TELE #1 SINUS SUSAN. HR MID 50'S. NO NEEDS AT THIS TIME. BED ALARM ON.
--- NOTE | 2020-07-28 06:12 | NUR ---
ASSESSMENT COMPLETE. PT DENIES PAIN OR NAUSEA. NO NEW NEURO DEFICITS NOTED. TELE #1, HR 50'S. VSS. FRESH LIQUIDS PROVIDED. PT DENIES FURTHER NEEDS. BED ALARM FOR SAFETY. CALL LIGHT IN REACH.
--- NOTE | 2020-07-28 08:00 | NUR ---
REPROT RECEIVED. PT OFF TO IMAGING AND BACK. ASSISTED TO CHAIR FOR BREAKFAST. PT IS STANG BY WITH NO ASSSISTANCE NEEDED. CALL LIGHT IN REACH.
--- NOTE | 2020-07-28 09:15 | NUR ---
PT OUT AMBULATING HALLS WITH [id number] THERAPY.
--- NOTE | 2020-07-28 09:47 | NUR ---
PATIENT MOVED FROM CHAIR TO BED. NOW RESTING. CALL LIGHT WITHIN REACH. NO FURTHER NEEDS AT THIS TIME.
[2020-07-28] MEDS ORDERED: ASPIRIN81 MG PO (12:24)
--- NOTE | 2020-07-28 12:30 | NUR ---
PT ASSISTED UP TO CHAIR. DR IN TO ROUND AND DISCUSS DISCHARGE PLAN. QUESTIONS ANSWERED. CALL LIGHT IN REACH.
--- NOTE | 2020-07-28 12:45 | NUR ---
PATIENT UP IN CHAIR EATING LUNCH. PATIENT STATES HE LIVES WITH . IS DISABLED. DOES NOT DRIVE, ABLE TO TAKE TO APPOINTMENTS. PATIENT DENIES PROBLEMS AFFORDING FOOD AND UTILITIES, STATES HIS MEDS GO THROUGH [place] AND THEY WORK ON WHAT IS AFFORDABLE. HE USES NO AMBULATORY DEVICES. HE HAS BEEN UP IN OUR HALLS AND FEELS HE IS BASELINE FOR AMBULATION. HE HAS A CPAP AND NEBULIZER AT HOME. HE PLANS TO DISCHARGE HOME AND FEELS SAFE TO DO SO. CM WILL FOLLOW NEEDED.
--- NOTE | 2020-07-28 13:21 | NUR ---
PT RESTING IN BED, AWAKENS TO THE SOUND OF MY VOICE. PT STATES HE HAS A REALLY BAD HEADACHE, HAD ONE PREVIOUS. GAVE BLESSING, TOLD PT I WOULD LET HIM REST AND CHECK BACK AGAIN. HE THANKED ME
--- NOTE | 2020-07-28 13:32 | NUR ---
PATIENTS LAST SET OF VITALS OBTAINED. WAITING TO TALK TO DR GARCIA TO LEAVE. IN ROOM. CALL LIGHT WIOTHIN REACH. NO FURTHER NEEDS AT THIS TIME.
== END 2020-07-28 14:04 | disposition home or self-care (01) ==
LOC: ED 12:30 → MS 12:32
PROVIDERS: ADMIT Student in an Organized Health Care Education/Training Program; ATTEND Student in an Organized Health Care Education/Training Program
DX: F43.10 Post-traumatic stress disorder, unspecified (principal); F17.210 Nicotine dependence, cigarettes, uncomplicated; Z79.899 Other long term (current) drug therapy
CPT/HCPCS: 70450; 70496; 70498; 70551; 80053; 84484; 85025; 97162; 97166; 99285-25; C9803; G0378; J1170; Q9967; U0003

== ENCOUNTER 2020-10-28 11:37 | Emergency (ER) | payer SELFPAY ==
[~2020-10-28] VITALS: Ht 175.3 cm; Wt 94.3 kg
[~2020-10-28 11:37] MED LIST changes: +ASPIRIN81 MG PO; +ATORVASTATIN CA80 MG PO; +BUSPIRONE HCL15 MG PO; +CATAPRES0.1 MG PO; +CIPRODEX OTIC7.5 ML OS; +KLONOPIN1 MG PO; +OLANZAPINE5 MG PO
--- OUTSIDE RECORDS SUMMARY | 2020-10-28 11:40 | XMS ---
PreManage Notification: LUCILLE PATEL Security [employer] Set Up Technician Events No recent Security Events currently on file CRITERIA MET - [facility] CARE PROVIDERS ROMI BRUCE Nurse Practitioner 07/28/2020-Current PHONE: [phone] Bk has no Care Guidelines for this patient. Care History Medical/Surgical 07/28/2020 [facility] \T\middot;\T\nbsp; PATIENT IS A -RECEIVES SERVICES THROUGH [place]. \T\middot;\T\nbsp; Location: [address], [place] [address]- E.D. VISIT COUNT (12 MO.) 3 [facility] TOTAL 3 NOTE: Visits indicate total known visits. ED/UCC VISIT TRACKING (12 MO.) 10/28/2020 11:38 [facility] [place] TYPE: Emergency COMPLAINT: - POST SEIZURE FALL 07/27/2020 12:31 [facility] [place] TYPE: Emergency COMPLAINT: - POSSIBLE STROKE 03/19/2020 12:19 [facility] [place] TYPE: Emergency COMPLAINT: - LEFT SIDE NUMBNESS DIAGNOSES: - Essential (primary) hypertension - Paresthesia of skin - Nicotine dependence, unspecified, uncomplicated - Other senior care (current) drug therapy - Polyneuropathy, unspecified - Anesthesia of skin INPATIENT VISIT TRACKING (12 MO.) 07/27/2020 12:32 [facility] [place] TYPE: Observation COMPLAINT: - CVA DIAGNOSES: - Contact with and (suspected) exposure to other viral communicable diseases - Nicotine dependence, cigarettes, uncomplicated - Post-traumatic stress disorder, unspecified - Other roasterman (current) drug therapy - Headache - Syncope and collapse [email or web address]
[2020-10-28] MEDS ORDERED: ULTRAM50 MG PO (12:09)
[2020-10-28] MEDS ORDERED: TYLENOL EXTRA500 MG PO (12:11)
[2020-10-28] MEDS ORDERED: VOLTAREN100 GM TOP (12:12)
[2020-10-28] MEDS ORDERED: NORCO 5-325 TA1 EACH PO (14:31)
--- NOTE | 2020-10-29 18:29 | EKG ---
[facility] [address] [place], [place] [address] Signed Sinus bradycardia Otherwise normal ECG When compared with ECG of 19-MAR-2020 12:23, No significant change was found Confirmed by ISAIAH CONNER MD ([id number]) on 10/29/2020 6:29:30 PM Electronically Signed By: ISAIAH CONNER MD 10/29/20 1829 PATIENT NAME: LUCILLE PATEL MIKI Electrocardiogram DATE OF : 65 PHYSICIAN: ISAIAH CONNER MD REPORT #: [id number] REPORT IS CONFIDENTIAL AND NOT TO BE RELEASED WITHOUT AUTHORIZATION
== END 2020-10-28 14:52 | disposition home or self-care (01) ==
LOC: ED 11:37
DX: R56.9 Unspecified convulsions (principal); M25.512 Pain in left shoulder; I10 Essential (primary) hypertension; F43.10 Post-traumatic stress disorder, unspecified; Z86.73 Personal history of transient ischemic attack (TIA), and cerebral infarction without residual deficits; F17.200 Nicotine dependence, unspecified, uncomplicated; Z79.82 Long term (current) use of aspirin; Z79.899 Other long term (current) drug therapy; Z79.891 Long term (current) use of opiate analgesic
CPT/HCPCS: 71046; 73030; 80053; 81001; 83735; 84484; 85025; 93005; 93010; 96374; 99285-25; G0480; J2270; J7030

== ENCOUNTER 2021-01-08 07:28 | Emergency (ER) | payer OTHER ==
[~2021-01-08] VITALS: Ht 175.3 cm; Wt 94.8 kg
[~2021-01-08 07:28] MED LIST changes: +NORCO 5-325 TA1 EACH PO; +TYLENOL EXTRA500 MG PO; +ULTRAM50 MG PO; +VOLTAREN100 GM TOP
--- OUTSIDE RECORDS SUMMARY | 2021-01-08 07:34 | XMS ---
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 Care History Medical/Surgical 07/28/2020 [facility] \T\middot;\T\nbsp; PATIENT IS A -RECEIVES SERVICES THROUGH [facility] [place]. \T\middot;\T\nbsp; Location: [address], [place] [address]- E.D. VISIT COUNT (12 MO.) 1 [facility] 5 [facility] TOTAL 6 NOTE: Visits indicate total known visits. ED/UCC VISIT TRACKING (12 MO.) 01/08/2021 07:29 [facility] [place] TYPE: Emergency COMPLAINT: - MEDICAL CLEARANCE 12/29/2020 13:01 [facility] [place] TYPE: Emergency COMPLAINT: - MEDICAL CLEARANCE DIAGNOSES: - Unspecified psychosis not due to a substance or known physiological condition - Personal history of transient ischemic attack (TIA), and cerebral infarction without residual deficits - Nicotine dependence, unspecified, uncomplicated - Post-traumatic stress disorder, unspecified - Post-traumatic stress disorder, unspecified - Essential (primary) hypertension - [facility] (current) use of aspirin - Other custodial (current) drug therapy - Unspecified psychosis not due to a substance or known physiological condition 10/28/2020 11:38 [facility] TYPE: Emergency COMPLAINT: - POST SEIZURE FALL DIAGNOSES: - Personal history of transient ischemic attack (TIA), and cerebral infarction without residual deficits - Unspecified convulsions - Nicotine dependence, unspecified, uncomplicated - [facility] (current) use of opiate analgesic - Post-traumatic stress disorder, unspecified - Essential (primary) hypertension - Pain in left shoulder - Other custodial (current) drug therapy - [facility] (current) use of aspirin 07/27/2020 12:31 [facility] TYPE: Emergency COMPLAINT: - POSSIBLE STROKE [facility]2020 [facility] DIAGNOSES: - poss brain bleed - Cerebral infarction, unspecified - Headache (Adult - New Onset Or New Symptoms) 03/19/2020 12:19 [facility] [place] TYPE: Emergency COMPLAINT: - LEFT SIDE NUMBNESS DIAGNOSES: - Essential (primary) hypertension - Paresthesia of skin - Nicotine dependence, unspecified, uncomplicated - Other intermodal dispatcher (current) drug therapy - Polyneuropathy, unspecified - Anesthesia of skin INPATIENT VISIT TRACKING (12 MO.) 07/27/2020 12:32 [facility] TYPE: Observation COMPLAINT: - CVA DIAGNOSES: - Contact with and (suspected) exposure to other viral communicable diseases - Nicotine dependence, cigarettes, uncomplicated - Post-traumatic stress disorder, unspecified - Other intermodal dispatcher (current) drug therapy - Headache - Syncope and collapse 04/10/2020 18:44 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 [facility] TYPE: Surgical Services DIAGNOSES: - Cerebral infarction, unspecified [email or web address]
[2021-01-08] MEDS ORDERED: ZYPREXA5 MG PO (07:46)
[2021-01-08] MEDS ORDERED: ZYPREXA10 MG PO (07:46)
== END 2021-01-08 14:17 | disposition home or self-care (01) ==
LOC: ED 07:28
DX: F43.10 Post-traumatic stress disorder, unspecified (principal); I10 Essential (primary) hypertension; Z86.73 Personal history of transient ischemic attack (TIA), and cerebral infarction without residual deficits; F17.200 Nicotine dependence, unspecified, uncomplicated; Z79.899 Other long term (current) drug therapy; Z79.891 Long term (current) use of opiate analgesic; Z20.822 Contact with and (suspected) exposure to COVID-19
CPT/HCPCS: 80053; 80176; 81001; 84443; 85025; 99283; C9803; U0003

== ENCOUNTER 2021-09-04 14:07 | Emergency (ER) | payer OTHER ==
[~2021-09-04] VITALS: Ht 175.3 cm; Wt 100.7 kg
[~2021-09-04 14:07] MED LIST changes: +ZYPREXA10 MG PO; +ZYPREXA5 MG PO
--- OUTSIDE RECORDS SUMMARY | 2021-09-04 14:34 | XMS ---
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 Care History Medical/Surgical 07/28/2020 [facility] \T\middot;\T\nbsp; PATIENT IS A -RECEIVES SERVICES THROUGH [place] \T\middot;\T\nbsp; Location: [address], [place] [address]- E.D. VISIT COUNT (12 MO.) 4 [facility] TOTAL 4 NOTE: Visits indicate total known visits. ED/UCC VISIT TRACKING (12 MO.) 09/04/2021 14:08 [facility] [place] TYPE: Emergency COMPLAINT: - COLD SYMPTOMS 01/08/2021 07:29 [facility] [place] TYPE: Emergency COMPLAINT: - MEDICAL CLEARANCE DIAGNOSES: - Nicotine dependence, unspecified, uncomplicated - Post-traumatic stress disorder, unspecified - termination clerk (current) use of opiate analgesic - Essential (primary) hypertension - Other predatory animal exterminator (current) drug therapy - Personal history of transient ischemic attack (TIA), and cerebral infarction without residual deficits 12/29/2020 13:01 [facility] [place] TYPE: Emergency COMPLAINT: - MEDICAL CLEARANCE DIAGNOSES: - Unspecified psychosis not due to a substance or known physiological condition - Personal history of transient ischemic attack (TIA), and cerebral infarction without residual deficits - Nicotine dependence, unspecified, uncomplicated - Post-traumatic stress disorder, unspecified - Post-traumatic stress disorder, unspecified - Essential (primary) hypertension - termination clerk (current) use of aspirin - Other predatory animal exterminator (current) drug therapy - Unspecified psychosis not due to a substance or known physiological condition 10/28/2020 11:38 [facility] [place] TYPE: Emergency COMPLAINT: - POST SEIZURE FALL DIAGNOSES: - Personal history of transient ischemic attack (TIA), and cerebral infarction without residual deficits - Unspecified convulsions - Nicotine dependence, unspecified, uncomplicated - termination clerk (current) use of opiate analgesic - Post-traumatic stress disorder, unspecified - Essential (primary) hypertension - Pain in left shoulder - Other predatory animal exterminator (current) drug therapy - termination clerk (current) use of aspirin INPATIENT VISIT TRACKING (12 MO.) No inpatient visits to display in this time frame [email or web address]
[2021-09-04] MEDS ORDERED: EPIN0.3P (15:12)
== END 2021-09-04 19:14 | disposition home or self-care (01) ==
LOC: ED 14:07
DX: B34.9 Viral infection, unspecified (principal); I10 Essential (primary) hypertension; F17.200 Nicotine dependence, unspecified, uncomplicated; Z86.73 Personal history of transient ischemic attack (TIA), and cerebral infarction without residual deficits; Z20.822 Contact with and (suspected) exposure to COVID-19; Z91.018 Allergy to other foods; Z79.82 Long term (current) use of aspirin; Z79.899 Other long term (current) drug therapy
CPT/HCPCS: 71045; 80053; 85025; 99285-25; C9803; U0003

== ENCOUNTER → 2022-01-19 | Emergency (ER) | payer OTHER ==
[~2022-01-19] VITALS: Ht 175.3 cm; Wt 104.8 kg
[~2022-01-19] MED LIST changes: +EPIN0.3P
== END ==
LOC: ED 16:06
DX: S01.411A Laceration without foreign body of right cheek and temporomandibular area, initial encounter (principal); I10 Essential (primary) hypertension; Z86.73 Personal history of transient ischemic attack (TIA), and cerebral infarction without residual deficits; F17.200 Nicotine dependence, unspecified, uncomplicated; Z91.018 Allergy to other foods; Z79.82 Long term (current) use of aspirin; Z79.899 Other long term (current) drug therapy; W22.8XXA Striking against or struck by other objects, initial encounter
CPT/HCPCS: 12013; 90471; 90715; 99282-25

== ENCOUNTER 2022-07-24 20:53 | Emergency (ER) | payer OTHER ==
[~2022-07-24] VITALS: Ht 175.3 cm; Wt 92.4 kg
[2022-07-24] MEDS ORDERED: KLONOPIN0.5 MG PO (22:30)
== END 2022-07-24 22:43 | disposition home or self-care (01) ==
LOC: ED 20:53
DX: F43.10 Post-traumatic stress disorder, unspecified (principal); F41.9 Anxiety disorder, unspecified; I10 Essential (primary) hypertension; Z86.73 Personal history of transient ischemic attack (TIA), and cerebral infarction without residual deficits; F17.200 Nicotine dependence, unspecified, uncomplicated; Z91.018 Allergy to other foods; Z79.82 Long term (current) use of aspirin; Z79.899 Other long term (current) drug therapy
CPT/HCPCS: 99283

== ENCOUNTER 2024-11-11 10:27 | Inpatient (IN) | payer OTHER ==
[~2024-11-11] VITALS: Ht 175.3 cm; Wt 75.7 kg
[~2024-11-11 10:27] MED LIST changes: +KLONOPIN0.5 MG PO
[2024-11-11] MEDS ORDERED: CEFTRIAXONE/SODIUM CHLORIDE 2 GM/100 ML PIGGYBACK IV ONE (10:45)
[2024-11-11] MEDS ORDERED: SODIUM CHLORIDE 0.9% 1,000 ML IV PRN (10:45)
[2024-11-11 10:53] LABS: BASOPHILS 0.4 % (0-2); EOSINOPHILS 0.1 % (0-6); HEMATOCRIT 43.9 % (35.0-50.0); HEMOGLOBIN 15.5 g/dL (12.0-18.0); LYMPHOCYTES 14.6 % (24-44); MCH 38.9 (27-36); MCHC 35.2 g/dl (30-36); MCV 110.4 fl (81-99); MONOCYTES 7.6 % (0-12); NEUTROPHILS 77.3 % (39-80); PLATELET COUNT 103 K/uL (140-440); RBC 3.98 M/ul (4.3-5.7)
[2024-11-11 10:58] LABS: PARTIAL THROMBOPLASTIN TIME 23.8 Sec (22.9-41.3)
[2024-11-11 10:59] LABS: INR 0.99 (0.80-1.30); PROTIME 12.4 Sec (11.2-14.2)
[2024-11-11 11:04] LABS: ALBUMIN 3.6 g/dL (3.4-5.0); ALBUMIN/GLOBULIN RATIO 0.97 (1.1-2.4); ANION GAP 26.5 (7-21); BILIRUBIN, TOTAL 2.8 ng/dL (0.2-1.0); BUN/CREATININE RATIO 9.4 (6.0-28.6); CALCIUM 9.2 mg/dL (8.5-10.1); CREATININE, SERUM 1.17 mg/dL (0.70-1.30); POTASSIUM 3.5 mmol/L (3.5-5.1); PROTEIN, TOTAL 7.3 g/dL (6.4-8.2)
[2024-11-11 11:32] LABS: INFLUENZA B NAA NEGATIVE (NEGATIVE); RESPIRATORY SYNCYTIAL VIR NAA NEGATIVE (NEGATIVE)
[2024-11-11] MEDS ORDERED: ondansetron HCL 4 MG/2 ML VIAL IV ONE ×2 (12:30→16:45)
[2024-11-11 12:39] LABS: BILIRUBIN, URINE POSITIVE (negative); BLOOD/HGB, URINE NEGATIVE (Negative); KETONE, URINE SMALL (Negative); LEUK ESTERASE, URINE NEGATIVE (negative); NITRITE, URINE NEGATIVE (negative)
[2024-11-11] MEDS ORDERED: droPERidol 5 MG/2 ML VIAL IV ONE (13:30)
[2024-11-11 13:31] LABS: ALCOHOL, MEDICAL <3 ng/dL (<3)
[2024-11-11 13:42] LABS: AMPHETAMINES, URINE NEGATIVE (NEGATIVE); BARBITURATES, URINE NEGATIVE (NEGATIVE); BENZODIAZEPINE, URINE NEGATIVE (NEGATIVE); BUPRENORPHINE, URINE NEGATIVE (NEGATIVE); CANNABINOID, URINE NEGATIVE (NEGATIVE); COCAINE, URINE NEGATIVE (NEGATIVE); ECSTASY, URINE NEGATIVE (NEGATIVE); FENTANYL, URINE NEGATIVE (NEGATIVE); METHADONE, URINE NEGATIVE (NEGATIVE); OPIATES, URINE NEGATIVE (NEGATIVE); OXYCODONE, URINE NEGATIVE (NEGATIVE); PHENCYCLIDINE, URINE NEGATIVE (NEGATIVE)
[2024-11-11] MEDS ORDERED: ACETAMINOPHEN 325 MG TAB PO PRN (18:00)
[2024-11-11] MEDS ORDERED: ondansetron HCL 4 MG/2 ML VIAL IV PRN (18:00)
[2024-11-11] MEDS ORDERED: PROCHLORPERAZINE EDISYLATE 10 MG/2 ML VIAL IV PRN (18:00)
[2024-11-11] MEDS ORDERED: LACTATED RINGER'S 1,000 ML IV SCH (18:00)
[2024-11-11] MEDS ORDERED: PANTOPRAZOLE SODIUM 40 MG/10 ML VIAL IV SCH (18:01)
[2024-11-11 18:28] LABS: PH, VENOUS 7.349 (7.31-7.41)
[2024-11-11 18:51] VITALS: BP 120/53
[2024-11-11] MEDS ORDERED: LIDOCAINE HCL 4% 1 EACH PATCH TD SCH (19:49)
[2024-11-11] MEDS ORDERED: SODIUM CHLORIDE 0.9% 1,000 ML IV SCH (20:00)
[2024-11-11] MEDS ORDERED: PRAZOSIN HCL 5 MG CAP PO SCH (21:00)
[2024-11-11] MEDS ORDERED: MELATONIN 3 MG TAB PO PRN (21:00)
[2024-11-11] MEDS ORDERED: ATORVASTATIN 40 MG TAB PO SCH (21:00)
[2024-11-11] MEDS ORDERED: LIDOCAINE PATCH REMOVAL 1 EA TD SCH (21:00)
[2024-11-11 21:01] VITALS: BP 151/67
--- NOTE | 2024-11-11 21:01 | EKG ---
[facility] [address] [place] [address] Signed Sinus tachycardia Possible Left atrial enlargement Left axis deviation Inferior infarct , age undetermined Abnormal ECG When compared with ECG of 28-OCT-2020 12:37, Vent. rate has increased BY 58 BPM Inferior infarct is now present ST now depressed in Anterior leads Confirmed by Mary Mena MD ([id number]) on 11/11/2024 9:01:15 PM Electronically Signed By: MARY MENA DO 11/11/242100 PATIENT NAME: LUCILLE PATEL Electrocardiogram DATE OF : 65 PHYSICIAN: MARY MENA DO REPORT #: [id number] REPORT IS CONFIDENTIAL AND NOT TO BE RELEASED WITHOUT AUTHORIZATION
[2024-11-11 21:44] VITALS: BP 151/67
[2024-11-12] VITALS (12 sets, daily range): BP systolic 101–138; BP diastolic 58–75
[2024-11-12 05:19] LABS: BASOPHILS 0.3 % (0-2); EOSINOPHILS 0.4 % (0-6); HEMOGLOBIN 11.9 g/dL (12.0-18.0); LYMPHOCYTES 17.8 % (24-44); MCH 38.4 (27-36); MCHC 34.9 g/dl (30-36); NEUTROPHILS 74.5 % (39-80); PLATELET COUNT 83 K/uL (140-440); RBC 3.09 M/ul (4.3-5.7); RDW 14.9 (10.5-15.0)
[2024-11-12 05:35] LABS: ALBUMIN 2.4 g/dL (3.4-5.0); ALBUMIN/GLOBULIN RATIO 0.86 (1.1-2.4); ANION GAP 19.1 (7-21); BILIRUBIN, TOTAL 1.9 ng/dL (0.2-1.0); BUN/CREATININE RATIO 6.54 (6.0-28.6); CALCIUM 8.1 mg/dL (8.5-10.1); CREATININE, SERUM 1.07 mg/dL (0.70-1.30); MAGNESIUM 1.8 mg/dL (1.8-2.4); POTASSIUM 3.1 mmol/L (3.5-5.1); PROTEIN, TOTAL 5.2 g/dL (6.4-8.2)
[2024-11-12] MEDS ORDERED: ASPIRIN 81 MG CHEW PO SCH (08:00)
[2024-11-12] MEDS ORDERED: MICONAZOLE NITRATE 1 EA BTL TOP SCH (09:00)
[2024-11-12] MEDS ORDERED: ENOXAPARIN SODIUM 40 MG/0.4 ML SYR SUB-Q SCH (09:00)
[2024-11-12] MEDS ORDERED: POTASSIUM CHLORIDE 10 MEQ TABCR PO ONE (09:30)
[2024-11-12] MEDS ORDERED: ACETAMINOPHEN 325 MG TAB PO PRN (10:00)
[2024-11-12] MEDS ORDERED: PHARMACY RENAL DOSE ADJUSTMENT 1 DOSE MISC PO SCH (12:00)
[2024-11-13 04:08] VITALS: BP 124/74
[2024-11-13 04:09] VITALS: BP 124/74
[2024-11-13] MEDS ORDERED: CYANOCOBALAMIN 1,000 MCG TAB PO SCH (09:00)
[2024-11-13 09:34] VITALS: BP 119/72
[2024-11-13 10:02] LABS: HEPATITIS A ANTIBODY, IGM Negative (Negative); HEPATITIS B CORE ANTIBODY, IGM Negative (Negative); HEPATITIS B SURFACE ANTIGEN Negative (Negative); HEPATITIS C AB CIA INTERP Negative (Negative); HEPATITIS C ANTIBODY CIA INDEX 0.15 IV (())
[2024-11-13 10:14] VITALS: BP 119/72
[2024-11-13] MEDS ORDERED: PRAZOSIN HCL5 MG PO (11:06)
[2024-11-13] MEDS ORDERED: LIPITOR40 MG PO (11:06)
[2024-11-13] MEDS ORDERED: ASPIRIN81 MG PO (11:06)
[2024-11-13] MEDS ORDERED: VITAMIN B-121000 MCG PO (11:07)
[2024-11-13] MEDS ORDERED: ONDANSETRON ODT8 MG PO (11:08)
[2024-11-13 12:59] VITALS: BP 128/81
[2024-11-14] MEDS ORDERED: PANTOPRAZOLE SODIUM 40 MG TABEC PO SCH (09:00)
[2024-11-14 11:52] LABS: IRON,SERUM OR PLASMA 143 ug/dL (45-182)
== END 2024-11-13 13:04 | disposition home or self-care (01) | DRG 392 ==
LOC: ED 10:27 → MS 18:01
PROVIDERS: Emergency Medicine; ADMIT Student in an Organized Health Care Education/Training Program; ATTEND Student in an Organized Health Care Education/Training Program
DX: A08.4 Viral intestinal infection, unspecified (principal); E87.1 Hypo-osmolality and hyponatremia; E78.5 Hyperlipidemia, unspecified; F41.1 Generalized anxiety disorder; F31.9 Bipolar disorder, unspecified; F43.10 Post-traumatic stress disorder, unspecified; Z86.73 Personal history of transient ischemic attack (TIA), and cerebral infarction without residual deficits; I10 Essential (primary) hypertension; K76.0 Fatty (change of) liver, not elsewhere classified; E86.0 Dehydration; D69.6 Thrombocytopenia, unspecified; Z66 Do not resuscitate; Z91.018 Allergy to other foods; F17.210 Nicotine dependence, cigarettes, uncomplicated; Z98.890 Other specified postprocedural states; Z79.82 Long term (current) use of aspirin; Z79.899 Other long term (current) drug therapy
CPT/HCPCS: 36415; 51701; 70450; 70551; 71045; 74176; 76705; 80053; 80074; 80307; 81003; 82553; 82607; 82803; 83550; 83690; 83735; 83880; 84484; 85025; 85060; 85610; 85730; 87502; 93005; 93010; 99285-25; A9270; G0480; J1650; J1790; J2405; J2470; J7030; J7121; U0002

== ENCOUNTER 2025-09-17 16:39 | Emergency (ER) | payer OTHER ==
[~2025-09-17] VITALS: Ht 175.3 cm; Wt 76.0 kg
[~2025-09-17 16:39] MED LIST changes: +LIPITOR40 MG PO; +ONDANSETRON ODT8 MG PO; +PRAZOSIN HCL5 MG PO; +VITAMIN B-121000 MCG PO
[2025-09-17 22:32] VITALS: BP 137/86
[2025-09-18] MEDS ORDERED: HYDROCODON-ACE1 EA10 PO (07:07)
== END 2025-09-17 22:33 | disposition left against medical advice (07) ==
LOC: ED 16:39
DX: L02.411 Cutaneous abscess of right axilla (principal); Z53.29 Procedure and treatment not carried out because of patient's decision for other reasons; I10 Essential (primary) hypertension; F43.10 Post-traumatic stress disorder, unspecified; F17.200 Nicotine dependence, unspecified, uncomplicated; Z91.018 Allergy to other foods; Z88.8 Allergy status to other drugs, medicaments and biological substances
CPT/HCPCS: 99283

== ENCOUNTER 2025-09-18 06:24 | Emergency (ER) | payer OTHER ==
[~2025-09-18] VITALS: Ht 175.3 cm; Wt 76.0 kg
[2025-09-18] MEDS ORDERED: HYDROCODON-ACE1 EA10 PO (07:07)
[2025-09-18] MEDS ORDERED: HYDROCODONE BIT/ACETAMINOPHEN 5/325 MG 1 TAB HOME.PACK PO ONE (07:15)
[2025-09-18] MEDS ORDERED: DOXYCYCLINE HYCLATE 100 MG HOME.PACK PO ONE (07:15)
[2025-09-18 07:25] VITALS: BP 153/88
== END 2025-09-18 07:20 | disposition home or self-care (01) ==
LOC: ED 06:24
DX: L02.411 Cutaneous abscess of right axilla (principal); I10 Essential (primary) hypertension; F43.10 Post-traumatic stress disorder, unspecified; F17.200 Nicotine dependence, unspecified, uncomplicated; Z91.018 Allergy to other foods; Z79.82 Long term (current) use of aspirin
CPT/HCPCS: 10060; 87070; 87075; 87186; 87205; 99283-25; A9270

== ENCOUNTER 2025-09-22 07:56 | Emergency (ER) | payer OTHER ==
[~2025-09-22] VITALS: Ht 175.3 cm; Wt 77.8 kg
[~2025-09-22 07:56] MED LIST changes: +HYDROCODON-ACE1 EA10 PO
[2025-09-22 08:13] VITALS: BP 175/89
== END 2025-09-22 08:12 | disposition home or self-care (01) ==
LOC: ED 07:56
DX: L02.411 Cutaneous abscess of right axilla (principal); Z48.03 Encounter for change or removal of drains; I10 Essential (primary) hypertension; F43.10 Post-traumatic stress disorder, unspecified; F17.200 Nicotine dependence, unspecified, uncomplicated; Z79.82 Long term (current) use of aspirin; Z91.018 Allergy to other foods; Z79.899 Other long term (current) drug therapy
CPT/HCPCS: 99282